=== PATIENT | male | born 1985 | race Caucasian/White ===

== ENCOUNTER 2016-04-21 23:27 | Emergency (ER) | payer OTHER, MEDICAID ==
[2015-07-15 13:00] VITALS: Ht 177.8 cm; Wt 113.4 kg
[~2016-04-21] VITALS: Ht 177.8 cm; Wt 113.4 kg
[~2016-04-21 23:27] MED LIST: AMLO2.5T2 PO; AMOX500T2; BRI.2% OP; CINA90TA PO; CLAR500T; ERYT500T74 PO; FURO40TA5 PO; GABA-531 PO; GLIP-201 PO; GLIP5TAB13 PO; GLU500 PO; HTN MED; HYDR-1115 PO; HYDR-1189 PO; HYDR-4039 PO; LABE100T PO; LATA2.5D6 OP; METFORMIN; METH500T PO; METO-290 PO; METO-442 PO; NOR10 PO; OMEP20CA10 PO; OMEP20CA4; OMEP20CA4 PO; ONDA4TAB5 PO; PRO40 PO; SITA100T7 PO; TIMO5DRO4 OP; VALS160T2 PO; VALS80TA2 PO
[2016-04-21 23:42] VITALS: BP_SYST 165; BP_SYST 197; BP_DIAS 113; BP_DIAS 90; PULSE 78; RESP 18; TEMP 97.8; O2SAT 99
[2016-04-22 00:22] LABS: BASOPHILS % (AUTO) 0.7 % (0.0-2.0); EOSINOPHILS # (AUTO) 0.1 K/uL (0.0-0.4); EOSINOPHILS % (AUTO) 1.7 % (0.0-4.0); HEMATOCRIT 30.5 % (36-54); HEMOGLOBIN 10.2 g/dL (14.0-18.0); LYMPHOCYTES # (AUTO) 1.3 K/uL (1.0-5.5); MEAN CORPUSCULAR HEMOGLOBIN 31 pg (27-31); MEAN CORPUSCULAR HGB CONC 33 % (32-36); MEAN CORPUSCULAR VOLUME 93 fL (79.0-98.0); MONOCYTES # (AUTO) 0.6 K/uL (0.0-1.0); MONOCYTES % (AUTO) 11.1 % (1.7-9.3); NEUTROPHILS # (AUTO) 3.8 K/uL (1.8-7.7); NEUTROPHILS % (AUTO) 63.5 % (40.0-70.0); PLATELET COUNT (AUTO) 210 K/uL (130-430); RED BLOOD CELL COUNT(AUTO) 3.29 MIL/uL (4.2-6.2); RED CELL DISTRIBUTION WIDTH 13.5 % (9.0-15.0); WHITE BLOOD COUNT (AUTO) 5.8 K/uL (4.8-10.8)
[2016-04-22 00:41] LABS: POTASSIUM 4.6 mmol/L (3.5-5.1)
[2016-04-22 00:42] LABS: ALBUMIN 3.6 g/dL (3.4-4.8); TOTAL BILIRUBIN 0.4 mg/dL (0.0-1.0); TOTAL PROTEIN, SERUM 7.5 g/dL (6.4-8.3)
[2016-04-22 01:00] LABS: CREATININE 10.07 mg/dL (0.55-1.30)
[2016-04-22] MEDS ORDERED: HYDROmorphone 2 MG/ML VIAL IM ONE (02:00)
[2016-04-22] MEDS ORDERED: ONDANSETRON 4 MG ODT TAB PO ONE ×2 (02:30→02:45)
[2016-04-22 02:50] VITALS: BP 197/114; PULSE 74; RESP 18; TEMP 97.8; O2SAT 99
== END 2016-04-22 02:50 | disposition home or self-care (01) ==
LOC: SED 23:27
DX: E11.43 Type 2 diabetes mellitus with diabetic autonomic (poly)neuropathy (principal); K31.84 Gastroparesis; I10 Essential (primary) hypertension; Z88.8 Allergy status to other drugs, medicaments and biological substances
CPT/HCPCS: 36415; 80053; 83690; 85025; 96372; 99284; J1170; Q0162

== ENCOUNTER 2016-04-30 06:59 | Inpatient (IN) | payer OTHER, MEDICAID ==
[2016-04-30] VITALS (8 sets, daily range): BP systolic 119–235; BP diastolic 76–146; PULSE 74–97; RESP 18–20; TEMP 97.3–98.5; O2SAT 97–99
[~2016-04-30] VITALS: Ht 177.8 cm; Wt 110.7 kg
[2016-04-30 07:39] LABS: BASOPHILS # (AUTO) 0.2 K/uL (0.0-0.2); BASOPHILS % (AUTO) 1.5 % (0.0-2.0); EOSINOPHILS # (AUTO) 0.1 K/uL (0.0-0.4); EOSINOPHILS % (AUTO) 0.6 % (0.0-4.0); HEMATOCRIT 30.6 % (36-54); HEMOGLOBIN 10.6 g/dL (14.0-18.0); LYMPHOCYTES # (AUTO) 1.8 K/uL (1.0-5.5); LYMPHOCYTES % (AUTO) 14.5 % (20.5-51.5); MEAN CORPUSCULAR HEMOGLOBIN 31 pg (27-31); MEAN CORPUSCULAR HGB CONC 35 % (32-36); MEAN CORPUSCULAR VOLUME 88 fL (79.0-98.0); MONOCYTES # (AUTO) 0.5 K/uL (0.0-1.0); MONOCYTES % (AUTO) 4.1 % (1.7-9.3); NEUTROPHILS # (AUTO) 9.6 K/uL (1.8-7.7); NEUTROPHILS % (AUTO) 79.3 % (40.0-70.0); PLATELET COUNT (AUTO) 295 K/uL (130-430); RED BLOOD CELL COUNT(AUTO) 3.47 MIL/uL (4.2-6.2); RED CELL DISTRIBUTION WIDTH 12.8 % (9.0-15.0); WHITE BLOOD COUNT (AUTO) 12.2 K/uL (4.8-10.8)
[2016-04-30 07:48] LABS: INR 0.9 (0.80-1.20); PROTHROMBIN TIME 10.3 SECS (9.5-12.5)
[2016-04-30 07:54] LABS: ALBUMIN 3.8 g/dL (3.4-4.8); CALCIUM 8.5 mg/dL (8.4-11.0); POTASSIUM 4.7 mmol/L (3.5-5.1); TOTAL BILIRUBIN 0.5 mg/dL (0.0-1.0); TOTAL PROTEIN, SERUM 8.3 g/dL (6.4-8.3)
[2016-04-30 07:56] LABS: BILIRUBIN,URINE NEGATIVE (NEGATIVE); BLOOD, URINE 2+ (NEGATIVE); CLARITY/URINE CLEAR (CLEAR); COLOR,URINE YELLOW (YELLOW); GLUCOSE,URINE TRACE (NEGATIVE); KETONES,URINE NEGATIVE (NEGATIVE); LEUKOCYTE ESTERASE ,URINE NEGATIVE (NEGATIVE); NITRITE, URINE NEGATIVE (NEGATIVE); PH,URINE 7.5 (5.0-8.0); PROTEIN URINE 3+ (NEGATIVE); UROBILINOGEN,URINE 0.2 (0.2-1.0)
[2016-04-30] MEDS ORDERED: MORPHINE 4 MG/ML INJ. SYRINGE IVP ONE (08:00)
[2016-04-30] MEDS ORDERED: ONDANSETRON HCL 4 MG/2 ML VIAL IVP ONE (08:00)
[2016-04-30] MEDS ORDERED: hydrALAZINE HCL 20 MG/ML VIAL IVP ONE (08:00)
[2016-04-30] MEDS ORDERED: PROCHLORPERAZINE EDISYLATE 10 MG/2 ML VIAL IVP ONE (08:00)
[2016-04-30 08:02] LABS: CREATININE 12.03 mg/dL (0.55-1.30)
[2016-04-30] MEDS ORDERED: HYDROmorphone 1 MG INJ. 1 MG/ML AMPUL IVP ONE (08:15)
[2016-04-30 08:26] LABS: BACTERIA,URINE FEW /HPF (None Seen); MUCUS,URINE None Seen /LPF (None Seen); WBC,URINE 0-3 /HPF (0-3)
[2016-04-30] MEDS ORDERED: NITROGLYCERIN 1 INCH (GM) OINT. TP ONE (09:00)
[2016-04-30] MEDS ORDERED: ZOLPIDEM TARTRATE 5 MG TABLET PO PRN (09:30)
[2016-04-30] MEDS ORDERED: MAGNESIUM SULFATE 50 ML IV PRN (09:30)
[2016-04-30] MEDS ORDERED: ACETAMINOPHEN 325 MG TABLET PO PRN (09:30)
[2016-04-30] MEDS ORDERED: METOPROLOL TARTRATE 5 MG/5 ML VIAL IVP PRN (09:30)
[2016-04-30] MEDS ORDERED: HYDROcodone/ACETAMIN 5-325 MG TAB (NORCO/ VICODIN) PO PRN (09:30)
[2016-04-30] MEDS ORDERED: LORazepam 2 MG/ML VIAL IVP PRN (09:30)
[2016-04-30] MEDS ORDERED: POTASSIUM CHLORIDE 10 MEQ TAB.PRT.SR PO PRN (09:30)
[2016-04-30] MEDS ORDERED: INSULIN ASPART 100 UNITS/ML, 10 ML VIAL (NovoLOG) SUBCUT PRN (09:30)
[2016-04-30] MEDS ORDERED: DEXTROSE 50% JECT 50 ML DISP.SYRIN IVP PRN (09:30)
[2016-04-30] MEDS ORDERED: DOCUSATE SODIUM 100 MG CAPSULE PO PRN (09:30)
[2016-04-30] MEDS: MORPHINE 2 MG/ML INJ. SYRINGE IVP PRN ×4 (11:25→23:55)
[2016-04-30] MEDS: ONDANSETRON HCL 4 MG/2 ML VIAL IVP PRN ×2 (11:29→20:22)
[2016-04-30] MEDS ORDERED: HEPARIN SODIUM, PORCINE 10,000 UNITS/ 10 ML VIAL IV ONE (15:00)
[2016-04-30] MEDS: hydrALAZINE HCL 25 MG TABLET PO SCH ×2 (15:00→20:25)
[2016-04-30] MEDS: METOCLOPRAMIDE HCL 10 MG/2 ML VIAL IVP SCH ×2 (15:00→22:05)
[2016-04-30] MEDS ORDERED: HEPARIN SODIUM,PORCINE 5000 UNITS/ML VIAL SUBCUT ONE (15:00)
[2016-04-30] MEDS: VALSARTAN 160 MG TABLET (DIOVAN) PO SCH (20:23)
[2016-04-30] MEDS: FUROSEMIDE 40 MG TABLET PO SCH (20:24)
[2016-04-30] MEDS: METOPROLOL TARTRATE 50 MG TABLET PO SCH (20:24)
[2016-04-30] MEDS: HEPARIN SODIUM,PORCINE 5000 UNITS/ML VIAL SUBCUT SCH (20:27)
[2016-04-30] MEDS: BRIMONIDINE TARTRATE 0.2% 5 mL EYE DROPS OP SCH (20:28)
[2016-04-30] MEDS: LATANOPROST 2.5 ML DROPS (XALATAN) OP SCH (20:28)
[2016-04-30] MEDS: TIMOLOL MALEATE 0.5% OPHTHALMIC DROPS 5 ML OP SCH (20:28)
[2016-05-01 00:38] VITALS: BP 162/79; PULSE 82; RESP 18; TEMP 98.5; O2SAT 96
[2016-05-01 04:06] VITALS: BP 146/78; PULSE 71; RESP 20; TEMP 98.6; O2SAT 91
[2016-05-01] MEDS: ONDANSETRON HCL 4 MG/2 ML VIAL IVP PRN ×2 (04:34→11:23)
[2016-05-01] MEDS: MORPHINE 2 MG/ML INJ. SYRINGE IVP PRN ×5 (04:34→21:07)
[2016-05-01] MEDS: METOCLOPRAMIDE HCL 10 MG/2 ML VIAL IVP SCH ×3 (06:27→23:24)
[2016-05-01 07:25] LABS: BASOPHILS % (AUTO) 0.3 % (0.0-2.0); EOSINOPHILS % (AUTO) 0.3 % (0.0-4.0); HEMATOCRIT 30.2 % (36-54); HEMOGLOBIN 10.3 g/dL (14.0-18.0); LYMPHOCYTES # (AUTO) 1.7 K/uL (1.0-5.5); LYMPHOCYTES % (AUTO) 15.2 % (20.5-51.5); MEAN CORPUSCULAR HEMOGLOBIN 31 pg (27-31); MEAN CORPUSCULAR HGB CONC 34 % (32-36); MEAN CORPUSCULAR VOLUME 90 fL (79.0-98.0); MONOCYTES # (AUTO) 0.7 K/uL (0.0-1.0); MONOCYTES % (AUTO) 6.6 % (1.7-9.3); NEUTROPHILS # (AUTO) 8.6 K/uL (1.8-7.7); NEUTROPHILS % (AUTO) 77.6 % (40.0-70.0); PLATELET COUNT (AUTO) 311 K/uL (130-430); RED BLOOD CELL COUNT(AUTO) 3.36 MIL/uL (4.2-6.2); RED CELL DISTRIBUTION WIDTH 12.6 % (9.0-15.0)
[2016-05-01 07:37] LABS: CALCIUM 8.3 mg/dL (8.4-11.0); POTASSIUM 3.7 mmol/L (3.5-5.1)
[2016-05-01 07:52] LABS: CREATININE 8.64 mg/dL (0.55-1.30)
[2016-05-01] MEDS: VALSARTAN 160 MG TABLET (DIOVAN) PO SCH ×2 (08:32→21:10)
[2016-05-01] MEDS: hydrALAZINE HCL 25 MG TABLET PO SCH ×3 (08:32→21:11)
[2016-05-01] MEDS: METOPROLOL TARTRATE 50 MG TABLET PO SCH ×2 (08:33→21:10)
[2016-05-01] MEDS: amLODIPine BESYLATE 5 MG TABLET PO SCH (08:33)
[2016-05-01] MEDS: PANTOPRAZOLE SODIUM 40 MG TAB PO SCH (08:35)
[2016-05-01] MEDS: CINACALCET HCL 30 MG TABLET PO SCH (08:35)
[2016-05-01] MEDS: LABETALOL HCL 100 MG TABLET PO SCH (08:36)
[2016-05-01] MEDS: FUROSEMIDE 40 MG TABLET PO SCH ×2 (08:37→21:09)
[2016-05-01] MEDS: BRIMONIDINE TARTRATE 0.2% 5 mL EYE DROPS OP SCH ×2 (08:38→21:08)
[2016-05-01] MEDS: TIMOLOL MALEATE 0.5% OPHTHALMIC DROPS 5 ML OP SCH ×2 (08:38→21:08)
[2016-05-01] MEDS: HEPARIN SODIUM,PORCINE 5000 UNITS/ML VIAL SUBCUT SCH ×2 (08:41→21:12)
[2016-05-01] MEDS: METHOCARBAMOL 500 MG TABLET PO SCH ×2 (08:46→21:10)
[2016-05-01] MEDS: GABAPENTIN 300 MG CAPSULE PO SCH ×3 (08:46→21:10)
[2016-05-01] MEDS ORDERED: CINACALCET HCL 30 MG TABLET PO SCH (09:00)
[2016-05-01 12:25] VITALS: BP 151/91; PULSE 83; RESP 16; TEMP 97; O2SAT 98
[2016-05-01 16:00] VITALS: BP 177/103; PULSE 82; RESP 21; TEMP 98.2; O2SAT 99
[2016-05-01 19:35] VITALS: BP 154/77; PULSE 84; RESP 18; TEMP 98.9; O2SAT 97
[2016-05-01] MEDS: LATANOPROST 2.5 ML DROPS (XALATAN) OP SCH (21:09)
[2016-05-02 00:28] VITALS: BP 133/92; PULSE 79; RESP 17; TEMP 98.8; O2SAT 93
[2016-05-02] MEDS: MORPHINE 2 MG/ML INJ. SYRINGE IVP PRN ×5 (02:13→20:01)
[2016-05-02] MEDS: ONDANSETRON HCL 4 MG/2 ML VIAL IVP PRN ×3 (02:18→19:59)
[2016-05-02 04:18] VITALS: BP 153/97; PULSE 83; RESP 20; TEMP 97.8; O2SAT 97
[2016-05-02] MEDS: METOCLOPRAMIDE HCL 10 MG/2 ML VIAL IVP SCH ×3 (06:56→22:12)
[2016-05-02 07:31] LABS: CALCIUM 7.5 mg/dL (8.4-11.0)
[2016-05-02 07:37] LABS: BASOPHILS # (AUTO) 0.1 K/uL (0.0-0.2); BASOPHILS % (AUTO) 0.6 % (0.0-2.0); EOSINOPHILS # (AUTO) 0.1 K/uL (0.0-0.4); EOSINOPHILS % (AUTO) 0.7 % (0.0-4.0); HEMATOCRIT 27.5 % (36-54); HEMOGLOBIN 9.4 g/dL (14.0-18.0); LYMPHOCYTES # (AUTO) 3.9 K/uL (1.0-5.5); LYMPHOCYTES % (AUTO) 38.4 % (20.5-51.5); MEAN CORPUSCULAR HEMOGLOBIN 31 pg (27-31); MEAN CORPUSCULAR HGB CONC 34 % (32-36); MEAN CORPUSCULAR VOLUME 90 fL (79.0-98.0); NEUTROPHILS # (AUTO) 5.1 K/uL (1.8-7.7); NEUTROPHILS % (AUTO) 50.3 % (40.0-70.0); PLATELET COUNT (AUTO) 309 K/uL (130-430); RED BLOOD CELL COUNT(AUTO) 3.05 MIL/uL (4.2-6.2); RED CELL DISTRIBUTION WIDTH 12.8 % (9.0-15.0); WHITE BLOOD COUNT (AUTO) 10.2 K/uL (4.8-10.8)
[2016-05-02 07:54] LABS: CREATININE 10.18 mg/dL (0.55-1.30)
[2016-05-02 08:06] VITALS: BP 148/85; PULSE 74; RESP 17; TEMP 98.4; O2SAT 99
[2016-05-02] MEDS: BRIMONIDINE TARTRATE 0.2% 5 mL EYE DROPS OP SCH ×2 (09:10→22:04)
[2016-05-02] MEDS: TIMOLOL MALEATE 0.5% OPHTHALMIC DROPS 5 ML OP SCH ×2 (09:10→22:08)
[2016-05-02] MEDS: amLODIPine BESYLATE 5 MG TABLET PO SCH (09:11)
[2016-05-02] MEDS: METOPROLOL TARTRATE 50 MG TABLET PO SCH ×2 (09:11→22:10)
[2016-05-02] MEDS: METHOCARBAMOL 500 MG TABLET PO SCH ×2 (09:11→22:16)
[2016-05-02] MEDS: PANTOPRAZOLE SODIUM 40 MG TAB PO SCH (09:12)
[2016-05-02] MEDS: VALSARTAN 160 MG TABLET (DIOVAN) PO SCH ×2 (09:12→22:12)
[2016-05-02] MEDS: FUROSEMIDE 40 MG TABLET PO SCH ×2 (09:12→22:11)
[2016-05-02] MEDS: CINACALCET HCL 30 MG TABLET PO SCH (09:12)
[2016-05-02] MEDS: GABAPENTIN 300 MG CAPSULE PO SCH ×3 (09:12→22:12)
[2016-05-02] MEDS: hydrALAZINE HCL 25 MG TABLET PO SCH ×3 (09:13→22:11)
[2016-05-02] MEDS: LABETALOL HCL 100 MG TABLET PO SCH (09:14)
[2016-05-02] MEDS: HEPARIN SODIUM,PORCINE 5000 UNITS/ML VIAL SUBCUT SCH ×2 (09:15→22:15)
[2016-05-02] MEDS ORDERED: DIATR MEGLU/DIATRIZ SOD 30 ML SOLUTION PO ONE (09:24)
[2016-05-02 12:16] VITALS: BP 140/80; PULSE 72; RESP 16; TEMP 98; O2SAT 97
[2016-05-02 14:11] VITALS: Ht 177.8 cm; Wt 110.7 kg
[2016-05-02 15:30] VITALS: BP 136/71; PULSE 82; RESP 19; TEMP 98.4; O2SAT 99
[2016-05-02] MEDS ORDERED: EPOETIN ALFA 3,000 UNITS/ML VIAL SUBCUT SCH (17:00)
[2016-05-02 19:53] VITALS: BP 142/81; PULSE 81; RESP 18; TEMP 98.8; O2SAT 98
[2016-05-02] MEDS: LATANOPROST 2.5 ML DROPS (XALATAN) OP SCH (22:07)
[2016-05-03] MEDS: MORPHINE 2 MG/ML INJ. SYRINGE IVP PRN ×3 (00:22→10:26)
[2016-05-03 01:17] VITALS: BP 141/87; PULSE 80; RESP 17; TEMP 98.4; O2SAT 98
[2016-05-03 04:48] VITALS: BP 148/86; PULSE 76; RESP 18; TEMP 98.5; O2SAT 94
[2016-05-03] MEDS: METOCLOPRAMIDE HCL 10 MG/2 ML VIAL IVP SCH (05:36)
[2016-05-03 07:30] LABS: BASOPHILS # (AUTO) 0.1 K/uL (0.0-0.2); BASOPHILS % (AUTO) 0.9 % (0.0-2.0); EOSINOPHILS # (AUTO) 0.1 K/uL (0.0-0.4); HEMATOCRIT 26.1 % (36-54); HEMOGLOBIN 9.1 g/dL (14.0-18.0); LYMPHOCYTES # (AUTO) 3.4 K/uL (1.0-5.5); LYMPHOCYTES % (AUTO) 34.1 % (20.5-51.5); MEAN CORPUSCULAR HEMOGLOBIN 31 pg (27-31); MEAN CORPUSCULAR HGB CONC 35 % (32-36); MEAN CORPUSCULAR VOLUME 89 fL (79.0-98.0); MONOCYTES # (AUTO) 0.8 K/uL (0.0-1.0); MONOCYTES % (AUTO) 8.3 % (1.7-9.3); NEUTROPHILS # (AUTO) 5.5 K/uL (1.8-7.7); NEUTROPHILS % (AUTO) 55.7 % (40.0-70.0); PLATELET COUNT (AUTO) 316 K/uL (130-430); RED BLOOD CELL COUNT(AUTO) 2.92 MIL/uL (4.2-6.2); RED CELL DISTRIBUTION WIDTH 12.7 % (9.0-15.0); WHITE BLOOD COUNT (AUTO) 9.9 K/uL (4.8-10.8)
[2016-05-03 07:49] LABS: POTASSIUM 4.2 mmol/L (3.5-5.1)
[2016-05-03 07:58] LABS: CREATININE 11.17 mg/dL (0.55-1.30)
[2016-05-03 08:15] VITALS: BP 164/93; PULSE 82; RESP 20; TEMP 98.6; O2SAT 99
[2016-05-03] MEDS: METHOCARBAMOL 500 MG TABLET PO SCH (08:22)
[2016-05-03] MEDS: TIMOLOL MALEATE 0.5% OPHTHALMIC DROPS 5 ML OP SCH (08:22)
[2016-05-03] MEDS: CINACALCET HCL 30 MG TABLET PO SCH (08:22)
[2016-05-03] MEDS: GABAPENTIN 300 MG CAPSULE PO SCH (08:22)
[2016-05-03] MEDS: FUROSEMIDE 40 MG TABLET PO SCH (08:23)
[2016-05-03] MEDS: BRIMONIDINE TARTRATE 0.2% 5 mL EYE DROPS OP SCH (08:24)
[2016-05-03] MEDS: HEPARIN SODIUM,PORCINE 5000 UNITS/ML VIAL SUBCUT SCH (08:25)
[2016-05-03] MEDS: PANTOPRAZOLE SODIUM 40 MG TAB PO SCH (08:26)
[2016-05-03] MEDS: hydrALAZINE HCL 25 MG TABLET PO SCH (09:00)
[2016-05-03] MEDS: VALSARTAN 160 MG TABLET (DIOVAN) PO SCH (09:00)
[2016-05-03] MEDS: METOPROLOL TARTRATE 50 MG TABLET PO SCH (09:00)
[2016-05-03] MEDS: amLODIPine BESYLATE 5 MG TABLET PO SCH (09:00)
[2016-05-03] MEDS: LABETALOL HCL 100 MG TABLET PO SCH (09:00)
[2016-05-03 11:42] VITALS: BP 154/88; PULSE 79; RESP 20; TEMP 98.4; O2SAT 99
[2016-05-03] MEDS: ONDANSETRON HCL 4 MG/2 ML VIAL IVP PRN (11:52)
[2016-05-03 12:28] VITALS: BP 149/103; PULSE 74; RESP 18; TEMP 97.8; O2SAT 97
== END 2016-05-03 13:38 | disposition home or self-care (01) | DRG 682 ==
LOC: SED 06:59 → STU 09:01
PROVIDERS: ADMIT General Practice; ATTEND General Practice
PROC: 5A1D00Z (ICD-10-PCS; principal; 2016-04-30)
DX: I12.0 Hypertensive chronic kidney disease with stage 5 chronic kidney disease or end stage renal disease (principal); N18.6 End stage renal disease; N17.9 Acute kidney failure, unspecified; I16.0 Hypertensive urgency; E11.43 Type 2 diabetes mellitus with diabetic autonomic (poly)neuropathy; E11.65 Type 2 diabetes mellitus with hyperglycemia; E11.319 Type 2 diabetes mellitus with unspecified diabetic retinopathy without macular edema; D63.1 Anemia in chronic kidney disease; D72.829 Elevated white blood cell count, unspecified; E11.22 Type 2 diabetes mellitus with diabetic chronic kidney disease; F12.90 Cannabis use, unspecified, uncomplicated; G89.29 Other chronic pain; H54.0 Blindness, both eyes; K21.9 Gastro-esophageal reflux disease without esophagitis; K27.9 Peptic ulcer, site unspecified, unspecified as acute or chronic, without hemorrhage or perforation; K31.84 Gastroparesis; M62.838 Other muscle spasm; Z99.2 Dependence on renal dialysis; Z83.3 Family history of diabetes mellitus; Z87.891 Personal history of nicotine dependence; Z91.14 Patient's other noncompliance with medication regimen; Z88.8 Allergy status to other drugs, medicaments and biological substances; Z79.899 Other long term (current) drug therapy
CPT/HCPCS: 36415; 71010; 74000-TC; 80048; 80053; 81000-TC; 82962; 83690-TC; 83735-TC; 85025; 85610-TC; 85730-TC; 87081; 90935; 96374; 96375; 99285; J0360; J0780; J0885; J1170; J1644; J1815; J2270; J2405; J2765; J3490; J7030; Q9964

== ENCOUNTER 2016-05-23 20:23 | Inpatient (IN) | payer OTHER, MEDICAID ==
[~2016-05-23] VITALS: Ht 177.8 cm; Wt 113.4 kg
[2016-05-23 20:30] VITALS: BP 203/135; PULSE 84; RESP 13; TEMP 98.2; O2SAT 95
--- NOTE | 2016-05-23 20:30 | NUR ---
Patient to ER bed 4 to gown for evaluation. Side rails up. Report given to BRANNON Diaz.
--- NOTE | 2016-05-23 20:40 | NUR ---
Pt c/o 10/10 headache and LUQ abdominal pain. Reports he has also been experiencing N/V (vomited x5 at home) and SOB. Pt reports he is also legally blind. Pt saw opthamologist earlier today and was prescribed vicodin for eye pain. Pt reports r eye swelling began after administration of vicodin, along w other symptoms he was experiencing. Pt reports he has taken vicodin before and did not experience any symptoms. Mild distress noted. Will continue to monitor.
[2016-05-23] MEDS ORDERED: PANTOPRAZOLE SODIUM 40 MG/VIAL (PROTONIX) IVP ONE (20:45)
[2016-05-23] MEDS ORDERED: DIPHENHYDRAMINE INJ 50 MG/ML VIAL IVP ONE (20:45)
[2016-05-23] MEDS ORDERED: METOCLOPRAMIDE HCL 10 MG/2 ML VIAL IVP ONE (20:45)
--- NOTE | 2016-05-23 20:45 | NUR ---
ER Dr. Davalos at bedside examining patient.
--- NOTE | 2016-05-23 20:50 | NUR ---
# 20 gauge angiocath placed to L FA. Use of asceptic technique. Opsite placed over site. Blood return noted. Flushed with 10 cc of normal saline. No evidence of infiltration noted. Patient tolerated well.
[2016-05-23 21:28] LABS: BASOPHILS # (AUTO) 0.1 K/uL (0.0-0.2); BASOPHILS % (AUTO) 0.5 % (0.0-2.0); EOSINOPHILS # (AUTO) 0.1 K/uL (0.0-0.4); EOSINOPHILS % (AUTO) 1.1 % (0.0-4.0); HEMATOCRIT 31.2 % (36-54); HEMOGLOBIN 10.2 g/dL (14.0-18.0); LYMPHOCYTES # (AUTO) 1.3 K/uL (1.0-5.5); LYMPHOCYTES % (AUTO) 10.9 % (20.5-51.5); MEAN CORPUSCULAR HEMOGLOBIN 31 pg (27-31); MEAN CORPUSCULAR HGB CONC 33 % (32-36); MEAN CORPUSCULAR VOLUME 93 fL (79.0-98.0); MONOCYTES # (AUTO) 0.3 K/uL (0.0-1.0); MONOCYTES % (AUTO) 2.4 % (1.7-9.3); NEUTROPHILS # (AUTO) 10.2 K/uL (1.8-7.7); NEUTROPHILS % (AUTO) 85.1 % (40.0-70.0); PLATELET COUNT (AUTO) 348 K/uL (130-430); RED BLOOD CELL COUNT(AUTO) 3.36 MIL/uL (4.2-6.2); RED CELL DISTRIBUTION WIDTH 14.3 % (9.0-15.0)
[2016-05-23 21:30] LABS: CALCIUM 7.4 mg/dL (8.4-11.0)
[2016-05-23] MEDS ORDERED: HYDROmorphone 1 MG INJ. 1 MG/ML AMPUL IVP ONE ×2 (21:30→22:30)
[2016-05-23] MEDS ORDERED: ONDANSETRON HCL 4 MG/2 ML VIAL IVP ONE ×2 (21:30→22:30)
[2016-05-23 21:35] LABS: ALBUMIN 3.5 g/dL (3.4-4.8); TOTAL BILIRUBIN 0.4 mg/dL (0.0-1.0); TOTAL PROTEIN, SERUM 7.2 g/dL (6.4-8.3)
[2016-05-23 21:39] LABS: CREATININE 9.84 mg/dL (0.55-1.30); POTASSIUM 5.8 mmol/L (3.5-5.1)
[2016-05-23] MEDS ORDERED: SODIUM POLYSTYRENE SULFONATE 15 GM/60 ML UDBTL PO ONE (22:15)
[2016-05-23] MEDS ORDERED: hydrALAZINE HCL 20 MG/ML VIAL IVP ONE ×2 (22:30→23:15)
--- NOTE | 2016-05-24 00:25 | NUR ---
Patient will be admitted to care of Dr Phelan. Admitted to ICU unit. Pt currently on hold in ER, no available nurse in ICU at this time. Will continue to monitor
[2016-05-24] MEDS ORDERED: METH500T PO (00:42)
[2016-05-24] MEDS ORDERED: CINA90TA PO (00:42)
[2016-05-24] MEDS ORDERED: ALPR0.2583 PO (00:42)
[2016-05-24] MEDS ORDERED: SITA100T7 PO (00:42)
[2016-05-24] MEDS ORDERED: METO-442 PO (00:42)
[2016-05-24] MEDS ORDERED: CLON0.1T PO (00:42)
[2016-05-24] MEDS ORDERED: HYDR-3110 PO (00:42)
[2016-05-24] MEDS ORDERED: LABETALOL 100 MG/ 20ML VIAL IVP ONE ×3 (00:45→01:45)
--- NOTE | 2016-05-24 00:53 | NUR ---
Hypertension Bp continues to remain elevated, 183/112. 2nd dose of Labetolol 20mg IVp administered. Will continue to monitor pt.
[2016-05-24] MEDS ORDERED: GABAPENTIN 300 MG CAPSULE PO SCH (01:00)
[2016-05-24] MEDS ORDERED: HYDROcodone/ACETAMIN 5-325 MG TAB (NORCO/ VICODIN) PO PRN ×2 (01:00)
[2016-05-24] MEDS ORDERED: METHOCARBAMOL 500 MG TABLET PO SCH (01:00)
[2016-05-24] MEDS ORDERED: ALPRAZolam 0.25 MG TABLET PO SCH (01:00)
[2016-05-24] MEDS: cloNIDine HCL 0.2 MG TABLET PO PRN ×2 (01:56→18:44)
[2016-05-24] MEDS: MORPHINE 2 MG/ML INJ. SYRINGE IVP PRN ×5 (01:56→17:22)
--- NOTE | 2016-05-24 02:00 | NUR ---
Pain Pt c/o 10/10 pain to abdomen. Will admininster morphine per MD order and continue to monitor
[2016-05-24] MEDS ORDERED: cloNIDine HCL 0.1 MG TABLET ONE (02:02)
[2016-05-24] MEDS: ONDANSETRON HCL 4 MG/2 ML VIAL IVP PRN ×4 (02:07→15:35)
--- NOTE | 2016-05-24 04:00 | NUR ---
No acute changes in condition noted at this time. Pt resting comfortably. BP slowly decreasing. Pt moved to ER bed 6 for comfort. Will continue to monitor
[2016-05-24] MEDS: METOPROLOL TARTRATE 5 MG/5 ML VIAL IVP PRN ×2 (04:35→11:04)
[2016-05-24] MEDS ORDERED: hydrALAZINE HCL 25 MG TABLET ONE (05:37)
--- NOTE | 2016-05-24 06:00 | NUR ---
Pain Pt c/o abdominal pain, requesting pain medication. Medicated w Morphine per MD order. No acute distress noted. Bp continues to remain elevated. Will continue to monitor.
[2016-05-24] MEDS: hydrALAZINE HCL 25 MG TABLET PO SCH ×3 (06:03→20:10)
--- NOTE | 2016-05-24 07:26 | NUR ---
Pt care endorsed to BRANNON Cuello.
--- NOTE | 2016-05-24 07:30 | NUR ---
Assumed care, pt AAOx4. Pt 's L eye swollen at ice pack given.Dr. Phelan call to downgrade pt. BP 172/99. Pt reports dialysis schedule T,,SAT.
[2016-05-24] MEDS ORDERED: ONDANSETRON HCL 4 MG/2 ML VIAL ONE (08:09)
--- NOTE | 2016-05-24 08:09 | NUR ---
Pt c/o nausea.Pt medicated w/ zofran. pt tolerated well.Continuing to monitor.
--- NOTE | 2016-05-24 08:15 | NUR ---
Pt medicated for pain 12/27.
--- NOTE | 2016-05-24 08:39 | NUR ---
O2 sat NC applied after Morphine administration.
--- NOTE | 2016-05-24 09:05 | NUR ---
Received order for admission to telemetry.
--- NOTE | 2016-05-24 10:05 | NUR ---
Patient will be admitted to care of . Admitted to Telemetry unit. Will go to room 116A. Summary report printed. Report given to Admission RN.
--- NOTE | 2016-05-24 10:30 | NUR ---
Initial Note Received pt from ER as a transfer due to the patient admitted in ICU last night but no bed available. No medications have been administered for 9am, dialysis order will be given to soda dry house operator for today, admission assessment will be done. Pt aaox4, verbal. Orders will be carried out. Charge nurse and nurse applications project manager aware of situation with pt.
--- NOTE | 2016-05-24 10:33 | NUR ---
ADMIT NOTE Received pt from ER to the floor with a diagnosis of Hypertensive crisis and Intractable vomitting. Admission process initiated. Patient oriented to pain management, safety and call light-teach back done.
--- NOTE | 2016-05-24 10:45 | NUR ---
Initial note A/O x 4, mild SOB and receiving 3 L O2, denied chest pain, but c/o R side of head pain 12/27. Patient aware he already took pain med. Denied N/V. Skin warm to touch, One tattoo at L upper chest, and one tattoo at upper back. One dialysis cath at R upper chest, IV #20 at L FA, patent, free of infection or infiltration. +2 radial and pedal pulses without edema, distended ABD but soft, denied pain on ABD or legs. Call light within reach, will continue to monitor patient. Addendum: 05/24/16 at 1401 by Laya Quintana RN NOTED PT HAS SWELLING ON RIGHT EYE, NOT ABLE TO OPEN IT, ABLE TO OPEN LEFT EYE, RESPONSE OF PUPIL IS 3MM, REACTIVE TO LIGHT, ROUND, ACCOMMODATE.
[2016-05-24] MEDS: FUROSEMIDE 40 MG TABLET PO SCH ×2 (10:59→20:09)
[2016-05-24] MEDS: VALSARTAN 160 MG TABLET (DIOVAN) PO SCH ×2 (10:59→20:09)
[2016-05-24] MEDS: amLODIPine BESYLATE 5 MG TABLET PO SCH (11:00)
[2016-05-24] MEDS: LABETALOL HCL 100 MG TABLET PO SCH (11:00)
[2016-05-24] MEDS: METOPROLOL TARTRATE 50 MG TABLET PO SCH ×2 (11:00→20:08)
[2016-05-24] MEDS: CINACALCET HCL 30 MG TABLET PO SCH (11:01)
[2016-05-24] MEDS: PANTOPRAZOLE SODIUM 40 MG TAB PO SCH (11:01)
[2016-05-24 11:12] VITALS: BP 188/108; PULSE 98; RESP 16; TEMP 97.9; O2SAT 98
[2016-05-24] MEDS: INSULIN REGULAR, HUMAN 100 UNITS/ML, 10 ML VIAL (novoLIN R) SUBCUT PRN ×2 (11:21→17:38)
[2016-05-24] MEDS: TIMOLOL MALEATE 0.5% OPHTHALMIC DROPS 5 ML OP SCH ×2 (11:25→20:31)
--- NOTE | 2016-05-24 11:35 | NUR ---
CALL Dr rick pratt, awaiting call back to notify him of possible nondisplaced fracture of right orbital floor, charge nurse aware. Addendum: 05/24/16 at 1144 by Laya Quintana RN Dr Phelan made aware, no new orders given.
--- NOTE | 2016-05-24 12:25 | NUR ---
Round A/O x 4, mild SOB and receiving 3 L O2, denied chest pain, but c/o R side of head pain 7/10. Sleep/rest in bed. Denied N/V. Skin warm to touch, Dialysis cath at R upper chest, IV #20 at L FA, patent, free of infection or infiltration. clear lung sounds and bowel sounds present all quadrants. Rechecked VS was 161/98/88, O2 sat 100% on 3 L. +2 radial and pedal pulses without edema, distended ABD but soft, denied pain on ABD or legs. Call light within reach, will continue to monitor patient.
--- NOTE | 2016-05-24 13:41 | NUR ---
CONSULT CALLED FOR CONSULT FOR PATIENT WITH DR. LARA FOR RIGHT ORBIT INFLAMMATION . SPOKE WITH DIDI
--- NOTE | 2016-05-24 14:15 | NUR ---
Round A/O x 4, mild SOB and receiving 3 L O2, denied chest pain, pain subsided. Blind on both eyes. Sleep/rest in bed. Denied N/V. Skin warm to touch, Dialysis cath at R upper chest, IV #20 at L FA, patent, free of infection or infiltration. clear lung sounds and bowel sounds present all quadrants. Assisted patient urination by using urinal. Clear light yellow urine noted. +2 radial and pedal pulses without edema, distended ABD but soft, denied pain on ABD or legs. Call light within reach, will continue to monitor patient.
--- NOTE | 2016-05-24 15:43 | NUR ---
CALL Paged Dr Morales in regards to pain medication, per pt morphine is not effective and wants dilaudid, awaiting call back. Addendum: 05/24/16 at 1705 by Laya Quintana RN SPOKE WITH DR MORALES, HE WILL COME IN AND SEE PT AND ASSESS PAIN MEDICATIONS.
--- NOTE | 2016-05-24 16:00 | NUR ---
Round A/O x 4, mild SOB and receiving 3 L O2, denied chest pain, pain subsided. Blind on both eyes. Sleep/rest in bed. Skin warm to touch, Dialysis cath at R upper chest, IV #20 at L FA, patent, free of infection or infiltration. clear lung sounds and bowel sounds present all quadrants. Vomiting x 1, Zofran given. +2 radial and pedal pulses without edema, distended ABD but soft, denied pain on ABD or legs. Call light within reach, will continue to monitor patient.
--- NOTE | 2016-05-24 16:05 | NUR ---
MEDICATION REASSESSMENT Pt no longer feels nauseas, no vomiting noted, will continue to monitor pt for any changes. Dr cabrera repaged to notify him of pain medication not being effective, awaiting call back.
[2016-05-24 16:20] VITALS: BP 166/86; PULSE 86; RESP 18; TEMP 98.6; O2SAT 99
--- NOTE | 2016-05-24 18:02 | NUR ---
Closing Note Pt in bed, no s/s of distress or sob noted, pt resting comfortably with eyes closed, pt receiving dialysis at this time, pt in stable condition. Needs met throughout shift. Bed at lowest position, call light within reach, will endorse care of pt to incoming nurse.
[2016-05-24] MEDS ORDERED: ALPRAZolam 0.25 MG TABLET PO PRN (18:15)
[2016-05-24 20:00] VITALS: BP 202/126; PULSE 85; RESP 18; TEMP 98.3; O2SAT 98
--- NOTE | 2016-05-24 20:00 | NUR ---
Initial Notes Received patient laying in bed, awake, alert, oriented. Patient currently finishing HD, family at bedside. Patient denies any acute distress, but complains of headache, will medicate per MD orders. Patient is blind both eyes. Blood pressure elevated. Breathing even and unlabored on 3L N/C. IV site patent/clean/dry. Joao cath to right chest wall, dressing clean/dry/intact. Educated patient on use of call light for assistance and fall precautions, patient verbalized understanding. Call light in hand, will continue to monitor.
[2016-05-24] MEDS: HYDROmorphone 1 MG INJ. 1 MG/ML AMPUL IVP PRN (20:08)
[2016-05-24] MEDS: LATANOPROST 2.5 ML DROPS (XALATAN) OP SCH (20:32)
--- NOTE | 2016-05-24 22:00 | NUR ---
Rounds Patient resting in bed, awake, family at bedside. Patient denies any acute distress or pain at this time. Breathing even and unlabored. Needs addressed, call light in hand, will continue to monitor.
--- NOTE | 2016-05-25 | NUR ---
Rounds Patient resting in bed with eyes closed. No acute distress noted, breathing even and unlabored. Call light in hand, will continue to monitor.
[2016-05-25 01:05] VITALS: BP 152/96; PULSE 79; RESP 18; TEMP 98.6; O2SAT 100
[2016-05-25] MEDS: HYDROmorphone 1 MG INJ. 1 MG/ML AMPUL IVP PRN ×6 (01:16→21:54)
[2016-05-25 01:49] LABS: BILIRUBIN,URINE NEGATIVE (NEGATIVE); CLARITY/URINE CLEAR (CLEAR); COLOR,URINE YELLOW (YELLOW); GLUCOSE,URINE 1+ (NEGATIVE); KETONES,URINE NEGATIVE (NEGATIVE); LEUKOCYTE ESTERASE ,URINE NEGATIVE (NEGATIVE); NITRITE, URINE NEGATIVE (NEGATIVE); PH,URINE 7.5 (5.0-8.0); PROTEIN URINE 3+ (NEGATIVE); UROBILINOGEN,URINE 0.2 (0.2-1.0)
[2016-05-25 01:59] LABS: BLOOD, URINE TRACE (NEGATIVE)
--- NOTE | 2016-05-25 02:00 | NUR ---
Rounds Patient resting comfortably in bed with eyes closed, easily aroused upon nurse entering room. Patient denies any acute distress or pain at this time. Breathing even and unlabored. Needs addressed. Call light in hand, fall precautions in place. Will continue to monitor.
[2016-05-25 02:08] LABS: BACTERIA,URINE FEW /HPF (None Seen); MUCUS,URINE None Seen /LPF (None Seen); RBC,URINE 0-3 /HPF (0-3); WBC,URINE 0-3 /HPF (0-3)
[2016-05-25 03:31] VITALS: BP 186/99; PULSE 84; RESP 18; TEMP 98; O2SAT 97
[2016-05-25] MEDS: METOPROLOL TARTRATE 5 MG/5 ML VIAL IVP PRN ×2 (03:55→16:35)
--- NOTE | 2016-05-25 04:00 | NUR ---
Rounds Patient resting in bed, easily aroused. Patient denies any acute distress or pain at this time. Breathing even and unlabored. Medicated patient for elevated BP per MD orders. Needs addressed. Call light in hand, fall precautions in place. Will continue to monitor.
[2016-05-25 05:05] VITALS: BP 157/98; PULSE 80
[2016-05-25] MEDS: hydrALAZINE HCL 25 MG TABLET PO SCH ×3 (05:14→21:47)
--- NOTE | 2016-05-25 06:29 | NUR ---
Closing Notes Patient resting in bed with eyes closed, easily aroused. Patient denies any acute distress or pain at this time. Breathing even and unlabored on room air. IV site patent/clean/dry, no S/S infection/infiltration noted. Needs addressed throughout shift. Call light in hand, fall precautions in place. Will continue to monitor for changes and safety, and endorse all patient care/needs to oncoming nurse.
[2016-05-25 07:56] LABS: BASOPHILS % (AUTO) 0.4 % (0.0-2.0); EOSINOPHILS # (AUTO) 0.1 K/uL (0.0-0.4); EOSINOPHILS % (AUTO) 0.7 % (0.0-4.0); HEMATOCRIT 30.4 % (36-54); LYMPHOCYTES # (AUTO) 1.2 K/uL (1.0-5.5); LYMPHOCYTES % (AUTO) 10.8 % (20.5-51.5); MEAN CORPUSCULAR HEMOGLOBIN 31 pg (27-31); MEAN CORPUSCULAR HGB CONC 33 % (32-36); MEAN CORPUSCULAR VOLUME 94 fL (79.0-98.0); MONOCYTES # (AUTO) 0.6 K/uL (0.0-1.0); MONOCYTES % (AUTO) 5.5 % (1.7-9.3); NEUTROPHILS # (AUTO) 8.8 K/uL (1.8-7.7); NEUTROPHILS % (AUTO) 82.6 % (40.0-70.0); PLATELET COUNT (AUTO) 267 K/uL (130-430); RED BLOOD CELL COUNT(AUTO) 3.24 MIL/uL (4.2-6.2); RED CELL DISTRIBUTION WIDTH 14.6 % (9.0-15.0); WHITE BLOOD COUNT (AUTO) 10.7 K/uL (4.8-10.8)
--- NOTE | 2016-05-25 08:00 | NUR ---
OPENING NOTE: RECEIVED REPORT FROM NIGHT NURSE. PATIENT IS RESTING COMFORTABLY IN BED. NO S/S OF DISTRESS OR SOB. PATIENT IS ALERT AND ORIENTED, ABLE TO EXPRESS NEEDS, AND ASK FOR ASSISTANCE. VITAL SIGNS TAKEN, BLOOD PRESSURE IS ELEVATED. MORNING MEDICATIONS FOR BLOOD PRESSURE WILL BE GIVEN. ASSESSMENT COMPLETE. CALL LIGHT IN REACH, BED IN LOWEST POSITION, AND WILL CONTINUE TO MONITOR.
[2016-05-25 08:45] VITALS: BP 192/109; PULSE 92; RESP 18; TEMP 97.5; O2SAT 94
[2016-05-25 09:07] LABS: CALCIUM 8.1 mg/dL (8.4-11.0); POTASSIUM 4.4 mmol/L (3.5-5.1)
[2016-05-25 09:08] LABS: THYROID STIMULATING HORMONE 1.28 uIu/mL (0.36-3.74)
[2016-05-25 09:10] LABS: CREATININE 7.66 mg/dL (0.55-1.30)
[2016-05-25] MEDS: ONDANSETRON HCL 4 MG/2 ML VIAL IVP PRN ×3 (09:16→18:52)
[2016-05-25] MEDS: CINACALCET HCL 30 MG TABLET PO SCH (09:18)
[2016-05-25] MEDS: amLODIPine BESYLATE 5 MG TABLET PO SCH (09:18)
[2016-05-25] MEDS: METOPROLOL TARTRATE 50 MG TABLET PO SCH ×2 (09:19→21:00)
[2016-05-25] MEDS: PANTOPRAZOLE SODIUM 40 MG TAB PO SCH (09:19)
[2016-05-25] MEDS: VALSARTAN 160 MG TABLET (DIOVAN) PO SCH ×2 (09:19→21:00)
[2016-05-25] MEDS: FUROSEMIDE 40 MG TABLET PO SCH ×2 (09:19→21:00)
[2016-05-25] MEDS: TIMOLOL MALEATE 0.5% OPHTHALMIC DROPS 5 ML OP SCH ×2 (09:20→22:00)
--- NOTE | 2016-05-25 09:20 | NUR ---
PAIN PATIENT C/O OF PAIN 12/27. PAIN MEDICATION WAS ADMINISTERED. PATIENT EDUCATED ON MEDICATION SIDE-EFFECTS AND ON USING THE CALL LIGHT TO CALL FOR ASSISTANCE. PATIENT IS LEGALLY BLIND. BED ALARM IS ON. PATIENT VERBALIZED UNDERSTANDING.
[2016-05-25] MEDS: LABETALOL HCL 100 MG TABLET PO SCH (09:21)
--- NOTE | 2016-05-25 10:00 | NUR ---
NOTE: PATIENT IS RESTING COMFORTABLY IN BED. NO S.S OF DISTRESS OR SOB. PATIENT IS ALERT AND ORIENTED, ABLE TO EXPRESS NEEDS, AND ASK FOR ASSISTANCE. CALL LIGHT IN REACH, BED IN LOWEST POSITION, AND WILL CONTINUE TO MONITOR.
[2016-05-25 11:45] LABS: URINE SODIUM, RANDOM 47 mmol/L (40-220)
--- NOTE | 2016-05-25 13:30 | NUR ---
PAIN C/O OF 10 PAIN. PAIN MEDICATION ADMINISTERED. PATIENT EDUCATED ON USING CALL LIGHT TO CALL FOR HELP OR ASSISTANCE.
[2016-05-25 16:00] VITALS: BP 169/124; PULSE 97; RESP 21; TEMP 98.7; O2SAT 99
[2016-05-25] MEDS: INSULIN REGULAR, HUMAN 100 UNITS/ML, 10 ML VIAL (novoLIN R) SUBCUT PRN (18:02)
--- NOTE | 2016-05-25 18:35 | NUR ---
CLOSING NOTE: PATIENT IS RESTING COMFORTABLY IN BED. NO S.S OF DISTRESS OR SOB. PATIENT IS ALERT AND ORIENTED, ABLE TO EXPRESS NEEDS, AND ASK FOR ASSISTANCE. FAMILY AT BEDSIDE. CALL LIGHT IN REACH, BED IN LOWEST POSITION, AND WILL GIVE REPORT TO NIGHT NURSE.
[2016-05-25 20:00] VITALS: BP 198/110; PULSE 80; RESP 18; TEMP 97.4; O2SAT 98
--- NOTE | 2016-05-25 20:00 | NUR ---
Initial Notes Received patient resting in bed, awake, alert, oriented, family at bedside. Patient denies any acute distress or pain at this time, does complain of nausea, medicated per MD order by prior nurse. Breathing even and unlabored on room air. IV site patent/clean/dry. Patient's BP elevated, Dr. Patiño on unit and made awake. MD made aware that patient feeling nauseous and unable to take PO medication at this time. Educated patient on use of call light for assistance and fall precautions, patient verbalized understanding. Call light in hand, fall precautions in place, will continue to monitor.
[2016-05-25] MEDS: hydrALAZINE HCL 20 MG/ML VIAL IVP PRN (20:14)
[2016-05-25] MEDS: METHOCARBAMOL 500 MG TABLET PO SCH (21:00)
[2016-05-25] MEDS: GABAPENTIN 300 MG CAPSULE PO SCH (21:00)
[2016-05-25] MEDS: LATANOPROST 2.5 ML DROPS (XALATAN) OP SCH (21:00)
[2016-05-25] MEDS: LABETALOL 100 MG/ 20ML VIAL IVP PRN (21:55)
[2016-05-25] MEDS: BRIMONIDINE TARTRATE 0.2% 5 mL EYE DROPS OP PRN (22:00)
--- NOTE | 2016-05-25 22:00 | NUR ---
Rounds Patient resting in bed. Denies any acute distress. Medicated patient for pain and elevated BP per MD orders. Needs addressed. Call light in hand, fall precautions in place. Will continue to monitor. Spoke with Dr. Phelan on telephone, orders received for Dr. Francis for GI consult.
[2016-05-26] VITALS (7 sets, daily range): BP systolic 159–211; BP diastolic 92–136; PULSE 97–110; RESP 17–22; TEMP 97.2–98.6; O2SAT 94–99
--- NOTE | 2016-05-26 | NUR ---
Rounds Patient resting in bed, easily aroused. Patient denies any acute distress or pain at this time. Breathing even and unlabored. Needs addressed. Latest BP has improved. Will continue to monitor for changes and safety.
--- NOTE | 2016-05-26 02:00 | NUR ---
Rounds Patient resting in bed with eyes closed. No acute distress noted, breathing even and unlabored. Call light in hand, fall precautions in place. Will continue to monitor for changes and safety.
[2016-05-26] MEDS: ONDANSETRON HCL 4 MG/2 ML VIAL IVP PRN ×4 (04:00→20:54)
[2016-05-26] MEDS: hydrALAZINE HCL 20 MG/ML VIAL IVP PRN ×3 (04:00→16:21)
--- NOTE | 2016-05-26 04:00 | NUR ---
Rounds Patient resting in bed, awake. Patient denies any acute distress. Breathing even and unlabored. Medicated patient for pain and nausea. Blood pressure elevated, medicated per MD order. Needs addressed. Call light in hand, fall precautions in place. Will continue to monitor.
[2016-05-26] MEDS: HYDROmorphone 1 MG INJ. 1 MG/ML AMPUL IVP PRN ×4 (04:01→21:01)
[2016-05-26] MEDS: LABETALOL 100 MG/ 20ML VIAL IVP PRN ×2 (05:07→09:45)
[2016-05-26] MEDS: INSULIN REGULAR, HUMAN 100 UNITS/ML, 10 ML VIAL (novoLIN R) SUBCUT PRN ×4 (05:45→21:21)
[2016-05-26] MEDS: hydrALAZINE HCL 25 MG TABLET PO SCH ×3 (05:45→22:00)
--- NOTE | 2016-05-26 06:31 | NUR ---
Closing Notes Patient sitting up edge of bed. Patient denies any acute distress or pain at this time. Breathing even and unlabored on room air. IV site patent/clean/dry, no S/S infection/infiltration noted. Patient currently denies any nausea, stating PRN medication did help. Sliding scale insulin held for blood sugar of 188, due to patient stating he will not be eating breakfast due to fear of nausea. Blood pressure continues to be elevated, will follow MD orders for administering PRN medication. Needs addressed throughout shift. Call light in hand, fall precautions in place. Will continue to monitor for changes and safety, and endorse all patient care/needs to oncoming nurse.
--- NOTE | 2016-05-26 07:57 | NUR ---
OPENING NOTE: RECEIVED REPORT FROM NIGHT NURSE. PATIENT IS RESTING IN BED. NO S/S OF DISTRESS OR SOB. PATIENT C/O OF PAIN AND DISCOMFORT. PAIN MEDICATION WILL BE ADMINISTERED. BLOOD PRESSURE ELEVATED AND PRN MEDICATION WILL ALSO BE ADMINISTERED. ASSESSMENT COMPLETE. IV IS PATENT. CALL LIGHT IN REACH, BED IN LOWEST POSITION, AND WILL CONTINUE TO MONITOR.
--- NOTE | 2016-05-26 08:01 | NUR ---
CALLED GI CONSULT TO DR LIZARRAGA ASSISTANT PROFESSOR OF RELIGION FOR DR DENG, RE: NAUSEA AND VOMITING. SPOKE TO NICHOLAS
[2016-05-26] MEDS: TIMOLOL MALEATE 0.5% OPHTHALMIC DROPS 5 ML OP SCH ×2 (08:10→21:07)
[2016-05-26 08:34] LABS: BASOPHILS # (AUTO) 0.2 K/uL (0.0-0.2); HEMATOCRIT 31.8 % (36-54); HEMOGLOBIN 10.6 g/dL (14.0-18.0); LYMPHOCYTES # (AUTO) 0.9 K/uL (1.0-5.5); LYMPHOCYTES % (AUTO) 7.6 % (20.5-51.5); MEAN CORPUSCULAR HEMOGLOBIN 31 pg (27-31); MEAN CORPUSCULAR HGB CONC 34 % (32-36); MEAN CORPUSCULAR VOLUME 92 fL (79.0-98.0); MONOCYTES # (AUTO) 0.5 K/uL (0.0-1.0); MONOCYTES % (AUTO) 4.2 % (1.7-9.3); NEUTROPHILS # (AUTO) 10.6 K/uL (1.8-7.7); NEUTROPHILS % (AUTO) 86.2 % (40.0-70.0); PLATELET COUNT (AUTO) 330 K/uL (130-430); RED BLOOD CELL COUNT(AUTO) 3.47 MIL/uL (4.2-6.2); RED CELL DISTRIBUTION WIDTH 14.7 % (9.0-15.0); WHITE BLOOD COUNT (AUTO) 12.2 K/uL (4.8-10.8)
[2016-05-26] MEDS ORDERED: cloNIDine HCL 0.2 MG TABLET PO PRN (08:45)
[2016-05-26 08:46] LABS: ALBUMIN 3.8 g/dL (3.4-4.8); CALCIUM 8.6 mg/dL (8.4-11.0); PHOSPHORUS 7.1 mg/dL (2.7-4.5); POTASSIUM 4.1 mmol/L (3.5-5.1); TOTAL BILIRUBIN 0.6 mg/dL (0.0-1.0)
[2016-05-26 08:48] LABS: CREATININE 9.53 mg/dL (0.55-1.30)
[2016-05-26] MEDS: PANTOPRAZOLE SODIUM 40 MG TAB PO SCH (09:00)
[2016-05-26] MEDS: METHOCARBAMOL 500 MG TABLET PO SCH ×2 (09:00→21:12)
[2016-05-26] MEDS: amLODIPine BESYLATE 5 MG TABLET PO SCH (09:00)
[2016-05-26] MEDS: VALSARTAN 160 MG TABLET (DIOVAN) PO SCH ×2 (09:00→21:12)
[2016-05-26] MEDS: FUROSEMIDE 40 MG TABLET PO SCH ×2 (09:00→21:09)
[2016-05-26] MEDS: GABAPENTIN 300 MG CAPSULE PO SCH ×3 (09:00→21:13)
[2016-05-26] MEDS: LABETALOL HCL 100 MG TABLET PO SCH (09:00)
[2016-05-26] MEDS: CINACALCET HCL 30 MG TABLET PO SCH (09:00)
[2016-05-26] MEDS: METOPROLOL TARTRATE 50 MG TABLET PO SCH ×2 (09:00→21:11)
--- NOTE | 2016-05-26 10:00 | NUR ---
NOTE: PATIENT IS RESTING COMFORTABLY IN BED. NO S/S OF DISTRESS OR SOB. PATIENT IS ALERT AND ORIENTED, ABLE TO EXPRESS NEEDS, AND ASK FOR ASSISTANCE. CALL LIGHT IN REACH, BED IN LOWEST POSITION, AND WILL CONTINUE TO MONITOR.
[2016-05-26] MEDS ORDERED: HEPARIN IV FLUSH 300 UNITS/3ML SYR INJ ONE (11:15)
--- NOTE | 2016-05-26 11:41 | NUR ---
BLOOD SUGAR BLOOD SUGAR CHECK REVEALED GLUCOSE OF 174. INSULIN IS BEING HELD AT THIS MOMENT DUE TO THE PATIENT NOT EATING.
--- NOTE | 2016-05-26 12:15 | NUR ---
NOTE: PATIENT IN DIALYSIS. NO S/S OF DISTRESS OR SOB. CALL LIGHT IN REACH, BED IN LOWEST POSITION, AND WILL CONTINUE TO MONITOR.
[2016-05-26] MEDS ORDERED: HEPARIN SODIUM, PORCINE 10,000 UNITS/ 10 ML VIAL MC ONE (12:30)
[2016-05-26] MEDS ORDERED: HEPARIN SODIUM,PORCINE 5000 UNITS/ML VIAL MC ONE (12:45)
--- NOTE | 2016-05-26 14:10 | NUR ---
dialysis dialysis is complete. total of 4300 fluid removed. blood pressure stable.
--- NOTE | 2016-05-26 15:09 | NUR ---
PATIENT TAKEN TO NUCLEAR MEDICINE
--- NOTE | 2016-05-26 15:39 | NUR ---
NOTE: PATIENT BACK FROM [place]. PATIENT WAS UNABLE TO RECEIVE EXAM BECAUSE HE WAS UNABLE TO EAT THE EGGS DUE TO THE NAUSEA.
--- NOTE | 2016-05-26 16:06 | NUR ---
DISCHARGE PLANNING DC order for visually impaired case. Called contracted vendor [employer] spoke with Giovanna who stated tri-fold cane for visually impaired patients is not covered benefit. Giovanna stated Medicare covers standardized canes. BRENTON Jackson made aware.
[2016-05-26] MEDS ORDERED: DIATR MEGLU/DIATRIZ SOD 30 ML SOLUTION PO ONE (17:14)
--- NOTE | 2016-05-26 17:32 | NUR ---
US AND CAT SCAN US AND CAT SCAN GETTING POSTPONED UNTIL TOMORROW AM. PATIENT AND PATIENT'S FAMILY DID NOT WANT TO WAIT LONGER AND DECIDED TO FEED PATIENT AND ASK FOR EXAM TO OCCUR TOMORROW. CAT SCAN GETTING DELAYED UNTIL TOMORROW ALSO BY PATIENT AND PATIENTS FAMILY REQUEST. ULTRASOUND AND CT AWARE. PATIENT REFUSED CT WHEN TECH CAME FOR HIM. CHARGE NURSE TYLER AWARE.
--- NOTE | 2016-05-26 18:09 | NUR ---
CLOSING NOTE: PATIENT IS RESTING COMFORTABLY IN BED. NO S/S OF DISTRESS OR SOB. PATIENT IS ALERT AND ORIENTED, ABLE TO EXPRESS NEEDS, AND ASK FOR ASSISTANCE. CALL LIGHT IN REACH, BED IN LOWEST POSITION, AND WILL GIVE REPORT TO NIGHT NURSE.
--- NOTE | 2016-05-26 19:35 | NUR ---
OPENING NOTES TOOK REPORT FROM DAY SHIFT NURSE AT BEDSIDE. PATIENT IS RESTING, SITTING UP IN BED. PATIENT IS NAUSEAS, BUT NOT CURRENTLY VOMITING. IV IS PATENT. BED ALARM IS ON, BED IN LOWEST POSITION. CALL LIGHT WITHIN REACH. MOTHER IS AT BEDSIDE. WILL CONTINUE TO MONITOR.
[2016-05-26] MEDS: LATANOPROST 2.5 ML DROPS (XALATAN) OP SCH (21:19)
--- NOTE | 2016-05-26 21:30 | NUR ---
NOTES PATIENT IS RESTING, SITTING UP IN BED. PATIENT STATES HE IS NAUSEATED AND IS VOMITING SMALL AMOUNTS OF BILE. PATIENT INFORMED THAT HE WILL BE NPO AT MIDNIGHT FOR TESTS TOMORROW. PATIENT VERBALIZED UNDERSTANDING. IV PATENT. BED IN LOWEST POSITION, BED ALARM ON, AND CALL LIGHT WITHIN REACH. WILL CONTINUE TO MONITOR.
--- NOTE | 2016-05-26 23:30 | NUR ---
NOTES PATIENT IS IN BED. STILL REPORTS THAT HE IS NAUSEATED. HE HAS VOMITED SMALL AMOUNTS OF BILE. IV PATENT. BED IN LOWEST POSITION, BED ALARM ON, AND CALL LIGHT WITHIN REACH. WILL CONTINUE TO MONITOR.
[2016-05-27 00:04] VITALS: BP 152/118; PULSE 95; RESP 18; TEMP 98.2; O2SAT 97
--- NOTE | 2016-05-27 01:30 | NUR ---
NOTES PATIENT STATES HE IS HAVING TROUBLE SLEEPING DUE TO THE NAUSEA HE IS HAVING SOMETIMES. HE IS SITTING UP IN BED OVER RECEPTACLE TO VOMIT. HE IS CONTINUING TO VOMITING SMALL AMOUNTS OF BILE. IV PATENT. BED IN LOWEST POSITION, BED ALARM ON, AND CALL LIGHT WITHIN REACH. WILL CONTINUE TO MONITOR.
--- NOTE | 2016-05-27 03:21 | NUR ---
REQUESTS BED ALARM TO BE KEPT OFF PT'S MOM REQUESTED TO HAVE BED ALARM OFF, EDUCATED HER ON THE IMPORTANCE OF HAVING IT ON. PT'S STATED SHE IS AT BEDSIDE AT ALL TIMES AND WILL ANSWER TO HIS NEEDS. BED IN LOW POSITION, CALL LIGHT WITHIN REACH. FREQUENT MONITORING BEING DONE.
--- NOTE | 2016-05-27 03:30 | NUR ---
NOTES PATIENT IS SITTING IN CHAIR WITH MOTHER AT HIS SIDE. PATIENT STATES THAT HE IS VERY NAUSEATED AND IN PAIN WITH A RATE OF 10 OUT OF 10. UPON SALINE FLUSH OF IV INFILTRATED. WILL START ANOTHER IV.
[2016-05-27] MEDS: ONDANSETRON HCL 4 MG/2 ML VIAL IVP PRN ×4 (03:32→16:46)
[2016-05-27] MEDS: hydrALAZINE HCL 20 MG/ML VIAL IVP PRN (03:33)
[2016-05-27] MEDS: HYDROmorphone 1 MG INJ. 1 MG/ML AMPUL IVP PRN ×5 (03:33→21:16)
--- NOTE | 2016-05-27 03:54 | NUR ---
IV START NEW IV STARTED, LEFT FOREARM 22G. PATIENT TOLERATED WELL. BLOOD PRESSURE AND PAIN MEDICATION GIVEN. PATIENT IS SITTING IN A CHIR BY BED WITH MOTHER AT HIS SIDE. WILL CONTINUE TO MONITOR.
[2016-05-27 04:08] VITALS: BP 198/138; PULSE 99; RESP 18; TEMP 98.5; O2SAT 98
--- NOTE | 2016-05-27 05:45 | NUR ---
NOTES PATIENT IS SITTING IN CHAIR WITH MOTHER AT BEDSIDE. PATIENT IS STILL NAUSEAS AND VOMITING SMALL AMOUNTS OF BILE. PATIENT STATES THAT HE IS IN PAIN. PATIENT EDUCATED ON THE TIMING OF PAIN AND NAUSEA MEDICATIONS. PATIENT VERBALIZED UNDERSTANDING. IV PATENT. BED IN LOWEST POSITION, BED ALARM SET, CALL LIGHT WITHIN REACH. WILL CONTINUE TO MONITOR.
[2016-05-27] MEDS: hydrALAZINE HCL 25 MG TABLET PO SCH ×3 (07:04→21:22)
[2016-05-27 07:25] LABS: BASOPHILS % (AUTO) 0.3 % (0.0-2.0); LYMPHOCYTES # (AUTO) 1.1 K/uL (1.0-5.5); LYMPHOCYTES % (AUTO) 8.7 % (20.5-51.5); MEAN CORPUSCULAR HEMOGLOBIN 32 pg (27-31); MEAN CORPUSCULAR HGB CONC 34 % (32-36); MEAN CORPUSCULAR VOLUME 94 fL (79.0-98.0); MONOCYTES # (AUTO) 0.9 K/uL (0.0-1.0); MONOCYTES % (AUTO) 6.5 % (1.7-9.3); NEUTROPHILS # (AUTO) 11.1 K/uL (1.8-7.7); NEUTROPHILS % (AUTO) 84.5 % (40.0-70.0); PLATELET COUNT (AUTO) 325 K/uL (130-430); RED BLOOD CELL COUNT(AUTO) 3.74 MIL/uL (4.2-6.2); RED CELL DISTRIBUTION WIDTH 14.5 % (9.0-15.0); WHITE BLOOD COUNT (AUTO) 13.1 K/uL (4.8-10.8)
--- NOTE | 2016-05-27 07:45 | NUR ---
CLOSING NOTES PROVIDED REPORT TO ONCOMING DAY SHIFT NURSE AT BEDSIDE. PATIENT IS NPO FOR TESTS. PATIENT VERBALIZED UNDERSTANDING. INSULIN COVERAGE NOT GIVE, PATIENT NPO, ALSO MOTHER AT BEDSIDE MOTHER REFUSED FOR PATIENT. NO SIGNS AND SYMPTOMS OF HYPOGLYCEMIA OR HYPERGLYCEMIA OR DISTRESS NOTED. BED IN LOWEST POSITION, BED ALARM ON, AND CALL LIGHT WITHIN REACH. ENDORSED CARE TO DAY SHIFT NURSE.
--- NOTE | 2016-05-27 07:50 | NUR ---
AM NOTE Received patient laying in bed, awake, alert, oriented. Mother is at bedside. Patient has no complaints of pain or discomfort. Patient's IV site patent, clean and dry. Joao cath to right chest wall, dressing clean/dry/intact. Educated patient on use of call light and if assistance is needed to call, patient verbalized understanding. Call light in hand, will continue to monitor.
[2016-05-27 07:59] LABS: ALBUMIN 3.9 g/dL (3.4-4.8); BILIRUBIN,DIRECT 0.2 mg/dL (0.0-0.3); CALCIUM 8.8 mg/dL (8.4-11.0); PHOSPHORUS 7.7 mg/dL (2.7-4.5); TOTAL BILIRUBIN 0.6 mg/dL (0.0-1.0); TOTAL PROTEIN, SERUM 8.1 g/dL (6.4-8.3)
[2016-05-27 08:16] LABS: CREATININE 7.76 mg/dL (0.55-1.30)
[2016-05-27 08:18] VITALS: BP 150/85; PULSE 64; RESP 14; TEMP 98; O2SAT 94
--- NOTE | 2016-05-27 09:04 | NUR ---
Nutrition Update Buddy Scale 18 noted. Pt admitted for HTN crisis, intractable N/V. Diet: CCHO, renal standard BMI: 35.9 kg/m2 RD to follow per nutrition care standards.
[2016-05-27] MEDS ORDERED: DIATR MEGLU/DIATRIZ SOD 30 ML SOLUTION PO ONE (09:12)
--- NOTE | 2016-05-27 09:20 | NUR ---
RN ROUNDS Patient is resting in bed, patient does not complain of any discomfort or pain, instructed patient to use call ragland if assistance is need, patient verbalized understanding, bed in lowest position, call ragland in patient's hand, two side rails up, will continue to monitor.
--- NOTE | 2016-05-27 11:05 | NUR ---
RN ROUNDS Patient is back from CT Scan, medications given to patient, late due to patient NPO for procedures, educated patient and mother on potential side effects of medication, patient and mother verbalized understanding, instructed patient to use call ragland if assistance is needed, patient verbalized understanding, bed in lowest position, fall precautions in place. Will continue to monitor patient.
[2016-05-27] MEDS: PANTOPRAZOLE SODIUM 40 MG TAB PO SCH (11:12)
[2016-05-27] MEDS: GABAPENTIN 300 MG CAPSULE PO SCH ×3 (11:12→21:19)
[2016-05-27] MEDS: CINACALCET HCL 30 MG TABLET PO SCH (11:13)
[2016-05-27] MEDS: METHOCARBAMOL 500 MG TABLET PO SCH ×2 (11:14→21:21)
[2016-05-27] MEDS: TIMOLOL MALEATE 0.5% OPHTHALMIC DROPS 5 ML OP SCH ×2 (11:15→21:18)
[2016-05-27] MEDS: FUROSEMIDE 40 MG TABLET PO SCH ×2 (11:16→21:20)
[2016-05-27] MEDS: METOPROLOL TARTRATE 50 MG TABLET PO SCH ×2 (11:16→21:21)
[2016-05-27] MEDS: VALSARTAN 160 MG TABLET (DIOVAN) PO SCH ×2 (11:17→21:22)
[2016-05-27] MEDS: amLODIPine BESYLATE 5 MG TABLET PO SCH (11:19)
[2016-05-27] MEDS: LABETALOL HCL 100 MG TABLET PO SCH (11:20)
[2016-05-27 11:42] VITALS: BP 182/92; PULSE 102; RESP 18; TEMP 99.8; O2SAT 98
[2016-05-27 12:07] LABS: HEPATITIS A AB, IgM Negative (Negative); HEPATITIS B CORE AB, IgM Negative (Negative); HEPATITIS B SURFACE AG Negative (Negative)
--- NOTE | 2016-05-27 13:00 | NUR ---
RN ROUNDS patient is resting in bed, mother is at bedside, no complaints of pain, instructed patient to use call ragland if assistance is needed, patient verbalized understanding, bed left in lowest position, bed alarm on, two side rails up, call ragland left in patient's hand, fall precautions in place.
--- NOTE | 2016-05-27 13:00 | NUR ---
RN ROUNDS Patient is resting in bed, no complaints of pain, mother is at bedside, instructed patient to use call ragland if assistance is needed, patient verbalized understanding, call ragland left in patient's hand, bed in lowest position, fall precautions in place.
[2016-05-27 13:53] VITALS: Ht 177.8 cm; Wt 113.4 kg
--- NOTE | 2016-05-27 14:30 | NUR ---
RN ROUNDS Patient is resting in bed, no signs of distress, no complaints of pain, call ragland in patient's hand, bed in lowest position, side rails up, fall precautions in place.
[2016-05-27 16:27] VITALS: BP 124/78; PULSE 80; RESP 18; TEMP 98.7; O2SAT 98
--- NOTE | 2016-05-27 16:50 | NUR ---
RN ROUNDS Patient is resting in bed, aunt is at bed side, patient is stating he is in pain and is feeling nauseous, Dilaudid 1mg was given and zofran was given, educated the patient on the potential side effects of medication, patient verbalized understanding, instructed patient to use call ragland if assistance is needed, patient verbalized understanding, bed in lowest position, call ragland in patient's hand, side rails up, fall precautions in place, will continue to monitor
--- NOTE | 2016-05-27 18:00 | NUR ---
RN ROUNDS Encouraged patient to eat dinner, patient stated he did not want to eat at this moment, that he just had Jello and it made him nauseous and he will call when he was ready to get help to eat dinner.
--- NOTE | 2016-05-27 18:39 | NUR ---
CLOSING NOTE: PATIENT IS RESTING COMFORTABLY IN BED. NO S/S OF DISTRESS, ALL NEEDS MET, CALL JOSEPH IN REACH, BED IN LOWEST POSITION, WILL ENDORSE TO NIGHT NURSE TO FOLLOW UP WITH CONSULT WITH DR. LARA.
--- NOTE | 2016-05-27 19:50 | NUR ---
ROUNDS PATIENT AWAKE, ALERT, ORIENTED, LEGALLY BLIND, VITALS STABLE. DENIES ANY PAIN AND DISCOMFORT AT THIS TIME. ASSESSMENT DONE AND DOCUMENTED. SEE FLOWSHEET. NEEDS ATTENDED TO. FAMILY AT THE BEDSIDE. SAFETY AND FALL PRECAUTION MEASURES MAINTAINED. BED IN LOW AND LOCKED POSITION. CALL LIGHT PLACED WITHIN REACH.
[2016-05-27] MEDS: LATANOPROST 2.5 ML DROPS (XALATAN) OP SCH (21:00)
--- NOTE | 2016-05-27 21:00 | NUR ---
MEDICATION DUE MEDICATIONS GIVEN ORDERED, TOLERATED WELL. WILL CONTINUE TO MONITOR.
[2016-05-27] MEDS: BRIMONIDINE TARTRATE 0.2% 5 mL EYE DROPS OP PRN (21:18)
[2016-05-28] VITALS: BP 100/73; PULSE 81; RESP 18; TEMP 98.3; O2SAT 96
--- NOTE | 2016-05-28 | NUR ---
PATIENT RESTING: Patient resting quietly. No acute distress noted. Vital signs within normal range.
--- NOTE | 2016-05-28 02:00 | NUR ---
ROUNDS PATIENT ASLEEP, NO SOB NOTED, WILL CONTINUE TO MONITOR.
[2016-05-28] MEDS: HYDROmorphone 1 MG INJ. 1 MG/ML AMPUL IVP PRN ×6 (02:25→23:08)
[2016-05-28 04:00] VITALS: BP 108/58; PULSE 71; RESP 17; TEMP 97.8; O2SAT 97
--- NOTE | 2016-05-28 04:00 | NUR ---
PATIENT RESTING: Patient resting quietly. No acute distress noted. Vital signs within normal range.
[2016-05-28] MEDS: hydrALAZINE HCL 25 MG TABLET PO SCH ×3 (06:18→22:04)
--- NOTE | 2016-05-28 06:51 | NUR ---
CLOSING NOTES PATIENT AWAKE, VITAL S STABLE, ALL NEEDS ATTENDED TO. SAFETY AND FALL PRECAUTION MEASURES MAINTAINED. CALL LIGHT PLACED WITHIN REACH.
--- NOTE | 2016-05-28 07:35 | NUR ---
PATIENT ASLEEP, BUT AROUSABLE. SR ON MONITOR. IV ON LEFT FA, #22, SL. BROWN ON LEFT CHEST, DRESSING CFI. WILL HAVE HD TODAY. CALL LIGHT IN PLACE, BED AT LOWEST POSITION, WILL CONTINUE TO MONITOR.
[2016-05-28 08:00] VITALS: BP 148/76; PULSE 87; RESP 18; TEMP 97.7; O2SAT 97
--- NOTE | 2016-05-28 08:10 | NUR ---
PATIENT BEGAN HD. V/S IS STABLE NO SIGNS OF DISTRESS NOTED.
[2016-05-28] MEDS: ONDANSETRON HCL 4 MG/2 ML VIAL IVP PRN ×2 (08:29→23:07)
[2016-05-28] MEDS: PANTOPRAZOLE SODIUM 40 MG TAB PO SCH (08:30)
[2016-05-28] MEDS: GABAPENTIN 300 MG CAPSULE PO SCH ×3 (08:30→20:33)
[2016-05-28] MEDS: CINACALCET HCL 30 MG TABLET PO SCH (08:30)
[2016-05-28] MEDS: METHOCARBAMOL 500 MG TABLET PO SCH ×2 (08:35→20:33)
[2016-05-28] MEDS: TIMOLOL MALEATE 0.5% OPHTHALMIC DROPS 5 ML OP SCH ×2 (08:37→20:33)
[2016-05-28] MEDS: METOPROLOL TARTRATE 50 MG TABLET PO SCH ×2 (09:00→20:34)
[2016-05-28] MEDS: FUROSEMIDE 40 MG TABLET PO SCH ×2 (09:00→20:34)
[2016-05-28] MEDS: VALSARTAN 160 MG TABLET (DIOVAN) PO SCH ×2 (09:00→20:34)
[2016-05-28] MEDS: LABETALOL HCL 100 MG TABLET PO SCH (09:00)
[2016-05-28] MEDS: amLODIPine BESYLATE 5 MG TABLET PO SCH (09:00)
--- NOTE | 2016-05-28 10:00 | NUR ---
PATIENT IS ABOUT 2 HOURS INTO HD. NO SIGNS OF DISTRESS NOTED, V/S STABLE.
[2016-05-28] MEDS ORDERED: HEPARIN SODIUM, PORCINE 10,000 UNITS/ 10 ML VIAL IV ONE ×2 (10:45)
--- NOTE | 2016-05-28 10:59 | NUR ---
10,000 UNITS OF HEPARIN IS GIVEN TO HD NURSE, WHO WILL USE THOSE TO FLUSH THE PORT.
[2016-05-28] MEDS ORDERED: HEPARIN SODIUM,PORCINE 5000 UNITS/ML VIAL MC ONE (11:00)
--- NOTE | 2016-05-28 12:10 | NUR ---
HD IS COMPLETE. 3.6-LITER OF FLUID IS REMOVED FROM PATIENT. V/S STABLE NO SIGNS OF DISTRESS NOTED.
[2016-05-28 12:36] VITALS: BP 127/79; PULSE 79; RESP 17; TEMP 98.1; O2SAT 97
--- NOTE | 2016-05-28 14:00 | NUR ---
Patient is resting, no signs of distress noted. SR on monitor.
--- NOTE | 2016-05-28 14:50 | NUR ---
Patient c/o abdomen pain, 09/26. Dilaudid 1mg ivp is given. will continue to monitor.
--- NOTE | 2016-05-28 15:40 | NUR ---
Patient states pain at 4/10. Will continue to monitor.
[2016-05-28 16:13] VITALS: BP 147/85; PULSE 81; RESP 17; TEMP 98.9; O2SAT 100
--- NOTE | 2016-05-28 18:00 | NUR ---
Patient's sugar is at 148. No coverage needed.
--- NOTE | 2016-05-28 19:37 | NUR ---
INITIAL NOTE Patient resting on the bed comfortable. Respiration even and unlabored. No acute distress. No c/o pain at this time. AO x 4. Skin warm and dry to touch. IV intact, no redness, no swelling. Joao cath intact to right upper chest, no bleeding, covered with transparent dressing. Discussed the, safety issue, use call light when need help, and plan of care, verbally understanding. Safety measure maintained. Call light within reached. Bed in low position, side rails up, bed alarm on. Will continue to monitor.
[2016-05-28 19:55] VITALS: BP 142/89; PULSE 84; RESP 18; TEMP 98.7; O2SAT 98
[2016-05-28] MEDS: BRIMONIDINE TARTRATE 0.2% 5 mL EYE DROPS OP PRN (20:33)
[2016-05-28] MEDS: LATANOPROST 2.5 ML DROPS (XALATAN) OP SCH (20:40)
--- NOTE | 2016-05-28 21:20 | NUR ---
ROUND Patient resting on the bed. No acute distress. Respiration even and unlabored. Mother at bedside. Safety measure maintained. Call light within reached. Bed in low position, bed alarm on, side rails up. Will continue to monitor.
--- NOTE | 2016-05-28 23:08 | NUR ---
DILAUDID AND ZOFRAN GIVEN Patient c/o abdomen pain 8/10 and nausea, Dilaudid 1mg IVP and Zofran 4mg IVP given as ordered. No acute distress. Call light within reached. Bed in low position, bed alarm on, side rails up. Continue to monitor.
--- NOTE | 2016-05-29 01:10 | NUR ---
ROUND Patient sleeping at this time. Respiration even and unlabored. Safety measure maintained. Bed in low position, side rails up, bed alarm on. Call light within reached, Continue to monitor.
[2016-05-29 01:15] VITALS: BP 108/69; PULSE 85; RESP 18; TEMP 98.6; O2SAT 97
--- NOTE | 2016-05-29 03:05 | NUR ---
ROUND Patient sleeping comfortable. Respiration even and unlabored. No acute distress. Safety measure maintained. Bed in low position, side rails up. Call light within reached. Continue to monitor.
[2016-05-29 03:55] VITALS: BP 130/75; PULSE 72; RESP 18; TEMP 98.4; O2SAT 98
--- NOTE | 2016-05-29 05:11 | NUR ---
ROUND Patient sleeping comfortable. No acute distress. Safety measure maintained. Bed in low position, side rails up. Call light within reached. Continue to monitor.
[2016-05-29] MEDS: ONDANSETRON HCL 4 MG/2 ML VIAL IVP PRN ×3 (05:33→14:45)
[2016-05-29] MEDS: HYDROmorphone 1 MG INJ. 1 MG/ML AMPUL IVP PRN ×3 (05:34→14:45)
--- NOTE | 2016-05-29 05:34 | NUR ---
DILAUDID AND ZOFRAN GIVEN Patient c/o abdomen pain 8/10 and nausea, Dilaudid 1mg IVP and Zofran 4mg IVP given as ordered. No acute distress. Also assisted to use urinal. Call light within reached. Bed in low position, bed alarm on, side rails up. Continue to monitor.
[2016-05-29] MEDS: hydrALAZINE HCL 25 MG TABLET PO SCH ×2 (06:45→14:56)
--- NOTE | 2016-05-29 06:45 | NUR ---
CLOSING NOTE Patient resting on the bed comfortable. Respiration even and unlabored. No acute distress. SL intact, no redness, no swelling. Joao cath intact to right upper chest, no bleeding, covered with transparent dressing. All needs met. Pain med given around clock. Hourly rounding during shift. Safety measure maintained. Call light within reached. Bed in low position, side rails up, bed alarm on. Will endorse to morning shift nurse.
--- NOTE | 2016-05-29 07:35 | NUR ---
AM ROUNDS Pt A/O, requesting pain medication, informed pt that pain medication was given two hours ago, next time due is 929...HL to LFA flushes well...Joao cath to Right chest wall with good bruit/thrill...Pt blind, placed call light/phone at side...Will cont to monitor
[2016-05-29 09:45] VITALS: BP 163/96; PULSE 83; RESP 20; TEMP 98.4; O2SAT 97
[2016-05-29] MEDS: TIMOLOL MALEATE 0.5% OPHTHALMIC DROPS 5 ML OP SCH (09:52)
[2016-05-29] MEDS: GABAPENTIN 300 MG CAPSULE PO SCH ×2 (09:53→14:56)
[2016-05-29] MEDS: BRIMONIDINE TARTRATE 0.2% 5 mL EYE DROPS OP PRN (09:53)
[2016-05-29] MEDS: amLODIPine BESYLATE 5 MG TABLET PO SCH (09:54)
[2016-05-29] MEDS: FUROSEMIDE 40 MG TABLET PO SCH (09:54)
[2016-05-29] MEDS: CINACALCET HCL 30 MG TABLET PO SCH (09:54)
[2016-05-29] MEDS: METOPROLOL TARTRATE 50 MG TABLET PO SCH (09:55)
[2016-05-29] MEDS: LABETALOL HCL 100 MG TABLET PO SCH (09:55)
[2016-05-29] MEDS: METHOCARBAMOL 500 MG TABLET PO SCH (09:55)
[2016-05-29] MEDS: PANTOPRAZOLE SODIUM 40 MG TAB PO SCH (09:56)
[2016-05-29] MEDS: VALSARTAN 160 MG TABLET (DIOVAN) PO SCH (09:56)
--- NOTE | 2016-05-29 11:18 | NUR ---
ROUNDS PT STABLE...IV PAIN MEDICATION ADMINISTERED BY COVERING NURSE EARLIER...PT DENIES PAIN AT THIS TIME...WILL CONT TO MONITOR
--- NOTE | 2016-05-29 12:00 | NUR ---
MULTIPLE EMPTY SODA (COKE) CANS AT BEDSIDE
[2016-05-29 12:28] VITALS: BP 130/79; PULSE 81; RESP 17; TEMP 98.9; O2SAT 97
--- NOTE | 2016-05-29 14:30 | NUR ---
PAIN PT C/O ABDOMINAL PAIN...COVERING NURSE WILL MEDICATE
[2016-05-29 16:08] VITALS: BP 153/98; PULSE 80; RESP 16; TEMP 98.4; O2SAT 99
[2016-05-29 16:24] VITALS: BP 122/92; PULSE 76; RESP 18; TEMP 98.6
--- NOTE | 2016-05-29 17:30 | NUR ---
D/C Patient Patient given medication reconciliation form and D/C instructions. Exit Care provided. Patient verbalized understanding. MD discussed with patient the results and treatment provided. Ambulatory with steady gait for discharge to home. Patient in stable condition, ID band removed. IV catheter removed, intact and dressing applied, no active bleeding. Rx of diovan,dietoprolol,labetalol,hydralazine,lasix,and norvasc given. Patient educated on pain management. All belongings sent with patient.PRESCRIPTION LEFT HERE...CALLED PT LEFT MESSAGE TO ECHO TECH PRESCRIPTION...WILL INFORM NIGHTCHARGE NURSE
--- NOTE | 2016-05-31 11:53 | NUR ---
Discharge Follow Up Phone Call DOUGHNUT ICER phoned patient, . Patient stated he was doing okay. He stated he asked but was told he did not have any new prescriptions. DOUGHNUT ICER explained the nurse's note indicated that he had left his rx here and a voicemail was left for him. Patient stated he would like his mother to supervisor opening and picking his prescriptions. DOUGHNUT ICER located patient's prescriptions with the charge nurse and left them at the java front end web developer for patient's mother. DOUGHNUT ICER phoned patient and he will let his mother know to supervisor opening and picking the rx. DOUGHNUT ICER asked patient if he had made his follow up appointment. Patient stated he had called but had not received a call back. DOUGHNUT ICER asked if the PCP was Dr Gretta Romero, patient said yes. DOUGHNUT ICER offered to make an appointment around patient's dialysis, so on Monday or . DOUGHNUT ICER phoned Dr Gretta Romero [phone]. It was the number for [facility]; they have no record of patient and Dr Gretta Romero is a agronomy location manager. DOUGHNUT ICER phoned patient back and left a voicemail as to the above. Patient can call to make his own appointment and choose a new PCP. DOUGHNUT ICER also left a voicemail for patient's mother, Shari [phone], about the prescriptions and follow up appointment. Social Service contact information was left for both patient and his mother. Licensed Land Surveyor will remain available upon request.
== END 2016-05-29 17:30 | disposition home or self-care (01) | DRG 682 ==
LOC: SED 20:23 → SIC 05-24 00:19 → STU 05-24 10:05 → SMU 05-28 18:52
PROVIDERS: ADMIT Family Medicine; ATTEND Family Medicine
PROC: 5A1D60Z (ICD-10-PCS; principal; 2016-05-24)
DX: I12.0 Hypertensive chronic kidney disease with stage 5 chronic kidney disease or end stage renal disease (principal); N18.6 End stage renal disease; I16.9 Hypertensive crisis, unspecified; E11.22 Type 2 diabetes mellitus with diabetic chronic kidney disease; H54.8 Legal blindness, as defined in USA; D63.1 Anemia in chronic kidney disease; E11.319 Type 2 diabetes mellitus with unspecified diabetic retinopathy without macular edema; I16.0 Hypertensive urgency; E11.43 Type 2 diabetes mellitus with diabetic autonomic (poly)neuropathy; E11.69 Type 2 diabetes mellitus with other specified complication; F12.90 Cannabis use, unspecified, uncomplicated; K31.84 Gastroparesis; H40.9 Unspecified glaucoma; G89.29 Other chronic pain; Z99.2 Dependence on renal dialysis; Z83.3 Family history of diabetes mellitus; Z87.891 Personal history of nicotine dependence; Z88.8 Allergy status to other drugs, medicaments and biological substances
CPT/HCPCS: 36415; 70450-TC; 71010; 76700-TC; 76770; 80048; 80053; 80074; 81000-TC; 82248-TC; 82570-TC; 82962; 82977-TC; 83690-TC; 83735-TC; 83880; 84100-TC; 84302-TC; 84443-TC; 84484; 85025; 87081; 90935; 90937; 93005; 93306; 96374; 96375; 96376; 99285; C9113; J0360; J1170; J1200; J1644; J1815; J2270; J2405; J2765; J3490; J7030; Q9964

== ENCOUNTER 2016-06-05 08:31 | Inpatient (IN) | payer OTHER, MEDICAID ==
[~2016-06-05] VITALS: Ht 177.8 cm; Wt 114.3 kg
[~2016-06-05 08:31] MED LIST changes: +ALPR0.2583 PO; -AMOX500T2; -CLAR500T; +CLON0.1T PO; -ERYT500T74 PO; -GLIP-201 PO; -GLIP5TAB13 PO; -GLU500 PO; -HTN MED; -HYDR-1115 PO; +HYDR-3110 PO; -METFORMIN; -METO-290 PO; -NOR10 PO; -OMEP20CA10 PO; -OMEP20CA4; -OMEP20CA4 PO; -ONDA4TAB5 PO; -VALS80TA2 PO
[2016-06-05 08:40] VITALS: BP_SYST 207
[2016-06-05] MEDS ORDERED: PROCHLORPERAZINE EDISYLATE 10 MG/2 ML VIAL IVP ONE (09:00)
[2016-06-05] MEDS ORDERED: MORPHINE SULFATE 10 MG/ML VIAL IVP ONE ×2 (09:00→10:45)
[2016-06-05] MEDS ORDERED: ONDANSETRON HCL 4 MG/2 ML VIAL IVP ONE (09:00)
[2016-06-05 09:18] LABS: BASOPHILS # (AUTO) 0.1 K/uL (0.0-0.2); BASOPHILS % (AUTO) 0.7 % (0.0-2.0); EOSINOPHILS # (AUTO) 0.1 K/uL (0.0-0.4); EOSINOPHILS % (AUTO) 0.5 % (0.0-4.0); HEMATOCRIT 30.8 % (36-54); HEMOGLOBIN 10.6 g/dL (14.0-18.0); LYMPHOCYTES # (AUTO) 2.3 K/uL (1.0-5.5); MEAN CORPUSCULAR HEMOGLOBIN 32 pg (27-31); MEAN CORPUSCULAR HGB CONC 34 % (32-36); MEAN CORPUSCULAR VOLUME 92 fL (79.0-98.0); MONOCYTES # (AUTO) 0.7 K/uL (0.0-1.0); MONOCYTES % (AUTO) 6.1 % (1.7-9.3); NEUTROPHILS # (AUTO) 8.4 K/uL (1.8-7.7); NEUTROPHILS % (AUTO) 72.7 % (40.0-70.0); PLATELET COUNT (AUTO) 301 K/uL (130-430); RED BLOOD CELL COUNT(AUTO) 3.34 MIL/uL (4.2-6.2); WHITE BLOOD COUNT (AUTO) 11.6 K/uL (4.8-10.8)
[2016-06-05 09:25] LABS: PROTHROMBIN TIME 10.4 SECS (9.5-12.5)
[2016-06-05 09:27] LABS: ALBUMIN 3.7 g/dL (3.4-4.8); TOTAL BILIRUBIN 0.3 mg/dL (0.0-1.0); TOTAL PROTEIN, SERUM 7.4 g/dL (6.4-8.3)
[2016-06-05 09:28] LABS: POTASSIUM 5.8 mmol/L (3.5-5.1)
[2016-06-05 09:31] LABS: CREATININE 11.06 mg/dL (0.55-1.30)
[2016-06-05] MEDS ORDERED: cloNIDine HCL 0.1 MG TABLET PO ONE (10:15)
[2016-06-05 10:57] LABS: BILIRUBIN,URINE NEGATIVE (NEGATIVE); BLOOD, URINE 1+ (NEGATIVE); CLARITY/URINE CLEAR (CLEAR); COLOR,URINE YELLOW (YELLOW); GLUCOSE,URINE NEGATIVE (NEGATIVE); KETONES,URINE NEGATIVE (NEGATIVE); LEUKOCYTE ESTERASE ,URINE NEGATIVE (NEGATIVE); NITRITE, URINE NEGATIVE (NEGATIVE); PH,URINE 6.5 (5.0-8.0); PROTEIN URINE 3+ (NEGATIVE); UROBILINOGEN,URINE 0.2 (0.2-1.0)
[2016-06-05 11:12] LABS: BACTERIA,URINE FEW /HPF (None Seen); RBC,URINE 0-3 /HPF (0-3); WBC,URINE 0-3 /HPF (0-3)
[2016-06-05 11:13] LABS: MUCUS,URINE None Seen /LPF (None Seen)
[2016-06-05 11:44] VITALS: BP_SYST 190
[2016-06-05] MEDS ORDERED: GABAPENTIN 300 MG CAPSULE PO PRN (11:45)
[2016-06-05] MEDS ORDERED: cloNIDine HCL 0.1 MG TABLET PO SCH ×2 (11:45→19:45)
[2016-06-05] MEDS ORDERED: LORazepam 2 MG/ML VIAL IVP PRN (11:45)
[2016-06-05] MEDS ORDERED: MAGNESIUM SULFATE 50 ML IV PRN (11:45)
[2016-06-05] MEDS ORDERED: DOCUSATE SODIUM 100 MG CAPSULE PO PRN (11:45)
[2016-06-05] MEDS ORDERED: DEXTROSE 50% JECT 50 ML DISP.SYRIN IVP PRN (11:45)
[2016-06-05] MEDS ORDERED: ACETAMINOPHEN 325 MG TABLET PO PRN (11:45)
[2016-06-05] MEDS ORDERED: ZOLPIDEM TARTRATE 5 MG TABLET PO PRN (11:45)
[2016-06-05] MEDS ORDERED: INSULIN ASPART 100 UNITS/ML, 10 ML VIAL (NovoLOG) SUBCUT PRN (11:45)
[2016-06-05] MEDS ORDERED: METHOCARBAMOL 500 MG TABLET PO PRN (11:45)
[2016-06-05] MEDS ORDERED: POTASSIUM CHLORIDE 10 MEQ TAB.PRT.SR PO PRN (11:45)
[2016-06-05] MEDS: ONDANSETRON HCL 4 MG/2 ML VIAL IVP PRN (15:20)
[2016-06-05] MEDS: MORPHINE 2 MG/ML INJ. SYRINGE IVP PRN ×2 (15:20→21:29)
[2016-06-05] MEDS: hydrALAZINE HCL 25 MG TABLET PO SCH ×2 (15:22→21:22)
[2016-06-05 16:44] VITALS: BP_SYST 164
[2016-06-05 19:30] VITALS: BP_SYST 143
[2016-06-05] MEDS: LATANOPROST 2.5 ML DROPS (XALATAN) OP SCH (21:21)
[2016-06-05] MEDS: TIMOLOL MALEATE 0.5% OPHTHALMIC DROPS 5 ML OP SCH (21:21)
[2016-06-05] MEDS: FUROSEMIDE 40 MG TABLET PO SCH (21:22)
[2016-06-05] MEDS: METOPROLOL TARTRATE 50 MG TABLET PO SCH (21:23)
[2016-06-05] MEDS: VALSARTAN 160 MG TABLET (DIOVAN) PO SCH (21:23)
[2016-06-05] MEDS: HEPARIN SODIUM,PORCINE 5000 UNITS/ML VIAL SUBCUT SCH (21:26)
[2016-06-06] VITALS (7 sets, daily range): BP systolic 140–172
[2016-06-06] MEDS: ONDANSETRON HCL 4 MG/2 ML VIAL IVP PRN ×3 (02:01→20:05)
[2016-06-06] MEDS: MORPHINE 2 MG/ML INJ. SYRINGE IVP PRN ×5 (02:02→20:10)
[2016-06-06] MEDS: cloNIDine HCL 0.2 MG TABLET PO PRN (04:43)
[2016-06-06 06:32] LABS: CALCIUM 8.2 mg/dL (8.4-11.0); POTASSIUM 5.1 mmol/L (3.5-5.1)
[2016-06-06 07:12] LABS: BASOPHILS # (AUTO) 0.1 K/uL (0.0-0.2); BASOPHILS % (AUTO) 0.8 % (0.0-2.0); EOSINOPHILS # (AUTO) 0.1 K/uL (0.0-0.4); HEMATOCRIT 28.7 % (36-54); LYMPHOCYTES # (AUTO) 2.2 K/uL (1.0-5.5); LYMPHOCYTES % (AUTO) 24.9 % (20.5-51.5); MEAN CORPUSCULAR HEMOGLOBIN 32 pg (27-31); MEAN CORPUSCULAR HGB CONC 35 % (32-36); MEAN CORPUSCULAR VOLUME 91 fL (79.0-98.0); MONOCYTES # (AUTO) 0.7 K/uL (0.0-1.0); MONOCYTES % (AUTO) 7.5 % (1.7-9.3); NEUTROPHILS # (AUTO) 5.7 K/uL (1.8-7.7); NEUTROPHILS % (AUTO) 65.8 % (40.0-70.0); PLATELET COUNT (AUTO) 260 K/uL (130-430); RED BLOOD CELL COUNT(AUTO) 3.14 MIL/uL (4.2-6.2); RED CELL DISTRIBUTION WIDTH 14.1 % (9.0-15.0); WHITE BLOOD COUNT (AUTO) 8.8 K/uL (4.8-10.8)
[2016-06-06 07:27] LABS: CREATININE 7.99 mg/dL (0.55-1.30)
[2016-06-06] MEDS: VALSARTAN 160 MG TABLET (DIOVAN) PO SCH ×2 (08:34→20:50)
[2016-06-06] MEDS: FUROSEMIDE 40 MG TABLET PO SCH ×2 (08:34→20:50)
[2016-06-06] MEDS: hydrALAZINE HCL 25 MG TABLET PO SCH ×3 (08:35→21:01)
[2016-06-06] MEDS: PANTOPRAZOLE SODIUM 40 MG TAB PO SCH (08:35)
[2016-06-06] MEDS: CINACALCET HCL 30 MG TABLET PO SCH (08:36)
[2016-06-06] MEDS: METOPROLOL TARTRATE 50 MG TABLET PO SCH ×2 (08:36→20:58)
[2016-06-06] MEDS: BRIMONIDINE TARTRATE 0.2% 5 mL EYE DROPS OP SCH ×2 (08:37→20:52)
[2016-06-06] MEDS: TIMOLOL MALEATE 0.5% OPHTHALMIC DROPS 5 ML OP SCH ×2 (08:37→20:51)
[2016-06-06] MEDS: HEPARIN SODIUM,PORCINE 5000 UNITS/ML VIAL SUBCUT SCH ×2 (08:39→20:55)
[2016-06-06] MEDS ORDERED: CINACALCET HCL 30 MG TABLET PO SCH (09:00)
[2016-06-06] MEDS: LABETALOL HCL 100 MG TABLET PO SCH (11:46)
[2016-06-06] MEDS ORDERED: DIATR MEGLU/DIATRIZ SOD 30 ML SOLUTION PO ONE (17:35)
[2016-06-06] MEDS: LATANOPROST 2.5 ML DROPS (XALATAN) OP SCH (20:51)
[2016-06-07] MEDS: MORPHINE 2 MG/ML INJ. SYRINGE IVP PRN ×5 (00:12→19:58)
[2016-06-07 03:49] LABS: BILIRUBIN,URINE NEGATIVE (NEGATIVE); CLARITY/URINE CLEAR (CLEAR); COLOR,URINE YELLOW (YELLOW); GLUCOSE,URINE TRACE (NEGATIVE); KETONES,URINE NEGATIVE (NEGATIVE); LEUKOCYTE ESTERASE ,URINE NEGATIVE (NEGATIVE); NITRITE, URINE NEGATIVE (NEGATIVE); PH,URINE 7.5 (5.0-8.0); PROTEIN URINE 3+ (NEGATIVE); UROBILINOGEN,URINE 0.2 (0.2-1.0)
[2016-06-07 03:59] LABS: BLOOD, URINE TRACE (NEGATIVE)
[2016-06-07 04:46] LABS: BACTERIA,URINE FEW /HPF (None Seen); MUCUS,URINE None Seen /LPF (None Seen)
[2016-06-07] MEDS: cloNIDine HCL 0.2 MG TABLET PO PRN (06:06)
[2016-06-07 06:07] VITALS: BP_SYST 166
[2016-06-07 06:56] LABS: BASOPHILS # (AUTO) 0.1 K/uL (0.0-0.2); BASOPHILS % (AUTO) 0.9 % (0.0-2.0); EOSINOPHILS # (AUTO) 0.1 K/uL (0.0-0.4); EOSINOPHILS % (AUTO) 1.5 % (0.0-4.0); HEMATOCRIT 28.9 % (36-54); LYMPHOCYTES # (AUTO) 2.6 K/uL (1.0-5.5); LYMPHOCYTES % (AUTO) 34.4 % (20.5-51.5); MEAN CORPUSCULAR HEMOGLOBIN 32 pg (27-31); MEAN CORPUSCULAR HGB CONC 35 % (32-36); MEAN CORPUSCULAR VOLUME 92 fL (79.0-98.0); MONOCYTES # (AUTO) 0.6 K/uL (0.0-1.0); MONOCYTES % (AUTO) 8.3 % (1.7-9.3); NEUTROPHILS # (AUTO) 4.3 K/uL (1.8-7.7); NEUTROPHILS % (AUTO) 54.9 % (40.0-70.0); PLATELET COUNT (AUTO) 244 K/uL (130-430); RED BLOOD CELL COUNT(AUTO) 3.14 MIL/uL (4.2-6.2); RED CELL DISTRIBUTION WIDTH 14.1 % (9.0-15.0); WHITE BLOOD COUNT (AUTO) 7.7 K/uL (4.8-10.8)
[2016-06-07 07:31] LABS: CALCIUM 7.4 mg/dL (8.4-11.0); POTASSIUM 5.4 mmol/L (3.5-5.1)
[2016-06-07 07:57] LABS: CREATININE 9.85 mg/dL (0.55-1.30)
[2016-06-07] MEDS ORDERED: DIATR MEGLU/DIATRIZ SOD 30 ML SOLUTION PO ONE (08:01)
[2016-06-07] MEDS ORDERED: IOHEXOL 0 ML IV ONE (08:02)
[2016-06-07 08:33] VITALS: BP_SYST 149
[2016-06-07] MEDS: TIMOLOL MALEATE 0.5% OPHTHALMIC DROPS 5 ML OP SCH ×2 (09:00→21:14)
[2016-06-07] MEDS: CINACALCET HCL 30 MG TABLET PO SCH (09:41)
[2016-06-07] MEDS: hydrALAZINE HCL 25 MG TABLET PO SCH ×3 (09:41→21:12)
[2016-06-07] MEDS: HEPARIN SODIUM,PORCINE 5000 UNITS/ML VIAL SUBCUT SCH ×2 (09:41→21:25)
[2016-06-07] MEDS: FUROSEMIDE 40 MG TABLET PO SCH ×2 (09:42→21:12)
[2016-06-07] MEDS: VALSARTAN 160 MG TABLET (DIOVAN) PO SCH ×2 (09:42→21:12)
[2016-06-07] MEDS: PANTOPRAZOLE SODIUM 40 MG TAB PO SCH (09:42)
[2016-06-07] MEDS: METOPROLOL TARTRATE 50 MG TABLET PO SCH ×2 (09:43→21:13)
[2016-06-07] MEDS: LABETALOL HCL 100 MG TABLET PO SCH (09:44)
[2016-06-07] MEDS ORDERED: IOHEXOL 100 ML IV ONE (10:25)
[2016-06-07 11:07] LABS: HEPATITIS A AB, IgM Negative (Negative); HEPATITIS B CORE AB, IgM Negative (Negative); HEPATITIS B SURFACE AG Negative (Negative)
[2016-06-07] MEDS: BRIMONIDINE TARTRATE 0.2% 5 mL EYE DROPS OP SCH ×2 (11:40→21:14)
[2016-06-07 12:22] VITALS: BP_SYST 160
[2016-06-07] MEDS: ONDANSETRON HCL 4 MG/2 ML VIAL IVP PRN (13:46)
[2016-06-07 16:50] VITALS: BP_SYST 169
[2016-06-07 19:30] VITALS: BP_SYST 130
[2016-06-07] MEDS: LATANOPROST 2.5 ML DROPS (XALATAN) OP SCH (21:14)
[2016-06-08 00:10] VITALS: BP_SYST 160
[2016-06-08] MEDS: MORPHINE 2 MG/ML INJ. SYRINGE IVP PRN ×3 (00:18→09:42)
[2016-06-08] MEDS: ONDANSETRON HCL 4 MG/2 ML VIAL IVP PRN ×2 (00:21→06:44)
[2016-06-08 06:34] LABS: CALCIUM 8.9 mg/dL (8.4-11.0); CREATININE 7.19 mg/dL (0.55-1.30); POTASSIUM 4.7 mmol/L (3.5-5.1)
[2016-06-08 06:59] LABS: BASOPHILS % (AUTO) 0.4 % (0.0-2.0); EOSINOPHILS # (AUTO) 0.1 K/uL (0.0-0.4); EOSINOPHILS % (AUTO) 0.9 % (0.0-4.0); HEMATOCRIT 31.2 % (36-54); LYMPHOCYTES # (AUTO) 1.5 K/uL (1.0-5.5); LYMPHOCYTES % (AUTO) 17.7 % (20.5-51.5); MEAN CORPUSCULAR HEMOGLOBIN 32 pg (27-31); MEAN CORPUSCULAR HGB CONC 35 % (32-36); MEAN CORPUSCULAR VOLUME 92 fL (79.0-98.0); MONOCYTES # (AUTO) 0.6 K/uL (0.0-1.0); MONOCYTES % (AUTO) 7.2 % (1.7-9.3); NEUTROPHILS # (AUTO) 6.1 K/uL (1.8-7.7); NEUTROPHILS % (AUTO) 73.8 % (40.0-70.0); PLATELET COUNT (AUTO) 251 K/uL (130-430); RED BLOOD CELL COUNT(AUTO) 3.41 MIL/uL (4.2-6.2); RED CELL DISTRIBUTION WIDTH 13.6 % (9.0-15.0); WHITE BLOOD COUNT (AUTO) 8.3 K/uL (4.8-10.8)
[2016-06-08] MEDS: CINACALCET HCL 30 MG TABLET PO SCH (09:45)
[2016-06-08] MEDS: PANTOPRAZOLE SODIUM 40 MG TAB PO SCH (09:45)
[2016-06-08] MEDS: TIMOLOL MALEATE 0.5% OPHTHALMIC DROPS 5 ML OP SCH (09:46)
[2016-06-08] MEDS: BRIMONIDINE TARTRATE 0.2% 5 mL EYE DROPS OP SCH (09:46)
[2016-06-08] MEDS: LABETALOL HCL 100 MG TABLET PO SCH (09:48)
[2016-06-08] MEDS: HEPARIN SODIUM,PORCINE 5000 UNITS/ML VIAL SUBCUT SCH (09:48)
[2016-06-08] MEDS: FUROSEMIDE 40 MG TABLET PO SCH (09:49)
[2016-06-08] MEDS: VALSARTAN 160 MG TABLET (DIOVAN) PO SCH (09:49)
[2016-06-08] MEDS: hydrALAZINE HCL 25 MG TABLET PO SCH ×2 (09:49→16:16)
[2016-06-08] MEDS: METOPROLOL TARTRATE 50 MG TABLET PO SCH (09:50)
[2016-06-08] MEDS ORDERED: CAT.2 PO (11:21)
[2016-06-08] MEDS ORDERED: HYDROmorphone 2 MG/ML VIAL IVP ONE (11:30)
[2016-06-08 12:24] VITALS: BP_SYST 171
[2016-06-08 12:59] VITALS: BP_SYST 171
[2016-06-08 14:48] VITALS: BP_SYST 190
[2016-06-08] MEDS: cloNIDine HCL 0.2 MG TABLET PO PRN (14:57)
[2016-06-08 16:46] VITALS: BP_SYST 170
== END 2016-06-08 18:00 | disposition home or self-care (01) | DRG 682 ==
LOC: SED 08:31 → STU 11:15
PROVIDERS: ADMIT General Practice; ATTEND General Practice
PROC: 5A1D60Z (ICD-10-PCS; principal; 2016-06-05)
DX: I12.0 Hypertensive chronic kidney disease with stage 5 chronic kidney disease or end stage renal disease (principal); N17.0 Acute kidney failure with tubular necrosis; N18.6 End stage renal disease; I16.1 Hypertensive emergency; F11.20 Opioid dependence, uncomplicated; I16.0 Hypertensive urgency; E11.22 Type 2 diabetes mellitus with diabetic chronic kidney disease; E83.51 Hypocalcemia; E87.5 Hyperkalemia; E11.319 Type 2 diabetes mellitus with unspecified diabetic retinopathy without macular edema; E11.43 Type 2 diabetes mellitus with diabetic autonomic (poly)neuropathy; M62.838 Other muscle spasm; G43.909 Migraine, unspecified, not intractable, without status migrainosus; G89.29 Other chronic pain; D63.1 Anemia in chronic kidney disease; H54.8 Legal blindness, as defined in USA; K31.84 Gastroparesis; Z99.2 Dependence on renal dialysis; Z88.8 Allergy status to other drugs, medicaments and biological substances; Z79.899 Other long term (current) drug therapy
CPT/HCPCS: 36415; 70450-TC; 76770; 80048; 80053; 80074; 81000-TC; 82150-TC; 82962; 83605; 83690-TC; 83735-TC; 85025; 85610-TC; 85730-TC; 86706; 87040-TC; 87081; 90935; 90937; 96374; 96375; 96376; 99291; J0780; J1170; J1644; J1815; J2270; J2405; J7030; Q9964; Q9967

== ENCOUNTER 2016-07-27 11:51 | Inpatient (IN) | payer OTHER, MEDICAID ==
[~2016-07-27] VITALS: Ht 177.8 cm; Wt 101.6 kg
[~2016-07-27 11:51] MED LIST changes: -AMLO2.5T2 PO; +CAT.2 PO; -CLON0.1T PO; -HYDR-1189 PO
[2016-07-27 11:53] VITALS: BP_SYST 208
[2016-07-27] MEDS ORDERED: LABETALOL 100 MG/ 20ML VIAL IVP ONE ×2 (13:15→14:45)
[2016-07-27] MEDS ORDERED: LORazepam 2 MG/ML VIAL (FOR ER USE) IVP ONE ×2 (13:15→14:45)
[2016-07-27 15:45] LABS: BASOPHILS # (AUTO) 0.1 K/uL (0.0-0.2); BASOPHILS % (AUTO) 0.6 % (0.0-2.0); EOSINOPHILS # (AUTO) 0.1 K/uL (0.0-0.4); EOSINOPHILS % (AUTO) 0.8 % (0.0-4.0); HEMATOCRIT 31.4 % (36-54); HEMOGLOBIN 10.4 g/dL (14.0-18.0); LYMPHOCYTES # (AUTO) 2.8 K/uL (1.0-5.5); LYMPHOCYTES % (AUTO) 30.3 % (20.5-51.5); MEAN CORPUSCULAR HEMOGLOBIN 31 pg (27-31); MEAN CORPUSCULAR HGB CONC 33 % (32-36); MEAN CORPUSCULAR VOLUME 93 fL (79.0-98.0); MONOCYTES # (AUTO) 0.6 K/uL (0.0-1.0); MONOCYTES % (AUTO) 6.5 % (1.7-9.3); NEUTROPHILS # (AUTO) 5.6 K/uL (1.8-7.7); NEUTROPHILS % (AUTO) 61.8 % (40.0-70.0); PLATELET COUNT (AUTO) 199 K/uL (130-430); RED CELL DISTRIBUTION WIDTH 13.6 % (9.0-15.0); WHITE BLOOD COUNT (AUTO) 9.2 K/uL (4.8-10.8)
[2016-07-27 15:52] LABS: CALCIUM 9.1 mg/dL (8.4-11.0); CREATININE 5.85 mg/dL (0.55-1.30); POTASSIUM 4.1 mmol/L (3.5-5.1)
[2016-07-27 15:55] LABS: INR 0.9 (0.80-1.20); PROTHROMBIN TIME 10.1 SECS (9.5-12.5)
[2016-07-27 15:57] LABS: ALBUMIN 3.3 g/dL (3.4-4.8); TOTAL BILIRUBIN 0.4 mg/dL (0.0-1.0); TOTAL PROTEIN, SERUM 6.7 g/dL (6.4-8.3)
[2016-07-27 16:46] VITALS: BP_SYST 185
[2016-07-27 18:06] VITALS: BP_SYST 231
[2016-07-27] MEDS ORDERED: ALPRAZolam 0.25 MG TABLET PO PRN (18:15)
[2016-07-27] MEDS ORDERED: cloNIDine HCL 0.2 MG TABLET PO ONE (18:15)
[2016-07-27] MEDS ORDERED: DEXTROSE 50% JECT 50 ML DISP.SYRIN IVP PRN (18:15)
[2016-07-27 19:57] VITALS: BP_SYST 192
[2016-07-27] MEDS: VALSARTAN 160 MG TABLET (DIOVAN) PO SCH (20:08)
[2016-07-27] MEDS: FUROSEMIDE 40 MG TABLET PO SCH (20:09)
[2016-07-27] MEDS: hydrALAZINE HCL 25 MG TABLET PO SCH (20:09)
[2016-07-27] MEDS: GABAPENTIN 300 MG CAPSULE PO SCH (20:09)
[2016-07-27] MEDS: BRIMONIDINE TARTRATE 0.2% 5 mL EYE DROPS OP SCH (20:13)
[2016-07-27] MEDS ORDERED: METOPROLOL TARTRATE 50 MG TABLET PO SCH (21:00)
[2016-07-27] MEDS: cloNIDine HCL 0.2 MG TABLET PO SCH (21:12)
[2016-07-27] MEDS: LORazepam 2 MG/ML VIAL IVP PRN (21:13)
[2016-07-28] VITALS (7 sets, daily range): BP systolic 112–198
[2016-07-28] MEDS ORDERED: hydrALAZINE HCL 20 MG/ML VIAL IVP PRN (00:30)
[2016-07-28] MEDS: MORPHINE 2 MG/ML INJ. SYRINGE IVP PRN ×3 (00:35→23:44)
[2016-07-28] MEDS: cloNIDine HCL 0.2 MG TABLET PO SCH ×3 (06:03→21:14)
[2016-07-28] MEDS: FUROSEMIDE 40 MG TABLET PO SCH ×2 (08:47→21:15)
[2016-07-28] MEDS: CINACALCET HCL 30 MG TABLET PO SCH (08:48)
[2016-07-28] MEDS: hydrALAZINE HCL 25 MG TABLET PO SCH ×3 (08:49→21:16)
[2016-07-28] MEDS: PANTOPRAZOLE SODIUM 40 MG TAB PO SCH (08:49)
[2016-07-28] MEDS: VALSARTAN 160 MG TABLET (DIOVAN) PO SCH ×2 (08:49→21:14)
[2016-07-28] MEDS: GABAPENTIN 300 MG CAPSULE PO SCH ×3 (08:50→21:14)
[2016-07-28] MEDS: BRIMONIDINE TARTRATE 0.2% 5 mL EYE DROPS OP SCH ×2 (08:50→21:16)
[2016-07-28] MEDS: LABETALOL HCL 100 MG TABLET PO SCH (08:50)
[2016-07-28] MEDS ORDERED: CINACALCET HCL 30 MG TABLET PO SCH (09:00)
[2016-07-28] MEDS: INSULIN REGULAR, HUMAN 100 UNITS/ML, 10 ML VIAL (novoLIN R) SUBCUT PRN ×2 (13:00→23:39)
[2016-07-29] VITALS (7 sets, daily range): BP systolic 122–166
[2016-07-29] MEDS: cloNIDine HCL 0.2 MG TABLET PO SCH ×3 (05:13→22:17)
[2016-07-29] MEDS: BRIMONIDINE TARTRATE 0.2% 5 mL EYE DROPS OP SCH ×2 (09:13→20:54)
[2016-07-29] MEDS: hydrALAZINE HCL 25 MG TABLET PO SCH ×3 (09:14→20:55)
[2016-07-29] MEDS: CINACALCET HCL 30 MG TABLET PO SCH (09:14)
[2016-07-29] MEDS: GABAPENTIN 300 MG CAPSULE PO SCH ×3 (09:15→20:53)
[2016-07-29] MEDS: VALSARTAN 160 MG TABLET (DIOVAN) PO SCH ×2 (09:15→20:53)
[2016-07-29] MEDS: FUROSEMIDE 40 MG TABLET PO SCH ×2 (09:15→20:56)
[2016-07-29] MEDS: PANTOPRAZOLE SODIUM 40 MG TAB PO SCH (09:15)
[2016-07-29] MEDS: LABETALOL HCL 100 MG TABLET PO SCH (09:16)
[2016-07-29] MEDS ORDERED: SUCRALFATE 1 GM TABLET PO ONE (10:00)
[2016-07-29] MEDS: MORPHINE 2 MG/ML INJ. SYRINGE IVP PRN ×2 (10:45→23:51)
[2016-07-29] MEDS: LORazepam 2 MG/ML VIAL IVP PRN (10:46)
[2016-07-29] MEDS: SUCRALFATE 1 GM TABLET PO SCH (17:00)
[2016-07-30 00:08] VITALS: BP_SYST 139
[2016-07-30 04:38] VITALS: BP_SYST 146
[2016-07-30] MEDS: cloNIDine HCL 0.2 MG TABLET PO SCH (06:32)
[2016-07-30] MEDS: MORPHINE 2 MG/ML INJ. SYRINGE IVP PRN (06:59)
[2016-07-30] MEDS: SUCRALFATE 1 GM TABLET PO SCH (07:02)
[2016-07-30 08:00] VITALS: BP_SYST 139
[2016-07-30 08:02] LABS: CALCIUM 7.9 mg/dL (8.4-11.0); CREATININE 6.38 mg/dL (0.55-1.30); POTASSIUM 4.4 mmol/L (3.5-5.1)
[2016-07-30] MEDS: VALSARTAN 160 MG TABLET (DIOVAN) PO SCH (08:54)
[2016-07-30] MEDS: FUROSEMIDE 40 MG TABLET PO SCH (08:54)
[2016-07-30] MEDS: CINACALCET HCL 30 MG TABLET PO SCH (08:55)
[2016-07-30] MEDS: PANTOPRAZOLE SODIUM 40 MG TAB PO SCH (08:55)
[2016-07-30] MEDS: LABETALOL HCL 100 MG TABLET PO SCH (08:55)
[2016-07-30] MEDS: hydrALAZINE HCL 25 MG TABLET PO SCH (08:56)
[2016-07-30] MEDS: BRIMONIDINE TARTRATE 0.2% 5 mL EYE DROPS OP SCH (08:56)
[2016-07-30] MEDS: GABAPENTIN 300 MG CAPSULE PO SCH (08:56)
[2016-07-30 10:12] VITALS: BP_SYST 132
[2016-07-30 12:13] VITALS: BP_SYST 124
== END 2016-07-30 13:10 | disposition home or self-care (01) | DRG 682 ==
LOC: SED 11:51 → STU 16:09 → SMU 07-28 10:07
PROVIDERS: ADMIT Internal Medicine Hospice and Palliative Medicine; ATTEND Internal Medicine Hospice and Palliative Medicine
PROC: 5A1D00Z (ICD-10-PCS; principal; 2016-07-29)
DX: I12.0 Hypertensive chronic kidney disease with stage 5 chronic kidney disease or end stage renal disease (principal); N18.6 End stage renal disease; I16.1 Hypertensive emergency; N25.81 Secondary hyperparathyroidism of renal origin; E11.22 Type 2 diabetes mellitus with diabetic chronic kidney disease; D63.1 Anemia in chronic kidney disease; F41.1 Generalized anxiety disorder; E11.43 Type 2 diabetes mellitus with diabetic autonomic (poly)neuropathy; K31.84 Gastroparesis; R00.2 Palpitations; Z99.2 Dependence on renal dialysis; Z79.899 Other long term (current) drug therapy; Z88.8 Allergy status to other drugs, medicaments and biological substances
CPT/HCPCS: 36415; 71010; 80048; 80053; 82962; 83880; 85025; 85610-TC; 85730-TC; 87081; 90935; 93005; 96374; 96375; 96376; 99285; J0360; J1815; J2060; J2270; J3490

== ENCOUNTER 2016-08-12 08:54 | Inpatient (IN) | payer OTHER, MEDICAID ==
[~2016-08-12] VITALS: Ht 177.8 cm; Wt 107.3 kg
[2016-08-12 01:20] VITALS: BP_SYST 144
--- NOTE | 2016-08-12 08:54 | NUR ---
BROUGHT BACK TO BED #3 AND TRIAGED. REPORT GIVEN TO JEROSN
[2016-08-12 08:55] VITALS: BP_SYST 142
[2016-08-12] MEDS ORDERED: NACL 0.9% 1,000 ML IV ONE (09:09)
[2016-08-12] MEDS ORDERED: HYDROmorphone 1 MG INJ. 1 MG/ML AMPUL IV ONE (09:15)
[2016-08-12] MEDS ORDERED: ONDANSETRON HCL 4 MG/2 ML VIAL IVP ONE (09:15)
--- NOTE | 2016-08-12 09:16 | NUR ---
# 18 gauge angiocath placed to RFA. Use of asceptic technique. Opsite placed over site. Blood return noted. Blood for lab drawn from site. Flushed with 10 cc of normal saline. No evidence of infiltration noted. Patient tolerated well.
--- NOTE | 2016-08-12 09:16 | NUR ---
ER at bedside examining patient.
--- NOTE | 2016-08-12 09:17 | NUR ---
pt c/o abdominal pain,nausea since 5am this morning, pt is awake,alert x4,abdomen soft,tender to epigastric and LUQ,wilmer diarrhea and constipation. pt has permacath to right upper chest,dressing intact. dialysis MWF, last dialyzed on , due to today. pt both eye legal blinds.
[2016-08-12 09:29] LABS: BASOPHILS # (AUTO) 0.1 K/uL (0.0-0.2); BASOPHILS % (AUTO) 0.7 % (0.0-2.0); EOSINOPHILS # (AUTO) 0.1 K/uL (0.0-0.4); EOSINOPHILS % (AUTO) 1.2 % (0.0-4.0); HEMATOCRIT 28.8 % (36-54); HEMOGLOBIN 9.7 g/dL (14.0-18.0); MEAN CORPUSCULAR HEMOGLOBIN 31 pg (27-31); MEAN CORPUSCULAR HGB CONC 34 % (32-36); MEAN CORPUSCULAR VOLUME 92 fL (79.0-98.0); MONOCYTES # (AUTO) 0.8 K/uL (0.0-1.0); MONOCYTES % (AUTO) 8.3 % (1.7-9.3); NEUTROPHILS # (AUTO) 5.4 K/uL (1.8-7.7); NEUTROPHILS % (AUTO) 57.8 % (40.0-70.0); PLATELET COUNT (AUTO) 255 K/uL (130-430); RED BLOOD CELL COUNT(AUTO) 3.12 MIL/uL (4.2-6.2); RED CELL DISTRIBUTION WIDTH 13.4 % (9.0-15.0); WHITE BLOOD COUNT (AUTO) 9.4 K/uL (4.8-10.8)
[2016-08-12 09:40] LABS: CALCIUM 9.5 mg/dL (8.4-11.0); POTASSIUM 4.4 mmol/L (3.5-5.1)
[2016-08-12 09:44] LABS: CREATININE 8.11 mg/dL (0.55-1.30)
[2016-08-12 09:48] LABS: TOTAL BILIRUBIN 0.4 mg/dL (0.0-1.0); TOTAL PROTEIN, SERUM 7.3 g/dL (6.4-8.3)
[2016-08-12 09:49] LABS: ALBUMIN 3.7 g/dL (3.4-4.8)
--- NOTE | 2016-08-12 10:30 | NUR ---
Dr Dennis ordered a stat consult with Dr Clark, who was called and spoke to Jenna about the consult.
--- NOTE | 2016-08-12 10:45 | NUR ---
Patient will be admitted to care of . Admitted to tele unit. Will go to room 135 . Belongings list completed. Summary report printed. Report will be given at bedside.
--- NOTE | 2016-08-12 10:58 | NUR ---
ADMIT NOTE Received pt from ER to the floor with a diagnosis of ACUTE RENAL FAILURE. Admission process initiated. patient oriented to pain management, safety and call light-teach back done.
[2016-08-12 11:10] VITALS: BP_SYST 109
--- NOTE | 2016-08-12 11:15 | NUR ---
Admission assessment Received Pt awake, alert, orientated x4. Pt breathing even and unlabored. O2 sat @ 99% room air. Pt c/o upper gastric pain 6/10, sharp aching pain. Abd auscultated, bowel sounds noted throughout all quadrant. Abd soft and non distended. Abd tender to deep palpation. Reposition Pt for comfort measures. Lung sounds auscultated, lung sounds clear throughout all lobes. IV access noted right FA 18G HL, patent with blood return. No s/s of infiltration or inflammation noted. Pt is blind bilateral eyes. Reorientated Pt to room and Pt's belongings. Assessment done, plan of care discussed with Pt, call light within easy reach, bed at lowest position, will continue to monitor.
--- NOTE | 2016-08-12 12:51 | NUR ---
MD rounds Pt asleep. Chest rise and fall noted. Pt easily aroused by voice. Dr. Dennis at the bedside discussing plan of care. Informed pt to push the call light if Pt needs assistance with anything. Pt verbalized understanding. Call light within easy reach, bed at lowest position, will continue to monitor.
[2016-08-12] MEDS ORDERED: METHOCARBAMOL 500 MG TABLET PO PRN (13:00)
[2016-08-12] MEDS ORDERED: ACETAMINOPHEN 325 MG TABLET PO PRN (13:00)
[2016-08-12] MEDS ORDERED: BRIMONIDINE TARTRATE 0.2% 5 mL EYE DROPS OP PRN (13:00)
[2016-08-12] MEDS ORDERED: DEXTROSE 50% JECT 50 ML DISP.SYRIN IVP PRN (13:00)
[2016-08-12] MEDS ORDERED: ALPRAZolam 0.25 MG TABLET PO PRN (13:00)
[2016-08-12] MEDS: ONDANSETRON HCL 4 MG/2 ML VIAL IVP PRN (13:27)
[2016-08-12] MEDS: D5NS 1,000 ML IV SCH (13:27)
[2016-08-12] MEDS: cloNIDine HCL 0.2 MG TABLET PO SCH ×2 (13:29→22:15)
[2016-08-12] MEDS: HYDROmorphone 1 MG INJ. 1 MG/ML AMPUL IVP PRN ×2 (13:29→23:24)
[2016-08-12] MEDS: hydrALAZINE HCL 25 MG TABLET PO SCH ×2 (13:30→22:17)
--- NOTE | 2016-08-12 14:31 | NUR ---
CPS TEAM LEAD CONSULT SPOKE TO ERLINDA MADE AWARE OF CONSULT WITH DR PINEDA.
--- NOTE | 2016-08-12 14:41 | NUR ---
PATIENT RESTING: Patient resting quietly. Chest rise and fall noted. No acute distress noted. Vital signs within normal range. Call light within easy reach, bed at lowest position, will continue to monitor.
--- NOTE | 2016-08-12 15:20 | NUR ---
rounds Dr. Clark at the bedside discussing plan of care. Currently waiting new orders.
--- NOTE | 2016-08-12 15:32 | NUR ---
Hemodialysis Pt awake. Pt breathing even and unlabored. Pt denies pain, SOB, or discomfort. syrup maker cook at the bedside performing dialysis. Hemodialysis consent signed and in the patient's chart. Informed Pt to push the call light if pt needs assistance with anything. Pt verbalized understanding. Call light within easy reach, bed at lowest position, will continue to monitor.
[2016-08-12 15:33] VITALS: BP_SYST 125
[2016-08-12] MEDS: METOCLOPRAMIDE HCL 10 MG/2 ML VIAL IVP SCH (18:21)
--- NOTE | 2016-08-12 18:45 | NUR ---
Hemodialysis Hemodialysis completed. Dialysis removed 2L output.
[2016-08-12] MEDS: HYDROmorphone 2 MG/ML VIAL IVP PRN (19:01)
--- NOTE | 2016-08-12 19:05 | NUR ---
Pt transported off the unit to OR for perm a cath removal. Pt c/o abd. pain 11/27, Pain medication was administered. OR team at bedside. All consent for surgical procedure signed and in Pt's chart. Will endorse all care to oncoming nurse.
[2016-08-12] MEDS ORDERED: PROPOFOL 200MG/ 20ML VIAL (DIPRIVAN) IV ONE (19:10)
[2016-08-12] MEDS ORDERED: LIDOCAINE/EPI 1% 1:100000 20 ML VIAL INJ ONE (19:10)
--- NOTE | 2016-08-12 20:30 | NUR ---
Pt return fr OR Pt return from OR with mother at bedside. Pt is drowsy but responsive to verbal stimuli. V/S are wnl. Noted dressing to RU chest. No bleeding and no discharge noted. Will cont to monitor.
[2016-08-12 20:45] VITALS: BP_SYST 214
[2016-08-12] MEDS: BRIMONIDINE TARTRATE 0.2% 5 mL EYE DROPS OP SCH (21:00)
--- NOTE | 2016-08-12 22:20 | NUR ---
paged paged for Dr Dennis, dialed . s/w Shweta.
--- NOTE | 2016-08-12 22:30 | NUR ---
Paged dr Dennis Paged Dr Dennis for B/P 214/123, awaiting for call back. Pt is a/a/o, asymptomatic.
[2016-08-12] MEDS: VALSARTAN 160 MG TABLET (DIOVAN) PO SCH (23:14)
[2016-08-12] MEDS: FUROSEMIDE 40 MG TABLET PO SCH (23:15)
[2016-08-12] MEDS: METOPROLOL TARTRATE 50 MG TABLET PO SCH (23:15)
--- NOTE | 2016-08-12 23:16 | NUR ---
Manual barcode Blood pressure meds for 2100 did not register during initial scan. Manual barcode was use to re-enter or scan again.Labels was thrown already.
[2016-08-13] MEDS: METOCLOPRAMIDE HCL 10 MG/2 ML VIAL IVP SCH ×5 (00:16→23:14)
[2016-08-13] MEDS: INSULIN REGULAR, HUMAN 100 UNITS/ML, 10 ML VIAL (novoLIN R) SUBCUT PRN ×3 (00:23→18:43)
--- NOTE | 2016-08-13 00:42 | NUR ---
paged paged for Dr Krishnamurthy [facility] [address] [facility]. dialed [phone]. s/w Exchange. Dr Krishnamurthy is on-call for Dr Clark.
[2016-08-13] MEDS ORDERED: hydrALAZINE HCL 20 MG/ML VIAL IVP PRN ×2 (01:00)
--- NOTE | 2016-08-13 01:02 | NUR ---
Spoke with Dr Raghu Garland and spoke with Dr Krishnamurthy and notified her about pt's b/p at 214/123, 209/133. The good doctor ordered Hydralazine PRN. Order noted and carried out.
[2016-08-13] MEDS: HYDROmorphone 1 MG INJ. 1 MG/ML AMPUL IVP PRN ×4 (03:42→18:29)
[2016-08-13] MEDS: D5NS 1,000 ML IV SCH (03:48)
[2016-08-13] MEDS: hydrALAZINE HCL 25 MG TABLET PO SCH ×3 (05:02→23:23)
[2016-08-13] MEDS: cloNIDine HCL 0.2 MG TABLET PO SCH ×3 (05:02→23:22)
--- NOTE | 2016-08-13 07:02 | NUR ---
CLOSING NOTES PATIENT IS RESTING AT THIS TIME. NO S/S OF ANY DISTRESS NOTED.V/S ARE WNL. ALL NEEDS MET AND ANTICIPATED BY NOC NURSES. BED IN LOW POSITION WITH CALL LIGHT WITHIN REACH. WILL ENDORSED
[2016-08-13 07:53] LABS: BASOPHILS # (AUTO) 0.1 K/uL (0.0-0.2); BASOPHILS % (AUTO) 0.6 % (0.0-2.0); EOSINOPHILS # (AUTO) 0.1 K/uL (0.0-0.4); EOSINOPHILS % (AUTO) 0.8 % (0.0-4.0); HEMATOCRIT 26.5 % (36-54); HEMOGLOBIN 9.1 g/dL (14.0-18.0); LYMPHOCYTES # (AUTO) 2.7 K/uL (1.0-5.5); LYMPHOCYTES % (AUTO) 27.5 % (20.5-51.5); MEAN CORPUSCULAR HEMOGLOBIN 31 pg (27-31); MEAN CORPUSCULAR HGB CONC 34 % (32-36); MEAN CORPUSCULAR VOLUME 91 fL (79.0-98.0); MONOCYTES # (AUTO) 0.7 K/uL (0.0-1.0); MONOCYTES % (AUTO) 7.3 % (1.7-9.3); NEUTROPHILS # (AUTO) 6.1 K/uL (1.8-7.7); NEUTROPHILS % (AUTO) 63.8 % (40.0-70.0); PLATELET COUNT (AUTO) 247 K/uL (130-430); WHITE BLOOD COUNT (AUTO) 9.7 K/uL (4.8-10.8)
[2016-08-13 08:20] LABS: ALBUMIN 3.3 g/dL (3.4-4.8); CALCIUM 9.2 mg/dL (8.4-11.0); CREATININE 6.14 mg/dL (0.55-1.30); POTASSIUM 4.5 mmol/L (3.5-5.1); TOTAL BILIRUBIN 0.5 mg/dL (0.0-1.0); TOTAL PROTEIN, SERUM 6.7 g/dL (6.4-8.3)
[2016-08-13] MEDS: VALSARTAN 160 MG TABLET (DIOVAN) PO SCH ×2 (08:38→21:33)
[2016-08-13] MEDS: CINACALCET HCL 30 MG TABLET PO SCH (08:38)
[2016-08-13] MEDS: GABAPENTIN 300 MG CAPSULE PO SCH ×3 (08:38→21:34)
[2016-08-13] MEDS: PANTOPRAZOLE SODIUM 40 MG TAB PO SCH (08:39)
[2016-08-13] MEDS: METOPROLOL TARTRATE 50 MG TABLET PO SCH ×2 (08:39→21:34)
[2016-08-13] MEDS: FUROSEMIDE 40 MG TABLET PO SCH ×2 (08:39→21:34)
[2016-08-13 08:43] VITALS: BP_SYST 123
[2016-08-13] MEDS ORDERED: CINACALCET HCL 30 MG TABLET PO SCH (09:00)
[2016-08-13] MEDS ORDERED: LABETALOL HCL 100 MG TABLET PO SCH (09:00)
--- NOTE | 2016-08-13 09:12 | NUR ---
Rounds to patient with new intravenous infusion of dilauded per orders. Says he must wait 48 hours between removal and insertion of new catheter for dialysis per physician.
[2016-08-13] MEDS: ONDANSETRON HCL 4 MG/2 ML VIAL IVP PRN (09:58)
[2016-08-13] MEDS: BRIMONIDINE TARTRATE 0.2% 5 mL EYE DROPS OP SCH ×2 (10:02→21:35)
--- NOTE | 2016-08-13 10:32 | NUR ---
Rounds to patient. Needs met at this time. Request for nausea medication given. Doctor Atil rounds. Request to have psych eval for depression rule out bipolar.
--- NOTE | 2016-08-13 12:06 | NUR ---
MANIPULATIVE THERAPY SPECIALIST rounds to pass tray for lunch. Patient requests dressing change at site of rebel catheter. Site intact, clean and dry. Will verify with provider. Patient blood sugar needing small amount of insulin coverage, 2units . Given reglan scheduled for nausea.
[2016-08-13 14:18] VITALS: BP_SYST 128
--- NOTE | 2016-08-13 14:20 | NUR ---
Rounds to patient. Needs met at this time. Patient given blood pressure meds as scheduled. Responding nicely to therapy 128/78 and pulse 82.
[2016-08-13 16:30] VITALS: BP_SYST 132
--- NOTE | 2016-08-13 19:15 | NUR ---
Handoff report to noc nurse. Patient request for sign behind head of bed for blindness honored. Pending dialysis access. 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 Doctor Raghu d/c fears regarding this. Patient aware IV fluids also d/c by MD. Blood glucose coverage for 181 mg/dL with 2 units.
--- NOTE | 2016-08-13 19:30 | NUR ---
PM ASSESSMENT PT. A/OX4, PT. IS LEGALLY BLIND, VITAL SIGNS STABLE, NO DISTRESS NOTED, DENIES PAIN, NOTED WITH R. CHEST PERMACATH, UPDATED WITH PLAN OF CARE, ENCOURAGED PT. TO USE CALL LIGHT FOR ASSISTANCE, CALL LIGHT WITHIN REACH, WILL CONTINUE TO MONITOR.
[2016-08-13 20:30] VITALS: BP_SYST 107
--- NOTE | 2016-08-13 21:30 | NUR ---
RN ROUNDS PT. RESTING QUIETLY, VITAL SIGNS STABLE, NO DISTRESS NOTED, DENIES PAIN, CALL LIGHT WITHIN REACH, WILL CONTINUE TO MONITOR.
[2016-08-13] MEDS: HYDROmorphone 2 MG/ML VIAL IVP PRN (23:14)
--- NOTE | 2016-08-13 23:14 | NUR ---
PAIN PT. C/O SEVERE PAIN RATED 9/10 TO L. ABDOMEN, DILAUDID 2 MG IVP GIVEN ORDERED. VITAL SIGNS STABLE, NO DISTRESS NOTED, CALL LIGHT WITHIN REACH.
[2016-08-13 23:27] VITALS: BP_SYST 134
--- NOTE | 2016-08-14 01:00 | NUR ---
RN ROUNDS PT. SLEEPING, VITAL SIGNS STABLE, NO DISTRESS NOTED, NO S/S OF PAIN OR DISCOMFORT, CALL LIGHT WITHIN REACH, BED IN LOWEST POSITION.
--- NOTE | 2016-08-14 03:00 | NUR ---
RN ROUNDS PT. SLEEPING, VITAL SIGNS STABLE, NO DISTRESS NOTED, NO S/S OF PAIN OR DISCOMFORT, CALL LIGHT WITHIN REACH, BED IN LOWEST POSITION.
[2016-08-14] MEDS: ONDANSETRON HCL 4 MG/2 ML VIAL IVP PRN ×2 (03:56→22:10)
[2016-08-14] MEDS: HYDROmorphone 2 MG/ML VIAL IVP PRN ×5 (03:57→22:14)
--- NOTE | 2016-08-14 03:57 | NUR ---
PAIN/NAUSEA PT. C/O NAUSEA, ZOFRAN 4 MG IVP GIVEN ORDERED, PT. C/O GENERALIZED ABDOMINAL PAIN RATED 9/10, DILAUDID 2 MG IVP GIVEN ORDERED. VITAL SIGNS STABLE, CALL LIGHT WITHIN REACH.
--- NOTE | 2016-08-14 05:45 | NUR ---
ACCUCHECK BLOOD JOEUZ=[id number], NO COVERAGE REQUIRED.
[2016-08-14 05:58] VITALS: BP_SYST 128
[2016-08-14] MEDS: METOCLOPRAMIDE HCL 10 MG/2 ML VIAL IVP SCH ×4 (05:59→23:58)
[2016-08-14] MEDS: cloNIDine HCL 0.2 MG TABLET PO SCH ×3 (06:02→21:19)
[2016-08-14] MEDS: hydrALAZINE HCL 25 MG TABLET PO SCH ×3 (06:02→21:20)
--- NOTE | 2016-08-14 06:40 | NUR ---
CLOSING NOTES PT. RESTING QUIETLY, VITAL SIGNS STABLE, NO DISTRESS NOTED, DENIES PAIN. IV ACCESS FLUSHED WELL. CALL LIGHT WITHIN REACH, BED IN LOWEST POSITION, ALL ANTICIPATED NEEDS MET, KEPT COMFORTABLE.
[2016-08-14 07:07] LABS: BASOPHILS % (AUTO) 0.5 % (0.0-2.0); EOSINOPHILS # (AUTO) 0.1 K/uL (0.0-0.4); HEMATOCRIT 25.4 % (36-54); HEMOGLOBIN 8.6 g/dL (14.0-18.0); LYMPHOCYTES # (AUTO) 3.5 K/uL (1.0-5.5); LYMPHOCYTES % (AUTO) 36.2 % (20.5-51.5); MEAN CORPUSCULAR HEMOGLOBIN 31 pg (27-31); MEAN CORPUSCULAR HGB CONC 34 % (32-36); MEAN CORPUSCULAR VOLUME 92 fL (79.0-98.0); MONOCYTES # (AUTO) 0.8 K/uL (0.0-1.0); MONOCYTES % (AUTO) 8.5 % (1.7-9.3); NEUTROPHILS # (AUTO) 5.2 K/uL (1.8-7.7); NEUTROPHILS % (AUTO) 53.8 % (40.0-70.0); PLATELET COUNT (AUTO) 244 K/uL (130-430); RED BLOOD CELL COUNT(AUTO) 2.76 MIL/uL (4.2-6.2); RED CELL DISTRIBUTION WIDTH 12.9 % (9.0-15.0); WHITE BLOOD COUNT (AUTO) 9.6 K/uL (4.8-10.8)
[2016-08-14 07:20] LABS: CALCIUM 8.1 mg/dL (8.4-11.0); POTASSIUM 4.4 mmol/L (3.5-5.1)
[2016-08-14 07:29] LABS: CREATININE 8.27 mg/dL (0.55-1.30)
[2016-08-14] MEDS: FUROSEMIDE 40 MG TABLET PO SCH ×2 (09:10→21:18)
[2016-08-14] MEDS: VALSARTAN 160 MG TABLET (DIOVAN) PO SCH ×2 (09:10→21:19)
[2016-08-14] MEDS: GABAPENTIN 300 MG CAPSULE PO SCH ×3 (09:11→21:18)
[2016-08-14] MEDS: METOPROLOL TARTRATE 50 MG TABLET PO SCH ×2 (09:11→21:20)
[2016-08-14] MEDS: CINACALCET HCL 30 MG TABLET PO SCH (09:12)
[2016-08-14] MEDS: PANTOPRAZOLE SODIUM 40 MG TAB PO SCH (09:12)
[2016-08-14] MEDS: BRIMONIDINE TARTRATE 0.2% 5 mL EYE DROPS OP SCH ×2 (09:19→21:18)
[2016-08-14 12:30] VITALS: BP_SYST 129
[2016-08-14 16:39] VITALS: BP_SYST 132
[2016-08-14] MEDS: INSULIN REGULAR, HUMAN 100 UNITS/ML, 10 ML VIAL (novoLIN R) SUBCUT PRN (18:20)
--- NOTE | 2016-08-14 19:41 | NUR ---
PM NOTE PT. RESTING QUIETLY, VITAL SIGNS STABLE, NO DISTRESS NOTED, DENIES PAIN, NOTED WITH DRESSING TO RIGHT UPPER CHEST, CLEAN, DRY INTACT. UPDATED WITH PLAN OF CARE, ENCOURAGED PT. TO USE CALL LIGHT FOR ASSISTANCE, CALL LIGHT WITHIN REACH, BED IN LOWEST POSITION.
[2016-08-14 19:53] VITALS: BP_SYST 145
[2016-08-14] MEDS: MIRTAZAPINE 15 MG TABLET PO SCH (21:18)
--- NOTE | 2016-08-14 21:30 | NUR ---
RN ROUNDS PT. RESTING QUIETLY, VITAL SIGNS STABLE, NO DISTRESS NOTED, DENIES PAIN. CALL LIGHT WITHIN REACH, BED IN LOWEST POSITION.
--- NOTE | 2016-08-14 23:30 | NUR ---
RN ROUNDS PT. SLEEPING, VITAL SIGNS STABLE, NO DISTRESS NOTED, DENIES PAIN. CALL LIGHT WITHIN REACH, BED IN LOWEST POSITION.
[2016-08-15] VITALS: BP_SYST 148
--- NOTE | 2016-08-15 01:30 | NUR ---
RN ROUNDS PT. SLEEPING, VITAL SIGNS STABLE, NO DISTRESS NOTED, DENIES PAIN. CALL LIGHT WITHIN REACH, BED IN LOWEST POSITION.
[2016-08-15] MEDS: ONDANSETRON HCL 4 MG/2 ML VIAL IVP PRN (03:43)
[2016-08-15] MEDS: HYDROmorphone 2 MG/ML VIAL IVP PRN ×5 (03:43→22:36)
--- NOTE | 2016-08-15 03:43 | NUR ---
NAUSEA/PAIN PT. C/O NAUSEA, ZOFRAN 4 MG IVP GIVEN ORDERED, PT. C/O LOWER ABDOMINAL PAIN RATED 7/10 SEVERE PAIN, DILAUDID 2 MG IVP GIVEN ORDERED. VITAL SIGNS STABLE, CALL LIGHT WITHIN REACH.
[2016-08-15 04:00] VITALS: BP_SYST 134
--- NOTE | 2016-08-15 05:00 | NUR ---
RN ROUNDS PT. RESTING QUIETLY, VITAL SIGNS STABLE, NO DISTRESS NOTED. BED IN LOWEST POSITION. CALL LIGHT WITHIN REACH.
[2016-08-15] MEDS: METOCLOPRAMIDE HCL 10 MG/2 ML VIAL IVP SCH ×4 (05:35→23:36)
[2016-08-15] MEDS: hydrALAZINE HCL 25 MG TABLET PO SCH ×3 (05:39→21:49)
[2016-08-15] MEDS: cloNIDine HCL 0.2 MG TABLET PO SCH ×3 (05:40→21:49)
--- NOTE | 2016-08-15 06:06 | NUR ---
ACCUCHECK BLOOD FPSBZ=[id number], NO COVERAGE REQUIRED.
--- NOTE | 2016-08-15 06:26 | NUR ---
CLOSING NOTES PT. RESTING QUIETLY, VITAL SIGNS STABLE, NO DISTRESS NOTED, DENIES PAIN, DENIES NAUSEA, IV ACCESS FLUSHED WELL AND SALINE LOCKED. BED IN LOWEST POSITION, CALL LIGHT WITHIN REACH. ALL ANTICIPATED NEEDS MET, KEPT COMFORTABLE.
--- NOTE | 2016-08-15 08:00 | NUR ---
AM Initial Notes Pt aaox4 but legally blind to both eyes. Complaints of abdominal pain 10/27. Repositioned and informed RN for medication administration. No distress noted. Pt has no hemodialysis access. Possible procedure today for permacath placement. Fall and safety precautions enforced with bed alarm armed, 3 rails up, and close to nurse's station. Encouraged to call for assistance. Call light within reach. Will monitor.
[2016-08-15 08:22] VITALS: BP_SYST 133
[2016-08-15 08:50] LABS: BASOPHILS # (AUTO) 0.1 K/uL (0.0-0.2); BASOPHILS % (AUTO) 0.8 % (0.0-2.0); EOSINOPHILS # (AUTO) 0.1 K/uL (0.0-0.4); EOSINOPHILS % (AUTO) 1.2 % (0.0-4.0); HEMATOCRIT 24.9 % (36-54); HEMOGLOBIN 8.3 g/dL (14.0-18.0); LYMPHOCYTES # (AUTO) 3.4 K/uL (1.0-5.5); LYMPHOCYTES % (AUTO) 31.8 % (20.5-51.5); MEAN CORPUSCULAR HEMOGLOBIN 30 pg (27-31); MEAN CORPUSCULAR HGB CONC 33 % (32-36); MEAN CORPUSCULAR VOLUME 91 fL (79.0-98.0); MONOCYTES # (AUTO) 0.7 K/uL (0.0-1.0); MONOCYTES % (AUTO) 6.3 % (1.7-9.3); NEUTROPHILS # (AUTO) 6.4 K/uL (1.8-7.7); NEUTROPHILS % (AUTO) 59.9 % (40.0-70.0); PLATELET COUNT (AUTO) 251 K/uL (130-430); RED BLOOD CELL COUNT(AUTO) 2.75 MIL/uL (4.2-6.2); RED CELL DISTRIBUTION WIDTH 13.3 % (9.0-15.0); WHITE BLOOD COUNT (AUTO) 10.7 K/uL (4.8-10.8)
[2016-08-15 09:00] LABS: ALBUMIN 3.1 g/dL (3.4-4.8); CALCIUM 7.9 mg/dL (8.4-11.0); TOTAL BILIRUBIN 0.4 mg/dL (0.0-1.0); TOTAL PROTEIN, SERUM 6.4 g/dL (6.4-8.3)
[2016-08-15 09:07] LABS: POTASSIUM 5.8 mmol/L (3.5-5.1)
[2016-08-15 09:10] LABS: CREATININE 10.31 mg/dL (0.55-1.30)
[2016-08-15] MEDS: CINACALCET HCL 30 MG TABLET PO SCH (09:48)
[2016-08-15] MEDS: PANTOPRAZOLE SODIUM 40 MG TAB PO SCH (09:48)
[2016-08-15] MEDS: GABAPENTIN 300 MG CAPSULE PO SCH ×3 (09:48→21:47)
[2016-08-15] MEDS: FUROSEMIDE 40 MG TABLET PO SCH ×2 (09:50→21:46)
[2016-08-15] MEDS: VALSARTAN 160 MG TABLET (DIOVAN) PO SCH ×2 (09:51→21:46)
[2016-08-15] MEDS: METOPROLOL TARTRATE 50 MG TABLET PO SCH ×2 (09:51→21:47)
[2016-08-15] MEDS: BRIMONIDINE TARTRATE 0.2% 5 mL EYE DROPS OP SCH ×2 (09:52→21:44)
--- NOTE | 2016-08-15 10:00 | NUR ---
Nutrition Update Buddy Scale 17 noted. Pt admitted for ARF. Diet: renal standard BMI: 32.3 kg/m2 RD to follow per nutrition care standards.
--- NOTE | 2016-08-15 11:20 | NUR ---
Dr. Raghu MONDRAGON doing rounds. Plan of care discussed with patient.
[2016-08-15] MEDS ORDERED: SODIUM POLYSTYRENE SULFONATE 15 GM/60 ML UDBTL PO ONE (11:45)
--- NOTE | 2016-08-15 11:45 | NUR ---
Education Mother of patient brought fast food wrap from [employer]. Patient eating the fast food wrap. Educated patient and family about being compliant with Renal diet due to Hemodialysis and Renal failure. Pt and family verbalized understanding.
[2016-08-15] MEDS: INSULIN REGULAR, HUMAN 100 UNITS/ML, 10 ML VIAL (novoLIN R) SUBCUT PRN ×2 (11:50)
[2016-08-15 12:12] VITALS: BP_SYST 124
--- NOTE | 2016-08-15 13:19 | NUR ---
Pain Pt complaints of abdominal pain 09/26. No distress noted. Will inform RN for medication administration.
--- NOTE | 2016-08-15 16:15 | NUR ---
Rounds Pt asleep. No signs of facial grimacing for pain or discomfort. No distress noted. Call light within reach. Family at bedside. Will monitor.
[2016-08-15 16:42] VITALS: BP_SYST 132
--- NOTE | 2016-08-15 18:46 | NUR ---
Closing notes Pt asleep. No significant changes noted. Kept comfortable. Will endorse care to incoming nurse.
[2016-08-15 19:55] VITALS: BP_SYST 157
--- NOTE | 2016-08-15 20:00 | NUR ---
OPENING ASSESSMENT PATIENT ALERT/ORIENTED X4. SPEECH IS CLEAR AND APPROPRIATE. DENIES PAIN @ THIS TIME. MOVES ALL EXTREMITIES STRONG TO COMMAND. BLIND BILATERAL EYE. ORIENTED TO UNIT. HAS SALINE LOCK 22G RFA PATENT. SITE IS CLEAR. TOLERATING RENAL DIET WELL. DENIES NAUSEA NPO POST MIDNIGHT FOR PERMACATH PLACEMENT. CALL LIGHT AND PHONE WITHIN EASY ACCESS. INFORMED PATIENT NOT TO GET OUT OF BED. CALL NURSE FOR ALL NEEDS.
[2016-08-15] MEDS: MIRTAZAPINE 15 MG TABLET PO SCH (21:48)
--- NOTE | 2016-08-15 23:00 | NUR ---
initial nursing notes: Patient awake in bed. Patient has IV access on the right forearm. Patient denies of having pain.
--- NOTE | 2016-08-15 23:45 | NUR ---
nursing rounds: Checked patient's blood sugar, 117. Reminded patient of his NPO status after midnight for dialysis access placement tomorrow. Patient verbalized understanding. Patient provided snack per patient's request, before becoming NPO.
[2016-08-16] VITALS (9 sets, daily range): BP systolic 126–148
--- NOTE | 2016-08-16 01:45 | NUR ---
nursing rounds: Patient asleep in bed. Patient has no shortness of breath.
--- NOTE | 2016-08-16 03:45 | NUR ---
nursing rounds: Patient sleeping in bed. Patient's breathing pattern is regular and unlabored.
[2016-08-16] MEDS: HYDROmorphone 2 MG/ML VIAL IVP PRN ×5 (04:22→21:56)
--- NOTE | 2016-08-16 05:45 | NUR ---
nursing rounds: Patient stated that the pain medication was effective in treating his abdominal pain.
[2016-08-16] MEDS: METOCLOPRAMIDE HCL 10 MG/2 ML VIAL IVP SCH ×3 (06:10→17:28)
[2016-08-16] MEDS: cloNIDine HCL 0.2 MG TABLET PO SCH ×3 (06:23→22:00)
[2016-08-16] MEDS: hydrALAZINE HCL 25 MG TABLET PO SCH ×3 (06:24→22:00)
[2016-08-16 07:10] LABS: BASOPHILS # (AUTO) 0.1 K/uL (0.0-0.2); BASOPHILS % (AUTO) 0.5 % (0.0-2.0); EOSINOPHILS # (AUTO) 0.2 K/uL (0.0-0.4); EOSINOPHILS % (AUTO) 1.5 % (0.0-4.0); HEMATOCRIT 24.1 % (36-54); HEMOGLOBIN 8.1 g/dL (14.0-18.0); LYMPHOCYTES # (AUTO) 3.7 K/uL (1.0-5.5); LYMPHOCYTES % (AUTO) 31.7 % (20.5-51.5); MEAN CORPUSCULAR HEMOGLOBIN 31 pg (27-31); MEAN CORPUSCULAR HGB CONC 34 % (32-36); MEAN CORPUSCULAR VOLUME 92 fL (79.0-98.0); MONOCYTES # (AUTO) 0.9 K/uL (0.0-1.0); MONOCYTES % (AUTO) 7.8 % (1.7-9.3); NEUTROPHILS # (AUTO) 6.7 K/uL (1.8-7.7); NEUTROPHILS % (AUTO) 58.5 % (40.0-70.0); PLATELET COUNT (AUTO) 245 K/uL (130-430); RED BLOOD CELL COUNT(AUTO) 2.64 MIL/uL (4.2-6.2); RED CELL DISTRIBUTION WIDTH 13.5 % (9.0-15.0); WHITE BLOOD COUNT (AUTO) 11.6 K/uL (4.8-10.8)
[2016-08-16 07:27] LABS: INR 0.9 (0.80-1.20); PROTHROMBIN TIME 9.9 SECS (9.5-12.5)
--- NOTE | 2016-08-16 07:35 | NUR ---
INITIAL NOTE RECEIVED PATIENT FROM ELECTRIC SHAVER MECHANIC NURSE, PATIENT IS ALERT AND ORIENTED X4. ASSESSMENT COMPLETE, PATIENT HAS IV IN RIGHT FOREARM SALINE LOCK, FLUSHES WELL, PATIENT IS ABLE TO COMMUNICATE, PATIENT IS BLIND BOTH EYES, INSTRUCTED PATIENT THAT HE IS SUPPOSED TO BE NPO FOR PROCEDURE, PATIENT IS AWARE, INSTRUCTED PATIENT TO USE CALL JOSEPH IF ASSISTANCE IS NEEDED, PATIENT VERBALIZED UNDERSTANDING. CALL JOSEPH LEFT IN PATIENT'S HAND, BED ALARM ON, SIDE RAILS UP, FALL PRECAUTIONS IN PLACE, WILL CONTINUE TO MONITOR. .
[2016-08-16 07:36] LABS: CALCIUM 7.6 mg/dL (8.4-11.0); POTASSIUM 5.3 mmol/L (3.5-5.1); TOTAL BILIRUBIN 0.4 mg/dL (0.0-1.0); TOTAL PROTEIN, SERUM 6.4 g/dL (6.4-8.3)
--- NOTE | 2016-08-16 08:00 | NUR ---
closing nursing notes: Patient is awake, alert and oriented X 4. Patient is in no acute respiratory distress. No episodes of fall and no injuries throughout the production shift supervisor. Provided nursing report to incoming morning shift nurse, BRANNON Le, at patient's bedside.
[2016-08-16 08:07] LABS: CREATININE 11.69 mg/dL (0.55-1.30)
[2016-08-16] MEDS: CINACALCET HCL 30 MG TABLET PO SCH (08:27)
[2016-08-16] MEDS: PANTOPRAZOLE SODIUM 40 MG TAB PO SCH (08:27)
[2016-08-16] MEDS: EPOETIN ALFA 3,000 UNITS/ML VIAL SUBCUT SCH (08:28)
[2016-08-16] MEDS: GABAPENTIN 300 MG CAPSULE PO SCH ×3 (08:28→21:00)
[2016-08-16] MEDS: FUROSEMIDE 40 MG TABLET PO SCH ×2 (08:30→21:00)
[2016-08-16] MEDS: VALSARTAN 160 MG TABLET (DIOVAN) PO SCH ×2 (08:31→21:00)
[2016-08-16] MEDS: METOPROLOL TARTRATE 50 MG TABLET PO SCH ×2 (08:31→21:00)
--- NOTE | 2016-08-16 08:42 | NUR ---
MEDICATIONS PATIENT RECEIVED MORNING MEDICATIONS, PATIENT IS NPO EXCEPT MEDS, EDUCATED PATIENT ON POTENTIAL SIDE EFFECTS, PATIENT VERBALIZED UNDERSTANDING, PATIENT TOLERATED WELL, NO OTHER NEEDS AT THIS TIME, WILL CONTINUE TO MONITOR.
--- NOTE | 2016-08-16 09:36 | NUR ---
RN ROUNDS PATIENT IS CURRENTLY RESTING IN BED WITH EYES CLOSED, NO SIGNS OF DISTRESS NOTED, CALL JOSEPH LEFT NEXT TO PATIENT'S HAND, FALL PRECAUTIONS IN PLACE, WILL CONTINUE TO MONITOR.
--- NOTE | 2016-08-16 11:27 | NUR ---
RN ROUNDS PATIENT IS CURRENTLY RESTING IN BED, GLUCOSE CHECKED, NO INSULIN COVERAGE NEEDED, WILL CONTINUE TO MONITOR PATIENT.
--- NOTE | 2016-08-16 13:00 | NUR ---
RN ROUNDS PATIENT IS CURRENTLY RESTING IN BED, MOTHER IS AT BEDSIDE, PAIN MEDICATIONS IS WORKING FOR PATIENT, NO OTHER NEEDS AT THIS TIME, WILL CONTINUE TO MONITOR.
[2016-08-16] MEDS: BRIMONIDINE TARTRATE 0.2% 5 mL EYE DROPS OP SCH ×2 (14:47→22:20)
--- NOTE | 2016-08-16 14:51 | NUR ---
RN ROUNDS PATIENT IS CURRENTLY LYING IN BED TALKING ON CELL PHONE, PATIENT STATES HE IS NOT IN ANY PAIN AT THIS TIME, WILL CONTINUE TO MONITOR.
[2016-08-16] MEDS ORDERED: CEFAZOLIN 2 GM IVPB PREMIX 50 ML IV ONE (15:31)
[2016-08-16] MEDS ORDERED: HEPARIN SODIUM, PORCINE 10,000 UNITS/ 10 ML VIAL MC ONE (15:31)
[2016-08-16] MEDS ORDERED: NS 100 ML BAG IV ONE (15:31)
[2016-08-16] MEDS ORDERED: LABETALOL 100 MG/ 20ML VIAL IVP ONE (15:31)
[2016-08-16] MEDS ORDERED: MIDAZOLAM HCL 5 MG/5 ML VIAL IVP ONE (15:31)
[2016-08-16] MEDS ORDERED: LIDOCAINE 1% 10 MG/ML, 20 ML MDV INJ ONE (15:31)
[2016-08-16] MEDS ORDERED: PROPOFOL 200MG/ 20ML VIAL (DIPRIVAN) IV ONE (15:31)
--- NOTE | 2016-08-16 15:40 | NUR ---
patient is off of unit, patient in stable condition, vital signs stable
[2016-08-16] MEDS ORDERED: ONDANSETRON HCL 4 MG/2 ML VIAL IVP PRN (16:15)
[2016-08-16] MEDS ORDERED: MORPHINE 4 MG/ML INJ. SYRINGE IVP PRN (16:15)
[2016-08-16] MEDS ORDERED: NACL 0.9% 1,000 ML IV SCH (16:15)
--- NOTE | 2016-08-16 17:15 | NUR ---
PATIENT IS BACK ON UNIT PATIENT IS BACK FROM PROCEDURE, PATIENT'S VITAL SIGNS ARE STABLE, WILL CONTINUE TO MONITOR PATIENT, FALL PRECAUTIONS IN PLACE.
--- NOTE | 2016-08-16 18:25 | NUR ---
PAGED PAGED LILY STANLEY AT [phone] SPOKE WITH CONNOR.
--- NOTE | 2016-08-16 18:41 | NUR ---
CLOSING NOTE PATIENT IS CURRENTLY RESTING IN BED, NO SIGNS OF DISTRESS NOTED, PATIENT'S BREATHING IS EVEN AND UNLABORED, NO SIGNS OF DISTRESS NOTED, ALL NEEDS MET, WILL ENDORSE PATIENT TO CHARGING OPERATOR NURSE, PATIENT IS TO HAVE DIALYSIS, NURSE RETURN CLERK AWARE, DIALYSIS NURSE AWARE, NO TIME OF YET, NO OTHER NEEDS AT THIS TIME, BED IN LOWEST POSITION, BED ALARM ON, SIDE RAILS UP, FALL PRECAUTIONS IN PLACE,
--- NOTE | 2016-08-16 18:59 | NUR ---
No Antibiotics ordered: has made round and has a note to continue the same antibiotics, but the patient does not have any antibiotics order. Call and he said up to Dr. Clark. Call Dr. Clark but Dr. Rucker is grooming salon manager, and he states just keep it that way, no new order.
--- NOTE | 2016-08-16 20:00 | NUR ---
Assumed care of pt this pm/director biology;Assess as charted, pt very sleepy due to surgery but alert when aroused;no signs/symptoms of acute distress evident
[2016-08-16] MEDS: MIRTAZAPINE 15 MG TABLET PO SCH (21:00)
--- NOTE | 2016-08-16 22:00 | NUR ---
eye clinic manager at bedside,dialysis in progress;pt appears to be daphne well; no signs/symptoms of acute distress observed
[2016-08-17] VITALS (7 sets, daily range): BP systolic 108–156
[2016-08-17] MEDS: INSULIN REGULAR, HUMAN 100 UNITS/ML, 10 ML VIAL (novoLIN R) SUBCUT PRN (00:25)
[2016-08-17] MEDS: METOCLOPRAMIDE HCL 10 MG/2 ML VIAL IVP SCH ×5 (00:26→23:05)
--- NOTE | 2016-08-17 01:25 | NUR ---
RESUMED CARE FROM NICHOLAS-REGISTRY NURSE--3 LITER REMOVED FROM DIALYSIS -Pt is resting in bed. No s/s any acute distress noted. Saline kimberli of rt f/a #22,patent, no s/s any infiltration after flushed w/ NS,drsg cdi. Drsg cdi of old Permacath removal of rt chest wall. New Permacath of left chest wall-drsg cdi. All safety measures in place. Call light w/in reach. Continue to monitor pt.
--- NOTE | 2016-08-17 01:25 | NUR ---
Report given & care surrendered to BRANNON Morrissey
[2016-08-17] MEDS: HYDROmorphone 2 MG/ML VIAL IVP PRN ×5 (02:13→22:48)
--- NOTE | 2016-08-17 02:15 | NUR ---
ROUNDS;PAIN MEDICATION ADMINISTERED -Pt is c/o abdominal pain emil, gave Dilaudid 2mg IVP. Saline kimberli of rt f/a #22,patent, no s/s any infiltration after flushed w/ NS,drsg cdi. Drsg cdi of old Permacath removal of rt chest wall. New Permacath of left chest wall-drsg cdi. All safety measures in place. Call light w/in reach. Continue to monitor pt.
[2016-08-17] MEDS: cloNIDine HCL 0.2 MG TABLET PO SCH ×3 (05:44→22:47)
[2016-08-17] MEDS: hydrALAZINE HCL 25 MG TABLET PO SCH ×3 (05:44→22:47)
--- NOTE | 2016-08-17 06:25 | NUR ---
ROUNDS;PAIN MEDICATION ADMINISTERED -Pt is c/o abdominal pain sharp, gave Dilaudid 2mg IVP. All safety measures in place. Call light w/in reach. Continue to monitor pt.
--- NOTE | 2016-08-17 06:54 | NUR ---
CLOSING NOTES; -Pt is using incentive spirometry now. Encouraged to use 10x/hr while awake,pt shows good return teaching. -Pt is resting in bed. No s/s any acute distress noted. Saline kimberli of rt f/a #22,patent, no s/s any infiltration, drsg cdi. Drsg cdi of old Permacath removal of rt chest wall. New Permacath of left chest wall-drsg cdi. All safety measures in place. Call light w/in reach. Will endorse to oncoming nurse to continue care. Addendum: 08/17/16 at 0743 by Tae Martinez RN ADDITIONAL NOTES; ENDORSED TO RADHA AT BEDSIDE TO CONTINUE CARE
--- NOTE | 2016-08-17 08:00 | NUR ---
INITIAL NOTE PT RESTING, EASY TO AROUSE, NO SOB, DISTRESS NOTED, PT ALERT AND ORIENTED, BLIND FROM BOTH EYES,PT C/O PAIN WILL FOLLOW UP WITH APPROPRIATE MEDICATION, IV TO RFA INTACT, SALINE LOCKED, PLAN OF CARE DISCUSSED, PT VERBALIZED UNDERSTANDING, PT REORIENTED TO USE OF CALL LIGHT AND IT IS PLACED, WITHIN REACH, SAFETY MEASURES IN PLACE, BED IN LOW POSITION AND LOCKED, WILL FOLLOW UP
[2016-08-17] MEDS: BRIMONIDINE TARTRATE 0.2% 5 mL EYE DROPS OP SCH ×2 (08:28→21:09)
[2016-08-17] MEDS: VALSARTAN 160 MG TABLET (DIOVAN) PO SCH ×2 (08:29→21:08)
[2016-08-17] MEDS: PANTOPRAZOLE SODIUM 40 MG TAB PO SCH (08:29)
[2016-08-17] MEDS: CINACALCET HCL 30 MG TABLET PO SCH (08:29)
[2016-08-17] MEDS: GABAPENTIN 300 MG CAPSULE PO SCH ×3 (08:30→21:08)
[2016-08-17] MEDS: FUROSEMIDE 40 MG TABLET PO SCH ×2 (08:30→21:09)
[2016-08-17] MEDS: METOPROLOL TARTRATE 50 MG TABLET PO SCH ×2 (08:30→21:08)
[2016-08-17] MEDS: HYDROmorphone 1 MG INJ. 1 MG/ML AMPUL IVP PRN (08:31)
--- NOTE | 2016-08-17 09:50 | NUR ---
DR SONG MAKING ROUNDS, NEW ORDERS RECEIVED FOR DIALYSIS TOMORROW, Addendum: 08/17/16 at 1246 by Merari Antony RN PATIENT MAD AWARE AND VERBALIZED AGREEMENT
--- NOTE | 2016-08-17 12:00 | NUR ---
ACCUCHECK 108, NO COVERAGE NEEDED PER SLIDING SCALE. PT AWAKE, NO COMPLAINT OF SOB OR PAIN AT THIS TIME, SAFETY MEASURES IN PLACE, CALL LIGHT WITHIN REACH, WILL CONTINUE TO MONITOR
--- NOTE | 2016-08-17 14:00 | NUR ---
IV RE-INSERTION: Complaining of pain to IV site. Restarted on RIGHT HAND 22GG. Successful after 2 attempts. SITE SALINE LOCKED. Will observe for any signs of infiltration. PT TOLERATED WELL. SAFETY MEASURES INPALCE, WILL FOLLOW UP
--- NOTE | 2016-08-17 15:30 | NUR ---
ACCUCHECK 134, NO COVERAGE NEEDED PER SLIDING SCALE PT SITTING UP IN BED, FAMILY MEMBERS AT BEDSIDE CONVERSING, NO PAIN OR DISTRESS NOTED, PT STATES HE HAS NO NEEDS AT THIS TIME BUT IF I CAN BRING PAIN MEDICATION WHEN IT IS DUE, WILL FOLLOW UP.
--- NOTE | 2016-08-17 17:30 | NUR ---
ROUNDS PT SITTING UP IN BED, FAMILY AT BEDSIDE, VSS, NO C/O PAIN OR DISCOMFORT, PT STATES HE HAS NO NEEDS AT THIS TIME, CALL LIGHT WIHTIN REACH, BED IN LOW POSITION AND LOCKED, WILL FOLLOW UP
--- NOTE | 2016-08-17 19:00 | NUR ---
CLOSING NOTE PT AWAKE, ALERT, NO S/S OF DISTRESS OR PAIN, VSS, IV TO RIGHT HAND INTACT, SALINE LOCKED, MOTHER AT BEDSIDE, ALL NEEDS ATTENDED TO THROUGH OUT SHIFT, SAFETY MEASURES MAINTAINED, CALL LIGHT WITHIN REACH, BED ALARM ON, BED IN LOW POSITION AND LOCKED, WILL GIVE REPORT TO FOLLOWING SHIFT
--- NOTE | 2016-08-17 19:50 | NUR ---
INITIAL NOTES; -Pt is a/ox4, resting in bed. Mother is at bedside. Pt denies any pain,sob,or any acute distress. Saline kimberli of rt f/a #22,patent, no s/s any infiltration after flushed w/ NS,drsg cdi. Drsg cdi of old Permacath removal of rt chest wall. New Permacath of left chest wall-drsg cdi. All safety measures in place. Encourages to use incentive spirometry 10x/hr while awakes, pt shows good teaching back. Discussed poc,all safety measures with pt and family, pt verbalized understanding. Call light w/in reach. Continue to monitor pt.
[2016-08-17] MEDS: MIRTAZAPINE 15 MG TABLET PO SCH (21:08)
--- NOTE | 2016-08-17 21:09 | NUR ---
NOTES; -Pt is resting in bed. Gave all po medications, pt tolerated well. No visitor is at bedside. All safety measures in place. Call light w/in reach. Continue to monitor pt.
--- NOTE | 2016-08-17 22:48 | NUR ---
ROUNDS;PAIN MEDICATION ADMINISTERED -Pt is c/o abdominal pain sharp, gave Dilaudid 2mg IVP. All safety measures in place. Call light w/in reach. Continue to monitor pt.
--- NOTE | 2016-08-18 01:45 | NUR ---
NOTES; -Pt is resting in bed. No s/s any acute distress noted. All safety measures in place. Call light w/in reach. Continue to monitor pt.
[2016-08-18] MEDS: HYDROmorphone 2 MG/ML VIAL IVP PRN ×5 (03:50→22:09)
--- NOTE | 2016-08-18 03:50 | NUR ---
ROUNDS;PAIN MEDICATION ADMINISTERED -Pt is c/o abdominal pain sharp, gave Dilaudid 2mg IVP. All safety measures in place. Call light w/in reach. Continue to monitor pt.
[2016-08-18 04:30] VITALS: BP_SYST 135
[2016-08-18] MEDS: METOCLOPRAMIDE HCL 10 MG/2 ML VIAL IVP SCH ×3 (05:11→17:28)
[2016-08-18] MEDS: cloNIDine HCL 0.2 MG TABLET PO SCH ×3 (05:12→22:08)
[2016-08-18] MEDS: hydrALAZINE HCL 25 MG TABLET PO SCH ×3 (05:12→22:07)
--- NOTE | 2016-08-18 05:30 | NUR ---
NOTES; -Pt is resting in bed. No s/s any acute distress noted. All safety measures in place. Call light w/in reach. Continue to monitor pt.
[2016-08-18 06:54] LABS: BASOPHILS # (AUTO) 0.1 K/uL (0.0-0.2); BASOPHILS % (AUTO) 0.4 % (0.0-2.0); EOSINOPHILS # (AUTO) 0.2 K/uL (0.0-0.4); EOSINOPHILS % (AUTO) 1.3 % (0.0-4.0); HEMATOCRIT 23.6 % (36-54); HEMOGLOBIN 8.1 g/dL (14.0-18.0); LYMPHOCYTES # (AUTO) 2.6 K/uL (1.0-5.5); LYMPHOCYTES % (AUTO) 19.7 % (20.5-51.5); MEAN CORPUSCULAR HEMOGLOBIN 31 pg (27-31); MEAN CORPUSCULAR HGB CONC 34 % (32-36); MEAN CORPUSCULAR VOLUME 91 fL (79.0-98.0); MONOCYTES # (AUTO) 0.9 K/uL (0.0-1.0); MONOCYTES % (AUTO) 6.5 % (1.7-9.3); NEUTROPHILS # (AUTO) 9.4 K/uL (1.8-7.7); NEUTROPHILS % (AUTO) 72.1 % (40.0-70.0); PLATELET COUNT (AUTO) 242 K/uL (130-430); RED BLOOD CELL COUNT(AUTO) 2.58 MIL/uL (4.2-6.2); RED CELL DISTRIBUTION WIDTH 13.6 % (9.0-15.0); WHITE BLOOD COUNT (AUTO) 13.2 K/uL (4.8-10.8)
[2016-08-18 07:06] LABS: CALCIUM 7.6 mg/dL (8.4-11.0); PHOSPHORUS 8.4 mg/dL (2.7-4.5)
--- NOTE | 2016-08-18 07:15 | NUR ---
CLOSING NOTES; -Pt is resting. No s/s any pain,sob,or any acute distress noted. Saline kimberli of rt f/a #22,patent, no s/s any infiltration after flushed w/ NS,drsg cdi. Drsg cdi of old Permacath removal of rt chest wall. New Permacath of left chest wall-drsg cdi. All safety measures in place. Call light w/in reach. Pt tor have Hemodialysis today and [facility] awares. Endorsed to Sven to continue care.
[2016-08-18 07:52] LABS: POTASSIUM 5.8 mmol/L (3.5-5.1)
[2016-08-18 07:54] LABS: CREATININE 11.48 mg/dL (0.55-1.30)
[2016-08-18 08:00] VITALS: BP_SYST 148
--- NOTE | 2016-08-18 08:00 | NUR ---
INITIAL NOTE PT RESTING, EASY TO AROUSE, NO S/S OF DISTRESS, SOB OR PAIN NOTED, IV TO RIGHT HAND INTACT, NO S/S OF INFILTRATION NOTED, SALINE LOCKED, PT ALERT AND ORIENTED X4, BLIND, DRESSING NOTED TO RIGHT UPPER CHEST, CDI, PERMCATH NOTED TO LEFT UPPER CHEST, DRESSING CLEAN DRY AND INTACT, PLAN OF CARE DISCUSSED WITH PATIENT, PT VERBALIZED UNDERSTANDING, CALL LIGHT PLACED WITHIN REACH, SAFETY MEASURES IN PLACE, BED ALARM, WILL FOLLOW UP
[2016-08-18] MEDS: BRIMONIDINE TARTRATE 0.2% 5 mL EYE DROPS OP SCH ×2 (08:26→22:15)
[2016-08-18] MEDS: GABAPENTIN 300 MG CAPSULE PO SCH ×3 (08:27→22:07)
[2016-08-18] MEDS: EPOETIN ALFA 3,000 UNITS/ML VIAL SUBCUT SCH (08:27)
[2016-08-18] MEDS: PANTOPRAZOLE SODIUM 40 MG TAB PO SCH (08:28)
[2016-08-18] MEDS: CINACALCET HCL 30 MG TABLET PO SCH (08:28)
[2016-08-18] MEDS: VALSARTAN 160 MG TABLET (DIOVAN) PO SCH ×2 (08:28→22:07)
[2016-08-18] MEDS: METOPROLOL TARTRATE 50 MG TABLET PO SCH ×2 (08:29→22:08)
[2016-08-18] MEDS: FUROSEMIDE 40 MG TABLET PO SCH ×2 (08:29→22:08)
--- NOTE | 2016-08-18 08:40 | NUR ---
DR STINSON MAKING ROUNDS, RECEIVED NEW ORDERS, WILL CARRY OUT AND FOLLOW UP
--- NOTE | 2016-08-18 09:00 | NUR ---
per dr harper, cancel dialysis scheduled for today pt to discharge to dialysis center and go home from there, appointment time at dialysis center is 1130, will start discharge paper work.
[2016-08-18] MEDS ORDERED: SODIUM POLYSTYRENE SULFONATE 15 GM/60 ML UDBTL PO ONE (09:15)
[2016-08-18] MEDS ORDERED: VANCOMYCIN HCL 1,500 MG in NS 250 ML IV ONE (09:30)
--- NOTE | 2016-08-18 09:37 | NUR ---
DISCHARGE PLANNING DC to Dialysis Center. Spoke with Johana at [facility] [phone] who stated MD called and they have patient chair time scheduled today at 11:30am. Johana stated patient uses [facility] [phone] for transport from home to dialysis. BRANNON Gage spoke with patient who stated he has no family available to transport him to scheduled dialysis today. Called [facility] spoke with Marbella transport picker and sorter load and unload scheduled between 11-11:15am. Called [facility] [phone] spoke with Zulema at [facility] transport [phone] who will dispatch call to [facility] transport reservation#[phone]. Notified Marbella at [facility] and confirmed transport scheduled to picker and sorter load and unload patient. BRANNON Gage made aware. Addendum: 08/18/16 at 1021 by Elizabeth PINEDA Cancelled DC order. Called [facility] spoke with Johana who will cancel transport picker and sorter load and unload. Called [facility] spoke with Johana cancelled dialysis chair time for today.
--- NOTE | 2016-08-18 10:00 | NUR ---
DISCHARGE HELD PER DR SHANTELL MD STATED WBC ELEVATED, ADMINISTER ONE TIME DOSE ANTIBIOTIC AND MONITOR. PATIENT MADE AWARE AND VERBALIZED AGREEMENT, WILL CALL DIALYSIS AND RESCHEDULE.
--- NOTE | 2016-08-18 12:00 | NUR ---
ACCUCHECK 133. NO COVERAGE NEEDED PER SLIDING SCALE ALL NEEDS ATTENDED TO, COMMONLY USED ITEMS PLACED WITHIN REACH, PT STABLE, NO SOB OR DISTRESS NOTED, SAFETY MEASURES IN PLACE, WILL FOLLOW UP
[2016-08-18 12:44] VITALS: BP_SYST 142
--- NOTE | 2016-08-18 14:00 | NUR ---
ROUNDS PT LAYING IN BED, RESTING, EVEN RISE AND FALL OF CHEST NOTED, BREATHING UNLABORED, SAFETY MEASURES IN PLACE, CALL LIGHT WITHIN REACH, BED ALARM ON, WILL FOLLOW UP
--- NOTE | 2016-08-18 15:47 | NUR ---
DIALYSIS NURSE AT BEDSIDE PT AWAKE, ALERT AND ORIENTED, ABLE TO MAKE NEEDS KNOWN, NO S/S OF DISTRESS OR PAIN, SAFETY MEASURES IN PLACE, CALL LIGHT WITHIN REACH, WILL CONTINUE TO MONITOR
[2016-08-18 16:26] VITALS: BP_SYST 141
[2016-08-18] MEDS ORDERED: HEPARIN SODIUM, PORCINE 10,000 UNITS/ 10 ML VIAL MC ONE (16:45)
--- NOTE | 2016-08-18 17:39 | NUR ---
bhavin 161, pt refused insulin administration , because he not going to eat during dialysis, will follow up. dialysis nurse and family at bedside, safety measures in place, will continue to monitor
--- NOTE | 2016-08-18 17:50 | NUR ---
dr santos making rounds, pt assessed, no new order received, will continue to monitor
--- NOTE | 2016-08-18 18:30 | NUR ---
CLOSING NOTE PATIENT STILL RECEIVING DIALYSIS, VSS, NO C/O PAIN OR DISTRESS, IV TO RIGHT HAND INTACT SALINE LOCKED, ALL NEEDS ATTENDED TO THROUGH OUT SHIFT, SAFETY MEASURES MAINTAINED, DIALYSIS NURSE AND FAMILY AT BEDSIDE, SAFETY MEASURES IN PLACE, BED IN LOW POSITION AND LOCKED, CALL LIGHT WITHIN REACH, WILL GIVE REPORT TO FOLLOWING SHIFT.
[2016-08-18 19:50] VITALS: BP_SYST 147
--- NOTE | 2016-08-18 19:50 | NUR ---
INITIAL NOTES; HEMODIALYSIS JUST COMPLETED -Pt is a/ox4, resting in bed. Family is at bedside. Pt denies any pain,sob,or any acute distress. Saline kimberli of rt hand #22,patent, no s/s any infiltration after flushed w/ NS,drsg cdi. Drsg cdi of old Permacath removal of rt chest wall. New Permacath of left chest wall-drsg cdi. All safety measures in place. Encourages to use incentive spirometry 10x/hr while awakes, pt shows good teaching back. Discussed poc,all safety measures with pt and family, pt verbalized understanding. Call light w/in reach. Continue to monitor pt.
[2016-08-18] MEDS: MIRTAZAPINE 15 MG TABLET PO SCH (22:07)
--- NOTE | 2016-08-18 22:09 | NUR ---
ROUNDS;PAIN MEDICATION ADMINISTERED -Pt is c/o abdominal pain sharp, gave Dilaudid 2mg IVP. All safety measures in place. Call light w/in reach. Continue to monitor pt.
[2016-08-18 23:52] VITALS: BP_SYST 148
--- NOTE | 2016-08-19 00:30 | NUR ---
ROUNDS;BLOOD UXEES=515,NO SSI COVERAGE -Pt is resting. NO s/s any acute distress noted. All safety measures in place. Call light w/in reach. Continue to monitor pt.
--- NOTE | 2016-08-19 01:39 | NUR ---
ROUNDS; -Pt is resting. NO s/s any acute distress noted. All safety measures in place. Call light w/in reach. Continue to monitor pt.
[2016-08-19] MEDS: HYDROmorphone 2 MG/ML VIAL IVP PRN ×3 (02:57→12:20)
--- NOTE | 2016-08-19 02:58 | NUR ---
ROUNDS;PAIN MEDICATION ADMINISTERED -Pt is c/o abdominal pain sharp, gave Dilaudid 2mg IVP. All safety measures in place. Call light w/in reach. Continue to monitor pt.
--- NOTE | 2016-08-19 03:27 | NUR ---
ROUNDS; -Pt is resting. NO s/s any acute distress noted. All safety measures in place. Call light w/in reach. Continue to monitor pt.
[2016-08-19 03:45] VITALS: BP_SYST 150
[2016-08-19] MEDS: hydrALAZINE HCL 25 MG TABLET PO SCH ×2 (05:31→15:24)
[2016-08-19] MEDS: cloNIDine HCL 0.2 MG TABLET PO SCH ×2 (05:32→15:24)
--- NOTE | 2016-08-19 05:34 | NUR ---
ROUNDS;BLOOD RPSYW=185,NO SSI COVERAGE -Pt awakes, gave jello upon pt requested. Pt denies pain,sob,or any acute distress . All safety measures in place. Call light w/in reach. Continue to monitor pt.
--- NOTE | 2016-08-19 06:45 | NUR ---
CLOSING NOTES; -Pt is resting. No s/s any acute distress noted. Saline kimberli of rt f/a patent,drsg cdi. All safety measures in place. Call light w/in reach. Will endorse to oncoming nurse to continue care.
[2016-08-19 08:00] VITALS: BP_SYST 148
--- NOTE | 2016-08-19 08:00 | NUR ---
NOTE PT RESTING IN BED AND NOW SITTING UP IN BED TO EAT HIS BREAKFAST AT THIS TIME. NO SOB/RESP DISTRESS OR PAIN/DISCOMFORT NOTED AT THIS TIME. IV IN RIGHT FOREARM INTACT AND PATENT AT THIS TIME. PAIN MEDIATION TO BE GIVEN SCHEDULED AND REQUESTED. CALL LIGHT WITHIN REACH.
[2016-08-19] MEDS: BRIMONIDINE TARTRATE 0.2% 5 mL EYE DROPS OP SCH (09:21)
[2016-08-19] MEDS: CINACALCET HCL 30 MG TABLET PO SCH (09:21)
[2016-08-19] MEDS: VALSARTAN 160 MG TABLET (DIOVAN) PO SCH (09:21)
[2016-08-19] MEDS: METOPROLOL TARTRATE 50 MG TABLET PO SCH (09:21)
[2016-08-19] MEDS: PANTOPRAZOLE SODIUM 40 MG TAB PO SCH (09:22)
[2016-08-19] MEDS: GABAPENTIN 300 MG CAPSULE PO SCH ×2 (09:22→15:24)
[2016-08-19] MEDS: FUROSEMIDE 40 MG TABLET PO SCH (09:22)
[2016-08-19 12:00] VITALS: BP_SYST 142
--- NOTE | 2016-08-19 12:00 | NUR ---
NOTE PT RESTING IN BED. DENIES ANY NEEDS AT THIS TIME. PT RESTS IN BED AND ONLY CALLS FOR PAIN MEDICATION IVP OR FOR ANY NEEDS HE HAS AT THIS TIME. CALL LIGHT WITHIN REACH.
[2016-08-19] MEDS ORDERED: cefTRIAXone 1 GM IVPB PREMIX 50 ML IV ONE (14:45)
[2016-08-19] MEDS ORDERED: CEPH250C PO (14:45)
[2016-08-19] MEDS ORDERED: VANCOMYCIN HCL 1 GM/NS PREMIX 250 ML IV ONE ×2 (15:30→18:15)
--- NOTE | 2016-08-19 16:00 | NUR ---
NOTE DR MAXWELL AND DR PINEDA CAME TO SEE PT AFTER ASSESSMENT WAS COMPLETED, PT WAS GIVEN VERBAL DISCHARGE INSTRUCTIONS AND QUESTIONS/CONCERNS WERE ANSWERED AT THIS TIME. NO NEEDS NOTED. CALL LIGHT WITHIN REACH. PT'S ORDERS FOR IVPB ANTIBIOTICS ARE BEING GIVEN. CALL LIGHT WITHIN REACH.
[2016-08-19 16:30] VITALS: BP_SYST 128
[2016-08-19] MEDS: HYDROmorphone 1 MG INJ. 1 MG/ML AMPUL IVP PRN ×2 (16:32→21:32)
[2016-08-19] MEDS ORDERED: VANCOMYCIN HCL 1000 MG/VIAL IV ONE (18:18)
--- NOTE | 2016-08-19 18:50 | NUR ---
NOTE PT SLEEPING AT THIS TIME. VANCO IVPB RUNNING AT THIS TIME. PHARMACY CLOSED, RN MIXED THE MEDICATION AFTER BEING GIVEN BY BRAILLE TYPIST. NO SOB/RESP DISTRESS OR PAIN/DISCOMFORT NOTED AT THIS TIME. IV IN RIGHT HAND INTACT AND PATENT AT THIS TIME. NO NEEDS NOTED. CALL LIGHT WITHIN REACH.
--- NOTE | 2016-08-19 19:00 | NUR ---
NOTE PT SITTING UP IN BED EATING HIS DINNER AT THIS TIME. NO NEEDS NOTED. CALL LIGHT WITHIN REACH.
--- NOTE | 2016-08-19 19:05 | NUR ---
OPENING NOTES RECEIVED REPORT AT BEDSIDE. PATIENT ALERT, ORIENTED X4. PATIENT IS BLIND. AWAKE AND WATCHING TELEVISION. NO ACUTE S/S OF DISTRESS NOTED. IV PATENT AND INFUSING WITH NO SIGNS OF INFILTRATION. PATIENT STATES HE HAS CHRONIC PAIN 8. PT EDUCATED THAT HIS NEXT DOSE OF PAIN MEDS ARE NOT DUE, PATIENT VERBALIZED UNDERSTANDING. FALL PRECAUTIONS IN PLACE, CALL LIGHT WITHIN REACH.
--- NOTE | 2016-08-19 21:00 | NUR ---
PAIN PROVIDED PAIN MEDICATION FOR PAIN 10/27. PATIENT STABLE.
[2016-08-19 21:52] VITALS: BP_SYST 129
[2016-08-19 23:00] VITALS: BP_SYST 129
--- NOTE | 2016-08-19 23:28 | NUR ---
D/C Patient Patient given medication reconciliation form and D/C instructions. Exit Care provided. Patient verbalized understanding. MD discussed with patient the results and treatment provided. Ambulatory in wheelchair for discharge to home. Patient in stable condition, ID band removed. IV catheter removed, intact and dressing applied, no active bleeding. New prescriptions given to the patient. Pt. and family educated on new medications and provided with literature. pt. verbalized understanding. Patient educated on pain management. All belongings sent with patient.
== END 2016-08-19 23:30 | disposition home or self-care (01) | DRG 314 ==
LOC: SED 08:54 → STU 10:21 → SMU 08-14 14:04
PROVIDERS: ADMIT Internal Medicine Hospice and Palliative Medicine; ATTEND Internal Medicine Hospice and Palliative Medicine
PROC: 5A1D00Z (ICD-10-PCS; 2016-08-12)
PROC: 02PYX3Z Removal of Infusion Device from Great Vessel, External Approach (ICD-10-PCS; principal; 2016-08-12 18:30)
PROC: 06H033Z Insertion of Infusion Device into Inferior Vena Cava, Percutaneous Approach (ICD-10-PCS; 2016-08-16)
PROC: B549ZZA Ultrasonography of Inferior Vena Cava, Guidance (ICD-10-PCS; 2016-08-16)
PROC: B5191ZA Fluoroscopy of Inferior Vena Cava using Low Osmolar Contrast, Guidance (ICD-10-PCS; 2016-08-16)
DX: T80.211A Bloodstream infection due to central venous catheter, initial encounter (principal); N18.6 End stage renal disease; A41.9 Sepsis, unspecified organism; I12.0 Hypertensive chronic kidney disease with stage 5 chronic kidney disease or end stage renal disease; E44.1 Mild protein-calorie malnutrition; K31.84 Gastroparesis; E11.22 Type 2 diabetes mellitus with diabetic chronic kidney disease; E11.43 Type 2 diabetes mellitus with diabetic autonomic (poly)neuropathy; Y84.8 Other medical procedures as the cause of abnormal reaction of the patient, or of later complication, without mention of misadventure at the time of the procedure; D63.8 Anemia in other chronic diseases classified elsewhere; E66.9 Obesity, unspecified; F32.9 Major depressive disorder, single episode, unspecified; F41.1 Generalized anxiety disorder; H54.0 Blindness, both eyes; Y83.8 Other surgical procedures as the cause of abnormal reaction of the patient, or of later complication, without mention of misadventure at the time of the procedure; Z68.33 Body mass index [BMI] 33.0-33.9, adult; Z99.2 Dependence on renal dialysis; Z88.8 Allergy status to other drugs, medicaments and biological substances; Z79.899 Other long term (current) drug therapy
CPT/HCPCS: 36415; 71010; 76000; 80048; 80053; 80202-TC; 82962; 83690-TC; 84100-TC; 85025; 85610-TC; 87070-TC; 87081; 90935; 90937; 96374; 96375; 99285; C1750; C1769; C1894; J0690; J0696; J0885; J1170; J1644; J1815; J2001; J2250; J2405; J2704; J2765; J3370; J3490; J7030; J7042; J7050

== ENCOUNTER 2016-08-23 02:02 | Emergency (ER) | payer OTHER, MEDICAID ==
[~2016-08-23] VITALS: Ht 177.8 cm; Wt 106.6 kg
[~2016-08-23 02:02] MED LIST changes: +CEPH250C PO
[2016-08-23 02:15] VITALS: BP_SYST 182
--- NOTE | 2016-08-23 02:15 | NUR ---
Patient to ER bed 5 to gown for evaluation. Side rails up. Report given to BRANNON BARNES.
--- NOTE | 2016-08-23 02:20 | NUR ---
Pt states that he has been having lower back pain since 2099 and the pain has been getting worse. Denies any trauma to the area. Will continue to monitor. No other injuires or complaints mentioned/noted. No distress noted.
--- NOTE | 2016-08-23 02:57 | NUR ---
ER Dr. Davalos at bedside examining patient.
[2016-08-23] MEDS ORDERED: DIPHENHYDRAMINE INJ 50 MG/ML VIAL IM ONE (03:45)
[2016-08-23] MEDS ORDERED: HYDROmorphone 1 MG INJ. 1 MG/ML AMPUL IM ONE ×2 (03:45→04:45)
[2016-08-23 05:06] VITALS: BP_SYST 144
--- NOTE | 2016-08-23 05:06 | NUR ---
Patient given written and verbal discharge instructions and verbalizes understanding. ER MD discussed with patient the results and treatment provided. Patient in stable condition. ID arm band removed. Rx of Ibuprofen given. Patient educated on pain management and to follow up with PMD. Pain Scale 0/10. Opportunity for questions provided and answered.
== END 2016-08-23 05:06 | disposition home or self-care (01) ==
LOC: SED 02:02
DX: S39.012A Strain of muscle, fascia and tendon of lower back, initial encounter (principal); I12.0 Hypertensive chronic kidney disease with stage 5 chronic kidney disease or end stage renal disease; E11.22 Type 2 diabetes mellitus with diabetic chronic kidney disease; N18.6 End stage renal disease; H54.8 Legal blindness, as defined in USA; Z99.2 Dependence on renal dialysis; Z79.899 Other long term (current) drug therapy; X58.XXXA Exposure to other specified factors, initial encounter; Y93.89 Activity, other specified; Y92.89 Other specified places as the place of occurrence of the external cause; Y99.8 Other external cause status; Z88.8 Allergy status to other drugs, medicaments and biological substances
CPT/HCPCS: 72072; 72100; 96372; 99284; J1170; J1200

== ENCOUNTER 2016-08-23 20:35 | Emergency (ER) | payer OTHER, MEDICAID ==
[2016-08-23 20:45] VITALS: BP_SYST 166
[2016-08-23] MEDS ORDERED: HYDROmorphone 1 MG INJ. 1 MG/ML AMPUL IM ONE (21:15)
[2016-08-23] MEDS ORDERED: PROMETHAZINE HCL 25 MG/ML AMP IVP ONE (21:15)
[2016-08-23 21:32] LABS: BASOPHILS # (AUTO) 0.1 K/uL (0.0-0.2); BASOPHILS % (AUTO) 0.4 % (0.0-2.0); EOSINOPHILS # (AUTO) 0.2 K/uL (0.0-0.4); EOSINOPHILS % (AUTO) 1.8 % (0.0-4.0); HEMATOCRIT 25.5 % (36-54); HEMOGLOBIN 8.8 g/dL (14.0-18.0); LYMPHOCYTES # (AUTO) 2.2 K/uL (1.0-5.5); LYMPHOCYTES % (AUTO) 15.8 % (20.5-51.5); MEAN CORPUSCULAR HEMOGLOBIN 32 pg (27-31); MEAN CORPUSCULAR HGB CONC 35 % (32-36); MEAN CORPUSCULAR VOLUME 92 fL (79.0-98.0); MONOCYTES # (AUTO) 0.9 K/uL (0.0-1.0); MONOCYTES % (AUTO) 6.8 % (1.7-9.3); NEUTROPHILS # (AUTO) 10.4 K/uL (1.8-7.7); NEUTROPHILS % (AUTO) 75.2 % (40.0-70.0); PLATELET COUNT (AUTO) 315 K/uL (130-430); RED BLOOD CELL COUNT(AUTO) 2.77 MIL/uL (4.2-6.2); RED CELL DISTRIBUTION WIDTH 14.1 % (9.0-15.0); WHITE BLOOD COUNT (AUTO) 13.8 K/uL (4.8-10.8)
[2016-08-23 21:44] LABS: CALCIUM 9.3 mg/dL (8.4-11.0); POTASSIUM 5.6 mmol/L (3.5-5.1)
[2016-08-23 21:49] LABS: ALBUMIN 3.7 g/dL (3.4-4.8); TOTAL BILIRUBIN 0.4 mg/dL (0.0-1.0); TOTAL PROTEIN, SERUM 7.7 g/dL (6.4-8.3)
[2016-08-23 21:53] LABS: CREATININE 9.17 mg/dL (0.55-1.30)
[2016-08-23] MEDS ORDERED: cloNIDine HCL 0.1 MG TABLET PO ONE (22:00)
[2016-08-23] MEDS ORDERED: HYDROmorphone 1 MG INJ. 1 MG/ML AMPUL IVP ONE (22:30)
[2016-08-23 23:05] VITALS: BP_SYST 187
== END 2016-08-23 23:05 | disposition home or self-care (01) ==
LOC: SED 20:39
DX: G89.29 Other chronic pain (principal); M54.5 Low back pain; I12.0 Hypertensive chronic kidney disease with stage 5 chronic kidney disease or end stage renal disease; E11.22 Type 2 diabetes mellitus with diabetic chronic kidney disease; N18.6 End stage renal disease; H54.0 Blindness, both eyes; E11.43 Type 2 diabetes mellitus with diabetic autonomic (poly)neuropathy; K31.84 Gastroparesis; Z99.2 Dependence on renal dialysis; Z88.8 Allergy status to other drugs, medicaments and biological substances; Z76.5 Malingerer [conscious simulation]
CPT/HCPCS: 36415; 80053; 85025; 96374; 96375; 96376; 99284; J1170; J2550

== ENCOUNTER 2016-08-27 23:43 | Emergency (ER) | payer OTHER, MEDICAID ==
[~2016-08-27] VITALS: Ht 177.8 cm; Wt 104.3 kg
[2016-08-27 23:43] VITALS: BP_SYST 200
[2016-08-28] MEDS ORDERED: HYDROmorphone 1 MG INJ. 1 MG/ML AMPUL IVP ONE ×2 (00:30→02:30)
[2016-08-28] MEDS ORDERED: ONDANSETRON HCL 4 MG/2 ML VIAL IVP ONE (00:30)
[2016-08-28 00:52] LABS: BASOPHILS % (AUTO) 0.5 % (0.0-2.0); EOSINOPHILS # (AUTO) 0.2 K/uL (0.0-0.4); EOSINOPHILS % (AUTO) 1.8 % (0.0-4.0); HEMATOCRIT 25.5 % (36-54); HEMOGLOBIN 8.6 g/dL (14.0-18.0); LYMPHOCYTES % (AUTO) 20.6 % (20.5-51.5); MEAN CORPUSCULAR HEMOGLOBIN 31 pg (27-31); MEAN CORPUSCULAR HGB CONC 34 % (32-36); MEAN CORPUSCULAR VOLUME 93 fL (79.0-98.0); MONOCYTES # (AUTO) 0.6 K/uL (0.0-1.0); MONOCYTES % (AUTO) 6.4 % (1.7-9.3); NEUTROPHILS # (AUTO) 6.9 K/uL (1.8-7.7); NEUTROPHILS % (AUTO) 70.7 % (40.0-70.0); PLATELET COUNT (AUTO) 300 K/uL (130-430); RED BLOOD CELL COUNT(AUTO) 2.74 MIL/uL (4.2-6.2); RED CELL DISTRIBUTION WIDTH 14.4 % (9.0-15.0); WHITE BLOOD COUNT (AUTO) 9.7 K/uL (4.8-10.8)
[2016-08-28 01:15] LABS: CALCIUM 9.1 mg/dL (8.4-11.0)
[2016-08-28 01:17] LABS: ALBUMIN 3.6 g/dL (3.4-4.8); TOTAL BILIRUBIN 0.4 mg/dL (0.0-1.0); TOTAL PROTEIN, SERUM 7.5 g/dL (6.4-8.3)
[2016-08-28 01:25] LABS: CREATININE 8.65 mg/dL (0.55-1.30)
[2016-08-28] MEDS ORDERED: hydrALAZINE HCL 20 MG/ML VIAL IVP ONE (02:15)
[2016-08-28 04:03] VITALS: BP_SYST 164
== END 2016-08-28 04:03 | disposition home or self-care (01) ==
LOC: SED 23:43
DX: R10.13 Epigastric pain (principal); R10.31 Right lower quadrant pain; I10 Essential (primary) hypertension; E11.9 Type 2 diabetes mellitus without complications; H54.0 Blindness, both eyes; R51 Headache; Z88.8 Allergy status to other drugs, medicaments and biological substances; Z99.2 Dependence on renal dialysis
CPT/HCPCS: 36415; 70450; 74176; 80053; 82150; 83690; 84484; 85025; 93005; 96374; 96375; 96376; 99285; J0360; J1170; J2405

== ENCOUNTER 2016-08-29 20:30 | Emergency (ER) | payer OTHER, MEDICAID ==
[~2016-08-29] VITALS: Ht 177.8 cm; Wt 102.1 kg
[2016-08-29 21:00] VITALS: BP_SYST 154
[2016-08-29] MEDS ORDERED: HYDROmorphone 2 MG/ML VIAL IVP ONE (21:15)
[2016-08-29] MEDS ORDERED: ONDANSETRON HCL 4 MG/2 ML VIAL IVP ONE (21:30)
[2016-08-29 21:36] LABS: BASOPHILS % (AUTO) 0.6 % (0.0-2.0); EOSINOPHILS # (AUTO) 0.1 K/uL (0.0-0.4); EOSINOPHILS % (AUTO) 0.8 % (0.0-4.0); HEMATOCRIT 26.5 % (36-54); HEMOGLOBIN 8.9 g/dL (14.0-18.0); LYMPHOCYTES # (AUTO) 1.8 K/uL (1.0-5.5); LYMPHOCYTES % (AUTO) 22.6 % (20.5-51.5); MEAN CORPUSCULAR HEMOGLOBIN 31 pg (27-31); MEAN CORPUSCULAR HGB CONC 34 % (32-36); MEAN CORPUSCULAR VOLUME 92 fL (79.0-98.0); MONOCYTES # (AUTO) 0.5 K/uL (0.0-1.0); MONOCYTES % (AUTO) 6.6 % (1.7-9.3); NEUTROPHILS # (AUTO) 5.5 K/uL (1.8-7.7); NEUTROPHILS % (AUTO) 69.4 % (40.0-70.0); PLATELET COUNT (AUTO) 317 K/uL (130-430); RED BLOOD CELL COUNT(AUTO) 2.87 MIL/uL (4.2-6.2); RED CELL DISTRIBUTION WIDTH 14.2 % (9.0-15.0); WHITE BLOOD COUNT (AUTO) 7.9 K/uL (4.8-10.8)
[2016-08-29 21:45] LABS: CALCIUM 9.4 mg/dL (8.4-11.0); CREATININE 6.36 mg/dL (0.55-1.30); POTASSIUM 4.7 mmol/L (3.5-5.1)
[2016-08-29 21:54] LABS: ALBUMIN 3.6 g/dL (3.4-4.8); TOTAL BILIRUBIN 0.4 mg/dL (0.0-1.0); TOTAL PROTEIN, SERUM 7.4 g/dL (6.4-8.3)
[2016-08-29 22:01] LABS: PROTHROMBIN TIME 10.5 SECS (9.5-12.5)
[2016-08-29] MEDS ORDERED: HYDROmorphone 1 MG INJ. 1 MG/ML AMPUL IVP ONE (22:30)
[2016-08-29 23:06] VITALS: BP_SYST 174
== END 2016-08-29 23:06 | disposition home or self-care (01) ==
LOC: SED 20:30
DX: E11.43 Type 2 diabetes mellitus with diabetic autonomic (poly)neuropathy (principal); K31.84 Gastroparesis; H54.0 Blindness, both eyes; Z99.2 Dependence on renal dialysis; Z88.8 Allergy status to other drugs, medicaments and biological substances; Z79.899 Other long term (current) drug therapy
CPT/HCPCS: 36415; 80053; 82150; 83690; 84484; 85025; 85610; 93005; 96374; 96375; 96376; 99285; J1170 ×2; J2405

== ENCOUNTER 2016-08-31 09:07 | Inpatient (IN) | payer OTHER, MEDICAID ==
[~2016-08-31] VITALS: Ht 177.8 cm; Wt 105.3 kg
[2016-08-31 09:07] VITALS: BP_SYST 199
[2016-08-31] MEDS ORDERED: NACL 0.9% 1,000 ML IV ONE (09:17)
[2016-08-31] MEDS ORDERED: HYDROmorphone 1 MG INJ. 1 MG/ML AMPUL IVP ONE ×3 (09:30→11:00)
[2016-08-31] MEDS ORDERED: cloNIDine HCL 0.1 MG TABLET PO ONE (09:30)
[2016-08-31] MEDS ORDERED: ONDANSETRON HCL 4 MG/2 ML VIAL IVP ONE (09:30)
[2016-08-31 10:32] LABS: CALCIUM 9.8 mg/dL (8.4-11.0); POTASSIUM 4.9 mmol/L (3.5-5.1)
[2016-08-31 10:34] LABS: BASOPHILS # (AUTO) 0.1 K/uL (0.0-0.2); BASOPHILS % (AUTO) 0.7 % (0.0-2.0); EOSINOPHILS # (AUTO) 0.1 K/uL (0.0-0.4); HEMATOCRIT 27.4 % (36-54); HEMOGLOBIN 9.4 g/dL (14.0-18.0); LYMPHOCYTES # (AUTO) 2.7 K/uL (1.0-5.5); LYMPHOCYTES % (AUTO) 27.8 % (20.5-51.5); MEAN CORPUSCULAR HEMOGLOBIN 32 pg (27-31); MEAN CORPUSCULAR HGB CONC 34 % (32-36); MEAN CORPUSCULAR VOLUME 93 fL (79.0-98.0); MONOCYTES # (AUTO) 0.7 K/uL (0.0-1.0); MONOCYTES % (AUTO) 7.1 % (1.7-9.3); NEUTROPHILS % (AUTO) 63.4 % (40.0-70.0); PLATELET COUNT (AUTO) 305 K/uL (130-430); RED BLOOD CELL COUNT(AUTO) 2.94 MIL/uL (4.2-6.2); RED CELL DISTRIBUTION WIDTH 14.2 % (9.0-15.0); WHITE BLOOD COUNT (AUTO) 9.6 K/uL (4.8-10.8)
[2016-08-31 10:40] LABS: ALBUMIN 3.4 g/dL (3.4-4.8); TOTAL BILIRUBIN 0.4 mg/dL (0.0-1.0); TOTAL PROTEIN, SERUM 7.1 g/dL (6.4-8.3)
[2016-08-31 10:47] LABS: CREATININE 9.11 mg/dL (0.55-1.30)
[2016-08-31 11:52] VITALS: BP_SYST 203
[2016-08-31] MEDS ORDERED: HEPARIN SODIUM,PORCINE 5000 UNITS/ML VIAL IVP ONE (12:45)
[2016-08-31] MEDS ORDERED: HYDROmorphone 1 MG INJ. 1 MG/ML AMPUL IVP PRN (14:15)
[2016-08-31] MEDS ORDERED: DEXTROSE 50% JECT 50 ML DISP.SYRIN IVP PRN (14:15)
[2016-08-31] MEDS ORDERED: ACETAMINOPHEN 325 MG TABLET PO PRN (14:15)
[2016-08-31] MEDS: HYDROmorphone 2 MG/ML VIAL IVP PRN ×3 (14:40→23:20)
[2016-08-31] MEDS ORDERED: hydrALAZINE HCL 25 MG TABLET PO ONE (17:30)
[2016-08-31] MEDS: ONDANSETRON HCL 4 MG/2 ML VIAL IVP PRN (17:32)
[2016-08-31 18:50] VITALS: BP_SYST 170
[2016-08-31 20:00] VITALS: BP_SYST 193
[2016-08-31] MEDS: VALSARTAN 160 MG TABLET (DIOVAN) PO SCH (20:16)
[2016-08-31] MEDS: BRIMONIDINE TARTRATE 0.2% 5 mL EYE DROPS OP SCH (20:16)
[2016-08-31] MEDS: METHOCARBAMOL 500 MG TABLET PO SCH (20:16)
[2016-08-31] MEDS: GABAPENTIN 300 MG CAPSULE PO SCH (20:16)
[2016-08-31] MEDS: FUROSEMIDE 40 MG TABLET PO SCH (20:17)
[2016-08-31] MEDS: METOPROLOL TARTRATE 50 MG TABLET PO SCH (20:18)
[2016-08-31] MEDS: CEPHALEXIN 250 MG CAPSULE PO SCH (20:18)
[2016-08-31] MEDS: cloNIDine HCL 0.2 MG TABLET PO SCH (21:31)
[2016-08-31] MEDS: hydrALAZINE HCL 25 MG TABLET PO SCH (21:32)
[2016-09-01] VITALS (8 sets, daily range): BP systolic 120–182
[2016-09-01] MEDS: ONDANSETRON HCL 4 MG/2 ML VIAL IVP PRN ×3 (03:39→20:21)
[2016-09-01] MEDS: HYDROmorphone 2 MG/ML VIAL IVP PRN ×5 (03:39→20:21)
[2016-09-01] MEDS: hydrALAZINE HCL 25 MG TABLET PO SCH ×3 (05:13→22:23)
[2016-09-01] MEDS: cloNIDine HCL 0.2 MG TABLET PO SCH ×3 (05:14→22:22)
[2016-09-01] MEDS: CEPHALEXIN 250 MG CAPSULE PO SCH ×2 (09:00→21:03)
[2016-09-01] MEDS ORDERED: LABETALOL HCL 100 MG TABLET PO SCH (09:00)
[2016-09-01] MEDS ORDERED: CINACALCET HCL 30 MG TABLET PO SCH (09:00)
[2016-09-01] MEDS: CINACALCET HCL 30 MG TABLET PO SCH (09:02)
[2016-09-01] MEDS: FUROSEMIDE 40 MG TABLET PO SCH ×2 (09:03→21:05)
[2016-09-01] MEDS: PANTOPRAZOLE SODIUM 40 MG TAB PO SCH (09:03)
[2016-09-01] MEDS: GABAPENTIN 300 MG CAPSULE PO SCH ×3 (09:03→21:04)
[2016-09-01] MEDS: METOPROLOL TARTRATE 50 MG TABLET PO SCH ×2 (09:04→21:04)
[2016-09-01] MEDS: VALSARTAN 160 MG TABLET (DIOVAN) PO SCH ×2 (09:04→21:06)
[2016-09-01] MEDS: BRIMONIDINE TARTRATE 0.2% 5 mL EYE DROPS OP SCH ×2 (09:14→21:03)
[2016-09-01] MEDS: METHOCARBAMOL 500 MG TABLET PO SCH ×2 (12:19→22:23)
[2016-09-01] MEDS: INSULIN REGULAR, HUMAN 100 UNITS/ML, 10 ML VIAL (novoLIN R) SUBCUT PRN (18:07)
[2016-09-02 00:26] VITALS: BP_SYST 128
[2016-09-02] MEDS: HYDROmorphone 2 MG/ML VIAL IVP PRN ×5 (00:26→21:27)
[2016-09-02 04:32] VITALS: BP_SYST 118
[2016-09-02] MEDS: cloNIDine HCL 0.2 MG TABLET PO SCH ×3 (05:58→21:43)
[2016-09-02] MEDS: hydrALAZINE HCL 25 MG TABLET PO SCH ×3 (05:58→21:42)
[2016-09-02] MEDS: ONDANSETRON HCL 4 MG/2 ML VIAL IVP PRN ×2 (05:59→21:25)
[2016-09-02] MEDS: METOPROLOL TARTRATE 50 MG TABLET PO SCH ×2 (09:00→21:41)
[2016-09-02] MEDS: FUROSEMIDE 40 MG TABLET PO SCH ×2 (09:00→21:41)
[2016-09-02] MEDS: VALSARTAN 160 MG TABLET (DIOVAN) PO SCH ×2 (09:00→21:42)
[2016-09-02] MEDS: BRIMONIDINE TARTRATE 0.2% 5 mL EYE DROPS OP SCH ×2 (10:15→21:40)
[2016-09-02] MEDS: CEPHALEXIN 250 MG CAPSULE PO SCH ×2 (10:15→21:40)
[2016-09-02] MEDS: PANTOPRAZOLE SODIUM 40 MG TAB PO SCH (10:16)
[2016-09-02] MEDS: CINACALCET HCL 30 MG TABLET PO SCH (10:16)
[2016-09-02] MEDS: GABAPENTIN 300 MG CAPSULE PO SCH ×3 (10:16→21:41)
[2016-09-02] MEDS: METHOCARBAMOL 500 MG TABLET PO SCH ×2 (10:23→21:41)
[2016-09-02] MEDS: INSULIN REGULAR, HUMAN 100 UNITS/ML, 10 ML VIAL (novoLIN R) SUBCUT PRN ×2 (12:30→17:56)
[2016-09-02] MEDS ORDERED: HEPARIN SODIUM, PORCINE 10,000 UNITS/ 10 ML VIAL MC ONE (13:45)
[2016-09-02] MEDS ORDERED: COMMUNICATION ORDER XX ONE (13:45)
[2016-09-02 14:40] VITALS: BP_SYST 118
[2016-09-02 17:10] VITALS: BP_SYST 141
[2016-09-02 21:00] VITALS: BP_SYST 136
[2016-09-03 00:28] VITALS: BP_SYST 144
[2016-09-03] MEDS: HYDROmorphone 2 MG/ML VIAL IVP PRN ×5 (01:41→17:35)
[2016-09-03 04:25] VITALS: BP_SYST 146
[2016-09-03] MEDS: hydrALAZINE HCL 25 MG TABLET PO SCH (05:54)
[2016-09-03] MEDS: cloNIDine HCL 0.2 MG TABLET PO SCH ×2 (05:55→13:37)
[2016-09-03] MEDS: ONDANSETRON HCL 4 MG/2 ML VIAL IVP PRN ×2 (05:55→13:37)
[2016-09-03 06:37] LABS: BASOPHILS # (AUTO) 0.1 K/uL (0.0-0.2); BASOPHILS % (AUTO) 0.6 % (0.0-2.0); EOSINOPHILS # (AUTO) 0.1 K/uL (0.0-0.4); HEMATOCRIT 25.5 % (36-54); HEMOGLOBIN 8.9 g/dL (14.0-18.0); LYMPHOCYTES % (AUTO) 21.6 % (20.5-51.5); MEAN CORPUSCULAR HEMOGLOBIN 33 pg (27-31); MEAN CORPUSCULAR HGB CONC 35 % (32-36); MEAN CORPUSCULAR VOLUME 93 fL (79.0-98.0); MONOCYTES # (AUTO) 1.1 K/uL (0.0-1.0); NEUTROPHILS # (AUTO) 9.7 K/uL (1.8-7.7); NEUTROPHILS % (AUTO) 68.8 % (40.0-70.0); PLATELET COUNT (AUTO) 290 K/uL (130-430); RED BLOOD CELL COUNT(AUTO) 2.73 MIL/uL (4.2-6.2); RED CELL DISTRIBUTION WIDTH 14.4 % (9.0-15.0)
[2016-09-03 06:44] LABS: ALBUMIN 3.1 g/dL (3.4-4.8); CALCIUM 8.1 mg/dL (8.4-11.0); PHOSPHORUS 6.3 mg/dL (2.7-4.5); POTASSIUM 4.1 mmol/L (3.5-5.1); TOTAL BILIRUBIN 0.5 mg/dL (0.0-1.0); TOTAL PROTEIN, SERUM 6.7 g/dL (6.4-8.3)
[2016-09-03 06:54] LABS: CREATININE 7.87 mg/dL (0.55-1.30)
[2016-09-03 08:00] VITALS: BP_SYST 185
[2016-09-03] MEDS: BRIMONIDINE TARTRATE 0.2% 5 mL EYE DROPS OP SCH (09:13)
[2016-09-03] MEDS: METHOCARBAMOL 500 MG TABLET PO SCH (09:13)
[2016-09-03] MEDS: CEPHALEXIN 250 MG CAPSULE PO SCH (09:13)
[2016-09-03] MEDS: PANTOPRAZOLE SODIUM 40 MG TAB PO SCH (09:14)
[2016-09-03] MEDS: METOPROLOL TARTRATE 50 MG TABLET PO SCH (09:14)
[2016-09-03] MEDS: VALSARTAN 160 MG TABLET (DIOVAN) PO SCH (09:14)
[2016-09-03] MEDS: FUROSEMIDE 40 MG TABLET PO SCH (09:15)
[2016-09-03] MEDS: GABAPENTIN 300 MG CAPSULE PO SCH ×2 (09:15→15:55)
[2016-09-03] MEDS: CINACALCET HCL 30 MG TABLET PO SCH (09:19)
[2016-09-03 12:45] VITALS: BP_SYST 169
[2016-09-03] MEDS ORDERED: DEXTROSE 50% JECT 50 ML DISP.SYRIN IVP PRN (12:45)
[2016-09-03] MEDS ORDERED: cloNIDine HCL 0.1 MG TABLET PO ONE (12:45)
[2016-09-03] MEDS ORDERED: hydrALAZINE HCL 25 MG TABLET PO SCH (14:00)
[2016-09-03 14:09] LABS: BILIRUBIN,URINE NEGATIVE (NEGATIVE); CLARITY/URINE CLEAR (CLEAR); COLOR,URINE YELLOW (YELLOW); GLUCOSE,URINE 1+ (NEGATIVE); KETONES,URINE NEGATIVE (NEGATIVE); LEUKOCYTE ESTERASE ,URINE NEGATIVE (NEGATIVE); NITRITE, URINE NEGATIVE (NEGATIVE); PH,URINE 7.5 (5.0-8.0); PROTEIN URINE 3+ (NEGATIVE); UROBILINOGEN,URINE 0.2 (0.2-1.0)
[2016-09-03 14:32] LABS: BLOOD, URINE TRACE (NEGATIVE)
[2016-09-03 14:33] LABS: BACTERIA,URINE FEW /HPF (None Seen); MUCUS,URINE None Seen /LPF (None Seen); RBC,URINE 0-3 /HPF (0-3); WBC,URINE 0-3 /HPF (0-3)
[2016-09-03 16:25] VITALS: BP_SYST 150
[2016-09-03] MEDS ORDERED: HYDR100T25 PO (18:05)
[2016-09-03 18:15] VITALS: BP_SYST 150
== END 2016-09-03 18:45 | disposition home or self-care (01) | DRG 73 ==
LOC: SED 09:07 → STU 10:59 → SMU 09-02 13:36
PROVIDERS: ADMIT Internal Medicine Hospice and Palliative Medicine; ATTEND Internal Medicine Hospice and Palliative Medicine
PROC: 5A1D60Z (ICD-10-PCS; principal; 2016-08-31)
DX: E10.43 Type 1 diabetes mellitus with diabetic autonomic (poly)neuropathy (principal); N18.6 End stage renal disease; I12.0 Hypertensive chronic kidney disease with stage 5 chronic kidney disease or end stage renal disease; K31.84 Gastroparesis; E10.22 Type 1 diabetes mellitus with diabetic chronic kidney disease; D63.1 Anemia in chronic kidney disease; I16.0 Hypertensive urgency; E10.39 Type 1 diabetes mellitus with other diabetic ophthalmic complication; Z99.2 Dependence on renal dialysis; Z88.8 Allergy status to other drugs, medicaments and biological substances
CPT/HCPCS: 36415; 71020-TC; 80053; 81000-TC; 82962; 83690-TC; 84100-TC; 85025; 87081; 90935; 90937; 96361; 96374; 96375; 96376; 99285; J1170; J1644; J1815; J2405; J7030

== ENCOUNTER 2016-09-12 03:17 | Inpatient (IN) | payer OTHER, MEDICAID ==
[~2016-09-12] VITALS: Ht 177.8 cm; Wt 109.8 kg
[2016-09-12 03:17] VITALS: BP_SYST 233
[~2016-09-12 03:17] MED LIST changes: -HYDR-4039 PO; +HYDR100T25 PO
[2016-09-12] MEDS ORDERED: HYDROmorphone 2 MG/ML VIAL IVP ONE (05:15)
[2016-09-12] MEDS ORDERED: ONDANSETRON HCL 4 MG/2 ML VIAL IVP ONE ×2 (05:15→10:30)
[2016-09-12] MEDS ORDERED: LABETALOL 100 MG/ 20ML VIAL IVP ONE (05:15)
[2016-09-12 05:46] LABS: BASOPHILS # (AUTO) 0.1 K/uL (0.0-0.2); BASOPHILS % (AUTO) 0.5 % (0.0-2.0); EOSINOPHILS # (AUTO) 0.2 K/uL (0.0-0.4); EOSINOPHILS % (AUTO) 1.8 % (0.0-4.0); HEMATOCRIT 26.8 % (36-54); HEMOGLOBIN 8.8 g/dL (14.0-18.0); LYMPHOCYTES # (AUTO) 2.2 K/uL (1.0-5.5); LYMPHOCYTES % (AUTO) 18.1 % (20.5-51.5); MEAN CORPUSCULAR HEMOGLOBIN 31 pg (27-31); MEAN CORPUSCULAR HGB CONC 33 % (32-36); MEAN CORPUSCULAR VOLUME 95 fL (79.0-98.0); MONOCYTES # (AUTO) 0.7 K/uL (0.0-1.0); MONOCYTES % (AUTO) 5.5 % (1.7-9.3); NEUTROPHILS # (AUTO) 8.9 K/uL (1.8-7.7); NEUTROPHILS % (AUTO) 74.1 % (40.0-70.0); PLATELET COUNT (AUTO) 265 K/uL (130-430); RED BLOOD CELL COUNT(AUTO) 2.83 MIL/uL (4.2-6.2); RED CELL DISTRIBUTION WIDTH 13.6 % (9.0-15.0); WHITE BLOOD COUNT (AUTO) 12.1 K/uL (4.8-10.8)
[2016-09-12 05:59] LABS: CALCIUM 8.8 mg/dL (8.4-11.0); POTASSIUM 5.8 mmol/L (3.5-5.1)
[2016-09-12 06:04] LABS: CREATININE 11.94 mg/dL (0.55-1.30)
[2016-09-12 06:42] LABS: ALBUMIN 3.5 g/dL (3.4-4.8); TOTAL BILIRUBIN 0.4 mg/dL (0.0-1.0)
[2016-09-12] MEDS ORDERED: CALCIUM GLUCONATE 1 GM/10 ML VIAL IVP ONE (08:30)
[2016-09-12] MEDS ORDERED: SODIUM POLYSTYRENE SULFONATE 15 GM/60 ML UDBTL PO ONE (08:30)
[2016-09-12] MEDS ORDERED: NITROGLYCERIN 0.4 MG TAB.SUBL SL ONE (09:15)
[2016-09-12] MEDS ORDERED: cloNIDine HCL 0.1 MG TABLET PO ONE (09:15)
[2016-09-12] MEDS: HYDROcodone/ACETAMIN 5-325 MG TAB (NORCO/ VICODIN) PO ONE ×2 (09:18→10:10)
[2016-09-12 11:40] VITALS: BP_SYST 225
[2016-09-12] MEDS: HYDROmorphone 1 MG INJ. 1 MG/ML AMPUL IVP PRN ×4 (12:34→20:46)
[2016-09-12] MEDS: ONDANSETRON HCL 4 MG/2 ML VIAL IVP PRN ×3 (12:34→16:45)
[2016-09-12] MEDS: hydrALAZINE HCL 20 MG/ML VIAL IVP PRN ×3 (12:35→20:38)
[2016-09-12 16:00] VITALS: BP_SYST 243
[2016-09-12 19:40] VITALS: BP_SYST 229
[2016-09-13 00:04] VITALS: BP_SYST 206
[2016-09-13] MEDS: ONDANSETRON HCL 4 MG/2 ML VIAL IVP PRN ×2 (00:06→06:28)
[2016-09-13] MEDS: cloNIDine HCL 0.1 MG TABLET PO PRN ×2 (00:09→05:44)
[2016-09-13] MEDS: HYDROmorphone 1 MG INJ. 1 MG/ML AMPUL IVP PRN ×5 (01:04→21:50)
[2016-09-13] MEDS: hydrALAZINE HCL 20 MG/ML VIAL IVP PRN ×3 (02:28→12:24)
[2016-09-13 04:00] VITALS: BP_SYST 216
[2016-09-13 10:00] VITALS: BP_SYST 229
[2016-09-13] MEDS ORDERED: METHOCARBAMOL 500 MG TABLET PO PRN (11:00)
[2016-09-13] MEDS ORDERED: LABETALOL 100 MG/ 20ML VIAL IVP PRN (11:15)
[2016-09-13 12:00] VITALS: BP_SYST 172
[2016-09-13] MEDS: METOCLOPRAMIDE HCL 10 MG/2 ML VIAL IVP SCH ×3 (12:00→17:35)
[2016-09-13] MEDS: D5NS 1,000 ML IV SCH (12:28)
[2016-09-13] MEDS: GABAPENTIN 300 MG CAPSULE PO SCH ×2 (14:19→20:43)
[2016-09-13] MEDS: cloNIDine HCL 0.2 MG TABLET PO SCH ×2 (14:20→21:50)
[2016-09-13 17:10] VITALS: BP_SYST 202
[2016-09-13 20:12] VITALS: BP_SYST 193
[2016-09-13] MEDS: VALSARTAN 160 MG TABLET (DIOVAN) PO SCH (20:43)
[2016-09-13] MEDS: METOPROLOL TARTRATE 50 MG TABLET PO SCH (20:44)
[2016-09-13] MEDS: hydrALAZINE HCL 25 MG TABLET PO SCH (20:44)
[2016-09-13] MEDS: FUROSEMIDE 40 MG TABLET PO SCH (20:45)
[2016-09-13] MEDS: BRIMONIDINE TARTRATE 0.2% 5 mL EYE DROPS OP SCH (20:45)
[2016-09-13] MEDS ORDERED: CEPHALEXIN 250 MG CAPSULE PO SCH (21:00)
[2016-09-14] VITALS: BP_SYST 168
[2016-09-14] MEDS: METOCLOPRAMIDE HCL 10 MG/2 ML VIAL IVP SCH ×5 (00:44→23:42)
[2016-09-14] MEDS: cloNIDine HCL 0.1 MG TABLET PO PRN (02:25)
[2016-09-14] MEDS: HYDROmorphone 1 MG INJ. 1 MG/ML AMPUL IVP PRN ×4 (02:26→21:02)
[2016-09-14 04:48] VITALS: BP_SYST 127
[2016-09-14] MEDS: D5NS 1,000 ML IV SCH ×2 (05:49→20:59)
[2016-09-14] MEDS: cloNIDine HCL 0.2 MG TABLET PO SCH ×3 (05:50→23:42)
[2016-09-14 07:59] VITALS: BP_SYST 137
[2016-09-14] MEDS ORDERED: CINACALCET HCL 30 MG TABLET PO SCH (09:00)
[2016-09-14] MEDS ORDERED: LABETALOL HCL 100 MG TABLET PO SCH (09:00)
[2016-09-14 09:02] LABS: BASOPHILS # (AUTO) 0.1 K/uL (0.0-0.2); BASOPHILS % (AUTO) 0.5 % (0.0-2.0); EOSINOPHILS % (AUTO) 0.2 % (0.0-4.0); HEMATOCRIT 25.1 % (36-54); HEMOGLOBIN 8.3 g/dL (14.0-18.0); LYMPHOCYTES # (AUTO) 3.2 K/uL (1.0-5.5); LYMPHOCYTES % (AUTO) 27.1 % (20.5-51.5); MEAN CORPUSCULAR HEMOGLOBIN 31 pg (27-31); MEAN CORPUSCULAR HGB CONC 33 % (32-36); MEAN CORPUSCULAR VOLUME 95 fL (79.0-98.0); MONOCYTES # (AUTO) 0.7 K/uL (0.0-1.0); MONOCYTES % (AUTO) 6.2 % (1.7-9.3); NEUTROPHILS # (AUTO) 7.7 K/uL (1.8-7.7); PLATELET COUNT (AUTO) 249 K/uL (130-430); RED BLOOD CELL COUNT(AUTO) 2.65 MIL/uL (4.2-6.2); RED CELL DISTRIBUTION WIDTH 13.1 % (9.0-15.0); WHITE BLOOD COUNT (AUTO) 11.7 K/uL (4.8-10.8)
[2016-09-14 09:11] LABS: CALCIUM 8.6 mg/dL (8.4-11.0); POTASSIUM 4.3 mmol/L (3.5-5.1)
[2016-09-14 09:19] LABS: ALBUMIN 2.9 g/dL (3.4-4.8); TOTAL BILIRUBIN 0.4 mg/dL (0.0-1.0); TOTAL PROTEIN, SERUM 5.9 g/dL (6.4-8.3)
[2016-09-14 09:20] LABS: CREATININE 11.07 mg/dL (0.55-1.30)
[2016-09-14] MEDS: CINACALCET HCL 30 MG TABLET PO SCH (09:25)
[2016-09-14] MEDS: hydrALAZINE HCL 25 MG TABLET PO SCH ×2 (09:25→21:04)
[2016-09-14] MEDS: GABAPENTIN 300 MG CAPSULE PO SCH ×3 (09:25→21:03)
[2016-09-14] MEDS: PANTOPRAZOLE SODIUM 40 MG TAB PO SCH (09:26)
[2016-09-14] MEDS: METOPROLOL TARTRATE 50 MG TABLET PO SCH ×2 (09:26→21:03)
[2016-09-14] MEDS: FUROSEMIDE 40 MG TABLET PO SCH ×2 (09:26→21:03)
[2016-09-14] MEDS: VALSARTAN 160 MG TABLET (DIOVAN) PO SCH ×2 (09:27→21:02)
[2016-09-14] MEDS: BRIMONIDINE TARTRATE 0.2% 5 mL EYE DROPS OP SCH ×2 (09:42→21:01)
[2016-09-14 12:00] VITALS: BP_SYST 136
[2016-09-14 16:00] VITALS: BP_SYST 133
[2016-09-14] MEDS ORDERED: EPOETIN ALFA 3,000 UNITS/ML VIAL SUBCUT SCH (17:00)
[2016-09-14] MEDS ORDERED: LATANOPROST 2.5 ML DROPS (XALATAN) OP SCH (18:00)
[2016-09-14 19:55] VITALS: BP_SYST 138
[2016-09-14] MEDS: TIMOLOL MALEATE 0.25% OPHTHALMIC DROPS 5 ML OP SCH (21:01)
[2016-09-15] MEDS: HYDROmorphone 1 MG INJ. 1 MG/ML AMPUL IVP PRN ×3 (02:52→11:08)
[2016-09-15 04:00] VITALS: BP_SYST 150
[2016-09-15] MEDS: METOCLOPRAMIDE HCL 10 MG/2 ML VIAL IVP SCH ×2 (06:27→11:08)
[2016-09-15] MEDS: cloNIDine HCL 0.2 MG TABLET PO SCH (06:28)
[2016-09-15 07:20] LABS: BASOPHILS # (AUTO) 0.1 K/uL (0.0-0.2); BASOPHILS % (AUTO) 0.5 % (0.0-2.0); EOSINOPHILS % (AUTO) 0.4 % (0.0-4.0); HEMATOCRIT 25.2 % (36-54); HEMOGLOBIN 8.4 g/dL (14.0-18.0); LYMPHOCYTES # (AUTO) 3.4 K/uL (1.0-5.5); LYMPHOCYTES % (AUTO) 29.5 % (20.5-51.5); MEAN CORPUSCULAR HEMOGLOBIN 32 pg (27-31); MEAN CORPUSCULAR HGB CONC 34 % (32-36); MEAN CORPUSCULAR VOLUME 94 fL (79.0-98.0); MONOCYTES # (AUTO) 0.8 K/uL (0.0-1.0); MONOCYTES % (AUTO) 6.9 % (1.7-9.3); NEUTROPHILS # (AUTO) 7.2 K/uL (1.8-7.7); NEUTROPHILS % (AUTO) 62.7 % (40.0-70.0); PLATELET COUNT (AUTO) 225 K/uL (130-430); RED BLOOD CELL COUNT(AUTO) 2.68 MIL/uL (4.2-6.2); RED CELL DISTRIBUTION WIDTH 13.4 % (9.0-15.0); WHITE BLOOD COUNT (AUTO) 11.6 K/uL (4.8-10.8)
[2016-09-15 07:27] LABS: CALCIUM 7.4 mg/dL (8.4-11.0)
[2016-09-15 07:42] LABS: CREATININE 8.38 mg/dL (0.55-1.30)
[2016-09-15 08:10] VITALS: BP_SYST 146
[2016-09-15] MEDS: BRIMONIDINE TARTRATE 0.2% 5 mL EYE DROPS OP SCH (10:15)
[2016-09-15] MEDS: TIMOLOL MALEATE 0.25% OPHTHALMIC DROPS 5 ML OP SCH (10:15)
[2016-09-15] MEDS: hydrALAZINE HCL 25 MG TABLET PO SCH (10:16)
[2016-09-15] MEDS: CINACALCET HCL 30 MG TABLET PO SCH (10:17)
[2016-09-15] MEDS: GABAPENTIN 300 MG CAPSULE PO SCH (10:17)
[2016-09-15] MEDS: PANTOPRAZOLE SODIUM 40 MG TAB PO SCH (10:17)
[2016-09-15] MEDS: FUROSEMIDE 40 MG TABLET PO SCH (10:18)
[2016-09-15] MEDS: VALSARTAN 160 MG TABLET (DIOVAN) PO SCH (10:18)
[2016-09-15] MEDS: METOPROLOL TARTRATE 50 MG TABLET PO SCH (10:18)
[2016-09-15 11:30] VITALS: BP_SYST 146
[2016-09-16] MEDS ORDERED: EPOETIN ALFA 3,000 UNITS/ML VIAL SUBCUT SCH (17:00)
== END 2016-09-15 13:30 | disposition home health service (06) | DRG 73 ==
LOC: SED 03:17 → STU 10:21
PROVIDERS: ADMIT Internal Medicine Hospice and Palliative Medicine; ATTEND Internal Medicine Hospice and Palliative Medicine
PROC: 5A1D60Z (ICD-10-PCS; principal; 2016-09-12)
DX: E10.43 Type 1 diabetes mellitus with diabetic autonomic (poly)neuropathy (principal); N18.6 End stage renal disease; E87.1 Hypo-osmolality and hyponatremia; I12.0 Hypertensive chronic kidney disease with stage 5 chronic kidney disease or end stage renal disease; K31.84 Gastroparesis; E10.319 Type 1 diabetes mellitus with unspecified diabetic retinopathy without macular edema; E87.5 Hyperkalemia; D63.1 Anemia in chronic kidney disease; E10.22 Type 1 diabetes mellitus with diabetic chronic kidney disease; H54.0 Blindness, both eyes; Z88.8 Allergy status to other drugs, medicaments and biological substances; Z99.2 Dependence on renal dialysis; Z79.899 Other long term (current) drug therapy
CPT/HCPCS: 36415; 74020-TC; 80048; 80053; 83690-TC; 85025; 87081; 90935; 90937; 96374; 96375; 96376; 99285; J0360; J0610; J0885; J1170; J2405; J2765; J3490; J7030; J7042

== ENCOUNTER 2016-10-04 00:23 | Emergency (ER) | payer OTHER, MEDICAID ==
[~2016-10-04] VITALS: Ht 177.8 cm; Wt 104.3 kg
[2016-10-04 00:23] VITALS: BP_SYST 234
[2016-10-04] MEDS ORDERED: ENALAPRILAT DIHYDRATE 1.25 MG/ML VIAL IVP ONE ×2 (00:45→01:30)
[2016-10-04] MEDS ORDERED: METOCLOPRAMIDE HCL 10 MG/2 ML VIAL IVP ONE ×2 (00:45→02:30)
[2016-10-04] MEDS ORDERED: MORPHINE 4 MG/ML INJ. SYRINGE IVP ONE ×3 (00:45→02:30)
[2016-10-04 01:24] LABS: CALCIUM 9.4 mg/dL (8.4-11.0); POTASSIUM 5.5 mmol/L (3.5-5.1)
[2016-10-04 01:29] LABS: ALBUMIN 4.2 g/dL (3.4-4.8); TOTAL BILIRUBIN 0.6 mg/dL (0.0-1.0); TOTAL PROTEIN, SERUM 8.4 g/dL (6.4-8.3)
[2016-10-04] MEDS ORDERED: hydrALAZINE HCL 20 MG/ML VIAL IVP ONE ×2 (01:30→02:30)
[2016-10-04 01:34] LABS: BASOPHILS % (AUTO) 0.3 % (0.0-2.0); EOSINOPHILS # (AUTO) 0.1 K/uL (0.0-0.4); EOSINOPHILS % (AUTO) 0.6 % (0.0-4.0); HEMATOCRIT 32.5 % (36-54); HEMOGLOBIN 11.1 g/dL (14.0-18.0); LYMPHOCYTES # (AUTO) 1.3 K/uL (1.0-5.5); LYMPHOCYTES % (AUTO) 10.5 % (20.5-51.5); MEAN CORPUSCULAR HEMOGLOBIN 33 pg (27-31); MEAN CORPUSCULAR HGB CONC 34 % (32-36); MEAN CORPUSCULAR VOLUME 96 fL (79.0-98.0); MONOCYTES # (AUTO) 0.4 K/uL (0.0-1.0); MONOCYTES % (AUTO) 3.4 % (1.7-9.3); NEUTROPHILS # (AUTO) 10.5 K/uL (1.8-7.7); NEUTROPHILS % (AUTO) 85.2 % (40.0-70.0); PLATELET COUNT (AUTO) 285 K/uL (130-430); RED CELL DISTRIBUTION WIDTH 14.7 % (9.0-15.0); WHITE BLOOD COUNT (AUTO) 12.3 K/uL (4.8-10.8)
[2016-10-04 03:50] VITALS: BP_SYST 187
== END 2016-10-04 03:50 | disposition home or self-care (01) ==
LOC: SED 00:23
DX: E11.43 Type 2 diabetes mellitus with diabetic autonomic (poly)neuropathy (principal); K31.84 Gastroparesis; E11.40 Type 2 diabetes mellitus with diabetic neuropathy, unspecified; H54.0 Blindness, both eyes; I12.0 Hypertensive chronic kidney disease with stage 5 chronic kidney disease or end stage renal disease; E11.22 Type 2 diabetes mellitus with diabetic chronic kidney disease; N18.6 End stage renal disease; Z99.2 Dependence on renal dialysis; Z79.899 Other long term (current) drug therapy; Z88.8 Allergy status to other drugs, medicaments and biological substances
CPT/HCPCS: 36415; 80053; 85025; 96374; 96375; 96376; 99284; J0360; J2270; J2765

== ENCOUNTER 2016-10-26 03:18 | Inpatient (IN) | payer OTHER, MEDICAID ==
[2016-10-26] VITALS (18 sets, daily range): BP systolic 155–252
[~2016-10-26] VITALS: Ht 177.8 cm; Wt 111.6 kg
[2016-10-26] MEDS ORDERED: HYDROmorphone 1 MG INJ. 1 MG/ML AMPUL IVP ONE ×2 (03:30→05:00)
[2016-10-26] MEDS ORDERED: ONDANSETRON HCL 4 MG/2 ML VIAL IVP ONE ×2 (03:30→05:15)
[2016-10-26 04:08] LABS: CALCIUM 9.6 mg/dL (8.4-11.0); POTASSIUM 4.8 mmol/L (3.5-5.1)
[2016-10-26 04:11] LABS: CREATININE 14.06 mg/dL (0.55-1.30); PROTHROMBIN TIME 10.5 SECS (9.5-12.5)
[2016-10-26 04:12] LABS: ALBUMIN 4.1 g/dL (3.4-4.8); TOTAL BILIRUBIN 0.6 mg/dL (0.0-1.0); TOTAL PROTEIN, SERUM 8.2 g/dL (6.4-8.3)
[2016-10-26 04:13] LABS: HEMATOCRIT 34.6 % (36-54); HEMOGLOBIN 11.8 g/dL (14.0-18.0); MEAN CORPUSCULAR HEMOGLOBIN 32 pg (27-31); MEAN CORPUSCULAR HGB CONC 34 % (32-36); MEAN CORPUSCULAR VOLUME 95 fL (79.0-98.0); PLATELET COUNT (AUTO) 283 K/uL (130-430); RED BLOOD CELL COUNT(AUTO) 3.66 MIL/uL (4.2-6.2); RED CELL DISTRIBUTION WIDTH 14.4 % (9.0-15.0); WHITE BLOOD COUNT (AUTO) 21.7 K/uL (4.8-10.8)
[2016-10-26] MEDS ORDERED: cloNIDine HCL 0.1 MG TABLET PO ONE (04:30)
[2016-10-26 04:41] LABS: BILIRUBIN,URINE NEGATIVE (NEGATIVE); BLOOD, URINE 2+ (NEGATIVE); CLARITY/URINE CLEAR (CLEAR); COLOR,URINE YELLOW (YELLOW); GLUCOSE,URINE 1+ (NEGATIVE); KETONES,URINE NEGATIVE (NEGATIVE); LEUKOCYTE ESTERASE ,URINE NEGATIVE (NEGATIVE); NITRITE, URINE NEGATIVE (NEGATIVE); PH,URINE 7.5 (5.0-8.0); PROTEIN URINE 3+ (NEGATIVE); UROBILINOGEN,URINE 0.2 (0.2-1.0)
[2016-10-26 04:54] LABS: BACTERIA,URINE FEW /HPF (None Seen)
[2016-10-26] MEDS ORDERED: METO-290 PO (04:55)
[2016-10-26] MEDS ORDERED: OXYC-133 PO (04:55)
[2016-10-26 05:10] LABS: ATYPICAL LYMPHOCYTES % 0 % (0-0); BAND % (MANUAL) 3 % (0-6); BASOPHILS % (MANUAL) 0 % (0-2); EOSINOPHILS % (MANUAL) 1 % (0-7); LYMPHOCYTES % (MANUAL) 15 % (20-46); MONOCYTES % (MANUAL) 3 % (0-11)
[2016-10-26] MEDS ORDERED: NS 500 ML IV ONE (05:15)
[2016-10-26] MEDS ORDERED: cefTRIAXone 2 GM VIAL IM ONE (05:15)
[2016-10-26] MEDS ORDERED: hydrALAZINE HCL 20 MG/ML VIAL IVP ONE ×2 (06:15→11:45)
[2016-10-26] MEDS ORDERED: cloNIDine HCL 0.2 MG TABLET ONE (08:15)
[2016-10-26] MEDS ORDERED: VANCOMYCIN HCL 1 GM/NS PREMIX 250 ML IV ONE (09:00)
[2016-10-26] MEDS ORDERED: MORPHINE 2 MG/ML INJ. SYRINGE IVP PRN (09:30)
[2016-10-26] MEDS: NITROGLYCERIN 250 ML IV PRN ×3 (09:31→21:16)
[2016-10-26] MEDS ORDERED: PANTOPRAZOLE SODIUM 40 MG/VIAL (PROTONIX) IVP ONE (10:15)
[2016-10-26] MEDS ORDERED: MORPHINE 2 MG/ML INJ. SYRINGE ONE (10:20)
[2016-10-26] MEDS ORDERED: ONDANSETRON HCL 4 MG/2 ML VIAL ONE (10:43)
[2016-10-26] MEDS: cefTRIAXone 1 GM in D5W 50 ML IV SCH ×2 (12:58→15:08)
[2016-10-26] MEDS: HYDROmorphone 1 MG INJ. 1 MG/ML AMPUL IVP PRN ×3 (13:14→21:01)
[2016-10-26] MEDS: ALBUTEROL SULFATE 0.083% 2.5 MG/3 ML VIAL.NEB INH SCH ×2 (15:00→19:45)
[2016-10-26] MEDS: METOCLOPRAMIDE HCL 10 MG/2 ML VIAL IVP PRN (17:01)
[2016-10-26] MEDS: PIPERACILLIN/TAZO 2.25G/DEX-IS 50 ML IV SCH (18:00)
[2016-10-26] MEDS: INSULIN ASPART 100 UNITS/ML, 10 ML VIAL (NovoLOG) SUBCUT PRN ×2 (18:19→21:14)
[2016-10-26] MEDS ORDERED: PIPERACILLIN/TAZOBACTAM 2.25 GM VIAL IV ONE (20:28)
[2016-10-26] MEDS: ONDANSETRON HCL 4 MG/2 ML VIAL IVP PRN (21:00)
[2016-10-27] VITALS (23 sets, daily range): BP systolic 122–214
[2016-10-27] MEDS: PIPERACILLIN/TAZO 2.25G/DEX-IS 50 ML IV SCH ×5 (01:06→23:08)
[2016-10-27] MEDS: HYDROmorphone 1 MG INJ. 1 MG/ML AMPUL IVP PRN ×5 (01:09→20:44)
[2016-10-27] MEDS: ALBUTEROL SULFATE 0.083% 2.5 MG/3 ML VIAL.NEB INH SCH ×4 (01:11→20:14)
[2016-10-27] MEDS: NITROGLYCERIN 250 ML IV PRN (02:47)
[2016-10-27] MEDS: ONDANSETRON HCL 4 MG/2 ML VIAL IVP PRN ×2 (03:14→10:43)
[2016-10-27] MEDS: INSULIN ASPART 100 UNITS/ML, 10 ML VIAL (NovoLOG) SUBCUT PRN ×3 (06:13→23:05)
[2016-10-27 06:56] LABS: ALBUMIN 3.5 g/dL (3.4-4.8); CALCIUM 9.8 mg/dL (8.4-11.0); PHOSPHORUS 8.9 mg/dL (2.7-4.5); TOTAL BILIRUBIN 0.8 mg/dL (0.0-1.0); TOTAL PROTEIN, SERUM 7.4 g/dL (6.4-8.3)
[2016-10-27] MEDS ORDERED: DIPHENHYDRAMINE INJ 50 MG/ML VIAL IVP ONE (07:00)
[2016-10-27 07:17] LABS: CREATININE 10.77 mg/dL (0.55-1.30)
[2016-10-27 07:23] LABS: BASOPHILS % (AUTO) 0.2 % (0.0-2.0); HEMATOCRIT 32.5 % (36-54); HEMOGLOBIN 10.9 g/dL (14.0-18.0); LYMPHOCYTES # (AUTO) 0.8 K/uL (1.0-5.5); LYMPHOCYTES % (AUTO) 5.8 % (20.5-51.5); MEAN CORPUSCULAR HEMOGLOBIN 32 pg (27-31); MEAN CORPUSCULAR HGB CONC 34 % (32-36); MEAN CORPUSCULAR VOLUME 96 fL (79.0-98.0); MONOCYTES # (AUTO) 0.8 K/uL (0.0-1.0); MONOCYTES % (AUTO) 5.7 % (1.7-9.3); NEUTROPHILS # (AUTO) 12.5 K/uL (1.8-7.7); NEUTROPHILS % (AUTO) 88.3 % (40.0-70.0); PLATELET COUNT (AUTO) 216 K/uL (130-430); RED BLOOD CELL COUNT(AUTO) 3.39 MIL/uL (4.2-6.2); RED CELL DISTRIBUTION WIDTH 14.2 % (9.0-15.0)
[2016-10-27] MEDS: PANTOPRAZOLE SODIUM 40 MG/VIAL (PROTONIX) IVP SCH (08:10)
[2016-10-27] MEDS: METOCLOPRAMIDE HCL 10 MG/2 ML VIAL IVP PRN (08:10)
[2016-10-27 08:21] LABS: WHITE BLOOD COUNT (AUTO) 14.1 K/uL (4.8-10.8)
[2016-10-27] MEDS ORDERED: hydrALAZINE HCL 20 MG/ML VIAL ONE (08:37)
[2016-10-27] MEDS ORDERED: LABETALOL HCL 100 MG TABLET PO PRN (09:00)
[2016-10-27] MEDS ORDERED: cloNIDine HCL 0.2 MG TABLET PO PRN (09:00)
[2016-10-27] MEDS: hydrALAZINE HCL 20 MG/ML VIAL IVP PRN ×2 (09:08→17:25)
[2016-10-27] MEDS: amLODIPine BESYLATE 5 MG TABLET PO SCH ×2 (09:11→20:49)
[2016-10-27] MEDS: niCARdipine 25 MG in D5W 240 ML IV PRN ×4 (09:48→22:17)
[2016-10-27] MEDS: METOPROLOL TARTRATE 50 MG TABLET PO SCH ×2 (10:38→20:48)
[2016-10-27] MEDS ORDERED: LABETALOL 100 MG/ 20ML VIAL IVP PRN (13:00)
[2016-10-28] VITALS (25 sets, daily range): BP systolic 125–183
[2016-10-28] MEDS: HYDROmorphone 1 MG INJ. 1 MG/ML AMPUL IVP PRN ×7 (00:01→21:55)
[2016-10-28] MEDS: ALBUTEROL SULFATE 0.083% 2.5 MG/3 ML VIAL.NEB INH SCH ×4 (01:53→19:47)
[2016-10-28] MEDS: niCARdipine 25 MG in D5W 240 ML IV PRN ×3 (03:37→19:11)
[2016-10-28] MEDS: PIPERACILLIN/TAZO 2.25G/DEX-IS 50 ML IV SCH ×4 (05:09→23:53)
[2016-10-28] MEDS: INSULIN ASPART 100 UNITS/ML, 10 ML VIAL (NovoLOG) SUBCUT PRN ×3 (06:38→17:06)
[2016-10-28 06:52] LABS: BASOPHILS # (AUTO) 0.1 K/uL (0.0-0.2); BASOPHILS % (AUTO) 0.4 % (0.0-2.0); EOSINOPHILS % (AUTO) 0.3 % (0.0-4.0); HEMATOCRIT 31.6 % (36-54); HEMOGLOBIN 10.4 g/dL (14.0-18.0); LYMPHOCYTES # (AUTO) 2.2 K/uL (1.0-5.5); MEAN CORPUSCULAR HEMOGLOBIN 32 pg (27-31); MEAN CORPUSCULAR HGB CONC 33 % (32-36); MEAN CORPUSCULAR VOLUME 96 fL (79.0-98.0); MONOCYTES # (AUTO) 0.9 K/uL (0.0-1.0); MONOCYTES % (AUTO) 5.5 % (1.7-9.3); NEUTROPHILS # (AUTO) 12.8 K/uL (1.8-7.7); NEUTROPHILS % (AUTO) 79.8 % (40.0-70.0); PLATELET COUNT (AUTO) 193 K/uL (130-430); RED BLOOD CELL COUNT(AUTO) 3.29 MIL/uL (4.2-6.2); RED CELL DISTRIBUTION WIDTH 14.3 % (9.0-15.0); WHITE BLOOD COUNT (AUTO) 15.9 K/uL (4.8-10.8)
[2016-10-28 07:10] LABS: CALCIUM 9.1 mg/dL (8.4-11.0); POTASSIUM 3.4 mmol/L (3.5-5.1)
[2016-10-28 07:15] LABS: CREATININE 12.4 mg/dL (0.55-1.30)
[2016-10-28] MEDS: amLODIPine BESYLATE 5 MG TABLET PO SCH ×2 (08:31→20:03)
[2016-10-28] MEDS: PANTOPRAZOLE SODIUM 40 MG/VIAL (PROTONIX) IVP SCH (08:31)
[2016-10-28] MEDS: METOPROLOL TARTRATE 50 MG TABLET PO SCH ×2 (08:32→20:03)
[2016-10-29] VITALS (24 sets, daily range): BP systolic 137–183
[2016-10-29] MEDS: ALBUTEROL SULFATE 0.083% 2.5 MG/3 ML VIAL.NEB INH SCH ×4 (00:16→19:30)
[2016-10-29] MEDS: HYDROmorphone 1 MG INJ. 1 MG/ML AMPUL IVP PRN ×7 (01:04→20:38)
[2016-10-29] MEDS ORDERED: HYDROmorphone 2 MG/ML VIAL ONE ×2 (01:10→04:21)
[2016-10-29] MEDS ORDERED: niCARdipine 2.5 MG/ML, 10 ML VIAL (CARDENE) IV ONE ×2 (03:36→07:43)
[2016-10-29] MEDS: niCARdipine 25 MG in D5W 240 ML IV PRN ×6 (03:40→20:46)
[2016-10-29] MEDS: PIPERACILLIN/TAZO 2.25G/DEX-IS 50 ML IV SCH ×3 (05:58→17:47)
[2016-10-29 06:33] LABS: BASOPHILS # (AUTO) 0.1 K/uL (0.0-0.2); BASOPHILS % (AUTO) 0.6 % (0.0-2.0); EOSINOPHILS # (AUTO) 0.1 K/uL (0.0-0.4); EOSINOPHILS % (AUTO) 0.6 % (0.0-4.0); HEMATOCRIT 33.7 % (36-54); HEMOGLOBIN 11.4 g/dL (14.0-18.0); LYMPHOCYTES # (AUTO) 2.2 K/uL (1.0-5.5); LYMPHOCYTES % (AUTO) 16.2 % (20.5-51.5); MEAN CORPUSCULAR HEMOGLOBIN 32 pg (27-31); MEAN CORPUSCULAR HGB CONC 34 % (32-36); MEAN CORPUSCULAR VOLUME 96 fL (79.0-98.0); MONOCYTES % (AUTO) 7.1 % (1.7-9.3); NEUTROPHILS # (AUTO) 10.1 K/uL (1.8-7.7); NEUTROPHILS % (AUTO) 75.5 % (40.0-70.0); PLATELET COUNT (AUTO) 200 K/uL (130-430); RED BLOOD CELL COUNT(AUTO) 3.53 MIL/uL (4.2-6.2); RED CELL DISTRIBUTION WIDTH 13.4 % (9.0-15.0); WHITE BLOOD COUNT (AUTO) 13.5 K/uL (4.8-10.8)
[2016-10-29 07:02] LABS: CALCIUM 9.4 mg/dL (8.4-11.0); POTASSIUM 3.9 mmol/L (3.5-5.1)
[2016-10-29 07:16] LABS: CREATININE 8.9 mg/dL (0.55-1.30)
[2016-10-29] MEDS: amLODIPine BESYLATE 5 MG TABLET PO SCH ×2 (09:02→20:39)
[2016-10-29] MEDS: METOPROLOL TARTRATE 50 MG TABLET PO SCH ×2 (09:03→20:39)
[2016-10-29] MEDS: PANTOPRAZOLE SODIUM 40 MG/VIAL (PROTONIX) IVP SCH (09:05)
[2016-10-29] MEDS: hydrALAZINE HCL 20 MG/ML VIAL IVP PRN (13:49)
[2016-10-29] MEDS: INSULIN ASPART 100 UNITS/ML, 10 ML VIAL (NovoLOG) SUBCUT PRN (17:49)
[2016-10-29] MEDS ORDERED: METOPROLOL TARTRATE 25 MG TABLET ONE (20:44)
[2016-10-30] VITALS (24 sets, daily range): BP systolic 124–159
[2016-10-30] MEDS: HYDROmorphone 1 MG INJ. 1 MG/ML AMPUL IVP PRN ×8 (00:10→23:50)
[2016-10-30] MEDS ORDERED: HYDROmorphone 2 MG/ML VIAL ONE ×3 (00:17→07:35)
[2016-10-30] MEDS: PIPERACILLIN/TAZO 2.25G/DEX-IS 50 ML IV SCH ×3 (00:42→11:50)
[2016-10-30] MEDS: niCARdipine 25 MG in D5W 240 ML IV PRN ×9 (01:54→20:41)
[2016-10-30] MEDS: ALBUTEROL SULFATE 0.083% 2.5 MG/3 ML VIAL.NEB INH SCH ×5 (04:19→20:05)
[2016-10-30] MEDS ORDERED: niCARdipine 2.5 MG/ML, 10 ML VIAL (CARDENE) IV ONE (06:46)
[2016-10-30] MEDS: INSULIN ASPART 100 UNITS/ML, 10 ML VIAL (NovoLOG) SUBCUT PRN ×4 (06:57→21:09)
[2016-10-30] MEDS: PANTOPRAZOLE SODIUM 40 MG/VIAL (PROTONIX) IVP SCH (08:03)
[2016-10-30] MEDS: METOPROLOL TARTRATE 50 MG TABLET PO SCH ×2 (08:04→21:11)
[2016-10-30] MEDS: amLODIPine BESYLATE 5 MG TABLET PO SCH ×2 (08:06→21:12)
[2016-10-30] MEDS ORDERED: VALSARTAN 80 MG TABLET (DIOVAN) PO ONE (11:30)
[2016-10-30] MEDS: METOCLOPRAMIDE HCL 10 MG/2 ML VIAL IVP SCH ×2 (11:32→16:49)
[2016-10-30] MEDS: cefTRIAXone 1 GM in D5W 50 ML IV SCH (16:45)
[2016-10-30] MEDS ORDERED: ENALAPRILAT DIHYDRATE 1.25 MG/ML VIAL IVP PRN (19:30)
[2016-10-30] MEDS ORDERED: VALSARTAN 80 MG TABLET (DIOVAN) PO SCH (21:00)
[2016-10-30] MEDS: hydrALAZINE HCL 25 MG TABLET PO SCH (21:11)
[2016-10-30] MEDS: VALSARTAN 160 MG TABLET (DIOVAN) PO SCH (21:12)
[2016-10-30] MEDS: FUROSEMIDE 40 MG TABLET PO SCH (21:13)
[2016-10-30] MEDS: cloNIDine HCL 0.2 MG TABLET PO SCH (21:13)
[2016-10-31] VITALS (20 sets, daily range): BP systolic 133–170
[2016-10-31] MEDS: ALBUTEROL SULFATE 0.083% 2.5 MG/3 ML VIAL.NEB INH SCH ×4 (00:32→19:39)
[2016-10-31] MEDS: HYDROmorphone 1 MG INJ. 1 MG/ML AMPUL IVP PRN ×6 (04:15→21:08)
[2016-10-31 06:20] LABS: BASOPHILS # (AUTO) 0.1 K/uL (0.0-0.2); BASOPHILS % (AUTO) 0.6 % (0.0-2.0); EOSINOPHILS # (AUTO) 0.4 K/uL (0.0-0.4); EOSINOPHILS % (AUTO) 3.2 % (0.0-4.0); HEMOGLOBIN 10.3 g/dL (14.0-18.0); LYMPHOCYTES # (AUTO) 2.7 K/uL (1.0-5.5); LYMPHOCYTES % (AUTO) 24.7 % (20.5-51.5); MEAN CORPUSCULAR HEMOGLOBIN 31 pg (27-31); MEAN CORPUSCULAR HGB CONC 33 % (32-36); MEAN CORPUSCULAR VOLUME 93 fL (79.0-98.0); MONOCYTES # (AUTO) 0.9 K/uL (0.0-1.0); MONOCYTES % (AUTO) 7.9 % (1.7-9.3); NEUTROPHILS # (AUTO) 6.9 K/uL (1.8-7.7); NEUTROPHILS % (AUTO) 63.6 % (40.0-70.0); PLATELET COUNT (AUTO) 228 K/uL (130-430); RED BLOOD CELL COUNT(AUTO) 3.35 MIL/uL (4.2-6.2); RED CELL DISTRIBUTION WIDTH 13.4 % (9.0-15.0)
[2016-10-31] MEDS: METOCLOPRAMIDE HCL 10 MG/2 ML VIAL IVP SCH ×3 (06:20→17:58)
[2016-10-31] MEDS: hydrALAZINE HCL 20 MG/ML VIAL IVP PRN (06:20)
[2016-10-31] MEDS: INSULIN ASPART 100 UNITS/ML, 10 ML VIAL (NovoLOG) SUBCUT PRN (06:23)
[2016-10-31 06:43] LABS: ALBUMIN 2.6 g/dL (3.4-4.8); CALCIUM 8.8 mg/dL (8.4-11.0); TOTAL BILIRUBIN 0.4 mg/dL (0.0-1.0); TOTAL PROTEIN, SERUM 6.1 g/dL (6.4-8.3)
[2016-10-31 07:27] LABS: CREATININE 11.97 mg/dL (0.55-1.30)
[2016-10-31] MEDS: hydrALAZINE HCL 25 MG TABLET PO SCH ×3 (09:26→21:10)
[2016-10-31] MEDS: VALSARTAN 160 MG TABLET (DIOVAN) PO SCH ×2 (09:27→21:10)
[2016-10-31] MEDS: cloNIDine HCL 0.2 MG TABLET PO SCH ×3 (09:27→21:11)
[2016-10-31] MEDS: amLODIPine BESYLATE 5 MG TABLET PO SCH ×2 (09:27→21:11)
[2016-10-31] MEDS: METOPROLOL TARTRATE 50 MG TABLET PO SCH ×2 (09:28→21:11)
[2016-10-31] MEDS: FUROSEMIDE 40 MG TABLET PO SCH ×2 (09:28→21:10)
[2016-10-31] MEDS: PANTOPRAZOLE SODIUM 40 MG/VIAL (PROTONIX) IVP SCH (09:29)
[2016-10-31] MEDS: ONDANSETRON HCL 4 MG/2 ML VIAL IVP PRN (10:42)
[2016-10-31] MEDS: cefTRIAXone 1 GM in D5W 50 ML IV SCH (14:37)
[2016-11-01] VITALS: BP_SYST 176
[2016-11-01] MEDS: HYDROmorphone 1 MG INJ. 1 MG/ML AMPUL IVP PRN ×6 (00:07→15:06)
[2016-11-01 04:02] VITALS: BP_SYST 132
[2016-11-01] MEDS: ALBUTEROL SULFATE 0.083% 2.5 MG/3 ML VIAL.NEB INH SCH ×3 (06:00→12:00)
[2016-11-01] MEDS: METOCLOPRAMIDE HCL 10 MG/2 ML VIAL IVP SCH (06:10)
[2016-11-01 07:30] LABS: CALCIUM 8.9 mg/dL (8.4-11.0); POTASSIUM 3.5 mmol/L (3.5-5.1)
[2016-11-01 07:34] LABS: CREATININE 9.41 mg/dL (0.55-1.30)
[2016-11-01 08:00] VITALS: BP_SYST 152
[2016-11-01] MEDS ORDERED: MEPERIDINE HCL/PF 100 MG/ML AMP ONE (08:02)
[2016-11-01] MEDS ORDERED: MIDAZOLAM HCL 5 MG/5 ML VIAL ONE (08:03)
[2016-11-01] MEDS: amLODIPine BESYLATE 5 MG TABLET PO SCH (09:06)
[2016-11-01] MEDS: VALSARTAN 160 MG TABLET (DIOVAN) PO SCH (09:06)
[2016-11-01] MEDS: PANTOPRAZOLE SODIUM 40 MG/VIAL (PROTONIX) IVP SCH (09:07)
[2016-11-01] MEDS: METOPROLOL TARTRATE 50 MG TABLET PO SCH (09:07)
[2016-11-01] MEDS: cloNIDine HCL 0.2 MG TABLET PO SCH ×2 (09:07→15:14)
[2016-11-01] MEDS: hydrALAZINE HCL 25 MG TABLET PO SCH ×2 (09:07→15:15)
[2016-11-01] MEDS: FUROSEMIDE 40 MG TABLET PO SCH (09:09)
[2016-11-01] MEDS ORDERED: METOCLOPRAMIDE HCL 10 MG/2 ML VIAL IVP SCH (11:30)
[2016-11-01] MEDS: hydrALAZINE HCL 20 MG/ML VIAL IVP PRN (11:41)
[2016-11-01] MEDS: INSULIN ASPART 100 UNITS/ML, 10 ML VIAL (NovoLOG) SUBCUT PRN (11:49)
[2016-11-01 12:28] VITALS: BP_SYST 155
[2016-11-01] MEDS: cefTRIAXone 1 GM in D5W 50 ML IV SCH (15:16)
[2016-11-01 15:37] VITALS: BP_SYST 150
[2016-11-01 16:10] VITALS: BP_SYST 150
== END 2016-11-01 16:22 | disposition home health service (06) | DRG 871 ==
LOC: SED 03:18 → SIC 06:37 → STU 10-31 18:35
PROVIDERS: ADMIT Internal Medicine; ATTEND Internal Medicine
PROC: 02HV33Z Insertion of Infusion Device into Superior Vena Cava, Percutaneous Approach (ICD-10-PCS; principal; 2016-10-26)
PROC: 5A1D60Z (ICD-10-PCS; 2016-10-26)
PROC: B548ZZA Ultrasonography of Superior Vena Cava, Guidance (ICD-10-PCS; 2016-10-26)
DX: A41.9 Sepsis, unspecified organism (principal); N18.6 End stage renal disease; I13.2 Hypertensive heart and chronic kidney disease with heart failure and with stage 5 chronic kidney disease, or end stage renal disease; J18.9 Pneumonia, unspecified organism; N25.81 Secondary hyperparathyroidism of renal origin; K31.84 Gastroparesis; E10.22 Type 1 diabetes mellitus with diabetic chronic kidney disease; E10.43 Type 1 diabetes mellitus with diabetic autonomic (poly)neuropathy; F03.90 Unspecified dementia, unspecified severity, without behavioral disturbance, psychotic disturbance, mood disturbance, and anxiety; I50.30 Unspecified diastolic (congestive) heart failure; I16.1 Hypertensive emergency; N39.0 Urinary tract infection, site not specified; D63.1 Anemia in chronic kidney disease; H54.8 Legal blindness, as defined in USA; J44.9 Chronic obstructive pulmonary disease, unspecified; K21.9 Gastro-esophageal reflux disease without esophagitis; N25.0 Renal osteodystrophy; E10.319 Type 1 diabetes mellitus with unspecified diabetic retinopathy without macular edema; Z99.2 Dependence on renal dialysis; Z79.4 Long term (current) use of insulin; Z79.84 Long term (current) use of oral hypoglycemic drugs; Z82.49 Family history of ischemic heart disease and other diseases of the circulatory system; Z83.3 Family history of diabetes mellitus; Z84.1 Family history of disorders of kidney and ureter; Z88.8 Allergy status to other drugs, medicaments and biological substances; Z95.0 Presence of cardiac pacemaker; Z86.73 Personal history of transient ischemic attack (TIA), and cerebral infarction without residual deficits; Z91.19 Patient's noncompliance with other medical treatment and regimen
CPT/HCPCS: 36415; 71010; 76700-TC; 80048; 80053; 81000-TC; 82150-TC; 82962; 83605; 83690-TC; 83735-TC; 84100-TC; 85007; 85025; 85027; 85610-TC; 85730-TC; 86738; 87040-TC; 87081; 87086; 90935; 90937; 94640; 96372; 96374; 96375; 96376; 99285; C1751; C1769; C9113; J0360; J0696; J1170; J1200; J1815; J2175; J2250; J2270; J2405; J2543; J2765; J3370; J3490; J7030; J7040; J7050; J7060

== ENCOUNTER 2016-11-07 03:46 | Emergency (ER) | payer OTHER, MEDICAID ==
[~2016-11-07] VITALS: Ht 177.8 cm; Wt 104.3 kg
[2016-11-07 03:46] VITALS: BP_SYST 193
[~2016-11-07 03:46] MED LIST changes: -ALPR0.2583 PO; -CEPH250C PO; -HYDR-3110 PO; -LABE100T PO; +METO-290 PO; +OXYC-133 PO
--- NOTE | 2016-11-07 03:46 | NUR ---
Patient to ER bed 6 to gown for evaluation. Side rails up. Report given to JOVI SOUTH.
--- NOTE | 2016-11-07 03:50 | NUR ---
ED MD Askew at bedside for medical evaluation.
--- NOTE | 2016-11-07 03:50 | NUR ---
Patient arrived to ED a/o x 4 with c/o ABD pain since 0200 this morning. Patient reports sharp 10/10 pain that does not radiate localized to the RUQ. Denies fever. Reports nausea without vomiting. No ABD distention noted. Hx of gastoparesis. Reports having chronic ABD pain. Was seen in ED this morning. Recieved 2mg dialudid. Reported relief from pain after administration. Patient recieved dialysis MWF. Mother at bedside. Will continue to monitor.
[2016-11-07] MEDS ORDERED: HYDROmorphone 2 MG/ML VIAL IM ONE (04:15)
--- NOTE | 2016-11-07 04:37 | NUR ---
Patient reports pain 2/10 15 minutes after administration of Dilaudid. No adverse reactions noted. Will continue to monitor.
[2016-11-07 04:45] VITALS: BP_SYST 190
--- NOTE | 2016-11-07 04:45 | NUR ---
Patient given written and verbal discharge instructions and verbalizes understanding. ER MD discussed with patient the results and treatment provided. Patient in stable condition. ID arm band removed. Rx of Zofran and [place] given. Patient educated on pain management and to follow up with PMD. Pain Scale 2/10 tolerable for patient. Opportunity for questions provided and answered.
== END 2016-11-07 04:45 | disposition home or self-care (01) ==
LOC: SED 03:46
DX: E11.43 Type 2 diabetes mellitus with diabetic autonomic (poly)neuropathy (principal); K31.84 Gastroparesis; I10 Essential (primary) hypertension; H54.0 Blindness, both eyes; Z99.2 Dependence on renal dialysis; Z79.899 Other long term (current) drug therapy; Z88.8 Allergy status to other drugs, medicaments and biological substances
CPT/HCPCS: 96372; 99283; J1170

== ENCOUNTER 2016-12-09 06:54 | Emergency (ER) | payer OTHER, MEDICAID ==
[~2016-12-09] VITALS: Ht 177.8 cm; Wt 101.6 kg
[2016-12-09 07:04] VITALS: BP_SYST 190
[2016-12-09] MEDS ORDERED: HYDROmorphone 1 MG INJ. 1 MG/ML AMPUL IVP ONE (08:00)
[2016-12-09] MEDS ORDERED: MAG HYDROX/AL HYDROX/SIMETH 30 ML, BELLADONNA ALKALOIDS/PHENOBARB 10 ML, LIDOCAINE VISC... PO ONE ×3 (08:00)
[2016-12-09] MEDS ORDERED: NACL 0.9% 1,000 ML IV ONE (08:00)
[2016-12-09] MEDS ORDERED: DIPHENHYDRAMINE INJ 50 MG/ML VIAL IVP ONE (08:00)
[2016-12-09 08:10] LABS: BASOPHILS # (AUTO) 0.1 K/uL (0.0-0.2); BASOPHILS % (AUTO) 0.7 % (0.0-2.0); EOSINOPHILS # (AUTO) 0.1 K/uL (0.0-0.4); EOSINOPHILS % (AUTO) 1.3 % (0.0-4.0); HEMATOCRIT 36.3 % (36-54); HEMOGLOBIN 12.4 g/dL (14.0-18.0); LYMPHOCYTES # (AUTO) 2.1 K/uL (1.0-5.5); LYMPHOCYTES % (AUTO) 23.2 % (20.5-51.5); MEAN CORPUSCULAR HEMOGLOBIN 32 pg (27-31); MEAN CORPUSCULAR HGB CONC 34 % (32-36); MEAN CORPUSCULAR VOLUME 93 fL (79.0-98.0); MONOCYTES # (AUTO) 0.6 K/uL (0.0-1.0); MONOCYTES % (AUTO) 6.1 % (1.7-9.3); NEUTROPHILS # (AUTO) 6.4 K/uL (1.8-7.7); NEUTROPHILS % (AUTO) 68.7 % (40.0-70.0); PLATELET COUNT (AUTO) 289 K/uL (130-430); RED BLOOD CELL COUNT(AUTO) 3.93 MIL/uL (4.2-6.2); RED CELL DISTRIBUTION WIDTH 14.2 % (9.0-15.0); WHITE BLOOD COUNT (AUTO) 9.3 K/uL (4.8-10.8)
[2016-12-09 08:25] LABS: POTASSIUM 4.9 mmol/L (3.5-5.1)
[2016-12-09 08:32] LABS: CREATININE 11.6 mg/dL (0.55-1.30)
[2016-12-09 08:41] LABS: ALBUMIN 3.7 g/dL (3.4-4.8); TOTAL BILIRUBIN 0.4 mg/dL (0.0-1.0)
[2016-12-09] MEDS ORDERED: METOPROLOL TARTRATE 5 MG/5 ML VIAL IVP ONE (08:45)
[2016-12-09 09:09] LABS: PROTHROMBIN TIME 10.4 SECS (9.5-12.5)
[2016-12-09] MEDS ORDERED: MAGNESIUM CITRATE 300 ML ORAL SOLUTION PO ONE (09:15)
[2016-12-09] MEDS ORDERED: cloNIDine HCL 0.1 MG TABLET PO ONE (09:15)
[2016-12-09 09:55] VITALS: BP_SYST 197
== END 2016-12-09 09:55 | disposition home or self-care (01) ==
LOC: SED 06:54
DX: K31.84 Gastroparesis (principal); I12.0 Hypertensive chronic kidney disease with stage 5 chronic kidney disease or end stage renal disease; E11.22 Type 2 diabetes mellitus with diabetic chronic kidney disease; N18.6 End stage renal disease; H54.0 Blindness, both eyes; Z99.2 Dependence on renal dialysis; Z98.890 Other specified postprocedural states; Z88.6 Allergy status to analgesic agent; Z79.899 Other long term (current) drug therapy
CPT/HCPCS: 36415; 71010; 74020; 80053; 83690; 85025; 85610; 85730; 93005; 96361; 96374; 96375; 99285; J1170; J1200; J2001; J3490; J7030

== ENCOUNTER 2016-12-15 07:47 | Inpatient (IN) | payer OTHER, MEDICAID ==
[~2016-12-15] VITALS: Ht 172.7 cm; Wt 112.5 kg
[2016-12-15] VITALS (15 sets, daily range): BP systolic 130–239
[2016-12-15] MEDS ORDERED: NACL 0.9% 1,000 ML IV ONE (07:56)
[2016-12-15] MEDS ORDERED: HYDROmorphone 1 MG INJ. 1 MG/ML AMPUL IM ONE (08:00)
[2016-12-15] MEDS ORDERED: METOPROLOL TARTRATE 5 MG/5 ML VIAL IVP ONE (08:00)
[2016-12-15] MEDS ORDERED: cloNIDine HCL 0.1 MG TABLET PO ONE (08:00)
[2016-12-15] MEDS ORDERED: METOCLOPRAMIDE HCL 10 MG/2 ML VIAL IVP ONE (08:00)
[2016-12-15 08:16] LABS: BASOPHILS # (AUTO) 0.1 K/uL (0.0-0.2); BASOPHILS % (AUTO) 0.5 % (0.0-2.0); EOSINOPHILS # (AUTO) 0.2 K/uL (0.0-0.4); EOSINOPHILS % (AUTO) 1.6 % (0.0-4.0); HEMATOCRIT 27.6 % (36-54); HEMOGLOBIN 9.1 g/dL (14.0-18.0); LYMPHOCYTES # (AUTO) 2.4 K/uL (1.0-5.5); LYMPHOCYTES % (AUTO) 19.6 % (20.5-51.5); MEAN CORPUSCULAR HEMOGLOBIN 31 pg (27-31); MEAN CORPUSCULAR HGB CONC 33 % (32-36); MEAN CORPUSCULAR VOLUME 94 fL (79.0-98.0); MONOCYTES # (AUTO) 0.8 K/uL (0.0-1.0); MONOCYTES % (AUTO) 6.5 % (1.7-9.3); NEUTROPHILS # (AUTO) 8.6 K/uL (1.8-7.7); NEUTROPHILS % (AUTO) 71.8 % (40.0-70.0); PLATELET COUNT (AUTO) 205 K/uL (130-430); RED BLOOD CELL COUNT(AUTO) 2.96 MIL/uL (4.2-6.2); RED CELL DISTRIBUTION WIDTH 14.5 % (9.0-15.0); WHITE BLOOD COUNT (AUTO) 12.1 K/uL (4.8-10.8)
[2016-12-15 08:49] LABS: ALBUMIN 3.1 g/dL (3.4-4.8); CALCIUM 8.8 mg/dL (8.4-11.0); POTASSIUM 5.2 mmol/L (3.5-5.1); TOTAL BILIRUBIN 0.4 mg/dL (0.0-1.0)
[2016-12-15 08:51] LABS: CREATININE 13.78 mg/dL (0.55-1.30)
[2016-12-15] MEDS ORDERED: HYDROmorphone 1 MG INJ. 1 MG/ML AMPUL IVP ONE (09:00)
[2016-12-15] MEDS ORDERED: BRIMONIDINE TARTRATE 0.2% 5 mL EYE DROPS OP ONE (09:15)
[2016-12-15] MEDS ORDERED: GABAPENTIN 300 MG CAPSULE PO ONE (09:15)
[2016-12-15] MEDS ORDERED: METOCLOPRAMIDE HCL 10 MG TABLET PO PRN (09:15)
[2016-12-15] MEDS ORDERED: METHOCARBAMOL 500 MG TABLET PO ONE (09:15)
[2016-12-15] MEDS: METOPROLOL TARTRATE 5 MG/5 ML VIAL IVP PRN ×2 (11:14→15:34)
[2016-12-15] MEDS ORDERED: METOPROLOL TARTRATE 5 MG/5 ML VIAL ONE (11:21)
[2016-12-15] MEDS: CINACALCET HCL 30 MG TABLET PO SCH (11:25)
[2016-12-15] MEDS ORDERED: ONDANSETRON HCL 4 MG/2 ML VIAL IVP PRN (11:45)
[2016-12-15] MEDS ORDERED: HYDROmorphone 1 MG INJ. 1 MG/ML AMPUL IM PRN (11:45)
[2016-12-15] MEDS ORDERED: MINERAL OIL 133 ML ENEMA RC ONE (11:45)
[2016-12-15] MEDS: METOCLOPRAMIDE HCL 10 MG/2 ML VIAL IVP SCH ×4 (12:08→23:16)
[2016-12-15] MEDS ORDERED: VANCOMYCIN HCL 1 GM/NS PREMIX 250 ML IV ONE (12:15)
[2016-12-15] MEDS ORDERED: NITROGLYCERIN 250 ML IV PRN (12:15)
[2016-12-15] MEDS ORDERED: NITROGLYCERIN 250 ML IV ONE (12:30)
[2016-12-15] MEDS: HYDROmorphone 1 MG INJ. 1 MG/ML AMPUL IM PRN ×3 (13:08→21:19)
[2016-12-15] MEDS: hydrALAZINE HCL 25 MG TABLET PO SCH ×2 (13:33→21:20)
[2016-12-15] MEDS: cloNIDine HCL 0.2 MG TABLET PO SCH ×2 (13:33→21:21)
[2016-12-15] MEDS: cefTRIAXone 1 GM in D5W 50 ML IV SCH (13:34)
[2016-12-15] MEDS: GABAPENTIN 300 MG CAPSULE PO SCH ×2 (14:58→20:35)
[2016-12-15] MEDS ORDERED: HEPARIN SODIUM, PORCINE 10,000 UNITS/ 10 ML VIAL MC ONE (16:45)
[2016-12-15] MEDS: INSULIN ASPART 100 UNITS/ML, 10 ML VIAL (NovoLOG) SUBCUT PRN (17:11)
[2016-12-15] MEDS: VALSARTAN 160 MG TABLET (DIOVAN) PO SCH (20:35)
[2016-12-15] MEDS: METHOCARBAMOL 500 MG TABLET PO SCH (20:36)
[2016-12-15] MEDS: METOPROLOL TARTRATE 50 MG TABLET PO SCH (20:36)
[2016-12-15] MEDS: FUROSEMIDE 40 MG TABLET PO SCH (20:37)
[2016-12-15] MEDS: TIMOLOL MALEATE 0.5% OPHTHALMIC DROPS 5 ML OP SCH (20:39)
[2016-12-15] MEDS: LATANOPROST 2.5 ML DROPS (XALATAN) OP SCH (20:39)
[2016-12-15] MEDS: BRIMONIDINE TARTRATE 0.2% 5 mL EYE DROPS OP SCH (20:40)
[2016-12-16] VITALS (13 sets, daily range): BP systolic 146–217
[2016-12-16] MEDS ORDERED: ALBUMIN HUMAN 25% 100 ML IV ONE (02:30)
[2016-12-16] MEDS: HYDROmorphone 1 MG INJ. 1 MG/ML AMPUL IM PRN ×3 (05:01→13:24)
[2016-12-16] MEDS: METOCLOPRAMIDE HCL 10 MG/2 ML VIAL IVP SCH ×4 (05:01→23:06)
[2016-12-16] MEDS: cloNIDine HCL 0.2 MG TABLET PO SCH ×3 (05:02→22:00)
[2016-12-16] MEDS: hydrALAZINE HCL 25 MG TABLET PO SCH ×3 (05:24→22:00)
[2016-12-16] MEDS ORDERED: hydrALAZINE HCL 25 MG TABLET ONE (05:26)
[2016-12-16 06:31] LABS: EOSINOPHILS # (AUTO) 0.1 K/uL (0.0-0.4); EOSINOPHILS % (AUTO) 0.8 % (0.0-4.0); HEMATOCRIT 27.5 % (36-54); HEMOGLOBIN 9.3 g/dL (14.0-18.0); LYMPHOCYTES # (AUTO) 1.8 K/uL (1.0-5.5); LYMPHOCYTES % (AUTO) 14.7 % (20.5-51.5); MEAN CORPUSCULAR HEMOGLOBIN 32 pg (27-31); MEAN CORPUSCULAR HGB CONC 34 % (32-36); MEAN CORPUSCULAR VOLUME 93 fL (79.0-98.0); MONOCYTES # (AUTO) 0.8 K/uL (0.0-1.0); MONOCYTES % (AUTO) 6.3 % (1.7-9.3); NEUTROPHILS # (AUTO) 9.8 K/uL (1.8-7.7); NEUTROPHILS % (AUTO) 78.2 % (40.0-70.0); PLATELET COUNT (AUTO) 190 K/uL (130-430); RED BLOOD CELL COUNT(AUTO) 2.96 MIL/uL (4.2-6.2); RED CELL DISTRIBUTION WIDTH 14.4 % (9.0-15.0); WHITE BLOOD COUNT (AUTO) 12.5 K/uL (4.8-10.8)
[2016-12-16 06:32] LABS: CALCIUM 8.4 mg/dL (8.4-11.0); POTASSIUM 3.8 mmol/L (3.5-5.1)
[2016-12-16 06:36] LABS: CREATININE 8.83 mg/dL (0.55-1.30)
[2016-12-16] MEDS: METOPROLOL TARTRATE 50 MG TABLET PO SCH ×2 (08:43→21:14)
[2016-12-16] MEDS: PANTOPRAZOLE SODIUM 40 MG TAB PO SCH (08:44)
[2016-12-16] MEDS: VALSARTAN 160 MG TABLET (DIOVAN) PO SCH ×2 (08:48→21:13)
[2016-12-16] MEDS: FUROSEMIDE 40 MG TABLET PO SCH ×2 (08:49→21:14)
[2016-12-16] MEDS: GABAPENTIN 300 MG CAPSULE PO SCH ×3 (08:50→21:14)
[2016-12-16] MEDS: METHOCARBAMOL 500 MG TABLET PO SCH ×2 (08:50→21:14)
[2016-12-16] MEDS: CINACALCET HCL 30 MG TABLET PO SCH (09:00)
[2016-12-16] MEDS ORDERED: CINACALCET HCL 30 MG TABLET PO SCH (09:00)
[2016-12-16] MEDS: BRIMONIDINE TARTRATE 0.2% 5 mL EYE DROPS OP SCH ×2 (11:26→21:13)
[2016-12-16] MEDS: METOPROLOL TARTRATE 5 MG/5 ML VIAL IVP PRN (11:26)
[2016-12-16] MEDS: TIMOLOL MALEATE 0.5% OPHTHALMIC DROPS 5 ML OP SCH ×2 (11:27→21:12)
[2016-12-16] MEDS: cefTRIAXone 1 GM in D5W 50 ML IV SCH (13:29)
[2016-12-16] MEDS: HYDROmorphone 1 MG INJ. 1 MG/ML AMPUL IV PRN ×2 (18:47→23:07)
[2016-12-16] MEDS: LATANOPROST 2.5 ML DROPS (XALATAN) OP SCH (21:12)
[2016-12-17] VITALS (9 sets, daily range): BP systolic 141–184
[2016-12-17] MEDS: HYDROmorphone 1 MG INJ. 1 MG/ML AMPUL IV PRN ×6 (03:04→20:02)
[2016-12-17] MEDS: METOPROLOL TARTRATE 5 MG/5 ML VIAL IVP PRN ×2 (03:08→10:26)
[2016-12-17] MEDS: cloNIDine HCL 0.2 MG TABLET PO SCH ×3 (05:26→23:13)
[2016-12-17] MEDS: hydrALAZINE HCL 25 MG TABLET PO SCH ×3 (05:27→23:13)
[2016-12-17] MEDS: METOCLOPRAMIDE HCL 10 MG/2 ML VIAL IVP SCH ×4 (05:28→23:12)
[2016-12-17 06:56] LABS: BASOPHILS # (AUTO) 0.1 K/uL (0.0-0.2); BASOPHILS % (AUTO) 0.5 % (0.0-2.0); EOSINOPHILS # (AUTO) 0.2 K/uL (0.0-0.4); EOSINOPHILS % (AUTO) 1.6 % (0.0-4.0); HEMOGLOBIN 9.3 g/dL (14.0-18.0); LYMPHOCYTES # (AUTO) 1.6 K/uL (1.0-5.5); MEAN CORPUSCULAR HEMOGLOBIN 31 pg (27-31); MEAN CORPUSCULAR HGB CONC 33 % (32-36); MEAN CORPUSCULAR VOLUME 93 fL (79.0-98.0); MONOCYTES # (AUTO) 0.8 K/uL (0.0-1.0); MONOCYTES % (AUTO) 6.4 % (1.7-9.3); NEUTROPHILS # (AUTO) 9.3 K/uL (1.8-7.7); NEUTROPHILS % (AUTO) 78.5 % (40.0-70.0); PLATELET COUNT (AUTO) 204 K/uL (130-430); RED BLOOD CELL COUNT(AUTO) 3.01 MIL/uL (4.2-6.2); RED CELL DISTRIBUTION WIDTH 14.2 % (9.0-15.0)
[2016-12-17 07:09] LABS: CALCIUM 8.5 mg/dL (8.4-11.0); POTASSIUM 3.9 mmol/L (3.5-5.1)
[2016-12-17 07:11] LABS: CREATININE 10.63 mg/dL (0.55-1.30)
[2016-12-17] MEDS ORDERED: DOCUSATE SODIUM 100 MG CAPSULE PO PRN (08:15)
[2016-12-17] MEDS: GABAPENTIN 300 MG CAPSULE PO SCH ×3 (08:21→20:06)
[2016-12-17] MEDS: CINACALCET HCL 30 MG TABLET PO SCH (08:21)
[2016-12-17] MEDS: METOPROLOL TARTRATE 50 MG TABLET PO SCH ×2 (08:21→20:05)
[2016-12-17] MEDS: PANTOPRAZOLE SODIUM 40 MG TAB PO SCH (08:21)
[2016-12-17] MEDS: TIMOLOL MALEATE 0.5% OPHTHALMIC DROPS 5 ML OP SCH ×2 (08:23→20:12)
[2016-12-17] MEDS: BRIMONIDINE TARTRATE 0.2% 5 mL EYE DROPS OP SCH ×2 (08:24→20:12)
[2016-12-17] MEDS: METHOCARBAMOL 500 MG TABLET PO SCH ×2 (10:23→20:06)
[2016-12-17] MEDS: FUROSEMIDE 40 MG TABLET PO SCH ×2 (10:24→20:06)
[2016-12-17] MEDS: VALSARTAN 160 MG TABLET (DIOVAN) PO SCH ×2 (10:24→20:05)
[2016-12-17] MEDS: POLYETHYLENE GLYCOL 3350, 17 GM/ POWD.PACK PO SCH (11:32)
[2016-12-17] MEDS: cefTRIAXone 1 GM in D5W 50 ML IV SCH (12:32)
[2016-12-17] MEDS: LATANOPROST 2.5 ML DROPS (XALATAN) OP SCH (20:12)
[2016-12-17] MEDS: INSULIN ASPART 100 UNITS/ML, 10 ML VIAL (NovoLOG) SUBCUT PRN (20:18)
[2016-12-18 00:14] VITALS: BP_SYST 143
[2016-12-18] MEDS: HYDROmorphone 1 MG INJ. 1 MG/ML AMPUL IV PRN ×4 (00:28→13:26)
[2016-12-18 04:05] VITALS: BP_SYST 148
[2016-12-18] MEDS: METOCLOPRAMIDE HCL 10 MG/2 ML VIAL IVP SCH ×2 (06:00→11:59)
[2016-12-18] MEDS: cloNIDine HCL 0.2 MG TABLET PO SCH ×2 (06:01→13:02)
[2016-12-18] MEDS: hydrALAZINE HCL 25 MG TABLET PO SCH ×2 (06:02→13:02)
[2016-12-18 08:07] VITALS: BP_SYST 145
[2016-12-18] MEDS: BRIMONIDINE TARTRATE 0.2% 5 mL EYE DROPS OP SCH (09:22)
[2016-12-18] MEDS: TIMOLOL MALEATE 0.5% OPHTHALMIC DROPS 5 ML OP SCH (09:22)
[2016-12-18] MEDS: VALSARTAN 160 MG TABLET (DIOVAN) PO SCH (09:25)
[2016-12-18] MEDS: METHOCARBAMOL 500 MG TABLET PO SCH (09:25)
[2016-12-18] MEDS: FUROSEMIDE 40 MG TABLET PO SCH (09:27)
[2016-12-18] MEDS: METOPROLOL TARTRATE 50 MG TABLET PO SCH (09:28)
[2016-12-18] MEDS: GABAPENTIN 300 MG CAPSULE PO SCH ×2 (09:28→14:40)
[2016-12-18] MEDS: PANTOPRAZOLE SODIUM 40 MG TAB PO SCH (09:28)
[2016-12-18] MEDS: CINACALCET HCL 30 MG TABLET PO SCH (09:28)
[2016-12-18] MEDS: POLYETHYLENE GLYCOL 3350, 17 GM/ POWD.PACK PO SCH (09:28)
[2016-12-18] MEDS: INSULIN ASPART 100 UNITS/ML, 10 ML VIAL (NovoLOG) SUBCUT PRN (11:58)
[2016-12-18] MEDS: cefTRIAXone 1 GM in D5W 50 ML IV SCH (12:00)
[2016-12-18 12:22] VITALS: BP_SYST 147
[2016-12-18 12:36] VITALS: BP_SYST 147
[2016-12-18] MEDS ORDERED: OXYC-133 PO (14:17)
== END 2016-12-18 15:50 | disposition home or self-care (01) | DRG 682 ==
LOC: SED 07:47 → STU 09:19 → SIC 10:20 → STU 12-16 11:16
PROVIDERS: ADMIT Family Medicine; ATTEND Family Medicine
PROC: 5A1D70Z Performance of Urinary Filtration, Intermittent, Less than 6 Hours Per Day (ICD-10-PCS; principal; 2016-12-16)
DX: I13.11 Hypertensive heart and chronic kidney disease without heart failure, with stage 5 chronic kidney disease, or end stage renal disease (principal); J18.9 Pneumonia, unspecified organism; E11.22 Type 2 diabetes mellitus with diabetic chronic kidney disease; K31.84 Gastroparesis; E11.43 Type 2 diabetes mellitus with diabetic autonomic (poly)neuropathy; E66.01 Morbid (severe) obesity due to excess calories; E11.319 Type 2 diabetes mellitus with unspecified diabetic retinopathy without macular edema; I50.9 Heart failure, unspecified; N18.6 End stage renal disease; I16.9 Hypertensive crisis, unspecified; I16.1 Hypertensive emergency; E87.5 Hyperkalemia; D63.1 Anemia in chronic kidney disease; G89.29 Other chronic pain; I16.0 Hypertensive urgency; Y84.8 Other medical procedures as the cause of abnormal reaction of the patient, or of later complication, without mention of misadventure at the time of the procedure; Z83.3 Family history of diabetes mellitus; Z91.15 Patient's noncompliance with renal dialysis; Z91.19 Patient's noncompliance with other medical treatment and regimen; Z99.2 Dependence on renal dialysis; Z68.37 Body mass index [BMI] 37.0-37.9, adult
CPT/HCPCS: 36415; 36600; 71010; 74000-TC; 78264-TC; 80048; 80053; 82803-TC; 82962; 83690-TC; 83880; 84484; 85025; 87040-TC; 87081; 90935; 90937; 93005; 96361; 96372; 96374; 96375; 99285; A9541; J0696; J1170; J1644; J1815; J2405; J2765; J3370; J3490; J7030; J7050; J7060

== ENCOUNTER 2016-12-25 21:26 | Inpatient (IN) | payer OTHER, MEDICAID ==
[~2016-12-25] VITALS: Ht 177.8 cm; Wt 115.8 kg
--- NOTE | 2016-12-25 21:29 | NUR ---
Patient to ER bed 4 to gown for evaluation. Side rails up. Report given to Hunter SOUTH.
--- NOTE | 2016-12-25 21:30 | NUR ---
Patient arrived to ED a/o x 4 with c/o ABD pain since last night. Patient reports 10/10 epigastric pain that does not radiate. Patient has Hx of gastroparesis. States he has nausea without vomiting. Patient was recently admitted to hospital for same reason. Denies fever. Patient has chronic opioid dependency. Upon arrival patient has BP of 210/136. Hx of HTN and DM. Patient has bilateral blindness. Mother at bedside.
[2016-12-25 21:33] VITALS: BP_SYST 240
--- NOTE | 2016-12-25 21:50 | NUR ---
20 gauge angiocath placed to left AC. Use of asceptic technique. Opsite placed over site. Blood return noted. Flushed with 10 cc of normal saline. No evidence of infiltration noted. Patient tolerated well.
--- NOTE | 2016-12-25 22:25 | NUR ---
ED MD Mane at bedside for medical evaluation.
[2016-12-25] MEDS ORDERED: HYDROmorphone 2 MG/ML VIAL IVP ONE (22:30)
[2016-12-25] MEDS ORDERED: METOCLOPRAMIDE HCL 10 MG/2 ML VIAL IVP ONE (22:30)
--- NOTE | 2016-12-25 23:12 | NUR ---
Patient reports pain 8/10 30 minutes after administration of 2mg Dilaudid IVP. No adverse reactions noted. Will continue to monitor.
[2016-12-26] VITALS (22 sets, daily range): BP systolic 146–231
[2016-12-26] MEDS ORDERED: HYDROmorphone 2 MG/ML VIAL IVP ONE
[2016-12-26] MEDS ORDERED: HALOPERIDOL LACTATE 5 MG/ML VIAL IVP ONE
[2016-12-26] MEDS ORDERED: DIPHENHYDRAMINE INJ 50 MG/ML VIAL IVP ONE
--- NOTE | 2016-12-26 00:18 | NUR ---
Patient oxygen saturation 88% on room air. ED MD Mane made aware. Patient placed on 2L via nasal canula.
--- NOTE | 2016-12-26 00:20 | NUR ---
ED MD Mane at bedside reassessing patient.
[2016-12-26] MEDS ORDERED: hydrALAZINE HCL 20 MG/ML VIAL IVP ONE (00:30)
--- NOTE | 2016-12-26 00:40 | NUR ---
Patient placed on 15L non-rebreather mask. Patient displays SpO2 of 198% at this time. No increased work of breathing.
--- NOTE | 2016-12-26 00:43 | NUR ---
20 gauge angiocath placed to right AC. Use of asceptic technique. Opsite placed over site. Blood return noted. Blood for lab drawn from site. Flushed with 10 cc of normal saline. No evidence of infiltration noted. Patient tolerated well.
[2016-12-26 00:48] LABS: EOSINOPHILS # (AUTO) 0.1 K/uL (0.0-0.4); EOSINOPHILS % (AUTO) 0.7 % (0.0-4.0); HEMOGLOBIN 10.9 g/dL (14.0-18.0)
--- NOTE | 2016-12-26 00:48 | NUR ---
Patient reports pain 6/10 30 minutes after administration of 2mg Dilaudid IVP.
[2016-12-26 00:59] LABS: BASOPHILS # (AUTO) 0.2 K/uL (0.0-0.2); BASOPHILS % (AUTO) 1.3 % (0.0-2.0); HEMATOCRIT 32.1 % (36-54); LYMPHOCYTES # (AUTO) 1.8 K/uL (1.0-5.5); LYMPHOCYTES % (AUTO) 11.2 % (20.5-51.5); MEAN CORPUSCULAR HEMOGLOBIN 31 pg (27-31); MEAN CORPUSCULAR HGB CONC 34 % (32-36); MEAN CORPUSCULAR VOLUME 93 fL (79.0-98.0); MONOCYTES # (AUTO) 0.5 K/uL (0.0-1.0); MONOCYTES % (AUTO) 3.4 % (1.7-9.3); NEUTROPHILS # (AUTO) 13.1 K/uL (1.8-7.7); NEUTROPHILS % (AUTO) 83.4 % (40.0-70.0); PLATELET COUNT (AUTO) 330 K/uL (130-430); RED BLOOD CELL COUNT(AUTO) 3.46 MIL/uL (4.2-6.2); WHITE BLOOD COUNT (AUTO) 15.7 K/uL (4.8-10.8)
--- NOTE | 2016-12-26 01:03 | NUR ---
Patient transported off unit for CT via gurney by radiology staff.
--- NOTE | 2016-12-26 01:12 | NUR ---
Patient returned to unit from CT.
--- NOTE | 2016-12-26 01:15 | NUR ---
Medication reconciliation completed with information provided by - mother. Any prior medication reconciliation on file was reviewed and corrected.
--- NOTE | 2016-12-26 01:25 | NUR ---
Laboratory at bedside.
[2016-12-26] MEDS ORDERED: LABETALOL 100 MG/ 20ML VIAL IVP ONE (01:30)
--- NOTE | 2016-12-26 01:43 | NUR ---
15 minutes after administration of labetalol. No adverse reactions noted. Will continue to monitor.
[2016-12-26 02:12] LABS: CALCIUM 9.5 mg/dL (8.4-11.0)
[2016-12-26 02:13] LABS: POTASSIUM 6.2 mmol/L (3.5-5.1)
[2016-12-26 02:14] LABS: CREATININE 10.01 mg/dL (0.55-1.30)
[2016-12-26] MEDS ORDERED: NITROGLYCERIN 250 ML IV ONE ×2 (02:15)
[2016-12-26 02:25] LABS: ALBUMIN 3.8 g/dL (3.4-4.8); TOTAL BILIRUBIN 0.6 mg/dL (0.0-1.0)
[2016-12-26] MEDS ORDERED: DEXTROSE 50% JECT 50 ML DISP.SYRIN IVP ONE (02:30)
[2016-12-26] MEDS ORDERED: INSULIN REGULAR, HUMAN 10 UNITS/0.1 ML INJ IVP ONE (02:30)
[2016-12-26] MEDS ORDERED: NACL 0.9% 1,000 ML IV SCH (02:35)
[2016-12-26] MEDS ORDERED: MORPHINE 2 MG/ML INJ. SYRINGE IVP PRN (02:45)
[2016-12-26] MEDS ORDERED: ACETAMINOPHEN 325 MG TABLET PO PRN (02:45)
--- NOTE | 2016-12-26 02:53 | NUR ---
Called Dr Rojas exchange for Dialysis order. Dr Rucker covering for Dr Rojas. Awaiting call back.
--- NOTE | 2016-12-26 03:09 | NUR ---
Patient will be admitted to care of Dr Lee. Admitted to ICU unit. Will go to room 5. Belongings list completed. Summary report printed. Report will be given at bedside.
--- NOTE | 2016-12-26 03:11 | NUR ---
Transfer to ICU 5 via ACLS protocol. Licensed nurse present. IV present no signs or symptoms of infiltration.
[2016-12-26] MEDS ORDERED: INSULIN REGULAR, HUMAN 100 UNITS/ML, 10 ML VIAL (novoLIN R) SUBCUT PRN (03:15)
--- NOTE | 2016-12-26 03:20 | NUR ---
Admission assessment: Received patient from ER via [place] to ICU 5 with a DX of HTN. Patient is AAO x 3. Patient on 100% non-rebreather mask, saturating at 97%, patient refused oxygen, mask removed, pt. saturating at 96% on room air. IV site: 20G RAC infusing Nitroglycerin drip at 5mcg/min. IV site: 20G LAC on saline lock. Pt. has permacath on R chest, dressing intact. Pt. SR on quality assurance monitor chassis. Patient is complaining of pain "all over" and demanding pain medication, but patient easily fell asleep. Skin intact. Will continue to monitor.
--- NOTE | 2016-12-26 04:00 | NUR ---
MD rounds Dr. Osei at bedside discussing plan of care with mother. Awaiting new orders.
[2016-12-26] MEDS ORDERED: BRIMONIDINE TARTRATE 0.2% 5 mL EYE DROPS OP PRN (05:00)
[2016-12-26] MEDS ORDERED: GABAPENTIN 300 MG CAPSULE PO SCH (05:00)
[2016-12-26] MEDS ORDERED: OXYCODONE/ACETAMINOPHEN *10*mg/325 mg TABLET PO PRN (05:00)
[2016-12-26] MEDS ORDERED: NITROGLYCERIN 250 ML IV PRN (05:00)
[2016-12-26] MEDS ORDERED: METOCLOPRAMIDE HCL 10 MG TABLET PO PRN (05:00)
[2016-12-26] MEDS ORDERED: METHOCARBAMOL 500 MG TABLET PO PRN (05:00)
[2016-12-26] MEDS ORDERED: METOCLOPRAMIDE HCL 10 MG/2 ML VIAL IVP PRN (05:15)
[2016-12-26 05:19] LABS: FREE T4 (FREE THYROXINE) 0.9 ng/dl (0.8-1.5); PHOSPHORUS 8.3 mg/dL (2.7-4.5); THYROID STIMULATING HORMONE 1.94 uIu/mL (0.36-3.74)
[2016-12-26] MEDS: SODIUM POLYSTYRENE SULFONATE 15 GM/60 ML UDBTL PO SCH ×2 (05:30→11:55)
[2016-12-26] MEDS ORDERED: cefTRIAXone 1 GM IVPB PREMIX 50 ML IV ONE (05:49)
[2016-12-26] MEDS ORDERED: cefTRIAXone 1 GM in D5W 50 ML IV SCH (06:00)
[2016-12-26] MEDS: METOCLOPRAMIDE HCL 10 MG/2 ML VIAL IVP SCH ×3 (06:30→21:00)
--- NOTE | 2016-12-26 06:40 | NUR ---
RN Rounds: Pt complains of pain, pain med administered as ordered. Will continue to monitor.
[2016-12-26] MEDS: HYDROmorphone 1 MG INJ. 1 MG/ML AMPUL IM PRN ×5 (06:41→22:59)
--- NOTE | 2016-12-26 06:44 | NUR ---
Nutrition Update Buddy Scale 15 noted. Pt admitted for HTN. Diet: N/A BMI: 17.2 kg/m2 RD to follow per nutrition care standards.
--- NOTE | 2016-12-26 07:25 | NUR ---
RECEIVED REPORT AND PT ALERT AND CRYING IN BED. STATES HE DOESN'T FEEL GOOD. BP VERY ELEVATED 240/130 AND NTG DRIP AT 40 MCGS. NTG INCREASED TO [address] ON MONITOR RATE 105. PT REFUSES O2 ORDERED AND SATS 95% ON ROOM AIR. LUNGS DIMINISHED BILATERALLY. C/O PAIN ALL OVER AND WANTS TO KNOW WHEN PAIN MED IS DUE. PT INFORMED. PT HANGING OVER EMESIS BASIN AND HAS OCCASIONAL BOUTS OF EMESIS/ GREEN BILE. IV TO RIGHT AC INFUSING NTG DRIP AND IVF AT 60 CC/HR. PT HAD A LEFT ARM IV BUT WE FOUND IT PULLED OUT. NO SWELLING. PT DOES NOT MAKE URINE. WILL CONTINUE TO MONITOR PT.
--- NOTE | 2016-12-26 07:25 | NUR ---
End of shift Patient VSS. No signs of distress, re-assessed pain and pt verbalized pain level of 5. Endorsed UA collection and SCD to day shift. Day shift RN made aware that mother of the patient will confirm if flu vaccine of pt is current.
[2016-12-26] MEDS ORDERED: niCARdipine 25 MG in D5W 240 ML IV PRN (07:30)
--- NOTE | 2016-12-26 07:30 | NUR ---
AM ASSESSMENT Pt received from night RN, laying in bed with eyes closed with basin next to him for feelings of nauseousness. Blood pressure 220 /125, pt currently on Nitro drip 40mcg. N.S. running at 60cc/hr in right A.C. IV patent with blood return. Discontinue the Left S.L. found outside of pt skin. Pt complaining of Abd. pain, refused to let nurse observe or palpate. Will continue to monitor patient.
[2016-12-26] MEDS: ONDANSETRON HCL 4 MG/2 ML VIAL IVP PRN ×2 (08:50→18:54)
--- NOTE | 2016-12-26 08:50 | NUR ---
PT WANTS TO GET OOB AND EDUCATED THAT HE IS ON A NITRO DRIP FOR HIS BP WHICH IS 224/139 AND THAT IT IS NOT ADVISABLE. CURRENTLY ON NTG DRIP AT 120 MCGS. PT ASSISTED BACK TO BED. MEDICATED WITH ZOFRAN FOR NAUSEA/VOMITING GREEN BILE.
--- NOTE | 2016-12-26 08:54 | NUR ---
DR BOWMAN IN TO SEE PT. ORDERS LEFT. WOULD LIKE STAFF TO USE THE BLUE PORT OF PERMACATH FOR IV ACCESS INCLUDING CONTINUOUS INFUSION OF DRIPS TO BE GIVEN BY DIALYSIS NURSE DURING DIALYSIS IF NEEDED," JUST LIKE THEY GIVE BLOOD".
[2016-12-26] MEDS ORDERED: PANTOPRAZOLE SODIUM 40 MG TAB PO SCH (09:00)
[2016-12-26] MEDS ORDERED: CINACALCET HCL 30 MG TABLET PO SCH (09:00)
[2016-12-26] MEDS ORDERED: PANTOPRAZOLE SODIUM 40 MG/VIAL (PROTONIX) IVP SCH (09:00)
[2016-12-26] MEDS: DOCUSATE SODIUM 100 MG CAPSULE PO SCH ×2 (09:03→20:46)
[2016-12-26] MEDS: LACTULOSE 20 GM/30 ML UDC PO SCH ×2 (09:03→20:45)
[2016-12-26] MEDS: METOPROLOL TARTRATE 50 MG TABLET PO SCH ×2 (09:04→20:46)
[2016-12-26] MEDS: FUROSEMIDE 40 MG TABLET PO SCH ×2 (09:04→20:46)
[2016-12-26] MEDS: VALSARTAN 160 MG TABLET (DIOVAN) PO SCH ×2 (09:05→20:46)
[2016-12-26] MEDS: BRIMONIDINE TARTRATE 0.2% 5 mL EYE DROPS OP SCH ×2 (09:06→20:49)
--- NOTE | 2016-12-26 09:34 | NUR ---
NTG DRIP AT 150 MCGS ANG BP 223/139. NTG STOPPED AND NICARDIPINE DRIP STARTED AT 5 MG/HR.
--- NOTE | 2016-12-26 10:35 | NUR ---
Lactic Acid [facility]. - [facility], called re. Lactic Acid blood drawl w/in 1 hour. Order made in EMR and Miriam from the Lab has been contacted.
--- NOTE | 2016-12-26 11:00 | NUR ---
NICARDIPINE DRIP DECREASED TO 2.5MG/HR. BP 162/97
[2016-12-26 11:30] LABS: CALCIUM 9.3 mg/dL (8.4-11.0)
--- NOTE | 2016-12-26 11:45 | NUR ---
DIALYSIS STARTED. NICARDIPINE DRIP OFF.
[2016-12-26 11:46] LABS: CREATININE 10.92 mg/dL (0.55-1.30); POTASSIUM 6.2 mmol/L (3.5-5.1)
[2016-12-26] MEDS: ALUMINUM HYDROXIDE 1920 mg/30 ML UDC PO SCH ×3 (12:00→18:54)
[2016-12-26] MEDS ORDERED: HEPARIN SODIUM,PORCINE 5000 UNITS/ML VIAL ONE (13:27)
[2016-12-26] MEDS ORDERED: HEPARIN SODIUM,PORCINE 5000 UNITS/ML VIAL SUBCUT ONE (13:30)
--- NOTE | 2016-12-26 14:45 | NUR ---
DIALYSIS COMPLETED. REMOVED 3000 CC FLUID. PT TOLERATED DIALYSIS WITHOUT PROBLEMS. SR AFTERWARDS. BP ELEVATED 191/110. NICARDIPINE 5MG/HR RESTARTED.
--- NOTE | 2016-12-26 15:18 | NUR ---
REFUSED CHG BATH. " I WANT TO BE LEFT ALONE."
--- NOTE | 2016-12-26 17:53 | NUR ---
Pt became physical Pt became verbally aggressive asking for pain medication, I stated that it's due at 1900 at that point he started yelling and used his right fist to punch himself in the head. His mother and aunt are in the room and rushed to his side to ask him to stop.
[2016-12-26] MEDS ORDERED: niCARdipine 2.5 MG/ML, 10 ML VIAL (CARDENE) IV ONE (18:11)
--- NOTE | 2016-12-26 19:10 | NUR ---
Closing Notes Pt resting in bed comfortably with zero pain. Vital signs stable HR 91, 164/92, O2 sat 92%. No signs of distress. Endorsed to evening RN.
--- NOTE | 2016-12-26 19:16 | NUR ---
Start of shift assessment Received patient AAO x 4, parents at bedside. SR on equipment monitor phototypesetting. IV site: 20G RAC infusing 0.9% NaCl at 60cc/hr, dressing intact, no redness or infiltration noted. Pt. has permacath on R chest, infusing Cardem at 2.5mg/hr. Dressing intact. Patient on room air saturating at 94%. Clear lung sounds heard bilateral upper and lower lobes. Bed locked, on lowest position. No signs of distress or discomfort noted. Will continue to monitor.
--- NOTE | 2016-12-26 23:05 | NUR ---
Patient wants to go home Patient is AAO x 4. Patient verbalized he wants to go home, explained to patient that he is on a medication to control his bp, mother is at bedside not saying anything. Patient insisted he wants to go home and leave, thoroughly explained to patient the consequences and worst case scenarios of his decision, patient is still firm on his decision to leave. Made charge nurse aware.
--- NOTE | 2016-12-26 23:25 | NUR ---
Charge nurse at bedside explaining to the patient and his mother the consequences of leaving.
--- NOTE | 2016-12-26 23:25 | NUR ---
pt insisting on going home. DR. San notified. pt wants to sign AMA. informed pt that he could even at home as his bp is so high.pt said I won't . bp at this time is 154/88. on cardene drip @2.5 mg /hr.
--- NOTE | 2016-12-26 23:35 | NUR ---
AMA, pt signed AMA.mother at bedside. when I said what MOM has to say, pt said its my decision not her. MOM kept quiet didn't say a word.I explained all complications what could happen , but pt still wants to go .
--- NOTE | 2016-12-26 23:40 | NUR ---
Assisted patient to the hospital entrance via wheelchair. Mother took all patients belongings with them.
[2016-12-27 08:17] LABS: T4 (THYROXINE) 6.6 ug/dL (4.5-12.0)
== END 2016-12-26 23:45 | disposition left against medical advice (07) | DRG 871 ==
LOC: SED 21:26 → STU 12-26 02:51 → SIC 12-26 03:11
PROVIDERS: ADMIT Family Medicine; ATTEND Family Medicine
PROC: 5A1D70Z Performance of Urinary Filtration, Intermittent, Less than 6 Hours Per Day (ICD-10-PCS; principal; 2016-12-26)
DX: A41.9 Sepsis, unspecified organism (principal); G93.41 Metabolic encephalopathy; J90 Pleural effusion, not elsewhere classified; D68.59 Other primary thrombophilia; E11.22 Type 2 diabetes mellitus with diabetic chronic kidney disease; E11.40 Type 2 diabetes mellitus with diabetic neuropathy, unspecified; K31.84 Gastroparesis; I12.0 Hypertensive chronic kidney disease with stage 5 chronic kidney disease or end stage renal disease; E11.319 Type 2 diabetes mellitus with unspecified diabetic retinopathy without macular edema; N18.6 End stage renal disease; E87.1 Hypo-osmolality and hyponatremia; N12 Tubulo-interstitial nephritis, not specified as acute or chronic; E11.65 Type 2 diabetes mellitus with hyperglycemia; E66.01 Morbid (severe) obesity due to excess calories; I16.0 Hypertensive urgency; D63.1 Anemia in chronic kidney disease; E78.5 Hyperlipidemia, unspecified; E83.39 Other disorders of phosphorus metabolism; H40.9 Unspecified glaucoma; E11.43 Type 2 diabetes mellitus with diabetic autonomic (poly)neuropathy; E87.5 Hyperkalemia; G89.29 Other chronic pain; R10.9 Unspecified abdominal pain; Z53.21 Procedure and treatment not carried out due to patient leaving prior to being seen by health care provider; Z88.8 Allergy status to other drugs, medicaments and biological substances; Z79.899 Other long term (current) drug therapy; Z88.6 Allergy status to analgesic agent; Z99.2 Dependence on renal dialysis; Z68.36 Body mass index [BMI] 36.0-36.9, adult
CPT/HCPCS: 36415; 70450-TC; 71010; 80048; 80053; 82150-TC; 82550-TC; 82962; 83036; 83605; 83690-TC; 83735-TC; 83880; 84100-TC; 84436; 84439; 84443-TC; 84479; 84484; 85025; 87040-TC; 87081; 90935; 93005; 96374; 96375; 96376; 99285; C9113; J0360; J0696; J1170; J1200; J1630; J1644; J1815; J2405; J2765; J3490; J7030; J7060

== ENCOUNTER 2016-12-31 13:48 | Emergency (ER) | payer OTHER, MEDICAID ==
[~2016-12-31] VITALS: Ht 177.8 cm; Wt 104.3 kg
[~2016-12-31 13:48] MED LIST changes: -CAT.2 PO; -HYDR100T25 PO
[2016-12-31] MEDS ORDERED: ONDANSETRON HCL 4 MG/2 ML VIAL IVP ONE (14:30)
[2016-12-31] MEDS ORDERED: HYDROmorphone 1 MG INJ. 1 MG/ML AMPUL IVP ONE ×3 (14:45→18:45)
[2016-12-31 14:47] LABS: EOSINOPHILS # (AUTO) 0.1 K/uL (0.0-0.4); EOSINOPHILS % (AUTO) 0.5 % (0.0-4.0); HEMATOCRIT 33.5 % (36-54); HEMOGLOBIN 11.4 g/dL (14.0-18.0); LYMPHOCYTES # (AUTO) 2.3 K/uL (1.0-5.5); LYMPHOCYTES % (AUTO) 18.2 % (20.5-51.5); MEAN CORPUSCULAR HEMOGLOBIN 32 pg (27-31); MEAN CORPUSCULAR HGB CONC 34 % (32-36); MEAN CORPUSCULAR VOLUME 93 fL (79.0-98.0); MONOCYTES # (AUTO) 0.8 K/uL (0.0-1.0); MONOCYTES % (AUTO) 6.4 % (1.7-9.3); PLATELET COUNT (AUTO) 398 K/uL (130-430); RED BLOOD CELL COUNT(AUTO) 3.61 MIL/uL (4.2-6.2); RED CELL DISTRIBUTION WIDTH 14.1 % (9.0-15.0); WHITE BLOOD COUNT (AUTO) 12.6 K/uL (4.8-10.8)
[2016-12-31 14:48] LABS: BASOPHILS % (AUTO) 0.1 % (0.0-2.0); NEUTROPHILS # (AUTO) 9.4 K/uL (1.8-7.7); NEUTROPHILS % (AUTO) 74.8 % (40.0-70.0)
[2016-12-31 15:00] LABS: CALCIUM 11.1 mg/dL (8.4-11.0); POTASSIUM 4.2 mmol/L (3.5-5.1)
[2016-12-31 15:04] LABS: ALBUMIN 4.4 g/dL (3.4-4.8); TOTAL BILIRUBIN 0.5 mg/dL (0.0-1.0)
[2016-12-31 15:07] LABS: CREATININE 7.84 mg/dL (0.55-1.30)
[2016-12-31] MEDS ORDERED: METOCLOPRAMIDE HCL 10 MG/2 ML VIAL IVP ONE (16:15)
[2016-12-31] MEDS ORDERED: hydrALAZINE HCL 20 MG/ML VIAL IVP ONE (17:00)
[2016-12-31] MEDS ORDERED: cloNIDine HCL 0.1 MG TABLET PO ONE (17:45)
[2016-12-31] MEDS ORDERED: LABETALOL 100 MG/ 20ML VIAL IVP ONE (18:00)
[2016-12-31] MEDS ORDERED: HYDROmorphone 1 MG INJ. 1 MG/ML AMPUL IM ONE (18:45)
[2016-12-31 19:10] VITALS: BP_SYST 204
== END 2016-12-31 19:10 | disposition home or self-care (01) ==
LOC: SED 13:48
DX: E11.43 Type 2 diabetes mellitus with diabetic autonomic (poly)neuropathy (principal); K31.84 Gastroparesis; I12.0 Hypertensive chronic kidney disease with stage 5 chronic kidney disease or end stage renal disease; E11.22 Type 2 diabetes mellitus with diabetic chronic kidney disease; N18.6 End stage renal disease; H54.7 Unspecified visual loss; Z99.2 Dependence on renal dialysis; Z79.4 Long term (current) use of insulin; Z88.5 Allergy status to narcotic agent; Z79.899 Other long term (current) drug therapy
CPT/HCPCS: 36415; 71010; 80053; 83690; 85025; 96374; 96375; 96376; 99285; J0360; J1170; J2405; J2765; J3490

== ENCOUNTER 2017-01-02 21:52 | Emergency (ER) | payer OTHER, MEDICAID ==
[~2017-01-02] VITALS: Ht 177.8 cm; Wt 104.3 kg
[2017-01-02 21:52] VITALS: BP_SYST 187
[2017-01-02] MEDS ORDERED: METOCLOPRAMIDE HCL 10 MG/2 ML VIAL IVP ONE (22:15)
[2017-01-02] MEDS ORDERED: NACL 0.9% 1,000 ML IV ONE (22:15)
[2017-01-02] MEDS ORDERED: HYDROmorphone 1 MG INJ. 1 MG/ML AMPUL IVP ONE ×2 (22:15→23:45)
[2017-01-02 23:33] LABS: BASOPHILS # (AUTO) 0.1 K/uL (0.0-0.2); BASOPHILS % (AUTO) 0.5 % (0.0-2.0); EOSINOPHILS % (AUTO) 0.1 % (0.0-4.0); HEMATOCRIT 31.8 % (36-54); HEMOGLOBIN 10.7 g/dL (14.0-18.0); LYMPHOCYTES % (AUTO) 18.1 % (20.5-51.5); MEAN CORPUSCULAR HEMOGLOBIN 31 pg (27-31); MEAN CORPUSCULAR HGB CONC 34 % (32-36); MEAN CORPUSCULAR VOLUME 94 fL (79.0-98.0); MONOCYTES # (AUTO) 0.8 K/uL (0.0-1.0); MONOCYTES % (AUTO) 7.4 % (1.7-9.3); NEUTROPHILS # (AUTO) 8.4 K/uL (1.8-7.7); NEUTROPHILS % (AUTO) 73.9 % (40.0-70.0); PLATELET COUNT (AUTO) 334 K/uL (130-430); RED CELL DISTRIBUTION WIDTH 14.6 % (9.0-15.0); WHITE BLOOD COUNT (AUTO) 11.3 K/uL (4.8-10.8)
[2017-01-02 23:37] LABS: CALCIUM 10.3 mg/dL (8.4-11.0); CREATININE 6.99 mg/dL (0.55-1.30)
[2017-01-02 23:40] LABS: PROTHROMBIN TIME 10.4 SECS (9.5-12.5)
[2017-01-02 23:41] LABS: TOTAL BILIRUBIN 0.5 mg/dL (0.0-1.0)
[2017-01-03] MEDS ORDERED: HYDROmorphone 1 MG INJ. 1 MG/ML AMPUL IVP ONE
[2017-01-03 00:15] VITALS: BP_SYST 184
== END 2017-01-03 00:15 | disposition home or self-care (01) ==
LOC: SED 21:52
DX: E11.43 Type 2 diabetes mellitus with diabetic autonomic (poly)neuropathy (principal); K31.84 Gastroparesis; E11.21 Type 2 diabetes mellitus with diabetic nephropathy; I10 Essential (primary) hypertension; Z99.2 Dependence on renal dialysis; Z79.899 Other long term (current) drug therapy; Z88.5 Allergy status to narcotic agent; Z88.8 Allergy status to other drugs, medicaments and biological substances
CPT/HCPCS: 36415; 80053; 83605; 84484; 85025; 85610; 85730; 93005; 96361; 96374; 96375; 96376; 99285; J1170 ×2; J2765; J7030

== ENCOUNTER 2017-02-17 06:57 | Emergency (ER) | payer OTHER, MEDICAID ==
[~2017-02-17] VITALS: Ht 177.8 cm; Wt 104.3 kg
[2017-02-17 06:57] VITALS: BP_SYST 195
[~2017-02-17 06:57] MED LIST changes: +HYDR-1115 PO; +LABE100T PO; -VALS160T2 PO
[2017-02-17] MEDS ORDERED: HYDROmorphone 1 MG INJ. 1 MG/ML AMPUL IVP ONE ×3 (07:30→11:00)
[2017-02-17] MEDS ORDERED: ONDANSETRON 4 MG ODT TAB PO ONE (07:30)
[2017-02-17 07:59] LABS: BASOPHILS # (AUTO) 0.1 K/uL (0.0-0.2); EOSINOPHILS # (AUTO) 0.2 K/uL (0.0-0.4); EOSINOPHILS % (AUTO) 2.3 % (0.0-4.0); HEMATOCRIT 25.6 % (36-54); HEMOGLOBIN 8.4 g/dL (14.0-18.0); LYMPHOCYTES # (AUTO) 1.2 K/uL (1.0-5.5); LYMPHOCYTES % (AUTO) 12.3 % (20.5-51.5); MEAN CORPUSCULAR HEMOGLOBIN 31 pg (27-31); MEAN CORPUSCULAR HGB CONC 33 % (32-36); MEAN CORPUSCULAR VOLUME 93 fL (79.0-98.0); MONOCYTES # (AUTO) 0.6 K/uL (0.0-1.0); MONOCYTES % (AUTO) 6.3 % (1.7-9.3); NEUTROPHILS # (AUTO) 7.3 K/uL (1.8-7.7); NEUTROPHILS % (AUTO) 78.1 % (40.0-70.0); PLATELET COUNT (AUTO) 236 K/uL (130-430); RED BLOOD CELL COUNT(AUTO) 2.75 MIL/uL (4.2-6.2); RED CELL DISTRIBUTION WIDTH 13.4 % (9.0-15.0); WHITE BLOOD COUNT (AUTO) 9.4 K/uL (4.8-10.8)
[2017-02-17] MEDS ORDERED: LABETALOL 100 MG/ 20ML VIAL IVP ONE ×2 (08:00→08:45)
[2017-02-17 08:03] LABS: CALCIUM 9.1 mg/dL (8.4-11.0)
[2017-02-17 08:05] LABS: PROTHROMBIN TIME 10.1 SECS (9.5-12.5)
[2017-02-17 08:08] LABS: ALBUMIN 3.5 g/dL (3.4-4.8); TOTAL BILIRUBIN 0.5 mg/dL (0.0-1.0)
[2017-02-17 08:11] LABS: CREATININE 10.31 mg/dL (0.55-1.30)
[2017-02-17 13:31] VITALS: BP_SYST 175
== END 2017-02-17 11:42 | disposition home or self-care (01) ==
LOC: SED 06:57
DX: E11.43 Type 2 diabetes mellitus with diabetic autonomic (poly)neuropathy (principal); K31.84 Gastroparesis; I12.0 Hypertensive chronic kidney disease with stage 5 chronic kidney disease or end stage renal disease; N18.6 End stage renal disease; I16.0 Hypertensive urgency; Z99.2 Dependence on renal dialysis
CPT/HCPCS: 36415; 71010; 80053; 85025; 85610; 93005; 96374; 96375; 96376; 99285; J1170; J3490; Q0162

== ENCOUNTER 2017-03-01 07:01 | Emergency (ER) | payer OTHER, MEDICAID ==
[~2017-03-01] VITALS: Ht 172.7 cm; Wt 103.4 kg
[2017-03-01 07:01] VITALS: BP_SYST 210
--- NOTE | 2017-03-01 07:02 | NUR ---
PATIENT BROUGHT IN BY MOTHER C/C ABD PAIN WITH VOMITING SINCE 330AM THIS MORNING, 5 EPISODES OF VOMITING, PLACED IN ROOM 4, ENDORSED CARE TO JAYJAY SOUTH.
--- NOTE | 2017-03-01 07:02 | NUR ---
Pt report received from BRANNON Goddard. Pt c/o LUQ abdominal pain with N/V since 03:00 this AM. No active vomiting noted at this time. Pt states "I think my gastroparesis is acting up."
[2017-03-01 07:57] LABS: BASOPHILS # (AUTO) 0.1 K/uL (0.0-0.2); BASOPHILS % (AUTO) 0.6 % (0.0-2.0); EOSINOPHILS # (AUTO) 0.1 K/uL (0.0-0.4); EOSINOPHILS % (AUTO) 0.7 % (0.0-4.0); HEMATOCRIT 28.3 % (36-54); HEMOGLOBIN 9.3 g/dL (14.0-18.0); LYMPHOCYTES # (AUTO) 2.4 K/uL (1.0-5.5); LYMPHOCYTES % (AUTO) 22.7 % (20.5-51.5); MEAN CORPUSCULAR HEMOGLOBIN 31 pg (27-31); MEAN CORPUSCULAR HGB CONC 33 % (32-36); MEAN CORPUSCULAR VOLUME 94 fL (79.0-98.0); MONOCYTES # (AUTO) 0.6 K/uL (0.0-1.0); MONOCYTES % (AUTO) 5.7 % (1.7-9.3); NEUTROPHILS # (AUTO) 7.3 K/uL (1.8-7.7); NEUTROPHILS % (AUTO) 70.3 % (40.0-70.0); PLATELET COUNT (AUTO) 236 K/uL (130-430); RED BLOOD CELL COUNT(AUTO) 3.02 MIL/uL (4.2-6.2); WHITE BLOOD COUNT (AUTO) 10.5 K/uL (4.8-10.8)
[2017-03-01 08:09] LABS: CALCIUM 9.4 mg/dL (8.4-11.0); POTASSIUM 4.5 mmol/L (3.5-5.1)
--- NOTE | 2017-03-01 08:10 | NUR ---
Pt B/P 193/121, Dr. Krishnamurthy aware and pt to be medicated. Pt denies c/o H/A, no C/P or SOB. AAOx4, no focal neurodeficits. Pt blind per baseline.
[2017-03-01 08:14] LABS: ALBUMIN 3.7 g/dL (3.4-4.8); TOTAL BILIRUBIN 0.4 mg/dL (0.0-1.0)
[2017-03-01] MEDS ORDERED: NS 250 ML IV ONE (08:15)
[2017-03-01] MEDS ORDERED: FUROSEMIDE 20 MG TABLET PO ONE (08:15)
[2017-03-01] MEDS ORDERED: HYDROmorphone 1 MG INJ. 1 MG/ML AMPUL IVP ONE ×2 (08:15→09:00)
[2017-03-01] MEDS ORDERED: METOCLOPRAMIDE HCL 10 MG/2 ML VIAL IVP ONE (08:15)
[2017-03-01] MEDS ORDERED: LABETALOL 100 MG/ 20ML VIAL IVP ONE (08:15)
[2017-03-01 08:18] LABS: CREATININE 9.37 mg/dL (0.55-1.30)
--- NOTE | 2017-03-01 08:45 | NUR ---
Pt to X-ray via stretcher.
--- NOTE | 2017-03-01 08:55 | NUR ---
Pt returns from x-ray. Pt continues to c/o LUQ abdominal pain. No N/V at this time. Dr. Krishnamurthy notified and pt to be medicated.
--- NOTE | 2017-03-01 09:05 | NUR ---
No improvement noted to B/P 213/131. Pt denies c/o H/A, no SOB, no C/P, no neurodeficits. Dr. Krishnamurthy notified.
[2017-03-01 09:30] VITALS: BP_SYST 188
--- NOTE | 2017-03-01 09:30 | NUR ---
Patient given written and verbal discharge instructions and verbalizes understanding. ER MD discussed with patient the results and treatment provided. Patient in stable condition. ID arm band removed. IV catheter removed intact and dressing applied, no active bleeding. Rx of [place] and Metocloperamide given. Patient educated on pain management and to follow up with PMD. Pain Scale 6/[address] Krishnamurthy aware of pain level and elevated B/P. Pt cleared to go home per Dr. Krishnamurthy. Opportunity for questions provided and answered.
== END 2017-03-01 09:30 | disposition home or self-care (01) ==
LOC: SED 07:01
DX: E11.43 Type 2 diabetes mellitus with diabetic autonomic (poly)neuropathy (principal); K31.84 Gastroparesis; I12.9 Hypertensive chronic kidney disease with stage 1 through stage 4 chronic kidney disease, or unspecified chronic kidney disease; E11.22 Type 2 diabetes mellitus with diabetic chronic kidney disease; N18.9 Chronic kidney disease, unspecified; E11.40 Type 2 diabetes mellitus with diabetic neuropathy, unspecified; Z99.2 Dependence on renal dialysis; Z88.5 Allergy status to narcotic agent; Z88.8 Allergy status to other drugs, medicaments and biological substances
CPT/HCPCS: 36415; 71010; 80053; 83690; 85025; 96361; 96374; 96375; 96376; 99285; J1170; J2765; J3490; J7030

== ENCOUNTER 2017-03-27 14:02 | Emergency (ER) | payer OTHER, MEDICAID ==
[~2017-03-27] VITALS: Ht 177.8 cm; Wt 104.3 kg
[2017-03-27 14:02] VITALS: BP_SYST 214
[2017-03-27] MEDS ORDERED: DIPHENHYDRAMINE INJ 50 MG/ML VIAL IVP ONE (14:30)
[2017-03-27] MEDS ORDERED: hydrALAZINE HCL 20 MG/ML VIAL IVP ONE ×2 (14:30→15:45)
[2017-03-27] MEDS ORDERED: HYDROmorphone 1 MG INJ. 1 MG/ML AMPUL IVP ONE ×2 (14:30→15:45)
[2017-03-27] MEDS ORDERED: HALOPERIDOL LACTATE 5 MG/ML VIAL IVP ONE (14:30)
--- NOTE | 2017-03-27 14:30 | NUR ---
PATIENT PLACED IN ROOM 7.
--- NOTE | 2017-03-27 14:39 | NUR ---
ASSUMED CARE OF PATIENT HERE FOR N/V/D AND ABDOMINAL PAIN SINCE 5 AM. PT IS SCHEDULED FOR DIALYSIS BUT "DID NOT GO". DUE TO ACUTE ILLNESS OF ABD PAIN.
[2017-03-27 15:07] LABS: CALCIUM 9.8 mg/dL (8.4-11.0)
[2017-03-27 15:11] LABS: CREATININE 12.22 mg/dL (0.55-1.30); POTASSIUM 6.6 mmol/L (3.5-5.1)
--- NOTE | 2017-03-27 15:17 | NUR ---
Obtained critical lab value of K+ 6.6, Cr. 12.2 and BUN 86. MD Le made aware, requesting to have patient dialized at patient facility.
[2017-03-27] MEDS ORDERED: METOCLOPRAMIDE HCL 10 MG/2 ML VIAL IVP ONE (15:45)
--- NOTE | 2017-03-27 16:12 | NUR ---
Patient reassessed prior to leaving AMA, and will be following up at dialysis afterwards. Parent at bedside, has been made aware of needing dialysis, VSS, condition stable. IV removed from left AC and intact.
[2017-03-27 16:15] VITALS: BP_SYST 170
--- NOTE | 2017-03-27 16:16 | NUR ---
Patient does not wish to proceed with medical care recommended by MD Le. Patient given information related to possible complications, up to and including , which could occur as a result of leaving hospital at this time. Patient verbalizes understanding of risks involved leaving against medical advice. Patient has signed AMA form.
== END 2017-03-27 16:15 | disposition left against medical advice (07) ==
LOC: SED 14:02
DX: I16.9 Hypertensive crisis, unspecified (principal); E87.5 Hyperkalemia; I10 Essential (primary) hypertension; E11.29 Type 2 diabetes mellitus with other diabetic kidney complication; E11.43 Type 2 diabetes mellitus with diabetic autonomic (poly)neuropathy; N28.9 Disorder of kidney and ureter, unspecified; K31.84 Gastroparesis; Z88.5 Allergy status to narcotic agent; Z79.899 Other long term (current) drug therapy
CPT/HCPCS: 36415; 80048; 96374; 96375; 96376; 99291; J0360; J1170; J1200; J1630; J2765

== ENCOUNTER 2017-06-17 11:24 | Inpatient (IN) | payer OTHER, MEDICAID ==
[~2017-06-17] VITALS: Ht 177.8 cm; Wt 111.3 kg
[~2017-06-17 11:24] MED LIST changes: +BRI.2% BOTH EYES; -BRI.2% OP; +HYDR-1189 PO; +HYDR-4100 PO; +LATA2.5D6 BOTH EYES; -LATA2.5D6 OP; +LUBI8CAP PO; +ONDA4TAB5 PO; +POLY17PO4 PO; +TIMO5DRO4 BOTH EYES; -TIMO5DRO4 OP
[2017-06-17 11:31] VITALS: BP_SYST 228
[2017-06-17] MEDS ORDERED: fentaNYL CITRATE/PF 100 MCG/2 ML AMP IVP ONE ×2 (12:00→13:45)
[2017-06-17] MEDS ORDERED: METOCLOPRAMIDE HCL 10 MG/2 ML VIAL IVP ONE (12:00)
[2017-06-17 12:31] LABS: BASOPHILS # (AUTO) 0.1 K/uL (0.0-0.2); BASOPHILS % (AUTO) 0.6 % (0.0-2.0); EOSINOPHILS # (AUTO) 0.1 K/uL (0.0-0.4); EOSINOPHILS % (AUTO) 0.4 % (0.0-4.0); HEMATOCRIT 36.5 % (36-54); HEMOGLOBIN 12.1 g/dL (14.0-18.0); LYMPHOCYTES # (AUTO) 1.5 K/uL (1.0-5.5); LYMPHOCYTES % (AUTO) 11.7 % (20.5-51.5); MEAN CORPUSCULAR HEMOGLOBIN 32 pg (27-31); MEAN CORPUSCULAR HGB CONC 33 % (32-36); MEAN CORPUSCULAR VOLUME 97 fL (79.0-98.0); MONOCYTES # (AUTO) 0.8 K/uL (0.0-1.0); MONOCYTES % (AUTO) 6.4 % (1.7-9.3); NEUTROPHILS # (AUTO) 10.3 K/uL (1.8-7.7); NEUTROPHILS % (AUTO) 80.9 % (40.0-70.0); PLATELET COUNT (AUTO) 260 K/uL (130-430); RED BLOOD CELL COUNT(AUTO) 3.75 MIL/uL (4.2-6.2); RED CELL DISTRIBUTION WIDTH 15.5 % (9.0-15.0); WHITE BLOOD COUNT (AUTO) 12.8 K/uL (4.8-10.8)
[2017-06-17 12:45] LABS: CALCIUM 9.1 mg/dL (8.4-11.0); CREATININE 6.5 mg/dL (0.55-1.30); POTASSIUM 5.1 mmol/L (3.5-5.1)
[2017-06-17 12:51] LABS: ALBUMIN 3.8 g/dL (3.4-4.8); TOTAL BILIRUBIN 0.6 mg/dL (0.0-1.0)
[2017-06-17] MEDS ORDERED: cloNIDine HCL 0.2 MG TABLET PO PRN (15:00)
[2017-06-17 15:15] VITALS: BP_SYST 208
[2017-06-17 16:00] VITALS: BP_SYST 208
[2017-06-17] MEDS ORDERED: DEXTROSE 50% JECT 50 ML DISP.SYRIN IVP PRN (16:00)
[2017-06-17] MEDS ORDERED: METHOCARBAMOL 500 MG TABLET PO PRN (16:00)
[2017-06-17] MEDS ORDERED: GABAPENTIN 300 MG CAPSULE PO PRN (16:00)
[2017-06-17] MEDS ORDERED: METOCLOPRAMIDE HCL 10 MG TABLET PO PRN (16:00)
[2017-06-17] MEDS ORDERED: ONDANSETRON 4 MG ODT TAB PO PRN (16:00)
[2017-06-17] MEDS ORDERED: INSULIN ASPART 100 UNITS/ML, 10 ML VIAL (NovoLOG) SUBCUT PRN (16:00)
[2017-06-17] MEDS ORDERED: hydrALAZINE HCL 20 MG/ML VIAL IVP PRN (16:30)
[2017-06-17] MEDS ORDERED: hydrALAZINE HCL 20 MG/ML VIAL ONE (16:38)
[2017-06-17] MEDS: HYDROcodone/ACETAMIN 10-325 MG TAB PO PRN (16:42)
[2017-06-17 17:06] VITALS: BP_SYST 160
[2017-06-17] MEDS: HYDROcodone/ACETAMIN 5-325 MG TAB (NORCO/ VICODIN) PO SCH ×2 (17:45→21:10)
[2017-06-17] MEDS: METOCLOPRAMIDE HCL 10 MG/2 ML VIAL IVP SCH (17:45)
[2017-06-17 20:00] VITALS: BP_SYST 189
[2017-06-17] MEDS: fentaNYL CITRATE/PF 100 MCG/2 ML AMP IVP PRN (20:05)
[2017-06-17] MEDS: POLYETHYLENE GLYCOL 3350, 17 GM/ POWD.PACK PO SCH (21:08)
[2017-06-17] MEDS: FUROSEMIDE 40 MG TABLET PO SCH (21:09)
[2017-06-17] MEDS: METOPROLOL TARTRATE 50 MG TABLET PO SCH (21:10)
[2017-06-17] MEDS: LABETALOL HCL 100 MG TABLET PO SCH (21:11)
[2017-06-17] MEDS: hydrALAZINE HCL 25 MG TABLET PO SCH (21:12)
[2017-06-17] MEDS: LATANOPROST 2.5 ML DROPS (XALATAN) BOTH EYES SCH (21:18)
[2017-06-17] MEDS: TIMOLOL MALEATE 0.5% OPHTHALMIC DROPS 5 ML BOTH EYES SCH (21:18)
[2017-06-17] MEDS: BRIMONIDINE TARTRATE 0.2% 5 mL EYE DROPS BOTH EYES SCH (21:18)
[2017-06-18] MEDS: METOCLOPRAMIDE HCL 10 MG/2 ML VIAL IVP SCH ×4 (00:31→17:31)
[2017-06-18] MEDS: HYDROcodone/ACETAMIN 10-325 MG TAB PO PRN (00:36)
[2017-06-18 01:16] VITALS: BP_SYST 141
[2017-06-18] MEDS: fentaNYL CITRATE/PF 100 MCG/2 ML AMP IVP PRN ×4 (02:47→20:53)
[2017-06-18] MEDS: hydrALAZINE HCL 25 MG TABLET PO SCH ×3 (06:18→22:09)
[2017-06-18 08:11] VITALS: BP_SYST 186
[2017-06-18] MEDS: LABETALOL HCL 100 MG TABLET PO SCH ×2 (08:14→20:37)
[2017-06-18] MEDS: CINACALCET HCL 30 MG TABLET PO SCH (08:14)
[2017-06-18] MEDS: METOPROLOL TARTRATE 50 MG TABLET PO SCH ×2 (08:15→20:35)
[2017-06-18] MEDS: HYDROcodone/ACETAMIN 5-325 MG TAB (NORCO/ VICODIN) PO SCH ×4 (08:15→22:08)
[2017-06-18] MEDS: FUROSEMIDE 40 MG TABLET PO SCH ×2 (08:15→20:34)
[2017-06-18] MEDS: TIMOLOL MALEATE 0.5% OPHTHALMIC DROPS 5 ML BOTH EYES SCH ×2 (08:16→20:32)
[2017-06-18] MEDS: BRIMONIDINE TARTRATE 0.2% 5 mL EYE DROPS BOTH EYES SCH ×2 (08:16→20:32)
[2017-06-18] MEDS ORDERED: fentaNYL CITRATE/PF 100 MCG/2 ML AMP IVP PRN (08:30)
[2017-06-18] MEDS ORDERED: cloNIDine HCL 0.2 MG TABLET PO ONE (08:45)
[2017-06-18 09:06] LABS: BASOPHILS # (AUTO) 0.1 K/uL (0.0-0.2); BASOPHILS % (AUTO) 0.7 % (0.0-2.0); EOSINOPHILS # (AUTO) 0.1 K/uL (0.0-0.4); EOSINOPHILS % (AUTO) 1.6 % (0.0-4.0); HEMATOCRIT 34.4 % (36-54); HEMOGLOBIN 11.6 g/dL (14.0-18.0); LYMPHOCYTES # (AUTO) 2.7 K/uL (1.0-5.5); LYMPHOCYTES % (AUTO) 30.5 % (20.5-51.5); MEAN CORPUSCULAR HEMOGLOBIN 33 pg (27-31); MEAN CORPUSCULAR HGB CONC 34 % (32-36); MEAN CORPUSCULAR VOLUME 97 fL (79.0-98.0); MONOCYTES # (AUTO) 0.8 K/uL (0.0-1.0); MONOCYTES % (AUTO) 8.7 % (1.7-9.3); NEUTROPHILS # (AUTO) 5.1 K/uL (1.8-7.7); NEUTROPHILS % (AUTO) 58.5 % (40.0-70.0); PLATELET COUNT (AUTO) 255 K/uL (130-430); RED BLOOD CELL COUNT(AUTO) 3.55 MIL/uL (4.2-6.2); RED CELL DISTRIBUTION WIDTH 15.7 % (9.0-15.0); WHITE BLOOD COUNT (AUTO) 8.8 K/uL (4.8-10.8)
[2017-06-18 09:21] LABS: CALCIUM 8.7 mg/dL (8.4-11.0)
[2017-06-18 09:49] LABS: CREATININE 8.77 mg/dL (0.55-1.30); POTASSIUM 5.9 mmol/L (3.5-5.1)
[2017-06-18 12:03] VITALS: BP_SYST 150
[2017-06-18] MEDS: cloNIDine HCL 0.2 MG TABLET PO SCH ×2 (12:05→17:04)
[2017-06-18 19:00] VITALS: BP_SYST 127
[2017-06-18 20:00] VITALS: BP_SYST 127
[2017-06-18] MEDS: LATANOPROST 2.5 ML DROPS (XALATAN) BOTH EYES SCH (20:33)
[2017-06-18] MEDS: POLYETHYLENE GLYCOL 3350, 17 GM/ POWD.PACK PO SCH (20:35)
[2017-06-18 22:00] VITALS: BP_SYST 130
[2017-06-19] MEDS: cloNIDine HCL 0.2 MG TABLET PO SCH ×3 (00:56→12:37)
[2017-06-19] MEDS: METOCLOPRAMIDE HCL 10 MG/2 ML VIAL IVP SCH ×3 (01:05→12:37)
[2017-06-19 03:51] VITALS: BP_SYST 147
[2017-06-19] MEDS: hydrALAZINE HCL 25 MG TABLET PO SCH (05:26)
[2017-06-19] MEDS: HYDROcodone/ACETAMIN 10-325 MG TAB PO PRN (05:29)
[2017-06-19] MEDS: fentaNYL CITRATE/PF 100 MCG/2 ML AMP IVP PRN (06:57)
[2017-06-19 07:41] LABS: BASOPHILS # (AUTO) 0.1 K/uL (0.0-0.2); BASOPHILS % (AUTO) 0.6 % (0.0-2.0); EOSINOPHILS # (AUTO) 0.2 K/uL (0.0-0.4); EOSINOPHILS % (AUTO) 1.6 % (0.0-4.0); HEMATOCRIT 32.1 % (36-54); HEMOGLOBIN 10.8 g/dL (14.0-18.0); LYMPHOCYTES % (AUTO) 31.5 % (20.5-51.5); MEAN CORPUSCULAR HEMOGLOBIN 33 pg (27-31); MEAN CORPUSCULAR HGB CONC 34 % (32-36); MEAN CORPUSCULAR VOLUME 97 fL (79.0-98.0); MONOCYTES # (AUTO) 0.7 K/uL (0.0-1.0); MONOCYTES % (AUTO) 7.6 % (1.7-9.3); NEUTROPHILS # (AUTO) 5.4 K/uL (1.8-7.7); NEUTROPHILS % (AUTO) 58.7 % (40.0-70.0); PLATELET COUNT (AUTO) 234 K/uL (130-430); RED CELL DISTRIBUTION WIDTH 15.4 % (9.0-15.0); WHITE BLOOD COUNT (AUTO) 9.4 K/uL (4.8-10.8)
[2017-06-19 07:56] LABS: CREATININE 10.05 mg/dL (0.55-1.30)
[2017-06-19] MEDS ORDERED: HEPARIN SODIUM,PORCINE 5000 UNITS/ML VIAL IV ONE (08:00)
[2017-06-19] MEDS ORDERED: HYDROmorphone 2 MG/ML VIAL IVP PRN (08:15)
[2017-06-19 08:17] LABS: POTASSIUM 6.3 mmol/L (3.5-5.1)
[2017-06-19 08:31] VITALS: BP_SYST 168
[2017-06-19] MEDS: LABETALOL HCL 100 MG TABLET PO SCH (09:00)
[2017-06-19] MEDS: FUROSEMIDE 40 MG TABLET PO SCH (09:00)
[2017-06-19] MEDS: METOPROLOL TARTRATE 50 MG TABLET PO SCH (09:00)
[2017-06-19] MEDS: CINACALCET HCL 30 MG TABLET PO SCH (09:08)
[2017-06-19] MEDS: TIMOLOL MALEATE 0.5% OPHTHALMIC DROPS 5 ML BOTH EYES SCH (09:08)
[2017-06-19] MEDS: BRIMONIDINE TARTRATE 0.2% 5 mL EYE DROPS BOTH EYES SCH (09:09)
[2017-06-19] MEDS ORDERED: hydrALAZINE HCL 25 MG TABLET PO SCH (12:00)
[2017-06-19] MEDS ORDERED: fentaNYL CITRATE/PF 100 MCG/2 ML AMP IVP PRN (12:45)
[2017-06-19] MEDS ORDERED: HYDROcodone/ACETAMIN 10-325 MG TAB PO PRN (13:00)
[2017-06-19] MEDS ORDERED: fentaNYL CITRATE/PF 100 MCG/2 ML AMP ONE (13:01)
[2017-06-19 13:13] VITALS: BP_SYST 167
== END 2017-06-19 15:25 | disposition left against medical advice (07) | DRG 73 ==
LOC: SED 11:24 → STU 14:51
PROVIDERS: ADMIT General Practice; ATTEND General Practice
PROC: 5A1D70Z Performance of Urinary Filtration, Intermittent, Less than 6 Hours Per Day (ICD-10-PCS; principal; 2017-06-18)
DX: E11.43 Type 2 diabetes mellitus with diabetic autonomic (poly)neuropathy (principal); N17.0 Acute kidney failure with tubular necrosis; E11.21 Type 2 diabetes mellitus with diabetic nephropathy; F11.20 Opioid dependence, uncomplicated; E87.1 Hypo-osmolality and hyponatremia; E11.65 Type 2 diabetes mellitus with hyperglycemia; N18.6 End stage renal disease; I12.0 Hypertensive chronic kidney disease with stage 5 chronic kidney disease or end stage renal disease; E11.40 Type 2 diabetes mellitus with diabetic neuropathy, unspecified; K31.84 Gastroparesis; E11.319 Type 2 diabetes mellitus with unspecified diabetic retinopathy without macular edema; I16.0 Hypertensive urgency; H54.7 Unspecified visual loss; D63.1 Anemia in chronic kidney disease; Z53.21 Procedure and treatment not carried out due to patient leaving prior to being seen by health care provider; K21.9 Gastro-esophageal reflux disease without esophagitis; E66.9 Obesity, unspecified; Z91.19 Patient's noncompliance with other medical treatment and regimen; Z88.5 Allergy status to narcotic agent; Z99.2 Dependence on renal dialysis; Z88.8 Allergy status to other drugs, medicaments and biological substances; Z79.899 Other long term (current) drug therapy; Z68.35 Body mass index [BMI] 35.0-35.9, adult
CPT/HCPCS: 36415; 71045; 80048; 80053; 82962; 83690-TC; 83735-TC; 85025; 87040-TC; 87081; 90935; 96374; 96375; 96376; 99285; J0360; J1644; J1815; J2765; J3010; J7030; J8597; Q0162

== ENCOUNTER 2017-06-24 16:46 | Inpatient (IN) | payer OTHER, MEDICAID ==
[~2017-06-24] VITALS: Ht 177.8 cm; Wt 108.0 kg
[2017-06-24 17:00] VITALS: BP_SYST 211
[2017-06-24] MEDS ORDERED: DIPHENHYDRAMINE INJ 50 MG/ML VIAL IVP ONE (17:15)
[2017-06-24] MEDS ORDERED: fentaNYL CITRATE/PF 100 MCG/2 ML AMP IVP ONE ×2 (17:15→19:30)
[2017-06-24] MEDS ORDERED: ONDANSETRON HCL 4 MG/2 ML VIAL IVP ONE (17:15)
[2017-06-24 17:48] LABS: BASOPHILS # (AUTO) 0.2 K/uL (0.0-0.2); BASOPHILS % (AUTO) 1.3 % (0.0-2.0); EOSINOPHILS # (AUTO) 0.1 K/uL (0.0-0.4); EOSINOPHILS % (AUTO) 1.1 % (0.0-4.0); HEMATOCRIT 33.9 % (36-54); HEMOGLOBIN 11.4 g/dL (14.0-18.0); LYMPHOCYTES # (AUTO) 1.6 K/uL (1.0-5.5); LYMPHOCYTES % (AUTO) 13.9 % (20.5-51.5); MEAN CORPUSCULAR HEMOGLOBIN 33 pg (27-31); MEAN CORPUSCULAR HGB CONC 34 % (32-36); MEAN CORPUSCULAR VOLUME 98 fL (79.0-98.0); MONOCYTES # (AUTO) 0.7 K/uL (0.0-1.0); MONOCYTES % (AUTO) 5.8 % (1.7-9.3); NEUTROPHILS % (AUTO) 77.9 % (40.0-70.0); PLATELET COUNT (AUTO) 273 K/uL (130-430); RED BLOOD CELL COUNT(AUTO) 3.48 MIL/uL (4.2-6.2); RED CELL DISTRIBUTION WIDTH 14.9 % (9.0-15.0); WHITE BLOOD COUNT (AUTO) 11.6 K/uL (4.8-10.8)
[2017-06-24] MEDS: NACL 0.9% 1,000 ML IV ONE ×2 (17:50→17:58)
[2017-06-24 17:56] LABS: CALCIUM 8.9 mg/dL (8.4-11.0); POTASSIUM 4.3 mmol/L (3.5-5.1)
[2017-06-24 17:59] LABS: PROTHROMBIN TIME 9.8 SECS (9.5-12.5)
[2017-06-24 18:02] LABS: CREATININE 4.07 mg/dL (0.55-1.30); TOTAL BILIRUBIN 0.6 mg/dL (0.0-1.0)
[2017-06-24] MEDS ORDERED: cloNIDine HCL 0.1 MG TABLET PO ONE (18:30)
[2017-06-24] MEDS ORDERED: MORPHINE 2 MG/ML INJ. SYRINGE IVP PRN ×2 (20:30→22:45)
[2017-06-24] MEDS: D5/0.45 NS 1,000 ML IV SCH (20:30)
[2017-06-24 20:48] VITALS: BP_SYST 208
[2017-06-24] MEDS: MORPHINE 4 MG/ML INJ. SYRINGE IVP PRN (21:04)
[2017-06-24] MEDS ORDERED: ONDANSETRON HCL 4 MG/2 ML VIAL IVP PRN (22:00)
[2017-06-24] MEDS: hydrALAZINE HCL 25 MG TABLET PO SCH (22:43)
[2017-06-24] MEDS: LABETALOL HCL 100 MG TABLET PO SCH (22:43)
[2017-06-24] MEDS: METOPROLOL TARTRATE 50 MG TABLET PO SCH (22:44)
[2017-06-24] MEDS ORDERED: OXYCODONE/ACETAMINOPHEN *10*mg/325 mg TABLET PO PRN (22:45)
[2017-06-24] MEDS ORDERED: HYDROcodone/ACETAMIN 5-325 MG TAB (NORCO/ VICODIN) PO PRN (22:45)
[2017-06-24] MEDS ORDERED: DEXTROSE 50% JECT 50 ML DISP.SYRIN IVP PRN ×2 (22:45)
[2017-06-24] MEDS ORDERED: ACETAMINOPHEN 325 MG TABLET PO PRN (22:45)
[2017-06-24] MEDS ORDERED: ONDANSETRON 4 MG ODT TAB PO SCH (22:45)
[2017-06-24] MEDS ORDERED: INSULIN ASPART 100 UNITS/ML, 10 ML VIAL (NovoLOG) SUBCUT PRN (22:45)
[2017-06-24] MEDS ORDERED: GABAPENTIN 300 MG CAPSULE PO PRN (22:45)
[2017-06-24] MEDS ORDERED: METHOCARBAMOL 500 MG TABLET PO PRN (22:45)
[2017-06-24] MEDS ORDERED: METOCLOPRAMIDE HCL 10 MG TABLET PO PRN (22:45)
[2017-06-24] MEDS ORDERED: HYDROcodone/ACETAMIN 10-325 MG TAB PO PRN (22:45)
[2017-06-24] MEDS ORDERED: ONDANSETRON 4 MG ODT TAB PO PRN (22:48)
[2017-06-24] MEDS: HYDROcodone/ACETAMIN 10-325 MG TAB PO PRN (23:22)
[2017-06-24] MEDS ORDERED: METOCLOPRAMIDE HCL 10 MG TABLET PO ONE (23:30)
[2017-06-24 23:33] VITALS: BP_SYST 181
[2017-06-25] MEDS: ONDANSETRON HCL 4 MG/2 ML VIAL IVP PRN ×6 (00:37→20:57)
[2017-06-25] MEDS: MORPHINE 4 MG/ML INJ. SYRINGE IVP PRN ×6 (00:38→20:57)
[2017-06-25] MEDS: ASPIRIN 81 MG TAB.CHEW PO SCH ×2 (03:00→08:09)
[2017-06-25] MEDS: HYDROcodone/ACETAMIN 10-325 MG TAB PO PRN ×2 (03:02→22:45)
[2017-06-25] MEDS: NORMAL SALINE 5 ML DISP.SYRIN IVF SCH ×3 (06:03→22:47)
[2017-06-25] MEDS: METOCLOPRAMIDE HCL 10 MG TABLET PO SCH ×3 (06:03→16:44)
[2017-06-25] MEDS: hydrALAZINE HCL 25 MG TABLET PO SCH ×3 (06:09→21:11)
[2017-06-25] MEDS: cloNIDine HCL 0.1 MG TABLET PO PRN (06:10)
[2017-06-25 07:18] LABS: BASOPHILS # (AUTO) 0.1 K/uL (0.0-0.2); BASOPHILS % (AUTO) 0.7 % (0.0-2.0); EOSINOPHILS # (AUTO) 0.1 K/uL (0.0-0.4); EOSINOPHILS % (AUTO) 0.6 % (0.0-4.0); HEMATOCRIT 29.8 % (36-54); LYMPHOCYTES # (AUTO) 2.8 K/uL (1.0-5.5); MEAN CORPUSCULAR HEMOGLOBIN 32 pg (27-31); MEAN CORPUSCULAR HGB CONC 34 % (32-36); MONOCYTES # (AUTO) 0.8 K/uL (0.0-1.0); MONOCYTES % (AUTO) 7.9 % (1.7-9.3); NEUTROPHILS # (AUTO) 6.7 K/uL (1.8-7.7); NEUTROPHILS % (AUTO) 63.8 % (40.0-70.0); PLATELET COUNT (AUTO) 261 K/uL (130-430); RED CELL DISTRIBUTION WIDTH 14.9 % (9.0-15.0); WHITE BLOOD COUNT (AUTO) 10.5 K/uL (4.8-10.8)
[2017-06-25 07:21] LABS: CALCIUM 8.2 mg/dL (8.4-11.0); CREATININE 5.05 mg/dL (0.55-1.30); POTASSIUM 4.9 mmol/L (3.5-5.1)
[2017-06-25 07:28] LABS: MEAN CORPUSCULAR VOLUME 96 fL (79.0-98.0)
[2017-06-25] MEDS ORDERED: MORPHINE 4 MG/ML INJ. SYRINGE IVP PRN (07:38)
[2017-06-25] MEDS: LUBIPROSTONE 8 MCG CAPSULE PO SCH ×2 (08:07→17:45)
[2017-06-25] MEDS: CINACALCET HCL 30 MG TABLET PO SCH (08:08)
[2017-06-25] MEDS: FUROSEMIDE 40 MG TABLET PO SCH ×2 (08:08→20:57)
[2017-06-25] MEDS: METOPROLOL TARTRATE 50 MG TABLET PO SCH ×2 (08:09→20:56)
[2017-06-25] MEDS: LABETALOL HCL 100 MG TABLET PO SCH ×3 (08:09→21:12)
[2017-06-25] MEDS: PANTOPRAZOLE SODIUM 40 MG TAB PO SCH (08:09)
[2017-06-25] MEDS: D5/0.45 NS 1,000 ML IV SCH ×2 (08:10→13:05)
[2017-06-25 08:20] VITALS: BP_SYST 175
[2017-06-25 12:07] VITALS: BP_SYST 137
[2017-06-25 16:49] VITALS: BP_SYST 149
[2017-06-25 20:24] VITALS: BP_SYST 151
[2017-06-25] MEDS: POLYETHYLENE GLYCOL 3350, 17 GM/ POWD.PACK PO SCH (20:58)
[2017-06-26] MEDS: MORPHINE 4 MG/ML INJ. SYRINGE IVP PRN ×6 (01:18→22:25)
[2017-06-26] MEDS: ASPIRIN 81 MG TAB.CHEW PO SCH ×2 (01:18→09:41)
[2017-06-26 01:19] VITALS: BP_SYST 151
[2017-06-26] MEDS: HYDROcodone/ACETAMIN 10-325 MG TAB PO PRN ×3 (04:25→20:54)
[2017-06-26] MEDS: LABETALOL HCL 100 MG TABLET PO SCH ×3 (05:44→20:59)
[2017-06-26] MEDS: hydrALAZINE HCL 25 MG TABLET PO SCH ×3 (05:45→21:00)
[2017-06-26] MEDS: NORMAL SALINE 5 ML DISP.SYRIN IVF SCH ×3 (05:46→21:00)
[2017-06-26] MEDS: METOCLOPRAMIDE HCL 10 MG TABLET PO SCH ×3 (06:12→17:37)
[2017-06-26 07:19] LABS: BASOPHILS # (AUTO) 0.1 K/uL (0.0-0.2); BASOPHILS % (AUTO) 0.8 % (0.0-2.0); EOSINOPHILS # (AUTO) 0.3 K/uL (0.0-0.4); EOSINOPHILS % (AUTO) 2.8 % (0.0-4.0); HEMATOCRIT 27.5 % (36-54); HEMOGLOBIN 9.3 g/dL (14.0-18.0); LYMPHOCYTES # (AUTO) 3.4 K/uL (1.0-5.5); LYMPHOCYTES % (AUTO) 34.1 % (20.5-51.5); MEAN CORPUSCULAR HEMOGLOBIN 33 pg (27-31); MEAN CORPUSCULAR HGB CONC 34 % (32-36); MEAN CORPUSCULAR VOLUME 97 fL (79.0-98.0); MONOCYTES # (AUTO) 0.9 K/uL (0.0-1.0); MONOCYTES % (AUTO) 8.9 % (1.7-9.3); NEUTROPHILS # (AUTO) 5.2 K/uL (1.8-7.7); NEUTROPHILS % (AUTO) 53.4 % (40.0-70.0); PLATELET COUNT (AUTO) 238 K/uL (130-430); RED BLOOD CELL COUNT(AUTO) 2.85 MIL/uL (4.2-6.2); RED CELL DISTRIBUTION WIDTH 14.4 % (9.0-15.0); WHITE BLOOD COUNT (AUTO) 9.9 K/uL (4.8-10.8)
[2017-06-26 07:34] LABS: CALCIUM 7.4 mg/dL (8.4-11.0); CREATININE 7.41 mg/dL (0.55-1.30); PHOSPHORUS 6.6 mg/dL (2.7-4.5); POTASSIUM 5.7 mmol/L (3.5-5.1)
[2017-06-26 07:59] VITALS: BP_SYST 147
[2017-06-26] MEDS: METOPROLOL TARTRATE 50 MG TABLET PO SCH ×2 (09:00→20:47)
[2017-06-26] MEDS: FUROSEMIDE 40 MG TABLET PO SCH ×2 (09:00→20:47)
[2017-06-26] MEDS: PANTOPRAZOLE SODIUM 40 MG TAB PO SCH (09:41)
[2017-06-26] MEDS: CINACALCET HCL 30 MG TABLET PO SCH (09:41)
[2017-06-26] MEDS: LUBIPROSTONE 8 MCG CAPSULE PO SCH ×2 (09:45→17:37)
[2017-06-26 12:08] VITALS: BP_SYST 132
[2017-06-26] MEDS: D5/0.45 NS 1,000 ML IV SCH (13:05)
[2017-06-26] MEDS ORDERED: HEPARIN SODIUM,PORCINE 5000 UNITS/ML VIAL IV ONE (15:30)
[2017-06-26 16:00] VITALS: BP_SYST 139
[2017-06-26] MEDS ORDERED: EPOETIN ALFA 4,000 UNITS/ML VIAL SUBCUT SCH (17:00)
[2017-06-26 20:45] VITALS: BP_SYST 148
[2017-06-26] MEDS: MUPIROCIN 2% TOPICAL OINTMENT 22 GM NS SCH (20:47)
[2017-06-26] MEDS: POLYETHYLENE GLYCOL 3350, 17 GM/ POWD.PACK PO SCH (20:47)
[2017-06-27 01:24] VITALS: BP_SYST 152
[2017-06-27] MEDS: MORPHINE 4 MG/ML INJ. SYRINGE IVP PRN ×4 (02:35→14:46)
[2017-06-27] MEDS: ASPIRIN 81 MG TAB.CHEW PO SCH ×2 (02:35→08:10)
[2017-06-27] MEDS: ONDANSETRON HCL 4 MG/2 ML VIAL IVP PRN ×4 (02:47→14:46)
[2017-06-27] MEDS: NORMAL SALINE 5 ML DISP.SYRIN IVF SCH ×2 (05:18→13:22)
[2017-06-27] MEDS: HYDROcodone/ACETAMIN 10-325 MG TAB PO PRN ×2 (05:20→09:43)
[2017-06-27] MEDS: LABETALOL HCL 100 MG TABLET PO SCH ×2 (05:20→13:21)
[2017-06-27] MEDS: hydrALAZINE HCL 25 MG TABLET PO SCH ×2 (05:21→13:21)
[2017-06-27] MEDS: cloNIDine HCL 0.1 MG TABLET PO PRN (05:24)
[2017-06-27 06:24] VITALS: BP_SYST 149
[2017-06-27] MEDS: METOCLOPRAMIDE HCL 10 MG TABLET PO SCH ×2 (06:35→11:54)
[2017-06-27 06:36] LABS: CALCIUM 7.9 mg/dL (8.4-11.0); CREATININE 6.35 mg/dL (0.55-1.30); PHOSPHORUS 5.9 mg/dL (2.7-4.5); POTASSIUM 5.1 mmol/L (3.5-5.1)
[2017-06-27 06:42] LABS: BASOPHILS # (AUTO) 0.1 K/uL (0.0-0.2); BASOPHILS % (AUTO) 0.9 % (0.0-2.0); EOSINOPHILS # (AUTO) 0.2 K/uL (0.0-0.4); EOSINOPHILS % (AUTO) 2.2 % (0.0-4.0); HEMATOCRIT 28.6 % (36-54); HEMOGLOBIN 9.7 g/dL (14.0-18.0); LYMPHOCYTES # (AUTO) 2.5 K/uL (1.0-5.5); LYMPHOCYTES % (AUTO) 29.2 % (20.5-51.5); MEAN CORPUSCULAR HEMOGLOBIN 33 pg (27-31); MEAN CORPUSCULAR HGB CONC 34 % (32-36); MEAN CORPUSCULAR VOLUME 96 fL (79.0-98.0); MONOCYTES # (AUTO) 0.8 K/uL (0.0-1.0); MONOCYTES % (AUTO) 9.5 % (1.7-9.3); NEUTROPHILS # (AUTO) 5.1 K/uL (1.8-7.7); NEUTROPHILS % (AUTO) 58.2 % (40.0-70.0); PLATELET COUNT (AUTO) 230 K/uL (130-430); RED BLOOD CELL COUNT(AUTO) 2.97 MIL/uL (4.2-6.2); RED CELL DISTRIBUTION WIDTH 14.3 % (9.0-15.0); WHITE BLOOD COUNT (AUTO) 8.7 K/uL (4.8-10.8)
[2017-06-27] MEDS: MUPIROCIN 2% TOPICAL OINTMENT 22 GM NS SCH (08:08)
[2017-06-27] MEDS: CINACALCET HCL 30 MG TABLET PO SCH (08:09)
[2017-06-27] MEDS: LUBIPROSTONE 8 MCG CAPSULE PO SCH (08:09)
[2017-06-27] MEDS: FUROSEMIDE 40 MG TABLET PO SCH (08:10)
[2017-06-27] MEDS: METOPROLOL TARTRATE 50 MG TABLET PO SCH (08:11)
[2017-06-27] MEDS: PANTOPRAZOLE SODIUM 40 MG TAB PO SCH (08:11)
[2017-06-27 08:12] VITALS: BP_SYST 126
[2017-06-27 11:37] VITALS: BP_SYST 129
[2017-06-27] MEDS: D5/0.45 NS 1,000 ML IV SCH (11:47)
[2017-06-27] MEDS ORDERED: HYDR-1115 PO (12:27)
[2017-06-27] MEDS ORDERED: BACTROBAN NS (12:27)
[2017-06-27] MEDS ORDERED: METO-290 PO (12:27)
[2017-06-27] MEDS ORDERED: LABE100T PO (12:27)
[2017-06-27 15:59] VITALS: BP_SYST 122
[2017-06-27 16:00] VITALS: BP_SYST 131
== END 2017-06-27 16:37 | disposition home or self-care (01) | DRG 73 ==
LOC: SED 16:46 → SMU 20:16
PROVIDERS: ADMIT Preventive Medicine Preventive Medicine/Occupational Environmental Medicine; ATTEND Preventive Medicine Preventive Medicine/Occupational Environmental Medicine
PROC: 5A1D70Z Performance of Urinary Filtration, Intermittent, Less than 6 Hours Per Day (ICD-10-PCS; principal; 2017-06-26)
DX: E10.43 Type 1 diabetes mellitus with diabetic autonomic (poly)neuropathy (principal); N18.6 End stage renal disease; E10.21 Type 1 diabetes mellitus with diabetic nephropathy; I12.0 Hypertensive chronic kidney disease with stage 5 chronic kidney disease or end stage renal disease; E10.65 Type 1 diabetes mellitus with hyperglycemia; F11.20 Opioid dependence, uncomplicated; E10.22 Type 1 diabetes mellitus with diabetic chronic kidney disease; E87.1 Hypo-osmolality and hyponatremia; N25.81 Secondary hyperparathyroidism of renal origin; K31.84 Gastroparesis; E83.39 Other disorders of phosphorus metabolism; E83.41 Hypermagnesemia; E83.51 Hypocalcemia; W19.XXXA Unspecified fall, initial encounter; I16.0 Hypertensive urgency; Z22.322 Carrier or suspected carrier of Methicillin resistant Staphylococcus aureus; D72.829 Elevated white blood cell count, unspecified; H54.8 Legal blindness, as defined in USA; D63.8 Anemia in other chronic diseases classified elsewhere; E78.5 Hyperlipidemia, unspecified; E87.5 Hyperkalemia; R74.8 Abnormal levels of other serum enzymes; H40.9 Unspecified glaucoma; G89.29 Other chronic pain; E83.52 Hypercalcemia; Z99.2 Dependence on renal dialysis; Z88.5 Allergy status to narcotic agent; Z79.899 Other long term (current) drug therapy; Z79.84 Long term (current) use of oral hypoglycemic drugs; Y93.89 Activity, other specified; Y92.89 Other specified places as the place of occurrence of the external cause; Y99.8 Other external cause status; Z87.891 Personal history of nicotine dependence
CPT/HCPCS: 36415; 71045; 80048; 80053; 80061; 82150-TC; 82550-TC; 82962; 83690-TC; 83735-TC; 84100-TC; 84484; 85025; 85610-TC; 85730-TC; 87081; 90935; 93005; 93306; 96374; 96375; 99285; J0885; J1200; J1644; J1815; J2270; J2405; J3010; J7030; J8597

== ENCOUNTER 2017-07-02 06:53 | Emergency (ER) | payer OTHER, MEDICAID ==
[~2017-07-02] VITALS: Ht 177.8 cm; Wt 104.3 kg
[~2017-07-02 06:53] MED LIST changes: +BACTROBAN NS
[2017-07-02 07:03] VITALS: BP_SYST 196
[2017-07-02] MEDS ORDERED: METOCLOPRAMIDE HCL 10 MG/2 ML VIAL IVP ONE (07:15)
[2017-07-02] MEDS ORDERED: MORPHINE 4 MG/ML INJ. SYRINGE IVP ONE ×2 (07:15→08:15)
[2017-07-02] MEDS ORDERED: PROCHLORPERAZINE EDISYLATE 10 MG/2 ML VIAL IVP ONE (07:15)
[2017-07-02 07:31] LABS: BASOPHILS # (AUTO) 0.1 K/uL (0.0-0.2); BASOPHILS % (AUTO) 0.9 % (0.0-2.0); EOSINOPHILS # (AUTO) 0.2 K/uL (0.0-0.4); EOSINOPHILS % (AUTO) 1.4 % (0.0-4.0); HEMATOCRIT 28.5 % (36-54); HEMOGLOBIN 9.7 g/dL (14.0-18.0); LYMPHOCYTES # (AUTO) 2.3 K/uL (1.0-5.5); MEAN CORPUSCULAR HEMOGLOBIN 33 pg (27-31); MEAN CORPUSCULAR HGB CONC 34 % (32-36); MEAN CORPUSCULAR VOLUME 96 fL (79.0-98.0); MONOCYTES # (AUTO) 0.8 K/uL (0.0-1.0); MONOCYTES % (AUTO) 7.2 % (1.7-9.3); NEUTROPHILS # (AUTO) 7.7 K/uL (1.8-7.7); NEUTROPHILS % (AUTO) 69.5 % (40.0-70.0); PLATELET COUNT (AUTO) 290 K/uL (130-430); RED BLOOD CELL COUNT(AUTO) 2.97 MIL/uL (4.2-6.2); WHITE BLOOD COUNT (AUTO) 11.1 K/uL (4.8-10.8)
[2017-07-02 07:38] LABS: CALCIUM 8.8 mg/dL (8.4-11.0); POTASSIUM 5.4 mmol/L (3.5-5.1)
[2017-07-02 07:43] LABS: ALBUMIN 3.7 g/dL (3.4-4.8); TOTAL BILIRUBIN 0.4 mg/dL (0.0-1.0)
[2017-07-02] MEDS ORDERED: cloNIDine HCL 0.1 MG TABLET PO ONE (07:45)
[2017-07-02 07:46] LABS: CREATININE 8.3 mg/dL (0.55-1.30)
[2017-07-02] MEDS ORDERED: ONDANSETRON HCL 4 MG/2 ML VIAL IVP ONE (08:15)
[2017-07-02] MEDS ORDERED: fentaNYL CITRATE/PF 100 MCG/2 ML AMP IVP ONE (08:45)
[2017-07-02] MEDS ORDERED: LORazepam 2 MG/ML VIAL (FOR ER USE) IVP ONE (08:45)
[2017-07-02 09:31] VITALS: BP_SYST 164
== END 2017-07-02 09:29 | disposition home or self-care (01) ==
LOC: SED 06:53
DX: G89.29 Other chronic pain (principal); R10.84 Generalized abdominal pain; I12.0 Hypertensive chronic kidney disease with stage 5 chronic kidney disease or end stage renal disease; E11.43 Type 2 diabetes mellitus with diabetic autonomic (poly)neuropathy; E11.21 Type 2 diabetes mellitus with diabetic nephropathy; K31.84 Gastroparesis; E11.22 Type 2 diabetes mellitus with diabetic chronic kidney disease; N18.6 End stage renal disease; Z99.2 Dependence on renal dialysis; Z88.8 Allergy status to other drugs, medicaments and biological substances; Z79.899 Other long term (current) drug therapy
CPT/HCPCS: 36415; 80053; 83690; 85025; 96374; 96375; 96376; 99284; J0780; J2060; J2270; J2405; J3010

== ENCOUNTER 2017-07-16 08:27 | Emergency (ER) | payer OTHER, MEDICAID ==
[~2017-07-16] VITALS: Ht 182.9 cm; Wt 104.3 kg
[2017-07-16 08:30] VITALS: BP_SYST 215
[2017-07-16] MEDS ORDERED: KETOROLAC TROMETHAMINE 60 MG/2 ML VIAL IM ONE (09:00)
[2017-07-16] MEDS ORDERED: ONDANSETRON 4 MG ODT TAB PO ONE (09:00)
[2017-07-16 10:00] VITALS: BP_SYST 206
== END 2017-07-16 09:57 | disposition home or self-care (01) ==
LOC: SED 08:27
DX: R10.12 Left upper quadrant pain (principal); R11.2 Nausea with vomiting, unspecified; I10 Essential (primary) hypertension; E11.69 Type 2 diabetes mellitus with other specified complication; E11.29 Type 2 diabetes mellitus with other diabetic kidney complication; E11.40 Type 2 diabetes mellitus with diabetic neuropathy, unspecified; E11.43 Type 2 diabetes mellitus with diabetic autonomic (poly)neuropathy; K31.84 Gastroparesis; Z99.2 Dependence on renal dialysis; Z79.899 Other long term (current) drug therapy; Z88.8 Allergy status to other drugs, medicaments and biological substances
CPT/HCPCS: 96372; 99283; J1885; Q0162

== ENCOUNTER 2017-07-18 09:45 | Emergency (ER) | payer OTHER, MEDICAID ==
[~2017-07-18] VITALS: Ht 180.3 cm; Wt 104.3 kg
[2017-07-18 09:55] VITALS: BP_SYST 181
[2017-07-18] MEDS ORDERED: DIPHENHYDRAMINE INJ 50 MG/ML VIAL IVP ONE ×2 (10:00→11:15)
[2017-07-18] MEDS ORDERED: HALOPERIDOL LACTATE 5 MG/ML VIAL IVP ONE (10:00)
[2017-07-18] MEDS ORDERED: KETOROLAC TROMETHAMINE 30 MG VIAL IVP ONE (10:00)
[2017-07-18 10:18] LABS: BASOPHILS # (AUTO) 0.1 K/uL (0.0-0.2); EOSINOPHILS % (AUTO) 0.2 % (0.0-4.0); HEMATOCRIT 36.4 % (36-54); HEMOGLOBIN 12.2 g/dL (14.0-18.0); LYMPHOCYTES # (AUTO) 2.6 K/uL (1.0-5.5); MEAN CORPUSCULAR HEMOGLOBIN 33 pg (27-31); MEAN CORPUSCULAR HGB CONC 34 % (32-36); MEAN CORPUSCULAR VOLUME 99 fL (79.0-98.0); MONOCYTES # (AUTO) 0.6 K/uL (0.0-1.0); MONOCYTES % (AUTO) 4.9 % (1.7-9.3); NEUTROPHILS # (AUTO) 9.2 K/uL (1.8-7.7); NEUTROPHILS % (AUTO) 72.9 % (40.0-70.0); PLATELET COUNT (AUTO) 290 K/uL (130-430); RED BLOOD CELL COUNT(AUTO) 3.69 MIL/uL (4.2-6.2); WHITE BLOOD COUNT (AUTO) 12.5 K/uL (4.8-10.8)
[2017-07-18 10:51] LABS: CALCIUM 8.9 mg/dL (8.4-11.0); CREATININE 6.48 mg/dL (0.55-1.30); POTASSIUM 5.3 mmol/L (3.5-5.1)
[2017-07-18 11:00] LABS: TOTAL BILIRUBIN 0.4 mg/dL (0.0-1.0)
[2017-07-18] MEDS ORDERED: PROCHLORPERAZINE EDISYLATE 10 MG/2 ML VIAL IVP ONE (11:15)
[2017-07-18] MEDS ORDERED: fentaNYL CITRATE/PF 100 MCG/2 ML AMP IVP ONE (11:15)
[2017-07-18 12:15] VITALS: BP_SYST 154
== END 2017-07-18 12:15 | disposition home or self-care (01) ==
LOC: SED 09:45
DX: K31.84 Gastroparesis (principal); R10.84 Generalized abdominal pain; E11.40 Type 2 diabetes mellitus with diabetic neuropathy, unspecified; I10 Essential (primary) hypertension; Z99.2 Dependence on renal dialysis; Z88.8 Allergy status to other drugs, medicaments and biological substances
CPT/HCPCS: 36415; 71045; 80053; 82550; 83880; 84484; 85025; 93005; 96374; 96375; 96376; 99285; J0780; J1200; J1630; J1885; J3010

== ENCOUNTER 2017-08-09 18:42 | Emergency (ER) | payer OTHER, MEDICAID ==
[~2017-08-09] VITALS: Ht 177.8 cm; Wt 104.3 kg
[2017-08-09 19:00] VITALS: BP_SYST 161
== END 2017-08-09 19:11 | disposition left against medical advice (07) ==
LOC: SED 18:42
DX: R10.9 Unspecified abdominal pain (principal); Z53.21 Procedure and treatment not carried out due to patient leaving prior to being seen by health care provider

== ENCOUNTER 2017-08-11 00:45 | Inpatient (IN) | payer OTHER, MEDICAID ==
[~2017-08-11] VITALS: Ht 179.1 cm; Wt 112.0 kg
[2017-08-11 01:00] VITALS: BP_SYST 161
[2017-08-11] MEDS ORDERED: fentaNYL CITRATE/PF 100 MCG/2 ML AMP IVP ONE (02:15)
[2017-08-11] MEDS ORDERED: METOCLOPRAMIDE HCL 10 MG/2 ML VIAL IVP ONE (02:15)
[2017-08-11] MEDS ORDERED: DIPHENHYDRAMINE INJ 50 MG/ML VIAL IVP ONE (02:15)
[2017-08-11 02:45] LABS: BASOPHILS # (AUTO) 0.1 K/uL (0.0-0.2); BASOPHILS % (AUTO) 0.7 % (0.0-2.0); EOSINOPHILS # (AUTO) 0.1 K/uL (0.0-0.4); EOSINOPHILS % (AUTO) 0.7 % (0.0-4.0); HEMATOCRIT 43.2 % (36-54); HEMOGLOBIN 14.4 g/dL (14.0-18.0); LYMPHOCYTES # (AUTO) 2.2 K/uL (1.0-5.5); LYMPHOCYTES % (AUTO) 20.5 % (20.5-51.5); MEAN CORPUSCULAR HEMOGLOBIN 33 pg (27-31); MEAN CORPUSCULAR HGB CONC 33 % (32-36); MEAN CORPUSCULAR VOLUME 98 fL (79.0-98.0); MONOCYTES # (AUTO) 0.7 K/uL (0.0-1.0); MONOCYTES % (AUTO) 6.6 % (1.7-9.3); NEUTROPHILS # (AUTO) 7.7 K/uL (1.8-7.7); NEUTROPHILS % (AUTO) 71.5 % (40.0-70.0); PLATELET COUNT (AUTO) 258 K/uL (130-430); RED CELL DISTRIBUTION WIDTH 14.8 % (9.0-15.0); WHITE BLOOD COUNT (AUTO) 10.8 K/uL (4.8-10.8)
[2017-08-11 02:54] LABS: TOTAL BILIRUBIN 0.4 mg/dL (0.0-1.0)
[2017-08-11 03:07] LABS: CREATININE 9.23 mg/dL (0.55-1.30); POTASSIUM 6.8 mmol/L (3.5-5.1)
[2017-08-11] MEDS ORDERED: SODIUM POLYSTYRENE SULFONATE 15 GM/60 ML UDBTL RC ONE (03:15)
[2017-08-11] MEDS ORDERED: SODIUM POLYSTYRENE SULFONATE 15 GM/60 ML UDBTL PO ONE (03:15)
[2017-08-11] MEDS: SODIUM POLYSTYRENE SULFONATE 15 GM/60 ML UDBTL PO SCH ×3 (03:30→14:42)
[2017-08-11] MEDS ORDERED: GABAPENTIN 100 MG CAPSULE PO PRN (03:30)
[2017-08-11] MEDS ORDERED: METOCLOPRAMIDE HCL 10 MG TABLET PO PRN (03:30)
[2017-08-11] MEDS ORDERED: INSULIN REGULAR, HUMAN 100 UNITS/ML, 10 ML VIAL (novoLIN R) SUBCUT PRN (03:30)
[2017-08-11] MEDS ORDERED: MORPHINE 2 MG/ML INJ. SYRINGE IVP PRN (03:30)
[2017-08-11] MEDS ORDERED: ACETAMINOPHEN 325 MG TABLET PO PRN (03:30)
[2017-08-11] MEDS ORDERED: MORPHINE 4 MG/ML INJ. SYRINGE IVP ONE (03:30)
[2017-08-11 04:24] VITALS: BP_SYST 192
[2017-08-11] MEDS: ONDANSETRON HCL 4 MG/2 ML VIAL IVP PRN ×4 (04:25→18:55)
[2017-08-11] MEDS ORDERED: MORPHINE 4 MG/ML INJ. SYRINGE IVP PRN (04:30)
[2017-08-11 04:33] LABS: FREE T4 (FREE THYROXINE) 0.6 ng/dL (0.6-1.6); THYROID STIMULATING HORMONE 0.66 uIu/mL (0.34-4.82)
[2017-08-11] MEDS ORDERED: hydrALAZINE HCL 20 MG/ML VIAL IVP PRN (04:45)
[2017-08-11] MEDS ORDERED: hydrALAZINE HCL 25 MG TABLET PO SCH (06:00)
[2017-08-11] MEDS ORDERED: LABETALOL HCL 100 MG TABLET PO SCH (06:00)
[2017-08-11] MEDS ORDERED: BISACODYL 10 MG/SUPPOSITORY RC PRN (06:15)
[2017-08-11] MEDS ORDERED: SIMETHICONE 80 MG TAB.CHEW PO PRN (06:15)
[2017-08-11] MEDS ORDERED: HYDROcodone/ACETAMIN 10-325 MG TAB PO PRN (06:15)
[2017-08-11] MEDS ORDERED: METOCLOPRAMIDE HCL 10 MG/2 ML VIAL IVP SCH (06:15)
[2017-08-11] MEDS ORDERED: ZOLPIDEM TARTRATE 5 MG TABLET PO PRN (06:15)
[2017-08-11] MEDS ORDERED: POTASSIUM CHLORIDE 20 MEQ TAB.PRT.SR PO PRN (06:15)
[2017-08-11] MEDS: MORPHINE 4 MG/ML INJ. SYRINGE IVP PRN ×5 (06:43→22:54)
[2017-08-11] MEDS ORDERED: METOCLOPRAMIDE HCL 10 MG TABLET PO ONE (07:15)
[2017-08-11] MEDS ORDERED: cloNIDine HCL 0.1 MG TABLET PO ONE (08:00)
[2017-08-11] MEDS: LORazepam 2 MG/ML VIAL IVP PRN (08:28)
[2017-08-11] MEDS: METOPROLOL TARTRATE 50 MG TABLET PO SCH ×2 (08:29→20:40)
[2017-08-11] MEDS: PANTOPRAZOLE SODIUM 40 MG TAB PO SCH (08:29)
[2017-08-11] MEDS: DOCUSATE SODIUM 100 MG CAPSULE PO SCH ×2 (08:29→20:40)
[2017-08-11] MEDS: FUROSEMIDE 40 MG TABLET PO SCH ×2 (08:30→20:39)
[2017-08-11] MEDS: CINACALCET HCL 30 MG TABLET PO SCH (08:30)
[2017-08-11] MEDS: OXYCODONE/ACETAMINOPHEN *10*mg/325 mg TABLET PO SCH ×3 (08:31→20:41)
[2017-08-11] MEDS: LUBIPROSTONE 8 MCG CAPSULE PO SCH ×2 (08:39→17:30)
[2017-08-11] MEDS ORDERED: PANTOPRAZOLE SODIUM 40 MG/VIAL (PROTONIX) IVP SCH (09:00)
[2017-08-11 12:49] VITALS: BP_SYST 183
[2017-08-11] MEDS: METOCLOPRAMIDE HCL 10 MG TABLET PO SCH ×2 (14:41→22:54)
[2017-08-11] MEDS ORDERED: ENALAPRILAT DIHYDRATE 1.25 MG/ML VIAL IVP ONE (14:45)
[2017-08-11] MEDS: SEVELAMER HCL 800 MG TABLET PO SCH (17:30)
[2017-08-11 18:05] VITALS: BP_SYST 149
[2017-08-11 20:15] VITALS: BP_SYST 128
[2017-08-11] MEDS ORDERED: POLYETHYLENE GLYCOL 3350, 17 GM/ POWD.PACK PO SCH (21:00)
[2017-08-11] MEDS ORDERED: LATANOPROST 2.5 ML DROPS (XALATAN) BOTH EYES SCH (21:00)
[2017-08-11] MEDS: BRIMONIDINE TARTRATE 0.2% 5 mL EYE DROPS BOTH EYES SCH (22:10)
[2017-08-11] MEDS: TIMOLOL MALEATE 0.5% OPHTHALMIC DROPS 5 ML BOTH EYES SCH (22:10)
[2017-08-12 00:58] VITALS: BP_SYST 132
[2017-08-12] MEDS: ONDANSETRON HCL 4 MG/2 ML VIAL IVP PRN ×3 (02:56→19:03)
[2017-08-12] MEDS: MORPHINE 4 MG/ML INJ. SYRINGE IVP PRN ×5 (02:56→19:03)
[2017-08-12 06:13] LABS: BASOPHILS # (AUTO) 0.1 K/uL (0.0-0.2); BASOPHILS % (AUTO) 0.9 % (0.0-2.0); EOSINOPHILS # (AUTO) 0.1 K/uL (0.0-0.4); EOSINOPHILS % (AUTO) 0.9 % (0.0-4.0); HEMATOCRIT 37.8 % (36-54); HEMOGLOBIN 12.8 g/dL (14.0-18.0); LYMPHOCYTES # (AUTO) 2.6 K/uL (1.0-5.5); LYMPHOCYTES % (AUTO) 29.1 % (20.5-51.5); MEAN CORPUSCULAR HEMOGLOBIN 33 pg (27-31); MEAN CORPUSCULAR HGB CONC 34 % (32-36); MEAN CORPUSCULAR VOLUME 97 fL (79.0-98.0); MONOCYTES # (AUTO) 0.7 K/uL (0.0-1.0); MONOCYTES % (AUTO) 8.2 % (1.7-9.3); NEUTROPHILS # (AUTO) 5.4 K/uL (1.8-7.7); NEUTROPHILS % (AUTO) 60.9 % (40.0-70.0); PLATELET COUNT (AUTO) 243 K/uL (130-430); RED BLOOD CELL COUNT(AUTO) 3.89 MIL/uL (4.2-6.2); RED CELL DISTRIBUTION WIDTH 14.3 % (9.0-15.0); WHITE BLOOD COUNT (AUTO) 8.9 K/uL (4.8-10.8)
[2017-08-12 06:24] LABS: CALCIUM 8.7 mg/dL (8.4-11.0); PHOSPHORUS 8.7 mg/dL (2.7-4.5); POTASSIUM 4.3 mmol/L (3.5-5.1)
[2017-08-12] MEDS: METOCLOPRAMIDE HCL 10 MG TABLET PO SCH ×2 (06:28→14:53)
[2017-08-12 06:38] LABS: CREATININE 7.85 mg/dL (0.55-1.30)
[2017-08-12] MEDS: SEVELAMER HCL 800 MG TABLET PO SCH ×3 (07:48→17:42)
[2017-08-12] MEDS: LORazepam 2 MG/ML VIAL IVP PRN ×3 (07:50→19:32)
[2017-08-12] MEDS: LUBIPROSTONE 8 MCG CAPSULE PO SCH ×3 (08:00→17:41)
[2017-08-12 08:16] LABS: T4 (THYROXINE) 5.6 ug/dL (4.5-12.0)
[2017-08-12] MEDS: CINACALCET HCL 30 MG TABLET PO SCH ×2 (08:57→09:00)
[2017-08-12] MEDS: PANTOPRAZOLE SODIUM 40 MG TAB PO SCH (08:57)
[2017-08-12] MEDS: FUROSEMIDE 40 MG TABLET PO SCH (08:57)
[2017-08-12] MEDS: DOCUSATE SODIUM 100 MG CAPSULE PO SCH (08:58)
[2017-08-12] MEDS: OXYCODONE/ACETAMINOPHEN *10*mg/325 mg TABLET PO SCH ×3 (08:58→15:00)
[2017-08-12] MEDS: METOPROLOL TARTRATE 50 MG TABLET PO SCH (08:59)
[2017-08-12] MEDS: BRIMONIDINE TARTRATE 0.2% 5 mL EYE DROPS BOTH EYES SCH (09:01)
[2017-08-12] MEDS: TIMOLOL MALEATE 0.5% OPHTHALMIC DROPS 5 ML BOTH EYES SCH (09:01)
[2017-08-12 09:14] VITALS: BP_SYST 163
[2017-08-12 11:34] VITALS: BP_SYST 179
[2017-08-12] MEDS ORDERED: MUPIROCIN 2% TOPICAL OINTMENT 22 GM NS SCH (12:45)
[2017-08-12] MEDS ORDERED: HEPARIN SODIUM,PORCINE 5000 UNITS/ML VIAL IVP ONE ×2 (15:15)
[2017-08-12 15:44] VITALS: BP_SYST 161
[2017-08-12 17:49] VITALS: BP_SYST 146
[2017-08-12 19:14] VITALS: BP_SYST 158
== END 2017-08-12 20:00 | disposition home or self-care (01) | DRG 73 ==
LOC: SED 00:45 → STU 03:26
PROVIDERS: ADMIT Family Medicine; ATTEND Family Medicine
PROC: 5A1D70Z Performance of Urinary Filtration, Intermittent, Less than 6 Hours Per Day (ICD-10-PCS; principal; 2017-08-11)
PROC: 5A1D70Z Performance of Urinary Filtration, Intermittent, Less than 6 Hours Per Day (ICD-10-PCS; 2017-08-12)
DX: E11.43 Type 2 diabetes mellitus with diabetic autonomic (poly)neuropathy (principal); N18.6 End stage renal disease; E11.22 Type 2 diabetes mellitus with diabetic chronic kidney disease; I12.0 Hypertensive chronic kidney disease with stage 5 chronic kidney disease or end stage renal disease; F11.20 Opioid dependence, uncomplicated; E87.5 Hyperkalemia; G89.4 Chronic pain syndrome; F41.1 Generalized anxiety disorder; K56.41 Fecal impaction; D63.8 Anemia in other chronic diseases classified elsewhere; K31.84 Gastroparesis; E78.5 Hyperlipidemia, unspecified; I16.0 Hypertensive urgency; E11.40 Type 2 diabetes mellitus with diabetic neuropathy, unspecified; E11.319 Type 2 diabetes mellitus with unspecified diabetic retinopathy without macular edema; Z79.1 Long term (current) use of non-steroidal anti-inflammatories (NSAID); Z79.899 Other long term (current) drug therapy; Z88.8 Allergy status to other drugs, medicaments and biological substances
CPT/HCPCS: 36415; 80048; 80053; 80061; 82150-TC; 82962; 83036; 83690-TC; 83735-TC; 83880; 84100-TC; 84436; 84439; 84443-TC; 84479; 85025; 87081; 90935; 90937; 93005; 96374; 96375; 99285; J0360; J1200; J1644; J2060; J2270; J2405; J2765; J3010; J7030; J8597

== ENCOUNTER 2017-08-22 05:58 | Emergency (ER) | payer OTHER, MEDICAID ==
[~2017-08-22] VITALS: Ht 177.8 cm; Wt 108.9 kg
[~2017-08-22 05:58] MED LIST changes: -BACTROBAN NS; -CINA90TA PO; -HYDR-1115 PO; -HYDR-1189 PO; -LABE100T PO; -LUBI8CAP PO; -OXYC-133 PO; -POLY17PO4 PO
[2017-08-22 06:03] VITALS: BP_SYST 182
[2017-08-22] MEDS ORDERED: LORazepam 2 MG/ML VIAL (FOR ER USE) IM ONE (06:15)
[2017-08-22] MEDS ORDERED: ONDANSETRON HCL 4 MG/2 ML VIAL IM ONE (06:15)
[2017-08-22] MEDS ORDERED: HYDROmorphone 1 MG INJ. 1 MG/ML AMPUL IM ONE (06:15)
[2017-08-22] MEDS ORDERED: DIPHENHYDRAMINE INJ 50 MG/ML VIAL IM ONE (06:15)
[2017-08-22] MEDS ORDERED: fentaNYL CITRATE/PF 100 MCG/2 ML AMP IM ONE (07:15)
[2017-08-22 07:33] VITALS: BP_SYST 193
== END 2017-08-22 07:33 | disposition home or self-care (01) ==
LOC: SED 05:58
DX: E11.43 Type 2 diabetes mellitus with diabetic autonomic (poly)neuropathy (principal); E11.21 Type 2 diabetes mellitus with diabetic nephropathy; K31.84 Gastroparesis; I12.0 Hypertensive chronic kidney disease with stage 5 chronic kidney disease or end stage renal disease; E11.22 Type 2 diabetes mellitus with diabetic chronic kidney disease; N18.6 End stage renal disease; Z99.2 Dependence on renal dialysis; Z79.4 Long term (current) use of insulin; Z88.8 Allergy status to other drugs, medicaments and biological substances; Z79.899 Other long term (current) drug therapy
CPT/HCPCS: 96372; 99284; J1200; J2060; J2405; J3010

== ENCOUNTER 2017-08-22 20:22 | Emergency (ER) | payer OTHER, MEDICAID ==
[~2017-08-22] VITALS: Ht 180.3 cm; Wt 104.3 kg
[2017-08-22 20:39] VITALS: BP_SYST 167
[2017-08-22] MEDS ORDERED: MORPHINE 4 MG/ML INJ. SYRINGE IVP ONE ×2 (21:00→21:15)
[2017-08-22] MEDS ORDERED: ONDANSETRON HCL 4 MG/2 ML VIAL IVP ONE (21:00)
[2017-08-22] MEDS ORDERED: LORazepam 2 MG/ML VIAL (FOR ER USE) IVP ONE (21:15)
[2017-08-22 21:24] LABS: BASOPHILS # (AUTO) 0.1 K/uL (0.0-0.2); BASOPHILS % (AUTO) 0.9 % (0.0-2.0); EOSINOPHILS # (AUTO) 0.1 K/uL (0.0-0.4); HEMATOCRIT 35.1 % (36-54); HEMOGLOBIN 11.9 g/dL (14.0-18.0); LYMPHOCYTES # (AUTO) 2.5 K/uL (1.0-5.5); LYMPHOCYTES % (AUTO) 20.2 % (20.5-51.5); MEAN CORPUSCULAR HEMOGLOBIN 33 pg (27-31); MEAN CORPUSCULAR HGB CONC 34 % (32-36); MEAN CORPUSCULAR VOLUME 97 fL (79.0-98.0); MONOCYTES # (AUTO) 0.5 K/uL (0.0-1.0); MONOCYTES % (AUTO) 4.3 % (1.7-9.3); NEUTROPHILS # (AUTO) 9.1 K/uL (1.8-7.7); NEUTROPHILS % (AUTO) 73.6 % (40.0-70.0); PLATELET COUNT (AUTO) 232 K/uL (130-430); RED BLOOD CELL COUNT(AUTO) 3.63 MIL/uL (4.2-6.2); RED CELL DISTRIBUTION WIDTH 13.9 % (9.0-15.0); WHITE BLOOD COUNT (AUTO) 12.3 K/uL (4.8-10.8)
[2017-08-22 21:48] LABS: PROTHROMBIN TIME 9.8 SECS (9.5-12.5)
[2017-08-22 21:49] LABS: CALCIUM 7.9 mg/dL (8.4-11.0); POTASSIUM 5.6 mmol/L (3.5-5.1)
[2017-08-22 21:57] LABS: CREATININE 9.21 mg/dL (0.55-1.30)
[2017-08-22 22:09] LABS: TOTAL BILIRUBIN 0.3 mg/dL (0.0-1.0)
[2017-08-22 22:10] LABS: ALBUMIN 3.5 g/dL (3.4-4.8)
[2017-08-23] MEDS ORDERED: LORazepam 2 MG/ML VIAL (FOR ER USE) IVP ONE (00:15)
[2017-08-23] MEDS ORDERED: MORPHINE 4 MG/ML INJ. SYRINGE IVP ONE (00:15)
[2017-08-23] MEDS ORDERED: ONDANSETRON HCL 4 MG/2 ML VIAL IVP ONE (00:15)
[2017-08-23 01:04] VITALS: BP_SYST 158
== END 2017-08-23 01:04 | disposition home or self-care (01) ==
LOC: SED 20:22
DX: G89.29 Other chronic pain (principal); R10.84 Generalized abdominal pain; I12.9 Hypertensive chronic kidney disease with stage 1 through stage 4 chronic kidney disease, or unspecified chronic kidney disease; E11.22 Type 2 diabetes mellitus with diabetic chronic kidney disease; N18.9 Chronic kidney disease, unspecified; Z79.4 Long term (current) use of insulin; Z99.2 Dependence on renal dialysis; E11.43 Type 2 diabetes mellitus with diabetic autonomic (poly)neuropathy; K31.84 Gastroparesis; Z88.8 Allergy status to other drugs, medicaments and biological substances; Z79.899 Other long term (current) drug therapy
CPT/HCPCS: 36415; 71045; 80053; 82550; 83690; 84484; 85025; 85610; 85730; 93005; 96374; 96375; 96376; 99285; J2060 ×2; J2270 ×2; J2405 ×2

== ENCOUNTER 2017-08-30 02:29 | Emergency (ER) | payer OTHER, MEDICAID ==
[~2017-08-30] VITALS: Ht 177.8 cm; Wt 104.3 kg
[~2017-08-30 02:29] MED LIST changes: -FURO40TA5 PO; -SITA100T7 PO
[2017-08-30] MEDS ORDERED: NACL 0.9% 1,000 ML IV ONE (02:31)
[2017-08-30 02:38] VITALS: BP_SYST 240
[2017-08-30] MEDS ORDERED: MORPHINE 4 MG/ML INJ. SYRINGE IVP ONE ×2 (02:45→03:45)
[2017-08-30] MEDS ORDERED: ONDANSETRON HCL 4 MG/2 ML VIAL IVP ONE (02:45)
[2017-08-30] MEDS ORDERED: MORPHINE SULFATE 10 MG/ML VIAL ONE ×2 (03:11→03:44)
[2017-08-30] MEDS ORDERED: cloNIDine HCL 0.1 MG TABLET PO ONE ×2 (03:45→06:30)
[2017-08-30] MEDS ORDERED: fentaNYL CITRATE/PF 100 MCG/2 ML AMP IVP ONE ×3 (03:45→06:45)
[2017-08-30 04:37] LABS: CALCIUM 8.7 mg/dL (8.4-11.0); POTASSIUM 4.9 mmol/L (3.5-5.1); PROTHROMBIN TIME 9.9 SECS (9.5-12.5)
[2017-08-30 04:41] LABS: ALBUMIN 3.7 g/dL (3.4-4.8); TOTAL BILIRUBIN 0.4 mg/dL (0.0-1.0)
[2017-08-30 04:44] LABS: CREATININE 8.4 mg/dL (0.55-1.30)
[2017-08-30 05:00] LABS: BASOPHILS # (AUTO) 0.1 K/uL (0.0-0.2); BASOPHILS % (AUTO) 0.4 % (0.0-2.0); EOSINOPHILS % (AUTO) 0.3 % (0.0-4.0); HEMATOCRIT 33.8 % (36-54); HEMOGLOBIN 11.7 g/dL (14.0-18.0); LYMPHOCYTES # (AUTO) 1.4 K/uL (1.0-5.5); LYMPHOCYTES % (AUTO) 8.4 % (20.5-51.5); MEAN CORPUSCULAR HEMOGLOBIN 33 pg (27-31); MEAN CORPUSCULAR HGB CONC 35 % (32-36); MEAN CORPUSCULAR VOLUME 94 fL (79.0-98.0); MONOCYTES # (AUTO) 0.5 K/uL (0.0-1.0); MONOCYTES % (AUTO) 3.1 % (1.7-9.3); NEUTROPHILS # (AUTO) 14.4 K/uL (1.8-7.7); NEUTROPHILS % (AUTO) 87.8 % (40.0-70.0); PLATELET COUNT (AUTO) 281 K/uL (130-430); RED CELL DISTRIBUTION WIDTH 13.7 % (9.0-15.0); WHITE BLOOD COUNT (AUTO) 16.4 K/uL (4.8-10.8)
[2017-08-30] MEDS ORDERED: cefTRIAXone 1 GM IVPB PREMIX 50 ML IV ONE (06:30)
[2017-08-30 07:18] VITALS: BP_SYST 202
== END 2017-08-30 07:18 | disposition home or self-care (01) ==
LOC: SED 02:29
DX: R10.9 Unspecified abdominal pain (principal); R11.10 Vomiting, unspecified; E11.40 Type 2 diabetes mellitus with diabetic neuropathy, unspecified; E11.43 Type 2 diabetes mellitus with diabetic autonomic (poly)neuropathy; K31.84 Gastroparesis; I12.0 Hypertensive chronic kidney disease with stage 5 chronic kidney disease or end stage renal disease; E11.22 Type 2 diabetes mellitus with diabetic chronic kidney disease; N18.6 End stage renal disease; Z99.2 Dependence on renal dialysis; Z79.899 Other long term (current) drug therapy; Z88.8 Allergy status to other drugs, medicaments and biological substances
CPT/HCPCS: 36415; 71045; 80053; 82150; 82550; 83690; 84484; 85025; 85610; 85730; 93005; 96361; 96365; 96375; 96376; 99285; J0696; J2270; J2405; J3010; J7030

== ENCOUNTER 2017-08-31 09:45 | Emergency (ER) | payer OTHER, MEDICAID ==
[~2017-08-31] VITALS: Ht 177.8 cm; Wt 108.9 kg
[2017-08-31 10:05] VITALS: BP_SYST 165
[2017-08-31] MEDS ORDERED: ONDANSETRON HCL 4 MG/2 ML VIAL IM ONE (10:30)
[2017-08-31] MEDS ORDERED: fentaNYL CITRATE/PF 100 MCG/2 ML AMP IM ONE (10:30)
[2017-08-31 11:00] VITALS: BP_SYST 167
== END 2017-08-31 11:00 | disposition home or self-care (01) ==
LOC: SED 09:45
DX: E11.43 Type 2 diabetes mellitus with diabetic autonomic (poly)neuropathy (principal); K31.84 Gastroparesis; N28.9 Disorder of kidney and ureter, unspecified; I10 Essential (primary) hypertension; Z88.8 Allergy status to other drugs, medicaments and biological substances; Z79.899 Other long term (current) drug therapy
CPT/HCPCS: 96372; 99284; J2405; J3010

== ENCOUNTER 2017-09-27 08:03 | Inpatient (IN) | payer OTHER, MEDICAID ==
[~2017-09-27] VITALS: Ht 177.8 cm; Wt 103.9 kg
[2017-09-27 08:05] VITALS: BP_SYST 207
[2017-09-27] MEDS ORDERED: HALOPERIDOL LACTATE 5 MG/ML VIAL IM ONE (08:45)
[2017-09-27] MEDS ORDERED: DIPHENHYDRAMINE INJ 50 MG/ML VIAL IM ONE (08:45)
[2017-09-27] MEDS ORDERED: fentaNYL CITRATE/PF 100 MCG/2 ML AMP IM ONE (08:45)
[2017-09-27 09:20] LABS: ALBUMIN 4.1 g/dL (3.4-4.8); CALCIUM 8.9 mg/dL (8.4-11.0); TOTAL BILIRUBIN 0.4 mg/dL (0.0-1.0)
[2017-09-27 09:24] LABS: POTASSIUM 6.2 mmol/L (3.5-5.1)
[2017-09-27 09:25] LABS: CREATININE 10.6 mg/dL (0.55-1.30)
[2017-09-27 09:27] LABS: BASOPHILS # (AUTO) 0.1 K/uL (0.0-0.2); EOSINOPHILS % (AUTO) 0.2 % (0.0-4.0); HEMOGLOBIN 12.2 g/dL (14.0-18.0); RED BLOOD CELL COUNT(AUTO) 3.75 MIL/uL (4.2-6.2)
[2017-09-27 09:37] LABS: BASOPHILS % (AUTO) 0.8 % (0.0-2.0); HEMATOCRIT 36.7 % (36-54); LYMPHOCYTES # (AUTO) 1.6 K/uL (1.0-5.5); LYMPHOCYTES % (AUTO) 10.2 % (20.5-51.5); MEAN CORPUSCULAR HEMOGLOBIN 32 pg (27-31); MEAN CORPUSCULAR HGB CONC 33 % (32-36); MEAN CORPUSCULAR VOLUME 98 fL (79.0-98.0); MONOCYTES # (AUTO) 0.4 K/uL (0.0-1.0); MONOCYTES % (AUTO) 2.8 % (1.7-9.3); NEUTROPHILS # (AUTO) 13.5 K/uL (1.8-7.7); PLATELET COUNT (AUTO) 298 K/uL (130-430); RED CELL DISTRIBUTION WIDTH 15.5 % (9.0-15.0); WHITE BLOOD COUNT (AUTO) 15.6 K/uL (4.8-10.8)
[2017-09-27] MEDS ORDERED: SODIUM BICARBONATE 8.4% VIAL 50 MEQ/50 ML VIAL INJ ONE (10:15)
[2017-09-27] MEDS ORDERED: fentaNYL CITRATE/PF 100 MCG/2 ML AMP IVP ONE (10:15)
[2017-09-27] MEDS ORDERED: INSULIN REGULAR, HUMAN 100 UNITS/ML, 10 ML VIAL IVP ONE (10:15)
[2017-09-27] MEDS ORDERED: DEXTROSE 50% JECT 50 ML DISP.SYRIN IVP ONE (10:15)
[2017-09-27] MEDS ORDERED: INSULIN REGULAR, HUMAN 100 UNITS/ML, 10 ML VIAL (novoLIN R) ONE (10:30)
[2017-09-27] MEDS ORDERED: METHOCARBAMOL 500 MG TABLET PO PRN (11:00)
[2017-09-27] MEDS ORDERED: ONDANSETRON 4 MG ODT TAB PO SCH (11:00)
[2017-09-27] MEDS ORDERED: D5NS 1,000 ML IV SCH (11:00)
[2017-09-27] MEDS ORDERED: METOCLOPRAMIDE HCL 10 MG TABLET PO PRN (11:00)
[2017-09-27] MEDS ORDERED: GABAPENTIN 300 MG CAPSULE PO PRN (11:00)
[2017-09-27] MEDS ORDERED: ACETAMINOPHEN 325 MG TABLET PO PRN (11:00)
[2017-09-27 11:09] VITALS: BP_SYST 247
[2017-09-27] MEDS ORDERED: DEXTROSE 50% JECT 50 ML DISP.SYRIN IVP PRN (11:15)
[2017-09-27] MEDS ORDERED: hydrALAZINE HCL 20 MG/ML VIAL IVP PRN (11:15)
[2017-09-27] MEDS ORDERED: hydrALAZINE HCL 20 MG/ML VIAL ONE ×2 (11:37→17:50)
[2017-09-27] MEDS ORDERED: HYDROmorphone 2 MG/ML VIAL ONE (11:51)
[2017-09-27] MEDS: HYDROmorphone 2 MG/ML VIAL IVP PRN ×3 (11:52→22:15)
[2017-09-27] MEDS: HYDROmorphone 1 MG INJ. 1 MG/ML AMPUL IVP PRN ×2 (14:45→18:25)
[2017-09-27 16:00] VITALS: BP_SYST 248
[2017-09-27 20:00] VITALS: BP_SYST 181
[2017-09-27] MEDS: HYDROcodone/ACETAMIN 10-325 MG TAB PO PRN (21:27)
[2017-09-27] MEDS: METOPROLOL TARTRATE 50 MG TABLET PO SCH (21:28)
[2017-09-27] MEDS ORDERED: HEPARIN SODIUM,PORCINE 10,000 UNIT/ML VIAL IV ONE (21:45)
[2017-09-27] MEDS ORDERED: HEPARIN SODIUM,PORCINE 5000 UNITS/ML VIAL ONE (21:57)
[2017-09-27] MEDS: D5/0.45 NS 1,000 ML IV SCH (22:39)
[2017-09-27] MEDS: INSULIN REGULAR, HUMAN 100 UNITS/ML, 10 ML VIAL (novoLIN R) SUBCUT PRN (23:31)
[2017-09-28] VITALS (7 sets, daily range): BP systolic 135–203
[2017-09-28] MEDS: HYDROmorphone 2 MG/ML VIAL IVP PRN ×6 (02:09→21:16)
[2017-09-28] MEDS: ONDANSETRON HCL 4 MG/2 ML VIAL IVP PRN ×4 (02:39→21:16)
[2017-09-28] MEDS: PANTOPRAZOLE SODIUM 40 MG TAB PO SCH (06:01)
[2017-09-28] MEDS: METOPROLOL TARTRATE 50 MG TABLET PO SCH ×2 (08:51→20:14)
[2017-09-28] MEDS: HYDROcodone/ACETAMIN 10-325 MG TAB PO PRN ×2 (08:52→23:04)
[2017-09-28] MEDS: LABETALOL 100 MG/ 20ML VIAL IVP PRN (10:07)
[2017-09-28] MEDS ORDERED: amLODIPine BESYLATE 5 MG TABLET PO ONE (11:45)
[2017-09-28] MEDS ORDERED: hydrALAZINE HCL 20 MG/ML VIAL IVP ONE (14:15)
[2017-09-28] MEDS ORDERED: cloNIDine HCL 0.1 MG TABLET PO ONE (16:45)
[2017-09-28] MEDS: hydrALAZINE HCL 20 MG/ML VIAL IVP SCH (21:20)
[2017-09-28] MEDS: D5/0.45 NS 1,000 ML IV SCH (22:30)
[2017-09-29 00:48] VITALS: BP_SYST 143
[2017-09-29] MEDS: HYDROmorphone 2 MG/ML VIAL IVP PRN ×6 (01:10→21:11)
[2017-09-29] MEDS: PANTOPRAZOLE SODIUM 40 MG TAB PO SCH (05:10)
[2017-09-29] MEDS: hydrALAZINE HCL 20 MG/ML VIAL IVP SCH ×3 (05:10→22:00)
[2017-09-29] MEDS: ONDANSETRON HCL 4 MG/2 ML VIAL IVP PRN ×2 (05:11→11:09)
[2017-09-29 06:23] LABS: BASOPHILS % (AUTO) 0.3 % (0.0-2.0); EOSINOPHILS # (AUTO) 0.1 K/uL (0.0-0.4); EOSINOPHILS % (AUTO) 0.7 % (0.0-4.0); HEMATOCRIT 30.9 % (36-54); HEMOGLOBIN 10.9 g/dL (14.0-18.0); LYMPHOCYTES # (AUTO) 2.3 K/uL (1.0-5.5); LYMPHOCYTES % (AUTO) 23.6 % (20.5-51.5); MEAN CORPUSCULAR HEMOGLOBIN 34 pg (27-31); MEAN CORPUSCULAR HGB CONC 35 % (32-36); MEAN CORPUSCULAR VOLUME 97 fL (79.0-98.0); MONOCYTES # (AUTO) 0.8 K/uL (0.0-1.0); MONOCYTES % (AUTO) 8.5 % (1.7-9.3); NEUTROPHILS # (AUTO) 6.7 K/uL (1.8-7.7); NEUTROPHILS % (AUTO) 66.9 % (40.0-70.0); PLATELET COUNT (AUTO) 254 K/uL (130-430); RED CELL DISTRIBUTION WIDTH 15.3 % (9.0-15.0); WHITE BLOOD COUNT (AUTO) 9.9 K/uL (4.8-10.8)
[2017-09-29 06:59] LABS: CALCIUM 8.5 mg/dL (8.4-11.0); PHOSPHORUS 9.4 mg/dL (2.7-4.5); POTASSIUM 4.9 mmol/L (3.5-5.1)
[2017-09-29 07:16] LABS: CREATININE 10.29 mg/dL (0.55-1.30)
[2017-09-29] MEDS ORDERED: amLODIPine BESYLATE 5 MG TABLET PO SCH (09:00)
[2017-09-29 09:14] VITALS: BP_SYST 202
[2017-09-29] MEDS: METOPROLOL TARTRATE 50 MG TABLET PO SCH ×2 (09:16→21:10)
[2017-09-29 12:05] VITALS: BP_SYST 185
[2017-09-29] MEDS ORDERED: HEPARIN SODIUM,PORCINE 5000 UNITS/ML VIAL IV PRN (15:00)
[2017-09-29 16:05] VITALS: BP_SYST 141
[2017-09-29 19:10] VITALS: BP_SYST 154
[2017-09-30 00:32] VITALS: BP_SYST 143
[2017-09-30] MEDS: HYDROmorphone 1 MG INJ. 1 MG/ML AMPUL IVP PRN (01:02)
[2017-09-30] MEDS: ONDANSETRON HCL 4 MG/2 ML VIAL IVP PRN ×3 (02:01→19:48)
[2017-09-30] MEDS: D5/0.45 NS 1,000 ML IV SCH ×2 (02:06→22:22)
[2017-09-30] MEDS: HYDROmorphone 2 MG/ML VIAL IVP PRN ×5 (05:07→21:48)
[2017-09-30] MEDS: PANTOPRAZOLE SODIUM 40 MG TAB PO SCH (05:10)
[2017-09-30] MEDS: hydrALAZINE HCL 20 MG/ML VIAL IVP SCH (05:11)
[2017-09-30 08:00] VITALS: BP_SYST 160
[2017-09-30] MEDS: METOPROLOL TARTRATE 50 MG TABLET PO SCH ×2 (09:05→21:47)
[2017-09-30] MEDS: amLODIPine BESYLATE 5 MG TABLET PO SCH (09:05)
[2017-09-30 12:56] VITALS: BP_SYST 136
[2017-09-30 14:56] LABS: BASOPHILS # (AUTO) 0.1 K/uL (0.0-0.2); BASOPHILS % (AUTO) 0.6 % (0.0-2.0); CALCIUM 8.8 mg/dL (8.4-11.0); EOSINOPHILS # (AUTO) 0.1 K/uL (0.0-0.4); EOSINOPHILS % (AUTO) 0.5 % (0.0-4.0); HEMATOCRIT 34.1 % (36-54); HEMOGLOBIN 11.6 g/dL (14.0-18.0); LYMPHOCYTES % (AUTO) 19.9 % (20.5-51.5); MEAN CORPUSCULAR HEMOGLOBIN 33 pg (27-31); MEAN CORPUSCULAR HGB CONC 34 % (32-36); MEAN CORPUSCULAR VOLUME 96 fL (79.0-98.0); MONOCYTES # (AUTO) 0.8 K/uL (0.0-1.0); MONOCYTES % (AUTO) 7.5 % (1.7-9.3); NEUTROPHILS # (AUTO) 7.1 K/uL (1.8-7.7); NEUTROPHILS % (AUTO) 71.5 % (40.0-70.0); PLATELET COUNT (AUTO) 285 K/uL (130-430); POTASSIUM 4.7 mmol/L (3.5-5.1); RED BLOOD CELL COUNT(AUTO) 3.57 MIL/uL (4.2-6.2); RED CELL DISTRIBUTION WIDTH 15.1 % (9.0-15.0); WHITE BLOOD COUNT (AUTO) 10.1 K/uL (4.8-10.8)
[2017-09-30 15:04] LABS: CREATININE 8.59 mg/dL (0.55-1.30)
[2017-09-30] MEDS ORDERED: hydrALAZINE HCL 25 MG TABLET PO ONE (15:15)
[2017-09-30 16:11] VITALS: BP_SYST 133
[2017-09-30] MEDS: INSULIN REGULAR, HUMAN 100 UNITS/ML, 10 ML VIAL (novoLIN R) SUBCUT PRN (17:21)
[2017-09-30] MEDS ORDERED: HYDROmorphone 2 MG/ML VIAL IVP ONE (18:00)
[2017-09-30] MEDS ORDERED: HYDROmorphone 2 MG/ML VIAL ONE (18:37)
[2017-09-30 20:00] VITALS: BP_SYST 140
[2017-09-30] MEDS: hydrALAZINE HCL 25 MG TABLET PO SCH (21:46)
[2017-10-01] MEDS: INSULIN REGULAR, HUMAN 100 UNITS/ML, 10 ML VIAL (novoLIN R) SUBCUT PRN ×2 (00:01→17:47)
[2017-10-01 00:20] VITALS: BP_SYST 143
[2017-10-01] MEDS: HYDROmorphone 2 MG/ML VIAL IVP PRN ×6 (01:49→21:43)
[2017-10-01] MEDS: ONDANSETRON HCL 4 MG/2 ML VIAL IVP PRN ×2 (05:37→12:57)
[2017-10-01] MEDS: hydrALAZINE HCL 25 MG TABLET PO SCH ×3 (05:42→21:45)
[2017-10-01] MEDS: PANTOPRAZOLE SODIUM 40 MG TAB PO SCH (05:42)
[2017-10-01 08:00] VITALS: BP_SYST 161
[2017-10-01] MEDS: METOPROLOL TARTRATE 50 MG TABLET PO SCH ×2 (09:34→21:45)
[2017-10-01] MEDS: amLODIPine BESYLATE 5 MG TABLET PO SCH (09:34)
[2017-10-01 12:00] VITALS: BP_SYST 136
[2017-10-01 16:00] VITALS: BP_SYST 139
[2017-10-01] MEDS: LORazepam 2 MG/ML VIAL IVP PRN (17:46)
[2017-10-01 19:52] VITALS: BP_SYST 157
[2017-10-01] MEDS: D5/0.45 NS 1,000 ML IV SCH (21:45)
[2017-10-02] VITALS: BP_SYST 140
[2017-10-02] MEDS: LORazepam 2 MG/ML VIAL IVP PRN ×4 (00:10→22:17)
[2017-10-02] MEDS: HYDROmorphone 2 MG/ML VIAL IVP PRN ×6 (01:44→22:28)
[2017-10-02] MEDS: PANTOPRAZOLE SODIUM 40 MG TAB PO SCH (05:45)
[2017-10-02] MEDS: hydrALAZINE HCL 25 MG TABLET PO SCH ×3 (05:46→21:09)
[2017-10-02] MEDS: METOPROLOL TARTRATE 50 MG TABLET PO SCH ×2 (08:06→21:09)
[2017-10-02] MEDS: amLODIPine BESYLATE 5 MG TABLET PO SCH (08:06)
[2017-10-02 08:10] VITALS: BP_SYST 170
[2017-10-02] MEDS: ONDANSETRON HCL 4 MG/2 ML VIAL IVP PRN ×2 (08:16→16:36)
[2017-10-02] MEDS ORDERED: HEPARIN SODIUM, PORCINE 10,000 UNITS/ 10 ML VIAL MC ONE (11:00)
[2017-10-02 12:22] VITALS: BP_SYST 183
[2017-10-02 14:52] VITALS: BP_SYST 172
[2017-10-02 17:07] VITALS: BP_SYST 186
[2017-10-02] MEDS: LABETALOL 100 MG/ 20ML VIAL IVP PRN (17:28)
[2017-10-02 19:55] VITALS: BP_SYST 185
[2017-10-02] MEDS: D5/0.45 NS 1,000 ML IV SCH (22:30)
[2017-10-03 00:50] VITALS: BP_SYST 168
[2017-10-03] MEDS: HYDROmorphone 2 MG/ML VIAL IVP PRN ×4 (02:28→14:56)
[2017-10-03 03:50] VITALS: BP_SYST 163
[2017-10-03] MEDS: ONDANSETRON HCL 4 MG/2 ML VIAL IVP PRN ×2 (03:59→14:55)
[2017-10-03] MEDS: LORazepam 2 MG/ML VIAL IVP PRN ×2 (06:17→13:13)
[2017-10-03] MEDS: PANTOPRAZOLE SODIUM 40 MG TAB PO SCH (06:17)
[2017-10-03] MEDS: hydrALAZINE HCL 25 MG TABLET PO SCH (06:17)
[2017-10-03 09:05] VITALS: BP_SYST 194
[2017-10-03] MEDS: amLODIPine BESYLATE 5 MG TABLET PO SCH (09:09)
[2017-10-03] MEDS: METOPROLOL TARTRATE 50 MG TABLET PO SCH (09:10)
[2017-10-03] MEDS ORDERED: hydrALAZINE HCL 25 MG TABLET PO ONE (10:45)
[2017-10-03 12:40] VITALS: BP_SYST 172
[2017-10-03] MEDS ORDERED: cloNIDine HCL 0.1 MG TABLET PO ONE (14:45)
[2017-10-03] MEDS ORDERED: hydrALAZINE HCL 25 MG TABLET PO SCH (21:00)
== END 2017-10-03 15:50 | disposition home or self-care (01) | DRG 73 ==
LOC: SED 08:03 → STU 09:39 → SMU 10-01 15:33
PROVIDERS: ADMIT Internal Medicine Hospice and Palliative Medicine; ATTEND Internal Medicine Hospice and Palliative Medicine
PROC: 5A1D70Z Performance of Urinary Filtration, Intermittent, Less than 6 Hours Per Day (ICD-10-PCS; principal; 2017-09-27)
PROC: 5A1D70Z Performance of Urinary Filtration, Intermittent, Less than 6 Hours Per Day (ICD-10-PCS; 2017-09-28)
PROC: 5A1D70Z Performance of Urinary Filtration, Intermittent, Less than 6 Hours Per Day (ICD-10-PCS; 2017-10-01)
DX: E11.43 Type 2 diabetes mellitus with diabetic autonomic (poly)neuropathy (principal); N18.6 End stage renal disease; I12.0 Hypertensive chronic kidney disease with stage 5 chronic kidney disease or end stage renal disease; K31.84 Gastroparesis; E87.5 Hyperkalemia; E11.22 Type 2 diabetes mellitus with diabetic chronic kidney disease; D63.1 Anemia in chronic kidney disease; E66.9 Obesity, unspecified; F41.9 Anxiety disorder, unspecified; H54.8 Legal blindness, as defined in USA; Z88.6 Allergy status to analgesic agent; Z99.2 Dependence on renal dialysis; Z68.32 Body mass index [BMI] 32.0-32.9, adult
CPT/HCPCS: 36415; 80048; 80053; 82962; 83690-TC; 84100-TC; 85025; 87081; 90935; 90937; 93005; 96372; 96374; 96375; 99291; J0360; J1170; J1200; J1630; J1644; J1815; J2060; J2405; J3010; J3490; J7030; J7042

== ENCOUNTER 2017-10-06 01:30 | Emergency (ER) | payer OTHER, MEDICAID ==
[~2017-10-06] VITALS: Ht 177.8 cm; Wt 108.9 kg
[2017-10-06 01:45] VITALS: BP_SYST 233
[2017-10-06] MEDS ORDERED: METOCLOPRAMIDE HCL 10 MG/2 ML VIAL IVP ONE (01:45)
[2017-10-06] MEDS ORDERED: MORPHINE 4 MG/ML INJ. SYRINGE IVP ONE ×2 (01:45→02:00)
[2017-10-06] MEDS ORDERED: DIPHENHYDRAMINE INJ 50 MG/ML VIAL IVP ONE (01:45)
[2017-10-06] MEDS ORDERED: fentaNYL CITRATE/PF 100 MCG/2 ML AMP IVP ONE (02:00)
[2017-10-06] MEDS ORDERED: LORazepam 2 MG/ML VIAL (FOR ER USE) IVP ONE (02:15)
[2017-10-06 02:18] LABS: CALCIUM 8.6 mg/dL (8.4-11.0); POTASSIUM 5.6 mmol/L (3.5-5.1)
[2017-10-06 02:20] LABS: BASOPHILS # (AUTO) 0.1 K/uL (0.0-0.2); BASOPHILS % (AUTO) 1.1 % (0.0-2.0); EOSINOPHILS # (AUTO) 0.1 K/uL (0.0-0.4); HEMOGLOBIN 10.4 g/dL (14.0-18.0); LYMPHOCYTES # (AUTO) 2.2 K/uL (1.0-5.5); LYMPHOCYTES % (AUTO) 21.5 % (20.5-51.5); MEAN CORPUSCULAR HEMOGLOBIN 33 pg (27-31); MEAN CORPUSCULAR HGB CONC 34 % (32-36); MEAN CORPUSCULAR VOLUME 97 fL (79.0-98.0); MONOCYTES # (AUTO) 0.8 K/uL (0.0-1.0); MONOCYTES % (AUTO) 7.8 % (1.7-9.3); NEUTROPHILS # (AUTO) 7.2 K/uL (1.8-7.7); NEUTROPHILS % (AUTO) 68.6 % (40.0-70.0); PLATELET COUNT (AUTO) 240 K/uL (130-430); RED BLOOD CELL COUNT(AUTO) 3.19 MIL/uL (4.2-6.2); RED CELL DISTRIBUTION WIDTH 14.3 % (9.0-15.0); WHITE BLOOD COUNT (AUTO) 10.4 K/uL (4.8-10.8)
[2017-10-06 02:24] LABS: ALBUMIN 3.6 g/dL (3.4-4.8); TOTAL BILIRUBIN 0.4 mg/dL (0.0-1.0)
[2017-10-06 02:42] LABS: CREATININE 9.45 mg/dL (0.55-1.30)
[2017-10-06] MEDS ORDERED: LACTULOSE 20 GM/30 ML UDC PO ONE (03:00)
[2017-10-06] MEDS ORDERED: DEXTROSE 50% JECT 50 ML DISP.SYRIN IVP ONE (03:00)
[2017-10-06] MEDS ORDERED: INSULIN REGULAR, HUMAN 10 UNITS/0.1 ML INJ IVP ONE (03:00)
[2017-10-06] MEDS ORDERED: SODIUM POLYSTYRENE SULFONATE 15 GM/60 ML UDBTL PO ONE (03:15)
[2017-10-06 04:24] VITALS: BP_SYST 186
== END 2017-10-06 04:24 | disposition home or self-care (01) ==
LOC: SED 01:30
DX: G89.29 Other chronic pain (principal); R10.84 Generalized abdominal pain; F41.9 Anxiety disorder, unspecified; E87.5 Hyperkalemia; E11.43 Type 2 diabetes mellitus with diabetic autonomic (poly)neuropathy; K31.84 Gastroparesis; I12.0 Hypertensive chronic kidney disease with stage 5 chronic kidney disease or end stage renal disease; N18.6 End stage renal disease; E11.22 Type 2 diabetes mellitus with diabetic chronic kidney disease; Z88.6 Allergy status to analgesic agent; Z79.899 Other long term (current) drug therapy; Z99.2 Dependence on renal dialysis
CPT/HCPCS: 36415; 80053; 83690; 85025; 96374; 96375; 96376; 99284; J1200; J2060; J2270; J2765; J1815

== ENCOUNTER 2017-10-08 14:55 | Inpatient (IN) | payer OTHER, MEDICAID ==
[~2017-10-08] VITALS: Ht 177.8 cm; Wt 113.9 kg
[2017-10-08 15:02] VITALS: BP_SYST 195
--- NOTE | 2017-10-08 15:10 | NUR ---
Patient triaged and placed in waiting room. VSS and patient appears in no acute distress at this time. Accompanied by mother, awaiting available bed, and MD notified of need for MSE.
[2017-10-08] MEDS ORDERED: NACL 0.9% 1,000 ML IV ONE (15:54)
[2017-10-08] MEDS ORDERED: ONDANSETRON HCL 4 MG/2 ML VIAL IVP ONE (16:00)
[2017-10-08] MEDS ORDERED: fentaNYL CITRATE/PF 100 MCG/2 ML AMP IVP ONE (16:00)
[2017-10-08 16:22] LABS: BASOPHILS # (AUTO) 0.1 K/uL (0.0-0.2); BASOPHILS % (AUTO) 0.9 % (0.0-2.0); EOSINOPHILS # (AUTO) 0.2 K/uL (0.0-0.4); EOSINOPHILS % (AUTO) 1.2 % (0.0-4.0); HEMATOCRIT 30.7 % (36-54); HEMOGLOBIN 10.4 g/dL (14.0-18.0); LYMPHOCYTES # (AUTO) 2.3 K/uL (1.0-5.5); LYMPHOCYTES % (AUTO) 17.8 % (20.5-51.5); MEAN CORPUSCULAR HEMOGLOBIN 33 pg (27-31); MEAN CORPUSCULAR HGB CONC 34 % (32-36); MEAN CORPUSCULAR VOLUME 96 fL (79.0-98.0); MONOCYTES # (AUTO) 0.7 K/uL (0.0-1.0); MONOCYTES % (AUTO) 5.8 % (1.7-9.3); NEUTROPHILS # (AUTO) 9.5 K/uL (1.8-7.7); NEUTROPHILS % (AUTO) 74.3 % (40.0-70.0); PLATELET COUNT (AUTO) 295 K/uL (130-430); RED BLOOD CELL COUNT(AUTO) 3.19 MIL/uL (4.2-6.2); RED CELL DISTRIBUTION WIDTH 14.6 % (9.0-15.0); WHITE BLOOD COUNT (AUTO) 12.8 K/uL (4.8-10.8)
--- NOTE | 2017-10-08 16:58 | NUR ---
Patient to ER bed 05 to gown for evaluation. Side rails up.
[2017-10-08 17:02] LABS: CALCIUM 8.4 mg/dL (8.4-11.0)
[2017-10-08 17:07] LABS: ALBUMIN 3.5 g/dL (3.4-4.8); TOTAL BILIRUBIN 0.3 mg/dL (0.0-1.0)
--- NOTE | 2017-10-08 17:10 | NUR ---
Pt AAOx4 presents to ED c/o 10/10 abdominal pain upon waking this morning. Pt took a dose of norco with no relief. Hx of DM; dialysis MWF. Pt had dialysis on monday. No other injuries/complaints per pt/noted. Will continue to monitor.
[2017-10-08 17:12] LABS: POTASSIUM 6.2 mmol/L (3.5-5.1)
--- NOTE | 2017-10-08 17:12 | NUR ---
ER at bedside examining patient.
[2017-10-08 17:13] LABS: CREATININE 9.57 mg/dL (0.55-1.30)
[2017-10-08] MEDS ORDERED: KETOROLAC TROMETHAMINE 30 MG VIAL IVP ONE (17:15)
[2017-10-08] MEDS ORDERED: MORPHINE 4 MG/ML INJ. SYRINGE IVP ONE (17:30)
--- NOTE | 2017-10-08 17:39 | NUR ---
Medication administered. Pt tolerated well. No adverse reactions noted.
--- NOTE | 2017-10-08 17:40 | NUR ---
BP 230/134. Dr. Cordero notified. Orders to be received.
[2017-10-08] MEDS ORDERED: LABETALOL 100 MG/ 20ML VIAL IVP ONE ×2 (17:45→18:45)
--- NOTE | 2017-10-08 18:30 | NUR ---
BP 206/122. Dr. Cordero notified. Orders to be received.
[2017-10-08] MEDS ORDERED: HYDROmorphone 1 MG INJ. 1 MG/ML AMPUL IVP PRN ×2 (18:45)
[2017-10-08] MEDS ORDERED: FAMOTIDINE PF 20 MG/2 ML VIAL IVP ONE (18:45)
[2017-10-08] MEDS ORDERED: hydrALAZINE HCL 20 MG/ML VIAL IVP PRN ×2 (18:45→21:15)
[2017-10-08] MEDS ORDERED: INSULIN REGULAR, HUMAN 100 UNITS/ML, 10 ML VIAL IVP ONE (19:15)
[2017-10-08] MEDS ORDERED: HYDROmorphone 1 MG INJ. 1 MG/ML AMPUL IVP ONE (19:15)
[2017-10-08] MEDS ORDERED: SODIUM POLYSTYRENE SULFONATE 15 GM/60 ML UDBTL PO ONE ×2 (19:15→23:00)
[2017-10-08] MEDS ORDERED: DEXTROSE 50% JECT 50 ML DISP.SYRIN IVP ONE (19:15)
[2017-10-08] MEDS ORDERED: INSULIN REGULAR, HUMAN 10 UNITS/0.1 ML INJ ONE (19:21)
--- NOTE | 2017-10-08 19:29 | NUR ---
Kayexalate, dilaudid, insulin administered. Pt tolerated well. No adverse reactions noted.
--- NOTE | 2017-10-08 19:39 | NUR ---
Spoke with Sanjuanita SOU[facility] to give report. BP 241/137, 40 mg Labetalol administered. Per Sanjuanita, pt must have BP under [address] to be [address] Per Dr. Cordero, dialysis will be best intervention to address high BP. PT AAOx4, sitting comfortably in bed. Mother at bedside. Will continue to monitor.
--- NOTE | 2017-10-08 19:43 | NUR ---
Patient will be admitted to [facility]. Admitted to Telemetry unit. Will go to room 133A. Summary report printed. Report will be given at bedside.
--- NOTE | 2017-10-08 19:50 | NUR ---
ADMISSION: The patient, JASBIR FUENTES, 31 y/o, M admitted by RAY MAXWELL MD, was given written information regarding hospital policies, unit procedures and contact persons. NOTICED THAT PT IS VOMITING ON THE WAY FROM ER . WILL CONTINUE THE CARE
[2017-10-08 19:58] VITALS: BP_SYST 257
[2017-10-08] MEDS ORDERED: METOCLOPRAMIDE HCL 10 MG TABLET PO PRN (20:30)
[2017-10-08] MEDS ORDERED: HYDROcodone/ACETAMIN 10-325 MG TAB PO PRN (20:30)
[2017-10-08] MEDS ORDERED: ACETAMINOPHEN 325 MG TABLET PO PRN (20:30)
[2017-10-08] MEDS ORDERED: GABAPENTIN 300 MG CAPSULE PO PRN (20:30)
[2017-10-08] MEDS ORDERED: METHOCARBAMOL 500 MG TABLET PO PRN (20:30)
[2017-10-08] MEDS ORDERED: ONDANSETRON 4 MG ODT TAB PO SCH (20:30)
[2017-10-08] MEDS: ONDANSETRON HCL 4 MG/2 ML VIAL IVP PRN (20:37)
[2017-10-08] MEDS: METOPROLOL TARTRATE 50 MG TABLET PO SCH (20:49)
[2017-10-08] MEDS: DIPHENHYDRAMINE INJ 50 MG/ML VIAL IVP PRN (20:53)
[2017-10-08] MEDS ORDERED: BRIMONIDINE TARTRATE 0.2% 5 mL EYE DROPS BOTH EYES SCH (21:00)
[2017-10-08] MEDS ORDERED: LATANOPROST 2.5 ML DROPS (XALATAN) BOTH EYES SCH (21:00)
[2017-10-08] MEDS ORDERED: TIMOLOL MALEATE 0.5% OPHTHALMIC DROPS 5 ML BOTH EYES SCH (21:00)
[2017-10-08] MEDS ORDERED: amLODIPine BESYLATE 10 MG TABLET PO SCH (21:00)
[2017-10-08] MEDS: DOXAZOSIN MESYLATE 2 MG TABLET PO SCH (21:00)
--- NOTE | 2017-10-08 21:46 | NUR ---
CONSULTATION PAGED REASON FOR CONSULTATION: RF WAS CONSULT CALLED? Y PERSON WHO WAS NOTIFIED: SHANA CONSULTING PHYSICIAN: JULIA OLMSTEAD (SPECIAL [employer]CES ENGINEER SERGEANT FOR [employer]IL[employer]) MACHINE DRILLER SPECIALTY: NEPHRO MACHINE DRILLER PHONE NUMBER: [phone] ORDERING PHYSICIAN: RAY ALFARO
[2017-10-08] MEDS: LABETALOL 100 MG/ 20ML VIAL IVP PRN (22:59)
[2017-10-08] MEDS ORDERED: METOCLOPRAMIDE HCL 10 MG/2 ML VIAL IVP ONE (23:00)
--- NOTE | 2017-10-08 23:35 | NUR ---
PAGE CALLED FOR DR. MAXWELL. SPOKE TO MARLENE, DIALED [phone].
[2017-10-09] VITALS: BP_SYST 221
[2017-10-09] MEDS: HYDROmorphone 1 MG INJ. 1 MG/ML AMPUL IVP PRN ×7 (00:23→21:28)
[2017-10-09] MEDS: ONDANSETRON HCL 4 MG/2 ML VIAL IVP PRN ×3 (00:26→09:50)
[2017-10-09] MEDS ORDERED: SODIUM POLYSTYRENE SULFONATE 15 GM/60 ML UDBTL RC ONE (00:30)
[2017-10-09] MEDS: LABETALOL 100 MG/ 20ML VIAL IVP PRN ×4 (01:21→18:57)
[2017-10-09] MEDS: DIPHENHYDRAMINE INJ 50 MG/ML VIAL IVP PRN (03:57)
[2017-10-09 04:00] VITALS: BP_SYST 242
[2017-10-09] MEDS: METOCLOPRAMIDE HCL 10 MG/2 ML VIAL IVP SCH ×5 (06:16→23:44)
--- NOTE | 2017-10-09 06:45 | NUR ---
pt.was admitted via the er-dept.pt.presented elevated b/p,nausea,pain.i have assessed the b/p q-2hrs. had ordered lopressor/norvasc:initial dose.i have administered labetolol;10mg ivp q-2hrs post assessment of the b/p;has remained elevated.pt.has presents nausea;i have administered zofran:4mg ivp x2 reglan:5mg ivp scheduled:q-6hrs.pt.presents history mrsa:+i have collected the mrsa;nares swab/sample. pt.presents history diabetes;i have assessed the blood glucose:x2;1221mg/dl initial blood glucose:154mg/dl 0600a sample; did not order sliding scale.i have weighed the pt.pt.is [facility] dialysis;pt.i have witnessed the pt.signing the consent for [facility] dialysis.;barr;nephrology consulted.pt.presents perma-cath;rt;svc.pt.had submitted to [facility] monday:10/06/17.pt.placed isolation status;mrsa;nares history.call light/teelphopne placed w/in the pt's reach.pt.presented the unit w/chemistry;k+6.2 kayexalate:60gm was ordered pt.was incapable to ingests po:profound nausea. was apprised and alternate route ordered;kayexalate;60gm per rectum.pt.refused the new route.dilaudid;1mg ivp;q-3hrs. administered q-3hrs per pt's requests.call light/telephone placed w/in the pt';s reach.
[2017-10-09 06:48] LABS: BASOPHILS # (AUTO) 0.1 K/uL (0.0-0.2); BASOPHILS % (AUTO) 0.4 % (0.0-2.0); HEMATOCRIT 31.1 % (36-54); HEMOGLOBIN 10.9 g/dL (14.0-18.0); LYMPHOCYTES # (AUTO) 1.1 K/uL (1.0-5.5); LYMPHOCYTES % (AUTO) 7.3 % (20.5-51.5); MEAN CORPUSCULAR HEMOGLOBIN 34 pg (27-31); MEAN CORPUSCULAR HGB CONC 35 % (32-36); MEAN CORPUSCULAR VOLUME 96 fL (79.0-98.0); MONOCYTES # (AUTO) 0.5 K/uL (0.0-1.0); NEUTROPHILS % (AUTO) 89.3 % (40.0-70.0); PLATELET COUNT (AUTO) 291 K/uL (130-430); RED BLOOD CELL COUNT(AUTO) 3.25 MIL/uL (4.2-6.2); RED CELL DISTRIBUTION WIDTH 14.8 % (9.0-15.0); WHITE BLOOD COUNT (AUTO) 15.7 K/uL (4.8-10.8)
[2017-10-09 06:57] LABS: CALCIUM 8.8 mg/dL (8.4-11.0)
[2017-10-09] MEDS ORDERED: INSULIN REGULAR, HUMAN 100 UNITS/ML, 10 ML VIAL IVP SCH (07:00)
[2017-10-09 07:10] LABS: CREATININE 10.63 mg/dL (0.55-1.30)
[2017-10-09] MEDS: PANTOPRAZOLE SODIUM 40 MG TAB PO SCH (07:30)
--- NOTE | 2017-10-09 07:50 | NUR ---
INITIAL NOTE RECEIVED PT IN BED, NO S/S OF DISTRESS OR SOB NOTED, PT HAS NO C/O PAIN AT THIS TIME, PT IN STABLE CONDITION, PT AAOX4, PT ON CONTACT ISOLATION, FALL AND SAFETY PRECAUTIONS IN PLACE. BED AT LOWEST POSITION, CALL LIGHT WITHIN REACH, WILL CONTINUE TO MONITOR PT FOR ANY CHANGES.
[2017-10-09 08:30] VITALS: BP_SYST 184
[2017-10-09 09:13] LABS: BILIRUBIN,URINE NEGATIVE (NEGATIVE); CLARITY/URINE CLEAR (CLEAR); COLOR,URINE YELLOW (YELLOW); GLUCOSE,URINE 1+ (NEGATIVE); KETONES,URINE NEGATIVE (NEGATIVE); LEUKOCYTE ESTERASE ,URINE NEGATIVE (NEGATIVE); NITRITE, URINE NEGATIVE (NEGATIVE); PH,URINE 7.5 (5.0-8.0); PROTEIN URINE 3+ (NEGATIVE); UROBILINOGEN,URINE 0.2 (0.2-1.0)
[2017-10-09 09:14] LABS: BLOOD, URINE TRACE (NEGATIVE)
[2017-10-09 09:33] LABS: BACTERIA,URINE RARE /HPF (None Seen); MUCUS,URINE None Seen /LPF (None Seen); WBC,URINE 0-3 /HPF (0-3)
[2017-10-09] MEDS ORDERED: cloNIDine HCL 0.2 MG TABLET PO PRN (09:45)
[2017-10-09] MEDS: PANTOPRAZOLE SODIUM 40 MG/VIAL (PROTONIX) IVP SCH (09:50)
[2017-10-09] MEDS: DOXAZOSIN MESYLATE 2 MG TABLET PO SCH ×2 (09:51→21:46)
[2017-10-09] MEDS: METOPROLOL TARTRATE 50 MG TABLET PO SCH ×2 (09:52→21:47)
[2017-10-09] MEDS: amLODIPine BESYLATE 10 MG TABLET PO SCH (09:52)
[2017-10-09] MEDS: BRIMONIDINE TARTRATE 0.2% 5 mL EYE DROPS BOTH EYES SCH ×2 (10:00→21:46)
--- NOTE | 2017-10-09 10:13 | NUR ---
ROUNDS PT IN BED, RESTING COMFORTABLY, ADMINISTERED PAIN MEDICATION PRN ORDERED, PT HAS NO S/S OF DISTRESS OR SOB NOTED, WILL CONTINUE TO MONITOR PT FOR ANY CHANGES, PT IN STABLE CONDITION.
--- NOTE | 2017-10-09 10:30 | NUR ---
MEDICATION REASSESSMENT PT NO LONGER FEELS NAUSEAS, NO VOMITING NOTED, WILL CONTINUE TO MONITOR PT FOR ANY CHANGES.
--- NOTE | 2017-10-09 12:15 | NUR ---
ROUNDS PT IN BED, RESTING COMFORTABLY, PT HAS NO C/O PAIN AT THIS TIME, PT HAS NO S/S OF DISTRESS OR SOB NOTED, WILL CONTINUE TO MONITOR PT FOR ANY CHANGES, PT IN STABLE CONDITION.
[2017-10-09 12:41] VITALS: BP_SYST 176
--- NOTE | 2017-10-09 14:50 | NUR ---
ROUNDS PT IN BED, RESTING COMFORTABLY, PT HAS NO C/O PAIN, PT TALKING TO FAMILY AT BEDSIDE, PT HAS NO S/S OF DISTRESS OR SOB NOTED, WILL CONTINUE TO MONITOR PT FOR ANY CHANGES, PT IN STABLE CONDITION.
[2017-10-09] MEDS ORDERED: HEPARIN SODIUM,PORCINE 5000 UNITS/ML VIAL IVP ONE (15:45)
[2017-10-09 16:41] VITALS: BP_SYST 165
--- NOTE | 2017-10-09 18:50 | NUR ---
CLOSING NOTE PT IN BED, NO S/S OF DISTRESS OR SOB NOTED, PT HAS NO C/O PAIN AT THIS TIME, PT IN STABLE CONDITION, PT AAOX4, PT ON CONTACT ISOLATION, FALL AND SAFETY PRECAUTIONS IN PLACE. BED AT LOWEST POSITION, CALL LIGHT WITHIN REACH, WILL ENDORSE CARE OF PT TO INCOMING NURSE.
--- NOTE | 2017-10-09 18:59 | NUR ---
BP MEDS ADMINISTERED PRN LABETALOL FOR INCREASED BP, BP 180/96, 98, 98% ROOM AIR, WILL ENDORSE MONITORING FOR INCOMING NURSE OF BP.
--- NOTE | 2017-10-09 19:52 | NUR ---
Initial PM Note Pt was received lying in bed fully awake, alert and Oriented x4. Pt is Danish Speaking and able to make his needs known. Speech is clear. Skin is warm and dry to touch. No signs or symptoms of hypoglycemia or hyperglycemia noted. Saline lock in RAC is without any signs of infiltration at the site. Right chest Hemodialysis Permacath noted with the dressing dry and intact. Fall and safety precautions are in place. Call light is with pt and bed alarm is on. Will continue to monitor pt.
[2017-10-09 20:00] VITALS: BP_SYST 165
--- NOTE | 2017-10-09 21:28 | NUR ---
Pain Medication Dilaudid 1mg was given IV for c/o 9/10 abdominal pain with relief. Pt's mother is visiting at the bedside. Fall and safety precautions are in place.
[2017-10-09] MEDS: LATANOPROST 2.5 ML DROPS (XALATAN) BOTH EYES SCH (21:47)
--- NOTE | 2017-10-09 21:51 | NUR ---
Blood Sugar Accucheck 105 and no Insulin coverage needed. Skin remains warm and dry to touch. Pt was given HS snacks of 1/2 [place] sandwich and 1 cup Apple Juice per his request and pt consumed 100%. Pt's mother is still visiting at the bedside. Fall and safety precautions are in place.
[2017-10-09] MEDS: TIMOLOL MALEATE 0.5% OPHTHALMIC DROPS 5 ML BOTH EYES SCH (21:52)
--- NOTE | 2017-10-09 23:15 | NUR ---
IV Restart Saline lock site in RAC leaking and the Angiocath was removed intact. Pressure dressing was applied to the site. New IV line was restated in right hand by Nurse Duque with Angiocath 22G. Pt tolerated IV restart well. Pt's mother is still visiting at the bedside. Fall and safety precautions are in place.
[2017-10-10 00:26] VITALS: BP_SYST 151
[2017-10-10] MEDS: HYDROmorphone 1 MG INJ. 1 MG/ML AMPUL IVP PRN ×8 (00:36→22:00)
--- NOTE | 2017-10-10 00:36 | NUR ---
Pain Medication Dilaudid 1mg was given IV per pt's request for c/o 9/10 abdominal pain with relief. Fall and safety precautions are in place. Call light is with pt and bed alarm is on.
--- NOTE | 2017-10-10 02:00 | NUR ---
Rounds Pt is sleeping comfortably in bed. Call light is with pt and bed alarm is on.
--- NOTE | 2017-10-10 04:01 | NUR ---
Pain Medication Dilaudid 1mg was given IV per pt's request for c/o 10/10 abdominal pain with relief. Fall and safety precautions are in place. Call light is with pt and bed alarm is on.
[2017-10-10] MEDS: METOCLOPRAMIDE HCL 10 MG/2 ML VIAL IVP SCH ×4 (05:38→23:44)
[2017-10-10] MEDS: PANTOPRAZOLE SODIUM 40 MG TAB PO SCH (06:32)
--- NOTE | 2017-10-10 06:40 | NUR ---
Closing Note Pt is awake and resting quietly in bed. No acute distress noted at this time. All pt's needs were attended to. No fall or injury noted this shift. Accucheck 115 this AM and no Insulin coverage needed. Skin remains warm and dry to touch. Fall and safety precautions are in place. Call light is with pt and bed alarm is on. Will endorse to day shift nurse.
[2017-10-10 06:44] LABS: BASOPHILS % (AUTO) 0.5 % (0.0-2.0); EOSINOPHILS # (AUTO) 0.1 K/uL (0.0-0.4); EOSINOPHILS % (AUTO) 1.3 % (0.0-4.0); HEMATOCRIT 28.7 % (36-54); HEMOGLOBIN 9.7 g/dL (14.0-18.0); LYMPHOCYTES # (AUTO) 2.7 K/uL (1.0-5.5); LYMPHOCYTES % (AUTO) 27.8 % (20.5-51.5); MEAN CORPUSCULAR HEMOGLOBIN 33 pg (27-31); MEAN CORPUSCULAR HGB CONC 34 % (32-36); MEAN CORPUSCULAR VOLUME 96 fL (79.0-98.0); MONOCYTES # (AUTO) 0.8 K/uL (0.0-1.0); MONOCYTES % (AUTO) 8.1 % (1.7-9.3); NEUTROPHILS # (AUTO) 6.1 K/uL (1.8-7.7); NEUTROPHILS % (AUTO) 62.3 % (40.0-70.0); PLATELET COUNT (AUTO) 268 K/uL (130-430); RED BLOOD CELL COUNT(AUTO) 2.99 MIL/uL (4.2-6.2); RED CELL DISTRIBUTION WIDTH 14.8 % (9.0-15.0); WHITE BLOOD COUNT (AUTO) 9.7 K/uL (4.8-10.8)
[2017-10-10 06:54] LABS: CALCIUM 7.8 mg/dL (8.4-11.0); POTASSIUM 4.3 mmol/L (3.5-5.1)
[2017-10-10 07:02] LABS: ALBUMIN 3.1 g/dL (3.4-4.8); PHOSPHORUS 7.7 mg/dL (2.7-4.5); TOTAL BILIRUBIN 0.4 mg/dL (0.0-1.0)
[2017-10-10 07:07] LABS: CREATININE 8.32 mg/dL (0.55-1.30)
[2017-10-10 08:02] VITALS: BP_SYST 176
--- NOTE | 2017-10-10 08:20 | NUR ---
OPENING NOTE: MORNING REPORT WAS TAKEN FROM ARCHITECTURAL INTERN NURSE. PATIENT IS ALERT AND ORIENTED X4. PATIENT WAS ASLEEP WITH NO SIGNS OF DISTRESS. PATIENT NOT COMPLAINING OF SHORTNESS OF BREATH. PATIENT ON ROOM AIR. PATIENT NOT COMPLAINING OF NAUSEA OR VOMITING. PATIENT NOT CONSTIPATED. BOWEL SOUNDS ACTIVE. BLOOD PRESSURE ELEVATED. WILL GIVE MORNING MEDICATIONS. PATIENT BLIND. ENCOURAGED PATIENT TO CALL FOR HELP WHEN WANTING TO GET OUT OF BED. BED ALARM ON AND CALL LIGHT IN REACH. WILL CONTINUE TO MONITOR.
[2017-10-10] MEDS: PANTOPRAZOLE SODIUM 40 MG/VIAL (PROTONIX) IVP SCH (09:11)
[2017-10-10] MEDS: DOXAZOSIN MESYLATE 2 MG TABLET PO SCH ×2 (09:12→20:54)
[2017-10-10] MEDS: METOPROLOL TARTRATE 50 MG TABLET PO SCH ×2 (09:12→20:53)
[2017-10-10] MEDS: BRIMONIDINE TARTRATE 0.2% 5 mL EYE DROPS BOTH EYES SCH ×2 (09:13→20:50)
[2017-10-10] MEDS: amLODIPine BESYLATE 10 MG TABLET PO SCH (09:13)
[2017-10-10] MEDS: TIMOLOL MALEATE 0.5% OPHTHALMIC DROPS 5 ML BOTH EYES SCH ×2 (09:14→20:50)
[2017-10-10] MEDS ORDERED: NIFEDIPINE 60 MG TABLET.SA (PROCARDIA XL 60 MG) PO ONE (09:45)
--- NOTE | 2017-10-10 10:10 | NUR ---
NOTE: PATIENT WAS COMPLAINING OF PAIN IN LEFT UPPER QUADRANT OF ABDOMEN. GAVE PATIENT PAIN MEDICATION. TOOK BLOOD PRESSURE AND WAS 178/96. GAVE PROCARDIA ORDERED WILL RECHECK BLOOD PRESSURE. ORIENTED PATIENT TO SIDE TABLE BECAUSE PATIENT BLIND. BED ALARM IS ON AND CALL LIGHT IS IN REACH. WILL CONTINUE TO MONITOR.
[2017-10-10 11:59] VITALS: BP_SYST 155
--- NOTE | 2017-10-10 12:02 | NUR ---
NOTE: TOOK PATIENT'S BLOOD SUGAR AND WAS 103. TOOK PATIENT'S BLOOD PRESSURE AND WAS 157/91. SO DIDNT GIVE BP PRN MEDICATION. PATIENT LAYING IN BED WITH NO SIGNS OF DISTRESS. WILL CONTINUE TO MONITOR.
--- NOTE | 2017-10-10 16:01 | NUR ---
NOTE: PATIENT WAS COMPLAINING OF PAIN. GAVE PATIENT PAIN MEDICATION. DR. MAXWELL SAW PATIENT. PATIENT MOST LIKELY GOING HOME TOMORROW. PATIENT HAS NO FURTHER REQUEST AT MOMENT. WILL CONTINUE TO MONITOR.
[2017-10-10] MEDS ORDERED: MUPIROCIN NASAL 2% OINT. NS SCH ×2 (16:15→16:24)
[2017-10-10 16:18] VITALS: BP_SYST 130
--- NOTE | 2017-10-10 19:00 | NUR ---
CLOSING NOTE: PATIENT WAS COMPLAINING OF PAIN. GAVE PATIENT PAIN MEDICATION. FAMILY WAS AT BEDSIDE. EDUCATED FAMILY THAT PATIENT IS ON CONTACT PRECAUTIONS AND POSITIVE FOR MRSA. PATIENT SAID HE WAS NEVER SWABBED FOR MRSA AND THAT IN THE PAST HE HAD IT BUT NEVER GOT ANYTHING FOR IT. ENDORSED EARLIER TO DR. MAXWELL THAT HE WAS POSITIVE. WILL ENDORSE TO DECORATIVE CUTTING MACHINE TENDER NURSE TO ASK FOR SOMETHING FOR IT. PATIENT ON ROOM AIR. PATIENT SALINE LOCKED. PATIENT ABOUT TO EAT DINNER. BED ALARM IS IN AND CALL LIGHT IS IN REACH. WILL CONTINUE TO MONITOR AND GIVE REPORT TO DECORATIVE CUTTING MACHINE TENDER NURSE.
--- NOTE | 2017-10-10 19:30 | NUR ---
INITIAL NOTES RECEIVED HANDOFF REPORT FROM OFFGOING NURSE AT THE BEDSIDE. PATIENT IS AWAKE AND ALERT, RESTING COMFORTABLY IN BED. NO SOB, NO ACUTE DISTRESS, NO COMPLAINTS OF PAIN AT THIS TIME. FAMILY IS AT THE BEDSIDE. BED IS LOCKED, IN THE LOWEST POSITION, 2X SIDE RAILS UP, BED ALARM ON. CALL LIGHT TO RIGHT HAND. ENCOURAGED PATIENT TO CALL FOR ASSISTANCE. WILL CONTINUE WITH PLAN OF CARE.
[2017-10-10 20:00] VITALS: BP_SYST 138
[2017-10-10] MEDS: LATANOPROST 2.5 ML DROPS (XALATAN) BOTH EYES SCH (20:51)
[2017-10-10] MEDS: NIFEDIPINE 30 MG TAB.ER.24 PO SCH (20:52)
[2017-10-10] MEDS: MUPIROCIN 2% TOPICAL OINTMENT 22 GM NS SCH (20:52)
--- NOTE | 2017-10-10 21:04 | NUR ---
PATIENT'S BLOOD SUGAR IS 168. NO INSULIN NOTED IN THE EMAR FOR THIS PATIENT. FRANCE LIANG MD.
--- NOTE | 2017-10-10 21:09 | NUR ---
PAGED I PAGED DR. MAXWELL @ [phone] I SPOKE WITH JUNIOR PRITCHETT
--- NOTE | 2017-10-10 21:36 | NUR ---
DR. ALISSA MAXWELL CALLED BACK @ [phone]
--- NOTE | 2017-10-10 21:45 | NUR ---
DR MAXWELL CALLED. INFORMED DR MAXWELL THAT THE PATIENT'S BLOOD SUGAR IS 168MG/DL, AND ASKED IF HE WOULD LIKE ANY INSULIN COVERAGE. ALSO INFORMED DR MAXWELL THAT PREVIOUS BLOOD SUGAR IS 103MG/DL AT 1157 AND 118MG/DL AT 1737. DR MAXWELL STATED THAT HE WOULD NOT LIKE INSULIN COVERAGE, SINCE THE PATIENT WILL BE SLEEPING THROUGH THE NIGHT.
--- NOTE | 2017-10-10 22:20 | NUR ---
PATIENT COMPLAINING OF SEVERE PAIN 9/10. PATIENT IS RESTING COMFORTABLY IN BED LISTENING TO THE TELEVISION BROADCAST AND CONVERSING TO MOTHER AT THE BEDSIDE, POSITIVE AFFECT. PROVIDED DILAUDID 1MG IVP PRN PER MD ORDER FOR SEVERE PAIN, SEE EMAR FOR DETAILS.
--- NOTE | 2017-10-10 23:47 | NUR ---
Administered reglan IVP as ordered.
[2017-10-11 00:50] VITALS: BP_SYST 145
[2017-10-11] MEDS: HYDROmorphone 1 MG INJ. 1 MG/ML AMPUL IVP PRN ×8 (01:09→23:37)
--- NOTE | 2017-10-11 01:41 | NUR ---
PATIENT IS RESTING COMFORTABLY IN BED WITH HIS EYES CLOSED. STATED THAT HE STILL HAS PAIN, BUT THAT IT IS BETTER AFTER RECEIVING THE DILAUDID. PAIN IS 6/10. NO SOB, NO ACUTE DISTRESS. BED IS LOCKED, IN THE LOWEST POSITION, 2X SIDE RAILS UP, BED ALARM ON. CALL LIGHT IS WITHIN REACH. ENCOURAGED PATIENT TO CALL.
--- NOTE | 2017-10-11 03:47 | NUR ---
PATIENT IS RESTING IN BED, AWAKE AND ALERT. NO SOB, NO ACUTE DISTRESS, NO COMPLAINTS OF PAIN. BED IS LOCKED, IN THE LOWEST POSITION, 2X SIDE RAILS UP, BED ALARM ON. CALL LIGHT IS WITHIN REACH. ENCOURAGED PATIENT TO CALL FOR ASSISTANCE.
[2017-10-11] MEDS: PANTOPRAZOLE SODIUM 40 MG TAB PO SCH (06:30)
[2017-10-11] MEDS: METOCLOPRAMIDE HCL 10 MG/2 ML VIAL IVP SCH ×4 (06:31→23:42)
--- NOTE | 2017-10-11 06:39 | NUR ---
PATIENT IS RESTING IN BED WITH HIS EYES CLOSED. RESPONDS TO VERBAL STIMULI. NO SOB, NO ACUTE DISTRESS AT THIS TIME. PATIENT IS COMPLAINING OF PAIN /. INFORMED THE PATIENT THAT PAIN MEDICATION IS NOT YET DUE. PATIENT VERBALIZED UNDERSTANDING AND STATED HE CAN WAIT UNTIL THE NEXT DOSE IS DUE. BED IS LOCKED, IN THE LOWEST POSITION, 2X SIDE RAILS UP, BED ALARM IS ON. CALL LIGHT IS WITHIN REACH. ENCOURAGED PATIENT TO CALL FOR ASSISTANCE.
--- NOTE | 2017-10-11 07:27 | NUR ---
DILAUDID 1MG IVP PRN / ENDORSEMENT OF CARE PATIENT IS COMPLAINING OF PAIN 10/10 IN THE LEFT UPPER ABDOMEN. NOTED WITH SOME GRUNTING, NO FACIAL GRIMACING. PROVIDED DILAUDID 1MG IVP PRN PER MD ORDER, SEE EMAR FOR DETAILS. ENDORSEMENT OF CARE GIVEN TO JORGE L-BRANNON AT THE BEDSIDE. PATIENT IS AWAKE AND ALERT, RESTING COMFORTABLY IN BED. NO SOB, NO ACUTE DISTRESS. IV SITE IS INTACT, DRESSING CLEAN AND DRY, SALINE LOCKED. BED IS LOCKED, IN THE LOWEST POSITION, 2X SIDE RAILS UP, BED ALARM IS ON. CALL LIGHT IS WITHIN REACH. FALL AND SAFETY PRECAUTIONS MAINTAINED. ALL NEEDS HAVE BEEN MET DURING THIS SHIFT.
[2017-10-11 07:41] LABS: CALCIUM 8.3 mg/dL (8.4-11.0); POTASSIUM 4.7 mmol/L (3.5-5.1)
[2017-10-11 07:47] LABS: CREATININE 10.08 mg/dL (0.55-1.30)
--- NOTE | 2017-10-11 07:50 | NUR ---
INITIAL NOTE RECEIVED PATIENT FROM ICE CREAM MAKER. PATIENT AWAKE. RECEIVED DILAUDID FOR SEVERE ABDOMINAL PAIN, CRUZITO WELL. ROOM AIR. NO ACUTE DISTRESS. NO SOB. RESPIRATION EVEN AND UNLABORED. SKIN WARM AND DRY TO TOUCH. PERMACATH FOR DIALYSIS NOTED TO RIGHT UPPER CHEST NOTED WITH CLEAN DRESSING INTACT. IV TO LEFT HAND INTACT AND PATENT, SALINE LOCKED. ALL NEEDS MET. CALL LIGHT IN REACH. CONTINUE TO MONITOR. CONT SAFETY/FALL/CONTACT PRECAUTIONS.
[2017-10-11 08:00] VITALS: BP_SYST 167
[2017-10-11] MEDS ORDERED: HEPARIN IV FLUSH 300 UNITS/3ML SYR INJ ONE ×3 (08:00→11:45)
--- NOTE | 2017-10-11 08:00 | NUR ---
PAGED , , FOR CREAT 10.08; AWAITING FOR CALL BACK.
--- NOTE | 2017-10-11 08:30 | NUR ---
PAGED , , FOR CREAT .08; AWAITING FOR CALL BACK.
--- NOTE | 2017-10-11 09:15 | NUR ---
PAGED , , FOR CREAT .08; AWAITING FOR CALL BACK.
[2017-10-11] MEDS: PANTOPRAZOLE SODIUM 40 MG/VIAL (PROTONIX) IVP SCH (09:38)
[2017-10-11] MEDS: MUPIROCIN 2% TOPICAL OINTMENT 22 GM NS SCH ×2 (09:38→20:39)
[2017-10-11] MEDS: BRIMONIDINE TARTRATE 0.2% 5 mL EYE DROPS BOTH EYES SCH ×2 (09:39→20:37)
[2017-10-11] MEDS: TIMOLOL MALEATE 0.5% OPHTHALMIC DROPS 5 ML BOTH EYES SCH ×2 (09:39→20:38)
[2017-10-11] MEDS: METOPROLOL TARTRATE 50 MG TABLET PO SCH ×2 (09:44→20:43)
[2017-10-11] MEDS: DOXAZOSIN MESYLATE 2 MG TABLET PO SCH ×2 (09:44→20:44)
[2017-10-11] MEDS: NIFEDIPINE 60 MG TABLET.SA (PROCARDIA XL 60 MG) PO SCH (09:45)
--- NOTE | 2017-10-11 09:50 | NUR ---
HD PATIENT AWAKE AND ON CELL PHONE. DIALYSIS AT BEDSIDE. VITAL SIGN STABLE. CONTINUE TO MONITOR. CALL LIGHT IN REACH.
--- NOTE | 2017-10-11 10:00 | NUR ---
PAGED , , FOR CREAT .08; AWAITING FOR CALL BACK.
--- NOTE | 2017-10-11 10:40 | NUR ---
PAIN PATIENT VITAL SIGN STABLE, C/O SEVERE PAIN TO ABDOMEN; MEDICATION ADMINISTERED ORDERED. ALL NEEDS MET. CONT TO MONITOR. CALL LIGHT IN REACH.
--- NOTE | 2017-10-11 10:45 | NUR ---
PAGED , FOR CREAT . WITH PATIENT RECEIVING DIALYSIS AT BEDSIDE; AWAITING FOR CALL BACK.
--- NOTE | 2017-10-11 11:30 | NUR ---
REPORTED TO PAGED FOR CREAT . WITH NO CALL BACK. REPORTED CREAT TO AND THAT PATIENT IS RECEIVING DIALYSIS AT BEDSIDE. NO NEW ORDERS AT THIS TIME. CONT TO MONITOR.
[2017-10-11] MEDS ORDERED: HEPARIN SODIUM, PORCINE 10,000 UNITS/ 10 ML VIAL MC ONE (11:45)
--- NOTE | 2017-10-11 12:00 | NUR ---
NOTES PATIENT AWAKE IN BED. VITAL SIGN STABLE. NO NAUSEA/VOMITING. NO ACUTE DISTRESS. ALL NEEDS MET. CONT TO MONITOR. CALL LIGHT IN REACH.
[2017-10-11 13:15] VITALS: BP_SYST 153
--- NOTE | 2017-10-11 13:50 | NUR ---
SEEN AND EXAMINED PATIENT AT BEDSIDE. ALL NEEDS MET. CONT TO MONITOR. CALL LIGHT IN REACH.
--- NOTE | 2017-10-11 14:00 | NUR ---
PAIN PATIENT C/O SEVERE PAIN TO ABDOMEN. VITAL SIGNS STABLE. NO ACUTE DISTRESS. RESPIRATION EVEN AND UNLABORED. MEDICATION ADMINISTERED ORDERED. ALL NEEDS MET. CONT TO MONITOR. CALL LIGHT IN REACH.
--- NOTE | 2017-10-11 14:00 | NUR ---
HD DIALYSIS COMPLETED WITH 3.5 LITERS REMOVED. PATIENT AWAKE IN BED. VITAL SIGN STABLE. ALL NEEDS MET. CALL LIGHT IN REACH. CONT TO MONITOR.
--- NOTE | 2017-10-11 16:00 | NUR ---
NOTES PATIENT STABLE. TALKING ON CELL PHONE. PATIENT REQUESTED APPLE JUICE. ALL NEEDS MET. CONT TO MONITOR. CALL LIGHT IN REACH.
[2017-10-11 17:05] VITALS: BP_SYST 161
--- NOTE | 2017-10-11 17:35 | NUR ---
PAIN PATIENT C/O SEVERE PAIN TO ABDOMEN. VITAL SIGNS STABLE. NO NAUSEA/VOMITING. NO ACUTE DISTRESS. RESPIRATION EVEN AND UNLABORED. MEDICATION ADMINISTERED ORDERED. ALL NEEDS MET. CONT TO MONITOR. CALL LIGHT IN REACH.
--- NOTE | 2017-10-11 19:00 | NUR ---
CLOSING NOTE PATIENT AWAKE IN BED. NO ACUTE DISTRESS. NO SOB. RESPIRATION EVEN AND UNLABORED. SKIN WARM AND DRY TO TOUCH. IV TO LEFT HAND INTACT AND PATENT WITH NO REDNESS AND NO SWELLING NOTED. CONT SAFETY/FALL PRECAUTION. ALL NEEDS MET. CALL LIGHT IN REACH. CONT TO MONITOR. WILL ENDORSE TO ONCOMING SHIFT.
--- NOTE | 2017-10-11 19:30 | NUR ---
Initial notes Received handoff report from offgoing nurse at the bedside. Patient is awake and alert, resting comfortably in bed. Family is at the bedside. No SOB, no acute distress. Patient is complaining of pain 6/10. Informed the patient that the pain medication is not yet due. Patient stated that he can wait until the next dose is due for pain medication. Bed is locked, in the lowest position, 2x side rails up, bed alarm is on. Call light is within reach. Encouraged patient to call for assistance. Will continue with plan of care.
[2017-10-11 20:30] VITALS: BP_SYST 180
[2017-10-11] MEDS: LATANOPROST 2.5 ML DROPS (XALATAN) BOTH EYES SCH (20:38)
[2017-10-11] MEDS: NIFEDIPINE 30 MG TAB.ER.24 PO SCH (20:41)
--- NOTE | 2017-10-11 20:41 | NUR ---
Medication for Hypertension and Pain Patient's blood pressure is 180/95, heart rate 80. Provided scheduled blood pressure medication. See eMAR for details. Patient is complaining of pain 9/10 in left upper abdomen. Provided dilaudid 1mg IVP prn per MD order, see eMAR for details. Patient also requested for a sandwich; however, there are no sandwiches available in both [facility] and [facility]. glazing department supervisor notified, but is unable to obtain sandwiches. Patient verbalized understanding, and stated "it's okay."
[2017-10-11 21:40] VITALS: BP_SYST 129
--- NOTE | 2017-10-11 21:40 | NUR ---
Patient is resting comfortably in bed. Family is at the bedside. No sob, no acute distress, no complaints of pain at this time. Assisted patient to clean up bedside table. Also provided patient with 2 apple juices and 2 yellow tropical flavored jellow per patient request. Call light within reach, encouraged patient to call for assistance. Addendum: 10/11/17 at 2159 by Francisca Morris RN Continuation of notes Blood pressure reassessment also performed at this time. Blood pressure is now 129/78, heart rate 83.
--- NOTE | 2017-10-11 23:37 | NUR ---
Patient is complaining of pain 9/10 in left upper abdomen. Provided Dilaudid 1mg IVP prn per MD order, see eMAR for details.
[2017-10-12] VITALS: BP_SYST 153
[2017-10-12] MEDS: HYDROmorphone 1 MG INJ. 1 MG/ML AMPUL IVP PRN ×6 (02:48→18:44)
--- NOTE | 2017-10-12 02:48 | NUR ---
Patient is complaining of pain 9/10 in the left upper abdominal area. Provided Dilaudid 1mg IVP prn per MD order, see eMAR for details. One minute after providing the Dilaudid, patient states that his pain is now 5/10. Patient is also crying in bed, states "I miss my dog, and I want to go home." Offered comfort to the patient, and also asked if the patient would like anything at this moment. Patient refused, stated that he would just like some rest. Call light placed within reach. Encouraged patient to call for assistance.
--- NOTE | 2017-10-12 03:51 | NUR ---
Patient is asleep, resting comfortably in bed. No SOB, no acute distress, no signs of pain or facial grimacing. Breathing is even and unlabored with visible chest rise and fall noted. Call light is within reach.
--- NOTE | 2017-10-12 05:15 | NUR ---
Patient is requesting for pain medication Dilaudid. Informed the patient that the pain medication is not yet due. Patient yelled "It's due in 30 minutes." Patient is upset. Educated patient that the pain medication cannot be given earlier then what the MD ordered, and asked the patient if there is anything that can be done now to make his situation better. Patient stated "nothing, I'm just having a bad day, I miss my family, I want to go home." Provided comfort as needed. Will provide pain medication at due time.
[2017-10-12] MEDS: METOCLOPRAMIDE HCL 10 MG/2 ML VIAL IVP SCH ×3 (05:54→18:12)
--- NOTE | 2017-10-12 07:20 | NUR ---
Closing Notes Handoff report given to offgoing nurse at the bedside. Patient is awake and alert, resting comfortably in bed. No sob, no acute distress, no complaints of pain. Bed is locked, in the lowest position, 2x side rails up, bed alarm on. IV site is intact, dressing clean and dry, saline locked. Call light is within reach. Fall and safety precautions maintained. All needs have been met during this shift.
[2017-10-12] MEDS: PANTOPRAZOLE SODIUM 40 MG TAB PO SCH (07:42)
[2017-10-12 07:55] LABS: BASOPHILS # (AUTO) 0.1 K/uL (0.0-0.2); BASOPHILS % (AUTO) 0.7 % (0.0-2.0); EOSINOPHILS # (AUTO) 0.1 K/uL (0.0-0.4); EOSINOPHILS % (AUTO) 0.7 % (0.0-4.0); HEMATOCRIT 29.7 % (36-54); HEMOGLOBIN 10.6 g/dL (14.0-18.0); LYMPHOCYTES # (AUTO) 2.1 K/uL (1.0-5.5); LYMPHOCYTES % (AUTO) 22.2 % (20.5-51.5); MEAN CORPUSCULAR HEMOGLOBIN 34 pg (27-31); MEAN CORPUSCULAR HGB CONC 36 % (32-36); MEAN CORPUSCULAR VOLUME 95 fL (79.0-98.0); MONOCYTES # (AUTO) 0.8 K/uL (0.0-1.0); MONOCYTES % (AUTO) 8.8 % (1.7-9.3); NEUTROPHILS # (AUTO) 6.4 K/uL (1.8-7.7); NEUTROPHILS % (AUTO) 67.6 % (40.0-70.0); PLATELET COUNT (AUTO) 247 K/uL (130-430); RED BLOOD CELL COUNT(AUTO) 3.12 MIL/uL (4.2-6.2); RED CELL DISTRIBUTION WIDTH 14.6 % (9.0-15.0); WHITE BLOOD COUNT (AUTO) 9.5 K/uL (4.8-10.8)
[2017-10-12 07:58] LABS: CALCIUM 8.7 mg/dL (8.4-11.0); CREATININE 7.21 mg/dL (0.55-1.30); POTASSIUM 4.5 mmol/L (3.5-5.1)
[2017-10-12 08:00] VITALS: BP_SYST 168
--- NOTE | 2017-10-12 08:00 | NUR ---
Note Pt resting in bed. No SOB/resp distress or severe pain/discomfort noted. IV in left hand intact and patent at this time. No needs noted. Call light within reach.
[2017-10-12] MEDS: METOPROLOL TARTRATE 50 MG TABLET PO SCH (09:05)
[2017-10-12] MEDS: PANTOPRAZOLE SODIUM 40 MG/VIAL (PROTONIX) IVP SCH (09:05)
[2017-10-12] MEDS: DOXAZOSIN MESYLATE 2 MG TABLET PO SCH (09:06)
[2017-10-12] MEDS: NIFEDIPINE 60 MG TABLET.SA (PROCARDIA XL 60 MG) PO SCH (09:06)
[2017-10-12] MEDS: TIMOLOL MALEATE 0.5% OPHTHALMIC DROPS 5 ML BOTH EYES SCH (09:10)
[2017-10-12] MEDS: MUPIROCIN 2% TOPICAL OINTMENT 22 GM NS SCH (09:11)
[2017-10-12] MEDS: BRIMONIDINE TARTRATE 0.2% 5 mL EYE DROPS BOTH EYES SCH (09:11)
--- NOTE | 2017-10-12 10:00 | NUR ---
Note New IV was inserted in left forearm as right hand IV was no longer patent at this time. Pt now resting in bed and requests that room door be closed at all times for noise level at this time. Call light within reach.
--- NOTE | 2017-10-12 13:00 | NUR ---
Note Pt's left forearm IV was "fallen out" - new IV inserted in right forearm at this time and pain IVP medication was given. Pt resting in bed at this time and no needs noted. Call light within reach.
[2017-10-12 13:02] VITALS: BP_SYST 160
[2017-10-12] MEDS: DIPHENHYDRAMINE INJ 50 MG/ML VIAL IVP PRN (15:48)
--- NOTE | 2017-10-12 16:00 | NUR ---
Note Pt has been resting most of the shift in bed. Pt's mother at bedside at this time. Pt's mother has been at bedside for the last one hour. Pt was just given pain medication IVP at this time. Pain decreasing at this time. Call light within reach.
[2017-10-12 17:29] VITALS: BP_SYST 158
[2017-10-12 17:38] VITALS: BP_SYST 160
--- NOTE | 2017-10-12 18:30 | NUR ---
Note Pt was seen and assessed by Dr Hill - questions/concerns were answered at this time. Pt's parents were in the room at this time as well. No SOB/resp distress noted. Pt's discharge instructions/prescriptions were given to pt. Questions/concerns were answered at this time as well. Pt's tele unit was dc'd and returned to respiratory support technician. Pt was checked on q1' and PRN all shift for needs and care. Pt was maintained with safety precautions all shift. Call light within reach.
--- NOTE | 2017-10-12 19:10 | NUR ---
NOTE Pt off the floor via wheelchair with all his belongings and discharge paperwork/prescriptions. No SOB/resp distress or severe abdominal pain/discomfort noted. Pt's right hand IV was dc'd - site benign - no selling/redness/bleeding/drainage or tenderness at site noted at this time. Pt stable. Pt's parents at side from room to private car.
[2017-10-12] MEDS ORDERED: NIFEDIPINE 60 MG TABLET.SA (PROCARDIA XL 60 MG) PO SCH (21:00)
[2017-10-15] MEDS ORDERED: SITA100T7 PO (12:16)
== END 2017-10-12 19:10 | disposition home or self-care (01) | DRG 73 ==
LOC: SED 14:55 → STU 18:42
PROVIDERS: ADMIT Internal Medicine; ATTEND Internal Medicine
PROC: 5A1D70Z Performance of Urinary Filtration, Intermittent, Less than 6 Hours Per Day (ICD-10-PCS; principal; 2017-10-09)
PROC: 5A1D70Z Performance of Urinary Filtration, Intermittent, Less than 6 Hours Per Day (ICD-10-PCS; 2017-10-11)
DX: E11.43 Type 2 diabetes mellitus with diabetic autonomic (poly)neuropathy (principal); N18.6 End stage renal disease; I12.0 Hypertensive chronic kidney disease with stage 5 chronic kidney disease or end stage renal disease; E87.1 Hypo-osmolality and hyponatremia; K31.84 Gastroparesis; D63.1 Anemia in chronic kidney disease; G89.4 Chronic pain syndrome; E66.9 Obesity, unspecified; E11.319 Type 2 diabetes mellitus with unspecified diabetic retinopathy without macular edema; E11.22 Type 2 diabetes mellitus with diabetic chronic kidney disease; E11.39 Type 2 diabetes mellitus with other diabetic ophthalmic complication; E87.5 Hyperkalemia; H54.8 Legal blindness, as defined in USA; Z99.2 Dependence on renal dialysis; Z88.8 Allergy status to other drugs, medicaments and biological substances; Z68.36 Body mass index [BMI] 36.0-36.9, adult; Z91.14 Patient's other noncompliance with medication regimen; Z79.899 Other long term (current) drug therapy; Z79.4 Long term (current) use of insulin; I16.0 Hypertensive urgency
CPT/HCPCS: 36415; 71045; 80048; 80053; 81000-TC; 82962; 83690-TC; 84100-TC; 85025; 87081; 90935; 93005; 96374; 96375; 96376; 99285; C9113; J1170; J1200; J1644; J1815; J2060; J2270; J2405; J2765; J3010; J3490; J7030; J8597

== ENCOUNTER 2017-10-15 07:54 | Inpatient (IN) | payer OTHER, MEDICAID ==
[2017-10-15] VITALS (9 sets, daily range): BP systolic 174–239
[~2017-10-15] VITALS: Ht 177.8 cm; Wt 120.0 kg
[~2017-10-15 07:54] MED LIST changes: -LATA2.5D6 BOTH EYES; +XALEYE BOTH EYES
[2017-10-15] MEDS ORDERED: HYDROmorphone 1 MG INJ. 1 MG/ML AMPUL IVP ONE ×2 (08:30→09:45)
[2017-10-15 08:50] LABS: BASOPHILS # (AUTO) 0.1 K/uL (0.0-0.2); BASOPHILS % (AUTO) 0.7 % (0.0-2.0); EOSINOPHILS # (AUTO) 0.2 K/uL (0.0-0.4); EOSINOPHILS % (AUTO) 0.9 % (0.0-4.0); HEMATOCRIT 29.9 % (36-54); HEMOGLOBIN 10.4 g/dL (14.0-18.0); LYMPHOCYTES # (AUTO) 2.1 K/uL (1.0-5.5); LYMPHOCYTES % (AUTO) 12.1 % (20.5-51.5); MEAN CORPUSCULAR HEMOGLOBIN 33 pg (27-31); MEAN CORPUSCULAR HGB CONC 35 % (32-36); MEAN CORPUSCULAR VOLUME 96 fL (79.0-98.0); MONOCYTES # (AUTO) 0.7 K/uL (0.0-1.0); MONOCYTES % (AUTO) 4.3 % (1.7-9.3); NEUTROPHILS # (AUTO) 14.2 K/uL (1.8-7.7); PLATELET COUNT (AUTO) 256 K/uL (130-430); RED BLOOD CELL COUNT(AUTO) 3.13 MIL/uL (4.2-6.2); WHITE BLOOD COUNT (AUTO) 17.4 K/uL (4.8-10.8)
[2017-10-15 08:55] LABS: CALCIUM 8.5 mg/dL (8.4-11.0); POTASSIUM 5.2 mmol/L (3.5-5.1)
[2017-10-15 09:02] LABS: ALBUMIN 3.8 g/dL (3.4-4.8); TOTAL BILIRUBIN 0.4 mg/dL (0.0-1.0)
[2017-10-15 09:05] LABS: CREATININE 8.38 mg/dL (0.55-1.30)
[2017-10-15] MEDS ORDERED: hydrALAZINE HCL 20 MG/ML VIAL IVP ONE (09:15)
[2017-10-15] MEDS ORDERED: HYDROmorphone 1 MG INJ. 1 MG/ML AMPUL ONE (09:47)
[2017-10-15] MEDS ORDERED: LABETALOL 100 MG/ 20ML VIAL ONE (10:03)
[2017-10-15] MEDS: ONDANSETRON HCL 4 MG/2 ML VIAL IVP PRN ×3 (12:01→23:55)
[2017-10-15] MEDS: HYDROmorphone 1 MG INJ. 1 MG/ML AMPUL IVP PRN ×5 (12:01→23:55)
[2017-10-15] MEDS ORDERED: SITA100T11 PO (12:16)
[2017-10-15] MEDS ORDERED: NIFEDIPINE 90 MG TABLET.SA (PROCARDIA XL 90 MG) PO ONE (13:45)
[2017-10-15] MEDS ORDERED: METHOCARBAMOL 500 MG TABLET PO PRN (13:45)
[2017-10-15] MEDS ORDERED: ONDANSETRON 4 MG ODT TAB PO PRN (13:45)
[2017-10-15] MEDS ORDERED: GABAPENTIN 300 MG CAPSULE PO PRN (13:45)
[2017-10-15] MEDS ORDERED: DEXTROSE 50% JECT 50 ML DISP.SYRIN IVP PRN (14:00)
[2017-10-15] MEDS: LABETALOL 100 MG/ 20ML VIAL IVP PRN (15:15)
[2017-10-15] MEDS: cloNIDine HCL 0.2 MG TABLET PO PRN ×2 (15:55→21:59)
[2017-10-15] MEDS: INSULIN REGULAR, HUMAN 100 UNITS/ML, 10 ML VIAL (novoLIN R) SUBCUT PRN (20:53)
[2017-10-15] MEDS: DOXAZOSIN MESYLATE 2 MG TABLET PO SCH (20:55)
[2017-10-15] MEDS: METOPROLOL TARTRATE 50 MG TABLET PO SCH (20:56)
[2017-10-15] MEDS: BRIMONIDINE TARTRATE 0.2% 5 mL EYE DROPS BOTH EYES SCH (20:56)
[2017-10-15] MEDS: TIMOLOL MALEATE 0.5% OPHTHALMIC DROPS 5 ML BOTH EYES SCH (20:57)
[2017-10-15] MEDS: LATANOPROST 2.5 ML DROPS (XALATAN) BOTH EYES SCH (20:57)
[2017-10-16] VITALS: BP_SYST 166
[2017-10-16] MEDS: HYDROcodone/ACETAMIN 10-325 MG TAB PO PRN (01:43)
[2017-10-16] MEDS: LABETALOL 100 MG/ 20ML VIAL IVP PRN ×2 (01:45→06:30)
[2017-10-16] MEDS: HYDROmorphone 1 MG INJ. 1 MG/ML AMPUL IVP PRN ×8 (03:02→22:30)
[2017-10-16] MEDS: cloNIDine HCL 0.2 MG TABLET PO PRN (03:47)
[2017-10-16] MEDS: INSULIN REGULAR, HUMAN 100 UNITS/ML, 10 ML VIAL (novoLIN R) SUBCUT PRN (06:28)
[2017-10-16 07:21] LABS: BASOPHILS # (AUTO) 0.1 K/uL (0.0-0.2); BASOPHILS % (AUTO) 0.5 % (0.0-2.0); EOSINOPHILS # (AUTO) 0.2 K/uL (0.0-0.4); EOSINOPHILS % (AUTO) 1.4 % (0.0-4.0); HEMATOCRIT 23.9 % (36-54); HEMOGLOBIN 8.2 g/dL (14.0-18.0); LYMPHOCYTES # (AUTO) 2.1 K/uL (1.0-5.5); LYMPHOCYTES % (AUTO) 15.1 % (20.5-51.5); MEAN CORPUSCULAR HEMOGLOBIN 33 pg (27-31); MEAN CORPUSCULAR HGB CONC 34 % (32-36); MEAN CORPUSCULAR VOLUME 96 fL (79.0-98.0); MONOCYTES # (AUTO) 0.9 K/uL (0.0-1.0); MONOCYTES % (AUTO) 6.3 % (1.7-9.3); NEUTROPHILS # (AUTO) 10.5 K/uL (1.8-7.7); NEUTROPHILS % (AUTO) 76.7 % (40.0-70.0); PLATELET COUNT (AUTO) 188 K/uL (130-430); RED CELL DISTRIBUTION WIDTH 13.8 % (9.0-15.0); WHITE BLOOD COUNT (AUTO) 13.8 K/uL (4.8-10.8)
[2017-10-16 07:35] VITALS: BP_SYST 174
[2017-10-16 07:45] LABS: CALCIUM 8.3 mg/dL (8.4-11.0); PHOSPHORUS 7.8 mg/dL (2.7-4.5); POTASSIUM 5.5 mmol/L (3.5-5.1)
[2017-10-16 07:50] LABS: CREATININE 9.83 mg/dL (0.55-1.30)
[2017-10-16] MEDS ORDERED: NIFEDIPINE 90 MG TABLET.SA (PROCARDIA XL 90 MG) PO SCH (09:00)
[2017-10-16] MEDS: PANTOPRAZOLE SODIUM 40 MG TAB PO SCH (09:41)
[2017-10-16] MEDS: METOPROLOL TARTRATE 50 MG TABLET PO SCH (09:41)
[2017-10-16] MEDS: BRIMONIDINE TARTRATE 0.2% 5 mL EYE DROPS BOTH EYES SCH ×2 (09:43→20:53)
[2017-10-16] MEDS: TIMOLOL MALEATE 0.5% OPHTHALMIC DROPS 5 ML BOTH EYES SCH ×2 (09:43→20:54)
[2017-10-16 11:11] VITALS: BP_SYST 173
[2017-10-16] MEDS: ONDANSETRON HCL 4 MG/2 ML VIAL IVP PRN (12:35)
[2017-10-16] MEDS ORDERED: BISACODYL 5 MG TABLET.DR (DULCOLAX) PO ONE (14:30)
[2017-10-16] MEDS ORDERED: DOCUSATE SODIUM 250 MG CAPSULE PO ONE (15:00)
[2017-10-16 15:13] VITALS: BP_SYST 153
[2017-10-16] MEDS ORDERED: HEPARIN SODIUM, PORCINE 10,000 UNITS/ 10 ML VIAL MC ONE (15:30)
[2017-10-16 20:00] VITALS: BP_SYST 131
[2017-10-16] MEDS: CARVEDILOL 25 MG TABLET (COREG) PO SCH (20:54)
[2017-10-16] MEDS: DOCUSATE SODIUM 250 MG CAPSULE PO SCH (20:55)
[2017-10-16] MEDS: DOXAZOSIN MESYLATE 2 MG TABLET PO SCH (20:56)
[2017-10-16] MEDS: LATANOPROST 2.5 ML DROPS (XALATAN) BOTH EYES SCH (21:00)
[2017-10-17] VITALS (7 sets, daily range): BP systolic 149–174
[2017-10-17] MEDS: HYDROmorphone 1 MG INJ. 1 MG/ML AMPUL IVP PRN ×8 (01:35→23:29)
[2017-10-17 07:09] LABS: CALCIUM 7.8 mg/dL (8.4-11.0); CREATININE 7.15 mg/dL (0.55-1.30); POTASSIUM 4.7 mmol/L (3.5-5.1)
[2017-10-17 07:15] LABS: BASOPHILS # (AUTO) 0.1 K/uL (0.0-0.2); BASOPHILS % (AUTO) 0.6 % (0.0-2.0); EOSINOPHILS # (AUTO) 0.2 K/uL (0.0-0.4); EOSINOPHILS % (AUTO) 1.6 % (0.0-4.0); HEMOGLOBIN 7.9 g/dL (14.0-18.0); LYMPHOCYTES # (AUTO) 1.8 K/uL (1.0-5.5); LYMPHOCYTES % (AUTO) 14.3 % (20.5-51.5); MEAN CORPUSCULAR HEMOGLOBIN 33 pg (27-31); MEAN CORPUSCULAR HGB CONC 34 % (32-36); MEAN CORPUSCULAR VOLUME 96 fL (79.0-98.0); MONOCYTES # (AUTO) 0.9 K/uL (0.0-1.0); MONOCYTES % (AUTO) 7.6 % (1.7-9.3); NEUTROPHILS # (AUTO) 9.4 K/uL (1.8-7.7); NEUTROPHILS % (AUTO) 75.9 % (40.0-70.0); PLATELET COUNT (AUTO) 192 K/uL (130-430); RED BLOOD CELL COUNT(AUTO) 2.39 MIL/uL (4.2-6.2); RED CELL DISTRIBUTION WIDTH 13.8 % (9.0-15.0); WHITE BLOOD COUNT (AUTO) 12.4 K/uL (4.8-10.8)
[2017-10-17 07:17] LABS: PHOSPHORUS 6.4 mg/dL (2.7-4.5)
[2017-10-17] MEDS: PANTOPRAZOLE SODIUM 40 MG TAB PO SCH (09:12)
[2017-10-17] MEDS: DOCUSATE SODIUM 250 MG CAPSULE PO SCH ×2 (09:12→21:56)
[2017-10-17] MEDS: CARVEDILOL 25 MG TABLET (COREG) PO SCH ×2 (09:12→21:57)
[2017-10-17] MEDS: TIMOLOL MALEATE 0.5% OPHTHALMIC DROPS 5 ML BOTH EYES SCH ×2 (09:13→22:00)
[2017-10-17] MEDS: BRIMONIDINE TARTRATE 0.2% 5 mL EYE DROPS BOTH EYES SCH ×2 (09:13→21:56)
[2017-10-17] MEDS: amLODIPine BESYLATE 10 MG TABLET PO SCH (09:13)
[2017-10-17] MEDS: ONDANSETRON HCL 4 MG/2 ML VIAL IVP PRN ×3 (09:22→23:35)
[2017-10-17] MEDS ORDERED: NYSTATIN 500,000 UNITS/5 ML UDC PO ONE (13:30)
[2017-10-17 14:13] LABS: BASOPHILS # (AUTO) 0.1 K/uL (0.0-0.2); BASOPHILS % (AUTO) 0.5 % (0.0-2.0); EOSINOPHILS # (AUTO) 0.2 K/uL (0.0-0.4); HEMATOCRIT 23.9 % (36-54); HEMOGLOBIN 8.1 g/dL (14.0-18.0); LYMPHOCYTES # (AUTO) 1.7 K/uL (1.0-5.5); LYMPHOCYTES % (AUTO) 14.8 % (20.5-51.5); MEAN CORPUSCULAR HEMOGLOBIN 32 pg (27-31); MEAN CORPUSCULAR HGB CONC 34 % (32-36); MEAN CORPUSCULAR VOLUME 95 fL (79.0-98.0); MONOCYTES # (AUTO) 0.9 K/uL (0.0-1.0); MONOCYTES % (AUTO) 7.6 % (1.7-9.3); NEUTROPHILS # (AUTO) 8.7 K/uL (1.8-7.7); NEUTROPHILS % (AUTO) 75.1 % (40.0-70.0); PLATELET COUNT (AUTO) 207 K/uL (130-430); RED BLOOD CELL COUNT(AUTO) 2.51 MIL/uL (4.2-6.2); RED CELL DISTRIBUTION WIDTH 13.6 % (9.0-15.0); WHITE BLOOD COUNT (AUTO) 11.6 K/uL (4.8-10.8)
[2017-10-17 16:07] LABS: TOTAL IRON BIND. CAPACITY 120 ug/dL (250-450)
[2017-10-17] MEDS: NYSTATIN 500,000 UNITS/5 ML UDC PO SCH ×2 (17:07→23:32)
[2017-10-17] MEDS: METOCLOPRAMIDE HCL 10 MG TABLET PO PRN (18:20)
[2017-10-17] MEDS: HYDROcodone/ACETAMIN 10-325 MG TAB PO PRN (18:20)
[2017-10-17] MEDS ORDERED: HYDROcodone/ACETAMIN 10-325 MG TAB PO PRN (18:45)
[2017-10-17] MEDS ORDERED: NITROGLYCERIN 0.4 MG TAB.SUBL SL PRN ×2 (19:45→20:15)
[2017-10-17] MEDS ORDERED: ASPIRIN 81 MG TABLET(ECOTRIN) PO ONE (20:15)
[2017-10-17] MEDS: LATANOPROST 2.5 ML DROPS (XALATAN) BOTH EYES SCH (21:51)
[2017-10-17] MEDS: MUPIROCIN 2% TOPICAL OINTMENT 22 GM NS SCH (21:52)
[2017-10-17] MEDS: PANTOPRAZOLE SODIUM 40 MG/VIAL (PROTONIX) IVP SCH (21:53)
[2017-10-17] MEDS: DOXAZOSIN MESYLATE 2 MG TABLET PO SCH (21:57)
[2017-10-18] VITALS (7 sets, daily range): BP systolic 149–207
[2017-10-18] MEDS: HYDROmorphone 1 MG INJ. 1 MG/ML AMPUL IVP PRN ×8 (02:36→23:43)
[2017-10-18] MEDS: ONDANSETRON HCL 4 MG/2 ML VIAL IVP PRN ×2 (05:28→14:44)
[2017-10-18] MEDS: NYSTATIN 500,000 UNITS/5 ML UDC PO SCH ×4 (05:35→23:44)
[2017-10-18 07:10] LABS: BASOPHILS # (AUTO) 0.1 K/uL (0.0-0.2); BASOPHILS % (AUTO) 0.6 % (0.0-2.0); EOSINOPHILS # (AUTO) 0.1 K/uL (0.0-0.4); EOSINOPHILS % (AUTO) 1.2 % (0.0-4.0); HEMATOCRIT 22.5 % (36-54); HEMOGLOBIN 7.7 g/dL (14.0-18.0); LYMPHOCYTES # (AUTO) 1.6 K/uL (1.0-5.5); LYMPHOCYTES % (AUTO) 13.5 % (20.5-51.5); MEAN CORPUSCULAR HEMOGLOBIN 33 pg (27-31); MEAN CORPUSCULAR HGB CONC 34 % (32-36); MEAN CORPUSCULAR VOLUME 96 fL (79.0-98.0); MONOCYTES # (AUTO) 0.9 K/uL (0.0-1.0); MONOCYTES % (AUTO) 7.5 % (1.7-9.3); NEUTROPHILS % (AUTO) 77.2 % (40.0-70.0); PLATELET COUNT (AUTO) 193 K/uL (130-430); RED BLOOD CELL COUNT(AUTO) 2.35 MIL/uL (4.2-6.2); RED CELL DISTRIBUTION WIDTH 13.8 % (9.0-15.0); WHITE BLOOD COUNT (AUTO) 11.7 K/uL (4.8-10.8)
[2017-10-18] MEDS: PANTOPRAZOLE SODIUM 40 MG/VIAL (PROTONIX) IVP SCH ×2 (08:41→22:34)
[2017-10-18] MEDS: DOCUSATE SODIUM 250 MG CAPSULE PO SCH ×2 (08:41→22:39)
[2017-10-18] MEDS: ASPIRIN 81 MG TABLET(ECOTRIN) PO SCH (08:42)
[2017-10-18] MEDS: BRIMONIDINE TARTRATE 0.2% 5 mL EYE DROPS BOTH EYES SCH ×2 (08:42→22:34)
[2017-10-18] MEDS: MUPIROCIN 2% TOPICAL OINTMENT 22 GM NS SCH ×2 (08:43→22:35)
[2017-10-18] MEDS: TIMOLOL MALEATE 0.5% OPHTHALMIC DROPS 5 ML BOTH EYES SCH ×2 (08:43→22:34)
[2017-10-18] MEDS: CARVEDILOL 25 MG TABLET (COREG) PO SCH ×2 (08:50→22:39)
[2017-10-18] MEDS: amLODIPine BESYLATE 10 MG TABLET PO SCH ×2 (08:50→16:30)
[2017-10-18 09:07] LABS: HEPATITIS A AB, IgM Negative (Negative); HEPATITIS B CORE AB, IgM Negative (Negative); HEPATITIS B SURFACE AG Negative (Negative)
[2017-10-18] MEDS ORDERED: HEPARIN SODIUM,PORCINE 5000 UNITS/ML VIAL ONE (11:25)
[2017-10-18] MEDS: LABETALOL 100 MG/ 20ML VIAL IVP PRN ×2 (14:30→22:40)
[2017-10-18] MEDS: METOCLOPRAMIDE HCL 10 MG TABLET PO PRN (16:29)
[2017-10-18] MEDS: cloNIDine HCL 0.2 MG TABLET PO PRN (16:30)
[2017-10-18] MEDS ORDERED: EPOETIN ALFA 10,000 UNITS/ML VIAL SUBCUT ONE (18:45)
[2017-10-18] MEDS: LATANOPROST 2.5 ML DROPS (XALATAN) BOTH EYES SCH (22:33)
[2017-10-18] MEDS: DOXAZOSIN MESYLATE 2 MG TABLET PO SCH (22:38)
[2017-10-19] VITALS (7 sets, daily range): BP systolic 129–184
[2017-10-19] MEDS: HYDROmorphone 1 MG INJ. 1 MG/ML AMPUL IVP PRN ×7 (02:48→21:09)
[2017-10-19] MEDS: cloNIDine HCL 0.2 MG TABLET PO PRN (02:49)
[2017-10-19] MEDS: LABETALOL 100 MG/ 20ML VIAL IVP PRN ×3 (05:45→23:24)
[2017-10-19] MEDS: NYSTATIN 500,000 UNITS/5 ML UDC PO SCH ×4 (05:54→23:25)
[2017-10-19 07:01] LABS: BASOPHILS # (AUTO) 0.1 K/uL (0.0-0.2); BASOPHILS % (AUTO) 0.6 % (0.0-2.0); EOSINOPHILS # (AUTO) 0.1 K/uL (0.0-0.4); EOSINOPHILS % (AUTO) 0.9 % (0.0-4.0); HEMATOCRIT 24.7 % (36-54); HEMOGLOBIN 8.5 g/dL (14.0-18.0); LYMPHOCYTES # (AUTO) 1.6 K/uL (1.0-5.5); LYMPHOCYTES % (AUTO) 14.9 % (20.5-51.5); MEAN CORPUSCULAR HEMOGLOBIN 33 pg (27-31); MEAN CORPUSCULAR HGB CONC 34 % (32-36); MEAN CORPUSCULAR VOLUME 96 fL (79.0-98.0); MONOCYTES # (AUTO) 0.9 K/uL (0.0-1.0); MONOCYTES % (AUTO) 7.9 % (1.7-9.3); NEUTROPHILS # (AUTO) 8.3 K/uL (1.8-7.7); NEUTROPHILS % (AUTO) 75.7 % (40.0-70.0); PLATELET COUNT (AUTO) 215 K/uL (130-430); RED BLOOD CELL COUNT(AUTO) 2.59 MIL/uL (4.2-6.2); RED CELL DISTRIBUTION WIDTH 13.6 % (9.0-15.0)
[2017-10-19 07:46] LABS: CALCIUM 8.3 mg/dL (8.4-11.0); CREATININE 6.98 mg/dL (0.55-1.30); POTASSIUM 4.4 mmol/L (3.5-5.1)
[2017-10-19] MEDS: TIMOLOL MALEATE 0.5% OPHTHALMIC DROPS 5 ML BOTH EYES SCH ×2 (08:49→21:17)
[2017-10-19] MEDS: MUPIROCIN 2% TOPICAL OINTMENT 22 GM NS SCH ×2 (08:49→21:16)
[2017-10-19] MEDS: DOCUSATE SODIUM 250 MG CAPSULE PO SCH ×2 (08:54→21:06)
[2017-10-19] MEDS: PANTOPRAZOLE SODIUM 40 MG/VIAL (PROTONIX) IVP SCH ×2 (08:54→21:09)
[2017-10-19] MEDS: CARVEDILOL 25 MG TABLET (COREG) PO SCH ×2 (08:55→21:07)
[2017-10-19] MEDS: ASPIRIN 81 MG TABLET(ECOTRIN) PO SCH (08:55)
[2017-10-19] MEDS: amLODIPine BESYLATE 10 MG TABLET PO SCH (08:55)
[2017-10-19] MEDS: BRIMONIDINE TARTRATE 0.2% 5 mL EYE DROPS BOTH EYES SCH ×2 (08:56→21:17)
[2017-10-19] MEDS: ONDANSETRON HCL 4 MG/2 ML VIAL IVP PRN ×3 (09:08→21:09)
[2017-10-19] MEDS ORDERED: hydrALAZINE HCL 25 MG TABLET PO ONE (10:30)
[2017-10-19] MEDS ORDERED: MINERAL OIL 30 ML UDC PO PRN (12:00)
[2017-10-19] MEDS ORDERED: LACTULOSE 20 GM/30 ML UDC PO PRN (12:00)
[2017-10-19] MEDS: hydrALAZINE HCL 25 MG TABLET PO SCH (21:06)
[2017-10-19] MEDS: DOXAZOSIN MESYLATE 2 MG TABLET PO SCH (21:07)
[2017-10-19] MEDS: LATANOPROST 2.5 ML DROPS (XALATAN) BOTH EYES SCH (21:17)
[2017-10-20] MEDS: HYDROmorphone 1 MG INJ. 1 MG/ML AMPUL IVP PRN ×8 (00:04→21:34)
[2017-10-20] MEDS: cloNIDine HCL 0.2 MG TABLET PO PRN ×2 (00:08→12:19)
[2017-10-20 00:32] VITALS: BP_SYST 188
[2017-10-20 01:05] VITALS: BP_SYST 183
[2017-10-20] MEDS: ONDANSETRON HCL 4 MG/2 ML VIAL IVP PRN ×2 (03:05→09:13)
[2017-10-20] MEDS: LABETALOL 100 MG/ 20ML VIAL IVP PRN (04:47)
[2017-10-20] MEDS: NYSTATIN 500,000 UNITS/5 ML UDC PO SCH ×3 (06:00→17:10)
[2017-10-20 06:21] VITALS: BP_SYST 175
[2017-10-20 06:35] LABS: CALCIUM 8.6 mg/dL (8.4-11.0)
[2017-10-20 07:01] LABS: CREATININE 8.35 mg/dL (0.55-1.30)
[2017-10-20] MEDS: ASPIRIN 81 MG TABLET(ECOTRIN) PO SCH (09:19)
[2017-10-20] MEDS: PANTOPRAZOLE SODIUM 40 MG/VIAL (PROTONIX) IVP SCH ×2 (09:19→21:00)
[2017-10-20] MEDS: hydrALAZINE HCL 25 MG TABLET PO SCH ×2 (09:20→20:59)
[2017-10-20] MEDS: CARVEDILOL 25 MG TABLET (COREG) PO SCH ×2 (09:20→20:59)
[2017-10-20] MEDS: DOCUSATE SODIUM 250 MG CAPSULE PO SCH ×2 (09:21→21:00)
[2017-10-20] MEDS: amLODIPine BESYLATE 10 MG TABLET PO SCH (09:21)
[2017-10-20] MEDS: MUPIROCIN 2% TOPICAL OINTMENT 22 GM NS SCH ×2 (09:22→21:00)
[2017-10-20] MEDS: BRIMONIDINE TARTRATE 0.2% 5 mL EYE DROPS BOTH EYES SCH ×2 (09:22→21:02)
[2017-10-20] MEDS: TIMOLOL MALEATE 0.5% OPHTHALMIC DROPS 5 ML BOTH EYES SCH ×2 (09:26→21:03)
[2017-10-20] MEDS ORDERED: NIFEDIPINE 60 MG TABLET.SA (PROCARDIA XL 60 MG) PO ONE (10:15)
[2017-10-20 12:10] VITALS: BP_SYST 168
[2017-10-20] MEDS ORDERED: BISACODYL 5 MG TABLET.DR (DULCOLAX) PO ONE (15:00)
[2017-10-20 16:08] VITALS: BP_SYST 145
[2017-10-20] MEDS: LORazepam 1 MG TABLET PO PRN (17:11)
[2017-10-20] MEDS ORDERED: HEPARIN SODIUM, PORCINE 10,000 UNITS/ 10 ML VIAL MC ONE (19:00)
[2017-10-20 19:15] VITALS: BP_SYST 155
[2017-10-20] MEDS: DOXAZOSIN MESYLATE 2 MG TABLET PO SCH (20:58)
[2017-10-20] MEDS: LATANOPROST 2.5 ML DROPS (XALATAN) BOTH EYES SCH (21:04)
[2017-10-21] VITALS (8 sets, daily range): BP systolic 146–173
[2017-10-21] MEDS: HYDROmorphone 1 MG INJ. 1 MG/ML AMPUL IVP PRN ×8 (00:33→21:49)
[2017-10-21] MEDS: NYSTATIN 500,000 UNITS/5 ML UDC PO SCH ×4 (00:33→17:07)
[2017-10-21] MEDS: ONDANSETRON HCL 4 MG/2 ML VIAL IVP PRN (03:38)
[2017-10-21 07:05] LABS: BASOPHILS # (AUTO) 0.1 K/uL (0.0-0.2); BASOPHILS % (AUTO) 0.6 % (0.0-2.0); EOSINOPHILS # (AUTO) 0.2 K/uL (0.0-0.4); EOSINOPHILS % (AUTO) 1.5 % (0.0-4.0); HEMATOCRIT 23.9 % (36-54); HEMOGLOBIN 8.2 g/dL (14.0-18.0); LYMPHOCYTES # (AUTO) 1.3 K/uL (1.0-5.5); LYMPHOCYTES % (AUTO) 11.6 % (20.5-51.5); MEAN CORPUSCULAR HEMOGLOBIN 33 pg (27-31); MEAN CORPUSCULAR HGB CONC 34 % (32-36); MEAN CORPUSCULAR VOLUME 96 fL (79.0-98.0); MONOCYTES # (AUTO) 0.8 K/uL (0.0-1.0); MONOCYTES % (AUTO) 6.9 % (1.7-9.3); NEUTROPHILS # (AUTO) 8.7 K/uL (1.8-7.7); NEUTROPHILS % (AUTO) 79.4 % (40.0-70.0); PLATELET COUNT (AUTO) 243 K/uL (130-430); RED BLOOD CELL COUNT(AUTO) 2.51 MIL/uL (4.2-6.2); RED CELL DISTRIBUTION WIDTH 13.5 % (9.0-15.0); WHITE BLOOD COUNT (AUTO) 11.1 K/uL (4.8-10.8)
[2017-10-21 07:25] LABS: CALCIUM 8.2 mg/dL (8.4-11.0); CREATININE 6.7 mg/dL (0.55-1.30); POTASSIUM 4.7 mmol/L (3.5-5.1)
[2017-10-21] MEDS: PANTOPRAZOLE SODIUM 40 MG/VIAL (PROTONIX) IVP SCH ×2 (09:26→20:42)
[2017-10-21] MEDS: TIMOLOL MALEATE 0.5% OPHTHALMIC DROPS 5 ML BOTH EYES SCH ×2 (09:26→20:46)
[2017-10-21] MEDS: DOCUSATE SODIUM 250 MG CAPSULE PO SCH ×2 (09:26→20:47)
[2017-10-21] MEDS: ASPIRIN 81 MG TABLET(ECOTRIN) PO SCH (09:27)
[2017-10-21] MEDS: NIFEDIPINE 60 MG TABLET.SA (PROCARDIA XL 60 MG) PO SCH (09:27)
[2017-10-21] MEDS: hydrALAZINE HCL 25 MG TABLET PO SCH ×2 (09:29→20:45)
[2017-10-21] MEDS: CARVEDILOL 25 MG TABLET (COREG) PO SCH ×2 (09:29→20:45)
[2017-10-21] MEDS: BRIMONIDINE TARTRATE 0.2% 5 mL EYE DROPS BOTH EYES SCH ×2 (09:33→20:46)
[2017-10-21] MEDS: MUPIROCIN 2% TOPICAL OINTMENT 22 GM NS SCH ×2 (09:34→20:46)
[2017-10-21] MEDS: LABETALOL 100 MG/ 20ML VIAL IVP PRN (11:04)
[2017-10-21] MEDS ORDERED: BISACODYL 5 MG TABLET.DR (DULCOLAX) PO PRN (15:00)
[2017-10-21] MEDS: INSULIN REGULAR, HUMAN 100 UNITS/ML, 10 ML VIAL (novoLIN R) SUBCUT PRN (20:34)
[2017-10-21] MEDS: DOXAZOSIN MESYLATE 2 MG TABLET PO SCH (20:44)
[2017-10-21] MEDS: LATANOPROST 2.5 ML DROPS (XALATAN) BOTH EYES SCH (20:46)
[2017-10-22 00:20] VITALS: BP_SYST 154
[2017-10-22] MEDS: HYDROmorphone 1 MG INJ. 1 MG/ML AMPUL IVP PRN ×8 (00:30→22:56)
[2017-10-22] MEDS: ONDANSETRON HCL 4 MG/2 ML VIAL IVP PRN ×3 (01:08→18:35)
[2017-10-22] MEDS: NYSTATIN 500,000 UNITS/5 ML UDC PO SCH ×4 (05:50→17:08)
[2017-10-22 05:57] LABS: BASOPHILS # (AUTO) 0.1 K/uL (0.0-0.2); BASOPHILS % (AUTO) 0.8 % (0.0-2.0); EOSINOPHILS # (AUTO) 0.2 K/uL (0.0-0.4); EOSINOPHILS % (AUTO) 1.7 % (0.0-4.0); HEMATOCRIT 24.3 % (36-54); HEMOGLOBIN 8.3 g/dL (14.0-18.0); LYMPHOCYTES # (AUTO) 1.5 K/uL (1.0-5.5); LYMPHOCYTES % (AUTO) 13.6 % (20.5-51.5); MEAN CORPUSCULAR HEMOGLOBIN 33 pg (27-31); MEAN CORPUSCULAR HGB CONC 34 % (32-36); MEAN CORPUSCULAR VOLUME 97 fL (79.0-98.0); MONOCYTES # (AUTO) 0.8 K/uL (0.0-1.0); MONOCYTES % (AUTO) 7.6 % (1.7-9.3); NEUTROPHILS # (AUTO) 8.5 K/uL (1.8-7.7); NEUTROPHILS % (AUTO) 76.3 % (40.0-70.0); PLATELET COUNT (AUTO) 282 K/uL (130-430); RED BLOOD CELL COUNT(AUTO) 2.51 MIL/uL (4.2-6.2); RED CELL DISTRIBUTION WIDTH 13.9 % (9.0-15.0); WHITE BLOOD COUNT (AUTO) 11.1 K/uL (4.8-10.8)
[2017-10-22 06:12] LABS: CALCIUM 8.3 mg/dL (8.4-11.0); POTASSIUM 5.5 mmol/L (3.5-5.1)
[2017-10-22] MEDS: INSULIN REGULAR, HUMAN 100 UNITS/ML, 10 ML VIAL (novoLIN R) SUBCUT PRN ×2 (06:13→20:17)
[2017-10-22] MEDS: LORazepam 1 MG TABLET PO PRN (06:23)
[2017-10-22 06:37] LABS: CREATININE 8.37 mg/dL (0.55-1.30)
[2017-10-22] MEDS: DOCUSATE SODIUM 250 MG CAPSULE PO SCH ×3 (08:14→20:20)
[2017-10-22] MEDS: BRIMONIDINE TARTRATE 0.2% 5 mL EYE DROPS BOTH EYES SCH ×2 (08:15→20:12)
[2017-10-22] MEDS: PANTOPRAZOLE SODIUM 40 MG/VIAL (PROTONIX) IVP SCH ×2 (08:15→20:09)
[2017-10-22] MEDS: MUPIROCIN 2% TOPICAL OINTMENT 22 GM NS SCH ×2 (08:15→20:24)
[2017-10-22] MEDS: NIFEDIPINE 60 MG TABLET.SA (PROCARDIA XL 60 MG) PO SCH (08:16)
[2017-10-22] MEDS: CARVEDILOL 25 MG TABLET (COREG) PO SCH ×2 (08:16→20:11)
[2017-10-22] MEDS: TIMOLOL MALEATE 0.5% OPHTHALMIC DROPS 5 ML BOTH EYES SCH ×2 (08:16→20:12)
[2017-10-22] MEDS: ASPIRIN 81 MG TABLET(ECOTRIN) PO SCH (08:17)
[2017-10-22] MEDS: hydrALAZINE HCL 25 MG TABLET PO SCH ×2 (08:17→20:10)
[2017-10-22 08:20] VITALS: BP_SYST 150
[2017-10-22 11:13] VITALS: BP_SYST 146
[2017-10-22 15:00] VITALS: BP_SYST 161
[2017-10-22 20:00] VITALS: BP_SYST 177
[2017-10-22] MEDS: DOXAZOSIN MESYLATE 2 MG TABLET PO SCH (20:10)
[2017-10-22] MEDS: LATANOPROST 2.5 ML DROPS (XALATAN) BOTH EYES SCH (20:12)
[2017-10-22] MEDS: LABETALOL 100 MG/ 20ML VIAL IVP PRN (21:27)
[2017-10-23 00:05] VITALS: BP_SYST 155
[2017-10-23] MEDS: HYDROmorphone 1 MG INJ. 1 MG/ML AMPUL IVP PRN ×7 (02:02→20:52)
[2017-10-23] MEDS: ONDANSETRON HCL 4 MG/2 ML VIAL IVP PRN (05:06)
[2017-10-23] MEDS: NYSTATIN 500,000 UNITS/5 ML UDC PO SCH ×5 (06:00→23:09)
[2017-10-23] MEDS: TIMOLOL MALEATE 0.5% OPHTHALMIC DROPS 5 ML BOTH EYES SCH ×2 (08:13→20:55)
[2017-10-23] MEDS: BRIMONIDINE TARTRATE 0.2% 5 mL EYE DROPS BOTH EYES SCH ×2 (08:13→20:53)
[2017-10-23] MEDS: PANTOPRAZOLE SODIUM 40 MG/VIAL (PROTONIX) IVP SCH ×2 (08:14→20:52)
[2017-10-23] MEDS: DOCUSATE SODIUM 250 MG CAPSULE PO SCH ×2 (08:15→20:51)
[2017-10-23] MEDS: CARVEDILOL 25 MG TABLET (COREG) PO SCH ×2 (08:19→20:51)
[2017-10-23] MEDS: NIFEDIPINE 90 MG TABLET.SA (PROCARDIA XL 90 MG) PO SCH (08:19)
[2017-10-23] MEDS: hydrALAZINE HCL 25 MG TABLET PO SCH ×2 (08:20→20:51)
[2017-10-23] MEDS: ASPIRIN 81 MG TABLET(ECOTRIN) PO SCH (08:20)
[2017-10-23] MEDS: LORazepam 1 MG TABLET PO PRN (08:27)
[2017-10-23 08:35] VITALS: BP_SYST 173
[2017-10-23] MEDS: cloNIDine HCL 0.2 MG TABLET PO PRN (09:32)
[2017-10-23 11:50] VITALS: BP_SYST 194
[2017-10-23 12:30] VITALS: BP_SYST 147
[2017-10-23] MEDS ORDERED: HEPARIN SODIUM, PORCINE 10,000 UNITS/ 10 ML VIAL MC ONE (13:15)
[2017-10-23 15:20] VITALS: BP_SYST 146
[2017-10-23 20:00] VITALS: BP_SYST 151
[2017-10-23] MEDS: INSULIN REGULAR, HUMAN 100 UNITS/ML, 10 ML VIAL (novoLIN R) SUBCUT PRN (20:49)
[2017-10-23] MEDS: DOXAZOSIN MESYLATE 2 MG TABLET PO SCH (20:50)
[2017-10-23] MEDS: LATANOPROST 2.5 ML DROPS (XALATAN) BOTH EYES SCH (20:55)
[2017-10-24] VITALS (7 sets, daily range): BP systolic 141–187
[2017-10-24] MEDS: HYDROmorphone 1 MG INJ. 1 MG/ML AMPUL IVP PRN ×8 (00:13→21:38)
[2017-10-24] MEDS: LABETALOL 100 MG/ 20ML VIAL IVP PRN ×2 (03:15→11:16)
[2017-10-24] MEDS: BRIMONIDINE TARTRATE 0.2% 5 mL EYE DROPS BOTH EYES SCH ×2 (09:19→21:09)
[2017-10-24] MEDS: ASPIRIN 81 MG TABLET(ECOTRIN) PO SCH (09:19)
[2017-10-24] MEDS: hydrALAZINE HCL 25 MG TABLET PO SCH ×2 (09:19→21:06)
[2017-10-24] MEDS: DOCUSATE SODIUM 250 MG CAPSULE PO SCH ×2 (09:20→21:00)
[2017-10-24] MEDS: NIFEDIPINE 90 MG TABLET.SA (PROCARDIA XL 90 MG) PO SCH (09:20)
[2017-10-24] MEDS: CARVEDILOL 25 MG TABLET (COREG) PO SCH ×2 (09:20→21:07)
[2017-10-24] MEDS: PANTOPRAZOLE SODIUM 40 MG/VIAL (PROTONIX) IVP SCH ×2 (09:21→21:07)
[2017-10-24] MEDS: TIMOLOL MALEATE 0.5% OPHTHALMIC DROPS 5 ML BOTH EYES SCH ×2 (09:27→21:09)
[2017-10-24] MEDS: cloNIDine HCL 0.2 MG TABLET PO PRN (12:31)
[2017-10-24] MEDS ORDERED: hydrALAZINE HCL 25 MG TABLET PO ONE (15:15)
[2017-10-24] MEDS: ALBUTEROL SULFATE 0.083% 2.5 MG/3 ML VIAL.NEB INH SCH (19:38)
[2017-10-24] MEDS: ONDANSETRON HCL 4 MG/2 ML VIAL IVP PRN (21:05)
[2017-10-24] MEDS: DOXAZOSIN MESYLATE 2 MG TABLET PO SCH (21:06)
[2017-10-24] MEDS: LATANOPROST 2.5 ML DROPS (XALATAN) BOTH EYES SCH (21:09)
[2017-10-24] MEDS: INSULIN REGULAR, HUMAN 100 UNITS/ML, 10 ML VIAL (novoLIN R) SUBCUT PRN (21:14)
[2017-10-25 00:33] VITALS: BP_SYST 141
[2017-10-25] MEDS: HYDROmorphone 1 MG INJ. 1 MG/ML AMPUL IVP PRN ×8 (01:14→23:02)
[2017-10-25] MEDS: INSULIN REGULAR, HUMAN 100 UNITS/ML, 10 ML VIAL (novoLIN R) SUBCUT PRN (06:12)
[2017-10-25 06:43] LABS: CALCIUM 8.5 mg/dL (8.4-11.0); POTASSIUM 5.5 mmol/L (3.5-5.1)
[2017-10-25 06:52] LABS: CREATININE 10.01 mg/dL (0.55-1.30)
[2017-10-25 07:05] LABS: BASOPHILS % (AUTO) 0.5 % (0.0-2.0); EOSINOPHILS # (AUTO) 0.2 K/uL (0.0-0.4); EOSINOPHILS % (AUTO) 2.4 % (0.0-4.0); HEMOGLOBIN 7.2 g/dL (14.0-18.0); LYMPHOCYTES # (AUTO) 1.9 K/uL (1.0-5.5); LYMPHOCYTES % (AUTO) 19.6 % (20.5-51.5); MEAN CORPUSCULAR HEMOGLOBIN 33 pg (27-31); MEAN CORPUSCULAR HGB CONC 34 % (32-36); MEAN CORPUSCULAR VOLUME 97 fL (79.0-98.0); MONOCYTES # (AUTO) 0.7 K/uL (0.0-1.0); MONOCYTES % (AUTO) 7.3 % (1.7-9.3); NEUTROPHILS # (AUTO) 6.7 K/uL (1.8-7.7); NEUTROPHILS % (AUTO) 70.2 % (40.0-70.0); PLATELET COUNT (AUTO) 278 K/uL (130-430); RED CELL DISTRIBUTION WIDTH 13.6 % (9.0-15.0); WHITE BLOOD COUNT (AUTO) 9.5 K/uL (4.8-10.8)
[2017-10-25 07:09] LABS: HEMATOCRIT 21.4 % (36-54)
[2017-10-25] MEDS: ALBUTEROL SULFATE 0.083% 2.5 MG/3 ML VIAL.NEB INH SCH ×3 (07:12→21:17)
[2017-10-25 08:00] VITALS: BP_SYST 148
[2017-10-25] MEDS: DOCUSATE SODIUM 250 MG CAPSULE PO SCH ×2 (08:25→20:39)
[2017-10-25] MEDS: BRIMONIDINE TARTRATE 0.2% 5 mL EYE DROPS BOTH EYES SCH ×2 (08:25→20:29)
[2017-10-25] MEDS: CARVEDILOL 25 MG TABLET (COREG) PO SCH ×2 (08:26→20:40)
[2017-10-25] MEDS: ASPIRIN 81 MG TABLET(ECOTRIN) PO SCH (08:26)
[2017-10-25] MEDS: NIFEDIPINE 90 MG TABLET.SA (PROCARDIA XL 90 MG) PO SCH (08:26)
[2017-10-25] MEDS: PANTOPRAZOLE SODIUM 40 MG/VIAL (PROTONIX) IVP SCH ×2 (08:27→20:32)
[2017-10-25] MEDS: TIMOLOL MALEATE 0.5% OPHTHALMIC DROPS 5 ML BOTH EYES SCH ×2 (08:29→20:29)
[2017-10-25] MEDS: hydrALAZINE HCL 25 MG TABLET PO SCH ×3 (08:30→20:38)
[2017-10-25] MEDS: LORazepam 1 MG TABLET PO PRN ×2 (11:18→20:39)
[2017-10-25] MEDS: ONDANSETRON HCL 4 MG/2 ML VIAL IVP PRN (11:30)
[2017-10-25 11:51] VITALS: BP_SYST 169
[2017-10-25] MEDS ORDERED: HEPARIN SODIUM, PORCINE 10,000 UNITS/ 10 ML VIAL MC ONE (13:15)
[2017-10-25 16:08] VITALS: BP_SYST 160
[2017-10-25 17:02] LABS: BASOPHILS % (AUTO) 0.4 % (0.0-2.0); EOSINOPHILS # (AUTO) 0.2 K/uL (0.0-0.4); EOSINOPHILS % (AUTO) 2.3 % (0.0-4.0); HEMATOCRIT 23.4 % (36-54); HEMOGLOBIN 7.9 g/dL (14.0-18.0); LYMPHOCYTES # (AUTO) 1.6 K/uL (1.0-5.5); MEAN CORPUSCULAR HEMOGLOBIN 33 pg (27-31); MEAN CORPUSCULAR HGB CONC 34 % (32-36); MEAN CORPUSCULAR VOLUME 96 fL (79.0-98.0); MONOCYTES # (AUTO) 0.7 K/uL (0.0-1.0); MONOCYTES % (AUTO) 7.3 % (1.7-9.3); NEUTROPHILS # (AUTO) 7.7 K/uL (1.8-7.7); PLATELET COUNT (AUTO) 312 K/uL (130-430); RED BLOOD CELL COUNT(AUTO) 2.43 MIL/uL (4.2-6.2); RED CELL DISTRIBUTION WIDTH 13.8 % (9.0-15.0); WHITE BLOOD COUNT (AUTO) 10.2 K/uL (4.8-10.8)
[2017-10-25 17:21] LABS: TOTAL IRON BIND. CAPACITY 122 ug/dL (250-450)
[2017-10-25 19:00] VITALS: BP_SYST 141
[2017-10-25 20:00] VITALS: BP_SYST 141
[2017-10-25] MEDS: LATANOPROST 2.5 ML DROPS (XALATAN) BOTH EYES SCH (20:30)
[2017-10-25] MEDS: DOXAZOSIN MESYLATE 2 MG TABLET PO SCH (20:38)
[2017-10-26 00:26] VITALS: BP_SYST 137
[2017-10-26] MEDS: HYDROmorphone 1 MG INJ. 1 MG/ML AMPUL IVP PRN ×6 (02:02→17:28)
[2017-10-26 06:53] LABS: CALCIUM 8.7 mg/dL (8.4-11.0); POTASSIUM 5.1 mmol/L (3.5-5.1)
[2017-10-26 07:07] LABS: CREATININE 8.26 mg/dL (0.55-1.30)
[2017-10-26] MEDS: ALBUTEROL SULFATE 0.083% 2.5 MG/3 ML VIAL.NEB INH SCH (07:34)
[2017-10-26 08:09] VITALS: BP_SYST 175
[2017-10-26] MEDS: NIFEDIPINE 90 MG TABLET.SA (PROCARDIA XL 90 MG) PO SCH (08:12)
[2017-10-26] MEDS: PANTOPRAZOLE SODIUM 40 MG/VIAL (PROTONIX) IVP SCH (08:12)
[2017-10-26] MEDS: ASPIRIN 81 MG TABLET(ECOTRIN) PO SCH (08:12)
[2017-10-26] MEDS: hydrALAZINE HCL 25 MG TABLET PO SCH (08:13)
[2017-10-26] MEDS: CARVEDILOL 25 MG TABLET (COREG) PO SCH (08:13)
[2017-10-26] MEDS: TIMOLOL MALEATE 0.5% OPHTHALMIC DROPS 5 ML BOTH EYES SCH (08:14)
[2017-10-26] MEDS: DOCUSATE SODIUM 250 MG CAPSULE PO SCH (08:14)
[2017-10-26] MEDS: BRIMONIDINE TARTRATE 0.2% 5 mL EYE DROPS BOTH EYES SCH (08:14)
[2017-10-26] MEDS: cloNIDine HCL 0.2 MG TABLET PO PRN (11:10)
[2017-10-26] MEDS ORDERED: cloNIDine HCL 0.2 MG TABLET PO PRN (12:00)
[2017-10-26] MEDS ORDERED: cloNIDine HCL 0.1 MG TABLET PO ONE (12:00)
[2017-10-26 12:09] VITALS: BP_SYST 171
[2017-10-26] MEDS ORDERED: hydrALAZINE HCL 25 MG TABLET PO SCH (15:00)
[2017-10-26 16:28] VITALS: BP_SYST 161
[2017-10-26 17:40] VITALS: BP_SYST 161
== END 2017-10-26 18:40 | disposition home health service (06) | DRG 73 ==
LOC: SED 07:54 → SMU 11:12 → STU 18:01 → SMU 10-20 09:34
PROVIDERS: ADMIT Internal Medicine; ATTEND Internal Medicine
PROC: 5A1D70Z Performance of Urinary Filtration, Intermittent, Less than 6 Hours Per Day (ICD-10-PCS; principal; 2017-10-16)
PROC: 5A1D70Z Performance of Urinary Filtration, Intermittent, Less than 6 Hours Per Day (ICD-10-PCS; 2017-10-18)
PROC: 30233N1 Transfusion of Nonautologous Red Blood Cells into Peripheral Vein, Percutaneous Approach (ICD-10-PCS; 2017-10-18)
PROC: 5A1D70Z Performance of Urinary Filtration, Intermittent, Less than 6 Hours Per Day (ICD-10-PCS; 2017-10-20)
PROC: 5A1D70Z Performance of Urinary Filtration, Intermittent, Less than 6 Hours Per Day (ICD-10-PCS; 2017-10-23)
PROC: 5A1D70Z Performance of Urinary Filtration, Intermittent, Less than 6 Hours Per Day (ICD-10-PCS; 2017-10-25)
DX: E10.43 Type 1 diabetes mellitus with diabetic autonomic (poly)neuropathy (principal); N18.6 End stage renal disease; J96.01 Acute respiratory failure with hypoxia; I13.2 Hypertensive heart and chronic kidney disease with heart failure and with stage 5 chronic kidney disease, or end stage renal disease; H33.20 Serous retinal detachment, unspecified eye; E10.22 Type 1 diabetes mellitus with diabetic chronic kidney disease; K31.84 Gastroparesis; D63.1 Anemia in chronic kidney disease; I50.9 Heart failure, unspecified; R07.89 Other chest pain; K59.00 Constipation, unspecified; E87.5 Hyperkalemia; E66.9 Obesity, unspecified; H40.9 Unspecified glaucoma; E10.319 Type 1 diabetes mellitus with unspecified diabetic retinopathy without macular edema; G89.29 Other chronic pain; Z79.899 Other long term (current) drug therapy; Z99.2 Dependence on renal dialysis; Z88.8 Allergy status to other drugs, medicaments and biological substances; Z91.19 Patient's noncompliance with other medical treatment and regimen; Z71.89 Other specified counseling; Z88.5 Allergy status to narcotic agent; Z68.38 Body mass index [BMI] 38.0-38.9, adult; H54.8 Legal blindness, as defined in USA
CPT/HCPCS: 36415; 71045; 80048; 80053; 80061; 80074; 82962; 83540-TC; 83550-TC; 83690-TC; 83880; 84100-TC; 84484; 85025; 86886; 86900; 86901; 86920; 87081; 90935; 90937; 93005; 94640; 94760; 96374; 96375; 99285; C9113; J0885; J1170; J1644; J1815; J2405; J3490; J7030; J7050; J7613; J8597; P9021; Q0162

== ENCOUNTER 2017-10-31 16:19 | Emergency (ER) | payer OTHER, MEDICAID ==
[~2017-10-31] VITALS: Ht 177.8 cm; Wt 108.9 kg
[~2017-10-31 16:19] MED LIST changes: +SITA100T11 PO
[2017-10-31 16:31] VITALS: BP_SYST 153
[2017-10-31] MEDS ORDERED: fentaNYL CITRATE/PF 100 MCG/2 ML AMP IVP ONE ×2 (17:00→18:30)
[2017-10-31] MEDS ORDERED: ONDANSETRON HCL 4 MG/2 ML VIAL IVP ONE (17:00)
[2017-10-31] MEDS ORDERED: KETAMINE HCL IN 0.9 % NACL 30 MG/3 ML SYRINGE IVP ONE (17:00)
[2017-10-31 17:16] LABS: CALCIUM 9.3 mg/dL (8.4-11.0); CREATININE 7.35 mg/dL (0.55-1.30); POTASSIUM 4.2 mmol/L (3.5-5.1)
[2017-10-31 17:21] LABS: ALBUMIN 3.3 g/dL (3.4-4.8); TOTAL BILIRUBIN 0.3 mg/dL (0.0-1.0)
[2017-10-31] MEDS ORDERED: PROCHLORPERAZINE EDISYLATE 10 MG/2 ML VIAL IVP ONE (18:30)
[2017-10-31 19:20] VITALS: BP_SYST 135
== END 2017-10-31 19:20 | disposition home or self-care (01) ==
LOC: SED 16:19
DX: E11.43 Type 2 diabetes mellitus with diabetic autonomic (poly)neuropathy (principal); E11.29 Type 2 diabetes mellitus with other diabetic kidney complication; K31.84 Gastroparesis; N28.9 Disorder of kidney and ureter, unspecified; I10 Essential (primary) hypertension; Z99.2 Dependence on renal dialysis; Z88.6 Allergy status to analgesic agent; Z79.899 Other long term (current) drug therapy
CPT/HCPCS: 36415; 70486; 80053; 96374; 96375; 96376; 99284; J0780; J2405; J3010

== ENCOUNTER 2017-11-22 13:53 | Emergency (ER) | payer OTHER, MEDICAID ==
[~2017-11-22] VITALS: Ht 177.8 cm; Wt 108.9 kg
[2017-11-22 14:04] VITALS: BP_SYST 158
--- NOTE | 2017-11-22 14:04 | NUR ---
Pt placed in bed 6 with father
--- NOTE | 2017-11-22 14:05 | NUR ---
# 22 gauge angiocath placed to RAC. Use of asceptic technique. Opsite placed over site. Blood return noted. Flushed with 10 cc of normal saline. No evidence of infiltration noted. Patient tolerated well.
--- NOTE | 2017-11-22 14:09 | NUR ---
ER at bedside examining patient.
--- NOTE | 2017-11-22 14:10 | NUR ---
Pt presents to ER c/o abdominal pain that began 3 hrs prior to arrival to ER. Pt rates pain 10/10 on pain scale, pt crying and screaming in pain. Pt also reports nausea and vomiting. Pt in no acute respiratory distress, speaking full sentences, AOX4, ambulatory, father at bedside.
[2017-11-22] MEDS ORDERED: DIPHENHYDRAMINE INJ 50 MG/ML VIAL IVP ONE (14:15)
[2017-11-22] MEDS ORDERED: PROCHLORPERAZINE EDISYLATE 10 MG/2 ML VIAL IVP ONE (14:15)
[2017-11-22] MEDS ORDERED: fentaNYL CITRATE/PF 100 MCG/2 ML AMP IVP ONE (14:15)
--- NOTE | 2017-11-22 14:28 | NUR ---
Pt medicated as ordered by Dr. Le; pt tolerated well; pt no longer moaning or crying in pain but pt states pain level at 7/10. Will continue to monitor.
[2017-11-22] MEDS ORDERED: KETAMINE 30 MG/3 ML SYRINGE 30 MG in NS 100 ML IV ONE (15:00)
[2017-11-22] MEDS ORDERED: KETAMINE 30 MG/3 ML SYRINGE ONE (15:11)
--- NOTE | 2017-11-22 15:20 | NUR ---
Pt started on Ketamine drip as ordered by Dr. Le. Protocol followed. Pt tolerating well; will continue to monitor.
--- NOTE | 2017-11-22 15:37 | NUR ---
Dr. Le at bedside speaking with pt.
[2017-11-22] MEDS ORDERED: LORazepam 2 MG/ML VIAL (FOR ER USE) IVP ONE (16:00)
[2017-11-22 16:18] VITALS: BP_SYST 160
--- NOTE | 2017-11-22 16:18 | NUR ---
Patient given written and verbal discharge instructions and verbalizes understanding. ER MD discussed with patient the results and treatment provided. Patient in stable condition. ID arm band removed. IV catheter removed intact and dressing applied, no active bleeding. No Rx given. Patient educated on pain management and to follow up with PMD. Pain Scale 3. Opportunity for questions provided and answered.
== END 2017-11-22 16:18 | disposition home or self-care (01) ==
LOC: SED 13:53
DX: R10.9 Unspecified abdominal pain (principal); R11.2 Nausea with vomiting, unspecified; K31.84 Gastroparesis; M54.9 Dorsalgia, unspecified; E11.40 Type 2 diabetes mellitus with diabetic neuropathy, unspecified; I12.0 Hypertensive chronic kidney disease with stage 5 chronic kidney disease or end stage renal disease; E11.22 Type 2 diabetes mellitus with diabetic chronic kidney disease; N18.6 End stage renal disease; Z99.2 Dependence on renal dialysis; Z88.5 Allergy status to narcotic agent; Z88.8 Allergy status to other drugs, medicaments and biological substances; Z79.899 Other long term (current) drug therapy
CPT/HCPCS: 96374; 96375; 99284; J0780; J1200; J2060; J3010; 99283

== ENCOUNTER 2017-11-24 15:48 | Emergency (ER) | payer OTHER, MEDICAID ==
[~2017-11-24] VITALS: Ht 177.8 cm; Wt 104.3 kg
[2017-11-24 15:48] VITALS: BP_SYST 169
[2017-11-24] MEDS ORDERED: ONDANSETRON HCL 4 MG/2 ML VIAL IVP ONE (16:00)
[2017-11-24] MEDS ORDERED: LORazepam 2 MG/ML VIAL (FOR ER USE) IVP ONE (16:00)
[2017-11-24 16:30] LABS: BASOPHILS % (AUTO) 0.3 % (0.0-2.0); EOSINOPHILS # (AUTO) 0.1 K/uL (0.0-0.4); EOSINOPHILS % (AUTO) 0.5 % (0.0-4.0); HEMATOCRIT 42.6 % (36-54); HEMOGLOBIN 14.3 g/dL (14.0-18.0); LYMPHOCYTES # (AUTO) 1.8 K/uL (1.0-5.5); LYMPHOCYTES % (AUTO) 15.7 % (20.5-51.5); MEAN CORPUSCULAR HEMOGLOBIN 32 pg (27-31); MEAN CORPUSCULAR HGB CONC 33 % (32-36); MEAN CORPUSCULAR VOLUME 95 fL (79.0-98.0); MONOCYTES # (AUTO) 0.7 K/uL (0.0-1.0); NEUTROPHILS % (AUTO) 77.5 % (40.0-70.0); PLATELET COUNT (AUTO) 281 K/uL (130-430); RED BLOOD CELL COUNT(AUTO) 4.47 MIL/uL (4.2-6.2); RED CELL DISTRIBUTION WIDTH 14.5 % (9.0-15.0); WHITE BLOOD COUNT (AUTO) 11.6 K/uL (4.8-10.8)
[2017-11-24 16:40] LABS: CALCIUM 9.8 mg/dL (8.4-11.0); CREATININE 5.58 mg/dL (0.55-1.30); POTASSIUM 4.6 mmol/L (3.5-5.1)
[2017-11-24 16:42] LABS: PROTHROMBIN TIME 9.9 SECS (9.5-12.5)
[2017-11-24 16:46] LABS: ALBUMIN 4.5 g/dL (3.4-4.8); TOTAL BILIRUBIN 0.6 mg/dL (0.0-1.0)
== END 2017-11-24 18:55 | disposition home or self-care (01) ==
LOC: SED 15:48
DX: E11.43 Type 2 diabetes mellitus with diabetic autonomic (poly)neuropathy (principal); K31.84 Gastroparesis; E11.40 Type 2 diabetes mellitus with diabetic neuropathy, unspecified; E11.29 Type 2 diabetes mellitus with other diabetic kidney complication; N28.9 Disorder of kidney and ureter, unspecified; Z99.2 Dependence on renal dialysis; Z88.6 Allergy status to analgesic agent; Z79.899 Other long term (current) drug therapy
CPT/HCPCS: 36415; 74018; 80053; 82150; 83605; 83690; 85025; 85610; 85730; 96374; 96375; 99285; J2060; J2405

== ENCOUNTER 2017-11-30 12:11 | Emergency (ER) | payer OTHER, MEDICAID ==
[~2017-11-30] VITALS: Ht 177.8 cm; Wt 104.3 kg
[2017-11-30 12:11] VITALS: BP_SYST 207
--- NOTE | 2017-11-30 12:27 | NUR ---
ER at bedside examining patient.
--- NOTE | 2017-11-30 12:29 | NUR ---
Patient is awake, alert, and oriented x4. He is crying and screaming, mother is at bedside. Patient is complaining of "severe" abdominal pain. He has a history of gastroparesis, diabetes mellitus type II, bilateral blindness, end stage renal disease, hemodialysis on Monday, Monday, and Monday, rebel catheter to right upper chest.
[2017-11-30] MEDS ORDERED: fentaNYL CITRATE/PF 100 MCG/2 ML AMP IVP ONE (12:45)
[2017-11-30] MEDS ORDERED: DIPHENHYDRAMINE INJ 50 MG/ML VIAL IVP ONE (12:45)
[2017-11-30] MEDS ORDERED: HALOPERIDOL LACTATE 5 MG/ML VIAL IVP ONE (12:45)
--- NOTE | 2017-11-30 12:50 | NUR ---
Patient was screaming and crying. Immediately calmed down and stopped crying as soon as he was told that I had the pain medication. Patient then stated "can you hurry up?" Patient is now resting in bed without crying after pain medication.
--- NOTE | 2017-11-30 13:26 | NUR ---
Dr. Le made aware of abnormal vital signs.
[2017-11-30] MEDS ORDERED: KETAMINE 30 MG/3 ML SYRINGE 30 MG in NS 100 ML IV ONE (13:30)
[2017-11-30] MEDS ORDERED: LORazepam 2 MG/ML VIAL (FOR ER USE) IVP ONE (13:30)
[2017-11-30] MEDS ORDERED: KETAMINE 30 MG/3 ML SYRINGE ONE (13:35)
[2017-11-30] MEDS ORDERED: cloNIDine HCL 0.1 MG TABLET PO ONE (13:45)
[2017-11-30 14:19] VITALS: BP_SYST 132
--- NOTE | 2017-11-30 14:19 | NUR ---
Patient given written and verbal discharge instructions and verbalizes understanding. ER MD discussed with patient the results and treatment provided. Patient in stable condition. ID arm band removed. IV catheter removed intact and dressing applied, no active bleeding. Patient educated on pain management and to follow up with PMD. Pain Scale 2/10. Opportunity for questions provided and answered. Medication side effect fact sheet provided.
== END 2017-11-30 14:19 | disposition home or self-care (01) ==
LOC: SED 12:13
DX: G89.29 Other chronic pain (principal); R10.9 Unspecified abdominal pain; E11.43 Type 2 diabetes mellitus with diabetic autonomic (poly)neuropathy; K31.84 Gastroparesis; I10 Essential (primary) hypertension; Z88.5 Allergy status to narcotic agent; Z79.899 Other long term (current) drug therapy
CPT/HCPCS: 96374; 96375; 99284; J1200; J1630; J2060; J3010

== ENCOUNTER 2017-12-02 19:46 | Inpatient (IN) | payer OTHER, MEDICAID ==
[~2017-12-02] VITALS: Ht 180.3 cm; Wt 111.1 kg
[2017-12-02 20:08] VITALS: BP_SYST 204
[2017-12-02] MEDS ORDERED: METOCLOPRAMIDE HCL 10 MG/2 ML VIAL IVP ONE (21:30)
[2017-12-02] MEDS ORDERED: NACL 0.9% 500 ML IV ONE (21:30)
[2017-12-02] MEDS ORDERED: FAMOTIDINE PF 20 MG/2 ML VIAL IVP ONE (21:30)
[2017-12-02] MEDS ORDERED: METOCLOPRAMIDE HCL 10 MG/2 ML VIAL IVP PRN (22:30)
[2017-12-02] MEDS ORDERED: HYDROcodone/ACETAMIN 10-325 MG TAB PO PRN (22:30)
[2017-12-02] MEDS ORDERED: DEXTROSE 50% JECT 50 ML DISP.SYRIN IVP PRN (22:30)
[2017-12-02] MEDS ORDERED: HYDROmorphone 1 MG INJ. 1 MG/ML AMPUL ONE (22:38)
[2017-12-02] MEDS ORDERED: PANTOPRAZOLE SODIUM 40 MG/VIAL (PROTONIX) IVP SCH (23:30)
[2017-12-02 23:32] VITALS: BP_SYST 194
[2017-12-03] VITALS: BP_SYST 158
[2017-12-03] MEDS: NACL 0.9% 1,000 ML IV SCH ×2 (01:04→17:44)
[2017-12-03] MEDS: HYDROmorphone 1 MG INJ. 1 MG/ML AMPUL IVP PRN ×7 (02:12→21:02)
[2017-12-03] MEDS: hydrALAZINE HCL 25 MG TABLET PO SCH ×3 (06:26→21:01)
[2017-12-03] MEDS: INSULIN REGULAR, HUMAN 100 UNITS/ML, 10 ML VIAL (novoLIN R) SUBCUT PRN ×2 (06:27→17:53)
[2017-12-03 07:50] VITALS: BP_SYST 223
[2017-12-03 07:59] VITALS: BP_SYST 187
[2017-12-03] MEDS: PANTOPRAZOLE SODIUM 40 MG/VIAL (PROTONIX) IVP SCH (08:14)
[2017-12-03] MEDS ORDERED: METOPROLOL TARTRATE 50 MG TABLET PO SCH (09:00)
[2017-12-03] MEDS ORDERED: GABAPENTIN 300 MG CAPSULE PO PRN (12:45)
[2017-12-03] MEDS ORDERED: METOCLOPRAMIDE HCL 10 MG TABLET PO PRN (12:45)
[2017-12-03] MEDS ORDERED: METHOCARBAMOL 500 MG TABLET PO PRN (12:45)
[2017-12-03] MEDS ORDERED: ZOLPIDEM TARTRATE 5 MG TABLET PO PRN (13:00)
[2017-12-03] MEDS ORDERED: MAGNESIUM SULFATE 50 ML IV PRN (13:00)
[2017-12-03] MEDS ORDERED: ACETAMINOPHEN 325 MG TABLET PO PRN (13:00)
[2017-12-03] MEDS ORDERED: POTASSIUM CHLORIDE 20 MEQ TAB.PRT.SR PO PRN (13:00)
[2017-12-03] MEDS ORDERED: MUPIROCIN 2% TOPICAL OINTMENT 22 GM NS PRN (13:00)
[2017-12-03] MEDS ORDERED: DOCUSATE SODIUM 100 MG CAPSULE PO PRN (13:00)
[2017-12-03] MEDS: ONDANSETRON HCL 4 MG/2 ML VIAL IVP PRN (13:28)
[2017-12-03 14:06] LABS: PROTHROMBIN TIME 10.4 SECS (9.5-12.5)
[2017-12-03 14:20] LABS: ALANINE AMINOTRANSFERASE 17 U/L (12-78); ALBUMIN 4.1 g/dL (3.4-4.8); AMYLASE 49 U/L (0-100); ANION GAP 19 (5-15); ASPARTATE AMINOTRANSFERASE 13 U/L (10-37); CALCIUM 9.2 mg/dL (8.4-11.0); CHLORIDE 91 mmol/L (98-107); GLUCOSE 118 mg/dL (70-99); LIPASE 103 U/L (73-393); PHOSPHORUS 6.6 mg/dL (2.7-4.5); POTASSIUM 5.2 mmol/L (3.5-5.1); SODIUM SERUM 132 mmol/L (136-145); THYROID STIMULATING HORMONE 0.55 uIu/mL (0.34-4.82); TOTAL BILIRUBIN 0.6 mg/dL (0.0-1.0); UREA NITROGEN, BLOOD 70 mg/dL (8-21)
[2017-12-03 14:25] LABS: ALCOHOL, BLOOD < 3 mg/dL (<10); GFR AFRICAN AMERICAN 7 mL/min (>90)
[2017-12-03 14:26] LABS: CREATININE 11.27 mg/dL (0.55-1.30)
[2017-12-03] MEDS ORDERED: DEXTROSE 50% JECT 50 ML DISP.SYRIN IVP PRN (14:30)
[2017-12-03] MEDS ORDERED: INSULIN ASPART 100 UNITS/ML, 10 ML VIAL (NovoLOG) SUBCUT PRN (14:30)
[2017-12-03] MEDS: TIMOLOL MALEATE 0.5% OPHTHALMIC DROPS 5 ML BOTH EYES SCH ×2 (14:50→21:00)
[2017-12-03] MEDS: cloNIDine HCL 0.1 MG TABLET PO PRN (14:50)
[2017-12-03] MEDS: BRIMONIDINE TARTRATE 0.2% 5 mL EYE DROPS BOTH EYES SCH ×2 (14:51→20:59)
[2017-12-03] MEDS: LATANOPROST 2.5 ML DROPS (XALATAN) BOTH EYES SCH ×2 (14:52→20:58)
[2017-12-03 15:18] LABS: BASOPHILS % (AUTO) 0.3 % (0.0-2.0); EOSINOPHILS % (AUTO) 0.1 % (0.0-4.0); HEMATOCRIT 41.5 % (36-54); HEMOGLOBIN 13.8 g/dL (14.0-18.0); LYMPHOCYTES # (AUTO) 1.8 K/uL (1.0-5.5); LYMPHOCYTES % (AUTO) 11.9 % (20.5-51.5); MEAN CORPUSCULAR HEMOGLOBIN 32 pg (27-31); MEAN CORPUSCULAR HGB CONC 33 % (32-36); MEAN CORPUSCULAR VOLUME 96 fL (79.0-98.0); MONOCYTES # (AUTO) 0.5 K/uL (0.0-1.0); MONOCYTES % (AUTO) 3.5 % (1.7-9.3); NEUTROPHILS # (AUTO) 12.9 K/uL (1.8-7.7); NEUTROPHILS % (AUTO) 84.2 % (40.0-70.0); PLATELET COUNT (AUTO) 352 K/uL (130-430); RED BLOOD CELL COUNT(AUTO) 4.32 MIL/uL (4.2-6.2); RED CELL DISTRIBUTION WIDTH 14.6 % (9.0-15.0); WHITE BLOOD COUNT (AUTO) 15.2 K/uL (4.8-10.8)
[2017-12-03 17:50] VITALS: BP_SYST 175
[2017-12-03 20:00] VITALS: BP_SYST 191
[2017-12-03] MEDS: METOPROLOL TARTRATE 50 MG TABLET PO SCH (21:00)
[2017-12-03] MEDS: METOCLOPRAMIDE HCL 10 MG/2 ML VIAL IVP SCH (21:02)
[2017-12-04] MEDS: HYDROmorphone 1 MG INJ. 1 MG/ML AMPUL IVP PRN ×3 (01:16→08:57)
[2017-12-04] MEDS: METOCLOPRAMIDE HCL 10 MG/2 ML VIAL IVP SCH ×3 (05:15→22:10)
[2017-12-04] MEDS: hydrALAZINE HCL 25 MG TABLET PO SCH ×3 (05:19→22:10)
[2017-12-04 06:59] LABS: CALCIUM 8.6 mg/dL (8.4-11.0); PHOSPHORUS 7.7 mg/dL (2.7-4.5); POTASSIUM 5.6 mmol/L (3.5-5.1)
[2017-12-04 07:02] LABS: CREATININE 12.16 mg/dL (0.55-1.30)
[2017-12-04 07:45] LABS: HEMATOCRIT 34.5 % (36-54); HEMOGLOBIN 12.5 g/dL (14.0-18.0); MEAN CORPUSCULAR HEMOGLOBIN 35 pg (27-31); MEAN CORPUSCULAR HGB CONC 36 % (32-36); MEAN CORPUSCULAR VOLUME 96 fL (79.0-98.0); PLATELET COUNT (AUTO) 558 K/uL (130-430); WHITE BLOOD COUNT (AUTO) 14.4 K/uL (4.8-10.8)
[2017-12-04 08:00] VITALS: BP_SYST 211
[2017-12-04] MEDS: PANTOPRAZOLE SODIUM 40 MG/VIAL (PROTONIX) IVP SCH (08:54)
[2017-12-04] MEDS: ONDANSETRON HCL 4 MG/2 ML VIAL IVP PRN ×3 (08:56→23:52)
[2017-12-04] MEDS: METOPROLOL TARTRATE 50 MG TABLET PO SCH ×2 (09:00→20:38)
[2017-12-04] MEDS: TIMOLOL MALEATE 0.5% OPHTHALMIC DROPS 5 ML BOTH EYES SCH ×2 (09:05→20:39)
[2017-12-04] MEDS: cloNIDine HCL 0.1 MG TABLET PO PRN (09:05)
[2017-12-04] MEDS: BRIMONIDINE TARTRATE 0.2% 5 mL EYE DROPS BOTH EYES SCH ×2 (09:05→20:43)
[2017-12-04 12:28] LABS: BAND % (MANUAL) 3 % (0-6); BASOPHILS % (MANUAL) 0 % (0-2); EOSINOPHILS % (MANUAL) 0 % (0-7); LYMPHOCYTES % (MANUAL) 20 % (20-46); MONOCYTES % (MANUAL) 5 % (0-11)
[2017-12-04 12:41] VITALS: BP_SYST 181
[2017-12-04] MEDS: HYDROmorphone 2 MG/ML VIAL IVP PRN ×3 (12:47→20:40)
[2017-12-04 15:05] VITALS: BP_SYST 153
[2017-12-04] MEDS ORDERED: COMMUNICATION ORDER XX ONE (18:00)
[2017-12-04] MEDS ORDERED: HEPARIN SODIUM,PORCINE 5000 UNITS/ML VIAL IV ONE (18:30)
[2017-12-04 20:00] VITALS: BP_SYST 138
[2017-12-04] MEDS ORDERED: CALCIUM ACETATE 667 MG CAP PO ONE (20:00)
[2017-12-04] MEDS: LATANOPROST 2.5 ML DROPS (XALATAN) BOTH EYES SCH (20:44)
[2017-12-04] MEDS: INSULIN REGULAR, HUMAN 100 UNITS/ML, 10 ML VIAL (novoLIN R) SUBCUT PRN (20:55)
[2017-12-04 22:09] LABS: HEMOGLOBIN A1C 5.1 % (4.8-5.6)
[2017-12-05] VITALS (7 sets, daily range): BP systolic 132–174
[2017-12-05] MEDS: HYDROmorphone 2 MG/ML VIAL IVP PRN ×6 (01:09→21:12)
[2017-12-05] MEDS: METOCLOPRAMIDE HCL 10 MG/2 ML VIAL IVP SCH ×3 (05:11→21:09)
[2017-12-05] MEDS: hydrALAZINE HCL 25 MG TABLET PO SCH ×3 (05:12→22:42)
[2017-12-05] MEDS: cloNIDine HCL 0.2 MG TABLET PO PRN (05:19)
[2017-12-05] MEDS: CALCIUM ACETATE 667 MG CAP PO SCH ×3 (08:06→17:06)
[2017-12-05 08:26] LABS: POTASSIUM 5.1 mmol/L (3.5-5.1)
[2017-12-05 08:48] LABS: BASOPHILS # (AUTO) 0.1 K/uL (0.0-0.2); BASOPHILS % (AUTO) 0.6 % (0.0-2.0); EOSINOPHILS % (AUTO) 0.2 % (0.0-4.0); HEMATOCRIT 40.1 % (36-54); HEMOGLOBIN 13.2 g/dL (14.0-18.0); LYMPHOCYTES # (AUTO) 1.7 K/uL (1.0-5.5); MEAN CORPUSCULAR HEMOGLOBIN 32 pg (27-31); MEAN CORPUSCULAR HGB CONC 33 % (32-36); MEAN CORPUSCULAR VOLUME 97 fL (79.0-98.0); MONOCYTES # (AUTO) 0.9 K/uL (0.0-1.0); MONOCYTES % (AUTO) 7.9 % (1.7-9.3); NEUTROPHILS # (AUTO) 9.2 K/uL (1.8-7.7); NEUTROPHILS % (AUTO) 77.3 % (40.0-70.0); PLATELET COUNT (AUTO) 313 K/uL (130-430); RED BLOOD CELL COUNT(AUTO) 4.12 MIL/uL (4.2-6.2); WHITE BLOOD COUNT (AUTO) 11.9 K/uL (4.8-10.8)
[2017-12-05 08:49] LABS: CREATININE 10.61 mg/dL (0.55-1.30)
[2017-12-05] MEDS: PANTOPRAZOLE SODIUM 40 MG/VIAL (PROTONIX) IVP SCH (09:10)
[2017-12-05] MEDS: METOPROLOL TARTRATE 50 MG TABLET PO SCH ×2 (09:15→21:36)
[2017-12-05] MEDS: BRIMONIDINE TARTRATE 0.2% 5 mL EYE DROPS BOTH EYES SCH ×2 (09:22→21:39)
[2017-12-05] MEDS: TIMOLOL MALEATE 0.5% OPHTHALMIC DROPS 5 ML BOTH EYES SCH ×2 (09:24→21:35)
[2017-12-05] MEDS: INSULIN REGULAR, HUMAN 100 UNITS/ML, 10 ML VIAL (novoLIN R) SUBCUT PRN (11:36)
[2017-12-05] MEDS: ONDANSETRON HCL 4 MG/2 ML VIAL IVP PRN (17:56)
[2017-12-05] MEDS: LATANOPROST 2.5 ML DROPS (XALATAN) BOTH EYES SCH (21:38)
[2017-12-05] MEDS: CEFEPIME 1 GM in D5W 50 ML IV SCH (23:31)
[2017-12-06] VITALS (7 sets, daily range): BP systolic 153–188
[2017-12-06] MEDS: HYDROmorphone 2 MG/ML VIAL IVP PRN ×6 (01:13→21:50)
[2017-12-06] MEDS: METOCLOPRAMIDE HCL 10 MG/2 ML VIAL IVP SCH ×3 (05:05→22:03)
[2017-12-06] MEDS: hydrALAZINE HCL 25 MG TABLET PO SCH ×3 (06:01→22:04)
[2017-12-06] MEDS: ONDANSETRON HCL 4 MG/2 ML VIAL IVP PRN (06:10)
[2017-12-06 06:49] LABS: CALCIUM 8.9 mg/dL (8.4-11.0); POTASSIUM 5.4 mmol/L (3.5-5.1)
[2017-12-06 06:54] LABS: BASOPHILS % (AUTO) 0.3 % (0.0-2.0); EOSINOPHILS # (AUTO) 0.1 K/uL (0.0-0.4); EOSINOPHILS % (AUTO) 0.6 % (0.0-4.0); HEMATOCRIT 38.6 % (36-54); HEMOGLOBIN 12.6 g/dL (14.0-18.0); LYMPHOCYTES # (AUTO) 2.5 K/uL (1.0-5.5); LYMPHOCYTES % (AUTO) 19.7 % (20.5-51.5); MEAN CORPUSCULAR HEMOGLOBIN 32 pg (27-31); MEAN CORPUSCULAR HGB CONC 33 % (32-36); MEAN CORPUSCULAR VOLUME 97 fL (79.0-98.0); MONOCYTES # (AUTO) 1.3 K/uL (0.0-1.0); MONOCYTES % (AUTO) 10.3 % (1.7-9.3); NEUTROPHILS # (AUTO) 8.7 K/uL (1.8-7.7); NEUTROPHILS % (AUTO) 69.1 % (40.0-70.0); PLATELET COUNT (AUTO) 294 K/uL (130-430); RED BLOOD CELL COUNT(AUTO) 3.98 MIL/uL (4.2-6.2); RED CELL DISTRIBUTION WIDTH 14.9 % (9.0-15.0); WHITE BLOOD COUNT (AUTO) 12.6 K/uL (4.8-10.8)
[2017-12-06 07:21] LABS: CREATININE 12.29 mg/dL (0.55-1.30)
[2017-12-06] MEDS: CALCIUM ACETATE 667 MG CAP PO SCH ×3 (08:52→17:20)
[2017-12-06] MEDS: PANTOPRAZOLE SODIUM 40 MG/VIAL (PROTONIX) IVP SCH (08:53)
[2017-12-06] MEDS: BRIMONIDINE TARTRATE 0.2% 5 mL EYE DROPS BOTH EYES SCH ×2 (08:53→21:56)
[2017-12-06] MEDS: TIMOLOL MALEATE 0.5% OPHTHALMIC DROPS 5 ML BOTH EYES SCH ×2 (08:58→21:58)
[2017-12-06] MEDS: METOPROLOL TARTRATE 50 MG TABLET PO SCH ×2 (08:59→22:02)
[2017-12-06] MEDS ORDERED: ALTEPLASE 2 MG VIAL MC ONE (11:45)
[2017-12-06] MEDS: cloNIDine HCL 0.2 MG TABLET PO PRN (12:15)
[2017-12-06] MEDS: HYDROmorphone 1 MG INJ. 1 MG/ML AMPUL IVP PRN (20:35)
[2017-12-06] MEDS ORDERED: HYDROmorphone 1 MG INJ. 1 MG/ML AMPUL IVP PRN (21:00)
[2017-12-06] MEDS: LATANOPROST 2.5 ML DROPS (XALATAN) BOTH EYES SCH (22:00)
[2017-12-06] MEDS: CEFEPIME 1 GM in D5W 50 ML IV SCH (22:01)
[2017-12-06] MEDS: LORazepam 2 MG/ML VIAL IVP PRN (22:11)
[2017-12-06 23:16] LABS: BILIRUBIN,URINE NEGATIVE (NEGATIVE); BLOOD, URINE NEGATIVE (NEGATIVE); CLARITY/URINE SL HAZY (CLEAR); COLOR,URINE YELLOW (YELLOW); GLUCOSE,URINE 1+ (NEGATIVE); KETONES,URINE NEGATIVE (NEGATIVE); LEUKOCYTE ESTERASE ,URINE 1+ (NEGATIVE); NITRITE, URINE NEGATIVE (NEGATIVE); PROTEIN URINE 3+ (NEGATIVE); UROBILINOGEN,URINE 0.2 (0.2-1.0)
[2017-12-06 23:25] LABS: BACTERIA,URINE FEW /HPF (None Seen); RBC,URINE 0-3 /HPF (0-3)
[2017-12-06 23:26] LABS: URINE AMORPHOUS URATE 2+ /HPF (None Seen)
[2017-12-07] MEDS: HYDROmorphone 2 MG/ML VIAL IVP PRN ×8 (00:40→23:49)
[2017-12-07] MEDS: cloNIDine HCL 0.2 MG TABLET PO PRN (00:43)
[2017-12-07] MEDS: LORazepam 2 MG/ML VIAL IVP PRN ×4 (03:46→23:03)
[2017-12-07] MEDS: ONDANSETRON HCL 4 MG/2 ML VIAL IVP PRN ×3 (03:52→18:38)
[2017-12-07 06:00] VITALS: BP_SYST 133
[2017-12-07] MEDS: METOCLOPRAMIDE HCL 10 MG/2 ML VIAL IVP SCH ×3 (06:38→22:55)
[2017-12-07] MEDS: hydrALAZINE HCL 25 MG TABLET PO SCH ×3 (06:44→22:55)
[2017-12-07 07:03] LABS: BASOPHILS % (AUTO) 0.3 % (0.0-2.0); CALCIUM 8.9 mg/dL (8.4-11.0); EOSINOPHILS # (AUTO) 0.1 K/uL (0.0-0.4); EOSINOPHILS % (AUTO) 0.5 % (0.0-4.0); LYMPHOCYTES # (AUTO) 2.8 K/uL (1.0-5.5); LYMPHOCYTES % (AUTO) 22.2 % (20.5-51.5); MEAN CORPUSCULAR HEMOGLOBIN 32 pg (27-31); MEAN CORPUSCULAR HGB CONC 33 % (32-36); MEAN CORPUSCULAR VOLUME 95 fL (79.0-98.0); MONOCYTES # (AUTO) 1.4 K/uL (0.0-1.0); MONOCYTES % (AUTO) 10.8 % (1.7-9.3); NEUTROPHILS # (AUTO) 8.4 K/uL (1.8-7.7); NEUTROPHILS % (AUTO) 66.2 % (40.0-70.0); PLATELET COUNT (AUTO) 266 K/uL (130-430); RED BLOOD CELL COUNT(AUTO) 3.78 MIL/uL (4.2-6.2); RED CELL DISTRIBUTION WIDTH 14.4 % (9.0-15.0); WHITE BLOOD COUNT (AUTO) 12.7 K/uL (4.8-10.8)
[2017-12-07 07:43] LABS: POTASSIUM 5.8 mmol/L (3.5-5.1)
[2017-12-07 07:46] LABS: CREATININE 12.76 mg/dL (0.55-1.30)
[2017-12-07] MEDS: POLYETHYLENE GLYCOL 3350, 17 GM/ POWD.PACK PO SCH (08:46)
[2017-12-07] MEDS: PANTOPRAZOLE SODIUM 40 MG/VIAL (PROTONIX) IVP SCH (08:46)
[2017-12-07] MEDS: METOPROLOL TARTRATE 50 MG TABLET PO SCH ×2 (08:47→20:48)
[2017-12-07] MEDS: CALCIUM ACETATE 667 MG CAP PO SCH ×3 (08:47→17:11)
[2017-12-07] MEDS: BRIMONIDINE TARTRATE 0.2% 5 mL EYE DROPS BOTH EYES SCH ×2 (08:56→20:33)
[2017-12-07] MEDS: TIMOLOL MALEATE 0.5% OPHTHALMIC DROPS 5 ML BOTH EYES SCH ×2 (08:56→20:46)
[2017-12-07] MEDS ORDERED: BISACODYL 10 MG/SUPPOSITORY RC PRN (09:00)
[2017-12-07 12:20] VITALS: BP_SYST 121
[2017-12-07 16:20] VITALS: BP_SYST 141
[2017-12-07 20:30] VITALS: BP_SYST 153
[2017-12-07] MEDS: LATANOPROST 2.5 ML DROPS (XALATAN) BOTH EYES SCH (20:48)
[2017-12-07] MEDS: INSULIN REGULAR, HUMAN 100 UNITS/ML, 10 ML VIAL (novoLIN R) SUBCUT PRN (20:57)
[2017-12-07] MEDS: CEFEPIME 1 GM in D5W 50 ML IV SCH (21:05)
[2017-12-07 23:30] VITALS: BP_SYST 142
[2017-12-08] MEDS: HYDROmorphone 2 MG/ML VIAL IVP PRN ×7 (02:57→21:56)
[2017-12-08] MEDS: LORazepam 2 MG/ML VIAL IVP PRN ×3 (03:38→20:09)
[2017-12-08 04:12] VITALS: BP_SYST 141
[2017-12-08] MEDS: METOCLOPRAMIDE HCL 10 MG/2 ML VIAL IVP SCH ×3 (05:57→22:04)
[2017-12-08] MEDS: hydrALAZINE HCL 25 MG TABLET PO SCH ×3 (05:58→22:12)
[2017-12-08 06:37] LABS: EOSINOPHILS # (AUTO) 0.3 K/uL (0.0-0.4); HEMOGLOBIN 12.1 g/dL (14.0-18.0); MONOCYTES # (AUTO) 1.3 K/uL (0.0-1.0)
[2017-12-08 06:46] LABS: CALCIUM 8.9 mg/dL (8.4-11.0); CREATININE 14.41 mg/dL (0.55-1.30)
[2017-12-08 06:53] LABS: BASOPHILS % (AUTO) 0.3 % (0.0-2.0); EOSINOPHILS % (AUTO) 1.8 % (0.0-4.0); HEMATOCRIT 35.7 % (36-54); LYMPHOCYTES # (AUTO) 2.8 K/uL (1.0-5.5); LYMPHOCYTES % (AUTO) 18.8 % (20.5-51.5); MEAN CORPUSCULAR HEMOGLOBIN 33 pg (27-31); MEAN CORPUSCULAR HGB CONC 34 % (32-36); MEAN CORPUSCULAR VOLUME 96 fL (79.0-98.0); MONOCYTES % (AUTO) 8.7 % (1.7-9.3); NEUTROPHILS # (AUTO) 10.4 K/uL (1.8-7.7); NEUTROPHILS % (AUTO) 70.4 % (40.0-70.0); PLATELET COUNT (AUTO) 250 K/uL (130-430); RED BLOOD CELL COUNT(AUTO) 3.72 MIL/uL (4.2-6.2); RED CELL DISTRIBUTION WIDTH 14.4 % (9.0-15.0); WHITE BLOOD COUNT (AUTO) 14.8 K/uL (4.8-10.8)
[2017-12-08 06:54] LABS: POTASSIUM 6.6 mmol/L (3.5-5.1)
[2017-12-08 08:02] VITALS: BP_SYST 159
[2017-12-08] MEDS: CALCIUM ACETATE 667 MG CAP PO SCH ×3 (08:25→18:43)
[2017-12-08] MEDS: METOPROLOL TARTRATE 50 MG TABLET PO SCH ×2 (09:00→22:11)
[2017-12-08] MEDS: TIMOLOL MALEATE 0.5% OPHTHALMIC DROPS 5 ML BOTH EYES SCH ×2 (09:09→22:06)
[2017-12-08] MEDS: POLYETHYLENE GLYCOL 3350, 17 GM/ POWD.PACK PO SCH (09:09)
[2017-12-08] MEDS: PANTOPRAZOLE SODIUM 40 MG/VIAL (PROTONIX) IVP SCH (09:09)
[2017-12-08] MEDS: BRIMONIDINE TARTRATE 0.2% 5 mL EYE DROPS BOTH EYES SCH ×2 (09:10→22:06)
[2017-12-08] MEDS: INSULIN REGULAR, HUMAN 100 UNITS/ML, 10 ML VIAL (novoLIN R) SUBCUT PRN ×2 (11:58→22:16)
[2017-12-08 12:24] VITALS: BP_SYST 102
[2017-12-08 16:02] VITALS: BP_SYST 147
[2017-12-08] MEDS: ONDANSETRON HCL 4 MG/2 ML VIAL IVP PRN (16:38)
[2017-12-08] MEDS ORDERED: VANCOMYCIN HCL 1,500 MG in NS 250 ML IV ONE (18:00)
[2017-12-08 19:00] VITALS: BP_SYST 128
[2017-12-08 20:00] VITALS: BP_SYST 124
[2017-12-08] MEDS: LATANOPROST 2.5 ML DROPS (XALATAN) BOTH EYES SCH (22:07)
[2017-12-08] MEDS: CEFEPIME 1 GM in D5W 50 ML IV SCH (22:08)
[2017-12-09] VITALS (7 sets, daily range): BP systolic 128–172
[2017-12-09] MEDS: LORazepam 2 MG/ML VIAL IVP PRN ×6 (00:02→22:45)
[2017-12-09] MEDS: cloNIDine HCL 0.2 MG TABLET PO PRN (00:05)
[2017-12-09] MEDS: HYDROmorphone 2 MG/ML VIAL IVP PRN ×8 (01:13→22:45)
[2017-12-09] MEDS: ONDANSETRON HCL 4 MG/2 ML VIAL IVP PRN ×3 (02:15→15:56)
[2017-12-09] MEDS: METOCLOPRAMIDE HCL 10 MG/2 ML VIAL IVP SCH ×3 (06:23→21:19)
[2017-12-09] MEDS: hydrALAZINE HCL 25 MG TABLET PO SCH ×3 (06:24→21:21)
[2017-12-09 08:44] LABS: CALCIUM 8.8 mg/dL (8.4-11.0)
[2017-12-09 08:47] LABS: POTASSIUM 6.4 mmol/L (3.5-5.1)
[2017-12-09 08:50] LABS: CREATININE 10.97 mg/dL (0.55-1.30)
[2017-12-09] MEDS: PANTOPRAZOLE SODIUM 40 MG/VIAL (PROTONIX) IVP SCH (09:05)
[2017-12-09] MEDS: TIMOLOL MALEATE 0.5% OPHTHALMIC DROPS 5 ML BOTH EYES SCH ×2 (09:06→21:17)
[2017-12-09] MEDS: BRIMONIDINE TARTRATE 0.2% 5 mL EYE DROPS BOTH EYES SCH ×2 (09:06→21:18)
[2017-12-09] MEDS: CALCIUM ACETATE 667 MG CAP PO SCH ×3 (09:06→17:27)
[2017-12-09] MEDS: METOPROLOL TARTRATE 50 MG TABLET PO SCH ×2 (09:07→21:20)
[2017-12-09] MEDS: POLYETHYLENE GLYCOL 3350, 17 GM/ POWD.PACK PO SCH (09:07)
[2017-12-09] MEDS: INSULIN REGULAR, HUMAN 100 UNITS/ML, 10 ML VIAL (novoLIN R) SUBCUT PRN ×2 (11:34→21:29)
[2017-12-09] MEDS ORDERED: VANCOMYCIN HCL 1.25 GM/NS 250 ML IV ONE (18:00)
[2017-12-09] MEDS: LATANOPROST 2.5 ML DROPS (XALATAN) BOTH EYES SCH (21:17)
[2017-12-09] MEDS: CEFEPIME 1 GM in D5W 50 ML IV SCH (21:18)
[2017-12-10] VITALS (9 sets, daily range): BP systolic 115–183
[2017-12-10] MEDS: HYDROmorphone 2 MG/ML VIAL IVP PRN ×7 (01:47→20:51)
[2017-12-10] MEDS: LORazepam 2 MG/ML VIAL IVP PRN ×4 (03:14→18:13)
[2017-12-10] MEDS: hydrALAZINE HCL 25 MG TABLET PO SCH ×3 (06:13→21:32)
[2017-12-10] MEDS: METOCLOPRAMIDE HCL 10 MG/2 ML VIAL IVP SCH ×3 (06:14→21:33)
[2017-12-10 07:47] LABS: CALCIUM 8.8 mg/dL (8.4-11.0); POTASSIUM 5.6 mmol/L (3.5-5.1)
[2017-12-10 08:08] LABS: CREATININE 9.19 mg/dL (0.55-1.30)
[2017-12-10] MEDS: CALCIUM ACETATE 667 MG CAP PO SCH ×3 (08:29→17:15)
[2017-12-10] MEDS: POLYETHYLENE GLYCOL 3350, 17 GM/ POWD.PACK PO SCH (08:32)
[2017-12-10] MEDS: PANTOPRAZOLE SODIUM 40 MG/VIAL (PROTONIX) IVP SCH (08:32)
[2017-12-10] MEDS: TIMOLOL MALEATE 0.5% OPHTHALMIC DROPS 5 ML BOTH EYES SCH ×2 (08:48→21:04)
[2017-12-10] MEDS: BRIMONIDINE TARTRATE 0.2% 5 mL EYE DROPS BOTH EYES SCH ×2 (08:49→21:04)
[2017-12-10 09:25] LABS: BASOPHILS # (AUTO) 0.1 K/uL (0.0-0.2); BASOPHILS % (AUTO) 1.2 % (0.0-2.0); EOSINOPHILS # (AUTO) 0.4 K/uL (0.0-0.4); EOSINOPHILS % (AUTO) 3.4 % (0.0-4.0); HEMATOCRIT 31.1 % (36-54); HEMOGLOBIN 9.7 g/dL (14.0-18.0); LYMPHOCYTES # (AUTO) 2.7 K/uL (1.0-5.5); LYMPHOCYTES % (AUTO) 22.4 % (20.5-51.5); MEAN CORPUSCULAR HEMOGLOBIN 31 pg (27-31); MEAN CORPUSCULAR HGB CONC 31 % (32-36); MEAN CORPUSCULAR VOLUME 98 fL (79.0-98.0); MONOCYTES # (AUTO) 1.1 K/uL (0.0-1.0); MONOCYTES % (AUTO) 9.2 % (1.7-9.3); NEUTROPHILS # (AUTO) 7.9 K/uL (1.8-7.7); NEUTROPHILS % (AUTO) 63.8 % (40.0-70.0); PLATELET COUNT (AUTO) 212 K/uL (130-430); RED BLOOD CELL COUNT(AUTO) 3.18 MIL/uL (4.2-6.2); RED CELL DISTRIBUTION WIDTH 14.3 % (9.0-15.0); WHITE BLOOD COUNT (AUTO) 12.2 K/uL (4.8-10.8)
[2017-12-10] MEDS: METOPROLOL TARTRATE 50 MG TABLET PO SCH ×2 (10:17→20:53)
[2017-12-10] MEDS: ONDANSETRON HCL 4 MG/2 ML VIAL IVP PRN ×2 (12:07→18:13)
[2017-12-10] MEDS: cloNIDine HCL 0.2 MG TABLET PO PRN ×2 (12:10→21:32)
[2017-12-10] MEDS: CEFEPIME 1 GM in D5W 50 ML IV SCH (21:03)
[2017-12-10] MEDS: LATANOPROST 2.5 ML DROPS (XALATAN) BOTH EYES SCH (21:04)
[2017-12-11 00:11] VITALS: BP_SYST 176
[2017-12-11] MEDS: HYDROmorphone 2 MG/ML VIAL IVP PRN ×6 (00:26→18:11)
[2017-12-11] MEDS: LORazepam 2 MG/ML VIAL IVP PRN ×3 (04:54→18:11)
[2017-12-11] MEDS: cloNIDine HCL 0.2 MG TABLET PO PRN ×2 (04:55→08:26)
[2017-12-11] MEDS: hydrALAZINE HCL 25 MG TABLET PO SCH ×2 (06:00→18:19)
[2017-12-11] MEDS: METOCLOPRAMIDE HCL 10 MG/2 ML VIAL IVP SCH ×2 (06:00→14:00)
[2017-12-11 06:47] LABS: CALCIUM 8.9 mg/dL (8.4-11.0)
[2017-12-11 07:27] LABS: POTASSIUM 6.1 mmol/L (3.5-5.1)
[2017-12-11 07:28] LABS: CREATININE 10.88 mg/dL (0.55-1.30)
[2017-12-11 08:18] LABS: HEMATOCRIT 29.8 % (36-54); HEMOGLOBIN 9.3 g/dL (14.0-18.0); MEAN CORPUSCULAR HEMOGLOBIN 31 pg (27-31); MEAN CORPUSCULAR HGB CONC 31 % (32-36); MEAN CORPUSCULAR VOLUME 98 fL (79.0-98.0); PLATELET COUNT (AUTO) 214 K/uL (130-430); RED BLOOD CELL COUNT(AUTO) 3.06 MIL/uL (4.2-6.2); RED CELL DISTRIBUTION WIDTH 13.9 % (9.0-15.0)
[2017-12-11 08:19] LABS: BASOPHILS % (AUTO) 0.4 % (0.0-2.0); EOSINOPHILS # (AUTO) 0.4 K/uL (0.0-0.4); EOSINOPHILS % (AUTO) 3.2 % (0.0-4.0); LYMPHOCYTES # (AUTO) 2.1 K/uL (1.0-5.5); LYMPHOCYTES % (AUTO) 17.2 % (20.5-51.5); MONOCYTES # (AUTO) 0.8 K/uL (0.0-1.0); MONOCYTES % (AUTO) 6.5 % (1.7-9.3); NEUTROPHILS # (AUTO) 8.7 K/uL (1.8-7.7); NEUTROPHILS % (AUTO) 72.7 % (40.0-70.0)
[2017-12-11] MEDS: CALCIUM ACETATE 667 MG CAP PO SCH ×3 (08:26→18:32)
[2017-12-11] MEDS: PANTOPRAZOLE SODIUM 40 MG/VIAL (PROTONIX) IVP SCH (08:39)
[2017-12-11] MEDS: METOPROLOL TARTRATE 50 MG TABLET PO SCH (08:40)
[2017-12-11] MEDS: POLYETHYLENE GLYCOL 3350, 17 GM/ POWD.PACK PO SCH (08:41)
[2017-12-11] MEDS: BRIMONIDINE TARTRATE 0.2% 5 mL EYE DROPS BOTH EYES SCH (08:42)
[2017-12-11] MEDS: TIMOLOL MALEATE 0.5% OPHTHALMIC DROPS 5 ML BOTH EYES SCH (08:43)
[2017-12-11] MEDS ORDERED: ISOSORBIDE DINITRATE 20 MG TABLET (ISORDIL) PO ONE (10:30)
[2017-12-11 11:23] VITALS: BP_SYST 149
[2017-12-11] MEDS: INSULIN REGULAR, HUMAN 100 UNITS/ML, 10 ML VIAL (novoLIN R) SUBCUT PRN ×2 (11:47→18:24)
[2017-12-11] MEDS ORDERED: HEPARIN SODIUM,PORCINE 5000 UNITS/ML VIAL ONE (14:48)
[2017-12-11 15:18] VITALS: BP_SYST 150
[2017-12-11 16:43] VITALS: BP_SYST 149
[2017-12-11] MEDS ORDERED: CEFEPIME 1 GM in D5W 50 ML IV SCH (21:00)
== END 2017-12-11 18:55 | disposition home or self-care (01) | DRG 871 ==
LOC: SED 19:46 → STU 22:22
PROVIDERS: ADMIT Family Medicine; ATTEND Family Medicine
PROC: 5A1D70Z Performance of Urinary Filtration, Intermittent, Less than 6 Hours Per Day (ICD-10-PCS; principal; 2017-12-04)
PROC: 5A1D70Z Performance of Urinary Filtration, Intermittent, Less than 6 Hours Per Day (ICD-10-PCS; 2017-12-06)
PROC: 5A1D70Z Performance of Urinary Filtration, Intermittent, Less than 6 Hours Per Day (ICD-10-PCS; 2017-12-08)
PROC: 5A1D70Z Performance of Urinary Filtration, Intermittent, Less than 6 Hours Per Day (ICD-10-PCS; 2017-12-09)
PROC: 5A1D70Z Performance of Urinary Filtration, Intermittent, Less than 6 Hours Per Day (ICD-10-PCS; 2017-12-11)
DX: A41.2 Sepsis due to unspecified staphylococcus (principal); N18.6 End stage renal disease; N17.0 Acute kidney failure with tubular necrosis; N39.0 Urinary tract infection, site not specified; F11.20 Opioid dependence, uncomplicated; I12.0 Hypertensive chronic kidney disease with stage 5 chronic kidney disease or end stage renal disease; N25.81 Secondary hyperparathyroidism of renal origin; E87.5 Hyperkalemia; D63.1 Anemia in chronic kidney disease; K59.00 Constipation, unspecified; E10.22 Type 1 diabetes mellitus with diabetic chronic kidney disease; E10.43 Type 1 diabetes mellitus with diabetic autonomic (poly)neuropathy; F12.90 Cannabis use, unspecified, uncomplicated; K31.84 Gastroparesis; H54.8 Legal blindness, as defined in USA; E66.9 Obesity, unspecified; K21.9 Gastro-esophageal reflux disease without esophagitis; Z99.2 Dependence on renal dialysis; Z91.19 Patient's noncompliance with other medical treatment and regimen; Z68.34 Body mass index [BMI] 34.0-34.9, adult; Z88.5 Allergy status to narcotic agent; Z88.8 Allergy status to other drugs, medicaments and biological substances; Z79.84 Long term (current) use of oral hypoglycemic drugs; Z79.899 Other long term (current) drug therapy
CPT/HCPCS: 36415; 71045; 76770; 80048; 80053; 80061; 80202-TC; 81000-TC; 82140-TC; 82150-TC; 82272; 82550-TC; 82962; 83036; 83690-TC; 83735-TC; 84100-TC; 84436; 84439; 84443-TC; 84479; 84480; 84484; 85007; 85025; 85027; 85610-TC; 85651-TC; 85730-TC; 87040-TC; 87081; 87086; 90935; 90937; 93005; 96361; 96372; 96374; 96375; 99285; C9113; G0482; J0692; J1170; J1200; J1630; J1644; J1815; J2060; J2405; J2765; J2997; J3010; J3370; J3490; J7030; J7050; J7060; J8597

== ENCOUNTER 2017-12-17 20:32 | Inpatient (IN) | payer OTHER, MEDICAID ==
[~2017-12-17] VITALS: Ht 172.7 cm; Wt 118.4 kg
[2017-12-17 20:40] VITALS: BP_SYST 212
--- NOTE | 2017-12-17 20:40 | NUR ---
Patient to ER bed 8 to gown for evaluation. Side rails up
--- NOTE | 2017-12-17 20:45 | NUR ---
Pt complains of abdominal pain since 12pm this afternoon. Pt states "my gastroparesis is acting up." Pt states he took his dilaudid pill with no relief. Pt has dialysis tomorrow, Monday, and Monday. Per pt, vomited x 5. Pt states "when I usually come in, they give me Dilaudid." No other injuries/complaints per patient or noted. Mother at bedside.
--- NOTE | 2017-12-17 20:51 | NUR ---
ER Dr. Hayward at bedside examining patient.
[2017-12-17] MEDS ORDERED: fentaNYL CITRATE/PF 100 MCG/2 ML AMP IVP ONE ×3 (21:00→23:30)
[2017-12-17] MEDS ORDERED: ONDANSETRON HCL 4 MG/2 ML VIAL IVP ONE ×2 (21:00→22:30)
--- NOTE | 2017-12-17 21:15 | NUR ---
Medications were given, pt tolerated well. No adverse reaction, will continue to monitor.
[2017-12-17 21:41] LABS: BASOPHILS % (AUTO) 0.4 % (0.0-2.0); CALCIUM 9.2 mg/dL (8.4-11.0); EOSINOPHILS # (AUTO) 0.1 K/uL (0.0-0.4); EOSINOPHILS % (AUTO) 0.8 % (0.0-4.0); HEMATOCRIT 32.2 % (36-54); HEMOGLOBIN 10.9 g/dL (14.0-18.0); LYMPHOCYTES # (AUTO) 2.1 K/uL (1.0-5.5); LYMPHOCYTES % (AUTO) 19.1 % (20.5-51.5); MEAN CORPUSCULAR HEMOGLOBIN 32 pg (27-31); MEAN CORPUSCULAR HGB CONC 34 % (32-36); MEAN CORPUSCULAR VOLUME 94 fL (79.0-98.0); MONOCYTES # (AUTO) 0.7 K/uL (0.0-1.0); MONOCYTES % (AUTO) 6.8 % (1.7-9.3); NEUTROPHILS % (AUTO) 72.9 % (40.0-70.0); PLATELET COUNT (AUTO) 302 K/uL (130-430); POTASSIUM 4.3 mmol/L (3.5-5.1); RED CELL DISTRIBUTION WIDTH 14.1 % (9.0-15.0); WHITE BLOOD COUNT (AUTO) 10.9 K/uL (4.8-10.8)
[2017-12-17 21:46] LABS: ALBUMIN 3.7 g/dL (3.4-4.8); TOTAL BILIRUBIN 0.4 mg/dL (0.0-1.0)
[2017-12-17 22:01] LABS: CREATININE 7.68 mg/dL (0.55-1.30)
[2017-12-17] MEDS ORDERED: ONDANSETRON HCL 4 MG/2 ML VIAL ONE (22:22)
[2017-12-17] MEDS ORDERED: INSULIN REGULAR, HUMAN 100 UNITS/ML, 10 ML VIAL (novoLIN R) SUBCUT PRN (23:00)
[2017-12-17] MEDS ORDERED: hydrALAZINE HCL 20 MG/ML VIAL IVP ONE ×2 (23:00→23:30)
[2017-12-17] MEDS ORDERED: LORazepam 2 MG/ML VIAL IVP PRN (23:00)
[2017-12-17] MEDS ORDERED: DEXTROSE 50% JECT 50 ML DISP.SYRIN IVP PRN (23:00)
[2017-12-17] MEDS ORDERED: METOCLOPRAMIDE HCL 10 MG/2 ML VIAL IVP ONE (23:00)
--- NOTE | 2017-12-17 23:28 | NUR ---
ADMISSION NOTE Received patient from ER via [place], received report from BRANNON FLORENCE. Patient admitted with diagnosis of GASTROPARESIS. Patient oriented to hospital routine, call light, toileting and safety-patient verbalized understanding.
[2017-12-17 23:29] VITALS: BP_SYST 210
--- NOTE | 2017-12-17 23:39 | NUR ---
Patient will be admitted to care of Dr. Jenkins. Admitted to Telemetry unit. Will go to room 101 A. Belongings list completed. Summary report printed. Report will be given at bedside.
--- NOTE | 2017-12-17 23:39 | NUR ---
Transfer to Telemetry via ACLS protocol. Licensed nurse present. IV present no signs or symptoms of infiltration.
--- NOTE | 2017-12-17 23:50 | NUR ---
OPENING NOTE RECEIVED PT. PT IS VERY AGITATED AND YELLING THAT HE IS IN PAIN. UNABLE TO OBTAIN BLOOD PRESSURE READING, PT WILL NOT STOP MOVING AND YELLING. IV IS INTACT AND PATENT. PT IS ON ROOM AIR. MOTHER IS AT BEDSIDE. CALL LIGHT WITH PT. WILL CONTINUE TO MONITOR.
[2017-12-18] VITALS (8 sets, daily range): BP systolic 154–222
[2017-12-18] MEDS ORDERED: HYDROmorphone 1 MG INJ. 1 MG/ML AMPUL IVP PRN
[2017-12-18] MEDS ORDERED: hydrALAZINE HCL 10 MG TABLET PO ONE
--- NOTE | 2017-12-18 | NUR ---
DR. PETERSON ORDERS INFORMED DR. PETERSON OF PTS PAIN AND BLOOD PRESSURE. INFORMED THAT PT NEEDS EKG. RECEIVED NEW ORDERS FROM DR. PETERSON. WILL FOLLOW THROUGH WITH ORDERS.
[2017-12-18] MEDS: ONDANSETRON HCL 4 MG/2 ML VIAL IVP PRN (00:16)
--- NOTE | 2017-12-18 00:16 | NUR ---
FORCE VOMITING/ PRN NAUSEA MED ADMINISTERED PRN NAUSEA MEDICATION PER ORDER. OBSERVED PT PLACING FINGERS IN HIS MOUTH TO INDUCE VOMITING.
[2017-12-18] MEDS: NACL 0.9% 1,000 ML IV SCH ×2 (00:22→23:54)
--- NOTE | 2017-12-18 01:50 | NUR ---
DR. PETERSON, ORDERS INFORMED DR. PETERSON THAT PT IS NOT ABLE TO TAKE PO BLOOD PRESSURE MEDICATION HE IS VOMITING. ALSO INFORMED DR. PETERSON OF PT PREVIOUS PAIN MEDICATION. RECEIVED NEW ORDERS WILL FOLLOW THROUGH WITH ORDERS.
--- NOTE | 2017-12-18 02:11 | NUR ---
IV BP MEDICATION BLOOD PRESSURE IS 212/129. ADMINISTERED IV BLOOD PRESSURE MEDICATION PER ORDERS. WILL CONTINUE TO MONITOR.
[2017-12-18] MEDS ORDERED: hydrALAZINE HCL 20 MG/ML VIAL IVP SCH (02:30)
--- NOTE | 2017-12-18 02:54 | NUR ---
ATIVAN ADMINISTERED IV ATIVAN PER ORDERS. ATTEMPTED TO TAKE BLOOD PRESSURE, PT IS AGITATED AND JUMPING IN BED. UNABLE TO OBTAIN READING.
--- NOTE | 2017-12-18 02:57 | NUR ---
PT INDUCING VOMITING. OBSERVED PT PLACE FINGERS IS MOUTH TO INDUCE VOMITING. PT STATES IT "MAKES HIM FEEL BETTER." WILL CONTINUE TO MONITOR.
[2017-12-18] MEDS: HYDROmorphone 2 MG/ML VIAL IVP PRN ×7 (04:27→23:54)
--- NOTE | 2017-12-18 04:27 | NUR ---
PRN PAIN/ BP MEDICATION ADMINISTERED PRN PAIN MEDICATION AND PRN BLOOD PRESSURE PER ORDERS. INSTRUCTED PT NOT TO INDUCE VOMITING. PT VERBALIZED UNDERSTANDING. WILL CONTINUE TO MONITOR.
[2017-12-18] MEDS: cloNIDine HCL 0.1 MG TABLET PO PRN ×3 (04:29→23:33)
--- NOTE | 2017-12-18 05:16 | NUR ---
BP RECHECK BP READING OF 156/119. PT IS SLEEPING AT THIS TIME. WILL CONTINUE TO MONITOR.
--- NOTE | 2017-12-18 06:00 | NUR ---
BLOOD SUGAR BLOOD SUGAR READING OF 174. PT REFUSED INSULIN. PT STATES "NO, IT'LL GO DOWN."
[2017-12-18 06:25] LABS: BASOPHILS % (AUTO) 0.2 % (0.0-2.0); HEMATOCRIT 31.5 % (36-54); HEMOGLOBIN 10.8 g/dL (14.0-18.0); LYMPHOCYTES # (AUTO) 0.8 K/uL (1.0-5.5); LYMPHOCYTES % (AUTO) 5.9 % (20.5-51.5); MEAN CORPUSCULAR HEMOGLOBIN 32 pg (27-31); MEAN CORPUSCULAR HGB CONC 35 % (32-36); MEAN CORPUSCULAR VOLUME 93 fL (79.0-98.0); MONOCYTES # (AUTO) 0.3 K/uL (0.0-1.0); NEUTROPHILS # (AUTO) 11.9 K/uL (1.8-7.7); NEUTROPHILS % (AUTO) 91.9 % (40.0-70.0); PLATELET COUNT (AUTO) 313 K/uL (130-430); RED BLOOD CELL COUNT(AUTO) 3.39 MIL/uL (4.2-6.2); RED CELL DISTRIBUTION WIDTH 14.1 % (9.0-15.0)
--- NOTE | 2017-12-18 06:54 | NUR ---
CLOSING NOTE WILL ENDORSE CARE AND REPORT TO DAY SHIFT NURSE. PT CURRENTLY SLEEPING IN BED. NO S/S OF DISTRESS OR DISCOMFORT. IVF RUNNING PER ORDERS. ALL NEEDS MET THROUGHOUT SHIFT. PT'S PAIN AND BLOOD PRESSURE MANAGED THROUGHOUT SHIFT. PT IN STABLE CONDITION. CALL LIGHT WITH PT. WILL CONTINUE TO MONITOR.
[2017-12-18 07:44] LABS: CALCIUM 9.3 mg/dL (8.4-11.0); PHOSPHORUS 5.6 mg/dL (2.7-4.5); POTASSIUM 4.4 mmol/L (3.5-5.1)
[2017-12-18 07:52] LABS: CREATININE 8.53 mg/dL (0.55-1.30)
--- NOTE | 2017-12-18 08:00 | NUR ---
Opening Note received report from career information specialist RN, A&Ox4, respirations even and unlabored on room air, pt complaint of pain 10/10 to left upper abdomen, PRN pain medication indicated, IV site clean, dry, and intact, pt had brown emesis 100ml, pt educated on use of bed alarm and asked to call for assistance, pt verbalized understanding, call light in reach, bed in low position, bed alarm on, fall and aspiration precautions in place.
--- NOTE | 2017-12-18 08:02 | NUR ---
Pain Management/Medication pt complaint of pain 10/10 to left upper abdomen, pt educated on use and side effects of PRN pain medication, pt verbalized understanding, pt tolerated medication administration well, fall and aspiration precautions in place.
--- NOTE | 2017-12-18 08:14 | NUR ---
Nutrition Update Buddy Scale 17 noted. Pt admitted for gastroparesis Diet: [facility] diet BMI: 37.4 kg/m2 RD to follow per nutrition care standards.
[2017-12-18] MEDS ORDERED: hydrALAZINE HCL 25 MG TABLET PO SCH (09:00)
--- NOTE | 2017-12-18 09:26 | NUR ---
Gill MONDRAGON saw in AM labs critical value for creatinine 8.53, paged Dr. Jenkins, Dr. San covering, awaiting call back.
--- NOTE | 2017-12-18 09:32 | NUR ---
Spoke with MD Spoke with Dr. Jenkins, informed MD of critical lab results creatinine 8.53, informed MD that pt BP was 181/115 and that scheduled apresoline was given, orders for consult with Dr. Rojas, orders verified with telephone read back.
--- NOTE | 2017-12-18 10:15 | NUR ---
RN Rounds pt resting in bed, respirations even and unlabored, no acute distress noted, fall and aspiration precautions in place.
--- NOTE | 2017-12-18 11:07 | NUR ---
Pain Management/Medication pt complaint of pain 10/10 to left upper abdomen, pt educated on use and side effects of PRN pain medication, pt verbalized understanding, tolerated medication administration well, fall and aspiration precautions in place.
--- NOTE | 2017-12-18 11:16 | NUR ---
Blood Pressure/Medication pt BP 210/131, PRN catapres indicated, pt educated on use and side effects of PRN catapres, pt verbalized understanding, tolerated medication administration well, fall and aspiration precautions in place.
--- NOTE | 2017-12-18 11:36 | NUR ---
Blood glucose blood glucose 127, no insulin indicated per sliding scale, pt resting in bed, no acute distress noted, fall and aspiration precautions in place.
--- NOTE | 2017-12-18 11:45 | NUR ---
CONSULT CONSULT CALLED FOR: DR. WALE PINEDA STOCK DIGGER FOR DR. ECHEVARRIA I SPOKE WITH: SHIRLEY REASON FOR CONSULT: CREATININE 8.53 REQUESTING CONSULT: DR. PETERSON ANTICHECKING IRON WORKER PHONE: [phone]
[2017-12-18] MEDS ORDERED: DEXTROSE 50% JECT 50 ML DISP.SYRIN IVP PRN (12:15)
[2017-12-18] MEDS ORDERED: TIMOLOL MALEATE 0.5% OPHTHALMIC DROPS 5 ML BOTH EYES ONE (12:15)
[2017-12-18] MEDS ORDERED: ZOLPIDEM TARTRATE 5 MG TABLET PO PRN (12:15)
[2017-12-18] MEDS ORDERED: MAGNESIUM SULFATE 50 ML IV PRN (12:15)
[2017-12-18] MEDS ORDERED: DOCUSATE SODIUM 100 MG CAPSULE PO PRN (12:15)
[2017-12-18] MEDS ORDERED: ONDANSETRON HCL 4 MG/2 ML VIAL IVP PRN (12:15)
[2017-12-18] MEDS ORDERED: MUPIROCIN 2% TOPICAL OINTMENT 22 GM NS PRN (12:15)
[2017-12-18] MEDS ORDERED: BRIMONIDINE TARTRATE 0.2% 5 mL EYE DROPS BOTH EYES ONE (12:15)
[2017-12-18] MEDS ORDERED: ACETAMINOPHEN 325 MG TABLET PO PRN (12:15)
[2017-12-18] MEDS ORDERED: METOPROLOL TARTRATE 50 MG TABLET PO ONE (12:15)
[2017-12-18] MEDS ORDERED: POTASSIUM CHLORIDE 20 MEQ TAB.PRT.SR PO PRN (12:15)
[2017-12-18] MEDS ORDERED: METHOCARBAMOL 500 MG TABLET PO PRN (12:15)
[2017-12-18] MEDS ORDERED: CALCIUM ACETATE 667 MG CAP PO ONE (12:15)
[2017-12-18] MEDS ORDERED: INSULIN ASPART 100 UNITS/ML, 10 ML VIAL (NovoLOG) SUBCUT PRN (12:15)
[2017-12-18] MEDS ORDERED: GABAPENTIN 300 MG CAPSULE PO PRN (12:15)
--- NOTE | 2017-12-18 12:24 | NUR ---
MD Rounds Rounds with Dr. Jenkins, orders for SCDs, order verified with read back.
--- NOTE | 2017-12-18 12:26 | NUR ---
DC Planning: Per request, faxed dc summary and clinical review as of date 12/17/09 to BRENTON Rodriguez at [facility], fax# [phone], tel# [phone]. TVRN/BRENTON
[2017-12-18] MEDS ORDERED: PANTOPRAZOLE SODIUM 40 MG TAB PO ONE (12:30)
--- NOTE | 2017-12-18 12:36 | NUR ---
Blood Pressure pts BP reassessed, BP 222/134, HR 109, Dr. Jenkins informed, new orders received, orders verified with read back.
[2017-12-18] MEDS ORDERED: hydrALAZINE HCL 20 MG/ML VIAL IVP ONE (12:45)
[2017-12-18 12:46] LABS: FREE T4 (FREE THYROXINE) 0.7 ng/dL (0.6-1.6); THYROID STIMULATING HORMONE 0.63 uIu/mL (0.34-4.82)
--- NOTE | 2017-12-18 12:50 | NUR ---
Medication pt educated on medication use and side effects, pt verbalized understanding, tolerated medication administration well, no acute distress noted, per Dr. Jenkins fingerstick was a duplicate order and does not need to be repeated at this time, fall and aspiration precautions in place.
[2017-12-18] MEDS: LORazepam 2 MG/ML VIAL IVP PRN (13:12)
--- NOTE | 2017-12-18 13:15 | NUR ---
Anxiety/Medication pt complaint of anxiety, PRN ativan indicated, pt educated on medication use and side effects, pt verbalized understanding, tolerated medication administration well, no acute distress noted, pt complaint of feeling cold, temp 98.2, blanket provided, mother at bedside, fall and aspiration precautions in place.
--- NOTE | 2017-12-18 13:21 | NUR ---
GI CONSULT CALLED DR VARNER' EXCHANGE ([phone])SPOKE TO MARILUZ .INFORMED ABOUT GI CONSULT DR FUNEZ IS ONCALL.
--- NOTE | 2017-12-18 14:11 | NUR ---
Pain Management/Medication pt complaint of pain 9/10 to left upper abdomen, pt educated on use and side effects of PRN pain medication, pt verbalized understanding, tolerated medication administration well, no acute distress noted, fall and aspiration precautions in place.
[2017-12-18 14:14] LABS: BILIRUBIN,URINE NEGATIVE (NEGATIVE); BLOOD, URINE NEGATIVE (NEGATIVE); CLARITY/URINE CLEAR (CLEAR); COLOR,URINE YELLOW (YELLOW); GLUCOSE,URINE 2+ (NEGATIVE); KETONES,URINE NEGATIVE (NEGATIVE); LEUKOCYTE ESTERASE ,URINE NEGATIVE (NEGATIVE); NITRITE, URINE NEGATIVE (NEGATIVE); PROTEIN URINE 3+ (NEGATIVE); UROBILINOGEN,URINE 0.2 (0.2-1.0)
[2017-12-18 14:39] LABS: CANNABINOID, URINE POSITIVE (NEG <=50)
[2017-12-18 14:40] LABS: BARBITURATE, URINE NEGATIVE (NEG <=200); BENZODIAZEPINE, URINE POSITIVE (NEG <=150); COCAINE, URINE NEGATIVE (NEG <=150); METHAMPHETAMINES SCREEN,URINE NEGATIVE (NEG <=500); OPIATE, URINE POSITIVE (NEG <=100); PHENCYCLIDINE SCREEN,URINE NEGATIVE (NEG <=25); UR TRICYCLIC ANTIDEPRESSANTS NEGATIVE (NEG <=300); URINE AMPHETAMINE NEGATIVE (NEG <=500); URINE METHADONE NEGATIVE (NEG <=200); URINE OXYCODONE SCREEN NEGATIVE (NEG <=100); URINE PROPOXYPHENE SCREEN NEGATIVE (NEG <=300)
[2017-12-18 14:44] LABS: BACTERIA,URINE RARE /HPF (None Seen); RBC,URINE 0-3 /HPF (0-3); WBC,URINE 0-3 /HPF (0-3)
[2017-12-18 14:45] LABS: MUCUS,URINE None Seen /LPF (None Seen); YEAST,URINE None Seen /HPF (None Seen)
--- NOTE | 2017-12-18 14:45 | NUR ---
CONSULT CONSULT CALLED FOR: DR. SY I SPOKE TO: BERENICE REASON FOR CONSULT: ESRD REQUESTING CONSULT: DR. PETERSON PIPELINE SUPERINTENDENT DIVISION PHONE: [phone]
--- NOTE | 2017-12-18 15:40 | NUR ---
Spoke with MD Spoke with Dr. Krishnamurthy, covering for Dr. Bob MD aware of last dialysis monday, potassium 4.4, MD aware of consult.
[2017-12-18] MEDS: hydrALAZINE HCL 25 MG TABLET PO SCH ×2 (16:00→23:15)
--- NOTE | 2017-12-18 16:03 | NUR ---
Medications pt educated on medication use and side effects, pt verbalized understanding, tolerated medication administration well, no acute distress noted, mother at bedside, fall and aspiration precautions in place.
--- NOTE | 2017-12-18 17:04 | NUR ---
CONSULT CALLED TO TELL THAT CONSULT WAS CANCELLED FOR DR. SY. SPOKE TO WENDY AND SHE TOLD ME THAT ITS OK AND THAT WHO EVER THE DOCTOR IS SWITCHBOARD MANAGER WILL BE RECEIVING IT.
--- NOTE | 2017-12-18 17:17 | NUR ---
Pain Management/Medication/Notes pt complaint of pain 11/27 to left upper abdomen, pt educated on use and side effects of PRN pain medication, pt verbalized understanding, tolerated medication administration well, blood glucose 121, no insulin coverage indicated per sliding scale, pt NPO at this time awaiting US this PM, dialysis nurse at bedside, fall and aspiration precautions in place. Addendum: 12/18/17 at 1720 by Devora Sauer RN add: BP 179/106, HR 84
--- NOTE | 2017-12-18 18:37 | NUR ---
Spoke with MD Spoke with Dr. San, informed MD that pts most recent BP was 166/96, HR 79, pt currently receiving hemodialysis, informed MD that sepsis assessment was completed and pt meets severe sepsis risk, orders for lactic acid x1, orders verified with telephone read back.
--- NOTE | 2017-12-18 19:10 | NUR ---
Closing Note pt resting in bed, A&Ox4, respirations even and unlabored, pain controlled at this time, no acute distress noted, IV site clean, dry, intact, and infusing well, dialysis nurse at bedside, pt educated on use of call light and asked to call for assistance, pt verbalized understanding, call light in reach, bed in low position, bed alarm on, fall and aspiration precautions in place, care endorsed to Stephen SOUTH.
--- NOTE | 2017-12-18 19:36 | NUR ---
Initial note: Received handoff report from dayshift RN at patient's bedside. Patient is sleeping in bed, does not show signs or symptoms of acute distress. Patient's respirations unlabored with even chest rise and fall. Patient undergoing hemodialysis at this time via his right upper chest Quniton catheter; catheter dressing is clean, dry, intact. Dialysis nurse BRANNON Hall is at bedside. Patient also has a right FA 20 gauge IV receiving NS at 10 ML/HR; site is patent and benign. Safety and fall precautions in place. Call light is with patient. Will continue with plan of care.
[2017-12-18] MEDS ORDERED: HEPARIN SODIUM, PORCINE 10,000 UNITS/ 10 ML VIAL IV ONE (20:00)
--- NOTE | 2017-12-18 20:09 | NUR ---
US Abdomen rescheduled: Informed by radiology that abdominal ultrasound will be performed tomorrow 12/19/17 at 0800 as patient is currently undergoing dialysis. NPO status will start for patient at midnight.
--- NOTE | 2017-12-18 20:15 | NUR ---
Hemodialysis complete: Patient finished undergoing hemodialysis at this time. 3.4 ML of fluid removed per dialysis nurse BRANNON Hall. Patient's vitals are stable. Supplied 2 vials of heparin IVP 5000 units to dialysis nurse for post-dialysis use. Observed administration of heparin 5000 units by dialysis nurse through each port on Joao catheter; patient has 2 ports. Will monitor patient for bleeding.
[2017-12-18] MEDS ORDERED: HEPARIN SODIUM,PORCINE 5000 UNITS/ML VIAL IV ONE ×2 (20:30)
[2017-12-18] MEDS ORDERED: HEPARIN SODIUM,PORCINE 5000 UNITS/ML VIAL SUBCUT ONE ×2 (20:30)
--- NOTE | 2017-12-18 20:45 | NUR ---
Pain management: Patient complained of 9/10 abdominal pain. PRN Dilaudid 2 mg indicated. Educated patient regarding medication's indications and side effects, patient verbalized understanding. Administered medication per MD order. Safety and fall precautions in place, call light is with patient. Will reassess pain in 30 minutes.
[2017-12-18] MEDS: TIMOLOL MALEATE 0.5% OPHTHALMIC DROPS 5 ML BOTH EYES SCH (23:08)
[2017-12-18] MEDS: BRIMONIDINE TARTRATE 0.2% 5 mL EYE DROPS BOTH EYES SCH (23:08)
[2017-12-18] MEDS: LATANOPROST 2.5 ML DROPS (XALATAN) BOTH EYES SCH (23:10)
[2017-12-18] MEDS: METOPROLOL TARTRATE 50 MG TABLET PO SCH (23:15)
--- NOTE | 2017-12-18 23:33 | NUR ---
Elevated BP: Patient showed BP of 189/98. PRN Catapres indicated. Educated patient regarding indications and side effects of medication, patient verbalized understanding. Administered medication per MD order. Will continue to monitor patient.
[2017-12-18] MEDS: METOCLOPRAMIDE HCL 10 MG/2 ML VIAL IVP PRN (23:54)
--- NOTE | 2017-12-18 23:54 | NUR ---
Pain management/nausea: Patient complained of 9/10 abdominal pain and nausea. PRN Dilaudid 2 MG and PRN Reglan 10 MG indicated. Educated patient regarding medication, patient verbalized understanding. Administered medications per MD order. Safety and fall precautions in place, call light is with patient. Will continue monitoring.
--- NOTE | 2017-12-19 | NUR ---
NPO status in place: Patient now NPO for ordered abdominal ultrasound. Educated patient regarding NPO status, patient verbalized understanding.
[2017-12-19 00:51] VITALS: BP_SYST 148
[2017-12-19] MEDS: LORazepam 2 MG/ML VIAL IVP PRN ×5 (00:54→21:42)
--- NOTE | 2017-12-19 00:54 | NUR ---
Anxiety: Patient complained of feeling anxious. PRN Ativan IVP 1 MG indicated. Educated patient regarding medication indication and side effects. Administered medication per MD order. Call light is with patient, safety and fall precautions remain in place. Will continue to monitor.
[2017-12-19] MEDS: HYDROmorphone 2 MG/ML VIAL IVP PRN ×7 (03:04→21:29)
--- NOTE | 2017-12-19 03:04 | NUR ---
Pain management: Patient complained of 8/10 pain to abdomen. PRN Dilaudid 2 mg indicated. Education provided regarding medication's indications and side effects, patient verbalized understanding. Administered medication per MD order. Safety and fall precautions in place, call light is with patient. Will reassess pain in 30 minutes.
--- NOTE | 2017-12-19 05:01 | NUR ---
Rounds: Patient is asleep, no signs or symptoms of acute distress noted. Breathing even and unlabored. Safety and fall precautions in place. Will continue monitoring.
[2017-12-19 06:50] LABS: CALCIUM 8.6 mg/dL (8.4-11.0); CREATININE 6.89 mg/dL (0.55-1.30); PHOSPHORUS 7.3 mg/dL (2.7-4.5); POTASSIUM 4.4 mmol/L (3.5-5.1)
--- NOTE | 2017-12-19 06:59 | NUR ---
Closing note: Patient is sleeping in bed, no signs or symptoms of acute distress noted. Breathing is even and unlabored. All needs met and attended to. Will endorse care to dayshift RN.
[2017-12-19 07:13] LABS: BASOPHILS # (AUTO) 0.1 K/uL (0.0-0.2); BASOPHILS % (AUTO) 1.2 % (0.0-2.0); EOSINOPHILS % (AUTO) 0.2 % (0.0-4.0); HEMATOCRIT 29.2 % (36-54); HEMOGLOBIN 9.6 g/dL (14.0-18.0); LYMPHOCYTES # (AUTO) 2.4 K/uL (1.0-5.5); LYMPHOCYTES % (AUTO) 27.4 % (20.5-51.5); MEAN CORPUSCULAR HEMOGLOBIN 32 pg (27-31); MEAN CORPUSCULAR HGB CONC 33 % (32-36); MEAN CORPUSCULAR VOLUME 97 fL (79.0-98.0); MONOCYTES # (AUTO) 0.7 K/uL (0.0-1.0); MONOCYTES % (AUTO) 8.4 % (1.7-9.3); NEUTROPHILS # (AUTO) 5.7 K/uL (1.8-7.7); NEUTROPHILS % (AUTO) 62.8 % (40.0-70.0); PLATELET COUNT (AUTO) 276 K/uL (130-430); RED BLOOD CELL COUNT(AUTO) 3.01 MIL/uL (4.2-6.2); RED CELL DISTRIBUTION WIDTH 13.8 % (9.0-15.0); WHITE BLOOD COUNT (AUTO) 8.9 K/uL (4.8-10.8)
--- NOTE | 2017-12-19 07:39 | NUR ---
opening note pt asleep, equal chest rise noted. call light visibly within reach. bed alarm in place in lowest position. ivf infusing noted.
[2017-12-19 08:00] VITALS: BP_SYST 162
[2017-12-19] MEDS: PANTOPRAZOLE SODIUM 40 MG TAB PO SCH (09:06)
[2017-12-19] MEDS: hydrALAZINE HCL 25 MG TABLET PO SCH ×2 (09:06→16:49)
[2017-12-19] MEDS: METOPROLOL TARTRATE 50 MG TABLET PO SCH ×2 (09:07→21:39)
[2017-12-19 09:08] LABS: T4 (THYROXINE) 6.5 ug/dL (4.5-12.0)
[2017-12-19] MEDS: TIMOLOL MALEATE 0.5% OPHTHALMIC DROPS 5 ML BOTH EYES SCH ×2 (09:08→21:34)
[2017-12-19] MEDS: BRIMONIDINE TARTRATE 0.2% 5 mL EYE DROPS BOTH EYES SCH ×2 (09:09→21:35)
--- NOTE | 2017-12-19 09:17 | NUR ---
am meds pt c/o abd pain given Dilaudid as ordered. morning meds given. eye drops given as well. safety maintained.
[2017-12-19 10:04] VITALS: BP_SYST 143
[2017-12-19 11:04] VITALS: BP_SYST 155
--- NOTE | 2017-12-19 11:27 | NUR ---
blood sugar/ med pt c/o agitation- given ativan as ordered. bs- check no coverage needed
--- NOTE | 2017-12-19 12:22 | NUR ---
med pass pt c/o abd pain given Dilaudid as ordered. safety maintained. no distress noted.
[2017-12-19] MEDS: ONDANSETRON HCL 4 MG/2 ML VIAL IVP PRN (14:36)
--- NOTE | 2017-12-19 14:36 | NUR ---
nausea med pt c/o nausea given zofran ivp. no other distress noted.
[2017-12-19] MEDS: cloNIDine HCL 0.1 MG TABLET PO PRN ×3 (15:22→21:40)
--- NOTE | 2017-12-19 15:25 | NUR ---
BP MED/ PAIN MED PT GIVEN CLONIDINE FOR SYSTOLIC > 160 PT C/O ABD PAIN GIVEN DILAUID ORDERED. SAFETY MAINTAINED, NO DISTRESS NOTED.
[2017-12-19] MEDS: METOCLOPRAMIDE HCL 10 MG/2 ML VIAL IVP PRN (16:41)
--- NOTE | 2017-12-19 16:52 | NUR ---
PT COMPLAINED OF NAUSEA- GIVEN REGLAN. PT ALSO ALSO C/O AGITATION GIVEN ATIVAN. BLOOD SUGAR CHECKED NO COVERAGE NEEDED. PO HYDRALAZINE ALSO GIVEN.
--- NOTE | 2017-12-19 19:09 | NUR ---
closing note all need met through shift, safety maintained, will endorse care to night time babysitter.
--- NOTE | 2017-12-19 20:00 | NUR ---
INITIAL NOTES: PATIENT IN BED ,AWAKE ORIENTED X4.MOVES ALL EXTREMITIES BUT UNABLE TO GET UP AND WALK DUE TO WEAKNESS. MORBID OBESE.BP ELEVATED 199/115. REFUSE TO BE REPEATED. DENIES HEADACHE SOB NOR CHEST PAIN. HAS LOW CHRISTI AND ABDOMINAL PAIN. ASKING FOR PAIN MEDS. WILL GIVE IF DUE.IVF AT 10ML/HR TO RFA SITE SLIGHTLY TENDER. NO REDNESS.REFUSES SCD. BED ALARM ON. PARENTS AND OTHER RELATIVES AT BEDSIDE. SINUS RHYTHM ON TELEMONITOR. WILL MONITOR CLOSELY. PERMA CATH TO RIGHT UPPER CHEST DRESSINGS DRY AND INTACT LEGALLY BLIND. CALL LIGHT WITHIN REACH .BED IN LOW POSITION FOR SAFETY. OLD BUSTED BLISTER TO LIP DRY.
--- NOTE | 2017-12-19 21:00 | NUR ---
HYGIENE: ALL LINENS CHANGED . REFUSE BATH.
--- NOTE | 2017-12-19 21:30 | NUR ---
MEDS ADMIN/PAIN /ANXIETY MEDS. COMPLAIN OF LOW ABDOMINAL AND BACK PAIN, RATED 10/10. DILAUDID 2MG IV GIVEN. OTHER MEDS GIVEN WELL WITHOUT PROBLEM.
--- NOTE | 2017-12-19 21:45 | NUR ---
ANXIETY: PATIENT ANNXIOUS. PARENTS AT BEDSIDE. ATIVAN IV GIVEN.
[2017-12-19] MEDS: LATANOPROST 2.5 ML DROPS (XALATAN) BOTH EYES SCH (21:50)
--- NOTE | 2017-12-19 22:40 | NUR ---
NUTRITION: JELLO AND ICE CHIPS GIVEN FOR SNACK.
[2017-12-19] MEDS: NACL 0.9% 1,000 ML IV SCH (23:00)
[2017-12-20] VITALS (8 sets, daily range): BP systolic 141–191
--- NOTE | 2017-12-20 00:40 | NUR ---
PAIN: PATIENT COMPLAIN OF LOW ABDOMEN AND BACK PAIN. LEVEL 9/10. DILAUDID 2MG IV GIVEN SLOWLY.
[2017-12-20] MEDS: HYDROmorphone 2 MG/ML VIAL IVP PRN ×8 (00:42→22:36)
[2017-12-20] MEDS: hydrALAZINE HCL 25 MG TABLET PO SCH ×3 (01:08→17:15)
--- NOTE | 2017-12-20 01:30 | NUR ---
NEW IV LINE: CURRENT IV LINE LEAKING.GAUGE #22 ANGIOCATH INSERTED BY OUTSOLE TACKER JOSIE X1 ATTEMPT WITH BLOOD RETURN.
--- NOTE | 2017-12-20 01:40 | NUR ---
VOIDED FREELY VIA URINAL 100ML ONLY. WARM BLANKETS PROVIDED FOR COMFORT.
--- NOTE | 2017-12-20 04:19 | NUR ---
PAIN: CALLED FOR PAIN MED TO RIGHT AND LEFT UPPER QUADRANT. LEVEL 9/10. DILUADID 2MG IV GIVEN.
[2017-12-20] MEDS: cloNIDine HCL 0.1 MG TABLET PO PRN (04:36)
--- NOTE | 2017-12-20 04:36 | NUR ---
BP ELEVATION: BP 181/106. CLONIDINE 0.1MG PO GIVEN. DENIES HEADACHE.
[2017-12-20] MEDS: LORazepam 2 MG/ML VIAL IVP PRN ×4 (04:41→20:42)
--- NOTE | 2017-12-20 04:41 | NUR ---
ANXIETY/ NUTRITION: ATIVAN 1MG IV GIVEN. IV SITE CLEAR.
--- NOTE | 2017-12-20 06:35 | NUR ---
CLOSING: AL NEEDS WERE ATTENDED. NO ACUTE CARDIOPULMONARY DISTRESS WHOLE SHIFT. PAIN FAIRLY CONTROLLED BY DILAUDID IV WHICH HE ASK Q 3HRLY. HAS EPISODES OF ANXIETY RELIEVED BY ATIVAN. FOR HEMODIALYSIS THIS MORNING. NSG. PRODUCTION LINE WORKER HAS THE ORDER AND DID CALL HD RN. BP HAS BEEN ELEVATED CLONIDINE GIVEN X2. BLOOD SUGAR HAS BEEN WITHIN NORMAL LIMITS. HAS BEEN [id number] FOR SNACKS. COMFORTS GIVEN BY PROVIDING WARM BLANKETS EVERY TIME HE ASKS FOR IT. CALL LIGHT HAS BEEN NEAR BY. WILL GIVE REPORT TO AM RN FOR CONTINUITY OF CARE.
[2017-12-20 07:47] LABS: BASOPHILS # (AUTO) 0.1 K/uL (0.0-0.2); BASOPHILS % (AUTO) 0.8 % (0.0-2.0); EOSINOPHILS # (AUTO) 0.1 K/uL (0.0-0.4); EOSINOPHILS % (AUTO) 0.7 % (0.0-4.0); HEMATOCRIT 27.8 % (36-54); HEMOGLOBIN 8.9 g/dL (14.0-18.0); LYMPHOCYTES % (AUTO) 22.9 % (20.5-51.5); MEAN CORPUSCULAR HEMOGLOBIN 31 pg (27-31); MEAN CORPUSCULAR HGB CONC 32 % (32-36); MEAN CORPUSCULAR VOLUME 96 fL (79.0-98.0); MONOCYTES # (AUTO) 0.7 K/uL (0.0-1.0); NEUTROPHILS # (AUTO) 5.9 K/uL (1.8-7.7); NEUTROPHILS % (AUTO) 67.6 % (40.0-70.0); PLATELET COUNT (AUTO) 247 K/uL (130-430); RED BLOOD CELL COUNT(AUTO) 2.91 MIL/uL (4.2-6.2); RED CELL DISTRIBUTION WIDTH 13.8 % (9.0-15.0); WHITE BLOOD COUNT (AUTO) 8.8 K/uL (4.8-10.8)
--- NOTE | 2017-12-20 08:00 | NUR ---
INITIAL NOTE PT LAYING IN BED, NOTED TO BE ROCKING BACK AND FORTH, WHEN ASKED WHAT WAS WRONG, PT STATED HE WAS IN EXTREME PAIN, ADMINISTERED PAIN MEDICATION NOW. PT TOLERATED WELL, APPEARS MORE CALM NOW. BREATHING EVEN AND UNLABORED, IV TO RIGHT HAND INTACT, PT REFUSES TKO OF NS AT 10CC. PT REFUSES SCD PLACEMENT. BP ELEVATED, WILL HOLD AM BP MEDICATIONS UNTIL I SPEAK WITH MDS. PT AWARE AND AGREES. PT HAS DIALYSIS AND POSSIBLE DISCHARGE HOME. WILL FOLLOW UP. SAFETY PRECAUTIONS IN PLACE, CALL LIGHT WITHIN REACH.
[2017-12-20 08:18] LABS: CALCIUM 8.4 mg/dL (8.4-11.0); POTASSIUM 4.8 mmol/L (3.5-5.1)
[2017-12-20 08:28] LABS: CREATININE 8.47 mg/dL (0.55-1.30)
--- NOTE | 2017-12-20 08:53 | NUR ---
MD LOPEZ CALLED [facility] AT [phone]YUE KRISHNAMURTHY ANDREW PLASTIC DESIGN APPLIER.
[2017-12-20] MEDS: PANTOPRAZOLE SODIUM 40 MG TAB PO SCH (08:58)
[2017-12-20] MEDS: BRIMONIDINE TARTRATE 0.2% 5 mL EYE DROPS BOTH EYES SCH ×2 (09:02→20:48)
[2017-12-20] MEDS: TIMOLOL MALEATE 0.5% OPHTHALMIC DROPS 5 ML BOTH EYES SCH ×2 (09:03→20:49)
[2017-12-20] MEDS: METOPROLOL TARTRATE 50 MG TABLET PO SCH (09:09)
--- NOTE | 2017-12-20 09:10 | NUR ---
DR REAL SUPPLY CHAIN TECHNICIAN FOR DR SY MADE AWARE OF PT CRITICAL CR 8.47 SCHEDULED FOR DIALYSIS, NO NEW ORDER RECEIVED. ALSO MADE AWARE OF PT ELEVATED BP, AND PROTOCOL TO HOLD BP MEDICATION WHEN DIALYSIS IS SCHDULED. STATED OK TO GIVE AM BP MEDICATION AND MONITOR
[2017-12-20] MEDS ORDERED: cloNIDine HCL 0.2 MG TABLET PO PRN (10:30)
--- NOTE | 2017-12-20 10:35 | NUR ---
DR JUAREZ SHARMA, MADE AWARE OF BP ELEVATED 154/102 METOPROLOL ALREADY GIVEN, MD STATED TO ADMINISTER SCHEDULED HYDRALEZINE ALSO, AWARE OF DIALYSIS TODAY. WILL ADMINISTER
--- NOTE | 2017-12-20 11:10 | NUR ---
PAIN MANAGEMENT/ AM BP HYDRALAZINE GIVEN FOR CONTINUED ELEVATED BP/ BLOOD SUGAR 139
[2017-12-20] MEDS: ONDANSETRON HCL 4 MG/2 ML VIAL IVP PRN (12:10)
--- NOTE | 2017-12-20 13:00 | NUR ---
ATIVAN GIVEN IVP PER PT REQUEST, STATES THE ANTICIPATED PAIN GIVES HIM ANXIETY. WILL FOLLOW UP
--- NOTE | 2017-12-20 14:10 | NUR ---
PT WAS RESTING COMFORTABLY, PT AWAKENED FOR PAIN MEDICATION PER PT REQUEST AT BEGINING OF SHIFT TO ADMINISTER WHEN DUE. TOLERATED WELL, WILL FOLLOW UP
--- NOTE | 2017-12-20 15:53 | NUR ---
Discharge Planning: DCP faxed pt referral to [facility] (f [phone] p [phone]);Per [facility] pt accepted.
--- NOTE | 2017-12-20 16:00 | NUR ---
PT REFUSED DIALYSIS, STATING HE WOULD NOT START UNTIL HIS NEXT PAIN SHOT WAS GIVEN, PT EDUCATED THAT IT WSNT DUE UNTIL 1700 AND HE WAS SCHEDULED FOR DISCHARGE AFTER DIALYSIS. PT VERBALIZED UNDERSTANDING AND STATED IT WAS FINE I GUESS. ATTEMPTING TO LOCATE DIALYSIS NURSE AGAIN.
--- NOTE | 2017-12-20 16:56 | NUR ---
MD LOPEZ CALLED [facility] SPECIAL[facility] AT [phone] SPOKE WITH EXCHANGE, CHRISTINA HAMILTON POSTAL SUPERVISOR.
--- NOTE | 2017-12-20 17:00 | NUR ---
DIALYSIS START/ PAIN MANAGEMENT/ BP MEDICATION HYDRALAZINE GIVEN BP ELEVATED IN 190'S SYSTOLIC AT BEGINNING OF DIALYSIS
[2017-12-20] MEDS: METOCLOPRAMIDE HCL 10 MG/2 ML VIAL IVP PRN (17:10)
[2017-12-20] MEDS ORDERED: HEPARIN SODIUM,PORCINE 5000 UNITS/ML VIAL MC ONE (18:45)
--- NOTE | 2017-12-20 19:00 | NUR ---
CLOSING NOTE PT LAYING IN BED, RECEIVING DIALYSIS. CALM, NO S/S OF ACUTE DISTRESS. BP 181/96, STILL ELEVATED. PER DIALYSIS NURSE, WOULD LIKE TO WAIT FOR BP MEDICATION. PT TO BE DISCHARGED TONIGHT AFTER DIALYSIS. PT AND DIALYSIS NURSE AWARE.
--- NOTE | 2017-12-20 19:20 | NUR ---
INITIAL NOTES: PATIENT IN BED AWAKE ORIENTED X3. HAVING HEMODIALYSIS TREATMENT ,ASKING FOR PAIN MED .AM RN TOLD HIM HAD A DOSE AT 1720HR.
--- NOTE | 2017-12-20 20:03 | NUR ---
PAIN: PATIENT COMPLAIN OF ABDOMINAL PAIN. DILAUDID 2MG IV GIVEN.
--- NOTE | 2017-12-20 20:10 | NUR ---
HEMODIALYSIS TREATMENT COMPLETED. OUTPUT 4 LITERS PER REPORT FROM HD RN.
--- NOTE | 2017-12-20 20:25 | NUR ---
ANXIETY: ANXIOUS DUE TO GOING HOME SOON.ATIVAN 1MG IV GIVEN.
--- NOTE | 2017-12-20 20:45 | NUR ---
MEDS ADMIN/ NUTRITION: ALL DUE MEDS GIVEN. WARMING FOOD TO BE ABLE TO EAT.
[2017-12-20] MEDS: LATANOPROST 2.5 ML DROPS (XALATAN) BOTH EYES SCH (20:47)
[2017-12-20] MEDS ORDERED: METOPROLOL TARTRATE 50 MG TABLET PO SCH (21:00)
--- NOTE | 2017-12-20 21:10 | NUR ---
BP 141/82 TEMP 97.9 HR 83 SAT 95% RR 18. DISCHARGED CARE PLAN S COMPLETED BY BRANNON MURILLO.
--- NOTE | 2017-12-20 22:00 | NUR ---
MOTHER HERE TO ACCOMPANY PATIENT HOME.
--- NOTE | 2017-12-20 22:35 | NUR ---
DISCONTINUE SALINE LOCK.NEEDLE INTACT. PRESSURE DRESSING APPLIED. NO BLEEDING.
--- NOTE | 2017-12-20 22:40 | NUR ---
MOTHER SIGNED DISCHARGED INSTRUCTIONS AND CARE PLAN. PATIENT LEGALLY BLIND. DISCUSSED INSTRUCTION TO PATIENT AND MOTHER WITH UNDERSTANDING.
--- NOTE | 2017-12-20 22:45 | NUR ---
ALL BELONGINGS ACCOUNTED FOR.
--- NOTE | 2017-12-20 22:45 | NUR ---
GAVE HOME [facility]: CALLED [facility] #[phone] .TO TALK TO DEXTER Holm
--- NOTE | 2017-12-20 23:10 | NUR ---
DISCHARGED NOTES: PATIENT DISCHARGED IN GOOD CONDITION. AWAKE ALERT ORIENTED X4. ALL PERTINENT DISCHARGE INSTRUCTIONS PAPERS .PRESCRIPTION. TOLD PATIENT AND MOTHER TO CALL PRIMARY MD FOR FOLLOW UP APPOINTMENT AND REMINDED DIALYSIS DAYS ARE MONDAY/MONDAY AND MONDAY. WITH UNDERSTANDING .WHEELED PATIENT BY CANDIDA LENTZ TO PRIVATE CAR WITH MOTHER.
== END 2017-12-20 11:05 | disposition home health service (06) | DRG 682 ==
LOC: SED 20:32 → STU 22:55
PROVIDERS: ADMIT Family Medicine; ATTEND Family Medicine
PROC: 5A1D70Z Performance of Urinary Filtration, Intermittent, Less than 6 Hours Per Day (ICD-10-PCS; principal; 2017-12-18)
PROC: 5A1D70Z Performance of Urinary Filtration, Intermittent, Less than 6 Hours Per Day (ICD-10-PCS; 2017-12-20)
DX: N17.0 Acute kidney failure with tubular necrosis (principal); I50.43 Acute on chronic combined systolic (congestive) and diastolic (congestive) heart failure; E87.1 Hypo-osmolality and hyponatremia; I13.2 Hypertensive heart and chronic kidney disease with heart failure and with stage 5 chronic kidney disease, or end stage renal disease; F11.20 Opioid dependence, uncomplicated; E11.43 Type 2 diabetes mellitus with diabetic autonomic (poly)neuropathy; N18.6 End stage renal disease; K31.84 Gastroparesis; I10 Essential (primary) hypertension; E87.5 Hyperkalemia; E11.22 Type 2 diabetes mellitus with diabetic chronic kidney disease; E11.319 Type 2 diabetes mellitus with unspecified diabetic retinopathy without macular edema; E66.01 Morbid (severe) obesity due to excess calories; D63.1 Anemia in chronic kidney disease; E83.39 Other disorders of phosphorus metabolism; H54.8 Legal blindness, as defined in USA; K21.9 Gastro-esophageal reflux disease without esophagitis; F32.9 Major depressive disorder, single episode, unspecified; G89.29 Other chronic pain; Z68.39 Body mass index [BMI] 39.0-39.9, adult; Z91.19 Patient's noncompliance with other medical treatment and regimen; Z99.2 Dependence on renal dialysis; Z88.5 Allergy status to narcotic agent; Z88.8 Allergy status to other drugs, medicaments and biological substances; Z79.84 Long term (current) use of oral hypoglycemic drugs; Z79.899 Other long term (current) drug therapy
CPT/HCPCS: 36415; 71045; 76700-TC; 80048; 80053; 80307; 81000-TC; 82140-TC; 82150-TC; 82962; 83605; 83690-TC; 83735-TC; 83880; 84100-TC; 84436; 84439; 84443-TC; 84479; 84480; 85025; 87040-TC; 87081; 87086; 90935; 96374; 96375; 96376; 99285; J0360; J1170; J1644; J1815; J2060; J2405; J2765; J3010; J7030; J7040; J7050

== ENCOUNTER 2017-12-24 03:51 | Emergency (ER) | payer OTHER, MEDICAID ==
[~2017-12-24] VITALS: Ht 177.8 cm; Wt 104.3 kg
--- NOTE | 2017-12-24 04:00 | NUR ---
Patient to ER bed 5 to gown for evaluation. Side rails up. Report given to Hunter SOUTH.
[2017-12-24 04:03] VITALS: BP_SYST 183; BP_SYST 227
--- NOTE | 2017-12-24 04:05 | NUR ---
Patient ambulatory to ED accompanied by friend with c/o ABD pain. Describes sudden onset of sharp 10/10 upper ABD pain that does not radiate. Patient recently seen in ED for same problem. Took 1mg dilauded at 2200 with no relief. +N/V. ABD non-distended and non-tender. Skin is cool and diaphoretic. Afebrile. Dialysis MWF. Access to left upper chest.
--- NOTE | 2017-12-24 04:10 | NUR ---
ED Kwaw at bedside for medical evaluation.
[2017-12-24] MEDS ORDERED: NACL 0.9% 500 ML IV ONE (04:15)
[2017-12-24] MEDS ORDERED: KETOROLAC TROMETHAMINE 30 MG VIAL IVP ONE (04:15)
[2017-12-24] MEDS ORDERED: HALOPERIDOL LACTATE 5 MG/ML VIAL IVP ONE (04:15)
--- NOTE | 2017-12-24 04:32 | NUR ---
# 22 gauge angiocath placed to right forearm. Use of asceptic technique. Opsite placed over site. Blood return noted. Blood for lab drawn from site. Flushed with 10 cc of normal saline. No evidence of infiltration noted. Patient tolerated well.
[2017-12-24 04:56] LABS: CALCIUM 9.6 mg/dL (8.4-11.0)
[2017-12-24 05:03] LABS: ALBUMIN 3.9 g/dL (3.4-4.8); TOTAL BILIRUBIN 0.5 mg/dL (0.0-1.0)
[2017-12-24 05:09] LABS: CREATININE 8.43 mg/dL (0.55-1.30)
--- NOTE | 2017-12-24 05:40 | NUR ---
ED Kwaw at bedside reassessing patient.
[2017-12-24 06:00] VITALS: BP_SYST 211
--- NOTE | 2017-12-24 06:00 | NUR ---
Patient given written and verbal discharge instructions and verbalizes understanding. ER MD discussed with patient the results and treatment provided. Patient in stable condition. ID arm band removed. IV catheter removed intact and dressing applied, no active bleeding. No Rx given. Patient educated on pain management and to follow up with PMD. Pain Scale 4/10 tolerable for patient. Opportunity for questions provided and answered. Medication side effect fact sheet provided.
== END 2017-12-24 06:00 | disposition home or self-care (01) ==
LOC: SED 03:51
DX: Z76.5 Malingerer [conscious simulation] (principal); E11.40 Type 2 diabetes mellitus with diabetic neuropathy, unspecified; E11.29 Type 2 diabetes mellitus with other diabetic kidney complication; E11.43 Type 2 diabetes mellitus with diabetic autonomic (poly)neuropathy; N28.9 Disorder of kidney and ureter, unspecified; K31.84 Gastroparesis; I10 Essential (primary) hypertension; Z88.6 Allergy status to analgesic agent; Z79.899 Other long term (current) drug therapy
CPT/HCPCS: 36415; 80053; 96361; 96374; 96375; 99284; J1630; J1885; J7030

== ENCOUNTER 2018-01-17 13:07 | Emergency (ER) | payer OTHER, MEDICAID ==
[~2018-01-17] VITALS: Ht 177.8 cm; Wt 104.3 kg
[2018-01-17 13:15] VITALS: BP_SYST 153
[2018-01-17] MEDS ORDERED: fentaNYL CITRATE/PF 100 MCG/2 ML AMP IVP ONE (14:15)
[2018-01-17 14:48] LABS: BASOPHILS # (AUTO) 0.1 K/uL (0.0-0.2); BASOPHILS % (AUTO) 0.7 % (0.0-2.0); EOSINOPHILS % (AUTO) 0.3 % (0.0-4.0); HEMATOCRIT 41.1 % (36-54); HEMOGLOBIN 13.2 g/dL (14.0-18.0); LYMPHOCYTES # (AUTO) 1.3 K/uL (1.0-5.5); LYMPHOCYTES % (AUTO) 10.3 % (20.5-51.5); MEAN CORPUSCULAR HEMOGLOBIN 32 pg (27-31); MEAN CORPUSCULAR HGB CONC 32 % (32-36); MEAN CORPUSCULAR VOLUME 99 fL (79.0-98.0); MONOCYTES # (AUTO) 0.6 K/uL (0.0-1.0); MONOCYTES % (AUTO) 4.9 % (1.7-9.3); NEUTROPHILS # (AUTO) 10.7 K/uL (1.8-7.7); NEUTROPHILS % (AUTO) 83.8 % (40.0-70.0); PLATELET COUNT (AUTO) 292 K/uL (130-430); RED BLOOD CELL COUNT(AUTO) 4.15 MIL/uL (4.2-6.2); RED CELL DISTRIBUTION WIDTH 15.8 % (9.0-15.0); WHITE BLOOD COUNT (AUTO) 12.7 K/uL (4.8-10.8)
[2018-01-17 14:57] LABS: CALCIUM 9.7 mg/dL (8.4-11.0); CREATININE 5.39 mg/dL (0.55-1.30); POTASSIUM 5.1 mmol/L (3.5-5.1)
[2018-01-17 15:01] LABS: ALBUMIN 3.9 g/dL (3.4-4.8); TOTAL BILIRUBIN 0.5 mg/dL (0.0-1.0)
[2018-01-17] MEDS ORDERED: FAMOTIDINE PF 20 MG/2 ML VIAL IVP ONE (15:45)
[2018-01-17] MEDS ORDERED: DIPHENHYDRAMINE INJ 50 MG/ML VIAL IVP ONE (15:45)
[2018-01-17] MEDS ORDERED: HALOPERIDOL LACTATE 5 MG/ML VIAL IVP ONE (15:45)
[2018-01-17 16:05] VITALS: BP_SYST 188
== END 2018-01-17 16:05 | disposition home or self-care (01) ==
LOC: SED 13:07
DX: E11.43 Type 2 diabetes mellitus with diabetic autonomic (poly)neuropathy (principal); K31.84 Gastroparesis; E11.40 Type 2 diabetes mellitus with diabetic neuropathy, unspecified; I12.0 Hypertensive chronic kidney disease with stage 5 chronic kidney disease or end stage renal disease; E11.22 Type 2 diabetes mellitus with diabetic chronic kidney disease; N18.6 End stage renal disease; Z99.2 Dependence on renal dialysis; Z88.5 Allergy status to narcotic agent; Z88.8 Allergy status to other drugs, medicaments and biological substances; Z79.899 Other long term (current) drug therapy
CPT/HCPCS: 36415; 80053; 83690; 85025; 96374; 96375; 99284; J1200; J1630; J3010; J3490

== ENCOUNTER 2018-02-19 01:05 | Inpatient (IN) | payer OTHER, MEDICAID ==
[~2018-02-19] VITALS: Ht 177.8 cm; Wt 116.6 kg
[2018-02-19 01:20] VITALS: BP_SYST 201
--- NOTE | 2018-02-19 01:20 | NUR ---
Pt BIB BLS, placed to ER bed 04, to gown and engine monitor. 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 Pt dialyzes MWF, scheduled to go to access center for cath replacement today.
[2018-02-19] MEDS ORDERED: DICYCLOMINE HCL 20 MG/2 ML AMP IM ONE (01:30)
[2018-02-19] MEDS ORDERED: KETOROLAC TROMETHAMINE 30 MG VIAL IVP ONE (01:30)
[2018-02-19] MEDS ORDERED: ONDANSETRON HCL 4 MG/2 ML VIAL IVP ONE (01:30)
[2018-02-19] MEDS ORDERED: HALOPERIDOL LACTATE 5 MG/ML VIAL IVP ONE (01:30)
--- NOTE | 2018-02-19 01:35 | NUR ---
Dr. Maldonado at bedside.
--- NOTE | 2018-02-19 02:05 | NUR ---
# 20 gauge angiocath placed to LFA. Use of asceptic technique. Opsite placed over site. Blood return noted. Blood for lab drawn from site. Flushed with 10 cc of normal saline. No evidence of infiltration noted. Patient tolerated well.
--- NOTE | 2018-02-19 02:10 | NUR ---
B/P 216/116. Dr. Maldonado made aware. Pt medciated with Clonidine 0.2 mg PO. Addendum: 02/19/18 at 0433 by FOUZIA Diego c/o C/P or SOB. No N/V noted.
[2018-02-19] MEDS ORDERED: cloNIDine HCL 0.1 MG TABLET PO ONE (02:15)
[2018-02-19 02:21] LABS: BASOPHILS % (AUTO) 0.2 % (0.0-2.0); EOSINOPHILS % (AUTO) 0.1 % (0.0-4.0); HEMATOCRIT 36.2 % (36-54); HEMOGLOBIN 11.5 g/dL (14.0-18.0); LYMPHOCYTES # (AUTO) 1.4 K/uL (1.0-5.5); LYMPHOCYTES % (AUTO) 9.8 % (20.5-51.5); MEAN CORPUSCULAR HEMOGLOBIN 31 pg (27-31); MEAN CORPUSCULAR HGB CONC 32 % (32-36); MEAN CORPUSCULAR VOLUME 96 fL (79.0-98.0); MONOCYTES # (AUTO) 0.5 K/uL (0.0-1.0); MONOCYTES % (AUTO) 3.7 % (1.7-9.3); NEUTROPHILS # (AUTO) 12.2 K/uL (1.8-7.7); NEUTROPHILS % (AUTO) 86.2 % (40.0-70.0); PLATELET COUNT (AUTO) 334 K/uL (130-430); RED BLOOD CELL COUNT(AUTO) 3.76 MIL/uL (4.2-6.2); RED CELL DISTRIBUTION WIDTH 14.4 % (9.0-15.0); WHITE BLOOD COUNT (AUTO) 14.1 K/uL (4.8-10.8)
[2018-02-19 02:33] LABS: CALCIUM 8.9 mg/dL (8.4-11.0)
[2018-02-19 02:42] LABS: ALBUMIN 3.5 g/dL (3.4-4.8); TOTAL BILIRUBIN 0.4 mg/dL (0.0-1.0)
[2018-02-19 02:45] LABS: POTASSIUM 6.3 mmol/L (3.5-5.1)
[2018-02-19] MEDS ORDERED: ALBUTEROL SULFATE 0.083% 2.5 MG/3 ML VIAL.NEB INH ONE (02:45)
[2018-02-19] MEDS ORDERED: DEXTROSE 50% JECT 50 ML DISP.SYRIN IVP ONE (02:45)
[2018-02-19] MEDS ORDERED: INSULIN REGULAR, HUMAN 100 UNITS/ML, 10 ML VIAL (novoLIN R) SUBCUT PRN (02:45)
[2018-02-19] MEDS ORDERED: SODIUM POLYSTYRENE SULFONATE 15 GM/60 ML UDBTL PO ONE (02:45)
[2018-02-19 02:47] LABS: CREATININE 10.38 mg/dL (0.55-1.30)
--- NOTE | 2018-02-19 02:50 | NUR ---
B/P 212/116, P 87. Dr. Maldonado made aware. Pt medicated with Hydralazine 20 mg IVP. Addendum: 02/19/18 at 0433 by FOUZIA Diego c/o C/P or SOB. No N/V noted.
--- NOTE | 2018-02-19 02:56 | NUR ---
Pt resting quietly, easily awakened. No c/o pain or discomfort at this time. Mother at bedside, no needs verbalized
[2018-02-19] MEDS ORDERED: hydrALAZINE HCL 20 MG/ML VIAL IVP ONE (03:00)
--- NOTE | 2018-02-19 03:10 | NUR ---
RT at bedside to administer Neb Tx.
[2018-02-19] MEDS ORDERED: SODIUM POLYSTYRENE SULFONATE 15 GM/60 ML UDBTL ONE ×2 (03:17→03:48)
[2018-02-19] MEDS ORDERED: HYDROmorphone 1 MG INJ. 1 MG/ML AMPUL IVP PRN (03:30)
--- NOTE | 2018-02-19 04:05 | NUR ---
ADMIT NOTE Received pt from ER to the floor with a diagnosis of HYPERKALEMIA. Admission process initiated. patient oriented to pain management, safety and call light-teach back done.
--- NOTE | 2018-02-19 04:10 | NUR ---
Patient will be admitted to care of Dr. Hill. Admitted to Tele unit. Will go to room 100. Belongings list completed. Summary report printed. Bedside report given to receiving RN.
[2018-02-19 04:16] VITALS: BP_SYST 149
--- NOTE | 2018-02-19 04:37 | NUR ---
CONSULT REASON FOR CONSULT: RENAL FAILURE PERSON I SPOKE WITH: JIM PRITCHETT CONSULTING PHYSICIAN: DR. SY SVP [employer] PHONE NUMBER: [phone] ORDERING PHYSICIAN: DR. MAXWELL
[2018-02-19] MEDS: HYDROmorphone 1 MG INJ. 1 MG/ML AMPUL IVP PRN ×6 (04:50→23:47)
--- NOTE | 2018-02-19 05:17 | NUR ---
initial notes: pt is lethargic but able to answer question completely. stable vital sign bp is at 149/63. sinus rhythm at monitor. no sob, not distress. no fever. pt has iv site to left forearm gauge 20-patent and intact. pt has permacath to right chest- due for dressing change. pt is due also for dialysis today. pt complain of abdominal pain. no skin issue. discuss to pt and mother poc and about pain medication. they agree and verbalized understanding. safety on, side railsup x 2 lowest abed position. mother stay at bed side. needs attended. call light in reach. will continue to monitor.
--- NOTE | 2018-02-19 07:12 | NUR ---
closing: pt is resting in bed, stable. pt already had a bm due to kayaxalate given from e.r. mother at the bed side. call light in reach. low bed position. bedside report given to am rn.
--- NOTE | 2018-02-19 08:00 | NUR ---
OPENING NOTE: RECEIVED REPORT FROM NIGHT NURSE. PATIENT IS RESTING COMFORTABLY IN BED. NO S/S OF DISTRESS OR SOB. PATIENT IS ALERT AND ORIENTED, ABLE TO EXPRESS NEEDS, AND ASK FOR ASSISTANCE. VITAL SIGNS WNL. ASSESSMENT COMPLETE. IV IS PATENT AND SALINE LOCKED. CALL LIGHT IN REACH, BED IN LOWEST POSITION, AND WILL CONTINUE TO MONITOR.
[2018-02-19 09:04] VITALS: BP_SYST 139
[2018-02-19] MEDS ORDERED: NS 100 ML BAG ONE (09:45)
[2018-02-19] MEDS ORDERED: PROPOFOL 200MG/ 20ML VIAL (DIPRIVAN) IV ONE ×2 (09:45→13:35)
[2018-02-19] MEDS ORDERED: NS 1000 ML IV.SOLN IV ONE ×2 (09:45→13:35)
[2018-02-19] MEDS ORDERED: CEFAZOLIN 2 GM IVPB PREMIX 50 ML IV ONE (09:45)
--- NOTE | 2018-02-19 10:00 | NUR ---
RN ROUNDS PATIENT IS RESTING COMFORTABLY IN BED. NO S/S OF DISTRESS OR SOB. PATIENT IS ALERT AND ORIENTED, NO NEW NEEDS AT THIS TIME. CALL LIGHT NI REACH, BED IN LOWEST POSITION, AND WILL CONTINUE TO MONITOR.
--- NOTE | 2018-02-19 10:53 | NUR ---
CONSULTATION CALLED REASON FOR CONSULTATION:PERMCATH PLACEMENT WAS CONSULT CALLED?Y PERSON WHO WAS NOTIFIED:GRISEL NINA CONSULTING PHYSICIAN:GRISEL NINA PIE BAKER SPECIALTY:SURGEON PIE BAKER PHONE NUMBER:[phone] ORDERING PHYSICIAN:[facility]
--- NOTE | 2018-02-19 12:00 | NUR ---
RN ROUNDS PATIENT IS RESTING COMFORTABLY IN BED. NO S/S OF DISTRESS OR SOB. PATIENT IS ALERT AND ORIENTED, NO NEEDS AT THIS TIME. CALL LIGHT IN REACH, BED IN LOWEST POSITION, AND WILL CONTINUE TO MONITOR.
[2018-02-19 12:10] VITALS: BP_SYST 121
--- NOTE | 2018-02-19 13:10 | NUR ---
DIALYSIS PATIENT CURRENTLY IN DIALYSIS.
[2018-02-19] MEDS ORDERED: HEPARIN SODIUM,PORCINE 5000 UNITS/ML VIAL SUBCUT ONE (13:35)
[2018-02-19] MEDS ORDERED: MIDAZOLAM HCL 5 MG/5 ML VIAL IVP ONE (13:35)
[2018-02-19] MEDS ORDERED: HEPARIN SODIUM,PORCINE 5000 UNITS/ML VIAL MC ONE (14:15)
--- NOTE | 2018-02-19 14:26 | NUR ---
RN ROUNDS PATIENT STILL IN DIALYSIS. TOLERATING WELL. CALL LIGHT IN REACH, BED IN LOWEST POSITION, AND WILL CONTINUE TO MONITOR.
--- NOTE | 2018-02-19 15:39 | NUR ---
PERMACATH CHANGE DR. HOPE WILL CHANGE THE PERMACATH TOMORROW AT 10AM. CONTINUE DIET FOR DINNER AND NPO AT MIDNIGHT.
--- NOTE | 2018-02-19 15:54 | NUR ---
DIALYSIS COMPLETE 3L OUT.
--- NOTE | 2018-02-19 16:30 | NUR ---
RN ROUNDS PATIENT IS RESTING COMFORTABLY IN BED. NO S/S OF DISTRESS OR SOB. PATIENT AWARE THAT PERMACATH REPLACEMENT HAPPENING TOMORROW. REQUESTED FOOD UNTIL DINNER COMES. NO OTHER NEEDS AT THIS TIME. CALL LIGHT IN REACH, BED IN LOWEST POSITION, AND WILL CONTINUE TO MONITOR.
[2018-02-19 16:45] VITALS: BP_SYST 149
[2018-02-19] MEDS ORDERED: METOCLOPRAMIDE HCL 10 MG TABLET PO PRN (17:00)
--- NOTE | 2018-02-19 17:30 | NUR ---
PAIN MEDICATION PRN PAIN MEDICATION GIVEN PER REQUEST. PATIENT VERBALIZED UNDERSTANDING OF SIDE EFFECTS AND THE USE OF THE CALL LIGHT FOR ASSISTANCE. CALL LIGHT IN REACH, BED IN LOWEST POSITION, AND WILL CONTINUE TO MONITOR.
[2018-02-19] MEDS ORDERED: ONDANSETRON 4 MG ODT TAB PO PRN (18:15)
[2018-02-19] MEDS ORDERED: HYDROcodone/ACETAMIN 10-325 MG TAB PO PRN (18:15)
[2018-02-19] MEDS ORDERED: GABAPENTIN 300 MG CAPSULE PO PRN (18:15)
--- NOTE | 2018-02-19 18:30 | NUR ---
CLOSING NOTE: PATIENT IS RESTING COMFORTABLY IN BED. NO S/S OF DISTRESS OR SOB. PATIENT IS ALERT AND ORIENTED, ABLE TO EXPRESS NEEDS, AND ASK FOR ASSISTANCE. PAIN MANAGED DURING SHIFT. ALL NEEDS MET. SAFETY PRECAUTIONS IN PLACE. CALL LIGHT IN REACH, BED IN LOWEST POSITION, AND WILL GIVE REPORT TO NIGHT NURSE.
--- NOTE | 2018-02-19 19:54 | NUR ---
Initial note: Received handoff report from dayshift RN. Patient is awake, resting in bed. Alert and oriented x4. No signs or symptoms of acute distress noted. Tolerating room air, breathing is even and unlabored. IV noted to patient's left forearm, site is patent and benign. Bed is locked in lowest position, side rails raised x2, bed alarm on. Call light is with patient, instructed patient to use call light for any needs, understanding verbalized. Will continue with plan of care.
[2018-02-19 20:13] VITALS: BP_SYST 141
[2018-02-19] MEDS: METOPROLOL TARTRATE 50 MG TABLET PO SCH (20:18)
[2018-02-19] MEDS: BRIMONIDINE TARTRATE 0.2% 5 mL EYE DROPS BOTH EYES SCH (20:19)
[2018-02-19] MEDS: LATANOPROST 2.5 ML DROPS (XALATAN) BOTH EYES SCH (20:20)
[2018-02-19] MEDS: INSULIN REGULAR, HUMAN 100 UNITS/ML, 10 ML VIAL (novoLIN R) SUBCUT PRN (20:21)
[2018-02-19] MEDS: TIMOLOL MALEATE 0.5% OPHTHALMIC DROPS 5 ML BOTH EYES SCH (20:22)
--- NOTE | 2018-02-19 20:33 | NUR ---
Pain management: Patient complained of abdominal pain 11/27. PRN Dilaudid 0.5 MG indicated. Educated patient regarding indication and side effects, patient verbalized understanding. Administered medication intravenously per MD order, patient tolerated well. Call light is with patient. Safety and fall precautions in place. Will reassess pain.
--- NOTE | 2018-02-19 22:28 | NUR ---
Rounds: Patient is resting in bed with eyes closed, no signs or symptoms of acute distress noted. Breathing is even and unlabored on room air. Call light is with patient. Safety, fall precautions in place. Will continue to monitor.
--- NOTE | 2018-02-20 | NUR ---
NPO: Patient is now NPO. Patient verbalized understanding regarding NPO status. Call light is with patient. Will continue monitoring.
--- NOTE | 2018-02-20 01:33 | NUR ---
Rounds: Patient is resting in bed with eyes closed, does not show signs or symptoms of acute distress. Call light is with patient, safety and fall precautions in place. Will continue to monitor.
--- NOTE | 2018-02-20 01:36 | NUR ---
NOTE PRN MEDICATION FOR PAIN GIVEN FOR PATIENT'S COMPLIANT OF SEVERE PAIN. PATIENT IS STABLE, NO SIGNS OF RESPIRATORY DISTRESS. CALL LIGHT WITHIN REACH. BED IS LOCKED, ALARMED, AND AT THE LOWEST LEVEL. Addendum: 02/21/18 at 1018 by Virgilio Joel RN NOTE INTENDED FOR A DIFFERENT TIME.
[2018-02-20] MEDS: HYDROmorphone 1 MG INJ. 1 MG/ML AMPUL IVP PRN ×7 (03:02→21:33)
--- NOTE | 2018-02-20 03:02 | NUR ---
Pain management: Patient complained of severe abdominal pain. PRN Dilaudid 0.5 MG indicated. Educated patient regarding medication's indications and side effects, patient verbalized understanding. Administered medication intravenously per MD order. Safety and fall precautions in place. Call light is with patient. Will reassess pain.
--- NOTE | 2018-02-20 04:55 | NUR ---
Rounds: Patient is asleep in bed, no signs or symptoms of acute distress. Call light is with patient. Safety and fall precautions in place. Will continue to monitor patient.
[2018-02-20 06:11] VITALS: BP_SYST 149
[2018-02-20] MEDS: ONDANSETRON HCL 4 MG/2 ML VIAL IVP PRN (06:37)
--- NOTE | 2018-02-20 06:45 | NUR ---
Closing note: Patient is in bed sleeping, no acute distress noted. Patient recently medicated with PRN Zofran for nausea/vomiting, and PRN Dilaudid for severe abdominal pain. Most recent blood glucose was 117, no insulin coverage provided per sliding scale. Call light is with patient. Safety, fall precautions observed throughout shift.. Will endorse care to dayshift RN.
[2018-02-20 07:37] LABS: BASOPHILS % (AUTO) 0.1 % (0.0-2.0); EOSINOPHILS # (AUTO) 0.1 K/uL (0.0-0.4); EOSINOPHILS % (AUTO) 0.6 % (0.0-4.0); HEMATOCRIT 35.1 % (36-54); HEMOGLOBIN 11.4 g/dL (14.0-18.0); LYMPHOCYTES # (AUTO) 1.8 K/uL (1.0-5.5); LYMPHOCYTES % (AUTO) 18.9 % (20.5-51.5); MEAN CORPUSCULAR HEMOGLOBIN 31 pg (27-31); MEAN CORPUSCULAR HGB CONC 33 % (32-36); MEAN CORPUSCULAR VOLUME 96 fL (79.0-98.0); MONOCYTES # (AUTO) 0.6 K/uL (0.0-1.0); MONOCYTES % (AUTO) 6.8 % (1.7-9.3); NEUTROPHILS % (AUTO) 73.6 % (40.0-70.0); PLATELET COUNT (AUTO) 313 K/uL (130-430); RED BLOOD CELL COUNT(AUTO) 3.64 MIL/uL (4.2-6.2); RED CELL DISTRIBUTION WIDTH 14.6 % (9.0-15.0); WHITE BLOOD COUNT (AUTO) 9.5 K/uL (4.8-10.8)
[2018-02-20 07:52] LABS: CALCIUM 8.7 mg/dL (8.4-11.0); POTASSIUM 5.1 mmol/L (3.5-5.1)
[2018-02-20 08:00] VITALS: BP_SYST 149; BP_SYST 161
--- NOTE | 2018-02-20 08:00 | NUR ---
Patient is A/Ox4. Blind. iv on left FA, #22, SL. permacath on right upper chest. Mom at bedside. Call light in place, bed locked at the lowest position, POC is explained. Will continue to monitor.
[2018-02-20 08:09] LABS: CREATININE 9.99 mg/dL (0.55-1.30)
[2018-02-20 08:12] LABS: PROTHROMBIN TIME 10.4 SECS (9.5-12.5)
[2018-02-20] MEDS: BRIMONIDINE TARTRATE 0.2% 5 mL EYE DROPS BOTH EYES SCH ×2 (08:57→21:40)
[2018-02-20] MEDS: TIMOLOL MALEATE 0.5% OPHTHALMIC DROPS 5 ML BOTH EYES SCH ×2 (08:57→21:41)
--- NOTE | 2018-02-20 09:40 | NUR ---
Patient to surgery. consent forms signed. CHG bath is provided.
[2018-02-20] MEDS ORDERED: ONDANSETRON HCL 4 MG/2 ML VIAL IVP PRN (10:45)
[2018-02-20] MEDS ORDERED: fentaNYL CITRATE/PF 100 MCG/2 ML AMP IVP PRN ×2 (10:45)
[2018-02-20] MEDS: LABETALOL 100 MG/ 20ML VIAL IVP PRN ×2 (10:55→11:05)
[2018-02-20] MEDS ORDERED: LABETALOL 100 MG/ 20ML VIAL ONE (10:59)
[2018-02-20] MEDS ORDERED: fentaNYL CITRATE/PF 100 MCG/2 ML AMP ONE (11:11)
--- NOTE | 2018-02-20 11:35 | NUR ---
patient has returned from surgery. Blood sugar 135. No coverage needed.
[2018-02-20] MEDS: PANTOPRAZOLE SODIUM 40 MG TAB PO SCH (11:37)
[2018-02-20] MEDS: METOPROLOL TARTRATE 50 MG TABLET PO SCH ×2 (11:38→21:27)
--- NOTE | 2018-02-20 13:45 | NUR ---
Patient care is transferred to BRANNON Crowley. Report is given.
--- NOTE | 2018-02-20 14:00 | NUR ---
RN Note Took over care from Gustavo SOUTH. Patient is in stable condition. HD is due for today.
[2018-02-20 14:18] VITALS: BP_SYST 161
[2018-02-20 16:00] VITALS: BP_SYST 164
--- NOTE | 2018-02-20 16:10 | NUR ---
Rounds Patient is resting in bed. No signs of distress noted at the moment,
--- NOTE | 2018-02-20 18:50 | NUR ---
Closing Note Patient is currently getting dialysis. Medicated the patient for pain. Will reassess. Call light is within reach and bed is in low position. Will endorse care to the oncoming nurse.
[2018-02-20 19:46] VITALS: BP_SYST 125
--- NOTE | 2018-02-20 19:47 | NUR ---
INITIAL NOTE AT INITIAL ASSESSMENT, PATIENT IS STABLE, NO SIGNS OF RESPIRATORY DISTRESS. PATIENT VERBALIZES TOLERABLE PAIN AT THIS TIME. HE IS GETTING HEMODIALYSIS. PLAN OF CARE FOR THE EVENING IS COMMUNICATED WITH THE PATIENT. CALL LIGHT- TEACH BACK IS SUCCESSFUL. BED IS LOCKED, ALARMED, AND AT THE LOWEST LEVEL. FALL AND SAFETY PRECAUTIONS WILL BE IN PLACE THROUGHOUT THE SHIFT.
[2018-02-20] MEDS: INSULIN REGULAR, HUMAN 100 UNITS/ML, 10 ML VIAL (novoLIN R) SUBCUT PRN (21:40)
[2018-02-20] MEDS: LATANOPROST 2.5 ML DROPS (XALATAN) BOTH EYES SCH (21:41)
--- NOTE | 2018-02-20 21:43 | NUR ---
PAIN NOTE PRN MEDICATION FOR PAIN GIVEN FOR PATIENT'S COMPLIANT OF SEVERE PAIN. PATIENT IS STABLE, NO SIGNS OF RESPIRATORY DISTRESS. BLOOD SUGAR CHECK AT THIS TIME COVERED BY INSULIN PER SSI ORDERED BY MD. CALL LIGHT WITHIN REACH. BED IS LOCKED, ALARMED, AND AT THE LOWEST LEVEL.
--- NOTE | 2018-02-20 23:40 | NUR ---
NOTE PATIENT IS SLEEPING, STABLE, NO SIGNS OF RESPIRATORY DISTRESS. CALL LIGHT WITHIN REACH. BED IS LOCKED, ALARMED, AND AT THE LOWEST LEVEL.
[2018-02-21] MEDS: HYDROmorphone 1 MG INJ. 1 MG/ML AMPUL IVP PRN ×8 (00:40→21:46)
[2018-02-21 00:48] VITALS: BP_SYST 145
--- NOTE | 2018-02-21 01:36 | NUR ---
NOTE PRN MEDICATION FOR PAIN GIVEN FOR PATIENT'S COMPLIANT OF SEVERE PAIN. PATIENT IS STABLE, NO SIGNS OF RESPIRATORY DISTRESS. CALL LIGHT WITHIN REACH. BED IS LOCKED, ALARMED, AND AT THE LOWEST LEVEL.
--- NOTE | 2018-02-21 05:32 | NUR ---
NOTE PATIENT IS SLEEPING, STABLE, NO SIGNS OF RESPIRATORY DISTRESS. CALL LIGHT WITHIN REACH. BED IS LOCKED, ALARMED, AND AT THE LOWEST LEVEL.
[2018-02-21] MEDS: ONDANSETRON HCL 4 MG/2 ML VIAL IVP PRN ×3 (06:29→21:46)
--- NOTE | 2018-02-21 06:48 | NUR ---
CLOSING NOTE PATIENT IS STABLE, NO SIGNS OF RESPIRATORY DISTRESS. BLOOD SUGAR CHECK AT THIS TIME REQUIRES NO INSULIN COVERAGE PER SSI ORDERED BY MD. CALL LIGHT WITHIN REACH. BED IS LOCKED, ALARMED, AND AT THE LOWEST LEVEL. FALL AND SAFETY PRECAUTIONS HAVE BEEN IN PLACE THROUGHOUT THE SHIFT. WILL CONTINUE TO MONITOR UNTIL SHIFT REPORT IS GIVEN AT BEDSIDE TO AM NURSE.
[2018-02-21 07:35] LABS: BASOPHILS % (AUTO) 0.3 % (0.0-2.0); EOSINOPHILS % (AUTO) 0.5 % (0.0-4.0); HEMATOCRIT 34.4 % (36-54); HEMOGLOBIN 10.9 g/dL (14.0-18.0); LYMPHOCYTES # (AUTO) 1.6 K/uL (1.0-5.5); LYMPHOCYTES % (AUTO) 17.5 % (20.5-51.5); MEAN CORPUSCULAR HEMOGLOBIN 30 pg (27-31); MEAN CORPUSCULAR HGB CONC 32 % (32-36); MEAN CORPUSCULAR VOLUME 95 fL (79.0-98.0); MONOCYTES # (AUTO) 0.6 K/uL (0.0-1.0); MONOCYTES % (AUTO) 7.1 % (1.7-9.3); NEUTROPHILS # (AUTO) 6.7 K/uL (1.8-7.7); NEUTROPHILS % (AUTO) 74.6 % (40.0-70.0); PLATELET COUNT (AUTO) 296 K/uL (130-430); RED CELL DISTRIBUTION WIDTH 14.5 % (9.0-15.0); WHITE BLOOD COUNT (AUTO) 8.9 K/uL (4.8-10.8)
[2018-02-21 08:14] LABS: ALBUMIN 3.1 g/dL (3.4-4.8); CALCIUM 8.7 mg/dL (8.4-11.0); POTASSIUM 5.3 mmol/L (3.5-5.1); TOTAL BILIRUBIN 0.4 mg/dL (0.0-1.0)
--- NOTE | 2018-02-21 08:18 | NUR ---
OPENING NOTE: RECEIVED REPORT FROM NIGHT NURSE. PATIENT IS SLEEPING COMFORTABLY IN BED. NO S/S OF DISTRESS OR SOB. PATIENT IS ALERT AND ORIENTED, ABLE TO EXPRESS NEEDS, AND ASK FOR ASSISTANCE. IV PATENT AND SALINE LOCKED. SAFETY PRECAUTIONS IN PLACE. CALL LIGHT IN REACH, BED IN LOWEST POSITION, AND WILL CONTINUE TO MONITOR.
[2018-02-21 08:27] LABS: CREATININE 9.18 mg/dL (0.55-1.30)
[2018-02-21 09:00] VITALS: BP_SYST 205
[2018-02-21] MEDS: PANTOPRAZOLE SODIUM 40 MG TAB PO SCH (09:01)
[2018-02-21] MEDS: BRIMONIDINE TARTRATE 0.2% 5 mL EYE DROPS BOTH EYES SCH ×2 (09:02→21:53)
[2018-02-21] MEDS: TIMOLOL MALEATE 0.5% OPHTHALMIC DROPS 5 ML BOTH EYES SCH ×2 (09:03→21:52)
[2018-02-21] MEDS: METOPROLOL TARTRATE 50 MG TABLET PO SCH ×2 (09:09→21:51)
--- NOTE | 2018-02-21 09:43 | NUR ---
PAIN MEDICATION MEDICATED PER PRN ORDER. PATIENT EDUCATED ON MEDICATION SIDE EFFECTS. PATIENT INSTRUCTED TO USE CALL LIGHT TO CALL FOR ASSISTANCE WHEN WANTING TO GET UP. PATIENT VERBALIZED UNDERSTANDING. CALL LIGHT IN REACH, BED IN LOWEST POSITION, AND WILL CONTINUE TO MONITOR.
--- NOTE | 2018-02-21 10:10 | NUR ---
RN ROUNDS PATIENT IS RESTING COMFORTABLY IN BED. NO S/S OF DISTRESS OR SOB. PATIENT IS ALERT AND ORIENTED. PAIN CONTROLLED. NO NEEDS AT THIS TIME. CALL LIGHT IN REACH, BED IN LOWEST POSITION, AND WILL CONTINUE TO MONITOR.
--- NOTE | 2018-02-21 10:38 | NUR ---
Nutrition Update Buddy Scale 17 noted. Pt admitted for hyperkalemia. Diet: renal, CCHO BMI: 40.6 kg/m2 RD to follow per nutrition care standards.
[2018-02-21 10:51] VITALS: BP_SYST 161
[2018-02-21] MEDS: INSULIN REGULAR, HUMAN 100 UNITS/ML, 10 ML VIAL (novoLIN R) SUBCUT PRN (11:54)
--- NOTE | 2018-02-21 12:00 | NUR ---
RN ROUNDS PATIENT IS RESTING COMFORTABLY IN BED. NO S/S OF DISTRESS OR SOB. PATIENT IS ALERT AND ORIENTED, ABLE TO EXPRESS NEEDS, AND ASK FOR ASSISTANCE. NO NEEDS EXPRESSED AT THIS TIME. CALL LIGHT IN REACH, BED IN LOWEST POSITION, AND WILL CONTINUE TO MONITOR.
--- NOTE | 2018-02-21 14:00 | NUR ---
RN ROUNDS PATIENT IS RESTING COMFORTABLY IN BED. NO S/S OF DISTRESS OR SOB. PATIENT IS ALERT AND ORIENTED. NO NEEDS EXPRESSED. PATIENT RECENTLY MEDICATED FOR PAIN. CALL LIGHT IN REACH, BED IN LOWEST POSITION, AND WILL CONTINUE TO MONITOR.
--- NOTE | 2018-02-21 14:26 | NUR ---
Dietitian Recommendations * Recommend continuing renal, CCHO diet per LP, RD Please refer to Nutrition Assessment for details.
--- NOTE | 2018-02-21 15:55 | NUR ---
PAIN MEDICATION PATIENT MEDICATED ACCORDING TO ORDER. EDUCATED ON SIDE EFFECTS AND CALLING FOR ASSISTANCE. PATIENT VERBALIZED UNDERSTANDING. NO OTHER NEEDS AT THIS TIME. CALL LIGHT IN REACH, BED IN LOWEST POSITION, AND WILL CONTINUE TO MONITOR.
[2018-02-21 16:59] VITALS: BP_SYST 167
--- NOTE | 2018-02-21 18:19 | NUR ---
CLOSING NOTE: PATIENT IS STARTING DIALYSIS. PATIENT IS ALERT AND ORIENTED, ABLE TO EXPRESS NEEDS AND ASK FOR ASSISTANCE. ALL NEEDS MET DURING SHIFT. CALL LIGHT IN REACH, BED IN LOWEST POSITION, AND WILL GIVE REPORT TO NIGHT NURSE.
--- NOTE | 2018-02-21 19:40 | NUR ---
ROUNDS PATIENT IN BED, NOT IN DISTRESS, VITALS STABLE, DENIES ANY PAIN AT THIS TIME. HEMODIALYSIS ONGOING, TOLERATING WELL. ASSESSMENT DONE AND DOCUMENTED. SEE FLOWSHEET. NEEDS ATTENDED TO. SAFETY MEASURES IN PLACED. CALL LIGHT PLACED WITHIN REACH.
--- NOTE | 2018-02-21 21:00 | NUR ---
MEDICATION DUE MEDICATIONS GIVEN SCHEDULED, TOLERATED WELL. WILL CONTINUE TO MONITOR.
[2018-02-21] MEDS: LATANOPROST 2.5 ML DROPS (XALATAN) BOTH EYES SCH (21:52)
[2018-02-22 00:13] VITALS: BP_SYST 126
--- NOTE | 2018-02-22 00:15 | NUR ---
PATIENT RESTING: Patient resting quietly. No acute distress noted. Vital signs within normal range.
[2018-02-22] MEDS: HYDROmorphone 1 MG INJ. 1 MG/ML AMPUL IVP PRN ×8 (00:41→22:13)
--- NOTE | 2018-02-22 04:13 | NUR ---
PATIENT RESTING: Patient resting quietly. No acute distress noted. Vital signs within normal range.
--- NOTE | 2018-02-22 06:56 | NUR ---
CLOSING NOTES PATIENT RESTING IN BED, VITALS STABLE, NO MORE PAIN AT THIS TIME. ALL NEEDS ATTENDED TO. SAFETY MEASURES MAINTAINED. CALL LIGHT PLACED WITHIN REACH.
[2018-02-22 07:33] LABS: POTASSIUM 4.8 mmol/L (3.5-5.1)
[2018-02-22 07:41] LABS: CREATININE 8.69 mg/dL (0.55-1.30)
--- NOTE | 2018-02-22 07:55 | NUR ---
OPENING NOTE: MORNING REPORT WAS TAKEN FROM SOW FARM BARN TECHNICIAN NURSE. PATIENT ALERT AND ORIENTED X4. PATIENT COMPLAINING OF NAUSEA. PATIENT ON 2L NC NOT COMPLAINING OF SHORTNESS OF BREATH. PATIENT NOT COMPLAINING OF CONSTIPATION. BED ALARM IS ON AND CALL LIGHT IS IN REACH. SIDE RAILS UP AND BED IN LOWEST POSITION. ORIENTED PATIENT TO ROOM. WILL CONTINUE TO MONITOR.
[2018-02-22 08:04] VITALS: BP_SYST 213
[2018-02-22] MEDS: ONDANSETRON HCL 4 MG/2 ML VIAL IVP PRN ×2 (08:23→20:02)
[2018-02-22] MEDS: METOPROLOL TARTRATE 50 MG TABLET PO SCH ×2 (08:30→22:16)
[2018-02-22] MEDS: PANTOPRAZOLE SODIUM 40 MG TAB PO SCH (08:31)
[2018-02-22] MEDS: TIMOLOL MALEATE 0.5% OPHTHALMIC DROPS 5 ML BOTH EYES SCH ×2 (08:32→22:18)
[2018-02-22] MEDS: BRIMONIDINE TARTRATE 0.2% 5 mL EYE DROPS BOTH EYES SCH ×2 (08:33→22:18)
--- NOTE | 2018-02-22 10:10 | NUR ---
NOTE: RECHECKED PATIENT'S BLOOD PRESSURE AND WAS 186/126. GAVE PRN BLOOD PRESSURE MEDICATION.
[2018-02-22] MEDS: cloNIDine HCL 0.1 MG TABLET PO PRN (10:25)
--- NOTE | 2018-02-22 11:30 | NUR ---
NOTE: CHECKED PATIENT'S BLOOD PRESSURE AND WENT DOWN TO 163/117. WILL CONTINUE TO MONITOR.
[2018-02-22 12:01] VITALS: BP_SYST 163
--- NOTE | 2018-02-22 13:01 | NUR ---
PATIENT WAS COMPLAINING OF PAIN. GAVE PATIENT PAIN MEDICATION. ALL BELONGINGS WITH IN REACH. WILL CONTINUE TO MONITOR.
--- NOTE | 2018-02-22 15:42 | NUR ---
ENDORSED CARE TO DANIEL
[2018-02-22 17:11] VITALS: BP_SYST 133
--- NOTE | 2018-02-22 17:44 | NUR ---
Blood Sugar assessed, no insulin coverage needed at this time, patient provided with ice chips, no other needs at this time, educated patient on use of call light for assistance, verbalized understanding, call light and bedside table left within reach, will continue to monitor patient
--- NOTE | 2018-02-22 19:20 | NUR ---
Closing Note patient requested pain medication,. administered per protocol, educated him regarding med, verbalized understanding, site remains patent, family at bedside, no other needs at this time, educated patient on use of call light for assistance, verbalized understanding, call light and bedside table left within reach, endorsed to building maintenance mechanic nurse
--- NOTE | 2018-02-22 19:45 | NUR ---
ROUNDS PATIENT RESTING COMFORTABLY IN BED, NOT IN DISTRESS, VITALS STABLE. ASSESSMENT DONE AND DOCUMENTED. SEE FLOWSHEET. NEEDS ATTENDED TO. SAFETY MEASURES MAINTAINED. CALL LIGHT PLACED WITHIN REACH.
--- NOTE | 2018-02-22 21:15 | NUR ---
MEDICATION DUE MEDICATIONS GIVEN SCHEDULED, TOLERATED WELL. WILL CONTINUE TO MONITOR.
[2018-02-22] MEDS: LATANOPROST 2.5 ML DROPS (XALATAN) BOTH EYES SCH (22:19)
[2018-02-23 00:24] VITALS: BP_SYST 180
[2018-02-23] MEDS: HYDROmorphone 1 MG INJ. 1 MG/ML AMPUL IVP PRN ×8 (01:18→21:46)
--- NOTE | 2018-02-23 02:15 | NUR ---
ROUNDS PATIENT ASLEEP, NOT IN DISTRESS, NO PAIN AND DISCOMFORT NOTED. WILL CONTINUE TO MONITOR.
[2018-02-23] MEDS: ONDANSETRON HCL 4 MG/2 ML VIAL IVP PRN ×2 (03:27→09:06)
--- NOTE | 2018-02-23 04:15 | NUR ---
PATIENT RESTING: Patient resting quietly. No acute distress noted. Vital signs within normal range.
--- NOTE | 2018-02-23 06:01 | NUR ---
PATIENT RESTING: Patient resting quietly. No acute distress noted. Vital signs within normal range.
--- NOTE | 2018-02-23 06:55 | NUR ---
CLOSING NOTES PATIENT JUST GIVEN PAIN MEDICATION, ALL NEEDS ATTENDED TO. SAFETY AND FALL PRECAUTION MEASURES MAINTAINED. BED IN LOW AND LOCKED POSITION. CALL LIGHT PLACED WITHIN REACH.
--- NOTE | 2018-02-23 07:57 | NUR ---
OPENING NOTE: RECEIVED REPORT FROM NIGHT NURSE. PATIENT IS RESTING COMFORTABLY IN BED. NO S/S OF DISTRESS OR SOB. PATIENT IS ALERT AND ORIENTED, ABLE TO EXPRESS NEEDS, AND ASK FOR ASSISTANCE. IV PATENT AND SALINE LOCKED. PATIENT RECENTLY MEDICATED FOR PAIN. CALL LIGHT IN REACH, BED IN LOWEST POSITION, AND WILL CONTINUE TO MONITOR.
[2018-02-23 08:05] VITALS: BP_SYST 180
[2018-02-23] MEDS: TIMOLOL MALEATE 0.5% OPHTHALMIC DROPS 5 ML BOTH EYES SCH ×2 (09:08→21:38)
[2018-02-23] MEDS: PANTOPRAZOLE SODIUM 40 MG TAB PO SCH (09:08)
[2018-02-23] MEDS: BRIMONIDINE TARTRATE 0.2% 5 mL EYE DROPS BOTH EYES SCH ×2 (09:09→21:38)
[2018-02-23] MEDS: METOPROLOL TARTRATE 50 MG TABLET PO SCH ×2 (09:17→21:34)
--- NOTE | 2018-02-23 10:00 | NUR ---
RN ROUNDS PATIENT IS RESTING IN BED. NO S/S OF DISTRESS OR SOB. PATIENT COMPLAINING OF ABDOMINAL DISCOMFORT. PRN MEDICATIONS BEING GIVING. CALL LIGHT IN REACH, BED IN LOWEST POSITION, AND WILL CONTINUE TO MONITOR.
--- NOTE | 2018-02-23 10:30 | NUR ---
DIALYSIS LILLIAN, DIALYSIS NURSE, AT BEDSIDE.
--- NOTE | 2018-02-23 10:49 | NUR ---
TRAINING LEAD SOAP DRIER OPERATOR, DR PINEDA WAS PAGED PER REQUEST OF HD NURSE LILLIAN. SPOKE TO GABRIEL
[2018-02-23] MEDS: cloNIDine HCL 0.1 MG TABLET PO PRN (11:29)
--- NOTE | 2018-02-23 11:30 | NUR ---
ELEVATED BLOOD PRESSURE BLOOD PRESSURE IN THE 200'S PER DIALYSIS NURSE. PRN CATAPRES GIVEN. WILL CONTINUE TO MONITOR.
[2018-02-23 12:02] VITALS: BP_SYST 204
[2018-02-23] MEDS ORDERED: COMMUNICATION ORDER XX ONE (13:15)
[2018-02-23] MEDS ORDERED: HEPARIN SODIUM,PORCINE 5000 UNITS/ML VIAL IV ONE ×2 (13:30)
--- NOTE | 2018-02-23 13:30 | NUR ---
RN ROUNDS PATIENT IS RESTING COMFORTABLY IN BED. NO S/S OF DISTRESS OR SOB. PATIENT IS ALERT AND ORIENTED. 3L OUT FROM DIALYSIS. BLOOD PRESSURE IS STABLE. NO OTHER NEEDS AT THE TIME. CALL LIGHT IN REACH, BED IN LOWEST POSITION, AND WILL CONTINUE TO MONITOR.
--- NOTE | 2018-02-23 15:21 | NUR ---
RN ROUNDS PATIENT IS RESTING COMFORTABLY IN BED. NO S/S OF DISTRESS OR SOB. PATIENT IS ALERT AND ORIENTED, ABLE TO EXPRESS NEEDS AND ASK FOR ASSISTANCE. NO NEEDS AT THIS TIME. CALL LIGHT IN REACH, BED IN LOWEST POSITION, AND WILL CONTINUE TO MONITOR.
[2018-02-23 16:02] VITALS: BP_SYST 159
--- NOTE | 2018-02-23 18:00 | NUR ---
CLOSING NOTE: PATIENT IS RESTING COMFORTABLY IN BED. NO S/S OF DISTRESS OR SOB. PATIENT IS ALERT AND ORIENTED, ABLE TO EXPRESS NEEDS, AND ASK FOR ASSISTANCE. NO NEEDS AT THIS TIME. CALL LIGHT IN REACH, BED IN LOWEST POSITION, AND WILL CONTINUE TO MONITOR.
[2018-02-23] MEDS: INSULIN REGULAR, HUMAN 100 UNITS/ML, 10 ML VIAL (novoLIN R) SUBCUT PRN (18:04)
[2018-02-23 21:30] VITALS: BP_SYST 129
[2018-02-23] MEDS: LATANOPROST 2.5 ML DROPS (XALATAN) BOTH EYES SCH (21:37)
--- NOTE | 2018-02-23 21:46 | NUR ---
PAIN: PATIENT CALLED REQUESTING FOR HIS PAIN MEDICINE. DILAUDID 1MG IV GIVEN. VITAL SIGNS TAKEN. MOTHER AT BEDSIDE. PATIENT TALKING TO FRIEND VIA CELL PHONE.DENIES SOB .
[2018-02-24] VITALS (8 sets, daily range): BP systolic 107–215
[2018-02-24] MEDS: HYDROmorphone 1 MG INJ. 1 MG/ML AMPUL IVP PRN ×8 (00:56→22:05)
--- NOTE | 2018-02-24 00:56 | NUR ---
PAIN: PATIENT CALLED FOR PAIN MED. PATIENT TALKING TO FRIEND VIA CELL PHONE. CALL LIGHT WITHIN REACH. DENIES SOB. PAIN LEVEL 8/10 TO BACK AND ABDOMEN. DILAUDID 1MG IV GIVEN,
--- NOTE | 2018-02-24 04:05 | NUR ---
pain: patient called x2 for pain med. dilaudid 1mg iv given. denies sob nor distress. had jello,crackers and juice given by iron plastic bullet maker for snacks.
--- NOTE | 2018-02-24 06:50 | NUR ---
CLOSING/PAIN: PATIENT CALLED X3 FOR PAIN MED.TOLD PATIENT NOT DUE BUT CONTINUE TO CALL. MEDICATED WITH DILAUDID I MG IV. HAS USED OXYGEN 2 LITERS PER N/C.HAD BEEN ASKING FOR JUICES/SANDWICHES,SOUP. TEA.COKE DURING THE SHIFT. DENIES SOB.EDUCATED ON FLUID RESTRICTIONS DUE TO ESRD BUT DENIES DRINKING MORE FLUIDS. PER MATH CATH TO RIGHT UPPER CHEST DRESSING DRY AND INTACT.SAFETY PRECAUTION OBSERVED.
[2018-02-24 07:57] LABS: BASOPHILS % (AUTO) 0.4 % (0.0-2.0); EOSINOPHILS # (AUTO) 0.1 K/uL (0.0-0.4); HEMATOCRIT 32.3 % (36-54); LYMPHOCYTES # (AUTO) 1.9 K/uL (1.0-5.5); LYMPHOCYTES % (AUTO) 16.7 % (20.5-51.5); MEAN CORPUSCULAR HEMOGLOBIN 32 pg (27-31); MEAN CORPUSCULAR HGB CONC 34 % (32-36); MEAN CORPUSCULAR VOLUME 93 fL (79.0-98.0); MONOCYTES # (AUTO) 0.7 K/uL (0.0-1.0); MONOCYTES % (AUTO) 6.4 % (1.7-9.3); NEUTROPHILS # (AUTO) 8.5 K/uL (1.8-7.7); NEUTROPHILS % (AUTO) 75.5 % (40.0-70.0); PLATELET COUNT (AUTO) 286 K/uL (130-430); RED BLOOD CELL COUNT(AUTO) 3.46 MIL/uL (4.2-6.2); RED CELL DISTRIBUTION WIDTH 14.4 % (9.0-15.0); WHITE BLOOD COUNT (AUTO) 11.2 K/uL (4.8-10.8)
--- NOTE | 2018-02-24 08:00 | NUR ---
AM NOTES Patient laying in bed awake, alert, orientedx4. No s/s of SOB. IV site patent, intact, dressing is dry. Bed in lowest position, call light within reach. Addendum: 02/24/18 at 1540 by Mela Phillips RN AM NOTES ADDITION Patient encouraged to use incentive spirometer. Patient able to reach [phone].
[2018-02-24 08:07] LABS: CALCIUM 8.7 mg/dL (8.4-11.0)
[2018-02-24 08:13] LABS: CREATININE 10.76 mg/dL (0.55-1.30); POTASSIUM 5.8 mmol/L (3.5-5.1)
[2018-02-24] MEDS: PANTOPRAZOLE SODIUM 40 MG TAB PO SCH (09:12)
[2018-02-24] MEDS: METOPROLOL TARTRATE 50 MG TABLET PO SCH ×2 (09:13→22:09)
[2018-02-24] MEDS: TIMOLOL MALEATE 0.5% OPHTHALMIC DROPS 5 ML BOTH EYES SCH ×2 (09:13→22:12)
[2018-02-24] MEDS: BRIMONIDINE TARTRATE 0.2% 5 mL EYE DROPS BOTH EYES SCH ×2 (09:15→22:11)
[2018-02-24] MEDS: ONDANSETRON HCL 4 MG/2 ML VIAL IVP PRN (09:15)
--- NOTE | 2018-02-24 09:26 | NUR ---
MORNING MEDICATIONS All PO and optic medications administered. Patient complains of nausea, Zofran IVP given. Will cont. to monitor.
--- NOTE | 2018-02-24 10:00 | NUR ---
PAIN Patient complains of severe abdominal pain. Dilaudid 1mg given IVP. Will cont. to monitor.
--- NOTE | 2018-02-24 11:45 | NUR ---
ACCUCHECK Blood glucose level 137. No insulin coverage need per sliding scale. Will cont. to monitor.
[2018-02-24] MEDS: cloNIDine HCL 0.1 MG TABLET PO PRN (12:21)
--- NOTE | 2018-02-24 12:22 | NUR ---
HIGH BLOOD PRESSURE PRN Catapres given for BP of 200/104. Will continue to monitor.
--- NOTE | 2018-02-24 14:00 | NUR ---
BLOOD PRESSURE RECHECK Patients blood pressure is 139/89 after receiving PRN clonidine. Will cont. to monitor.
--- NOTE | 2018-02-24 15:00 | NUR ---
NEPHRO PAGED Dr. Martins aware of abnormal potassium levels and increased blood pressure. STAT Hemodialysis ordered.
--- NOTE | 2018-02-24 15:58 | NUR ---
PAIN Patient complains of severe abdominal pain. Dilaudid 1mg given IVP. Will cont to monitor.
--- NOTE | 2018-02-24 16:30 | NUR ---
DIALYSIS cleaner assistant at bedside.
--- NOTE | 2018-02-24 17:00 | NUR ---
ACCUCHECK Blood glucose level 131. No insulin coverage needed per sliding scale.
--- NOTE | 2018-02-24 18:09 | NUR ---
CLOSING NOTES Patient in bed, awake, alert, oriented. No s/s of distress or SOB. All need met throughout shift. Right upper chest Permacath site patent, dressing is dry, no s/s of infiltration or infection. IV site patent, intact. Safety and fall precautions maintained throughout shift. Bed in lowest position, call light within reach. Will endorse to oncoming RN.
--- NOTE | 2018-02-24 18:40 | NUR ---
PAIN Patient complains of severe abdominal pain. Dilaudid 1mg given IVP.
--- NOTE | 2018-02-24 19:30 | NUR ---
DIALYSIS; Patient on dialysis and completed. output liters per report from hd RN. TOLERATED WELL.PATIENT .AMBULATED TO BATHROOM TO HAVE BOWEL MOVEMENT SUPERVISED BY HD RN.
--- NOTE | 2018-02-24 22:05 | NUR ---
PAIN/ACCU CHEK/CARGO SUPERVISOR/ASSESSMENT: PATIENT IN BED .AWAKE ORIENTED X3. TALKING TO FRIEND VIA CELL PHONE. COMPLAIN OF LEFT UPPER ABDOMEN AND BACK PAIN. DILAUDID 1MG IV GIVEN. SITE CLEAR. BLOOD SUGAR 153. REFUSE COVERAGE. OTHER DUE MEDS TAKEN WITHOUT PROBLEM.PERMA CATH DRESSING DRY AND INTACT. FEELS HUNGRY. ASKED 2 APPLE JUICE. 2 PUDDING, ICE CUBES WITH WATER. BP STABLE.CALL LIGJT WITHIN REACH. BED IN LOW POSITION. DENIES SOB,ON O2 2 LITERS PER N/C. WILL MONITOR CLOSELY.
[2018-02-24] MEDS: LATANOPROST 2.5 ML DROPS (XALATAN) BOTH EYES SCH (22:10)
--- NOTE | 2018-02-25 | NUR ---
PATIENT RESTING WITH EYES CLOSE. WITH OXYGEN. CALL LIGHT NEAR BY.
[2018-02-25 00:14] VITALS: BP_SYST 117
[2018-02-25 00:17] VITALS: BP_SYST 117
--- NOTE | 2018-02-25 01:05 | NUR ---
PAIN/HUNGRY: CALLED FOR DILAUDID IV DUE TO ABDOMINAL PAIN. ASKED FOR1 ORANG JUICE 1 CRANBERRY. TROPICAL JEL 2 ,ASIF, Addendum: 02/25/18 at 2337 by Fabiana Mtz RN orange juice was not given due to potassium content.
[2018-02-25] MEDS: HYDROmorphone 1 MG INJ. 1 MG/ML AMPUL IVP PRN ×7 (01:07→22:50)
--- NOTE | 2018-02-25 01:10 | NUR ---
DISCUSSED FLUID RESTRICTION SINCE HE IS ESRD. STATED IM OKAY IT DOES NOT BOTHER ME. I ALWAYS EAT AND DRINK EVEN AT HOME.
--- NOTE | 2018-02-25 04:25 | NUR ---
PAIN: PATIENT CALLED FOR PAIN MED.[id number] IV GIVEN. SITE PATENT. WITH OXYGEN.
--- NOTE | 2018-02-25 05:55 | NUR ---
VOMITING: PATIENT HAS COUGH FOLLOWED BY VOMITING JUST EATEN CHOCOLATE PUDDING. ZOFRAN IV GIVEN.
[2018-02-25] MEDS: ONDANSETRON HCL 4 MG/2 ML VIAL IVP PRN ×3 (05:58→14:07)
[2018-02-25 06:07] LABS: BASOPHILS # (AUTO) 0.1 K/uL (0.0-0.2); BASOPHILS % (AUTO) 0.8 % (0.0-2.0); EOSINOPHILS # (AUTO) 0.1 K/uL (0.0-0.4); EOSINOPHILS % (AUTO) 1.1 % (0.0-4.0); HEMATOCRIT 31.2 % (36-54); HEMOGLOBIN 10.6 g/dL (14.0-18.0); LYMPHOCYTES # (AUTO) 1.8 K/uL (1.0-5.5); LYMPHOCYTES % (AUTO) 19.4 % (20.5-51.5); MEAN CORPUSCULAR HEMOGLOBIN 32 pg (27-31); MEAN CORPUSCULAR HGB CONC 34 % (32-36); MEAN CORPUSCULAR VOLUME 94 fL (79.0-98.0); MONOCYTES # (AUTO) 0.9 K/uL (0.0-1.0); MONOCYTES % (AUTO) 9.8 % (1.7-9.3); NEUTROPHILS # (AUTO) 6.2 K/uL (1.8-7.7); NEUTROPHILS % (AUTO) 68.9 % (40.0-70.0); PLATELET COUNT (AUTO) 293 K/uL (130-430); RED BLOOD CELL COUNT(AUTO) 3.32 MIL/uL (4.2-6.2); RED CELL DISTRIBUTION WIDTH 14.3 % (9.0-15.0); WHITE BLOOD COUNT (AUTO) 9.1 K/uL (4.8-10.8)
[2018-02-25 06:31] LABS: POTASSIUM 5.9 mmol/L (3.5-5.1)
[2018-02-25 06:32] LABS: CREATININE 9.92 mg/dL (0.55-1.30)
--- NOTE | 2018-02-25 06:55 | NUR ---
CLOSING; CRITICAL VALUE OF K LEVEL 5.9. BUN 9.9 FROM [employer].ALL NEEDS ATTENDED.. NO ACUTE DISTRESS.
--- NOTE | 2018-02-25 07:20 | NUR ---
RN OPENING NOTE SBAR REPORT RECEIVED BY ENDORSING RN AT BEDSIDE. FALL PRECAUTIONS IN PLACE: BED IN LOWEST POSITION, BED ALARM ACTIVE, CALL LIGHT WITHIN REACH. PT EDUCATED ON UNIT SAFETY AND USE OF CALL LIGHT. SEE VS FLOW SHEET
--- NOTE | 2018-02-25 07:30 | NUR ---
NOTIFIED ABOUT CRITICAL VALUE OF K LEVEL 5.9. STATED WILL PUT HEMODIALYSIS ORDERS TODAY. AM RN AWARE.
[2018-02-25 07:40] VITALS: BP_SYST 120
[2018-02-25] MEDS: METOPROLOL TARTRATE 50 MG TABLET PO SCH ×2 (09:00→21:08)
[2018-02-25] MEDS: BRIMONIDINE TARTRATE 0.2% 5 mL EYE DROPS BOTH EYES SCH ×2 (09:00→21:03)
[2018-02-25] MEDS: PANTOPRAZOLE SODIUM 40 MG TAB PO SCH (09:00)
--- NOTE | 2018-02-25 09:00 | NUR ---
DIET COMPLIANCE UPDATE PT REQUESTED BRO AND THREE JUICES IN ADDITION TO HIS PROVIDED BREAKFAST. PT EDUCATED ON THE CONTENT AND BASIS OF A CCHO/RENAL DIET AND WHY, WITH HIS ELEVATED SERUM POTASSIUM WHICH IS NOT BEING CONTROLLED THROUGH DIALYSIS, IT IS IMPORTANT TO REMAIN COMPLIANT WITH HIS PRESCRIBED DIET. PT BECAME VERBALLY UPSET BUT AGREED TO FOLLOW PRESCRIBED DIET.
[2018-02-25] MEDS: TIMOLOL MALEATE 0.5% OPHTHALMIC DROPS 5 ML BOTH EYES SCH ×2 (09:01→21:04)
--- NOTE | 2018-02-25 10:20 | NUR ---
ENDORSEMENT REPORT ENDORSED TO RECEIVING RN AT BEDSIDE.
--- NOTE | 2018-02-25 10:30 | NUR ---
Transfer of care: Received patient from BRANNON Duque. Patient resting on bed. Stable. Informed patient of transfer of care. Safety measures in placed. Call light within reach.
[2018-02-25] MEDS ORDERED: SODIUM POLYSTYRENE SULFONATE 15 GM/60 ML UDBTL PO ONE (11:30)
[2018-02-25 12:15] VITALS: BP_SYST 180
--- NOTE | 2018-02-25 12:30 | NUR ---
FAMILY MEMBERS INSIDE THE ROOM BROUGHT OUTSIDE FOOD DURING LUNCH TIME, FAMILY CAME AND BROUGHT FOOD OUTSIDE. WHILE PATIENT IS EATING, SAW BAGS OF [place] FOOD ON TOP OF PATIENT'S TRAY. EDUCATED PATIENT AND FAMILY THAT PATIENT NEEDS TO FOLLOW STRICT DIET IN HOSPITAL BECAUSE OF HIS ABNORMAL LAB WORKS THAT REQUIRES DIALYSIS FOR 3 CONSECUTIVE DAYS DUE TO ELEVATED POTTASIUM. PT DENIED THAT HE EAT OUTSIDE FOOD AND VERY UPSET, HE STATED THAT THE FOOD WAS FOR HIS FAMILY. THIS MORNING, ROBIN LE NURSE REPORTED THAT PATIENT WAS SO MAD BECAUSE HE IS ASKING FOR MORE DOUBLE PORTION OF BRO BUT ROBIN REFUSED TO GIVE EXTRA BRO BECAUSE PATIENT IS NON COMPLIANT WITH FOOD AND TREATMENT OF CARE.
--- NOTE | 2018-02-25 14:10 | NUR ---
ROUNDS: Patient on bed eating. complaining of abdominal pain. due pain meds given.
[2018-02-25 16:02] VITALS: BP_SYST 148
--- NOTE | 2018-02-25 16:53 | NUR ---
rounds: patient talking to family, family at bedside. no distress noted.
--- NOTE | 2018-02-25 18:29 | NUR ---
Closing notes: Patient on bed resting. Stable. Needs attended. Patient informed he will have a replacement of permacath and NPO starts at midnight. Safety measures in placed. Call light within reach. Report will be given to community nurse.
--- NOTE | 2018-02-25 19:50 | NUR ---
INITIAL NOTES: PATIENT IN BED AWAKE ORIENTED X3. TALKING TO SOMEONE VIA CELL PHONE. FAMILIES AND FRIENDS AT BEDSIDE.BP 151/109 ON RT. UPPER ARM. 148/115 TO LEFT UPPER ARM. PATIENT ANXIOUS ON THE PHONE. JUST FINISHED DINNER 75%DONE. CALL LIGHT WITHIN REACH. BED IN LOW POSITION. WILL MONITOR CLOSELY.
[2018-02-25] MEDS: LATANOPROST 2.5 ML DROPS (XALATAN) BOTH EYES SCH (21:04)
--- NOTE | 2018-02-25 21:05 | NUR ---
MEDS ADMIN: ALL DUE MEDS WITH BP MED GIVEN. RE CHECK BP 165/105. CATAPRES 0.2MG PO PRN ORDERED.PUDDING AND APPLE JUICE GIVEN PER REQUEST SINCE FEELS HUNGRY. BLOOD SUGAR 114MG/DL.
[2018-02-25] MEDS: cloNIDine HCL 0.1 MG TABLET PO PRN (21:08)
--- NOTE | 2018-02-25 21:32 | NUR ---
PAGED DR. WHITE Paged Dr. White @ [phone]; s/w Nany, she did a direct connect with the doctor.
--- NOTE | 2018-02-25 21:40 | NUR ---
DR. HOPE CALLED .ASKED MD WHAT TIME WILL BE SURGERY ,DOES NOT KNOW YET ,WILL ASK SURGERY. TOLD HIM MOTHER WANTS TO KNOW. INFORMED MD ABOUT NPO ,DIABETIC, AND ORDERED IV FLUIDS.
[2018-02-25] MEDS ORDERED: D5NS 1,000 ML IV SCH (22:00)
--- NOTE | 2018-02-25 22:50 | NUR ---
PAIN/ IVF: PATIENT CALLED FOR PAIN MED. LEFT UPPER QUADRANT OF ABDOMEN AND BACK.LEVEL 9/10. DILAUDID 1MG IV GIVEN ORDERED.INFORMED PATIENT THAT IVF IS TO START AT MIDNIGHT SINCE WILL BE NPO AND DIABETIC.PATIENT STATED DONT WANT ANY IVF.
--- NOTE | 2018-02-25 23:05 | NUR ---
SPOKE TO Isa ALFAROABOUT IVF ORDERED BY . ORDERED TO DISCONTINUE.
--- NOTE | 2018-02-25 23:25 | NUR ---
CONSENT: PATIENT SIGNED CONSENT FOR REPLACEMENT OF PERMA CATH UNDER FLUOROSCOPY .EXPLAIN PROCEDURE ON LAY VERONICA WORDS WITH UNDERSTANDING.
--- NOTE | 2018-02-26 00:10 | NUR ---
NPO INITIATED. UNDERSTANDS REASON WHY.
[2018-02-26 00:21] VITALS: BP_SYST 136
--- NOTE | 2018-02-26 01:30 | NUR ---
MEDICATED WIT PAIN MED ORDERED.
[2018-02-26] MEDS: HYDROmorphone 1 MG INJ. 1 MG/ML AMPUL IVP PRN ×7 (01:36→22:33)
--- NOTE | 2018-02-26 04:25 | NUR ---
MEDICATED WITH DILAUDID 1MG .
--- NOTE | 2018-02-26 07:20 | NUR ---
PATIENT AND MOTHER CALLED FOR PAIN MED. DILAUDID IV GIVEN. REPORT GIVEN TO REY SOUTH.
[2018-02-26 07:34] VITALS: BP_SYST 136
[2018-02-26 07:38] LABS: PROTHROMBIN TIME 10.6 SECS (9.5-12.5)
[2018-02-26 07:40] LABS: BASOPHILS # (AUTO) 0.1 K/uL (0.0-0.2); BASOPHILS % (AUTO) 0.5 % (0.0-2.0); EOSINOPHILS # (AUTO) 0.1 K/uL (0.0-0.4); EOSINOPHILS % (AUTO) 1.2 % (0.0-4.0); HEMATOCRIT 30.3 % (36-54); HEMOGLOBIN 10.5 g/dL (14.0-18.0); LYMPHOCYTES # (AUTO) 2.5 K/uL (1.0-5.5); LYMPHOCYTES % (AUTO) 23.6 % (20.5-51.5); MEAN CORPUSCULAR HEMOGLOBIN 32 pg (27-31); MEAN CORPUSCULAR HGB CONC 35 % (32-36); MEAN CORPUSCULAR VOLUME 92 fL (79.0-98.0); MONOCYTES # (AUTO) 0.8 K/uL (0.0-1.0); MONOCYTES % (AUTO) 7.2 % (1.7-9.3); NEUTROPHILS % (AUTO) 67.5 % (40.0-70.0); PLATELET COUNT (AUTO) 281 K/uL (130-430); RED CELL DISTRIBUTION WIDTH 13.5 % (9.0-15.0); WHITE BLOOD COUNT (AUTO) 10.5 K/uL (4.8-10.8)
[2018-02-26 07:49] LABS: ALBUMIN 3.1 g/dL (3.4-4.8); CALCIUM 8.9 mg/dL (8.4-11.0); POTASSIUM 4.8 mmol/L (3.5-5.1); TOTAL BILIRUBIN 0.3 mg/dL (0.0-1.0)
[2018-02-26 07:59] LABS: CREATININE 11.69 mg/dL (0.55-1.30)
[2018-02-26 08:00] VITALS: BP_SYST 140
--- NOTE | 2018-02-26 08:00 | NUR ---
initial notes rec patient awake sitting at bedside and eating breakfast. denies pain, resp easy and unlabored. bed in low position and side rails up and locked.call donis villa reached and knows when to call for assists.fall/safetu precaution reinforced. Addendum: 02/26/18 at 0835 by Claudia White RN intended for another patient.
--- NOTE | 2018-02-26 08:10 | NUR ---
initial notes rec patient with hob elevated. ivl intact. no infiltration noted. npo maintianed for sx today. resp easy and unlabored. no osb noted. bed in low position and side rails up and locked. call light within reached and knows when to call for assistance. fall/ safety precaution reinforced.
--- NOTE | 2018-02-26 08:15 | NUR ---
rounds spoke with dr malik billy and stated will get back to me.
[2018-02-26] MEDS: METOPROLOL TARTRATE 50 MG TABLET PO SCH ×2 (09:00→21:42)
[2018-02-26] MEDS: PANTOPRAZOLE SODIUM 40 MG TAB PO SCH (09:00)
--- NOTE | 2018-02-26 10:00 | NUR ---
rounds dr gan calld and stated pt will have sx at 1300. npo maintained and pt is upset being npo.will give due pain med as ordered. sleeps at intervals.
[2018-02-26 11:35] VITALS: BP_SYST 229
[2018-02-26] MEDS: TIMOLOL MALEATE 0.5% OPHTHALMIC DROPS 5 ML BOTH EYES SCH ×2 (12:27→21:38)
[2018-02-26] MEDS: cloNIDine HCL 0.1 MG TABLET PO PRN (12:27)
[2018-02-26] MEDS: BRIMONIDINE TARTRATE 0.2% 5 mL EYE DROPS BOTH EYES SCH ×2 (12:27→21:39)
--- NOTE | 2018-02-26 12:32 | NUR ---
rounds no hypo hyperglycemic reaction noted. bp meds was given , npo maintained fo the procedure at 1300. .
[2018-02-26] MEDS ORDERED: ONDANSETRON HCL 4 MG/2 ML VIAL IVP PRN (14:30)
[2018-02-26] MEDS ORDERED: fentaNYL CITRATE/PF 100 MCG/2 ML AMP IVP PRN ×2 (14:30)
[2018-02-26] MEDS ORDERED: fentaNYL CITRATE/PF 100 MCG/2 ML AMP ONE (14:49)
[2018-02-26] MEDS ORDERED: LABETALOL 100 MG/ 20ML VIAL IVP ONE (15:00)
[2018-02-26] MEDS ORDERED: LABETALOL 100 MG/ 20ML VIAL ONE (15:08)
[2018-02-26] MEDS ORDERED: hydrALAZINE HCL 20 MG/ML VIAL ONE (15:25)
[2018-02-26] MEDS ORDERED: cloNIDine HCL 0.1 MG TABLET PO ONE (15:30)
[2018-02-26] MEDS ORDERED: hydrALAZINE HCL 20 MG/ML VIAL IVP ONE (15:30)
[2018-02-26] MEDS ORDERED: SODIUM POLYSTYRENE SULFONATE 15 GM/60 ML UDBTL PO ONE (15:45)
--- NOTE | 2018-02-26 15:45 | NUR ---
rounds pt back from rr for the placement of a new perma cath. medicated with dilaudid as requested for pain and ordered. no sob noted.
--- NOTE | 2018-02-26 16:30 | NUR ---
rounds dialysis was started at bedside by jeferson king . pt is asleep , denies pain. seen by dr cowart at bedside.
[2018-02-26 16:45] VITALS: BP_SYST 148; BP_SYST 187
[2018-02-26] MEDS: ONDANSETRON HCL 4 MG/2 ML VIAL IVP PRN (17:15)
[2018-02-26] MEDS: INSULIN REGULAR, HUMAN 100 UNITS/ML, 10 ML VIAL (novoLIN R) SUBCUT PRN ×2 (17:21→21:46)
--- NOTE | 2018-02-26 17:26 | NUR ---
rounds requested for zofran and was given , bs was done, no hypo hyperglycemic reaction noted. given 2 units coverage of insulin.
--- NOTE | 2018-02-26 18:30 | NUR ---
closing notes dialysis still in progress. asleep at this time. denies pain at this time. call light within reached.bed to the lowest position and side rails up and locked.
[2018-02-26] MEDS ORDERED: HEPARIN SODIUM,PORCINE 5000 UNITS/ML VIAL ONE (19:23)
[2018-02-26 20:00] VITALS: BP_SYST 109
--- NOTE | 2018-02-26 20:00 | NUR ---
PM SHIFT ASSESSMENT Received patient lying in bed, aox4, vital signs stable. C/O of severe pain, medicated with Dilaudid 1 mg IVP for pain management, educated on safety precautions, patient verbalized understanding. Dialysis completed, 3 liters output from [facility]. Right upper chest PermCath intact and patent. Plan of care discussed with patient and family. Family at bedside. patient oriented to use call light for nurse assistance.
[2018-02-26] MEDS: LATANOPROST 2.5 ML DROPS (XALATAN) BOTH EYES SCH (21:39)
--- NOTE | 2018-02-26 21:56 | NUR ---
Scheduled meds Gave scheduled eyedrops and PO meds. Accucheck 194. 2 units of insulin given. Patient tolerated well. No signs of allergic reaction noted.
--- NOTE | 2018-02-26 22:42 | NUR ---
IS Educated the patient on the benefits of using the IS. Patient able to inspire 3500 ml. Patient tolerated well.
--- NOTE | 2018-02-27 00:05 | NUR ---
RN rounds Patient resting comfortably in bed. No signs of distress noted. Breathing is even and unlabored. No needs at this moment. Safety precautions in place.
[2018-02-27 00:21] VITALS: BP_SYST 122
[2018-02-27] MEDS: HYDROmorphone 1 MG INJ. 1 MG/ML AMPUL IVP PRN ×5 (01:33→14:05)
--- NOTE | 2018-02-27 02:15 | NUR ---
RN rounds Patient resting in bed. No signs of distress noted. Safety precautions in place.
--- NOTE | 2018-02-27 04:50 | NUR ---
Pain meds Patient complain of 10/10 pain to abdomen. Gave prn pain meds. Patient tolerated well. No signs of allergic reaction noted.
--- NOTE | 2018-02-27 06:48 | NUR ---
Closing notes Patient is resting comfortably in bed. No signs of distress noted. Breathing is even and unlabored. IV is patent and intact, saline locked. All needs met. Practice guidelines met throughout the shift. Safety precautions in place.
--- NOTE | 2018-02-27 07:35 | NUR ---
OPENING NOTE PT IN BED ON HIS PHONE. NO DISTRESS NOTED. BED ALARM IN PLACE WITH BED IN THE LOWEST POSITION. CALL LIGHT WITHIN REACH.
[2018-02-27 07:40] LABS: ALBUMIN 2.9 g/dL (3.4-4.8); CALCIUM 8.7 mg/dL (8.4-11.0); PHOSPHORUS 10.8 mg/dL (2.7-4.5); POTASSIUM 4.6 mmol/L (3.5-5.1); TOTAL BILIRUBIN 0.3 mg/dL (0.0-1.0)
[2018-02-27 07:45] VITALS: BP_SYST 196
[2018-02-27 07:45] LABS: BASOPHILS % (AUTO) 0.2 % (0.0-2.0); EOSINOPHILS # (AUTO) 0.1 K/uL (0.0-0.4); HEMATOCRIT 29.7 % (36-54); HEMOGLOBIN 9.9 g/dL (14.0-18.0); LYMPHOCYTES # (AUTO) 1.6 K/uL (1.0-5.5); LYMPHOCYTES % (AUTO) 15.4 % (20.5-51.5); MEAN CORPUSCULAR HEMOGLOBIN 32 pg (27-31); MEAN CORPUSCULAR HGB CONC 33 % (32-36); MEAN CORPUSCULAR VOLUME 95 fL (79.0-98.0); MONOCYTES # (AUTO) 0.7 K/uL (0.0-1.0); MONOCYTES % (AUTO) 7.3 % (1.7-9.3); NEUTROPHILS # (AUTO) 7.8 K/uL (1.8-7.7); NEUTROPHILS % (AUTO) 76.1 % (40.0-70.0); PLATELET COUNT (AUTO) 274 K/uL (130-430); RED BLOOD CELL COUNT(AUTO) 3.12 MIL/uL (4.2-6.2); RED CELL DISTRIBUTION WIDTH 13.9 % (9.0-15.0); WHITE BLOOD COUNT (AUTO) 10.2 K/uL (4.8-10.8)
[2018-02-27 07:50] LABS: CREATININE 8.12 mg/dL (0.55-1.30)
[2018-02-27] MEDS: BRIMONIDINE TARTRATE 0.2% 5 mL EYE DROPS BOTH EYES SCH (08:03)
[2018-02-27] MEDS: PANTOPRAZOLE SODIUM 40 MG TAB PO SCH (08:03)
[2018-02-27] MEDS: TIMOLOL MALEATE 0.5% OPHTHALMIC DROPS 5 ML BOTH EYES SCH (08:04)
[2018-02-27] MEDS: METOPROLOL TARTRATE 50 MG TABLET PO SCH (08:06)
--- NOTE | 2018-02-27 08:09 | NUR ---
AM MEDS MORNING MEDS GIVEN. PT TOLERATED WELL. PT C/O ABD PAIN 10/ GIVEN DILAUDID ORDERED. SAFETY MAINTAINED.
[2018-02-27 10:00] VITALS: BP_SYST 160
[2018-02-27] MEDS: cloNIDine HCL 0.1 MG TABLET PO PRN ×2 (11:07→13:24)
[2018-02-27 11:10] VITALS: BP_SYST 185
--- NOTE | 2018-02-27 11:38 | NUR ---
MED PASS/ BLOOD SUGAR CHECK PT BLOOD SUGAR CHECKED 119 NO COVERAGE NEEDED PER MD SLIDING SCALE CATAPRESS PRN GIVEN AT THIS TIME. PT C/O OF ABD PAIN GIVEN DILAUDID ORDERED. SAFETY MAINTAINED. NO OTHER DISTRESS NOTED.
[2018-02-27 13:32] VITALS: BP_SYST 126
[2018-02-27 14:07] VITALS: BP_SYST 126
--- NOTE | 2018-02-27 14:47 | NUR ---
D/C Patient Patient given medication reconciliation form and D/C instructions. Exit Care provided. Patient verbalized understanding. MD discussed with patient the results and treatment provided. taken via wheelchair. Patient in stable condition, ID band removed. IV catheter removed, intact and dressing applied, no active bleeding. Patient educated on pain management. All belongings sent with patient.
== END 2018-02-27 14:30 | disposition home or self-care (01) | DRG 314 ==
LOC: SED 01:05 → STU 03:20 → SMU 02-21 12:23
PROVIDERS: ADMIT Internal Medicine; ATTEND Internal Medicine
PROC: 5A1D70Z Performance of Urinary Filtration, Intermittent, Less than 6 Hours Per Day (ICD-10-PCS; 2018-02-19)
PROC: 06PY33Z Removal of Infusion Device from Lower Vein, Percutaneous Approach (ICD-10-PCS; 2018-02-20)
PROC: 06H033Z Insertion of Infusion Device into Inferior Vena Cava, Percutaneous Approach (ICD-10-PCS; 2018-02-20)
PROC: B5191ZA Fluoroscopy of Inferior Vena Cava using Low Osmolar Contrast, Guidance (ICD-10-PCS; 2018-02-20)
PROC: 5A1D70Z Performance of Urinary Filtration, Intermittent, Less than 6 Hours Per Day (ICD-10-PCS; 2018-02-20)
PROC: 5A1D70Z Performance of Urinary Filtration, Intermittent, Less than 6 Hours Per Day (ICD-10-PCS; 2018-02-21)
PROC: 5A1D70Z Performance of Urinary Filtration, Intermittent, Less than 6 Hours Per Day (ICD-10-PCS; 2018-02-23)
PROC: 5A1D70Z Performance of Urinary Filtration, Intermittent, Less than 6 Hours Per Day (ICD-10-PCS; 2018-02-24)
PROC: 06H033Z Insertion of Infusion Device into Inferior Vena Cava, Percutaneous Approach (ICD-10-PCS; 2018-02-26)
PROC: B5191ZA Fluoroscopy of Inferior Vena Cava using Low Osmolar Contrast, Guidance (ICD-10-PCS; 2018-02-26)
PROC: 5A1D70Z Performance of Urinary Filtration, Intermittent, Less than 6 Hours Per Day (ICD-10-PCS; 2018-02-26)
PROC: 06PY33Z Removal of Infusion Device from Lower Vein, Percutaneous Approach (ICD-10-PCS; principal; 2018-02-26 13:00)
DX: T82.41XA Breakdown (mechanical) of vascular dialysis catheter, initial encounter (principal); N18.6 End stage renal disease; E87.1 Hypo-osmolality and hyponatremia; I13.2 Hypertensive heart and chronic kidney disease with heart failure and with stage 5 chronic kidney disease, or end stage renal disease; Y82.8 Other medical devices associated with adverse incidents; E87.5 Hyperkalemia; E10.22 Type 1 diabetes mellitus with diabetic chronic kidney disease; E10.43 Type 1 diabetes mellitus with diabetic autonomic (poly)neuropathy; E10.65 Type 1 diabetes mellitus with hyperglycemia; G89.4 Chronic pain syndrome; H40.9 Unspecified glaucoma; H54.8 Legal blindness, as defined in USA; K31.84 Gastroparesis; I16.0 Hypertensive urgency; E10.42 Type 1 diabetes mellitus with diabetic polyneuropathy; E21.1 Secondary hyperparathyroidism, not elsewhere classified; K59.00 Constipation, unspecified; D63.1 Anemia in chronic kidney disease; E10.319 Type 1 diabetes mellitus with unspecified diabetic retinopathy without macular edema; E66.01 Morbid (severe) obesity due to excess calories; I50.9 Heart failure, unspecified; E10.21 Type 1 diabetes mellitus with diabetic nephropathy; Z79.4 Long term (current) use of insulin; Z99.2 Dependence on renal dialysis; Z68.36 Body mass index [BMI] 36.0-36.9, adult; Z88.5 Allergy status to narcotic agent; Z88.8 Allergy status to other drugs, medicaments and biological substances; Y92.89 Other specified places as the place of occurrence of the external cause; Z79.899 Other long term (current) drug therapy; Z91.11 Patient's noncompliance with dietary regimen
CPT/HCPCS: 36415; 71045; 76000; 80048; 80053; 82962; 84100-TC; 85025; 85610-TC; 85730-TC; 86886; 86900; 86901; 87070; 87070-TC; 87081; 90656; 90935; 90937; 94010; 94640; 94760; 96372; 96374; 96375; 99285; C1750; G0378; J0360; J0500; J0690; J1170; J1630; J1644; J1815; J1885; J2250; J2405; J2704; J3010; J3490; J7030; J7613

== ENCOUNTER 2018-03-20 20:08 | Inpatient (IN) | payer OTHER, MEDICAID ==
[~2018-03-20] VITALS: Ht 177.8 cm; Wt 124.9 kg
[2018-03-20 20:21] VITALS: BP_SYST 260
--- NOTE | 2018-03-20 20:21 | NUR ---
Pt placed to ER bed 06, report given to BRANNON Trevino.
--- NOTE | 2018-03-20 20:21 | NUR ---
Pt placed on quality assurance monitor body. Dr. Johnson notified of B/P 260/155. Pt denies c/o H/A, C/P or SOB.
--- NOTE | 2018-03-20 20:28 | NUR ---
Dr. Johnson at bedside.
--- NOTE | 2018-03-20 20:30 | NUR ---
Pt is C/O chronic LUQ abdominal pain. Pt states pain is a 10/10 and has a pain management doctor that prescribes him Dilaudid. Pt is requesting narcotic pain medication from ER MD. Pt denies chest pain, shortness of breath, nausea or vomiting at this time. Will continue to monitor.
[2018-03-20] MEDS ORDERED: FAMOTIDINE PF 20 MG/2 ML VIAL IVP ONE (20:45)
[2018-03-20] MEDS ORDERED: MAG HYDROX/AL HYDROX/SIMETH 30 ML, BELLADONNA ALKALOIDS/PHENOBARB 10 ML, LIDOCAINE VISC... PO ONE ×3 (20:45)
[2018-03-20 21:15] LABS: BASOPHILS # (AUTO) 0.1 K/uL (0.0-0.2); BASOPHILS % (AUTO) 1.2 % (0.0-2.0); EOSINOPHILS % (AUTO) 0.3 % (0.0-4.0); HEMATOCRIT 38.8 % (36-54); HEMOGLOBIN 12.7 g/dL (14.0-18.0); LYMPHOCYTES # (AUTO) 1.3 K/uL (1.0-5.5); LYMPHOCYTES % (AUTO) 11.1 % (20.5-51.5); MEAN CORPUSCULAR HEMOGLOBIN 31 pg (27-31); MEAN CORPUSCULAR HGB CONC 33 % (32-36); MEAN CORPUSCULAR VOLUME 95 fL (79.0-98.0); MONOCYTES # (AUTO) 0.6 K/uL (0.0-1.0); MONOCYTES % (AUTO) 4.6 % (1.7-9.3); NEUTROPHILS % (AUTO) 82.8 % (40.0-70.0); PLATELET COUNT (AUTO) 258 K/uL (130-430); RED BLOOD CELL COUNT(AUTO) 4.09 MIL/uL (4.2-6.2); RED CELL DISTRIBUTION WIDTH 14.7 % (9.0-15.0)
[2018-03-20 21:19] LABS: CALCIUM 8.7 mg/dL (8.4-11.0)
[2018-03-20 21:25] LABS: CREATININE 10.14 mg/dL (0.55-1.30); POTASSIUM 6.5 mmol/L (3.5-5.1)
[2018-03-20 21:26] LABS: TOTAL BILIRUBIN 0.4 mg/dL (0.0-1.0)
[2018-03-20 21:27] LABS: ALBUMIN 3.8 g/dL (3.4-4.8)
--- NOTE | 2018-03-20 21:30 | NUR ---
Pt is sitting in bed, requesting pain medication.
--- NOTE | 2018-03-20 21:41 | NUR ---
MD at bedside discussing lab results with patient
[2018-03-20] MEDS ORDERED: DEXTROSE 50% JECT 50 ML DISP.SYRIN IVP ONE (21:45)
[2018-03-20] MEDS ORDERED: SODIUM BICARBONATE 8.4% JECT 50 MEQ/50 ML SYRINGE IVP ONE (21:45)
[2018-03-20] MEDS ORDERED: INSULIN REGULAR, HUMAN 10 UNITS/0.1 ML INJ IVP ONE (21:45)
[2018-03-20] MEDS ORDERED: LABETALOL 100 MG/ 20ML VIAL IVP ONE ×2 (22:00→22:30)
[2018-03-20] MEDS ORDERED: ONDANSETRON HCL 4 MG/2 ML VIAL IVP ONE (22:30)
--- NOTE | 2018-03-20 22:36 | NUR ---
pts BP 230/148, spoke to med surg charge. unable to get bed till pt is stable.
[2018-03-20] MEDS ORDERED: LABETALOL 100 MG/ 20ML VIAL ONE (22:39)
--- NOTE | 2018-03-20 22:58 | NUR ---
Pt is sitting in bed, no acute distress noted at this time. Pt's blood pressure is trending downward after medication administration and is currently 189/113. Will continue to monitor.
--- NOTE | 2018-03-20 23:17 | NUR ---
Kyler Burch was called but was informed my the tech that a charge nurse is unable to answer the phone right now and they will call ER back for a bed.
--- NOTE | 2018-03-20 23:43 | NUR ---
ADMIT NOTE Received pt from ER to the floor with a diagnosis of hyperkalemia. Admission process initiated. patient oriented to pain management, safety and call light-teach back done.
[2018-03-20 23:50] VITALS: BP_SYST 225
--- NOTE | 2018-03-20 23:56 | NUR ---
Patient will be admitted to care of Dr. Hill. Admitted to telemetry unit. Will go to room 117A. Belongings list completed. Summary report printed. Report will be given at bedside.
[2018-03-21] VITALS: BP_SYST 117; BP_SYST 192
[2018-03-21] MEDS: hydrALAZINE HCL 20 MG/ML VIAL IVP PRN ×6 (00:08→20:31)
[2018-03-21] MEDS: HYDROmorphone 1 MG INJ. 1 MG/ML AMPUL IVP PRN ×6 (00:09→20:27)
--- NOTE | 2018-03-21 00:10 | NUR ---
Initial Notes Received patient resting in bed, awake, alert, family at bedside. Patient denies any acute distress at this time. Medicated patient for pain per MD orders. Vital signs stable, BP elevated, MD aware, medicated patient per MD orders. Educated patient regarding use of call light for assistance and fall precautions, patient verbalized understanding. Call light in hand, fall precautions in place. Will continue to monitor.
--- NOTE | 2018-03-21 00:30 | NUR ---
BP reassessment BP 192/97 post PRN medication administration. Will continue to monitor.
--- NOTE | 2018-03-21 02:00 | NUR ---
Nursing Notes Patient resting in up in bed watching TV. Patient denies any acute distress at this time. Breathing is even and unlabored. Snacks given to patient per request. Needs addressed. Call light in hand, fall precautions in place.
[2018-03-21 04:00] VITALS: BP_SYST 183
--- NOTE | 2018-03-21 04:00 | NUR ---
Nursing Notes Patient resting in bed, awake. Patient denies any acute distress at this time. Breathing is even and unlabored. Medicated patient for pain and elevated BP per MD orders. Needs addressed. Call light in hand, fall precautions in place. Will continue to monitor.
--- NOTE | 2018-03-21 04:30 | NUR ---
BP Reassessment BP 174/98
--- NOTE | 2018-03-21 05:24 | NUR ---
CONSULTATION PAGED/CALLED Reason for Consultation: HYPERKALEMIA Person Who was Notified: JIM Consulting Physician: ISAIAS GILBERT; EATING DISORDER PSYCHOLOGIST-DR. JULIA LEONE Ordering Physician: DR. MAXWELL
--- NOTE | 2018-03-21 06:42 | NUR ---
Closing Notes Patient resting in bed, awake watching TV. Patient denies any acute distress or pain at this time. Breathing is even and unlabored. IV site patent/clean/dry, no S/S infection/infiltration noted. Needs addressed throughout shift. Call light in hand, fall precautions in place. Will continue to monitor for changes and safety, and endorse all patient care/needs to oncoming nurse.
--- NOTE | 2018-03-21 07:10 | NUR ---
OPENING NOTE: MORNING REPORT WAS TAKEN AT BEDSIDE. PATIENT AWAKE THROWING UP. PATIENT ON ROOM AIR. IV SALINE LOCKED. NIGHT NURSE SAID THEY WOULD GIVE ZOFRAN. EDUCATED PATIENT ON IMPORTANCE OF BED ALARM BUT REFUSED TO HAVE IT ON. ORIENTED PATIENT TO ROOM. CALL LIGHT IS IN REACH. SIDE RAILS ARE UP AND BED IS IN LOWEST POSITION. WILL CONTINUE TO MONITOR.
[2018-03-21] MEDS: ONDANSETRON HCL 4 MG/2 ML VIAL IVP PRN ×2 (07:13→11:42)
--- NOTE | 2018-03-21 07:19 | NUR ---
OPENING NOTE: MORNING REPORT WAS TAKEN AT BEDSIDE FROM NIGHT NURSE. PATIENT AWAKE WITH NO SIGNS OF DISTRESS. PATIENT ON ROOM AIR. IV SALINE LOCKED. BED ALARM IS ON AND CALL LIGHT IS IN REACH. SIDE RAILS ARE UP AND BED IS IN LOWEST POSITION. WILL CONTINUE TO MONITOR. Addendum: 03/21/18 at 0741 by Carlie Mckenzie RN WRONG PT
[2018-03-21 08:00] VITALS: BP_SYST 184
--- NOTE | 2018-03-21 08:30 | NUR ---
NOTE: PATIENT'S BLOOD PRESSURE WAS ELEVATED THIS MORNING AT 208/119. GAVE PRN BLOOD PRESSURE MEDICATION. REASSESSED BLOOD PRESSURE AND WAS 184/98. PATIENT NOT COMPLAINING OF ANY DISTRESS. WILL CONTINUE TO MONITOR.
--- NOTE | 2018-03-21 09:55 | NUR ---
SOB: PATIENT LAYING IN BED COMPLAINING OF SHORTNESS OF BREATH. OXYGEN SATURATION 99% ON ROOM AIR. PUT PATIENT ON 1L NC. WILL PAGE MD FOR BREATHING TREATMENT.
--- NOTE | 2018-03-21 10:00 | NUR ---
PAGED PAGED RAY WATERS AT [phone] SPOKE WITH EXCHANGE.
[2018-03-21 10:35] VITALS: BP_SYST 183
--- NOTE | 2018-03-21 10:36 | NUR ---
: DR MAXWELL CALLED BACK. ORDERED BREATHING TREATMENT. LET HIM KNOW ABOUT PATIENT'S BP AND CHANGED APRESOLINE TO Q2H PRN.
[2018-03-21] MEDS ORDERED: ALBUTEROL SULFATE 0.083% 2.5 MG/3 ML VIAL.NEB INH ONE (10:40)
--- NOTE | 2018-03-21 11:00 | NUR ---
Nutrition Update Buddy Scale 18 noted. Pt admitted for hyperkalemia. Diet: renal BMI: 41.3 kg/m2 RD to follow per nutrition care standards.
--- NOTE | 2018-03-21 11:55 | NUR ---
PATIENT EDUCING VOMITING. PATIENT ABOUT TO START GETTING DIALYSIS. PATIENT WAS COMPLAINING OF PAIN. PATIENT THREW UP ON SIDE OF BED. GAVE PATIENT PAIN MEDICATIONS AND ZOFRAN. AFTER SAW PATIENT STICKING HIS FINGERS DOWN HIS THROAT TO EDUCED VOMITING. DIALYSIS NURSE SAW WELL. GAVE PATIENT BP PRN MEDICATION FOR ELEVATED BP. PATIENT REFUSED TO HAVE BLOOD SUGAR TAKEN AT MOMENT BECAUSE HE WAS THROWING UP. DIALYSIS NURSE AT BEDSIDE. WILL CONTINUE TO MONITOR.
[2018-03-21] MEDS ORDERED: GABAPENTIN 300 MG CAPSULE PO PRN (12:30)
[2018-03-21] MEDS ORDERED: METHOCARBAMOL 500 MG TABLET PO PRN (12:30)
--- NOTE | 2018-03-21 12:35 | NUR ---
BP REASSESSMENT: PATIENT'S BP WENT DOWN TO 175/88.
[2018-03-21] MEDS ORDERED: HEPARIN SODIUM,PORCINE 5000 UNITS/ML VIAL MC PRN (13:00)
[2018-03-21] MEDS ORDERED: METOPROLOL TARTRATE 50 MG TABLET PO ONE (13:00)
[2018-03-21] MEDS ORDERED: PANTOPRAZOLE SODIUM 40 MG TAB PO ONE (13:00)
[2018-03-21 15:08] VITALS: BP_SYST 175
--- NOTE | 2018-03-21 16:59 | NUR ---
NOTE: REASSESSED PATIENT'S BP AND WAS 185/90. PATIENT'S PAIN DOING BETTER. CHECKED PATIENT'S BLOOD SUGAR AND WAS 142. NO INSULIN NEEDED TO COVER. PATIENT HAS NO FURTHER REQUESTS. WILL CONTINUE TO MONITOR.
[2018-03-21] MEDS ORDERED: METOCLOPRAMIDE HCL 10 MG TABLET PO PRN (17:00)
--- NOTE | 2018-03-21 18:44 | NUR ---
CLOSING NOTE: PATIENT LAYING IN BED WITH NO SIGNS OF DISTRESS. PATIENT IV IS SALINE LOCKED. SCD'S AT BEDSIDE. PATIENT REFUSED TO HAVE SCD'S ON. PATIENT REFUSED BED ALARM THROUGH OUT SHIFT. CALL LIGHT IS IN REACH AND BED IS IN LOWEST POSITION. WILL CONTINUE TO MONITOR AND GIVE REPORT TO REAL ESTATE INVESTMENT ANALYST NURSE.
--- NOTE | 2018-03-21 19:15 | NUR ---
Initial PM Note Pt is fully awake, alert and oriented x4. Speech is clear an pt is able to make his needs known. No c/o pain or discomfort at this time. Skin is warm and dry to touch. No signs or symptoms of hypoglycemia or hyperglycemia noted. Saline lock in LFA is without any signs of infiltration. Right chest Hemodialysis PermaCath is in place with the dressing dry and intact. Fall and safety precautions are in place. Pt was instructed to call for assistance as needed and pt verbalized understanding. Call light is with pt and bed alarm is on.
[2018-03-21 20:00] VITALS: BP_SYST 197
--- NOTE | 2018-03-21 20:27 | NUR ---
Pain Medication Pt c/o abdominal pain, but no nausea or vomiting. Dilaudid 1mg was given IV per pt's request with relief.
[2018-03-21] MEDS: BRIMONIDINE TARTRATE 0.2% 5 mL EYE DROPS BOTH EYES SCH (20:31)
--- NOTE | 2018-03-21 20:31 | NUR ---
Elevated Blood Pressure Hydralazine 10mg was given IV for BP of 197/104. Pt's speech is clear and pt is moving all his extremities freely. Fall and safety precautions are in place.
[2018-03-21] MEDS: LATANOPROST 2.5 ML DROPS (XALATAN) BOTH EYES SCH (20:32)
[2018-03-21] MEDS: TIMOLOL MALEATE 0.5% OPHTHALMIC DROPS 5 ML BOTH EYES SCH (20:33)
[2018-03-21] MEDS: METOPROLOL TARTRATE 50 MG TABLET PO SCH (20:33)
--- NOTE | 2018-03-21 20:37 | NUR ---
Blood Sugar Accucheck 135 and no Insulin coverage needed. Pt ate 2 cups vanilla pudding and drank 2 cups Apple juice for HS snacks. No c/o pain or discomfort at this time. Fall and safety precautions are in place.
--- NOTE | 2018-03-21 22:00 | NUR ---
Rounds Pt is resting comfortably in bed. Call light is with pt and bed alarm is on.
[2018-03-22] MEDS: HYDROmorphone 1 MG INJ. 1 MG/ML AMPUL IVP PRN ×6 (00:31→21:20)
--- NOTE | 2018-03-22 00:31 | NUR ---
Pain Medication Pt c/o abdominal pain and Dilaudid 1mg was given IV per pt's request with relief. Fall and safety precautions are in place. call light is with pt an bed alarm is on.
[2018-03-22 00:55] VITALS: BP_SYST 140
--- NOTE | 2018-03-22 03:00 | NUR ---
Rounds Pt is sleeping comfortably in bed. Fall and safety precautions are in place. Call light is with pt and bed alarm is on. Bed is in the lowest and locked positions.
--- NOTE | 2018-03-22 05:17 | NUR ---
Patient c/o pain. Administered PRN dilaudid IVP as ordered
--- NOTE | 2018-03-22 05:44 | NUR ---
Pain Reassessment Pt verbalized pain relief from the IV Dilaudid given 30 minutes ago. Fall and safety precautions are in place.
[2018-03-22 05:56] LABS: BASOPHILS # (AUTO) 0.1 K/uL (0.0-0.2); BASOPHILS % (AUTO) 0.6 % (0.0-2.0); EOSINOPHILS % (AUTO) 0.5 % (0.0-4.0); HEMATOCRIT 36.2 % (36-54); HEMOGLOBIN 12.1 g/dL (14.0-18.0); LYMPHOCYTES # (AUTO) 2.1 K/uL (1.0-5.5); LYMPHOCYTES % (AUTO) 22.6 % (20.5-51.5); MEAN CORPUSCULAR HEMOGLOBIN 32 pg (27-31); MEAN CORPUSCULAR HGB CONC 33 % (32-36); MEAN CORPUSCULAR VOLUME 96 fL (79.0-98.0); MONOCYTES # (AUTO) 0.8 K/uL (0.0-1.0); MONOCYTES % (AUTO) 8.4 % (1.7-9.3); NEUTROPHILS # (AUTO) 6.1 K/uL (1.8-7.7); NEUTROPHILS % (AUTO) 67.9 % (40.0-70.0); PLATELET COUNT (AUTO) 262 K/uL (130-430); RED BLOOD CELL COUNT(AUTO) 3.77 MIL/uL (4.2-6.2); RED CELL DISTRIBUTION WIDTH 15.4 % (9.0-15.0); WHITE BLOOD COUNT (AUTO) 9.1 K/uL (4.8-10.8)
[2018-03-22 06:32] LABS: CALCIUM 8.7 mg/dL (8.4-11.0); POTASSIUM 5.3 mmol/L (3.5-5.1)
[2018-03-22 06:42] LABS: PHOSPHORUS 8.6 mg/dL (2.7-4.5)
--- NOTE | 2018-03-22 06:51 | NUR ---
Closing Note Pt is awake and resting quietly in bed. All pt's needs were attended to. No fall or injury noted this shift. Accucheck 104 this AM and no Insulin coverage needed. Skin remains warm and dry to touch. Will endorse to day shift nurse.
[2018-03-22 06:58] LABS: CREATININE 7.93 mg/dL (0.55-1.30)
--- NOTE | 2018-03-22 07:40 | NUR ---
opening note pt awake alert, no distress, reoriented to call light use, bed alarm in place with bed in the lowest position.
[2018-03-22 08:00] VITALS: BP_SYST 147
[2018-03-22] MEDS: PANTOPRAZOLE SODIUM 40 MG TAB PO SCH (09:19)
[2018-03-22] MEDS: METOPROLOL TARTRATE 50 MG TABLET PO SCH ×2 (09:20→21:23)
[2018-03-22] MEDS: TIMOLOL MALEATE 0.5% OPHTHALMIC DROPS 5 ML BOTH EYES SCH ×2 (09:21→21:24)
[2018-03-22] MEDS: BRIMONIDINE TARTRATE 0.2% 5 mL EYE DROPS BOTH EYES SCH ×2 (09:21→21:24)
--- NOTE | 2018-03-22 09:23 | NUR ---
am meds morning meds given , pt tolerated well. pt c/o abd pain given Dilaudid as ordered. safety maintained.
--- NOTE | 2018-03-22 10:45 | NUR ---
blood sugar 134 no insulin coverage needed per md sliding a scale
[2018-03-22 12:02] VITALS: BP_SYST 143
--- NOTE | 2018-03-22 13:30 | NUR ---
pt c/o pain given Dilaudid as ordered.
[2018-03-22 16:02] VITALS: BP_SYST 122
--- NOTE | 2018-03-22 16:26 | NUR ---
Dietitian Recommendations * Recommend continuing renal diet per LP, RD Please refer to Nutrition Assessment for details.
--- NOTE | 2018-03-22 17:20 | NUR ---
pt c/o pain given Dilaudid as ordered.
[2018-03-22] MEDS: ONDANSETRON HCL 4 MG/2 ML VIAL IVP PRN (18:31)
--- NOTE | 2018-03-22 18:33 | NUR ---
pt c/o nausea given Zofran as ordered.
--- NOTE | 2018-03-22 18:42 | NUR ---
closing note all needs met through shift, safety maintained, will endorse care to family practitioner.
--- NOTE | 2018-03-22 19:40 | NUR ---
ROUNDS PATIENT RESTING COMFORTABLY IN BED, NOT IN DISTRESS, VITALS STABLE. NO PAIN AND DISCOMFORT AT THIS TIME. ASSESSMENT DONE AND DOCUMENTED. SEE FLOWSHEET. NEEDS ATTENDED TO. SFETY AND FALL PRECAUTION MEASURES IN PLACED. BED IN LOW AND LOCKED POSITION. CALL LIGHT PLACED WITHIN REACH.
--- NOTE | 2018-03-22 21:14 | NUR ---
MEDICATION DUE MEDICATIONS GIVEN SCHEDULED, TOLERATED WELL. WILL CONTINUE TO MONITOR.
[2018-03-22] MEDS: LATANOPROST 2.5 ML DROPS (XALATAN) BOTH EYES SCH (21:24)
--- NOTE | 2018-03-23 00:14 | NUR ---
PATIENT RESTING: Patient resting quietly. No acute distress noted. Vital signs within normal range.
[2018-03-23 01:01] VITALS: BP_SYST 190
[2018-03-23] MEDS: HYDROmorphone 1 MG INJ. 1 MG/ML AMPUL IVP PRN ×6 (01:18→21:21)
[2018-03-23] MEDS: hydrALAZINE HCL 20 MG/ML VIAL IVP PRN ×3 (01:26→20:57)
--- NOTE | 2018-03-23 04:12 | NUR ---
PATIENT RESTING: Patient resting quietly. No acute distress noted. Vital signs within normal range.
--- NOTE | 2018-03-23 06:57 | NUR ---
CLOSING NOTES PATIENT AWAKE, VITALS STABLE, NO MORE PAIN AT THIS TIME. ALL NEEDS ATTENDED TO. SAFETY MEASURES MAINTAINED. BED IN LOW AND LOCKED POSITION. CALL LIGHT PLACED WITHIN REACH.
--- NOTE | 2018-03-23 07:51 | NUR ---
opening note pt in bed awake alert. no distress noted. pt with call light within reach, pt refusing bed alarm, bed in the lowest position.
[2018-03-23 08:00] VITALS: BP_SYST 204
[2018-03-23] MEDS: PANTOPRAZOLE SODIUM 40 MG TAB PO SCH (09:10)
[2018-03-23] MEDS: METOPROLOL TARTRATE 50 MG TABLET PO SCH ×2 (09:11→20:55)
[2018-03-23] MEDS: BRIMONIDINE TARTRATE 0.2% 5 mL EYE DROPS BOTH EYES SCH ×2 (09:16→20:55)
[2018-03-23] MEDS: TIMOLOL MALEATE 0.5% OPHTHALMIC DROPS 5 ML BOTH EYES SCH ×2 (09:17→20:54)
[2018-03-23 10:41] VITALS: BP_SYST 182
--- NOTE | 2018-03-23 11:02 | NUR ---
IV RE-INSERTION: Complaining of pain to IV site. Restarted on right hand 22 g. Will observe for any signs of infiltration.
--- NOTE | 2018-03-23 11:08 | NUR ---
prn hydralazine given.
--- NOTE | 2018-03-23 11:51 | NUR ---
blood sugar checked 125 no coverage needed.
--- NOTE | 2018-03-23 13:19 | NUR ---
pt complained of pain in his abdomen given dilaudid as ordered.
[2018-03-23 16:53] VITALS: BP_SYST 189
--- NOTE | 2018-03-23 17:24 | NUR ---
PT C/O ABD PAIN GIVEN DILAUDID ORDERED. BLOOD SUGAR ALSO CHECKED 147 NO COVERAGE PER MD SLIDING SCALE
--- NOTE | 2018-03-23 18:55 | NUR ---
closing note all needs met through shift, safety maintained, will endorse care to mold shifter,
--- NOTE | 2018-03-23 19:25 | NUR ---
Opening notes Received patient in bed resting comfortably aaox4 and able to verbalize their needs. IV on the left hand 22 gauge, flushed with good return, no infiltration. Refused bed alarm. Educated on risk and benefits and acknowledged understanding. Breath sounds diminished through out. Heart sound wnl. Bowel sounds active throughout. Abdominal pain 10/27. On 2L NC with 02 at 96%. SCD's refused. education provided but still refused DVT prophylaxis. Oriented patient to the room and use of the call light. Call light placed within reach and will cont to monitor on rounds.
[2018-03-23 20:00] VITALS: BP_SYST 185
[2018-03-23] MEDS: LATANOPROST 2.5 ML DROPS (XALATAN) BOTH EYES SCH (20:54)
--- NOTE | 2018-03-23 21:04 | NUR ---
Blood sugar 118. no insulin coverage needed.
[2018-03-23] MEDS: ONDANSETRON HCL 4 MG/2 ML VIAL IVP PRN (21:22)
--- NOTE | 2018-03-23 22:31 | NUR ---
Patient in bed resting. Family at bedside. Pain is tolerable at this time. No respiratory distress on 2L NC. Will cont to monitor.
[2018-03-24 00:32] VITALS: BP_SYST 177
--- NOTE | 2018-03-24 00:50 | NUR ---
Patient in bed, complaining of pain of 7/10 LUQ pain and tolerable. No respiratory distress, on 2L NC. Will medicate once available. Will cont to monitor.
[2018-03-24] MEDS: ONDANSETRON HCL 4 MG/2 ML VIAL IVP PRN ×5 (01:17→17:15)
[2018-03-24] MEDS: hydrALAZINE HCL 20 MG/ML VIAL IVP PRN ×4 (01:19→17:16)
[2018-03-24] MEDS: HYDROmorphone 1 MG INJ. 1 MG/ML AMPUL IVP PRN ×6 (01:19→20:31)
--- NOTE | 2018-03-24 02:40 | NUR ---
Patient in bed with no pain or respiratory distress. requested door to be closed. Call light placed within reach. Will cont to monitor on rounds
--- NOTE | 2018-03-24 04:49 | NUR ---
Patient is self inducing vomiting. Asking for Nausea medication and pain medication. Informed pain medication available time, and patient calmed down.
--- NOTE | 2018-03-24 06:29 | NUR ---
CLosing Notes Patient Blood Glucose, 127, no insulin coverage needed. Resting in bed with 2L NC with IV intact, clean and not infiltrated. No N/V at this time. All needs have been met. SCD's refused. Safety precautions in place, will endorse care to oncoming shift.
--- NOTE | 2018-03-24 07:32 | NUR ---
received patient from katiana Bryan RN. at the bedside. patient still sleepy. no sob noted. no pain noted. lungs bilaterally diminished at the bases. abdomen soft and non distended. dialysis patient. has rt upper chest permacath in placed. dry/intact. has iv access on the rt hand #22 dry/intact. no bleeding noted. will continue to monitor patients status.
[2018-03-24 08:03] VITALS: BP_SYST 186
[2018-03-24] MEDS: BRIMONIDINE TARTRATE 0.2% 5 mL EYE DROPS BOTH EYES SCH ×2 (09:00→20:33)
--- NOTE | 2018-03-24 09:34 | NUR ---
verbalized wants to have eye drops later.
--- NOTE | 2018-03-24 09:34 | NUR ---
complained of rt upper quadrant pain on the side of stomach. dilaudid 1 mg iv and zofran 4 mg iv given as ordered. made comfortable. continue to monitor patients status. assists on adls.
[2018-03-24] MEDS: PANTOPRAZOLE SODIUM 40 MG TAB PO SCH (09:39)
[2018-03-24] MEDS: METOPROLOL TARTRATE 50 MG TABLET PO SCH ×2 (09:40→20:31)
--- NOTE | 2018-03-24 10:20 | NUR ---
assists on adls. made comfortable.
--- NOTE | 2018-03-24 11:37 | NUR ---
eyedrops ordered given at this time, as requested by the patient.
[2018-03-24] MEDS: TIMOLOL MALEATE 0.5% OPHTHALMIC DROPS 5 ML BOTH EYES SCH ×2 (11:56→20:32)
--- NOTE | 2018-03-24 12:05 | NUR ---
latest bs is 137 mg/dl. no coverage given. apresoline 10 mg iv given for bp 186/96. no headache noted.
[2018-03-24 12:20] VITALS: BP_SYST 184
--- NOTE | 2018-03-24 13:13 | NUR ---
dr Hill came and see the patient.
--- NOTE | 2018-03-24 13:16 | NUR ---
at this time. patient asleep. no sob noted.
--- NOTE | 2018-03-24 13:43 | NUR ---
dr adams came and made order
--- NOTE | 2018-03-24 13:44 | NUR ---
Dr adams requested to have vitals signs checked. temp 99.1 hr 91, resp 20, bp 188/108. complained of pain grade 10/10.
--- NOTE | 2018-03-24 13:53 | NUR ---
complained of pain on the rt upper quadrant abdominal pain and swollen rt face and hot to touch. dr adams saw it. dilaudid 1 mg iv and zofran 4mg iv with 10cc flush normal saline.
--- NOTE | 2018-03-24 13:55 | NUR ---
cbc and bmp drawn
[2018-03-24] MEDS ORDERED: cefTRIAXone 1 GM in D5W 50 ML IV SCH (14:00)
[2018-03-24 14:23] LABS: POTASSIUM 5.8 mmol/L (3.5-5.1)
[2018-03-24 14:24] LABS: CREATININE 9.14 mg/dL (0.55-1.30)
[2018-03-24 14:29] LABS: HEMOGLOBIN 12.4 g/dL (14.0-18.0); RED BLOOD CELL COUNT(AUTO) 3.99 MIL/uL (4.2-6.2); WHITE BLOOD COUNT (AUTO) 23.3 K/uL (4.8-10.8)
[2018-03-24 14:30] LABS: MEAN CORPUSCULAR HEMOGLOBIN 31 pg (27-31); MEAN CORPUSCULAR HGB CONC 33 % (32-36); MEAN CORPUSCULAR VOLUME 95 fL (79.0-98.0); PLATELET COUNT (AUTO) 284 K/uL (130-430); RED CELL DISTRIBUTION WIDTH 14.7 % (9.0-15.0)
[2018-03-24] MEDS ORDERED: VANCOMYCIN HCL 1,500 MG in NS 250 ML IV ONE (14:30)
[2018-03-24 14:41] LABS: BASOPHILS % (MANUAL) 0 % (0-2); EOSINOPHILS % (MANUAL) 0 % (0-7); LYMPHOCYTES % (MANUAL) 6 % (20-46); MONOCYTES % (MANUAL) 7 % (0-11)
[2018-03-24] MEDS: cloNIDine HCL 0.2 MG TABLET PO PRN (14:44)
--- NOTE | 2018-03-24 15:04 | NUR ---
dr adams made aware of Creatinine 9.14. no order made. informed of temp 100.1 gave tylenol 2 tabs now and q 6 prn for fever and pain.
[2018-03-24] MEDS ORDERED: ACETAMINOPHEN 325 MG TABLET PO PRN (15:15)
[2018-03-24 16:10] VITALS: BP_SYST 190
--- NOTE | 2018-03-24 16:27 | NUR ---
mother and dad at the bedside. will continue to monitor patients status.
--- NOTE | 2018-03-24 16:40 | NUR ---
went to CT for the rt face done. pending results
--- NOTE | 2018-03-24 17:39 | NUR ---
vancomycin iv given at this time. pain about grade of 4. made comfortable.
--- NOTE | 2018-03-24 17:43 | NUR ---
offered norco tablet, but refuses. eating dinner at this time.
--- NOTE | 2018-03-24 18:31 | NUR ---
latest bs is 140mg/dl. no coverage given at this time.
--- NOTE | 2018-03-24 19:06 | NUR ---
for hemodialysis in am, as ordered by dr rausch. ordered given to the nursing particle board supervisor
--- NOTE | 2018-03-24 19:46 | NUR ---
endorsed to incoming nite nurse CHOCO SOUTH. at the bedside.
--- NOTE | 2018-03-24 19:48 | NUR ---
OPENING NOTE Patient resting in the bed. No acute distress. Respiration even and unlabored. On O2 2L/min via NC. AAO x 4. No c/o pain at this time. Skin warm and dry to touch. SL intact to LFA, no redness, no swelling, patent. Right upper chest Perma cath intact with dry dressing, no bleeding noted. Family at bedside. Discussed the safety issue, use call light when need help, and plan of care, verbally understanding. Safety measure maintained. Bed locked in low position, side rails up. Call light within reached. Will continue to monitor.
[2018-03-24 20:00] VITALS: BP_SYST 160
--- NOTE | 2018-03-24 20:31 | NUR ---
DILAUDID GIVEN Patient c/o right abdomen pain 10/27, Dilaudid 1mg IVP given as ordered. No acute distress. Continue on O2 2L/min via NC. Safety measure maintained. Bed locked in low position, side rails up. Call light within reached. Continue to monitor.
[2018-03-24] MEDS: LATANOPROST 2.5 ML DROPS (XALATAN) BOTH EYES SCH (20:34)
[2018-03-24] MEDS: INSULIN REGULAR, HUMAN 100 UNITS/ML, 10 ML VIAL (novoLIN R) SUBCUT PRN (20:47)
--- NOTE | 2018-03-24 22:25 | NUR ---
DR. MAXWELL ,[facility], [facility] Dr. Maxwell assessed patient at bedside. Will check any order.
[2018-03-24] MEDS ORDERED: SODIUM POLYSTYRENE SULFONATE 15 GM/60 ML UDBTL PO ONE (23:00)
[2018-03-24 23:27] VITALS: BP_SYST 156
--- NOTE | 2018-03-24 23:33 | NUR ---
CONSULT REASON FOR CONSULT: SEPSIS PERSON I SPOKE WITH: ELISSA CONSULTING PHYSICIAN: DR. GUERRERO HOOP FLARING MACHINE OPERATOR PHONE NUMBER: [phone] ORDERING PHYSICIAN: DR. MAXWELL
[2018-03-25] MEDS: HYDROmorphone 1 MG INJ. 1 MG/ML AMPUL IVP PRN ×8 (00:28→21:46)
--- NOTE | 2018-03-25 00:29 | NUR ---
DILAUDID GIVEN Patient c/o abdomen pain 10/27, Dilaudid 1mg IVP given as ordered. No acute distress. Continue on O2 2L/min via NC. Safety measure maintained. Bed locked in low position, side rails up. Call light within reached. Continue to monitor.
--- NOTE | 2018-03-25 01:20 | NUR ---
ROUND Patient resting in the bed comfortable. No acute distress. Respiration even and unlabored. Continue on O2 2L/min via NC. Safety measure maintained. Call light within reached. Bed locked in low position, side rails up. Continue to monitor.
--- NOTE | 2018-03-25 03:43 | NUR ---
DILAUDID GIVEN Patient c/o left abdomen pain 10/27, Dilaudid 1mg IVP given as ordered. No acute distress. Continue on O2 2L/min via NC. Safety measure maintained. Bed locked in low position, side rails up. Call light within reached. Continue to monitor.
--- NOTE | 2018-03-25 05:02 | NUR ---
ROUND Patient resting in the bed comfortable. No acute distress. Respiration even and unlabored. Continue on O2 2L/min via NC. Safety measure maintained. Bed locked in low position, side rails up, bed alarm on. Call light within reached. Continue to monitor.
--- NOTE | 2018-03-25 06:53 | NUR ---
CLOSING NOTE Patient resting in the bed. No acute distress. Respiration even and unlabored. Continue nn O2 2L/min via NC. Pain med give around clock. Skin warm and dry to touch. SL intact to LFA, no redness, no swelling, patent. Right upper chest Perma cath intact with dry dressing, no bleeding noted. All needs met. Hourly rounding during shift. Safety measure maintained. Bed locked in low position, side rails up. Call light within reached. Will endorse to morning shift nurse.
[2018-03-25 08:00] VITALS: BP_SYST 189
--- NOTE | 2018-03-25 08:00 | NUR ---
RN OPENING NOTE PATIENT IS RESTING ON BED, ALERT ORIENTED X4, PATIENT DENIES PAIN OR DISCOMFORT. PATIENT WAS ASSESSED, VITAL SIGNS SHOW HIGH BLOOD PRESSURE, WILL BE GIVING THE PATIENT HIS PRN PRESSURE MEDICATION. , BED AT LOW POSITION AND CALL LIGHT WITHIN REACH, WILL CONTINUE TO MONITOR.
[2018-03-25] MEDS: PANTOPRAZOLE SODIUM 40 MG TAB PO SCH (08:35)
[2018-03-25] MEDS: METOPROLOL TARTRATE 50 MG TABLET PO SCH ×2 (08:35→22:00)
[2018-03-25] MEDS: hydrALAZINE HCL 20 MG/ML VIAL IVP PRN (08:36)
[2018-03-25] MEDS: BRIMONIDINE TARTRATE 0.2% 5 mL EYE DROPS BOTH EYES SCH ×2 (08:37→21:47)
[2018-03-25] MEDS: TIMOLOL MALEATE 0.5% OPHTHALMIC DROPS 5 ML BOTH EYES SCH ×2 (08:38→21:47)
[2018-03-25 09:00] VITALS: BP_SYST 154
[2018-03-25 10:00] VITALS: BP_SYST 154
--- NOTE | 2018-03-25 10:00 | NUR ---
RN NOTE PATIENT WAS HAVING PAIN IN HIS ABDOMEN, ON 0/10 SCALE IS 9/10, PATIENT WAS GIVEN HIS PRN DILAUDID IVP. PATIENT PAIN WENT DOWN TO ZERO. PATIENT WILL BE RECEIVING HEMODIALYSIS TODAY, PATIENT FINISHED EATING HIS BREAKFAST AND WAS GIVEN HIS MEDICATIONS. HE WAS TAUGHT ABOUT THE SIDE EFFECTS OF ONE OF THEM, PATIENT VERBALIZED UNDERSTANDING, PATIENT NOW DENIES PAIN OR DISCOMFORT. WILL CONTINUE TO MONITOR.
[2018-03-25 11:35] VITALS: BP_SYST 161
[2018-03-25] MEDS ORDERED: DEXTROSE 50%-WATER 50 ML DISP.SYRIN IVP PRN (12:00)
[2018-03-25] MEDS ORDERED: D5W 1,000 ML IV PRN (12:00)
[2018-03-25] MEDS ORDERED: GLUCOSE 15 GM GEL (in 37.5 GM TUBE) PO PRN (12:00)
--- NOTE | 2018-03-25 12:00 | NUR ---
RN NOTE PATIENT GOT HIS ZOSYN ANTIBIOTICS. HD NURSE IS HERE, WILL START SOON HIS HD. WILL CONTINUE TO MONITOR. PATIENT WAS SERVED HIS LUNCH,
[2018-03-25] MEDS: PIPERACILLIN/TAZO 2.25G/DEX-IS 50 ML IV SCH ×2 (12:03→17:34)
[2018-03-25] MEDS: MICAFUNGIN SODIUM 100 MG in NS 100 ML IV SCH (12:04)
--- NOTE | 2018-03-25 16:00 | NUR ---
RN NOTE PATIENT RESTING ON BED, HIS IV SITE ON THE LEFT HAND HAS INFILTERATED, AND A NEW IV SITE IS NOW ON THE RIGHT FORARM, PATIENT TOLERATED VERY WELL. PATIENT DENIES PAIN OR DISCOMFORT. WILL BE GIVEN HIS MEDICATION. AND CT SCAN OF THE RIGHT FACE CAME BACK AND WAS SHOWN TO DR. MAXWELL, WILL CONTINUE TO MONITOR.
[2018-03-25 16:16] VITALS: BP_SYST 148
[2018-03-25] MEDS: INSULIN REGULAR, HUMAN 100 UNITS/ML, 10 ML VIAL (novoLIN R) SUBCUT PRN (17:40)
--- NOTE | 2018-03-25 17:56 | NUR ---
IV RE-INSERTION: Complaining of pain/swelling to IV site. Restarted on right forearm g.22. Successful after 1 attempts. Will observe for any signs of infiltration.
--- NOTE | 2018-03-25 18:00 | NUR ---
RN CLOSING NOTE PATIENT RESTING ON BED, WAS SERVED HIS DINNER, PATIENT BLOOD SUGAR WAS MEASURED AND COVERED WITH HIS INSULIN ACCORDING TO HIS SLIDING SCALE. FAMILY MEMBERS BY BEDSIDE, PATIENT'S BED AT LOW POSITION AND CALL LIGHT WITHIN REACH, WILL ENDORSE TO NEXT SHIFT.
[2018-03-25 19:52] VITALS: BP_SYST 169
--- NOTE | 2018-03-25 19:52 | NUR ---
INITIAL NOTE AT INITIAL ASSESSMENT, PATIENT IS RESTING IN BED, STABLE, NO SIGNS OF RESPIRATORY DISTRESS. FAMILY IS AT BEDSIDE. PATIENT VERBALIZES NO PAIN. PLAN OF CARE FOR THE EVENING IS COMMUNICATED WITH THE PATIENT AND HIS FAMILY. CALL LIGHT- TEACH BACK IS SUCCESSFUL. FALL, SAFETY, AND RESPIRATORY PRECAUTIONS WILL BE IN PLACE THROUGHOUT THE SHIFT.
[2018-03-25] MEDS: LATANOPROST 2.5 ML DROPS (XALATAN) BOTH EYES SCH (21:47)
--- NOTE | 2018-03-25 21:50 | NUR ---
NOTE BLOOD SUGAR CHECK AT THIS TIME REQUIRES NO INSULIN COVERAGE PER SSI ORDERED BY MD. PATIENT IS RESTING IN BED, STABLE, NO SIGNS OF RESPIRATORY DISTRESS. CALL LIGHT WITHIN REACH. BED IS LOCKED, ALARMED, AND AT THE LOWEST LEVEL.
--- NOTE | 2018-03-25 23:47 | NUR ---
NOTE PATIENT IS RESTING IN BED, STABLE, NO SIGNS OF RESPIRATORY DISTRESS. CALL LIGHT WITHIN REACH. BED IS LOCKED, ALARMED, AND AT THE LOWEST LEVEL.
[2018-03-26] MEDS: HYDROmorphone 1 MG INJ. 1 MG/ML AMPUL IVP PRN ×8 (00:50→22:16)
[2018-03-26] MEDS: PIPERACILLIN/TAZO 2.25G/DEX-IS 50 ML IV SCH ×5 (00:51→23:33)
[2018-03-26 01:25] VITALS: BP_SYST 178; BP_SYST 201
--- NOTE | 2018-03-26 01:45 | NUR ---
NOTE PATIENT IS RESTING IN BED, STABLE, NO SIGNS OF RESPIRATORY DISTRESS. CALL LIGHT WITHIN REACH. BED IS LOCKED, ALARMED, AND AT THE LOWEST LEVEL.
[2018-03-26] MEDS: cloNIDine HCL 0.2 MG TABLET PO PRN (02:25)
--- NOTE | 2018-03-26 03:42 | NUR ---
NOTE PRN MEDICATION FOR SEVERE PAIN IS GIVEN FOR PATIENT'S COMPLAINT OF SEVERE PAIN. PATIENT IS POSITIONED FOR COMFORT. PATIENT IS RESTING IN BED, STABLE, NO SIGNS OF RESPIRATORY DISTRESS. CALL LIGHT WITHIN REACH. BED IS LOCKED, ALARMED, AND AT THE LOWEST LEVEL.
--- NOTE | 2018-03-26 05:40 | NUR ---
FACIAL ABSCESS DRAINING PATIENT'S ABSCESS ON HIS RIGHT CHEEK HAS "POPPED" HE VERBALIZES THAT HE FELT LOST OF FLUID COME OUT. UPON ASSESSMENT, PATIENT HAS SOME WHITE/ CLEAR DRAINAGE FROM HIS RIGHT CHEEK, IT IS CLEANSED WITH NS, PATTED DRY, AND BAND AID IS APPLIED. WILL CONTINUE TO MONITOR CLOSELY.
--- NOTE | 2018-03-26 06:55 | NUR ---
CLOSING NOTE BLOOD SUGAR CHECK AT THIS TIME REQUIRES NO INSULIN COVERAGE PER SSI ORDERED BY MD. CALL LIGHT IS WITHIN REACH. BED IS LOCKED, AND AT THE LOWEST LEVEL. FALL AND SAFETY PRECAUTIONS HAVE BEEN IN PLACE THROUGHOUT THE SHIFT. WILL CONTINUE TO MONITOR UNTIL SHIFT REPORT IS GIVEN AT BEDSIDE TO AM NURSE.
[2018-03-26 08:00] VITALS: BP_SYST 167
--- NOTE | 2018-03-26 08:00 | NUR ---
Opening Note received report from desizing pad operator RN, pt resting in bed, A&Ox4, respirations even and unlabored, pt reports pain is controlled, no acute distress noted, IV site clean, dry, and intact, SCDs in place, pt educated on use of call light and asked to call for assistance, pt verbalized understanding, call light in reach, bed in low and locked position, bed alarm on, fall and aspiration precautions in place.
[2018-03-26 08:45] LABS: CALCIUM 8.3 mg/dL (8.4-11.0)
[2018-03-26 09:22] LABS: ALBUMIN 2.6 g/dL (3.4-4.8); TOTAL BILIRUBIN 0.5 mg/dL (0.0-1.0)
[2018-03-26 09:25] LABS: CREATININE 8.71 mg/dL (0.55-1.30)
[2018-03-26 09:36] LABS: HEMATOCRIT 30.1 % (36-54); HEMOGLOBIN 9.9 g/dL (14.0-18.0); RED BLOOD CELL COUNT(AUTO) 3.09 MIL/uL (4.2-6.2); WHITE BLOOD COUNT (AUTO) 18.5 K/uL (4.8-10.8)
[2018-03-26 09:37] LABS: BASOPHILS % (AUTO) 0.2 % (0.0-2.0); EOSINOPHILS # (AUTO) 0.1 K/uL (0.0-0.4); EOSINOPHILS % (AUTO) 0.3 % (0.0-4.0); LYMPHOCYTES # (AUTO) 1.6 K/uL (1.0-5.5); LYMPHOCYTES % (AUTO) 8.4 % (20.5-51.5); MEAN CORPUSCULAR HEMOGLOBIN 32 pg (27-31); MEAN CORPUSCULAR HGB CONC 33 % (32-36); MEAN CORPUSCULAR VOLUME 97 fL (79.0-98.0); MONOCYTES # (AUTO) 1.3 K/uL (0.0-1.0); MONOCYTES % (AUTO) 7.1 % (1.7-9.3); NEUTROPHILS # (AUTO) 15.5 K/uL (1.8-7.7); PLATELET COUNT (AUTO) 215 K/uL (130-430); RED CELL DISTRIBUTION WIDTH 14.3 % (9.0-15.0)
[2018-03-26] MEDS: PANTOPRAZOLE SODIUM 40 MG TAB PO SCH (09:59)
[2018-03-26] MEDS: METOPROLOL TARTRATE 50 MG TABLET PO SCH ×2 (09:59→22:26)
[2018-03-26] MEDS: BRIMONIDINE TARTRATE 0.2% 5 mL EYE DROPS BOTH EYES SCH ×2 (10:01→22:17)
[2018-03-26] MEDS: TIMOLOL MALEATE 0.5% OPHTHALMIC DROPS 5 ML BOTH EYES SCH ×2 (10:01→22:17)
--- NOTE | 2018-03-26 10:10 | NUR ---
Pain Management/Medication pt complaint of pain 8/10 to left upper abdomen, pt educated on use and side effects of PRN dilaudid and all medications, pt verbalized understanding, tolerated medication administration well, no acute distress noted, pt temp 99.2, cooling measures implemented, extra blankets removed, cool packs provided, fall and aspiration precautions in place.
--- NOTE | 2018-03-26 11:35 | NUR ---
Blood glucose blood glucose 122, no insulin indicated per sliding scale orders, no acute distress noted, no additional needs at this time, fall and aspiration precautions in place.
[2018-03-26] MEDS: MICAFUNGIN SODIUM 100 MG in NS 100 ML IV SCH (11:57)
--- NOTE | 2018-03-26 12:04 | NUR ---
Medication pt educated on medication use and side effects, pt verbalized understanding, tolerating medication administration well, no acute distress noted, pt eating lunch, fall and aspiration precautions in place.
[2018-03-26 12:08] VITALS: BP_SYST 159
[2018-03-26 13:01] LABS: VANCOMYCIN,RANDOM 17.2 ug/mL
--- NOTE | 2018-03-26 13:10 | NUR ---
Pain Management/Medication/Warm compress pt complaint of pain 8/10 to left upper abdomen, pt educated on use and side effects of PRN dilaudid and all medications, pt verbalized understanding, tolerated medication administration well, no acute distress noted, pt provided with warm compress to left face per MD orders, no additional needs at this time, fall and aspiration precautions in place.
--- NOTE | 2018-03-26 15:32 | NUR ---
RN Rounds pt resting in bed, temp 98.8, respirations even and unlabored, no acute distress noted, family at bedside, no additional needs at this time, fall and aspiration precautions in place.
--- NOTE | 2018-03-26 16:07 | NUR ---
Pain Management/Medication/Hemodialysis pt complaint of pain 8/10 to left upper abdomen, pt educated on use and side effects of PRN dilaudid, pt verbalized understanding, tolerated medication administration well, no acute distress noted, senior svp at bedside starting dialysis, family at bedside, fall and aspiration precautions in place.
[2018-03-26 16:46] VITALS: BP_SYST 159
--- NOTE | 2018-03-26 17:00 | NUR ---
ENT consult called: for Dr. Harmon, regarding facial abscess, ordered by Dr. Hill, spoke with
[2018-03-26] MEDS ORDERED: HEPARIN SODIUM,PORCINE 5000 UNITS/ML VIAL MC ONE (17:15)
[2018-03-26] MEDS: INSULIN REGULAR, HUMAN 100 UNITS/ML, 10 ML VIAL (novoLIN R) SUBCUT PRN (17:32)
--- NOTE | 2018-03-26 17:43 | NUR ---
Blood glucose/Medication blood glucose 163, pt educated on use and side effects of insulin per sliding scale orders and all medications, pt verbalized understanding, tolerated medication administration well, 2 doses of heparin 5,000 units for post hemodialysis, to be administered by stenocaptioner, no acute distress noted, stenocaptioner at bedside, fall and aspiration precautions in place.
[2018-03-26] MEDS ORDERED: VANCOMYCIN HCL 1,500 MG in NS 250 ML IV SCH (18:00)
--- NOTE | 2018-03-26 18:21 | NUR ---
Medication pt educated on medication use and side effects, pt verbalized understanding, tolerating medication administration well, no acute distress noted, coastal tug mate at bedside, vital signs stable, fall and aspiration precautions in place.
--- NOTE | 2018-03-26 18:50 | NUR ---
Hemodialysis hemodialysis completed at this time, 3L out, BP 154/95, no acute distress noted, no bleeding noted, permacath dressing change completed by user experience team lead, no additional needs at this time, fall and aspiration precautions in place.
--- NOTE | 2018-03-26 19:08 | NUR ---
Pain Management/Medication pt complaint of pain 8/10 to upper left abdomen, pt educated on use and side effects of PRN dilaudid, pt verbalized understanding, vital signs stable, pt tolerated medication administration well, no acute distress noted, fall and aspiration precautions in place.
--- NOTE | 2018-03-26 19:20 | NUR ---
Closing Note pt resting in bed, A&Ox4, respirations even and unlabored on 2L nasal cannula, pt provided with warm compress per orders to left side of face, no acute distress noted, IV site clean, dry, and intact, permacath to right chest intact, no bleeding, pt educated on use of call light and asked to call for assistance, pt verbalized understanding, call light in reach, bed in low and locked position, bed alarm on, fall and aspiration precautions in place, care endorsed to Virgilio SOUTH.
--- NOTE | 2018-03-26 19:46 | NUR ---
INITIAL NOTE AT INITIAL ASSESSMENT, PATIENT IS RESTING IN BED, STABLE, NO SIGNS OF RESPIRATORY DISTRESS. FAMILY IS AT BEDSIDE. PATIENT VERBALIZES TOLERABLE PAIN. PLAN OF CARE FOR THE EVENING IS COMMUNICATED WITH THE PATIENT AND HIS FAMILY. CALL LIGHT- TEACH BACK IS SUCCESSFUL. FALL, SAFETY, AND RESPIRATORY PRECAUTIONS WILL BE IN PLACE THROUGHOUT THE SHIFT.
[2018-03-26 19:52] VITALS: BP_SYST 155
[2018-03-26] MEDS: LATANOPROST 2.5 ML DROPS (XALATAN) BOTH EYES SCH (22:18)
--- NOTE | 2018-03-26 23:43 | NUR ---
NOTE PATIENT IS RESTING IN BED, STABLE, NO SIGNS OF RESPIRATORY DISTRESS. FAMILY IS AT BEDSIDE. CALL LIGHT WITHIN REACH. BED IS LOCKED, ALARMED, AND AT THE LOWEST LEVEL.
[2018-03-27] VITALS: BP_SYST 213
[2018-03-27] MEDS: HYDROmorphone 1 MG INJ. 1 MG/ML AMPUL IVP PRN ×8 (01:16→23:14)
[2018-03-27] MEDS: cloNIDine HCL 0.2 MG TABLET PO PRN ×3 (01:24→19:51)
--- NOTE | 2018-03-27 01:40 | NUR ---
NOTE PATIENT IS SLEEPING, STABLE, NO SIGNS OF RESPIRATORY DISTRESS. CALL LIGHT WITHIN REACH. BED IS LOCKED, ALARMED, AND AT THE LOWEST LEVEL.
[2018-03-27] MEDS: ONDANSETRON HCL 4 MG/2 ML VIAL IVP PRN ×2 (02:02→21:16)
--- NOTE | 2018-03-27 03:38 | NUR ---
NOTE PATIENT IS RESTING IN BED, STABLE, NO SIGNS OF RESPIRATORY DISTRESS. CALL LIGHT WITHIN REACH. BED IS LOCKED, ALARMED, AND AT THE LOWEST LEVEL.
--- NOTE | 2018-03-27 05:32 | NUR ---
NOTE PATIENT IS SLEEPING, STABLE, NO SIGNS OF RESPIRATORY DISTRESS. CALL LIGHT WITHIN REACH. BED IS LOCKED, ALARMED, AND AT THE LOWEST LEVEL.
[2018-03-27] MEDS: PIPERACILLIN/TAZO 2.25G/DEX-IS 50 ML IV SCH ×4 (06:57→23:17)
--- NOTE | 2018-03-27 06:59 | NUR ---
CLOSING NOTE BLOOD SUGAR CHECK AT THIS TIME REQUIRES NO INSULIN COVERAGE PER SSI ORDERED BY MD. PRN MEDICATION FOR SEVERE PAIN GIVEN AT THIS TIME FOR PATIENT'S COMPLAINT OF SEVERE PAIN. CALL LIGHT IS WITHIN REACH. BED IS LOCKED, AND AT THE LOWEST LEVEL. FALL AND SAFETY PRECAUTIONS HAVE BEEN IN PLACE THROUGHOUT THE SHIFT. WILL CONTINUE TO MONITOR UNTIL SHIFT REPORT IS GIVEN AT BEDSIDE TO AM NURSE.
--- NOTE | 2018-03-27 07:44 | NUR ---
Opening Note received report from shiftman RN, pt resting in bed, A&Ox4, respirations even and unlabored on 2L nasal cannula, pt reports pain is controlled, no acute distress noted, IV site clean, dry, and intact, permacath to right upper chest clean, dry, and intact, no bleeding, pt educated on use of call light and asked to call for assistance, pt verbalized understanding, call light in reach, bed in low and locked position, bed alarm on, fall and aspiration precautions in place.
[2018-03-27 08:00] VITALS: BP_SYST 204
[2018-03-27 09:49] VITALS: BP_SYST 155
[2018-03-27] MEDS: PANTOPRAZOLE SODIUM 40 MG TAB PO SCH (10:07)
[2018-03-27] MEDS: BRIMONIDINE TARTRATE 0.2% 5 mL EYE DROPS BOTH EYES SCH ×2 (10:09→21:18)
[2018-03-27] MEDS: TIMOLOL MALEATE 0.5% OPHTHALMIC DROPS 5 ML BOTH EYES SCH ×2 (10:09→21:18)
[2018-03-27] MEDS: METOPROLOL TARTRATE 50 MG TABLET PO SCH ×2 (10:09→21:16)
--- NOTE | 2018-03-27 10:17 | NUR ---
Pain Management/Medication pt complaint of pain 8/10 to left upper abdomen, pt educated on use and side effects of PRN pain medication and all medications, pt verbalized understanding, tolerated medication administration well, no acute distress noted, fall and aspiration precautions in place.
--- NOTE | 2018-03-27 11:26 | NUR ---
Blood glucose/Blood pressure blood glucose 113, no insulin indicated per sliding scale orders, blood pressure 194/105, PRN catapres indicated per orders, pt educated on use and side effects of PRN catapres, pt verbalized understanding, tolerated medication administration well, no acute distress noted, fall and aspiration precautions in place.
[2018-03-27 11:29] VITALS: BP_SYST 199
--- NOTE | 2018-03-27 12:19 | NUR ---
Medication pt educated on medication use and side effects, pt verbalized understanding, tolerating medication administration well, no acute distress noted, fall and aspiration precautions in place.
[2018-03-27] MEDS: MICAFUNGIN SODIUM 100 MG in NS 100 ML IV SCH (13:11)
--- NOTE | 2018-03-27 13:20 | NUR ---
Pain Management/Medication pt complaint of pain 8/10 to left upper abdomen, pt educated on use and side effects of PRN dilaudid and all medications, pt verbalized understanding, tolerated medication administration well, no acute distress noted, fall and aspiration precautions in place.
[2018-03-27] MEDS: hydrALAZINE HCL 20 MG/ML VIAL IVP PRN (13:30)
--- NOTE | 2018-03-27 13:33 | NUR ---
Blood pressure blood pressure 181/95, PRN apresoline indicated per orders, pt educated on use and side effects of PRN apresoline, pt verbalized understanding, tolerated medication administration well, no acute distress noted, network operations project manager at bedside speaking with pt, fall and aspiration precautions in place.
--- NOTE | 2018-03-27 13:50 | NUR ---
Nutrition F/U Admitting Diagnosis Hyperkalemia Reviewed Pertinent Medical/Surgical Hx Medical Record Patient Family Member Medical History Comment: PMH: type 1 DM, gastroparesis, hyperkalemia, ESRD/HD, morbid obesity, legally blind/diabetic retinopathy, non-compliance, anemia of chronic illness, obesity, cardiomegaly and hypertensive heart Dz, constipation, chronic pain syndrome, malfunction of HD catheter/replaced on 02/20/18, non-compliance w/ food per MD notes Pt also found w/ intractable vomiting per MD notes New dental abscess/R facial cellulitis per MD notes 03/27/18 Subjective Information Pt seen resting in bed after lunch at time of RD visit. RN in room providing care. Pt stated that he has been tolerating regular-textured renal diet despite R facial swelling. Pt was not interested in diet texture modification. Pt was interested in help w/ menu selections as he is blind. RD notified [facility] staff to aid pt in selecting food preferences/menu. Pt reported BM yesterday -- no c/o N/V/C/D. Current diet remains appropriate/adequate. Current Diet Order/Nutrition Support Renal x6 days Patient/Significant Other Able To Verbalize Education Provided Not Indicated/Interested Pertinent Medications vancomycin/NaCl IV, piperacillin/tazobactam IV, protonix, reglan Pertinent Labs Na 130 L, K 5 WNL (improved), BG 114H, POC BG 113 H, BUN 52 H, CRE 8.7 H, HgA1c 5.3 WNL, WBC 18.5 H, H/H 9.9 L/30.1 L Height (Feet) 5 feet Height (Inches) 10.00 inches Weight (Pounds) 264 pounds (03/22/18) NEW DOCUMENTED WT: 259 lb, 117 kg (03/27/18) -- likely taken by nursing staff Weight (Calculated Kilograms) 119.493221 kilograms Patient Weight 119.748 kg Body Mass Index 37.88 kg/m2 Usual Weight 240 lbs %UBW 102 %IBW 179 [place]/Adjusted Body Weight IBW: 148 lb, 67 kg. Adj IBW (obesity): 177 lb, 80 kg Recent Weight Change No - pt denied any recent wt change Weight Status Obese Gastrointestinal Symptoms None Food Allergies No Usual Diet At Home Renal Skin Integrity Comment: Buddy scale: 19; per nursing notes, R face w/ wound; generalized non-pitting edema; R face w/ non-pitting edema Current % PO 70% average x13 meals Estimated Energy Expenditure (kcals/day) 8466-8504 kcal/day (25-30 kcal/kg Adj IBW for maintenance) Estimated Protein Required (g/day) 96-112 gm/day (1.2-1.4 gm/kg Adj IBW for ESRD on HD) Estimated Fluid Required (l/day) Per MD (ESRD) Problem/Etiology/Signs/Symptoms Altered nutrition-related labs related to endocrine and renal dysfunction as evidenced by abnormal BG, POC BG BUN, and CRE lab values. *ongoing Expected Outcomes/Goals - Monitor appetite and PO intakes w/ goal of pt meeting at least 75% of estimated nutritional needs, labs trending WNL, normal GI function, and skin integrity/wt maintenance Dietitian Recommendations * Recommend continuing renal diet per MD Follow Up Low Risk: F/U in 7 days
--- NOTE | 2018-03-27 13:55 | NUR ---
Dietitian Recommendations * Recommend continuing renal diet per LP, RD Please refer to Nutrition F/U for details.
--- NOTE | 2018-03-27 14:01 | NUR ---
MD Rounds Dr. Harmon at bedside examining patient, orders to photograph right facial swelling daily, verified with read back.
--- NOTE | 2018-03-27 15:50 | NUR ---
Blood pressure blood pressure 148/86, PRN medications for BP not indicated per orders, no acute distress noted, respirations even and unlabored on room air, fall and aspiration precautions in place.
[2018-03-27 15:53] VITALS: BP_SYST 148
--- NOTE | 2018-03-27 16:20 | NUR ---
Pain Management/Medication pt complaint of pain 8/10 to left upper abdomen, pt educated on use and side effects of PRN dilaudid, pt verbalized understanding, vital signs stable, pt tolerated medication administration well, no acute distress noted, fall and aspiration precautions in place.
--- NOTE | 2018-03-27 17:10 | NUR ---
IV placement pt complaint of pain at IV site, IV catheter removed, catheter intact, no bleeding, pt educated on purpose and procedure for IV catheter placement, pt verbalized understanding, new IV 22G placed to right forearm, pt tolerated well, flushes easily with blood return, no acute distress noted, fall and aspiration precautions in place.
[2018-03-27] MEDS: INSULIN REGULAR, HUMAN 100 UNITS/ML, 10 ML VIAL (novoLIN R) SUBCUT PRN (17:27)
--- NOTE | 2018-03-27 17:29 | NUR ---
Blood glucose/Medication blood glucose 155, pt educated on use and side effects of insulin per sliding scale orders and all medications, pt verbalized understanding, tolerated medication administration well, pt in bed eating dinner, family at bedside, no additional needs at this time, fall and aspiration precautions in place.
--- NOTE | 2018-03-27 18:10 | NUR ---
Culture/Photograph daily photograph of pts right face taken and placed in chart per orders, unable to obtain culture of fluid from abscess due to no fluid being produced at this time, no additional needs at this time, fall and aspiration precautions in place.
--- NOTE | 2018-03-27 19:05 | NUR ---
Closing Note pt resting in bed, A&Ox4, respirations even and unlabored on 2L nasal cannula, no acute distress noted, IV site clean, dry, and intact, pts family at bedside, pt educated on use of call light and asked to call for assistance, pt verbalized understanding, call light in reach, bed in low and locked position, bed alarm on, fall and aspiration precautions in place, care endorsed to Abelino SOUTH.
--- NOTE | 2018-03-27 20:15 | NUR ---
DILAUDID 1 MG IVP ADMINISTER FOR GENERAL PAIN 09/26 as ordered .
[2018-03-27 20:19] VITALS: BP_SYST 172
[2018-03-27] MEDS: LATANOPROST 2.5 ML DROPS (XALATAN) BOTH EYES SCH (21:19)
--- NOTE | 2018-03-27 22:01 | NUR ---
CLONIDINE 0.2 MG PO GIVEN FOR ELEVATED BLOOD PRESSURE 172/95 & HELPFUL 142/88 .
--- NOTE | 2018-03-27 22:04 | NUR ---
ZOFRAN 4 MG IVP administer for general NAUSEA as ordered patient awake also alert .
--- NOTE | 2018-03-27 22:12 | NUR ---
HEMODIALYSIS ORDERS GIVEN TO SWEAT BOX ATTENDANT MICHAEL SOUTH .
--- NOTE | 2018-03-27 22:14 | NUR ---
Patient for HDX this AM . Addendum: 03/27/18 at 2215 by Abelino Araujo RN HEMODIALYSIS .
[2018-03-28] VITALS: BP_SYST 163
[2018-03-28] MEDS: HYDROmorphone 1 MG INJ. 1 MG/ML AMPUL IVP PRN ×7 (02:37→21:35)
--- NOTE | 2018-03-28 03:02 | NUR ---
DILAUDID 1 MG IVP ADMINISTER FOR GENERAL PAIN 09/26 & helpful .
--- NOTE | 2018-03-28 03:03 | NUR ---
PHOTO PICTURE TAKEN OF Right chin facial abscess & put in medical Record / .
[2018-03-28] MEDS: PIPERACILLIN/TAZO 2.25G/DEX-IS 50 ML IV SCH ×2 (05:56→12:21)
[2018-03-28] MEDS: ALBUTEROL SULFATE 0.083% 2.5 MG/3 ML VIAL.NEB INH PRN (07:05)
[2018-03-28 07:24] LABS: HEMATOCRIT 28.4 % (36-54); HEMOGLOBIN 9.5 g/dL (14.0-18.0); MEAN CORPUSCULAR VOLUME 95 fL (79.0-98.0); RED BLOOD CELL COUNT(AUTO) 2.98 MIL/uL (4.2-6.2)
[2018-03-28 07:25] LABS: BASOPHILS # (AUTO) 0.1 K/uL (0.0-0.2); BASOPHILS % (AUTO) 0.8 % (0.0-2.0); EOSINOPHILS # (AUTO) 0.3 K/uL (0.0-0.4); EOSINOPHILS % (AUTO) 2.7 % (0.0-4.0); LYMPHOCYTES # (AUTO) 1.9 K/uL (1.0-5.5); LYMPHOCYTES % (AUTO) 18.1 % (20.5-51.5); MEAN CORPUSCULAR HEMOGLOBIN 32 pg (27-31); MEAN CORPUSCULAR HGB CONC 34 % (32-36); MONOCYTES # (AUTO) 0.7 K/uL (0.0-1.0); MONOCYTES % (AUTO) 6.9 % (1.7-9.3); NEUTROPHILS # (AUTO) 7.6 K/uL (1.8-7.7); NEUTROPHILS % (AUTO) 71.5 % (40.0-70.0); PLATELET COUNT (AUTO) 205 K/uL (130-430); RED CELL DISTRIBUTION WIDTH 14.3 % (9.0-15.0); WHITE BLOOD COUNT (AUTO) 10.6 K/uL (4.8-10.8)
[2018-03-28 07:54] LABS: CALCIUM 8.4 mg/dL (8.4-11.0)
[2018-03-28 07:56] LABS: POTASSIUM 5.9 mmol/L (3.5-5.1)
[2018-03-28 07:57] LABS: CREATININE 9.26 mg/dL (0.55-1.30)
[2018-03-28 08:00] VITALS: BP_SYST 191
--- NOTE | 2018-03-28 08:02 | NUR ---
OPENING NOTE PT AWAKE ALERT, NO DISTRESS AT THIS TIME, REORIENTED TO CARMELO LIGHT USE- ENCOURAGED TO CALL. PT REFUSING BED ALARM.
[2018-03-28] MEDS: METOPROLOL TARTRATE 50 MG TABLET PO SCH ×2 (09:00→21:35)
[2018-03-28] MEDS: PANTOPRAZOLE SODIUM 40 MG TAB PO SCH (09:07)
[2018-03-28] MEDS: TIMOLOL MALEATE 0.5% OPHTHALMIC DROPS 5 ML BOTH EYES SCH ×2 (09:23→21:36)
[2018-03-28] MEDS: BRIMONIDINE TARTRATE 0.2% 5 mL EYE DROPS BOTH EYES SCH ×2 (09:23→21:36)
--- NOTE | 2018-03-28 09:27 | NUR ---
am meds morning meds given. bp med held until after dialysis. pt c/o 12/27 abd pain given dilaudid as ordered. safety maintained.
--- NOTE | 2018-03-28 09:27 | NUR ---
IV RE-INSERTION: Complaining of pain to IV site. Restarted on left hand 22 gauge. Successful after 1 attempts. Will observe for any signs of infiltration.
[2018-03-28] MEDS ORDERED: HEPARIN SODIUM,PORCINE 5000 UNITS/ML VIAL IVP ONE ×2 (11:15)
[2018-03-28 11:31] VITALS: BP_SYST 132
[2018-03-28] MEDS: INSULIN REGULAR, HUMAN 100 UNITS/ML, 10 ML VIAL (novoLIN R) SUBCUT PRN (12:25)
--- NOTE | 2018-03-28 13:00 | NUR ---
PT RESTING NO DISTRESS.
[2018-03-28] MEDS ORDERED: SODIUM POLYSTYRENE SULFONATE 15 GM/60 ML UDBTL PO ONE (13:30)
[2018-03-28] MEDS: SEVELAMER HCL 800 MG TABLET PO SCH ×2 (14:00→18:05)
--- NOTE | 2018-03-28 15:00 | NUR ---
Kayexalate po suspension given at this time
--- NOTE | 2018-03-28 15:30 | NUR ---
pt c/o abd pain given dilaudid as ordered. safety maintained.
[2018-03-28] MEDS: cloNIDine HCL 0.2 MG TABLET PO PRN (15:45)
[2018-03-28] MEDS: CEFEPIME 1 GM in D5W 50 ML IV SCH (18:00)
--- NOTE | 2018-03-28 19:09 | NUR ---
closing note all needs met through shift, safety maintained, will endorse care to clinic mgr.
[2018-03-28 21:02] VITALS: BP_SYST 156
--- NOTE | 2018-03-28 21:15 | NUR ---
DILAUDID 1 MG IVP administer for general pain 09/26 assist for position also helpful .
[2018-03-28] MEDS: LATANOPROST 2.5 ML DROPS (XALATAN) BOTH EYES SCH (21:36)
[2018-03-28] MEDS: ONDANSETRON HCL 4 MG/2 ML VIAL IVP PRN (23:23)
--- NOTE | 2018-03-28 23:38 | NUR ---
ZOFRAN 4 MG IVP administer for GI upset & helpful , patient kept up right position .
--- NOTE | 2018-03-28 23:40 | NUR ---
REFUSING Patient Refusing BED ALARM .
[2018-03-29] MEDS: HYDROmorphone 1 MG INJ. 1 MG/ML AMPUL IVP PRN ×7 (00:34→21:39)
[2018-03-29 01:15] VITALS: BP_SYST 152
--- NOTE | 2018-03-29 03:01 | NUR ---
DILAUDID 1 MG IVP given for general pain 09/26 position change encouraged & helpful .
--- NOTE | 2018-03-29 03:02 | NUR ---
PHOTO PICTURE TAKEN OF RIGHT CHIN ABSCESS 0.7CM X 0.7 CM AND PUT IN FOLDER FOR MD TO SIGN .
[2018-03-29 07:30] LABS: HEMATOCRIT 30.2 % (36-54); HEMOGLOBIN 9.8 g/dL (14.0-18.0); MEAN CORPUSCULAR HEMOGLOBIN 31 pg (27-31); MEAN CORPUSCULAR HGB CONC 32 % (32-36); MEAN CORPUSCULAR VOLUME 95 fL (79.0-98.0); PLATELET COUNT (AUTO) 220 K/uL (130-430); RED BLOOD CELL COUNT(AUTO) 3.19 MIL/uL (4.2-6.2); RED CELL DISTRIBUTION WIDTH 14.5 % (9.0-15.0); WHITE BLOOD COUNT (AUTO) 9.3 K/uL (4.8-10.8)
[2018-03-29 07:31] LABS: BASOPHILS # (AUTO) 0.1 K/uL (0.0-0.2); BASOPHILS % (AUTO) 0.7 % (0.0-2.0); EOSINOPHILS # (AUTO) 0.2 K/uL (0.0-0.4); EOSINOPHILS % (AUTO) 2.6 % (0.0-4.0); LYMPHOCYTES # (AUTO) 1.5 K/uL (1.0-5.5); LYMPHOCYTES % (AUTO) 16.6 % (20.5-51.5); MONOCYTES # (AUTO) 0.7 K/uL (0.0-1.0); MONOCYTES % (AUTO) 7.2 % (1.7-9.3); NEUTROPHILS # (AUTO) 6.8 K/uL (1.8-7.7); NEUTROPHILS % (AUTO) 72.9 % (40.0-70.0)
[2018-03-29 07:40] LABS: POTASSIUM 5.5 mmol/L (3.5-5.1)
[2018-03-29 07:41] LABS: CALCIUM 8.5 mg/dL (8.4-11.0)
[2018-03-29 07:45] LABS: CREATININE 9.06 mg/dL (0.55-1.30)
--- NOTE | 2018-03-29 07:56 | NUR ---
initial notes rec patient awake alert, denies pain at this time. resp easy and unlabored. bed to the lowest position and side rails up and locked. call light within reached and knows when to call for assistance. fall precaution reinforced. will monitor patient.
[2018-03-29 08:00] VITALS: BP_SYST 209
[2018-03-29] MEDS: SEVELAMER HCL 800 MG TABLET PO SCH ×3 (09:53→17:31)
[2018-03-29] MEDS: PANTOPRAZOLE SODIUM 40 MG TAB PO SCH (09:54)
[2018-03-29] MEDS: METOPROLOL TARTRATE 50 MG TABLET PO SCH ×2 (09:54→21:50)
[2018-03-29] MEDS: BRIMONIDINE TARTRATE 0.2% 5 mL EYE DROPS BOTH EYES SCH ×2 (09:54→21:51)
[2018-03-29] MEDS: TIMOLOL MALEATE 0.5% OPHTHALMIC DROPS 5 ML BOTH EYES SCH ×2 (09:55→21:51)
[2018-03-29] MEDS: hydrALAZINE HCL 20 MG/ML VIAL IVP PRN ×3 (09:56→23:19)
[2018-03-29] MEDS ORDERED: SODIUM POLYSTYRENE SULFONATE 15 GM/60 ML UDBTL PO ONE (11:15)
--- NOTE | 2018-03-29 12:00 | NUR ---
rounds bs was checked. no hypo hyperglycemic reaction noted.
[2018-03-29 12:02] VITALS: BP_SYST 163
[2018-03-29] MEDS: CEFEPIME 1 GM in D5W 50 ML IV SCH (15:48)
--- NOTE | 2018-03-29 15:53 | NUR ---
rounds pain med and abx was given as ordered. no acute distress noted. call lightwihtn reached.
[2018-03-29 16:02] VITALS: BP_SYST 207
--- NOTE | 2018-03-29 18:30 | NUR ---
closing notes pain mid was given and went to sleep after. no hypo hyperglycemic reaction oted. bed to the lowest position and side rails up and locked. call light within reached. family at bedside.
[2018-03-29] MEDS: ONDANSETRON HCL 4 MG/2 ML VIAL IVP PRN ×2 (18:35→21:39)
--- NOTE | 2018-03-29 19:16 | NUR ---
OPENING NOTE Received report from Lola. Patient resting in bed with eyes closed. Breathing unlabored and even on room air. No signs of distress, no needs at this time. Fall and safety precautions in place. Bed in lowest position, brake on, call light within reach. IV access saline locked. Mother at the bedside. Will continue to monitor.
[2018-03-29 20:00] VITALS: BP_SYST 213
--- NOTE | 2018-03-29 21:39 | NUR ---
Patient c/o pain and nausea. Administered PRN Dilaudid IVP and zofran IVP as ordered.
[2018-03-29] MEDS: LATANOPROST 2.5 ML DROPS (XALATAN) BOTH EYES SCH (21:52)
[2018-03-29] MEDS: INSULIN REGULAR, HUMAN 100 UNITS/ML, 10 ML VIAL (novoLIN R) SUBCUT PRN (21:54)
--- NOTE | 2018-03-29 21:54 | NUR ---
Med pass. Blood sugar 124. No insulin coverage needed per PRN insulin sliding scale.
--- NOTE | 2018-03-29 23:22 | NUR ---
BP check: 205/97, HR 74. Administered PRN apresoline IVP as ordered. Will continue to monitor BP.
--- NOTE | 2018-03-30 00:20 | NUR ---
BP check: 169/101.
[2018-03-30] MEDS: HYDROmorphone 1 MG INJ. 1 MG/ML AMPUL IVP PRN ×8 (00:39→21:47)
--- NOTE | 2018-03-30 00:44 | NUR ---
Patient c/o pain. Administered PRN dilaudid IVP as ordered.
[2018-03-30 01:45] VITALS: BP_SYST 192
--- NOTE | 2018-03-30 02:49 | NUR ---
Patient resting in bed with eyes closed. Breathing unlabored and even on room air. No signs of distress, no needs at this time. Fall and safety precautions in place. Bed in lowest position, brake on, call light within reach. Mother at the bedside. Will continue to monitor.
--- NOTE | 2018-03-30 03:44 | NUR ---
Patient c/o pain. Administered PRN dilaudid IVP as ordered.
--- NOTE | 2018-03-30 05:35 | NUR ---
Patient resting in bed awake, alert, oriented x4. Breathing unlabored and even on room air. No signs of distress, no needs at this time. Fall and safety precautions in place. Bed in lowest position, brake on, call light within reach. Mother at the bedside. Will continue to monitor.
[2018-03-30] MEDS: INSULIN REGULAR, HUMAN 100 UNITS/ML, 10 ML VIAL (novoLIN R) SUBCUT PRN (06:38)
--- NOTE | 2018-03-30 06:39 | NUR ---
Patient c/o pain. Administered PRN dilaudid IVP as ordered. Blood sugar 139. No insulin coverage needed per PRN insulin sliding scale.
[2018-03-30] MEDS: hydrALAZINE HCL 20 MG/ML VIAL IVP PRN (06:51)
--- NOTE | 2018-03-30 06:54 | NUR ---
BP check: 201/112, HR 77. Administered PRN apresoline IVP as ordered
--- NOTE | 2018-03-30 07:40 | NUR ---
CLOSING NOTE Gave report to Marcela. Patient resting in bed with eyes closed. Breathing unlabored and even on room air. No signs of distress, no needs at this time. Fall and safety precautions in place. Bed in lowest position, brake on, call light within reach. IV access saline locked. Mother at the bedside. Will endorse cares to day shift nurse.
[2018-03-30] MEDS: ALBUTEROL SULFATE 0.083% 2.5 MG/3 ML VIAL.NEB INH PRN (07:54)
[2018-03-30 08:00] VITALS: BP_SYST 214
--- NOTE | 2018-03-30 08:00 | NUR ---
Note Pt sitting up in bed crying for pain. Pain medication IVP had just been given - PO medication to be given at this time. IV in right hand intact and patent at this time. Right chest perma cath site intact at this time. Pt's mother at bedside. No SOB/resp distress noted. Pt states pain in upper abdominal region. Call light within reach.
[2018-03-30] MEDS: SEVELAMER HCL 800 MG TABLET PO SCH ×3 (08:23→18:52)
[2018-03-30] MEDS: PANTOPRAZOLE SODIUM 40 MG TAB PO SCH (08:23)
[2018-03-30] MEDS: METOPROLOL TARTRATE 50 MG TABLET PO SCH ×2 (08:23→21:01)
[2018-03-30] MEDS: HYDROcodone/ACETAMIN 10-325 MG TAB PO PRN ×2 (08:24→23:38)
[2018-03-30] MEDS: cloNIDine HCL 0.2 MG TABLET PO PRN (08:24)
[2018-03-30] MEDS: BRIMONIDINE TARTRATE 0.2% 5 mL EYE DROPS BOTH EYES SCH ×2 (08:28→21:03)
[2018-03-30] MEDS: TIMOLOL MALEATE 0.5% OPHTHALMIC DROPS 5 ML BOTH EYES SCH ×2 (08:28→21:02)
[2018-03-30] MEDS ORDERED: HEPARIN SODIUM,PORCINE 5000 UNITS/ML VIAL SUBCUT ONE (10:45)
[2018-03-30 11:21] VITALS: BP_SYST 150
--- NOTE | 2018-03-30 11:30 | NUR ---
Note Blood sugar was done at this time. Unable to scan the bar code. QV=184.
--- NOTE | 2018-03-30 12:40 | NUR ---
Note Pt's dialysis was started at 09am - watch crystal molder Tiffany at bedside. Pt drowsy and sleepy at this time. Pt did not eat much of his breakfast or lunch tray. Pt's mother brings him food from outside. Dialysis ended at this time. No needs noted. Call light within reach.
--- NOTE | 2018-03-30 15:35 | NUR ---
Note Pt resting in bed. Pain tolerable at this time. No needs noted. Call light within reach. Pt mostly sleeping, but awakens q3' for pain medications IVP. No family noted in room at bedside at this time.
[2018-03-30 15:40] VITALS: BP_SYST 155
[2018-03-30] MEDS: CEFEPIME 1 GM in D5W 50 ML IV SCH (15:45)
--- NOTE | 2018-03-30 18:05 | NUR ---
Note Pt sitting up in bed eating his dinner. Pt has 3-4 family members at bedside. Pain tolerable at this time. IV in right hand intact and patent at this time. No SOB/resp distress or severe abdominal pain/discomfort noted at this time. Pt was checked on q1' and PRN all shift for needs and care. No needs noted. Call light within reach.
--- NOTE | 2018-03-30 20:30 | NUR ---
opening note Received report from manager shift nurse. Patient is AAOx4, he is resting supine w/ HOB elevated. His eyes are closed and he is listening to t.v. no sign/sx of distress noted. SL to Rhand and left permacath noted has CDI dressing. Bed is locked to lowest position, bed alarm on, and call light near. updated board and reviewed plan of care.
[2018-03-30 20:35] VITALS: BP_SYST 161
[2018-03-30] MEDS: LATANOPROST 2.5 ML DROPS (XALATAN) BOTH EYES SCH (21:04)
--- NOTE | 2018-03-30 21:30 | NUR ---
note administered due medications and patient tolerated. Accucheck was done w/ a result of 136 and no coverage due. Will monitor.
--- NOTE | 2018-03-30 21:55 | NUR ---
Pain Medication Patient reported severe pain and was medicated for severe pain as ordered. Safety measures in place will monitor.
[2018-03-30] MEDS: ONDANSETRON HCL 4 MG/2 ML VIAL IVP PRN (23:38)
[2018-03-31] VITALS (8 sets, daily range): BP systolic 149–188
--- NOTE | 2018-03-31 00:10 | NUR ---
Elevated B/P Patient's blood pressure was 172/119 and he was medicated with blood pressure medication, will follow-up
[2018-03-31] MEDS: cloNIDine HCL 0.2 MG TABLET PO PRN ×2 (00:35→08:52)
[2018-03-31] MEDS: HYDROmorphone 1 MG INJ. 1 MG/ML AMPUL IVP PRN ×6 (00:52→16:01)
--- NOTE | 2018-03-31 02:00 | NUR ---
Elevated B/P Patient's blood pressure was elevated and he was adminitered prn medication for SBP above 160. Will monitor.
[2018-03-31] MEDS: hydrALAZINE HCL 20 MG/ML VIAL IVP PRN ×3 (02:12→13:03)
--- NOTE | 2018-03-31 03:50 | NUR ---
Pain medication Patient reported severe pain and he was administered medication for severe pain as ordered. Safety precautions in place and call light near.
--- NOTE | 2018-03-31 04:10 | NUR ---
Elevated B/P Patient's blood pressure was elevated (1787/98) and he was adminitered prn medication for SBP above 160. Will monitor.
--- NOTE | 2018-03-31 06:00 | NUR ---
Blood Pressure Blood pressure was 149/87, no prn blood pressure medication administered at this time.
--- NOTE | 2018-03-31 07:15 | NUR ---
CLOSING NOTE Patient resting in comfortable position. He was medicated for severe pain 15 minutes ago. Accucheck was 129 mg/dl and no coverage due. 22G SL to right hand. Needs met throughout shift. Safety precautions in place and call light near. Will endorse care to morning nurse.
--- NOTE | 2018-03-31 08:00 | NUR ---
Note Pt sitting up in bed eating his breakfast. No SOB/resp distress or severe abdominal pain/discomfort noted at this time. Pt has his O2 on at 3L/nc at this time for comfort. IV in right hand intact and patent at this time. No needs noted at this time. Call light within reach.
[2018-03-31] MEDS: SEVELAMER HCL 800 MG TABLET PO SCH ×2 (08:51→11:21)
[2018-03-31] MEDS: METOPROLOL TARTRATE 50 MG TABLET PO SCH (08:51)
[2018-03-31] MEDS: TIMOLOL MALEATE 0.5% OPHTHALMIC DROPS 5 ML BOTH EYES SCH (08:52)
[2018-03-31] MEDS: PANTOPRAZOLE SODIUM 40 MG TAB PO SCH (08:52)
[2018-03-31] MEDS: BRIMONIDINE TARTRATE 0.2% 5 mL EYE DROPS BOTH EYES SCH (08:53)
--- NOTE | 2018-03-31 10:30 | NUR ---
Note Pt resting in bed. Denies any needs at this time. Pt was given Dilaudid IVP at 10am for severe pain. Call light within reach.
--- NOTE | 2018-03-31 12:05 | NUR ---
Note Pt sitting up in bed eating his lunch. No needs were noted at this time. Pain tolerable at this time. Call light within reach.
--- NOTE | 2018-03-31 14:35 | NUR ---
Note Dr Hill came to floor to pt's bedside and answered pt's questions/concerns. Verbal discharge orders given at this time. Pt drowsy and pain is tolerable at this time. Pt went back to sleep. Call light within reach.
[2018-03-31] MEDS ORDERED: DOXY100C PO (14:38)
[2018-03-31] MEDS ORDERED: FLA250 PO (14:39)
--- NOTE | 2018-03-31 16:30 | NUR ---
Note Pt was given his pain medication Dilaudid IVP at 1600. Pain tolerable at this time. Pt was given his discharge instructions and prescription. Questions/concerns were answered at this time. Pt's right hand IV was dc'd. site benign, no swelling/redness/bleeding/drainage noted at this time. No needs noted at this time. Pt waiting for his mother to come to pick him. Belongings packed at this time. Call light within reach.
--- NOTE | 2018-03-31 16:50 | NUR ---
Note Pt off the floor via wheelchair to private car with all his belongings, acc by his parents and brother. Pt stable - no SOB/resp distress or severe abdominal pain/discomfort noted at this time. Pt had his discharge paperwork and prescription with him.
[2018-03-31] MEDS ORDERED: DOXYCYCLINE HYCLATE 100 MG CAPSULE PO SCH (21:00)
[2018-04-02] MEDS ORDERED: EPOETIN ALFA 10,000 UNITS/ML VIAL SUBCUT SCH (09:00)
== END 2018-03-31 16:50 | disposition home or self-care (01) | DRG 871 ==
LOC: SED 20:08 → STU 22:16 → SMU 03-24 20:42
PROVIDERS: ADMIT Internal Medicine; ATTEND Internal Medicine
PROC: 5A1D70Z Performance of Urinary Filtration, Intermittent, Less than 6 Hours Per Day (ICD-10-PCS; 2017-03-28)
PROC: 5A1D70Z Performance of Urinary Filtration, Intermittent, Less than 6 Hours Per Day (ICD-10-PCS; principal; 2018-03-21)
PROC: 5A1D70Z Performance of Urinary Filtration, Intermittent, Less than 6 Hours Per Day (ICD-10-PCS; 2018-03-23)
PROC: 5A1D70Z Performance of Urinary Filtration, Intermittent, Less than 6 Hours Per Day (ICD-10-PCS; 2018-03-25)
PROC: 5A1D70Z Performance of Urinary Filtration, Intermittent, Less than 6 Hours Per Day (ICD-10-PCS; 2018-03-26)
PROC: 5A1D70Z Performance of Urinary Filtration, Intermittent, Less than 6 Hours Per Day (ICD-10-PCS; 2018-03-30)
DX: A41.9 Sepsis, unspecified organism (principal); N18.6 End stage renal disease; K12.2 Cellulitis and abscess of mouth; L03.211 Cellulitis of face; L02.01 Cutaneous abscess of face; F11.20 Opioid dependence, uncomplicated; I13.11 Hypertensive heart and chronic kidney disease without heart failure, with stage 5 chronic kidney disease, or end stage renal disease; N25.81 Secondary hyperparathyroidism of renal origin; K31.84 Gastroparesis; E11.22 Type 2 diabetes mellitus with diabetic chronic kidney disease; E11.43 Type 2 diabetes mellitus with diabetic autonomic (poly)neuropathy; G89.4 Chronic pain syndrome; I88.9 Nonspecific lymphadenitis, unspecified; E11.65 Type 2 diabetes mellitus with hyperglycemia; E11.40 Type 2 diabetes mellitus with diabetic neuropathy, unspecified; E87.5 Hyperkalemia; I16.0 Hypertensive urgency; E66.01 Morbid (severe) obesity due to excess calories; E11.319 Type 2 diabetes mellitus with unspecified diabetic retinopathy without macular edema; H54.8 Legal blindness, as defined in USA; D63.1 Anemia in chronic kidney disease; K04.7 Periapical abscess without sinus; E83.39 Other disorders of phosphorus metabolism; Z88.5 Allergy status to narcotic agent; Z88.8 Allergy status to other drugs, medicaments and biological substances; Z79.899 Other long term (current) drug therapy; Z99.2 Dependence on renal dialysis; Z79.4 Long term (current) use of insulin; Z91.11 Patient's noncompliance with dietary regimen; Z68.39 Body mass index [BMI] 39.0-39.9, adult
CPT/HCPCS: 36415; 70486-TC; 80048; 80053; 80202-TC; 82962; 83036; 83605; 83690-TC; 84100-TC; 85007; 85025; 85027; 87040-TC; 87081; 90935; 90937; 93005; 94640; 94760; 96374; 96375; 99291; G0378; J0360; J0692; J0696; J1170; J1644; J1815; J2001; J2248; J2405; J2543; J3370; J3490; J7030; J7050; J7060; J7613; J8597

== ENCOUNTER 2018-04-16 07:28 | Emergency (ER) | payer OTHER, MEDICAID ==
[~2018-04-16] VITALS: Ht 177.8 cm; Wt 111.1 kg
[~2018-04-16 07:28] MED LIST changes: +DOXY100C PO; +FLA250 PO
[2018-04-16 07:43] VITALS: BP_SYST 219
[2018-04-16] MEDS ORDERED: METOCLOPRAMIDE HCL 10 MG/2 ML VIAL IVP ONE (08:00)
[2018-04-16] MEDS ORDERED: hydrALAZINE HCL 20 MG/ML VIAL IVP ONE ×2 (08:00→09:15)
[2018-04-16] MEDS ORDERED: fentaNYL CITRATE/PF 100 MCG/2 ML AMP IVP ONE ×2 (08:00→09:45)
[2018-04-16] MEDS ORDERED: DIPHENHYDRAMINE INJ 50 MG/ML VIAL IVP ONE (08:00)
[2018-04-16 08:41] LABS: BASOPHILS # (AUTO) 0.1 K/uL (0.0-0.2); BASOPHILS % (AUTO) 0.8 % (0.0-2.0); EOSINOPHILS % (AUTO) 0.1 % (0.0-4.0); HEMATOCRIT 34.8 % (36-54); HEMOGLOBIN 11.3 g/dL (14.0-18.0); LYMPHOCYTES % (AUTO) 9.6 % (20.5-51.5); MEAN CORPUSCULAR HEMOGLOBIN 30 pg (27-31); MEAN CORPUSCULAR HGB CONC 32 % (32-36); MEAN CORPUSCULAR VOLUME 93 fL (79.0-98.0); MONOCYTES # (AUTO) 0.3 K/uL (0.0-1.0); MONOCYTES % (AUTO) 2.5 % (1.7-9.3); NEUTROPHILS # (AUTO) 9.4 K/uL (1.8-7.7); PLATELET COUNT (AUTO) 303 K/uL (130-430); RED BLOOD CELL COUNT(AUTO) 3.73 MIL/uL (4.2-6.2); RED CELL DISTRIBUTION WIDTH 15.6 % (9.0-15.0); WHITE BLOOD COUNT (AUTO) 10.8 K/uL (4.8-10.8)
[2018-04-16 08:52] LABS: CALCIUM 9.1 mg/dL (8.4-11.0)
[2018-04-16 08:57] LABS: ALBUMIN 3.6 g/dL (3.4-4.8); TOTAL BILIRUBIN 0.4 mg/dL (0.0-1.0)
[2018-04-16 09:02] LABS: POTASSIUM 6.5 mmol/L (3.5-5.1)
[2018-04-16 09:05] LABS: CREATININE 10.89 mg/dL (0.55-1.30)
[2018-04-16] MEDS ORDERED: PROCHLORPERAZINE EDISYLATE 10 MG/2 ML VIAL IVP ONE (09:15)
[2018-04-16 10:21] VITALS: BP_SYST 161
== END 2018-04-16 10:06 | disposition home or self-care (01) ==
LOC: SED 07:28
DX: G89.29 Other chronic pain (principal); R10.13 Epigastric pain; I16.9 Hypertensive crisis, unspecified; I12.9 Hypertensive chronic kidney disease with stage 1 through stage 4 chronic kidney disease, or unspecified chronic kidney disease; E11.22 Type 2 diabetes mellitus with diabetic chronic kidney disease; E11.40 Type 2 diabetes mellitus with diabetic neuropathy, unspecified; E11.43 Type 2 diabetes mellitus with diabetic autonomic (poly)neuropathy; K31.84 Gastroparesis; N18.9 Chronic kidney disease, unspecified; Z88.6 Allergy status to analgesic agent; Z88.8 Allergy status to other drugs, medicaments and biological substances; Z79.899 Other long term (current) drug therapy; Z99.2 Dependence on renal dialysis
CPT/HCPCS: 36415; 80053; 83690; 85025; 96374; 96375; 96376; 99283; J0360; J0780; J1200; J2765; J3010

== ENCOUNTER 2018-05-03 21:35 | Inpatient (IN) | payer OTHER, MEDICAID ==
[~2018-05-03] VITALS: Ht 177.8 cm; Wt 122.7 kg
[~2018-05-03 21:35] MED LIST changes: +TIMO5DRO15 BOTH EYES; -TIMO5DRO4 BOTH EYES
[2018-05-03 21:45] VITALS: BP_SYST 206
--- NOTE | 2018-05-03 21:51 | NUR ---
Placed in room 05 . Placed on bus monitor, blood pressure machine and pulse oximeter. To gown for exam. Side rails up. Report given to DEBBI SOUTH.
--- NOTE | 2018-05-03 21:52 | NUR ---
PATIENT C/O ABDOMINAL PAIN, N/V, AND HEADACHE SINCE 10AM. NO ACTIVE VOMITTING AT THIS TIME. CURRENTLY CRYING AT THE BEDSIDE. NO SOB. HYPERTENSIVE. WILL CONTINUE TO MONITOR.
--- NOTE | 2018-05-03 21:56 | NUR ---
ER at bedside examining patient.
[2018-05-03] MEDS ORDERED: DIPHENHYDRAMINE INJ 50 MG/ML VIAL IVP ONE ×2 (22:00→23:30)
[2018-05-03] MEDS ORDERED: METOCLOPRAMIDE HCL 10 MG/2 ML VIAL IVP ONE ×2 (22:00→23:45)
[2018-05-03] MEDS ORDERED: fentaNYL CITRATE/PF 100 MCG/2 ML AMP IVP ONE ×2 (22:00→23:45)
[2018-05-03] MEDS ORDERED: hydrALAZINE HCL 20 MG/ML VIAL IVP ONE ×2 (22:00→23:30)
--- NOTE | 2018-05-03 22:21 | NUR ---
# 20 gauge angiocath placed to LEFT AC. Use of asceptic technique. Opsite placed over site. Blood return noted. Blood for lab drawn from site. Flushed with 10 cc of normal saline. No evidence of infiltration noted. Patient tolerated well.
--- NOTE | 2018-05-03 22:30 | NUR ---
PATIENT'S IV ON THE LEFT AC INFILTRATED. CATHETER REMOVED, INTACT. WILL ATTEMPT ANOTHER IV.
[2018-05-03 22:38] LABS: BASOPHILS % (AUTO) 0.4 % (0.0-2.0); EOSINOPHILS # (AUTO) 0.1 K/uL (0.0-0.4); EOSINOPHILS % (AUTO) 0.7 % (0.0-4.0); HEMATOCRIT 37.9 % (36-54); HEMOGLOBIN 12.3 g/dL (14.0-18.0); LYMPHOCYTES # (AUTO) 1.8 K/uL (1.0-5.5); LYMPHOCYTES % (AUTO) 17.9 % (20.5-51.5); MEAN CORPUSCULAR HEMOGLOBIN 31 pg (27-31); MEAN CORPUSCULAR HGB CONC 33 % (32-36); MEAN CORPUSCULAR VOLUME 94 fL (79.0-98.0); MONOCYTES # (AUTO) 0.7 K/uL (0.0-1.0); MONOCYTES % (AUTO) 6.7 % (1.7-9.3); NEUTROPHILS # (AUTO) 7.3 K/uL (1.8-7.7); NEUTROPHILS % (AUTO) 74.3 % (40.0-70.0); PLATELET COUNT (AUTO) 286 K/uL (130-430); RED BLOOD CELL COUNT(AUTO) 4.02 MIL/uL (4.2-6.2); RED CELL DISTRIBUTION WIDTH 15.3 % (9.0-15.0); WHITE BLOOD COUNT (AUTO) 9.9 K/uL (4.8-10.8)
[2018-05-03 22:40] LABS: CALCIUM 8.3 mg/dL (8.4-11.0); POTASSIUM 5.4 mmol/L (3.5-5.1)
[2018-05-03 22:46] LABS: ALBUMIN 3.6 g/dL (3.4-4.8); TOTAL BILIRUBIN 0.3 mg/dL (0.0-1.0)
[2018-05-03 22:50] LABS: CREATININE 9.24 mg/dL (0.55-1.30)
--- NOTE | 2018-05-03 22:55 | NUR ---
Note undone in EDM - 05/03/18 at 2306 by [email or web address] # 24 gauge angiocath placed to RT forearm. Use of asceptic technique. Opsite placed over site. Blood return noted. Blood for lab drawn from site. Flushed with 10 cc of normal saline. No evidence of infiltration noted. Patient tolerated well.
--- NOTE | 2018-05-03 22:55 | NUR ---
# 24 gauge angiocath placed to RT Forearm. Use of asceptic technique. Opsite placed over site. Blood return noted. Flushed with 10 cc of normal saline. No evidence of infiltration noted. Patient tolerated well.
--- NOTE | 2018-05-03 23:10 | NUR ---
Pt C/O 12/27 Abd pain and increasing anxiety, ER MD notified. Pt given Fentanyl for pain management. Will continue to monitor.
[2018-05-04] VITALS (8 sets, daily range): BP systolic 96–208
--- NOTE | 2018-05-04 00:06 | NUR ---
ATTEMPTED TO DISCHARGE THE PATIENT, BUT PATIENT STARTED SCREAMING IN PAIN, FOLLOWED BY VOMITTING, <15ML. MD AT BEDSIDE TO EXAMINE PATIENT.
[2018-05-04] MEDS ORDERED: INSULIN REGULAR, HUMAN 100 UNITS/ML, 10 ML VIAL (novoLIN R) SUBCUT PRN (00:30)
[2018-05-04] MEDS ORDERED: ONDANSETRON HCL 4 MG/2 ML VIAL IVP PRN (00:30)
[2018-05-04] MEDS ORDERED: cloNIDine HCL 0.1 MG TABLET PO PRN (00:30)
--- NOTE | 2018-05-04 00:44 | NUR ---
ADMISSION NOTE Received patient from ER via gurney. Patient admitted with diagnosis of . Patient is awake, alert, oriented X 4. Patient oriented to hospital room, call light, toileting, pain management and safety-teach back done. Patient informed that BRANNON Erickson will be primary nurse and that their room number is 116A. Personal belongings checked and Belongings List documented. Call light within reach. Addendum: 05/04/18 at 0103 by Robert Underwood RN BRANNON Frances will be primary nurse
--- NOTE | 2018-05-04 00:45 | NUR ---
Patient will be admitted to care of . Admitted to TELE unit. Will go to room 116A. Belongings list completed. Summary report printed. Report will be given at bedside.
[2018-05-04] MEDS: HYDROmorphone 2 MG/ML VIAL IVP PRN ×6 (01:01→21:31)
--- NOTE | 2018-05-04 01:01 | NUR ---
DILAUDED 1MG NOT GIVEN Pt's IV site was infiltrated, Dilauded 1mg was not given properly. Charge nurse Sanjuanita made aware. New IV site will be started.
--- NOTE | 2018-05-04 01:34 | NUR ---
IV REINSERTION/DILAUDED 1MG GIVEN New IV site inserted by charge nurse Sanjuanita on left thumb G24. With good blood return and flushable with saline water. Pt complained of left upper abdominal pain with a scale of 10/10. Dilauded 1mg IVP given as ordered. Encouraged deep breathing exercises and position of comfort. Educated pt on side effects like drowsiness and safety precautions, pt verbalizes understanding. Safety precautions in place with 3 side rails up, bed alarm on, locked and at lowest level. Call light with pt. Will continue to monitor.
--- NOTE | 2018-05-04 01:51 | NUR ---
ZOFRAN 4MG GIVEN Pt vomited with moderate amount of undigested food. Zofran 4MG IVP given as ordered. No signs of acute distress or SOB noted. Educated on side effects like dizziness, pt verbalizes understanding. Reencouraged pt on position of comfort. Safety precautions in place and call light with pt. Will continue to monitor.
--- NOTE | 2018-05-04 03:26 | NUR ---
HIGH BP Pt's BP is 193/110mmHg. Gave Clonidine 0.2mg PO as ordered. No signs of acute distress or SOB noted. Ice chips were given per pt's request. Safety precautions in place and call light with pt. Will continue to monitor.
--- NOTE | 2018-05-04 04:23 | NUR ---
SPOKE TO DR. PIZARRO Spoke to Dr. Pizarro regarding pt's BP still high of 208/127mmHg after giving Clonidine 0.2mg a while ago at 0326. Dr. Pizarro ordered Hydralazine 50mg PO once. Read back order and will carry out.
[2018-05-04] MEDS ORDERED: hydrALAZINE HCL 25 MG TABLET PO SCH (04:45)
--- NOTE | 2018-05-04 05:03 | NUR ---
CONSULTATION PAGED/CALLED Reason for Consultation: RENAL FAILURE Person Who was Notified: EXCHANGE Consulting Physician: DR. VARELA; MATERIAL HANDLER - DR. SY Hot Packer Specialty: NEPHRO Ordering Physician: DR. PIZARRO
[2018-05-04] MEDS: METOCLOPRAMIDE HCL 10 MG/2 ML VIAL IVP SCH ×3 (05:20→21:34)
--- NOTE | 2018-05-04 05:26 | NUR ---
DILAUDED 1MG GIVEN Pt complained of left upper abdominal pain with a scale of 10/10. Encouraged position of comfort and deep breathing exercises. Dilauded 1mg IVP given as ordered. Ice chips and jello given per pt's request. No signs of acute distress or SOB noted. Will continue to monitor.
--- NOTE | 2018-05-04 06:32 | NUR ---
CLOSING NOTES Pt is resting in bed with both eyes closed. With visible chest rise and fall with unlabored breathing noted. Latest BP at 0618 was 160/101mmHg and blood glucose was 134mg/dL. No signs of acute distress or SOB noted. All needs attended throughout the shift. Safety precautions maintained and call light with pt. Will endorse to day shift nurse.
[2018-05-04] MEDS ORDERED: DOCUSATE SODIUM 100 MG CAPSULE PO PRN (07:00)
[2018-05-04] MEDS ORDERED: MUPIROCIN 2% TOPICAL OINTMENT 22 GM NS PRN (07:00)
[2018-05-04] MEDS ORDERED: GABAPENTIN 300 MG CAPSULE PO PRN (07:00)
[2018-05-04] MEDS ORDERED: MAGNESIUM SULFATE 50 ML IV PRN (07:00)
[2018-05-04] MEDS ORDERED: METHOCARBAMOL 500 MG TABLET PO PRN (07:00)
[2018-05-04] MEDS ORDERED: POTASSIUM CHLORIDE 20 MEQ TAB.PRT.SR PO PRN (07:00)
[2018-05-04] MEDS ORDERED: DEXTROSE 50% JECT 50 ML DISP.SYRIN IVP PRN (07:00)
[2018-05-04] MEDS ORDERED: NIFEDIPINE 90 MG TABLET.SA (PROCARDIA XL 90 MG) PO ONE (08:00)
--- NOTE | 2018-05-04 08:00 | NUR ---
Note Pt resting in bed with tele unit attached and intact at this time. IV in left thumb intact and patent at this time. No SOB/resp distress or severe abdominal pain/discomfort noted at this time. Pt has kept the room dark with shades closed, refuses to open shades, states it hurts his eyes. Breakfast tray next to pt and he is eating slowly at this time. Call light within reach.
[2018-05-04] MEDS: METOPROLOL TARTRATE 25 MG TABLET PO SCH ×2 (09:35→21:34)
--- NOTE | 2018-05-04 09:35 | NUR ---
Note Pt was given Dilaudid 1mg IVP. computer did not save information.
[2018-05-04] MEDS: HEPARIN SODIUM,PORCINE 5000 UNITS/ML VIAL SUBCUT SCH ×2 (09:39→21:37)
--- NOTE | 2018-05-04 10:00 | NUR ---
Note X-ray of abdomen was ordered and pt's abdomen was x-rayed at bedside at this time. Pain medication was given as requested at 0935am. Pt went back to resting in bed. Call light within reach.
[2018-05-04] MEDS: BRIMONIDINE TARTRATE 0.2% 5 mL EYE DROPS BOTH EYES SCH ×2 (12:05→21:35)
[2018-05-04] MEDS: TIMOLOL MALEATE 0.5% OPHTHALMIC DROPS 5 ML BOTH EYES SCH ×2 (12:05→21:35)
--- NOTE | 2018-05-04 12:10 | NUR ---
Note Pt sitting up at 45' eating his lunch on bedside tray at this time. Denies any needs. Call light within reach.
--- NOTE | 2018-05-04 14:50 | NUR ---
Note Pt resting in bed, pain tolerable at this time. Pt requested and received a hamburger (pt did not eat anything from his lunch tray, food was not to his liking). No needs noted at this time. Call light within reach.
--- NOTE | 2018-05-04 16:50 | NUR ---
Note Pt sitting up in bed with cellphone listening to music. No needs noted. No SOB/resp distress or abdominal pain/discomfort noted. Pt stable with tele unit attached and intact. Call light within reach.
--- NOTE | 2018-05-04 18:35 | NUR ---
Note Dr Rucker came to assess pt and order for dialysis was given for tomorrow. Order given to Systems Integration Analyst for dialysis. Pt was notified for dialysis for tomorrow. Pt resting in bed. Denies any needs at this time. No SOB/resp distress or abdominal pain/discomfort noted at this time. Tele unit attached and intact all shift. Pt signed consent for Hemodialysis and it is in the chart. Pt was checked on q1' and PRN all shift for needs and care. Call light within reach.
--- NOTE | 2018-05-04 19:10 | NUR ---
OPENING NOTE Late entry due to patient care. Bedside report received from dayshift nurse. Patient received lying in bed, HOB raised, no s/s of acute distress noted. Breathing even and unlabored. Patient's family members present at bedside. Call light with patient. Will continue to monitor.
--- NOTE | 2018-05-04 21:00 | NUR ---
ROUNDS Patient in bed, resting, no s/s of acute distress noted. Breathing even and unlabored. Call light with patient. All needs met at this time. IV site patent, no signs of infiltration or infection noted. Will continue to monitor.
[2018-05-04] MEDS: LATANOPROST 2.5 ML DROPS (XALATAN) BOTH EYES SCH (21:35)
[2018-05-04] MEDS: INSULIN ASPART 100 UNITS/ML, 10 ML VIAL (NovoLOG) SUBCUT PRN (21:38)
--- NOTE | 2018-05-04 23:00 | NUR ---
ROUNDS Patient asleep at this time. No signs of discomfort noted. Chest rise and fall even bilaterally. Call light with patient. Will continue to monitor.
--- NOTE | 2018-05-05 00:57 | NUR ---
PERMACATH NOT WORKING/CALLED DR MARTINS Dialysis nurse made RN aware that patient's permacath not working properly at this time. Dr. Martins who is director of promotions for Dr. Rucker made aware, and ordered 2mg Activase per each port one time only and to continue dialysis for later in the morning. Will carry out orders.
[2018-05-05] MEDS ORDERED: ALTEPLASE 2 MG VIAL MC ONE ×3 (01:00→02:00)
[2018-05-05 01:05] VITALS: BP_SYST 133
[2018-05-05] MEDS: HYDROmorphone 2 MG/ML VIAL IVP PRN ×6 (01:23→21:24)
--- NOTE | 2018-05-05 02:55 | NUR ---
ROUNDS Patient in bed sleeping at this time. No s/s of acute distress noted. Breathing is even and unlabored. HOB raised. Call light with patient. Will continue to monitor.
[2018-05-05] MEDS: HYDROcodone/ACETAMIN 10-325 MG TAB PO PRN (03:38)
[2018-05-05] MEDS: ONDANSETRON HCL 4 MG/2 ML VIAL IVP PRN ×2 (04:02→09:36)
--- NOTE | 2018-05-05 05:00 | NUR ---
NEW IV New IV site at right wrist, 24 gauge, done by charge nurse, Sanjuanita. Patient tolerated procedure well. IV site at left thumb DC'ed due to patient's complaint of burning sensation when flushing. Call light with patient. Will continue to monitor.
[2018-05-05] MEDS: METOCLOPRAMIDE HCL 10 MG/2 ML VIAL IVP SCH ×3 (06:16→22:39)
[2018-05-05] MEDS: INSULIN ASPART 100 UNITS/ML, 10 ML VIAL (NovoLOG) SUBCUT PRN ×2 (06:16→21:52)
--- NOTE | 2018-05-05 06:38 | NUR ---
CLOSING NOTE Patient in bed sleeping at this time. No s/s of acute distress noted. Breathing even and unlabored. HOB raised. IV site patent, no signs of infection or infiltration noted. No signs of hypoglycemia noted, skin warm and dry to touch. All needs met throughout shift. Fall and safety precautions maintained throughout shift. Will continue to monitor until patient care is endorsed to oncoming dayshift nurse.
[2018-05-05 06:39] LABS: BASOPHILS % (AUTO) 0.5 % (0.0-2.0); EOSINOPHILS # (AUTO) 0.1 K/uL (0.0-0.4); EOSINOPHILS % (AUTO) 0.9 % (0.0-4.0); LYMPHOCYTES # (AUTO) 2.5 K/uL (1.0-5.5); LYMPHOCYTES % (AUTO) 25.1 % (20.5-51.5); MEAN CORPUSCULAR HEMOGLOBIN 32 pg (27-31); MEAN CORPUSCULAR HGB CONC 33 % (32-36); MEAN CORPUSCULAR VOLUME 95 fL (79.0-98.0); MONOCYTES # (AUTO) 0.6 K/uL (0.0-1.0); NEUTROPHILS # (AUTO) 6.7 K/uL (1.8-7.7); NEUTROPHILS % (AUTO) 67.5 % (40.0-70.0); PLATELET COUNT (AUTO) 275 K/uL (130-430); RED BLOOD CELL COUNT(AUTO) 3.81 MIL/uL (4.2-6.2); RED CELL DISTRIBUTION WIDTH 15.5 % (9.0-15.0); WHITE BLOOD COUNT (AUTO) 9.9 K/uL (4.8-10.8)
[2018-05-05 06:46] LABS: CALCIUM 8.2 mg/dL (8.4-11.0)
[2018-05-05 06:56] LABS: CREATININE 10.92 mg/dL (0.55-1.30); POTASSIUM 5.8 mmol/L (3.5-5.1)
--- NOTE | 2018-05-05 07:39 | NUR ---
Nutrition Update Buddy Scale 18 noted. Pt admitted for uncontrolled HTN Diet: Renal Standard 2gm Na 3gm K 1gm Phos CCHO diet BMI: 39.5 kg/m2 RD to follow per nutrition care standards.
--- NOTE | 2018-05-05 07:51 | NUR ---
OPENING NOTE: RECEIVED REPORT FROM NIGHT NURSE. PATIENT IS RESTING COMFORTABLY IN BED. NO S/S OF DISTRESS OR SOB. PATIENT IS ALERT AND ORIENTED, ABLE TO EXPRESS NEEDS, AND ASK FOR ASSISTANCE. PATIENT IS ASKING FOR NAUSEA MEDICATION, INFORMED THAT PRN MEDICATION ORDER IS FOR EVERY [address] PIZARRO PAGED. CALL LIGHT IN REACH, BED IN LOWEST POSITION, AND WILL CONTINUE TO MONITOR.
[2018-05-05 08:00] VITALS: BP_SYST 175
[2018-05-05] MEDS ORDERED: METOCLOPRAMIDE HCL 10 MG/2 ML VIAL IVP PRN (08:45)
[2018-05-05] MEDS: NIFEDIPINE 90 MG TABLET.SA (PROCARDIA XL 90 MG) PO SCH (09:00)
[2018-05-05] MEDS: METOPROLOL TARTRATE 25 MG TABLET PO SCH ×2 (09:00→21:41)
[2018-05-05] MEDS: TIMOLOL MALEATE 0.5% OPHTHALMIC DROPS 5 ML BOTH EYES SCH ×2 (09:00→21:43)
--- NOTE | 2018-05-05 09:00 | NUR ---
PAIN MEDICATION PATIENT MEDICATED FOR 10/10 PAIN PER PRN ORDER. PATIENT EDUCATED ON MEDICATION SIDE EFFECTS AND TO USE CALL LIGHT FOR ASSISTANCE TO AVOID FALL. PATIENT VERBALIZED UNDERSTANDING. CALL LIGHT IN REACH, BED IN LOWEST POSITION, AND WILL CONTINUE TO MONITOR.
[2018-05-05] MEDS: BRIMONIDINE TARTRATE 0.2% 5 mL EYE DROPS BOTH EYES SCH ×2 (09:01→21:42)
[2018-05-05] MEDS: HEPARIN SODIUM,PORCINE 5000 UNITS/ML VIAL SUBCUT SCH ×2 (09:07→21:53)
--- NOTE | 2018-05-05 09:45 | NUR ---
PATIENT IN DIALYSIS.
[2018-05-05] MEDS: LORazepam 2 MG/ML VIAL IVP PRN ×3 (10:42→22:39)
--- NOTE | 2018-05-05 10:51 | NUR ---
Ativan patient complaining of anxiety. Dr. Thurman made rounds and ordered Ativan prn. medication given per order. patient tolerated well. dialysis still in effect. call light in reach, bed in lowest position, and will continue to monitor.
[2018-05-05 12:02] VITALS: BP_SYST 140
--- NOTE | 2018-05-05 12:13 | NUR ---
RN ROUNDS PATIENT IS RESTING COMFORTABLY IN BED. NO S/S OF DISTRESS OR SOB. PATIENT STILL IN DIALYSIS. NO COMPLAINTS. CALL LIGHT IN REACH, BED IN LOWEST POSITION, AND WILL CONTINUE TO MONITOR.
--- NOTE | 2018-05-05 14:00 | NUR ---
RN ROUNDS PATIENT IS RESTING COMFORTABLY IN BED. NO S/S OF DISTRESS OR SOB. PATIENT IS ALERT AND ORIENTED, ABLE TO EXPRESS NEEDS, AND ASK FOR ASSISTANCE. NO NEEDS AT THIS TIME. CALL LIGHT IN REACH, BED IN LOWEST POSITION, AND WILL CONTINUE TO MONITOR.
--- NOTE | 2018-05-05 16:00 | NUR ---
RN ROUNDS PATIENT IS RESTING COMFORTABLY IN BED. NO S/S OF DISTRESS OR SOB. PATIENT IS ALERT AND ORIENTED, ABLE TO EXPRESS NEEDS, AND ASK FOR ASSISTANCE. NO NEEDS EXPRESSED AT THE TIME. CALL LIGHT IN REACH, BED IN LOWEST POSITION ,AND WILL CONTINUE TO MONITOR.
[2018-05-05 16:02] VITALS: BP_SYST 152
--- NOTE | 2018-05-05 18:03 | NUR ---
CLOSING NOTE: PATIENT IS RESTING COMFORTABLY IN BED. NO S/S OF DISTRESS OR SOB. PATIENT IS ALERT AND ORIENTED, ABLE TO EXPRESS NEEDS, AND ASK FOR ASSISTANCE. IV IS PATENT AND SALINE LOCKED. ALL NEEDS MET DURING SHIFT. CALL LIGHT IN REACH, BED IN LOWEST POSITION, AND WILL GIVE REPORT TO NIGHT NURSE.
[2018-05-05 19:45] VITALS: BP_SYST 183
--- NOTE | 2018-05-05 19:45 | NUR ---
OPENING NOTE Received patient awake, AOx4 resting in bed. VS taken and BP is elevated 183/104. Non labored breathing, oxygen saturation is 97% on 3L NC. Patient refuses the bed alarm and states family is present if he needs help. 24G SL to Rt wrist. Bed is locked to lowest position and call light is within reach. Updated board and reviewed plan of care.
[2018-05-05] MEDS: cloNIDine HCL 0.2 MG TABLET PO PRN (19:49)
--- NOTE | 2018-05-05 19:50 | NUR ---
ELEVATED BP BP 183/104. Medicated patient with catapress prn as ordered. Will follow-up.
[2018-05-05] MEDS: LATANOPROST 2.5 ML DROPS (XALATAN) BOTH EYES SCH (21:43)
[2018-05-06 00:08] VITALS: BP_SYST 167
[2018-05-06] MEDS: HYDROmorphone 2 MG/ML VIAL IVP PRN ×6 (01:33→22:04)
[2018-05-06] MEDS: cloNIDine HCL 0.2 MG TABLET PO PRN (02:30)
--- NOTE | 2018-05-06 02:45 | NUR ---
NEW IV START IV on right wrist became occluded and painfult. A new IV was started and placed to LFA - 20G. IV reinsertion was successful after two attempts. Patient tolerated.
[2018-05-06] MEDS: LORazepam 2 MG/ML VIAL IVP PRN ×4 (04:40→23:09)
--- NOTE | 2018-05-06 04:42 | NUR ---
ROUNDS Patient reporting anxiety and requested ativan; it was administered as ordered and patient tolerated. Reviewed side effects and patient verbalized understanding. No further needs.
[2018-05-06] MEDS: METOCLOPRAMIDE HCL 10 MG/2 ML VIAL IVP SCH ×3 (06:10→22:04)
--- NOTE | 2018-05-06 06:10 | NUR ---
osmany Patient administered due medications and prn meds. Accucheck was done, result was 127 no insulin due.
--- NOTE | 2018-05-06 06:20 | NUR ---
making rounds Dr. Thurman made rounds, he ordered a one time prn medication for elevated SBP.
[2018-05-06 06:57] LABS: BASOPHILS # (AUTO) 0.1 K/uL (0.0-0.2); BASOPHILS % (AUTO) 0.7 % (0.0-2.0); EOSINOPHILS # (AUTO) 0.1 K/uL (0.0-0.4); HEMATOCRIT 33.8 % (36-54); HEMOGLOBIN 11.3 g/dL (14.0-18.0); LYMPHOCYTES # (AUTO) 1.7 K/uL (1.0-5.5); LYMPHOCYTES % (AUTO) 20.5 % (20.5-51.5); MEAN CORPUSCULAR HEMOGLOBIN 31 pg (27-31); MEAN CORPUSCULAR HGB CONC 33 % (32-36); MEAN CORPUSCULAR VOLUME 94 fL (79.0-98.0); MONOCYTES # (AUTO) 0.6 K/uL (0.0-1.0); MONOCYTES % (AUTO) 6.8 % (1.7-9.3); NEUTROPHILS # (AUTO) 5.8 K/uL (1.8-7.7); PLATELET COUNT (AUTO) 267 K/uL (130-430); RED BLOOD CELL COUNT(AUTO) 3.59 MIL/uL (4.2-6.2); WHITE BLOOD COUNT (AUTO) 8.3 K/uL (4.8-10.8)
[2018-05-06] MEDS ORDERED: hydrALAZINE HCL 20 MG/ML VIAL IVP ONE (07:00)
--- NOTE | 2018-05-06 07:05 | NUR ---
CLOSING NOTE Administered prn medication as ordered for elevated BP, 195/115, HR 67. Patient reports pain level decreased and requested a warm blanket, which was provided. Needs met throughout shift. Safety precautions in place and call light near. Will endorse care to dayshift nurse.
[2018-05-06 07:08] LABS: CALCIUM 8.4 mg/dL (8.4-11.0); POTASSIUM 5.7 mmol/L (3.5-5.1)
[2018-05-06 07:14] LABS: CREATININE 8.07 mg/dL (0.55-1.30)
[2018-05-06 08:00] VITALS: BP_SYST 187
--- NOTE | 2018-05-06 08:00 | NUR ---
OPENING NOTE: RECEIVED REPORT FROM NIGHT NURSE. PATIENT IS RESTING COMFORTABLY IN BED. NO S/S OF DISTRESS OR SOB. PATIENT IS ALERT AND ORIENTED, ABLE TO EXPRESS NEEDS, AND ASK FOR ASSISTANCE. IV IS PATENT AND SALINE LOCKED. PATIENT ON NASAL CANNULA, 3 L. CALL LIGHT IN REACH, BED IN LOWEST POSITION, AND WILL CONTINUE TO MONITOR.
[2018-05-06] MEDS: METOPROLOL TARTRATE 25 MG TABLET PO SCH ×2 (09:06→21:56)
[2018-05-06] MEDS: NIFEDIPINE 90 MG TABLET.SA (PROCARDIA XL 90 MG) PO SCH (09:06)
[2018-05-06] MEDS: BRIMONIDINE TARTRATE 0.2% 5 mL EYE DROPS BOTH EYES SCH ×2 (09:07→21:59)
[2018-05-06] MEDS: TIMOLOL MALEATE 0.5% OPHTHALMIC DROPS 5 ML BOTH EYES SCH ×2 (09:07→21:59)
[2018-05-06] MEDS: HEPARIN SODIUM,PORCINE 5000 UNITS/ML VIAL SUBCUT SCH ×2 (09:08→21:53)
[2018-05-06 10:12] VITALS: BP_SYST 158
--- NOTE | 2018-05-06 10:27 | NUR ---
RN ROUNDS PATIENT IS RESTING COMFORTABLY IN BED. NO S/S OF DISTRESS OR SOB. PATIENT IS ALERT AND ORIENTED. PATIENT MEDICATED FOR 9/10 PAIN PER PRN ORDERS. PATIENT EDUCATED ON MEDICATION AND MEDICATION SIDE EFFECTS. PATIENT INSTRUCTED TO USE CALL LIGHT TO ASK FOR ASSISTANCE BEFORE GETTING UP. PATIENT VERBALIZED UNDERSTANDING. CALL LIGHT IN REACH, BED IN LOWEST POSITION ,AND WILL CONTINUE TO MONITOR.
[2018-05-06 11:10] VITALS: BP_SYST 135
[2018-05-06] MEDS: ONDANSETRON HCL 4 MG/2 ML VIAL IVP PRN (11:44)
--- NOTE | 2018-05-06 12:02 | NUR ---
RN rounds patient is resting comfortably in bed. no s/s of distress or sob. patient given prn nausea medication. blood sugar was within normal limits. patient is alert and oriented. no other needs at this time. call light in reach, bed in lowest position, and will continue to monitor.
[2018-05-06] MEDS: hydrALAZINE HCL 25 MG TABLET PO SCH ×2 (14:09→21:58)
--- NOTE | 2018-05-06 14:22 | NUR ---
RN ROUNDS PATIENT IS RESTING COMFORTABLY IN BED. NO S/S OF DISTRESS OR SOB. PATIENT IS ALERT AND ORIENTED. PATIENT RECENTLY MEDICATED FOR PAIN, PER PRN ORDER. CALL LIGHT IN REACH, BED IN LOWEST POSITION, AND WILL CONTINUE TO MONITOR.
[2018-05-06 15:06] VITALS: BP_SYST 161
--- NOTE | 2018-05-06 16:12 | NUR ---
RN ROUNDS PATIENT IS RESTING COMFORTABLY IN BED. NO S/S OF DISTRESS OR SOB. PATIENT IS ALERT AND ORIENTED. PATIENT ASSISTED TO THE BATHROOM. STEADY GAIT. CALL LIGHT IN REACH, BED IN LOWEST POSITION, AND WILL CONTINUE TO MONITOR.
--- NOTE | 2018-05-06 18:17 | NUR ---
CLOSING NOTE: PATIENT IS RESTING COMFORTABLY IN BED. NO S/S OF DISTRESS OR SOB. FAMILY IS AT BEDSIDE. PATIENT IS ALERT AND ORIENTED, ABLE TO EXPRESS NEEDS, AND ASK FOR ASSISTANCE. ALL NEEDS MET DURING SHIFT. CALL LIGHT IN REACH, BED IN LOWEST POSITION, AND WILL GIVE REPORT TO NIGHT NURSE.
--- NOTE | 2018-05-06 19:29 | NUR ---
OPENING NOTE Received patient awake, AOx4 resting in bed. Family is visiting at bedside and patient is eating soup. Patient refuses the bed alarm and states family is present if he needs help. 20 SL to LFA. Bed is locked to lowest position and call light is within reach. Updated board and reviewed plan of care.
[2018-05-06 20:30] VITALS: BP_SYST 143
[2018-05-06] MEDS: LATANOPROST 2.5 ML DROPS (XALATAN) BOTH EYES SCH (21:58)
--- NOTE | 2018-05-06 22:15 | NUR ---
Rounds Patient was administered scheduled medications and tolerated. Education was provided regarding indications and side effects and he verbalized understanding. He also requested pain medication for severe pain and it was administered as ordered. He is concerned that dialysis has not been started. I let him know I would follow-up and inform him what is the plan. He had no further needs. Will monitor.
--- NOTE | 2018-05-06 22:50 | NUR ---
s/w Guillermina, dialysis nurse S/W Guillermina; she said that she was not notified of the dialysis ordered for today and it was too late to send a nurse to start dialysis. She said she was notified of dialysis for Monday. She asked me to call Dr. Martins and let him know.
--- NOTE | 2018-05-06 22:57 | NUR ---
S/W Dr. Martins Spoke with Dr. Martins to inform him that the dialysis ordered for today was not done. He said patient has dialysis on monday and go ahead with that order. I let him know I spoke w/ Sarmiento and she is aware of the order for Monday and will be here early. Dr. Martins was agreeable to dialysis on Monday.
[2018-05-06] MEDS: ACETAMINOPHEN 325 MG TABLET PO PRN (23:21)
[2018-05-07 00:01] VITALS: BP_SYST 136
[2018-05-07] MEDS: HYDROmorphone 2 MG/ML VIAL IVP PRN ×4 (02:08→20:04)
--- NOTE | 2018-05-07 02:18 | NUR ---
ROUNDS - C/O PAIN Patient called to request pain medication, reporting severe pain to LUQ. Administered medication for severe pain as ordered. No further needs. Call light near, will monitor.
[2018-05-07] MEDS: cloNIDine HCL 0.2 MG TABLET PO PRN (03:52)
[2018-05-07 04:00] VITALS: BP_SYST 163
--- NOTE | 2018-05-07 04:05 | NUR ---
ROUNDS - elevated BP Vital signs were taken and patient had an elevated BP of 163/93, HR 71. Administered prn medication, catpress tablet, as ordered for elevated BP. Patient requested apple juice, it was provided and he had no further needs. Will monitor.
--- NOTE | 2018-05-07 05:16 | NUR ---
Paged Dr. San, Dr. Thurman is cosmetic surgeon. BRANNON Campuzano spoke with the doctor.
--- NOTE | 2018-05-07 05:23 | NUR ---
S/W Dr. Thurman I informed Dr. Thurman the patient is requesting ativan and the mediation has been discontinued. He ordered one dose one time of ativan 1mg injection, I read back and entered the order.
[2018-05-07] MEDS ORDERED: LORazepam 2 MG/ML VIAL IVP SCH (06:00)
[2018-05-07] MEDS: METOCLOPRAMIDE HCL 10 MG/2 ML VIAL IVP SCH ×3 (06:10→22:33)
[2018-05-07] MEDS: hydrALAZINE HCL 25 MG TABLET PO SCH ×3 (06:21→22:34)
[2018-05-07] MEDS: ACETAMINOPHEN 325 MG TABLET PO PRN (06:28)
--- NOTE | 2018-05-07 06:30 | NUR ---
Closing note Patient is awake and resting he received due medications. He also requested pain medication for severe pain and it was administered as ordered. Needs met throughout shift. Will endorse care to day shift nurse.
[2018-05-07 07:00] LABS: BASOPHILS # (AUTO) 0.1 K/uL (0.0-0.2); BASOPHILS % (AUTO) 0.7 % (0.0-2.0); EOSINOPHILS # (AUTO) 0.1 K/uL (0.0-0.4); EOSINOPHILS % (AUTO) 1.1 % (0.0-4.0); HEMATOCRIT 32.3 % (36-54); HEMOGLOBIN 10.7 g/dL (14.0-18.0); LYMPHOCYTES # (AUTO) 1.9 K/uL (1.0-5.5); LYMPHOCYTES % (AUTO) 21.4 % (20.5-51.5); MEAN CORPUSCULAR HEMOGLOBIN 31 pg (27-31); MEAN CORPUSCULAR HGB CONC 33 % (32-36); MEAN CORPUSCULAR VOLUME 94 fL (79.0-98.0); MONOCYTES # (AUTO) 0.6 K/uL (0.0-1.0); NEUTROPHILS # (AUTO) 6.3 K/uL (1.8-7.7); NEUTROPHILS % (AUTO) 69.8 % (40.0-70.0); PLATELET COUNT (AUTO) 266 K/uL (130-430); RED BLOOD CELL COUNT(AUTO) 3.45 MIL/uL (4.2-6.2); RED CELL DISTRIBUTION WIDTH 15.4 % (9.0-15.0)
[2018-05-07 07:25] LABS: CALCIUM 8.1 mg/dL (8.4-11.0)
[2018-05-07 07:44] LABS: POTASSIUM 6.3 mmol/L (3.5-5.1)
[2018-05-07 07:45] LABS: CREATININE 10.93 mg/dL (0.55-1.30)
--- NOTE | 2018-05-07 07:45 | NUR ---
OPENING NOTE At initial assessment, patient is awake but no s/s of acute distress, eating breakfast at this time. Breathing even and unlabored. IV site on the LFA 20 G patent and intact, saline locked. Right permacath [address]. Patient is scheduled to have dialysis today. Safety and fall precautions in place, bed low and locked, side rails up x3, call light within reach, will continue to monitor.
[2018-05-07 08:19] VITALS: BP_SYST 150
[2018-05-07] MEDS: TIMOLOL MALEATE 0.5% OPHTHALMIC DROPS 5 ML BOTH EYES SCH ×2 (08:27→21:00)
[2018-05-07] MEDS: BRIMONIDINE TARTRATE 0.2% 5 mL EYE DROPS BOTH EYES SCH ×2 (08:27→21:00)
[2018-05-07] MEDS: METOPROLOL TARTRATE 25 MG TABLET PO SCH ×2 (08:32→20:10)
[2018-05-07] MEDS: NIFEDIPINE 90 MG TABLET.SA (PROCARDIA XL 90 MG) PO SCH (08:32)
[2018-05-07] MEDS: HEPARIN SODIUM,PORCINE 5000 UNITS/ML VIAL SUBCUT SCH ×2 (08:33→22:31)
[2018-05-07] MEDS ORDERED: COMMUNICATION ORDER XX ONE (09:45)
[2018-05-07] MEDS ORDERED: HEPARIN SODIUM,PORCINE 5000 UNITS/ML VIAL IV ONE (10:15)
--- NOTE | 2018-05-07 11:08 | NUR ---
PAIN/ROUNDS Patient is receiving hemodialysis, awake, no respiratory distress noted, reports 10/10 sharp pain on the left abdomen, PRN Dilaudid 1 mg IVP given as ordered. IV site patent and intact, saline locked. AM meds taken as ordered and tolerated well. Safety precautions observed, call light within reach, will continue to monitor.
[2018-05-07] MEDS ORDERED: HYDROmorphone 1 MG INJ. 1 MG/ML AMPUL ONE (11:12)
[2018-05-07] MEDS: INSULIN ASPART 100 UNITS/ML, 10 ML VIAL (NovoLOG) SUBCUT PRN ×2 (11:18→17:45)
[2018-05-07 11:35] VITALS: BP_SYST 137
[2018-05-07] MEDS ORDERED: hydrALAZINE HCL 25 MG TABLET PO SCH (14:00)
--- NOTE | 2018-05-07 14:15 | NUR ---
EDUCATION PROVIDED Patient ate Maori food for lunch. Per patient, he had beef with broccoli and steamed white rice. Education provided regarding complying to renal diet to patient and family, and patient verbalized understanding.
--- NOTE | 2018-05-07 14:55 | NUR ---
SPOKE WITH DR. RUCKER Spoke with Dr. Rucker and informed him regarding patient's request for Ativan. Dr. Rucker with new order, order read back and to be entered by RN.
--- NOTE | 2018-05-07 15:14 | NUR ---
PAIN/ROUNDS Patient is awake, reports 9/10 sharp pain on the left abdomen, PRN Dilaudid 1 mg IVP given as ordered. Breathing even and unlabored. IV site patent and intact, saline locked. Call light within reach, will continue to monitor.
[2018-05-07 15:46] VITALS: BP_SYST 142
[2018-05-07] MEDS: LORazepam 2 MG/ML VIAL IM PRN ×2 (15:50→20:08)
[2018-05-07] MEDS ORDERED: LORazepam 2 MG/ML VIAL ONE (15:58)
--- NOTE | 2018-05-07 16:50 | NUR ---
ROUNDS Patient is resting with eyes closed, no respiratory distress noted. No further needs at this time. Safety and fall precautions in place. Call light within reach, will continue to monitor.
--- NOTE | 2018-05-07 18:30 | NUR ---
CLOSING NOTE Patient is resting with eyes closed but easily arousable, in no acute distress. No respiratory distress noted. IV site patent and intact, saline locked. Permacath in place, covered with transparent dressing. Safety and fall precautions in place, bed low and locked, side rails up x2, call light within reach. All needs met and anticipated throughout the shift, will endorse plan of care
[2018-05-07 19:00] VITALS: BP_SYST 123
--- NOTE | 2018-05-07 20:00 | NUR ---
Received pt in bed.Patient is awake but no s/s of acute distress listening to tv at this time. Breathing even and unlabored. IV site on the LFA 20 G patent and intact, saline locked. Right permacath [address] Safety and fall precautions in place, bed low and locked, side rails up x3, call light within reach, will continue to monitor
[2018-05-07] MEDS: LATANOPROST 2.5 ML DROPS (XALATAN) BOTH EYES SCH (21:00)
--- NOTE | 2018-05-08 | NUR ---
Pt up c/o pain and yelling at the nurse because it is not time for pain medication. pt uncooperative and angry does not wsnt to wait until ti is time for medication. Safety and fall precautions in place, bed low and locked, side rails up x3, call light within reach, will continue to monitor
[2018-05-08 00:25] VITALS: BP_SYST 132
[2018-05-08] MEDS: LORazepam 2 MG/ML VIAL IM PRN ×4 (00:42→19:48)
[2018-05-08] MEDS: HYDROmorphone 2 MG/ML VIAL IVP PRN ×6 (00:43→21:20)
[2018-05-08] MEDS: HYDROcodone/ACETAMIN 10-325 MG TAB PO PRN ×2 (00:50→15:36)
[2018-05-08] MEDS: ZOLPIDEM TARTRATE 5 MG TABLET PO PRN ×2 (00:51→22:41)
[2018-05-08] MEDS: ACETAMINOPHEN 325 MG TABLET PO PRN ×2 (03:35→10:24)
[2018-05-08] MEDS: cloNIDine HCL 0.2 MG TABLET PO PRN (03:46)
--- NOTE | 2018-05-08 04:00 | NUR ---
Vital signs were taken and patient had an elevated BP of 183/100, HR 71. Administered prn medication, catpress tablet, as ordered for elevated BP. Patient also awaiitng his oain medication which is not due for 30 minutes Will monitor.
[2018-05-08] MEDS: ONDANSETRON HCL 4 MG/2 ML VIAL IVP PRN (06:09)
--- NOTE | 2018-05-08 06:39 | NUR ---
CLOSING NOTE Patient resting in the bed. No acute distress. Pain med given around clock. Skin warm and dry to touch. SL intact to [facility], no redness, no swelling, patent. [place] cath intact to RUC, no redness, no bleeding, covered with transparent dressing. All needs met. Hourly rounding during shift. Safety measure maintained. Bed locked in low position, side rails up. Call light within reached. Will endorse to night nurse. Addendum: 05/08/18 at 1936 by Mary Aguirre RN WRONG TIME SHOULD BE 5571
[2018-05-08 07:50] VITALS: BP_SYST 176
[2018-05-08 07:55] LABS: CALCIUM 8.4 mg/dL (8.4-11.0)
--- NOTE | 2018-05-08 07:55 | NUR ---
OPENING NOTE Patient resting in the bed. No acute distress. AAO x 4. Skin warm and dry to touch. SL intact to LFA, no redness, no swelling, patent. Discussed the safety issue, use call light when need help, and plan of care, verbally understanding. Safety measure maintained. Bed locked in low position, side rails up. Call light within reached. Will continue to monitor.
[2018-05-08 08:09] LABS: BASOPHILS % (AUTO) 0.5 % (0.0-2.0); EOSINOPHILS # (AUTO) 0.1 K/uL (0.0-0.4); HEMATOCRIT 30.9 % (36-54); HEMOGLOBIN 10.3 g/dL (14.0-18.0); LYMPHOCYTES # (AUTO) 1.6 K/uL (1.0-5.5); LYMPHOCYTES % (AUTO) 16.9 % (20.5-51.5); MEAN CORPUSCULAR HEMOGLOBIN 31 pg (27-31); MEAN CORPUSCULAR HGB CONC 33 % (32-36); MEAN CORPUSCULAR VOLUME 95 fL (79.0-98.0); MONOCYTES # (AUTO) 0.6 K/uL (0.0-1.0); NEUTROPHILS # (AUTO) 7.4 K/uL (1.8-7.7); NEUTROPHILS % (AUTO) 75.6 % (40.0-70.0); PLATELET COUNT (AUTO) 225 K/uL (130-430); RED BLOOD CELL COUNT(AUTO) 3.26 MIL/uL (4.2-6.2); RED CELL DISTRIBUTION WIDTH 15.5 % (9.0-15.0); WHITE BLOOD COUNT (AUTO) 9.7 K/uL (4.8-10.8)
[2018-05-08 08:49] LABS: POTASSIUM 6.9 mmol/L (3.5-5.1)
[2018-05-08 08:50] LABS: CREATININE 10.52 mg/dL (0.55-1.30)
[2018-05-08] MEDS: NIFEDIPINE 90 MG TABLET.SA (PROCARDIA XL 90 MG) PO SCH (08:59)
[2018-05-08] MEDS: METOPROLOL TARTRATE 25 MG TABLET PO SCH ×2 (08:59→22:42)
[2018-05-08] MEDS: HEPARIN SODIUM,PORCINE 5000 UNITS/ML VIAL SUBCUT SCH ×2 (09:04→22:53)
[2018-05-08] MEDS: BRIMONIDINE TARTRATE 0.2% 5 mL EYE DROPS BOTH EYES SCH ×2 (09:06→22:47)
[2018-05-08] MEDS: TIMOLOL MALEATE 0.5% OPHTHALMIC DROPS 5 ML BOTH EYES SCH ×2 (09:07→22:47)
--- NOTE | 2018-05-08 09:10 | NUR ---
K=6.9, CREATINE=10.52 Called Travis Wolf and waited to call back.
--- NOTE | 2018-05-08 10:18 | NUR ---
CHRISTINA SAMANO CALLED BACK Received the call back from Dr. Romero, Informed the critical lab, creatine=10.52, K=6.9, with order hemodialysis today and let dialysis nurse to call him when arrive.
--- NOTE | 2018-05-08 11:28 | NUR ---
SEEN BY DR. PIZARRO.
--- NOTE | 2018-05-08 11:32 | NUR ---
DIALYSIS NURSE ARRIVED AND CALLED DR. REAL TO OBTAIN ORDER.
[2018-05-08 12:51] VITALS: BP_SYST 173
[2018-05-08] MEDS ORDERED: HEPARIN SODIUM,PORCINE 5000 UNITS/ML VIAL IVP ONE (14:00)
--- NOTE | 2018-05-08 14:50 | NUR ---
HEMODIALYSIS COMPLETED WITH 3L OUT
[2018-05-08] MEDS: METOCLOPRAMIDE HCL 10 MG/2 ML VIAL IVP SCH ×3 (15:25→22:44)
[2018-05-08] MEDS: hydrALAZINE HCL 25 MG TABLET PO SCH ×3 (15:25→22:43)
[2018-05-08 16:09] VITALS: BP_SYST 144
--- NOTE | 2018-05-08 16:39 | NUR ---
CLOSING NOTE Patient resting in the bed. No acute distress. Pain med given around clock. Skin warm and dry to touch. SL intact to LFA, no redness, no swelling, patent. [place] cath intact to RUC, no redness, no bleeding, covered with transparent dressing. All needs met. Hourly rounding during shift. Safety measure maintained. Bed locked in low position, side rails up. Call light within reached. Will endorse to night nurse.
--- NOTE | 2018-05-08 17:51 | NUR ---
Dietitian Recommendations *Recommend a CCHO/Renal diet. Provide Low sugar snacks as needed. Please refer to Nutrition Assessment for details. CUCA PERRY Co-signed RJ BENTLEY Signed: 05/08/18 at 175 by Trina THURMAN <Co-Signature Required> Co-Signed: 05/08/18 at [address]
[2018-05-08] MEDS: INSULIN ASPART 100 UNITS/ML, 10 ML VIAL (NovoLOG) SUBCUT PRN (18:16)
--- NOTE | 2018-05-08 19:20 | NUR ---
Bedside report received from day shift nurse. Pt is fully AAO x4. Family members are visiting at the bedside. Skin is warm and dry to touch. No signs or symptoms of hypoglycemia or hyperglycemia noted. Saline lock in LFA is without any signs of infiltration. Right chest Hemodialysis Catheter noted with the dressing dry and intact. Fall and safety precautions are in place. Pt was instructed to call for assistance as needed and pt verbalized understanding. Call light is with pt and bed is in the lowest and locked positions.
--- NOTE | 2018-05-08 19:48 | NUR ---
Ativan 1mg was given IV per pt's request for c/o anxiety. Addendum: 05/09/18 at 0752 by Jeanie Holt RN Correction: Ativan given IM.
[2018-05-08 20:00] VITALS: BP_SYST 124
--- NOTE | 2018-05-08 21:20 | NUR ---
Dilaudid 1mg was given IV per pt's request for c/o abdominal pain.
--- NOTE | 2018-05-08 21:50 | NUR ---
Pt is resting comfortably in bed. No c/o pain.
--- NOTE | 2018-05-08 22:40 | NUR ---
Accucheck 140 and no Insulin coverage needed. Pt was offered HS snacks, but pt declined. Skin remains warm and dry to touch.
--- NOTE | 2018-05-08 22:41 | NUR ---
Ambien 5mg was given po per pt's request for sleep. Fall and safety precautions are in place. Call light is with pt and pt declined bed alarm. Bed is in the lowest and locked positions.
[2018-05-08] MEDS: LATANOPROST 2.5 ML DROPS (XALATAN) BOTH EYES SCH (22:49)
--- NOTE | 2018-05-09 | NUR ---
Pt is sleeping without any distress noted. Call light is with pt. Bed is in the lowest and locked positions.
[2018-05-09 00:26] VITALS: BP_SYST 154
[2018-05-09] MEDS: HYDROmorphone 2 MG/ML VIAL IVP PRN ×4 (01:36→13:37)
--- NOTE | 2018-05-09 01:36 | NUR ---
Dilaudid 1mg was given IV per pt's request for c/o abdominal pain.
--- NOTE | 2018-05-09 02:06 | NUR ---
Pt is resting comfortably in bed. Fall and safety precautions are in place.
[2018-05-09] MEDS: LORazepam 2 MG/ML VIAL IM PRN ×2 (02:56→10:24)
--- NOTE | 2018-05-09 02:56 | NUR ---
Ativan 1mg was given IV per pt's request for c/o anxiety. Addendum: 05/09/18 at 0753 by Jeanie Holt RN Correction: Ativan given IM.
[2018-05-09] MEDS: ACETAMINOPHEN 325 MG TABLET PO PRN (03:24)
--- NOTE | 2018-05-09 03:24 | NUR ---
Tylenol 325mg was given po per pt's request for c/o headache.
[2018-05-09] MEDS: HYDROcodone/ACETAMIN 10-325 MG TAB PO PRN (04:04)
--- NOTE | 2018-05-09 04:45 | NUR ---
Robaxin 500mg was given for headache.
--- NOTE | 2018-05-09 05:40 | NUR ---
Dilaudid 1mg was given IV per pt's request for c/o abdominal pain.
[2018-05-09 06:54] LABS: CALCIUM 8.7 mg/dL (8.4-11.0); POTASSIUM 5.7 mmol/L (3.5-5.1)
[2018-05-09] MEDS: hydrALAZINE HCL 25 MG TABLET PO SCH (06:58)
[2018-05-09] MEDS: METOCLOPRAMIDE HCL 10 MG/2 ML VIAL IVP SCH (06:59)
[2018-05-09 07:02] LABS: CREATININE 8.15 mg/dL (0.55-1.30)
[2018-05-09 07:09] LABS: BASOPHILS # (AUTO) 0.1 K/uL (0.0-0.2); BASOPHILS % (AUTO) 0.6 % (0.0-2.0); EOSINOPHILS # (AUTO) 0.1 K/uL (0.0-0.4); EOSINOPHILS % (AUTO) 0.9 % (0.0-4.0); HEMATOCRIT 34.3 % (36-54); HEMOGLOBIN 11.4 g/dL (14.0-18.0); LYMPHOCYTES % (AUTO) 10.8 % (20.5-51.5); MEAN CORPUSCULAR HEMOGLOBIN 32 pg (27-31); MEAN CORPUSCULAR HGB CONC 33 % (32-36); MEAN CORPUSCULAR VOLUME 95 fL (79.0-98.0); MONOCYTES # (AUTO) 0.5 K/uL (0.0-1.0); MONOCYTES % (AUTO) 5.6 % (1.7-9.3); NEUTROPHILS % (AUTO) 82.1 % (40.0-70.0); PLATELET COUNT (AUTO) 245 K/uL (130-430); RED BLOOD CELL COUNT(AUTO) 3.62 MIL/uL (4.2-6.2); RED CELL DISTRIBUTION WIDTH 15.6 % (9.0-15.0); WHITE BLOOD COUNT (AUTO) 9.7 K/uL (4.8-10.8)
--- NOTE | 2018-05-09 07:20 | NUR ---
late entry: critical result for creatinin-level of 8.15 endorsed to night nursejoya
--- NOTE | 2018-05-09 07:25 | NUR ---
IV restarted in [facility] by change Nurse Sanjuanita.
[2018-05-09] MEDS ORDERED: INSULIN LISPRO SLIDING SCALE 100 UNITS/ML VIAL (humaLOG) SUBCUT PRN (07:45)
--- NOTE | 2018-05-09 07:47 | NUR ---
OPENING NOTE Patient resting in the bed. No acute distress. AAO x 4. Skin warm and dry to touch. SL intact to LAC, no redness, no swelling, patent. Mother at bedside. Safety measure maintained. Call light within reached. Bed locked in low position, side rails up. Will continue to monitor.
[2018-05-09 08:00] VITALS: BP_SYST 172
[2018-05-09] MEDS: METOPROLOL TARTRATE 25 MG TABLET PO SCH (08:46)
[2018-05-09] MEDS: NIFEDIPINE 90 MG TABLET.SA (PROCARDIA XL 90 MG) PO SCH (08:47)
[2018-05-09] MEDS: TIMOLOL MALEATE 0.5% OPHTHALMIC DROPS 5 ML BOTH EYES SCH (08:47)
[2018-05-09] MEDS: BRIMONIDINE TARTRATE 0.2% 5 mL EYE DROPS BOTH EYES SCH (08:47)
[2018-05-09] MEDS: HEPARIN SODIUM,PORCINE 5000 UNITS/ML VIAL SUBCUT SCH (08:49)
--- NOTE | 2018-05-09 09:43 | NUR ---
DILAUDID GIVEN Patient c/o abd pain 11/27, Dilaudid 1mg IVP given as ordered. No acute distress. Safety measure maintained. Call light within reached. Continue to monitor.
--- NOTE | 2018-05-09 10:25 | NUR ---
ATIVAN GIVEN Patient c/o feeling anxious, Ativan 1mg IM given as ordered. No acute distress. Mother left. Safety measure maintained. Bed locked in low position, side rails up, bed alarm on. Call light within reached. Continue to monitor.
--- NOTE | 2018-05-09 11:11 | NUR ---
SEEN BY Champ DODGE Dr. ordered Clonidine HCL 0.2mg x1, then check BP one hour after if BP back to patient's base line, may discharge home.
--- NOTE | 2018-05-09 11:14 | NUR ---
KO=544/100, INFORMED TO DR. PIZARRO IF HE STILL WANTS TO GIVE MEDICATION TO PATIENT. PER DR. PIZARRO TO DC THE MEDICATION AND PATIENT CAN DISCHARGE HOME.
[2018-05-09] MEDS ORDERED: cloNIDine HCL 0.2 MG TABLET PO ONE (11:15)
[2018-05-09 11:31] VITALS: BP_SYST 152
[2018-05-09 11:42] VITALS: BP_SYST 142
--- NOTE | 2018-05-09 11:50 | NUR ---
FT=350 No insulin needed per sliding scale.
--- NOTE | 2018-05-09 13:38 | NUR ---
DILAUDID GIVEN Patient c/o abd pain 10/27, Dilaudid 1mg IVP given as ordered. No acute distress. Safety measure maintained. Call light within reached. Continue to monitor.
[2018-05-09 13:55] VITALS: BP_SYST 142
[2018-05-09] MEDS ORDERED: HYDR-4038 PO (14:06)
[2018-05-09] MEDS ORDERED: NIFE60TA18 PO (14:07)
--- NOTE | 2018-05-09 15:05 | NUR ---
D/C Patient Patient given medication reconciliation form and D/C instructions. Exit Care provided. Patient verbalized understanding. MD discussed with patient the results and treatment provided. Ambulatory with steady gait for discharge to home. Patient in stable condition, ID band removed. IV catheter removed, intact and dressing applied, no active bleeding. Rx of Hydralazine 25mg and Nifedipine XL 60mg given. Patient educated on pain management. All belongings sent with patient.
== END 2018-05-09 15:05 | disposition home or self-care (01) | DRG 73 ==
LOC: SED 21:35 → STU 05-04 00:19
PROVIDERS: ADMIT General Practice; ATTEND General Practice
PROC: 5A1D70Z Performance of Urinary Filtration, Intermittent, Less than 6 Hours Per Day (ICD-10-PCS; 2018-05-04)
PROC: 5A1D70Z Performance of Urinary Filtration, Intermittent, Less than 6 Hours Per Day (ICD-10-PCS; principal; 2018-05-05)
PROC: 5A1D70Z Performance of Urinary Filtration, Intermittent, Less than 6 Hours Per Day (ICD-10-PCS; 2018-05-07)
PROC: 5A1D70Z Performance of Urinary Filtration, Intermittent, Less than 6 Hours Per Day (ICD-10-PCS; 2018-05-08)
DX: E11.43 Type 2 diabetes mellitus with diabetic autonomic (poly)neuropathy (principal); N17.0 Acute kidney failure with tubular necrosis; N18.6 End stage renal disease; F11.20 Opioid dependence, uncomplicated; I13.11 Hypertensive heart and chronic kidney disease without heart failure, with stage 5 chronic kidney disease, or end stage renal disease; I16.0 Hypertensive urgency; H54.8 Legal blindness, as defined in USA; K31.84 Gastroparesis; D63.1 Anemia in chronic kidney disease; G89.4 Chronic pain syndrome; E66.9 Obesity, unspecified; Z91.19 Patient's noncompliance with other medical treatment and regimen; Z99.2 Dependence on renal dialysis; Z68.38 Body mass index [BMI] 38.0-38.9, adult; Z88.8 Allergy status to other drugs, medicaments and biological substances; Z88.5 Allergy status to narcotic agent; Z79.899 Other long term (current) drug therapy; Z79.84 Long term (current) use of oral hypoglycemic drugs; E11.22 Type 2 diabetes mellitus with diabetic chronic kidney disease; E11.319 Type 2 diabetes mellitus with unspecified diabetic retinopathy without macular edema
CPT/HCPCS: 36415; 74018; 80048; 80053; 82962; 83036; 83690-TC; 83735-TC; 85025; 87081; 90935; 90937; 93005; 96374; 96375; 99285; G0378; J0360; J1170; J1200; J1644; J1815; J2060; J2405; J2765; J2997; J3010; J7030

== ENCOUNTER 2018-05-23 12:26 | Emergency (ER) | payer OTHER, MEDICAID ==
[~2018-05-23] VITALS: Ht 177.8 cm; Wt 113.4 kg
[2018-05-23 12:26] VITALS: BP_SYST 213
[~2018-05-23 12:26] MED LIST changes: -DOXY100C PO; -FLA250 PO; +HYDR-4038 PO; +NIFE60TA18 PO
[2018-05-23] MEDS ORDERED: DIPHENHYDRAMINE INJ 50 MG/ML VIAL IVP ONE (12:45)
[2018-05-23] MEDS ORDERED: PROCHLORPERAZINE EDISYLATE 10 MG/2 ML VIAL IVP ONE (12:45)
[2018-05-23] MEDS ORDERED: fentaNYL CITRATE/PF 100 MCG/2 ML AMP IVP ONE (12:45)
== END 2018-05-23 13:33 | disposition left against medical advice (07) ==
LOC: SED 12:26
DX: G89.29 Other chronic pain (principal); R07.89 Other chest pain; E11.40 Type 2 diabetes mellitus with diabetic neuropathy, unspecified; E11.43 Type 2 diabetes mellitus with diabetic autonomic (poly)neuropathy; K31.84 Gastroparesis; I10 Essential (primary) hypertension; Z99.2 Dependence on renal dialysis; Z88.6 Allergy status to analgesic agent; Z88.4 Allergy status to anesthetic agent; Z79.899 Other long term (current) drug therapy
CPT/HCPCS: 96374; 96375; 99283; J0780; J1200; J3010

== ENCOUNTER 2018-11-27 06:20 | Emergency (ER) | payer OTHER, MEDICAID ==
[~2018-11-27] VITALS: Ht 177.8 cm; Wt 113.4 kg
[~2018-11-27 06:20] MED LIST changes: -HYDR-4100 PO; -METO-290 PO; +vancomycin IV
[2018-11-27 06:26] VITALS: BP_SYST 154
--- NOTE | 2018-11-27 06:26 | NUR ---
Patient to ER bed 05 to gown for evaluation. Side rails up.
[2018-11-27 06:48] VITALS: BP_SYST 166
--- NOTE | 2018-11-27 07:05 | NUR ---
Pt c/o abd pain and uncompleted dialysis yesterday per pt. Pt reports dialysis not functioning properly.Pt h/o ESRD, HTN, legally blind.
--- NOTE | 2018-11-27 07:10 | NUR ---
ER at bedside examining patient.
--- NOTE | 2018-11-27 07:13 | NUR ---
# 18 gauge angiocath placed to left forearm. Use of asceptic technique. Opsite placed over site. Blood return noted. Blood for lab drawn from site. Flushed with 10 cc of normal saline. No evidence of infiltration noted. Patient tolerated well.
[2018-11-27 07:26] LABS: BASOPHILS # (AUTO) 0.1 K/uL (0.0-0.2); BASOPHILS % (AUTO) 0.9 % (0.0-2.0); EOSINOPHILS % (AUTO) 0.3 % (0.0-4.0); HEMATOCRIT 29.5 % (36-54); HEMOGLOBIN 9.9 g/dL (14.0-18.0); LYMPHOCYTES # (AUTO) 1.5 K/uL (1.0-5.5); LYMPHOCYTES % (AUTO) 12.6 % (20.5-51.5); MEAN CORPUSCULAR HEMOGLOBIN 31 pg (27-31); MEAN CORPUSCULAR HGB CONC 34 % (32-36); MEAN CORPUSCULAR VOLUME 93 fL (79.0-98.0); MONOCYTES # (AUTO) 0.6 K/uL (0.0-1.0); MONOCYTES % (AUTO) 4.9 % (1.7-9.3); NEUTROPHILS # (AUTO) 9.6 K/uL (1.8-7.7); NEUTROPHILS % (AUTO) 81.3 % (40.0-70.0); PLATELET COUNT (AUTO) 391 K/uL (130-430); RED BLOOD CELL COUNT(AUTO) 3.17 MIL/uL (4.2-6.2); RED CELL DISTRIBUTION WIDTH 16.9 % (9.0-15.0); WHITE BLOOD COUNT (AUTO) 11.8 K/uL (4.8-10.8)
[2018-11-27 07:37] LABS: CALCIUM 8.1 mg/dL (8.4-11.0); POTASSIUM 4.1 mmol/L (3.5-5.1)
[2018-11-27 07:41] LABS: ALBUMIN 3.4 g/dL (3.4-4.8); TOTAL BILIRUBIN 0.4 mg/dL (0.0-1.0)
[2018-11-27 07:46] LABS: CREATININE 9.21 mg/dL (0.55-1.30)
[2018-11-27] MEDS ORDERED: fentaNYL CITRATE/PF 100 MCG/2 ML AMP IVP ONE (08:00)
[2018-11-27] MEDS ORDERED: DIPHENHYDRAMINE INJ 50 MG/ML VIAL IVP ONE (08:00)
--- NOTE | 2018-11-27 08:05 | NUR ---
Pt medicated tolerated well.
[2018-11-27 08:26] VITALS: BP_SYST 156
--- NOTE | 2018-11-27 08:26 | NUR ---
Patient given written and verbal discharge instructions and verbalizes understanding. ER MD discussed with patient the results and treatment provided. Patient in stable condition. ID arm band removed. IV catheter removed intact and dressing applied, no active bleeding. no Rx given. Patient educated on pain management and to follow up with PMD. Pain Scale 3. Opportunity for questions provided and answered. Medication side effect fact sheet provided.
== END 2018-11-27 08:26 | disposition home or self-care (01) ==
LOC: SED 06:20
DX: R10.10 Upper abdominal pain, unspecified (principal); R11.2 Nausea with vomiting, unspecified; I12.9 Hypertensive chronic kidney disease with stage 1 through stage 4 chronic kidney disease, or unspecified chronic kidney disease; E11.22 Type 2 diabetes mellitus with diabetic chronic kidney disease; N18.9 Chronic kidney disease, unspecified; Z99.2 Dependence on renal dialysis; Z88.6 Allergy status to analgesic agent; Z88.8 Allergy status to other drugs, medicaments and biological substances; Z79.899 Other long term (current) drug therapy
CPT/HCPCS: 36415; 71045; 80053; 83690; 85025; 93005; 96374; 96375; 99284; J1200; J3010

== ENCOUNTER 2018-11-28 04:09 | Emergency (ER) | payer OTHER, MEDICAID ==
[~2018-11-28] VITALS: Ht 177.8 cm; Wt 113.4 kg
[2018-11-28 04:10] VITALS: BP_SYST 207
--- NOTE | 2018-11-28 04:15 | NUR ---
[facility] Side rails up. Addendum: 11/28/18 at 0553 by FREDDIE Bed 6 not 8
--- NOTE | 2018-11-28 04:37 | NUR ---
Pt BIBA with c/o of abdominal pain 11/27. Pt frequently visits ER for abdonimal pain and gastroperesis and came in for the same reason. Pt states he took dilaudid at home and vomited after. No fever, chills, or diarrhea noted. Pt received dialysis yesterdat, and was seen in the ER yesterday for the same reason as well and sent home. Will continue to monitor.
--- NOTE | 2018-11-28 04:38 | NUR ---
Dr. Daniels at bedside examining Pt.
[2018-11-28] MEDS ORDERED: DIPHENHYDRAMINE INJ 50 MG/ML VIAL IM ONE (04:45)
[2018-11-28] MEDS ORDERED: PROCHLORPERAZINE EDISYLATE 10 MG/2 ML VIAL IM ONE (04:45)
[2018-11-28] MEDS ORDERED: HYDROmorphone 2 MG/ML VIAL IM ONE (04:45)
[2018-11-28] MEDS ORDERED: HYDROmorphone 1 MG INJ. 1 MG/ML AMPUL ONE (05:24)
[2018-11-28 06:35] VITALS: BP_SYST 174
--- NOTE | 2018-11-28 06:35 | NUR ---
Patient given written and verbal discharge instructions and verbalizes understanding. ER MD discussed with patient the results and treatment provided. Patient in stable condition. ID arm band removed. Patient educated on pain management and to follow up with PMD. Pain Scale 0/10. Opportunity for questions provided and answered. Medication side effect fact sheet provided.
== END 2018-11-28 06:35 | disposition home or self-care (01) ==
LOC: SED 04:09
DX: E11.43 Type 2 diabetes mellitus with diabetic autonomic (poly)neuropathy (principal); K31.84 Gastroparesis; I12.9 Hypertensive chronic kidney disease with stage 1 through stage 4 chronic kidney disease, or unspecified chronic kidney disease; E11.22 Type 2 diabetes mellitus with diabetic chronic kidney disease; N18.9 Chronic kidney disease, unspecified; Z99.2 Dependence on renal dialysis; Z88.6 Allergy status to analgesic agent; Z88.8 Allergy status to other drugs, medicaments and biological substances; Z79.899 Other long term (current) drug therapy
CPT/HCPCS: 82962; 96372; 99283; J0780; J1170; J1200

== ENCOUNTER 2019-03-05 15:02 | Inpatient (IN) | payer OTHER, MEDICAID ==
[~2019-03-05] VITALS: Ht 180.3 cm; Wt 122.5 kg
[2019-03-05 15:05] VITALS: BP_SYST 196
[2019-03-05] MEDS ORDERED: PROCHLORPERAZINE EDISYLATE 10 MG/2 ML VIAL IVP ONE (16:00)
[2019-03-05] MEDS ORDERED: fentaNYL CITRATE/PF 100 MCG/2 ML AMP IVP ONE (16:00)
[2019-03-05] MEDS ORDERED: hydrALAZINE HCL 20 MG/ML VIAL IVP ONE (16:00)
[2019-03-05] MEDS ORDERED: DIPHENHYDRAMINE INJ 50 MG/ML VIAL IVP ONE (16:00)
[2019-03-05 16:11] LABS: BASOPHILS % (AUTO) 0.2 % (0.0-2.0); HEMATOCRIT 33.9 % (36-54); HEMOGLOBIN 11.2 g/dL (14.0-18.0); LYMPHOCYTES # (AUTO) 1.4 K/uL (1.0-5.5); LYMPHOCYTES % (AUTO) 10.8 % (20.5-51.5); MEAN CORPUSCULAR HEMOGLOBIN 31 pg (27-31); MEAN CORPUSCULAR HGB CONC 33 % (32-36); MEAN CORPUSCULAR VOLUME 94 fL (79.0-98.0); MONOCYTES # (AUTO) 0.6 K/uL (0.0-1.0); MONOCYTES % (AUTO) 4.4 % (1.7-9.3); NEUTROPHILS # (AUTO) 10.6 K/uL (1.8-7.7); NEUTROPHILS % (AUTO) 84.6 % (40.0-70.0); PLATELET COUNT (AUTO) 243 K/uL (130-430); RED CELL DISTRIBUTION WIDTH 17.3 % (9.0-15.0); WHITE BLOOD COUNT (AUTO) 12.5 K/uL (4.8-10.8)
[2019-03-05] MEDS ORDERED: NOR10 PO (16:20)
[2019-03-05] MEDS ORDERED: ONDA4TAB5 PO (16:20)
[2019-03-05 16:35] LABS: CREATININE 14.98 mg/dL (0.55-1.30)
[2019-03-05 16:42] LABS: TOTAL BILIRUBIN 0.5 mg/dL (0.0-1.0)
[2019-03-05 16:43] LABS: ALBUMIN 3.7 g/dL (3.4-4.8)
[2019-03-05] MEDS ORDERED: SODIUM BICARBONATE 8.4% VIAL 50 MEQ/50 ML VIAL INJ ONE (16:45)
[2019-03-05] MEDS ORDERED: DEXTROSE 50% JECT 50 ML DISP.SYRIN IVP ONE (16:45)
[2019-03-05] MEDS ORDERED: CALCIUM GLUCONATE 1 GM/10 ML VIAL IVP ONE (16:45)
[2019-03-05] MEDS ORDERED: INSULIN REGULAR, HUMAN 10 UNITS/0.1 ML INJ IVP ONE (16:45)
[2019-03-05] MEDS ORDERED: ASPIRIN 81 MG TAB.CHEW PO ONE (17:00)
[2019-03-05] MEDS ORDERED: METHOCARBAMOL 500 MG TABLET PO PRN (18:00)
[2019-03-05] MEDS ORDERED: NITROGLYCERIN 0.4 MG TAB.SUBL SL PRN (18:00)
[2019-03-05] MEDS ORDERED: ACETAMINOPHEN 325 MG TABLET PO PRN (18:00)
[2019-03-05 20:37] VITALS: BP_SYST 182
[2019-03-05] MEDS: LATANOPROST 2.5 ML DROPS (XALATAN) BOTH EYES SCH (21:00)
[2019-03-05] MEDS: TIMOLOL MALEATE 0.5% OPHTHALMIC DROPS 5 ML BOTH EYES SCH (21:00)
[2019-03-05] MEDS: BRIMONIDINE TARTRATE 0.2% 5 mL EYE DROPS BOTH EYES SCH (21:01)
[2019-03-05] MEDS: INSULIN LISPRO SLIDING SCALE 100 UNITS/ML VIAL (humaLOG) SUBCUT PRN (21:10)
[2019-03-05 21:37] VITALS: BP_SYST 165
[2019-03-05] MEDS: GABAPENTIN 300 MG CAPSULE PO SCH (21:43)
[2019-03-05] MEDS: hydrALAZINE HCL 25 MG TABLET PO SCH (21:43)
[2019-03-05] MEDS: METOCLOPRAMIDE HCL 10 MG/2 ML VIAL IVP SCH (22:00)
[2019-03-05] MEDS: HYDROmorphone 1 MG INJ. 1 MG/ML AMPUL IVP PRN (22:21)
[2019-03-06] VITALS (17 sets, daily range): BP systolic 89–175
[2019-03-06] MEDS ORDERED: cloNIDine HCL 0.1 MG TABLET PO PRN (00:30)
[2019-03-06] MEDS ORDERED: ALTEPLASE 2 MG VIAL MC ONE (01:26)
[2019-03-06] MEDS ORDERED: SODIUM POLYSTYRENE SULFONATE 15 GM/60 ML UDBTL ONE (01:31)
[2019-03-06] MEDS ORDERED: ALTEPLASE 2 MG VIAL MC SCH ×2 (02:00)
[2019-03-06] MEDS ORDERED: SODIUM POLYSTYRENE SULFONATE 15 GM/60 ML UDBTL PO SCH (02:00)
[2019-03-06] MEDS: HYDROmorphone 1 MG INJ. 1 MG/ML AMPUL IVP PRN ×6 (02:32→23:52)
[2019-03-06] MEDS ORDERED: HEPARIN SODIUM,PORCINE 5000 UNITS/ML VIAL IV SCH (05:00)
[2019-03-06] MEDS: METOCLOPRAMIDE HCL 10 MG/2 ML VIAL IVP SCH ×3 (06:00→22:00)
[2019-03-06 07:58] LABS: BASOPHILS # (AUTO) 0.1 K/uL (0.0-0.2); BASOPHILS % (AUTO) 1.4 % (0.0-2.0); EOSINOPHILS % (AUTO) 0.3 % (0.0-4.0); HEMATOCRIT 33.5 % (36-54); HEMOGLOBIN 11.2 g/dL (14.0-18.0); LYMPHOCYTES # (AUTO) 1.6 K/uL (1.0-5.5); LYMPHOCYTES % (AUTO) 20.7 % (20.5-51.5); MEAN CORPUSCULAR HEMOGLOBIN 31 pg (27-31); MEAN CORPUSCULAR HGB CONC 33 % (32-36); MEAN CORPUSCULAR VOLUME 93 fL (79.0-98.0); MONOCYTES # (AUTO) 0.5 K/uL (0.0-1.0); MONOCYTES % (AUTO) 6.1 % (1.7-9.3); NEUTROPHILS # (AUTO) 5.5 K/uL (1.8-7.7); NEUTROPHILS % (AUTO) 71.5 % (40.0-70.0); PLATELET COUNT (AUTO) 230 K/uL (130-430); RED BLOOD CELL COUNT(AUTO) 3.59 MIL/uL (4.2-6.2); RED CELL DISTRIBUTION WIDTH 17.4 % (9.0-15.0); WHITE BLOOD COUNT (AUTO) 7.7 K/uL (4.8-10.8)
[2019-03-06 08:15] LABS: ALBUMIN 3.4 g/dL (3.4-4.8); CALCIUM 7.3 mg/dL (8.4-11.0); POTASSIUM 3.9 mmol/L (3.5-5.1); TOTAL BILIRUBIN 0.7 mg/dL (0.0-1.0)
[2019-03-06 08:32] LABS: CREATININE 9.69 mg/dL (0.55-1.30)
[2019-03-06] MEDS: GABAPENTIN 300 MG CAPSULE PO SCH ×3 (08:37→20:59)
[2019-03-06] MEDS: PANTOPRAZOLE SODIUM 40 MG TAB PO SCH (08:37)
[2019-03-06] MEDS: amLODIPine BESYLATE 10 MG TABLET PO SCH (08:37)
[2019-03-06] MEDS: hydrALAZINE HCL 25 MG TABLET PO SCH ×3 (08:37→21:00)
[2019-03-06] MEDS: BRIMONIDINE TARTRATE 0.2% 5 mL EYE DROPS BOTH EYES SCH ×2 (09:48→21:02)
[2019-03-06] MEDS: TIMOLOL MALEATE 0.5% OPHTHALMIC DROPS 5 ML BOTH EYES SCH ×2 (10:00→21:01)
[2019-03-06] MEDS: LATANOPROST 2.5 ML DROPS (XALATAN) BOTH EYES SCH (21:02)
[2019-03-07] VITALS: BP_SYST 113
[2019-03-07] MEDS: HYDROmorphone 1 MG INJ. 1 MG/ML AMPUL IVP PRN ×5 (03:52→21:01)
[2019-03-07] MEDS: hydrALAZINE HCL 25 MG TABLET PO SCH ×3 (06:31→21:00)
[2019-03-07 06:44] LABS: BASOPHILS # (AUTO) 0.1 K/uL (0.0-0.2); BASOPHILS % (AUTO) 0.9 % (0.0-2.0); EOSINOPHILS % (AUTO) 0.3 % (0.0-4.0); HEMATOCRIT 31.9 % (36-54); HEMOGLOBIN 10.7 g/dL (14.0-18.0); LYMPHOCYTES # (AUTO) 1.4 K/uL (1.0-5.5); LYMPHOCYTES % (AUTO) 12.6 % (20.5-51.5); MEAN CORPUSCULAR HEMOGLOBIN 31 pg (27-31); MEAN CORPUSCULAR HGB CONC 34 % (32-36); MEAN CORPUSCULAR VOLUME 93 fL (79.0-98.0); MONOCYTES # (AUTO) 0.9 K/uL (0.0-1.0); MONOCYTES % (AUTO) 7.7 % (1.7-9.3); NEUTROPHILS # (AUTO) 8.7 K/uL (1.8-7.7); NEUTROPHILS % (AUTO) 78.5 % (40.0-70.0); PLATELET COUNT (AUTO) 216 K/uL (130-430); RED BLOOD CELL COUNT(AUTO) 3.42 MIL/uL (4.2-6.2); RED CELL DISTRIBUTION WIDTH 17.1 % (9.0-15.0); WHITE BLOOD COUNT (AUTO) 11.1 K/uL (4.8-10.8)
[2019-03-07 07:04] LABS: POTASSIUM 4.5 mmol/L (3.5-5.1); TOTAL BILIRUBIN 0.5 mg/dL (0.0-1.0)
[2019-03-07 07:29] LABS: CALCIUM 6.5 mg/dL (8.4-11.0)
[2019-03-07 07:30] LABS: CREATININE 11.32 mg/dL (0.55-1.30)
[2019-03-07 08:00] VITALS: BP_SYST 156
[2019-03-07] MEDS: TIMOLOL MALEATE 0.5% OPHTHALMIC DROPS 5 ML BOTH EYES SCH ×2 (08:07→20:59)
[2019-03-07] MEDS: BRIMONIDINE TARTRATE 0.2% 5 mL EYE DROPS BOTH EYES SCH ×2 (08:07→20:59)
[2019-03-07] MEDS: GABAPENTIN 300 MG CAPSULE PO SCH ×3 (08:08→21:00)
[2019-03-07] MEDS: amLODIPine BESYLATE 10 MG TABLET PO SCH (08:08)
[2019-03-07] MEDS: PANTOPRAZOLE SODIUM 40 MG TAB PO SCH (08:08)
[2019-03-07] MEDS: INSULIN LISPRO SLIDING SCALE 100 UNITS/ML VIAL (humaLOG) SUBCUT PRN ×2 (12:14→20:56)
[2019-03-07 12:47] VITALS: BP_SYST 121
[2019-03-07] MEDS ORDERED: HEPARIN SODIUM,PORCINE 5000 UNITS/ML VIAL ONE (13:43)
[2019-03-07] MEDS: METOCLOPRAMIDE HCL 10 MG/2 ML VIAL IVP SCH ×2 (14:17→22:00)
[2019-03-07 16:51] VITALS: BP_SYST 134
[2019-03-07] MEDS: ONDANSETRON HCL 4 MG/2 ML VIAL IVP PRN (18:45)
[2019-03-07 20:15] VITALS: BP_SYST 127
[2019-03-07] MEDS: LATANOPROST 2.5 ML DROPS (XALATAN) BOTH EYES SCH (20:59)
[2019-03-08 00:26] VITALS: BP_SYST 93
[2019-03-08] MEDS: ONDANSETRON HCL 4 MG/2 ML VIAL IVP PRN ×3 (01:30→16:59)
[2019-03-08] MEDS: HYDROmorphone 1 MG INJ. 1 MG/ML AMPUL IVP PRN ×5 (02:19→21:54)
[2019-03-08] MEDS: METOCLOPRAMIDE HCL 10 MG/2 ML VIAL IVP SCH ×3 (06:00→21:57)
[2019-03-08] MEDS: hydrALAZINE HCL 25 MG TABLET PO SCH ×3 (06:09→21:58)
[2019-03-08] MEDS: INSULIN LISPRO SLIDING SCALE 100 UNITS/ML VIAL (humaLOG) SUBCUT PRN ×4 (06:44→22:05)
[2019-03-08 08:00] VITALS: BP_SYST 158
[2019-03-08] MEDS: GABAPENTIN 300 MG CAPSULE PO SCH ×3 (08:34→21:59)
[2019-03-08] MEDS: amLODIPine BESYLATE 10 MG TABLET PO SCH (08:34)
[2019-03-08] MEDS: PANTOPRAZOLE SODIUM 40 MG TAB PO SCH (08:34)
[2019-03-08] MEDS: BRIMONIDINE TARTRATE 0.2% 5 mL EYE DROPS BOTH EYES SCH ×2 (08:35→22:03)
[2019-03-08] MEDS: TIMOLOL MALEATE 0.5% OPHTHALMIC DROPS 5 ML BOTH EYES SCH ×2 (08:35→22:02)
[2019-03-08 11:36] LABS: CALCIUM 7.2 mg/dL (8.4-11.0); POTASSIUM 4.7 mmol/L (3.5-5.1)
[2019-03-08 11:47] LABS: CREATININE 9.26 mg/dL (0.55-1.30)
[2019-03-08] MEDS ORDERED: HEPARIN SODIUM,PORCINE 5000 UNITS/ML VIAL IV ONE (12:00)
[2019-03-08 12:54] VITALS: BP_SYST 160
[2019-03-08 18:17] VITALS: BP_SYST 128
[2019-03-08 20:00] VITALS: BP_SYST 122
[2019-03-08] MEDS: LATANOPROST 2.5 ML DROPS (XALATAN) BOTH EYES SCH (22:06)
[2019-03-09] VITALS: BP_SYST 135
[2019-03-09] MEDS: HYDROmorphone 1 MG INJ. 1 MG/ML AMPUL IVP PRN ×3 (02:57→13:52)
[2019-03-09] MEDS: hydrALAZINE HCL 25 MG TABLET PO SCH (05:59)
[2019-03-09] MEDS: METOCLOPRAMIDE HCL 10 MG/2 ML VIAL IVP SCH (06:00)
[2019-03-09] MEDS ORDERED: METO-290 PO (10:11)
[2019-03-09] MEDS: amLODIPine BESYLATE 10 MG TABLET PO SCH (10:12)
[2019-03-09] MEDS: GABAPENTIN 300 MG CAPSULE PO SCH (10:12)
[2019-03-09] MEDS: PANTOPRAZOLE SODIUM 40 MG TAB PO SCH (10:12)
[2019-03-09] MEDS: BRIMONIDINE TARTRATE 0.2% 5 mL EYE DROPS BOTH EYES SCH (10:13)
[2019-03-09] MEDS: TIMOLOL MALEATE 0.5% OPHTHALMIC DROPS 5 ML BOTH EYES SCH (10:13)
[2019-03-09 10:58] VITALS: BP_SYST 156
[2019-03-09 12:44] VITALS: BP_SYST 125
== END 2019-03-09 15:30 | disposition home or self-care (01) | DRG 314 ==
LOC: SED 15:02 → STU 17:35 → SIC 03-06 02:13 → STU 03-06 19:30
PROVIDERS: ADMIT Internal Medicine; ATTEND Internal Medicine
PROC: 3C1ZX8Z Irrigation of Indwelling Device using Irrigating Substance, External Approach (ICD-10-PCS; 2019-03-05)
PROC: 5A1D70Z Performance of Urinary Filtration, Intermittent, Less than 6 Hours Per Day (ICD-10-PCS; principal; 2019-03-06)
PROC: 5A1D70Z Performance of Urinary Filtration, Intermittent, Less than 6 Hours Per Day (ICD-10-PCS; 2019-03-07)
PROC: 5A1D70Z Performance of Urinary Filtration, Intermittent, Less than 6 Hours Per Day (ICD-10-PCS; 2019-03-08)
DX: T82.868A Thrombosis due to vascular prosthetic devices, implants and grafts, initial encounter (principal); N18.6 End stage renal disease; I24.9 Acute ischemic heart disease, unspecified; I12.0 Hypertensive chronic kidney disease with stage 5 chronic kidney disease or end stage renal disease; K31.84 Gastroparesis; E87.70 Fluid overload, unspecified; E87.5 Hyperkalemia; Y71.2 Prosthetic and other implants, materials and accessory cardiovascular devices associated with adverse incidents; E11.43 Type 2 diabetes mellitus with diabetic autonomic (poly)neuropathy; E11.22 Type 2 diabetes mellitus with diabetic chronic kidney disease; Y84.1 Kidney dialysis as the cause of abnormal reaction of the patient, or of later complication, without mention of misadventure at the time of the procedure; E66.9 Obesity, unspecified; G89.4 Chronic pain syndrome; Z88.6 Allergy status to analgesic agent; Z88.8 Allergy status to other drugs, medicaments and biological substances; Z99.2 Dependence on renal dialysis; Z79.899 Other long term (current) drug therapy; Y92.89 Other specified places as the place of occurrence of the external cause
CPT/HCPCS: 36415; 71045; 74018; 80048; 80053; 82550-TC; 82962; 83690-TC; 83735-TC; 83880; 84132-TC; 84484; 85025; 87081; 90935; 90937; 93005; 93306; 96374; 96375; 99291; G0378; J0360; J0610; J0780; J1170; J1200; J1644; J1815; J2405; J2765; J2997; J3010; J7030